=== PATIENT | male | born 1950 | race Caucasian/White ===

== ENCOUNTER → 2016-11-25 | Outpatient (CLI) | payer MEDICARE, OTHER ==
[2016-11-25 14:07] LABS: CH 30.4; CHCM 31.9; HCT 41.8 % (39.0-53.0); HDW 2.44; HGB 13.5 gm/dL (13.0-17.5); MCHC 32.3 g/dL (31.0-37.0); MCV 95.8 fL (80.0-100.0); RBC 4.36 m/uL (4.30-5.90); RDW 15.8 % (11.5-15.5); WBC 4.6 k/uL (3.8-10.6)
[2016-11-25 14:14] LABS: INR 1.8 (<1.1); Partial Thromboplastin Time 26.7 sec (22.0-30.0); Prothrombin Time 17.7 sec (9.0-12.0)
[2016-11-25 15:08] LABS: ALT 33 U/L (21-72); AST 31 U/L (17-59); Alkaline Phosphatase 133 U/L (38-126); Anion Gap 13 mmol/L; Blood Urea Nitrogen 13 mg/dL (9-20); Calcium 9.7 mg/dL (8.4-10.2); Carbon Dioxide 24 mmol/L (22-30); Chloride 104 mmol/L (98-107); Cholesterol 140 mg/dL (<200); Glucose 107 mg/dL (74-99); HDL Cholesterol 63 mg/dL (40-60); Iron 58 ug/dL (49-181); Magnesium 1.7 mg/dL (1.6-2.3); Non-African American GFR(MDRD) >60 (>60 ml/min/1.73 sqM); Phosphorous 2.6 mg/dL (2.5-4.5); Potassium 4.2 mmol/L (3.5-5.1); Sodium 141 mmol/L (137-145); Total Bilirubin 0.7 mg/dL (0.2-1.3); Total Protein 6.6 g/dL (6.3-8.2); Triglycerides 144 mg/dL (<150)
[2016-11-25 15:19] LABS: % Iron Saturation 13.7 % (20-50); Prealbumin 27 mg/dL (18-36); Total Iron Binding Capacity 422 ug/dL (261-462)
[2016-11-25 16:14] LABS: Vitamin B12 191 pg/mL (239-931)
[2016-11-25 22:57] LABS: Hemoglobin A1C 5.4 % (4.2-6.1)
[2016-12-01 18:28] LABS: Selenium 167 mcg/L (63-160)
== END | disposition home or self-care (01) ==
LOC: LABWHC1 13:31
PROVIDERS: ATTEND Surgery Plastic and Reconstructive Surgery
DX: E21.1 Secondary hyperparathyroidism, not elsewhere classified (principal); E89.1 Postprocedural hypoinsulinemia; D50.8 Other iron deficiency anemias; K90.89 Other intestinal malabsorption; E44.0 Moderate protein-calorie malnutrition; K74.1 Hepatic sclerosis; N19 Unspecified kidney failure; K50.90 Crohn's disease, unspecified, without complications; E55.9 Vitamin D deficiency, unspecified
CPT/HCPCS: 36415; 80053; 80061; 82306; 82525; 82607; 82728; 82746; 83036; 83540; 83550; 83735; 83970; 84100; 84134; 84255; 84425; 84443; 84590; 84630; 85027; 85610; 85730

== ENCOUNTER 2017-02-15 05:13 | Inpatient (IN) | payer MEDICARE, OTHER ==
[2017-02-15] MEDS ORDERED: MAGNESIUM SULFATE-D5W PMX 1 GM in DEXTROSE/WATER 1 100ML.BAG IVPB SCH (05:45)
[2017-02-15] MEDS ORDERED: HYDROmorphone 1 MG/ML 1 ML SYRINGE IVP STA ×2 (05:51→08:49)
[2017-02-15 05:53] LABS: Basophils % (A) 0 %; CH 31.2; CHCM 34.2; Eosinophils # (A) 0.1 k/uL (0-0.7); Eosinophils % (A) 2 %; HCT 41.6 % (39.0-53.0); HDW 2.48; Luc # (Auto) 0.11; Luc % (Auto) 2; Lymphocytes % (A) 17 %; MCH 30.9 pg (25.0-35.0); MCHC 33.7 g/dL (31.0-37.0); MCV 91.6 fL (80.0-100.0); Mean Platelet Volume 7.8; Monocytes # (A) 0.3 k/uL (0-1.0); Monocytes % (A) 6 %; Neutrophils # (A) 4.4 k/uL (1.3-7.7); Neutrophils % (A) 74 %; RBC 4.54 m/uL (4.30-5.90); RDW 15.5 % (11.5-15.5); WBC (Perox) 5.94
[2017-02-15 06:00] LABS: Appearance,Urine Clear (Clear); Bilirubin,Urine Negative (Negative); Glucose,Urine (UA) Negative (Negative); Ketones,Urine Trace (Negative); Leukocyte Esterase,Urine Negative (Negative); Mucus,Urine Rare /hpf; Nitrite,Urine Negative (Negative); PH, Urine 5.5 (5.0-8.0); Particle Count 3393; Protein,Urine 2+ (Negative); RBC,Urine <1 /hpf (0-5); Squamous Epithelial Cell,Urine <1 /hpf (0-4); UA Billing (MACRO vs. MICRO) MICRO; Urobilinogen,Urine <2.0 mg/dL (<2.0); WBC,Urine 1 /hpf (0-5)
[2017-02-15 06:04] LABS: ALT 52 U/L (21-72); AST 57 U/L (17-59); Alkaline Phosphatase 140 U/L (38-126); Amylase 78 U/L (30-110); Anion Gap 9 mmol/L; Blood Urea Nitrogen 16 mg/dL (9-20); Calcium 9.5 mg/dL (8.4-10.2); Carbon Dioxide 25 mmol/L (22-30); Chloride 106 mmol/L (98-107); Glucose 116 mg/dL (74-99); Non-African American GFR(MDRD) >60 (>60 ml/min/1.73 sqM); Potassium 3.8 mmol/L (3.5-5.1); Sodium 140 mmol/L (137-145); Total Bilirubin 1.3 mg/dL (0.2-1.3); Total Protein 6.2 g/dL (6.3-8.2)
--- NOTE | 2017-02-15 06:12 | XR ---
EXAM: XR Abdomen Complete, 2 or More Views CLINICAL HISTORY: Reason: Pain TECHNIQUE: Frontal view of the abdomen/pelvis with upright view of the abdomen. COMPARISON: No relevant prior studies available. FINDINGS: Intraperitoneal space: No free air. Punctate calcification within left hemipelvis, likely phlebolith. Gastrointestinal tract: Air-filled loops of small bowel throughout the abdomen and pelvis, measuring 4.1 cm. Bones/joints: Unremarkable. IMPRESSION: Dilated loops of small bowel throughout the abdomen and pelvis which may represent an ileus or small bowel obstruction.
--- NOTE | 2017-02-15 07:58 | ED ---
General Adult HPI - General Source: patient Mode of arrival: ambulatory Limitations: no limitations <Glen Greer - Last Filed: 02/15/17 07:57> <Anand Gayle - Last Filed: 02/15/17 08:29> - General Chief complaint: Abdominal Pain Stated complaint: Abdominal Pain Time Seen by Provider: 02/15/17 05:29 - Related Data Home Medications Medication Instructions Recorded Confirmed Allopurinol [Zyloprim] 300 mg PO DAILY 02/22/14 02/15/17 Multivitamin [Men's Multi-Vitamin] 1 tab PO DAILY 03/22/14 02/15/17 Cholecalciferol [Vitamin D3] 5,000 unit PO DAILY 07/26/14 02/15/17 Calcium Carbonate/Vitamin D3 1 tab PO BID 05/07/16 02/15/17 [Calcium 600-Vit D3 400 Caplet] Acetaminophen Tab [Tylenol] 500 - 1,000 mg PO DAILY PRN 06/20/16 02/15/17 predniSONE See Taper PO DIRECTED 02/15/17 02/15/17 Previous Rx's Medication Instructions Recorded Warfarin Sodium [Coumadin] 5 mg PO DAILY #0 06/23/16 Cyanocobalamin [Vitamin B-12] 1,000 mcg PO DAILY@1200 #60 tablet 12/23/16 Hydrocodone/Acetaminophen [[place] 1 each PO Q6HR PRN #20 tab 02/15/17 5-325] Ondansetron Odt [Zofran ODT] 4 mg PO Q8HR PRN #10 tab 02/15/17 Allergies Allergy/AdvReac Type Severity Reaction Status Date / Time No Known Allergies Allergy Verified 02/15/17 07:24 Review of Systems ROS Other: All systems not noted in ROS Statement are negative. <Glen Greer - Last Filed: 02/15/17 07:57> ROS Other: All systems not noted in ROS Statement are negative. <Anand Gayle - Last Filed: 02/15/17 08:29> ROS Statement: Those systems with pertinent positive or pertinent negative responses have been documented in the HPI. Past Medical History Past Medical History: Atrial Fibrillation, Blood Disorder, GERD/Reflux, Hypertension, Osteoarthritis (OA), Pulmonary Embolus (PE), Sleep Apnea/CPAP/ BIPAP Additional Past Medical History / Comment(s): PANCREATITIS. DIVERTICULITIS. Gout. Past hx. A-fib. Cyst on kidney. Hx. of a pneumothorax after a past surg. History of Any Multi-Drug Resistant Organisms: None Reported Past Surgical History: Bariatric Surgery, Bowel Resection, Cholecystectomy, Hernia Repair, Joint Replacement Additional Past Surgical History / Comment(s): COLONOSOCPY , 05-09-16 LAP EMA/LYSIS OF ADHESIONS,Bowel resection w/colostomy, then had reversed. Left knee replacement. Paraesophageol hiatal hernia repair. Lysis of adhesions. Excision of mediastinal mass. Gastric sleeve converted to darrell en y- aug 21, 2014. Past Anesthesia/Blood Transfusion Reactions: No Reported Reaction Past Psychological History: No Psychological Hx Reported Smoking Status: Former smoker Past Alcohol Use History: Heavy Additional Past Alcohol Use History / Comment(s): SMOKING: FOR 19 YRS, STOPPED, 1987. ETOH: HISTORY OF ABUSE- ADMITS TO DRINKING 2-3 MIXED DRINKS PER DAY Past Drug Use History: None Reported - Past Family History Father Family Medical History: Myocardial Infarction ([place]) Additional Family Medical History / Comment(s): from mi, emphysema Mother Family Medical History: Cancer Additional Family Medical History / Comment(s): ovarian Sister(s) Family Medical History: Cancer Additional Family Medical History / Comment(s): breast, has heart problems- defibrillator <Glen Greer - Last Filed: 02/15/17 07:57> General Exam Limitations: no limitations <Glen Greer - Last Filed: 02/15/17 07:57> Medical Decision Making - Lab Data Result diagrams: 02/15/17 05:45 02/15/17 05:45 <Glen Greer - Last Filed: 02/15/17 07:57> - Lab Data Result diagrams: 02/15/17 05:45 02/15/17 05:45 <Anand Gayle - Last Filed: 02/15/17 08:29> - Lab Data Lab Results 02/15/17 02/15/17 02/15/17 Range/Units 05:45 05:45 05:50 WBC 6.0 (3.8-10.6) k/uL RBC 4.54 (4.30-5.90) m/uL Hgb 14.0 (13.0-17.5) gm/dL Hct 41.6 (39.0-53.0) % MCV 91.6 (80.0-100.0) fL MCH 30.9 (25.0-35.0) pg MCHC 33.7 (31.0-37.0) g/dL RDW 15.5 (11.5-15.5) % Plt Count 217 (150-450) k/uL Neutrophils % 74 % Lymphocytes % 17 % Monocytes % 6 % Eosinophils % 2 % Basophils % 0 % Neutrophils # 4.4 (1.3-7.7) k/uL Lymphocytes # 1.0 (1.0-4.8) k/uL Monocytes # 0.3 (0-1.0) k/uL Eosinophils # 0.1 (0-0.7) k/uL Basophils # 0.0 (0-0.2) k/uL Sodium 140 (137-145) mmol/L Potassium 3.8 (3.5-5.1) mmol/L Chloride 106 (98-107) mmol/L Carbon Dioxide 25 (22-30) mmol/L Anion Gap 9 mmol/L BUN 16 (9-20) mg/dL Creatinine 0.80 (0.66-1.25) mg/dL Est GFR (MDRD) Af Amer >60 (>60 ml/min/1.73 sqM) Est GFR (MDRD) Non-Af >60 (>60 ml/min/1.73 sqM) Glucose 116 H (74-99) mg/dL Calcium 9.5 (8.4-10.2) mg/dL Total Bilirubin 1.3 (0.2-1.3) mg/dL AST 57 (17-59) U/L ALT 52 (21-72) U/L Alkaline Phosphatase 140 H (38-126) U/L Total Protein 6.2 L (6.3-8.2) g/dL Albumin 3.4 L (3.5-5.0) g/dL Amylase 78 (30-110) U/L Lipase 616 H (23-300) U/L Urine Color Yellow Urine Appearance Clear (Clear) Urine pH 5.5 (5.0-8.0) Ur Specific [place] 1.020 (1.001-1.035) Urine Protein 2+ H (Negative) Urine Glucose (UA) Negative (Negative) Urine Ketones Trace H (Negative) Urine Blood Negative (Negative) Urine Nitrite Negative (Negative) Urine Bilirubin Negative (Negative) Urine Urobilinogen <2.0 (<2.0) mg/dL Ur Leukocyte Esterase Negative (Negative) Urine RBC <1 (0-5) /hpf Urine WBC 1 (0-5) /hpf Ur Squamous Epith Cells <1 (0-4) /hpf Urine Mucus Rare H (None) /hpf Disposition <Glen Greer - Last Filed: 02/15/17 07:57> <Anand Gayle - Last Filed: 02/15/17 08:29> Clinical Impression: Abdominal pain, Pancreatitis, acute Disposition: ADMITTED IP TO THIS HOSP Condition: Fair Instructions: Pancreatitis (ED) Prescriptions: Hydrocodone/Acetaminophen [[place] 5-325] 1 each PO Q6HR PRN #20 tab PRN Reason: Pain Ondansetron Odt [Zofran ODT] 4 mg PO Q8HR PRN #10 tab PRN Reason: Nausea Referrals: Rebekah Hood DO [Primary Care Provider] - 1-2 days
[2017-02-15] MEDS ORDERED: SODIUM CHLORIDE 0.9% 1,000 ML IV ONE (08:30)
[2017-02-15] MEDS ORDERED: HYDROmorphone 1 MG/ML 1 ML SYRINGE IVP PRN (08:33)
[2017-02-15] MEDS ORDERED: ONDANSETRON 4 MG/2 ML VIAL IVP PRN (08:33)
[2017-02-15 09:43] VITALS: BMI 37.6
[2017-02-15 10:55] LABS: Prothrombin Time 19.4 sec (9.0-12.0)
[2017-02-15] MEDS: MULTIVITAMINS, THERA 1 EACH TAB PO SCH (14:24)
[2017-02-15] MEDS: CHOLECALCIFEROL 1,000 UNIT TAB PO SCH (14:24)
[2017-02-15] MEDS: ALLOPURINOL 300 MG TAB PO SCH (14:24)
[2017-02-15] MEDS: predniSONE 10 MG TAB PO SCH (14:24)
[2017-02-15] MEDS: WARFARIN 5 MG TAB PO SCH (17:33)
[2017-02-15] MEDS: CALCIUM CARB-VIT D 500MG-200UN 1 EACH TAB PO SCH (17:33)
[2017-02-15] MEDS ORDERED: cloNIDine HCL 0.1 MG TAB PO PRN (17:34)
[2017-02-15] MEDS ORDERED: LORazepam 2 MG/ML SYRINGE IV PRN ×3 (17:54)
[2017-02-15] MEDS: PANTOPRAZOLE 40 MG/10 ML VIAL IVP SCH (18:25)
[2017-02-15] MEDS: TEMAZEPAM 15 MG CAP PO PRN (20:41)
[2017-02-15] MEDS: HYDROmorphone 1 MG/ML 1 ML SYRINGE IVP PRN (20:42)
[2017-02-16] MEDS: HYDROmorphone 1 MG/ML 1 ML SYRINGE IVP PRN ×3 (03:35→20:31)
[2017-02-16 06:51] LABS: Basophils % (A) 0 %; CH 30.8; CHCM 33.5; Eosinophils # (A) 0.1 k/uL (0-0.7); Eosinophils % (A) 2 %; HCT 39.4 % (39.0-53.0); HDW 2.39; Luc # (Auto) 0.11; Luc % (Auto) 2; Lymphocytes # (A) 0.9 k/uL (1.0-4.8); Lymphocytes % (A) 14 %; MCH 30.6 pg (25.0-35.0); MCV 92.5 fL (80.0-100.0); Mean Platelet Volume 7.7; Monocytes # (A) 0.5 k/uL (0-1.0); Monocytes % (A) 7 %; Neutrophils % (A) 76 %; RBC 4.26 m/uL (4.30-5.90); RDW 15.4 % (11.5-15.5); WBC 6.6 k/uL (3.8-10.6); WBC (Perox) 6.87
[2017-02-16 06:54] LABS: INR 2.2 (<1.1)
[2017-02-16 07:04] LABS: ALT 38 U/L (21-72); AST 31 U/L (17-59); Alkaline Phosphatase 121 U/L (38-126); Amylase 91 U/L (30-110); Anion Gap 4 mmol/L; Blood Urea Nitrogen 11 mg/dL (9-20); Calcium 9.5 mg/dL (8.4-10.2); Carbon Dioxide 27 mmol/L (22-30); Chloride 107 mmol/L (98-107); Cholesterol 113 mg/dL (<200); Glucose 107 mg/dL (74-99); HDL Cholesterol 65 mg/dL (40-60); Magnesium 1.6 mg/dL (1.6-2.3); Non-African American GFR(MDRD) >60 (>60 ml/min/1.73 sqM); Potassium 3.9 mmol/L (3.5-5.1); Sodium 138 mmol/L (137-145); Total Bilirubin 0.9 mg/dL (0.2-1.3); Total Protein 5.7 g/dL (6.3-8.2); Triglycerides 98 mg/dL (<150)
--- NOTE | 2017-02-16 08:17 | XR ---
EXAMINATION TYPE: XR chest 1V portable DATE OF EXAM: 02/16/2017 COMPARISON: Prior chest x-ray 12 January 2016 HISTORY: Congestive heart failure, pancreatitis TECHNIQUE: Single frontal view of the chest is obtained. FINDINGS: Patchy basilar density persists. Heart size appears accentuated which may be at least in p art due to rotation. No evident pneumothorax or sizable effusion. IMPRESSION: Similar findings to prior exam. Basilar atelectasis versus scar. Borderline cardiac size .
--- NOTE | 2017-02-16 08:21 | US ---
EXAMINATION TYPE: US abdomen limited DATE OF EXAM: 02/16/2017 COMPARISON: Prior 13 January 2016, prior CT abdomen pelvis 10 July 2016 CLINICAL HISTORY: abd distension. Epigastric pain, pancreatitis, cholecystectomy, abdominal distensio n possible ascites vs. hepatosplenomegaly, patient states right renal mass was frozen 11/07 EXAM MEASUREMENTS: Liver Length: 18.7 cm Gallbladder Wall: Surgically absent CBD: 0.5 cm Right Kidney: 13.4 x 5.4 x 5.1 cm Pancreas: Obscured by overlying bowel gas Liver: enlarged, heterogeneous Gallbladder: Surgically absent CBD: appears wnl Right Kidney: enlarged with lobulated contour. 2.5cm isoechoic lesion lower pole, difficult to visua lize as on prior exam. Possible cystic area upper pole = 2.1cm, unable to clear low-level echoes Spleen: measures 9.4cm All 4 abdominal quadrants scanned: no evidence of ascites IMPRESSION: Lesion associated with the lower pole of the right kidney is again noted and is represent ative of a solid lesion as noted on prior CT. There may be fatty infiltration of the liver, hepatocel lular disease, there is hepatomegaly. Postop change. Limited exam.
--- NOTE | 2017-02-16 08:22 | HP ---
DATE OF ADMISSION: 02/15/2017 CHIEF COMPLAINT: Abdominal pain and pancreatitis. HISTORY OF PRESENT ILLNESS: This 66-year-old gentleman with a past medical history of multiple medical problems including atrial fibrillation, history of GERD, history of DJD, pulmonary embolism, history of pancreatitis, history of bariatric surgery being followed by Dr. Hood in the outpatient setting is complaining of abdominal pain which is felt in the anterior part of the chest which was radiating to the back and because of increasing pain and other symptomatology, patient came to [facility] and admitted to the hospital for further evaluation and treatment. The patient previously had alcoholic gastritis and pancreatitis as well. There is no history of any fevers, rigors, no history of headache, loss of consciousness, seizures at this time. The patient also complains of nausea. PAST MEDICAL HISTORY: History of atrial fibrillation, history of gastroesophageal reflux disease, history of DJD, history of pulmonary embolism, history of pancreatitis, bariatric surgery. Medications prior to admission include: Home medications: 1. Tylenol 500 to 1000 mg daily p.r.n. 2. Prednisone taper. 3. Coumadin 5 mg daily. 4. Multivitamins one p.o. daily. 5. Vitamin B12 1000 mcg p.o. daily. 6. Vitamin D3, 5000 units daily. 7. Calcium with vitamin D one p.o. b.i.d. 8. Zyloprim 300 mg daily. 9. Zofran ODT 4 mg p.o. q.8 p.r.n. 10. [place] 5 mg q6h p.r.n. ALLERGIES: None. FAMILY HISTORY: History of ovarian cancer in the family. SOCIAL HISTORY: Previous history of smoking, history of alcohol, 2 drinks per day according to the patient. REVIEW OF SYSTEMS: ENT: No diminishing hearing. No diminished vision. CARDIOVASCULAR: No angina, palpitations. RESPIRATORY: No cough. No hemoptysis. GI: As mentioned earlier. : Mentioned earlier. CENTRAL NERVOUS SYSTEM: No numbness, weakness. ALLERGY/IMMUNOLOGY: No asthma or hayfever. MUSCULOSKELETAL: As mentioned earlier. DERMATOLOGY: Negative. RHEUMATOLOGY: Negative. HEMATOLOGY/ONCOLOGY: No history of anemia. ENDOCRINE: No history of diabetes mellitus or hypothyroidism. CONSTITUTIONAL: As mentioned earlier. PSYCHIATRY: As mentioned earlier. PHYSICAL EXAMINATION: The patient is alert and oriented times three. Pulse 50, blood pressure 190/73, respiratory rate 16, temperature 98 degrees, pulse ox 97% on room air. HEENT: Conjunctivae normal. Oral mucosa moist. NECK: No jugular venous distention. No carotid bruit. No lymph node enlargement. CARDIOVASCULAR: S1, S2 muffled. No S3, no S4. RESPIRATORY: Breath sounds diminished at the bases. A few scattered rhonchi. No crackles. ABDOMEN: Soft. Mild diffuse distention present. Flanks are also dull. Minimal tenderness in epigastrium. No guarding. No rigidity. No mass palpable. LEGS: Bilateral leg edema. CENTRAL NERVOUS SYSTEM: Higher functions as mentioned earlier. Moves all four limbs. No focal deficits. LYMPHATICS: No lymph nodes palpable in the neck, axillae or groin. SKIN: No ulcer, rash or bleeding. LABS: CBC within normal limits. INR 2, sodium is 140 and albumin is 3.4. Amylase 78, lipase 6, 16. ASSESSMENT: 1. Abdominal pain, possible acute on chronic pancreatitis. 2. History of possible alcohol-induced. 3. History of ETOH. 4. Possibly ETOH withdrawal. 5. Hypoalbuminemia with mild to moderate protein calorie malnutrition. 6. Increased random blood sugar. 7. Coumadin monitoring. 8. Obesity with body mass index 37.7. 9. History of ETOH. 10. History of atrial fibrillation, chronic intermittent. 11. History of gastroesophageal reflux disease. 12. History of degenerative joint disease. 13. History of pulmonary embolism. 14. History of gout. 15. History of diverticulitis. 16. History of pneumothorax. 17. History of bariatric surgery. 18. History of bowel resection. 19. History of cholecystectomy. 20. History of colonoscopy. 21. History of paraesophageal hiatal hernia. 22. History of degenerative joint disease and left knee replacement. 23. History of excision of mediastinal mass. 24. History of gastric sleeve converted to Bibi-En-Y. 25. Remote history of nicotine dependence. 26. FULL CODE. RECOMMENDATIONS AND DISCUSSION: In this 66-year-old gentleman who presented with the multiple complex medical issues, we will monitor the patient closely. Continue the current medications. Continue symptomatic treatment. Otherwise, at this time I would recommend continue with current medications. Clear liquid diet. I would recommend repeat labs and symptomatic treatment of pain, alcohol withdrawal symptoms, seizure precautions, CIWA protocol. Guarded prognosis because of multiple complex medical issues. We will monitor PT and INR closely. Further recommendations to follow. A copy of dictation being forwarded to Dr. Hood who is the primary care physician. rehab is also recommended. PADMINI
[2017-02-16] MEDS: PANTOPRAZOLE 40 MG/10 ML VIAL IVP SCH (08:39)
[2017-02-16] MEDS: ALLOPURINOL 300 MG TAB PO SCH (08:39)
[2017-02-16] MEDS: predniSONE 10 MG TAB PO SCH (08:40)
[2017-02-16] MEDS: HYDROcodone/APAP 5-325MG 1 EACH TAB PO PRN ×3 (08:46→23:07)
[2017-02-16] MEDS: CHOLECALCIFEROL 1,000 UNIT TAB PO SCH (12:02)
[2017-02-16] MEDS: THIAMINE 100 MG TAB PO SCH (12:03)
[2017-02-16] MEDS: FOLIC ACID 1 MG TAB PO SCH (12:03)
[2017-02-16] MEDS: MULTIVITAMINS, THERA 1 EACH TAB PO SCH (12:03)
[2017-02-16] MEDS: CYANOCOBALAMIN 500 MCG TAB PO SCH (12:03)
[2017-02-16] MEDS: CALCIUM CARB-VIT D 500MG-200UN 1 EACH TAB PO SCH ×2 (12:03→17:15)
[2017-02-16] MEDS: IOHEXOL 350 MG/ML 25 ML BOTTLE (ORAL USE) PO PRN ×2 (13:01→13:56)
--- NOTE | 2017-02-16 15:06 | CT ---
EXAMINATION TYPE: CT abdomen pelvis wo con DATE OF EXAM: 02/16/2017 2:36 PM COMPARISON: 07/10/2016 HISTORY: Abdominal pain CT DLP: mGycm Automated exposure control for dose reduction was used. TECHNIQUE: Helical acquisition of images was performed from the lung bases through the pelvis. FINDINGS: There are old posterior healed rib fractures. There is no pleural effusion. There are clips apparentl y at the gastroesophageal junction. There is apparent bariatric surgery. Liver shows no focal defect. There are clips from cholecystectomy. Spleen appears normal. There is no pancreatic mass. There is no adrenal mass. There are multiple bilateral renal cortical cysts that measure up to 2 cm. There are nonobstructing 5 mm left renal calculi. There is no hydronephrosis. There is no retroperito erica adenopathy. There is no ascites. Bladder distends smoothly. There are prostatic calcifications. I see no evidence of a bowel obstruction. There are multiple diverticula in the left colon. There is been apparent resection of the right colon. There is stranding around both kidneys. There are spondyl otic changes in the lower lumbar spine. There is minimal edema in the inferior pancreas in the uncina te process. IMPRESSION: THERE IS MINIMAL EDEMA ASSOCIATED WITH THE UNCINATE PROCESS OF THE PANCREAS THAT IS NEW COMPARED TO O LD EXAM AND COULD RELATE TO MILD FOCAL PANCREATITIS. THERE ARE EXOPHYTIC RENAL CORTICAL CYSTS. THERE IS A 2 CM EXOPHYTIC ROUNDED MASS ON THE POSTERIOR RIG HT KIDNEY THAT SHOWED SOME ENHANCEMENT ON THE OLD CT SCAN OF 07/10/2016 AND CONSISTENT WITH TUMOR. TH IS IS NOT CHANGED IN SIZE NONOBSTRUCTING LEFT RENAL CALCULI. PREVIOUS SURGERY.
[2017-02-16] MEDS: WARFARIN 5 MG TAB PO SCH (17:15)
--- NOTE | 2017-02-16 20:43 | PN ---
DATE OF SERVICE: 02/16/2017 This 66-year-old gentleman who was admitted with abdominal pain acute on chronic pancreatitis, is being closely monitored. The patient has recent history of ETOH. The patient also had renal cancer on the right side which was treated with ablation in [facility] this October. The patient had a CT scan prior to that and no CT scan after that according to the patient. The patient's lipase is elevated but amylase is normal. Past medical history reviewed. REVIEW OF SYSTEMS: CARDIOVASCULAR: No angina or palpitations. GASTROINTESTINAL: As mentioned earlier. : No dysuria. Nervous system: No numbness or weakness. Current medications are reviewed and include: 1. [place] 5 mg q6h p.r.n. 2. Zyloprim 300 mg daily. 3. OsCal with vitamin D p.o. b.i.d. 4. [place] 0.1 q.4 p.r.n. 5. Vitamin B12 1000 mcg p.o. b.i.d. 6. Folic acid 1 mg. 7. Dilaudid 0.5 mg q6h p.r.n. 9. Ativan 1 mg q2 p.r.n. 10. Multivitamins one p.o. daily. 11. Zofran 4 mg IV q6h p.r.n. 12. Protonix 40 mg IV daily. 13. Prednisone 20 mg daily and 10 mg daily. 14. Restoril 15 mg 15. Vitamin B1 100 mg daily. 16. Coumadin 5 mg p.o. daily. PHYSICAL EXAMINATION: The patient is alert and oriented times three. Pulse 83, blood pressure 159/94, respiratory rate 16, temperature 97.8, pulse ox 94% on room air. HEENT: Conjunctivae normal. Oral mucosa moist. NECK: No jugular venous distention. No carotid bruit. No lymph node enlargement. CARDIOVASCULAR: S1, S2 muffled. No S3, no S4. RESPIRATORY: Breath sounds diminished at the bases. A few rhonchi. No crackles. ABDOMEN: Soft, obese, mild diffuse discomfort. No guarding. No rigidity. No mass palpable. LEGS: No edema. No swelling. CENTRAL NERVOUS SYSTEM: Higher functions as mentioned earlier. Moves all four limbs. No focal deficits. LYMPHATICS: No lymph nodes palpable in the neck, axillae or groin. SKIN: No ulcer, rash or bleeding. LABORATORY DATA: At this time shows WBC 6.7, hemoglobin is 13. INR 2.2, glucose 107. Albumin is 2.9 and AST 65, amylase 91 and lipase 71 compared to 616 yesterday. Urine drug screen noted. ASSESSMENT: 1. Abdominal pain, possible acute on chronic pancreatitis. Possibly secondary to ETOH. 2. Elevated lipase with normal amylase. 3. History of right renal cancer, status post ablation, [facility] earlier this year. 4. History of ETOH. 5. ETOH withdrawal and early delirium tremens. 6. Hypovolemia with mild to moderate protein calorie malnutrition. 7. Increased random blood sugar. 8. Coumadin monitoring. 9. Obesity, body mass index of 37.7. 10. History of ETOH. 11. Atrial fibrillation, chronic intermittent. 12. History of gastroesophageal reflux disease. 13. History of degenerative joint disease. 14. History of pulmonary embolus. 15. History of gout. 16. History of diverticulitis. 17. History of pneumothorax. 18. History of bariatric surgery. 19. History of bowel resection. 20. History of cholecystectomy. 21. History of colonoscopy. 22. History of paraesophageal hiatal hernia. 23. History of degenerative joint disease and left knee replacement. 24. Excision of mediastinal mass. 25. History of gastric sleeve converted to Bibi-En-Y. 26. Remote history of nicotine dependence. 27. FULL CODE. RECOMMENDATIONS AND DISCUSSION: In this 66-year-old gentleman who presented with multiple complex medical issues, we will monitor the patient closely. Continue the current medications. Continue symptomatic treatment. Otherwise, at this time, I would recommend CT scan of the abdomen and pelvis. Closely follow with multiple consultants. Repeat labs. Guarded prognosis. Further recommendations to follow. MTDD
[2017-02-16] MEDS: TEMAZEPAM 15 MG CAP PO PRN (23:07)
[2017-02-17] MEDS: HYDROmorphone 1 MG/ML 1 ML SYRINGE IVP PRN ×2 (03:00→22:49)
[2017-02-17 06:52] LABS: Basophils % (A) 0 %; CH 30.4; Eosinophils # (A) 0.2 k/uL (0-0.7); Eosinophils % (A) 3 %; HCT 40.9 % (39.0-53.0); HDW 2.24; HGB 13.5 gm/dL (13.0-17.5); Luc # (Auto) 0.16; Luc % (Auto) 3; Lymphocytes # (A) 1.1 k/uL (1.0-4.8); Lymphocytes % (A) 17 %; MCH 31.5 pg (25.0-35.0); MCV 95.5 fL (80.0-100.0); Mean Platelet Volume 8.3; Monocytes # (A) 0.4 k/uL (0-1.0); Monocytes % (A) 6 %; Neutrophils # (A) 4.7 k/uL (1.3-7.7); Neutrophils % (A) 71 %; RBC 4.28 m/uL (4.30-5.90); RDW 15.7 % (11.5-15.5); WBC 6.7 k/uL (3.8-10.6); WBC (Perox) 7.09
[2017-02-17 07:02] LABS: ALT 42 U/L (21-72); AST 25 U/L (17-59); Alkaline Phosphatase 124 U/L (38-126); Amylase 74 U/L (30-110); Anion Gap 4 mmol/L; Blood Urea Nitrogen 9 mg/dL (9-20); Calcium 9.6 mg/dL (8.4-10.2); Carbon Dioxide 26 mmol/L (22-30); Chloride 107 mmol/L (98-107); Glucose 92 mg/dL (74-99); Non-African American GFR(MDRD) >60 (>60 ml/min/1.73 sqM); Potassium 3.6 mmol/L (3.5-5.1); Sodium 137 mmol/L (137-145); Total Bilirubin 0.6 mg/dL (0.2-1.3); Total Protein 5.4 g/dL (6.3-8.2)
[2017-02-17] MEDS: predniSONE 20 MG TAB PO SCH (08:19)
[2017-02-17] MEDS: PANTOPRAZOLE 40 MG/10 ML VIAL IVP SCH (08:19)
[2017-02-17] MEDS: ALLOPURINOL 300 MG TAB PO SCH (08:19)
[2017-02-17] MEDS: HYDROcodone/APAP 5-325MG 1 EACH TAB PO PRN ×2 (08:28→18:38)
[2017-02-17] MEDS: MULTIVITAMINS, THERA 1 EACH TAB PO SCH (11:43)
[2017-02-17] MEDS: THIAMINE 100 MG TAB PO SCH (11:43)
[2017-02-17] MEDS: FOLIC ACID 1 MG TAB PO SCH (11:43)
[2017-02-17] MEDS: CHOLECALCIFEROL 1,000 UNIT TAB PO SCH (11:43)
[2017-02-17] MEDS: CYANOCOBALAMIN 500 MCG TAB PO SCH (11:43)
[2017-02-17] MEDS: CALCIUM CARB-VIT D 500MG-200UN 1 EACH TAB PO SCH ×2 (11:43→18:34)
--- NOTE | 2017-02-17 16:57 | PN ---
DATE OF SERVICE: 02/17/2017 This 66-year-old gentleman who was admitted with abdominal pain also had features of acute pancreatitis. Patient continues to have abdominal discomfort. Patient also on clear liquids at this time. The patient had CT scan of the showed significant swelling of the uncinate process and as well as multiple other findings as well. The patient also had a complex procedure at [facility] recently regarding right renal cancer. PAST MEDICAL HISTORY: Reviewed. REVIEW OF SYSTEMS: VITAL SIGNS: No angina or palpitations. RESPIRATORY: As mentioned earlier. GI: As mentioned earlier. : No nausea or vomiting. PHYSICAL EXAMINATION: Alert and oriented times three. Pulse is 59, blood pressure 159/80, respiratory rate 16, temperature 98.7, pulse ox 94% on room air. HEENT: Conjunctivae normal. NECK: No jugular venous distention. CARDIOVASCULAR: S1, S2 muffled. RESPIRATORY: Breath sounds diminished at the bases A few scattered rhonchi, no crackles. ABDOMEN: Soft, obese, mild diffuse discomfort present. No guarding. No rigidity. No mass palpable. Legs: No edema. Nervous system: No focal deficits. Labs at this time shows WBC 6.7, otherwise lipase 608. ASSESSMENT: 1. Abdominal pain, acute pancreatitis possibly secondary to ETOH. 2. Elevated lipase with normal amylase. 3. History of right renal cancer, status post ablation at [facility] earlier this year. 4. History of ETOH withdrawal and early delirium tremens. 5. Hypoalbuminemia with mild to moderate protein calorie malnutrition. 6. Increased random blood sugar. 7. Coumadin monitoring. 8. Obesity, body mass index of 37.7. 9. History of ETOH. 10. Paroxysmal atrial fibrillation, chronic intermittent. 11. History of gastroesophageal reflux disease. 12. History of degenerative joint disease. 13. History of pulmonary embolism. 14. History of gout. 15. History of diverticulitis. 16. History of pneumothorax. 17. History of bariatric surgery. 18. History of bowel resection. 19. History of cholecystectomy. 20. History of colonoscopy. 21. History of paraesophageal hiatal hernia. 22. History of degenerative joint disease left knee replacement. 23. History of excision of mediastinal mass. 24. History of gastric sleeve converted to Bibi-En-Y. 25. Remote history of nicotine dependence. 26. FULL CODE. RECOMMENDATIONS AND DISCUSSION: Recommend to continue current medications. Continue with monitoring. Symptomatic treatment. Otherwise, at this time, pain medications. Proton pump inhibitors, gastroenterology evaluation. Abdominal CT scan noted. Prognosis guarded because of multiple complex medical issues. Further recommendations to follow. Also recommended continued alcohol cessation and possible rehab. Otherwise prognosis is guarded and advance diet per gastroenterology. Guarded prognosis. Further recommendations to follow.
[2017-02-17] MEDS: WARFARIN 5 MG TAB PO SCH (18:34)
[2017-02-17] MEDS: TEMAZEPAM 15 MG CAP PO PRN (22:50)
[2017-02-18] MEDS: HYDROcodone/APAP 5-325MG 1 EACH TAB PO PRN (05:42)
[2017-02-18 07:43] LABS: Basophils % (A) 0 %; CH 30.6; CHCM 32.2; Eosinophils # (A) 0.3 k/uL (0-0.7); Eosinophils % (A) 4 %; HCT 39.9 % (39.0-53.0); HDW 2.24; HGB 12.8 gm/dL (13.0-17.5); Luc # (Auto) 0.17; Luc % (Auto) 3; Lymphocytes % (A) 16 %; MCH 30.5 pg (25.0-35.0); MCV 95.2 fL (80.0-100.0); Mean Platelet Volume 8.2; Monocytes # (A) 0.5 k/uL (0-1.0); Monocytes % (A) 8 %; Neutrophils # (A) 4.3 k/uL (1.3-7.7); Neutrophils % (A) 69 %; RBC 4.19 m/uL (4.30-5.90); RDW 15.6 % (11.5-15.5); WBC 6.3 k/uL (3.8-10.6); WBC (Perox) 6.18
[2017-02-18 07:46] VITALS: BP 154/94
[2017-02-18 07:50] LABS: ALT 36 U/L (21-72); AST 25 U/L (17-59); Alkaline Phosphatase 112 U/L (38-126); Amylase 61 U/L (30-110); Anion Gap 5 mmol/L; Blood Urea Nitrogen 8 mg/dL (9-20); Calcium 9.2 mg/dL (8.4-10.2); Carbon Dioxide 26 mmol/L (22-30); Chloride 107 mmol/L (98-107); Glucose 92 mg/dL (74-99); Non-African American GFR(MDRD) >60 (>60 ml/min/1.73 sqM); Sodium 138 mmol/L (137-145); Total Protein 5.6 g/dL (6.3-8.2)
[2017-02-18 07:54] LABS: Potassium 3.5 mmol/L (3.5-5.1)
[2017-02-18] MEDS: PANTOPRAZOLE 40 MG/10 ML VIAL IVP SCH (08:22)
[2017-02-18] MEDS: predniSONE 20 MG TAB PO SCH (08:22)
[2017-02-18] MEDS: ALLOPURINOL 300 MG TAB PO SCH (08:22)
[2017-02-18] MEDS: CHOLECALCIFEROL 1,000 UNIT TAB PO SCH (10:51)
[2017-02-18] MEDS: CYANOCOBALAMIN 500 MCG TAB PO SCH (10:51)
[2017-02-18] MEDS: MULTIVITAMINS, THERA 1 EACH TAB PO SCH (10:51)
[2017-02-18] MEDS: FOLIC ACID 1 MG TAB PO SCH (10:51)
[2017-02-18] MEDS: CALCIUM CARB-VIT D 500MG-200UN 1 EACH TAB PO SCH ×2 (10:51→17:17)
[2017-02-18] MEDS: THIAMINE 100 MG TAB PO SCH (10:54)
[2017-02-18] MEDS ORDERED: Potassium Replacement Protocol 1 EACH MISC MISCELLANE PRN (11:15)
--- NOTE | 2017-02-18 11:15 | P.CONS ---
History of Present Illness - Reason for Consult Consult date: 02/18/17 Pancreatitis Requesting physician: Jamal Steele - History of Present Illness 66-year-old gentleman with a past medical history of pulmonary embolism with Coumadin monitoring, atrial fibrillation, hypertension, EtOH abuse with daily usage, alcohol pancreatitis, cholelithiasis status post laparoscopic cholecystectomy a year ago, gastric sleeve converted to Bibi-en-Y, bowel resection with ostomy and subsequent reversal, morbid obesity. Since with acute upper abdominal pain and elevated lipase consistent with pancreatitis. Admission white count 6.6. LFTs total bilirubin normal. Lipase 871. Amylase 91. Today lipase is 330. Amylase 61. Denies changes in the color urine or acholic stools. Review of Systems Constitutional: Denies fever, chills, sweats, weight gain, or loss. HEENT: Negative for migraines, blurred vision or loss, earaches, drainage, tinnitus, oral mucosal lesions, dysphagia, or odynophagia. Cardiac: Atrial fibrillation. Negative for chest pain, arrhythmias, or palpitation. Respiratory: PE. Negative for shortness of breath, hemoptysis, cough, or sputum production. Gastrointestinal: See HPI for pertinent findings. Genitourinary: Negative for hematuria, urgency, frequency, polyuria, dysuria, or penile discharge. Musculoskeletal: Negative for muscle aches, swelling, arthritis, and arthralgias. Neurologic: Negative for stroke or TIA. Endocrine: Negative for thyroid problems. Skin: Negative for rash or itching. Psychiatric: Negative history for depression and anxiety All systems: negative (See HPI) Past Medical History Past Medical History: Atrial Fibrillation, Blood Disorder, GERD/Reflux, Osteoarthritis (OA), Pulmonary Embolus (PE) Additional Past Medical History / Comment(s): PANCREATITIS. DIVERTICULITIS. Gout. Past hx. A-fib. Cyst on kidney. Hx. of a pneumothorax after a past surg. History of Any Multi-Drug Resistant Organisms: None Reported Past Surgical History: Bariatric Surgery, Bowel Resection, Cholecystectomy, Hernia Repair, Joint Replacement Additional Past Surgical History / Comment(s): COLONOSOCPY , 05-09-16 LAP EMA/LYSIS OF ADHESIONS,Bowel resection w/colostomy, then had reversed. Left knee replacement. Paraesophageol hiatal hernia repair. Lysis of adhesions. Excision of mediastinal mass. Gastric sleeve converted to bibi en y- aug 21, 2014. Past Anesthesia/Blood Transfusion Reactions: No Reported Reaction Past Psychological History: No Psychological Hx Reported Smoking Status: Former smoker Past Alcohol Use History: Heavy Additional Past Alcohol Use History / Comment(s): SMOKING: FOR 19 YRS, STOPPED, 1987. ETOH: HISTORY OF ABUSE- ADMITS TO DRINKING 2-3 MIXED DRINKS PER DAY Past Drug Use History: None Reported - Past Family History Father Family Medical History: Myocardial Infarction ([place]) Additional Family Medical History / Comment(s): from [place], emphysema Mother Family Medical History: Cancer Additional Family Medical History / Comment(s): ovarian Sister(s) Family Medical History: Cancer Additional Family Medical History / Comment(s): breast, has heart problems- defibrillator Medications and Allergies Home Medications Medication Instructions Recorded Confirmed Type Allopurinol [Zyloprim] 300 mg PO DAILY 02/22/14 02/15/17 History Multivitamin [Men's Multi-Vitamin] 1 tab PO DAILY 03/22/14 02/15/17 History Cholecalciferol [Vitamin D3] 5,000 unit PO DAILY 07/26/14 02/15/17 History Calcium Carbonate/Vitamin D3 1 tab PO BID 05/07/16 02/15/17 History [Calcium 600-Vit D3 400 Caplet] Acetaminophen Tab [Tylenol] 500 - 1,000 mg PO DAILY PRN 06/20/16 02/15/17 History predniSONE See Taper PO DIRECTED 02/15/17 02/15/17 History Allergies Allergy/AdvReac Type Severity Reaction Status Date / Time No Known Allergies Allergy Verified 02/15/17 07:24 Physical Exam Vitals: Vital Signs Temp Pulse Pulse Resp BP Pulse Ox 02/18/17 08:00 63 63 17 02/18/17 07:46 96.0 F L 63 17 154/94 95 02/18/17 01:13 96.3 F L 77 16 120/57 97 02/17/17 19:00 98.1 F 63 16 93 L 02/17/17 15:00 98.5 F 56 L 16 141/94 94 L Intake and Output 02/17/17 02/18/17 02/18/17 22:59 06:59 14:59 Intake Total 200 600 Balance 200 600 Intake: Oral 200 600 Other: Voiding Method Toilet Toilet # Voids 1 2 Weight 122.47 kg Patient Weight 02/19/17 06:59 Weight 122.47 kg General appearance: The patient is alert, oriented, in no acute distress. HET: Head is normocephalic and atraumatic. Pupils are equal and reactive. Oropharynx is clear without lesions. Neck: Supple without lymphadenopathy. Trachea midline. Heart: S1 S2. Regular rate and rhythm. Lungs: No crackles or wheezes are heard. Abdomen: Soft, large protuberant abdomen with incisional hernia reducible, mild epigastric left upper quadrant abdominal discomfort, nondistended with bowel sounds. No peritoneal signs. No palpable organomegaly or masses. Extremities: Normal skin color and turgor. No cyanosis, rash, ulceration, clubbing, or edema. Radial and pedal pulses are 2/4 bilaterally. Neurological: No focal deficits. Strength and sensation are grossly intact. Results CBC & Chem 7: 02/18/17 07:22 02/18/17 07:22 Labs: Abnormal Lab Results - Last 24 Hours (Table) 02/18/17 02/18/17 Range/Units 07:22 07:22 RBC 4.19 L (4.30-5.90) m/uL Hgb 12.8 L (13.0-17.5) gm/dL RDW 15.6 H (11.5-15.5) % BUN 8 L (9-20) mg/dL Total Protein 5.6 L (6.3-8.2) g/dL Albumin 2.8 L (3.5-5.0) g/dL Lipase 330 H (23-300) U/L Assessment and Plan (1) Pancreatitis, acute Status: Acute (2) ETOH abuse Status: Acute (3) History of Bibi-en-Y gastric bypass Status: Acute (4) Warfarin-induced coagulopathy Status: Acute (5) History of pulmonary embolism Status: Acute (6) History of atrial fibrillation Status: Acute Plan: 1. Pancreatic enzymes improving. Will advance diet. Supportive measures. Alcohol abstinence strongly advised. Thank you for this kind referral and the opportunity to participate in the care of your patient. This consultation was discussed with Dr. Emanuel. The impression and plan of care have been directed as dictated.
[2017-02-18 14:10] VITALS: PULSE 88; RESP 16; TEMP 98.5
[2017-02-18] MEDS: WARFARIN 5 MG TAB PO SCH (17:17)
[2017-02-19] MEDS ORDERED: PANTOPRAZOLE 40 MG TABLET PO SCH (07:30)
[2017-02-20] MEDS ORDERED: predniSONE 10 MG TAB PO SCH (09:00)
--- NOTE | 2017-03-01 01:01 | P.DS ---
Providers Date of admission: 02/17/17 13:59 Attending physician: Jamal Steele Consults: 02/17/17 11:09 Consult Physician Routine Consulting Provider: Tameka Emanuel Consult Reason/Comments: abdominal pain Do you want consulting provider notified?: Yes Primary care physician: Rebekah Hood Hospital Course: Final diagnoses: 1. Acute pancreatitis possibly secondary to EtOH abuse 2. Hypoalbuminemia with mild to moderate protein calorie malnutrition 3. Coumadin monitoring 4. Obesity, BMI 37.7 5. Proximal atrial fibrillation, chronic intermittent 6. Gastroesophageal reflux disease 7. Degenerative joint disease 8. History of right renal cancer, status post ablation earlier this year Hospital course this is a 66-year-old gentleman admitted with abdominal pain, features of acute pancreatitis and multiple other medical issues. Lipase 616 , T bili normal, mildly elevated alk phos .CT reported significant swelling of the uncinate process of the pancreas, as well as multiple other findings as well. Recently patient had a complex procedure regarding right renal cancer. Maintained on IV fluid hydration,CIWA protocol. Evaluated by GI, diet advanced. Significant clinical improvement. Patient cleared for discharge by GI. Patient is being discharged home in a stable condition with guarded prognosis. The impression and plan of care has been dictated as directed as a scribe. Dr.: I performed a H&P examination of this patient and discussed the same with the dictator. I agree with the dictator's note. Any additional findings/opinions/ etc. will be noted. Patient Condition at Discharge: Stable Plan - Discharge Summary New Discharge Prescriptions: New Hydrocodone/Acetaminophen [[place] 5-325] 1 each PO Q6HR PRN #20 tab PRN Reason: Pain Ondansetron Odt [Zofran ODT] 4 mg PO Q8HR PRN #10 tab PRN Reason: Nausea Folic Acid 1 mg PO DAILY@1200 #30 tab Thiamine [Vitamin B-1] 100 mg PO DAILY@1200 #30 tab Discontinued predniSONE See Taper PO DIRECTED No Action Allopurinol [Zyloprim] 300 mg PO DAILY Multivitamin [Men's Multi-Vitamin] 1 tab PO DAILY Cholecalciferol [Vitamin D3] 5,000 unit PO DAILY Calcium Carbonate/Vitamin D3 [Calcium 600-Vit D3 400 Caplet] 1 tab PO BID Acetaminophen Tab [Tylenol] 500 - 1,000 mg PO DAILY PRN PRN Reason: Pain Warfarin Sodium [Coumadin] 5 mg PO DAILY #0 Cyanocobalamin [Vitamin B-12] 1,000 mcg PO DAILY@1200 #60 tablet Discharge Medication List Allopurinol [Zyloprim] 300 mg PO DAILY 02/22/14 [History] Multivitamin [Men's Multi-Vitamin] 1 tab PO DAILY 03/22/14 [History] Cholecalciferol [Vitamin D3] 5,000 unit PO DAILY 07/26/14 [History] Calcium Carbonate/Vitamin D3 [Calcium 600-Vit D3 400 Caplet] 1 tab PO BID [History] Acetaminophen Tab [Tylenol] 500 - 1,000 mg PO DAILY PRN 06/20/16 [History] Warfarin Sodium [Coumadin] 5 mg PO DAILY #0 06/23/16 [Rx] Cyanocobalamin [Vitamin B-12] 1,000 mcg PO DAILY@1200 #60 tablet 12/23/16 [Rx] Hydrocodone/Acetaminophen [[place] 5-325] 1 each PO Q6HR PRN #20 tab 02/15/17 [Rx] Ondansetron Odt [Zofran ODT] 4 mg PO Q8HR PRN #10 tab 02/15/17 [Rx] Folic Acid 1 mg PO DAILY@1200 #30 tab 02/18/17 [Rx] Thiamine [Vitamin B-1] 100 mg PO DAILY@1200 #30 tab 02/18/17 [Rx] Follow up Appointment(s)/Referral(s): Tameka Emanuel MD [STAFF PHYSICIAN] - 2 Weeks Rebekah Hood DO [Primary Care Provider] - 3 Days Ambulatory/Diagnostic Orders: Prothrombin Time INR [LAB.AMB] Time Frame: 3 Days, Location: Determined By Patient Patient Instructions/Handouts: Pancreatitis (ED) Activity/Diet/Wound Care/Special Instructions: Diet: Low-fat Activity: Limited until follow up No alcohol Discharge Disposition: HOME SELF-CARE
== END 2017-02-18 19:41 | disposition home or self-care (01) | DRG 439 ==
LOC: EC 05:13 → 3SUR 08:30 → OBSVTOIN 02-17 13:59
PROVIDERS: ADMIT Hospitalist; ATTEND Hospitalist
DX: K85.90 Acute pancreatitis without necrosis or infection, unspecified (principal); E44.0 Moderate protein-calorie malnutrition; F10.231 Alcohol dependence with withdrawal delirium; I48.0 Paroxysmal atrial fibrillation; I48.2 Chronic atrial fibrillation; E86.1 Hypovolemia; I10 Essential (primary) hypertension; M10.9 Gout, unspecified; E66.9 Obesity, unspecified; G47.30 Sleep apnea, unspecified; K86.1 Other chronic pancreatitis; K21.9 Gastro-esophageal reflux disease without esophagitis; R79.1 Abnormal coagulation profile; T45.515A Adverse effect of anticoagulants, initial encounter; Z68.37 Body mass index [BMI] 37.0-37.9, adult; Z79.01 Long term (current) use of anticoagulants; Z82.49 Family history of ischemic heart disease and other diseases of the circulatory system; Z85.528 Personal history of other malignant neoplasm of kidney; Z86.711 Personal history of pulmonary embolism; Z87.891 Personal history of nicotine dependence; Z96.652 Presence of left artificial knee joint; Z98.84 Bariatric surgery status
CPT/HCPCS: 36415; 71010; 74020; 74176; 76705; 80053; 80061; 80306; 81001; 82150; 83690; 83735; 85025; 85610; 96361; 96375; 96376

== ENCOUNTER → 2017-04-07 | Outpatient (CLI) | payer MEDICARE, OTHER ==
[2017-04-07 12:51] LABS: Anion Gap 9 mmol/L; Blood Urea Nitrogen 10 mg/dL (9-20); Carbon Dioxide 25 mmol/L (22-30); Chloride 106 mmol/L (98-107); Non-African American GFR(MDRD) >60 (>60 ml/min/1.73 sqM); Potassium 4.7 mmol/L (3.5-5.1); Sodium 140 mmol/L (137-145)
== END | disposition home or self-care (01) ==
LOC: LABWHC1 12:07
PROVIDERS: ATTEND Nurse Practitioner Adult Health
DX: I49.3 Ventricular premature depolarization (principal)
CPT/HCPCS: 36415; 80051; 82565; 84520

== ENCOUNTER → 2017-04-27 | Outpatient (CLI) | payer MEDICARE, OTHER ==
[2017-04-27 15:33] LABS: Blood Urea Nitrogen 15 mg/dL (9-20); Non-African American GFR(MDRD) >60 (>60 ml/min/1.73 sqM)
--- NOTE | 2017-04-27 16:29 | CT ---
EXAMINATION TYPE: CT abdomen wo/w con DATE OF EXAM: 04/27/2017 COMPARISON: NONE HISTORY: Renal cell carcinoma. Right renal cryoablation 6 months ago, follow-up scan. CT DLP: 1964.00 mGycm Automated exposure control for dose reduction was used. TECHNIQUE: Helical acquisition of images was performed from the lung bases through the top of iliac crest to include entire abdomen. CONTRAST: Performed without Oral Contrast and without and with IV Contrast, patient injected with 100 mL of Omn ipaque 300. FINDINGS: Evaluation of the hollow and solid viscera are limited secondary lack of intravenous contra st. LUNG BASES: Chronic pleural parenchymal scarring is seen at the right lung base in association with o ld healed rib fracture deformities on the right.. LIVER/GB: No significant abnormality is appreciated of the hepatic parenchyma. Gallbladder is surgica lly absent. PANCREAS: Mild pancreatic atrophy with no ductal dilatation or focal aggressive lesion. SPLEEN: No significant abnormality is seen. ADRENALS: No significant abnormality is seen. KIDNEYS: Exophytically emanating from the right lower pole of the kidney there is an unchanged 2.0 x 1.5 cm low-density renal lesion with surrounding halo of fat necrosis related to the cryoablation. Nu merous left renal cysts are appreciated with the largest a renal sinus cyst containing a dependent ca lcification measuring 2.0 cm. Bilateral mild nonspecific perinephric fat stranding is unchanged from the prior examinations. BOWEL: Partial gastrectomy has been performed with numerous surgical clips in the upper abdomen in t he area of the gastrohepatic ligament. LYMPH NODES: No significant abnormality is seen. OSSEOUS STRUCTURES: Old healed posterior rib fractures are noted on the right. Degenerative changes are appreciated of the visualized lower lumbar spine. FREE AIR: No free air is visualized. OTHER: There is diastases recti and a ventral abdominal hernia containing loops of small bowel that a re incompletely images the extend off the [id number]. Mild calcific atheromatous changes are seen of the abdominal aorta. Abdominal aorta is of normal course and caliber. IMPRESSION: 1. STABLE EXOPHYTIC RIGHT LOWER POLE RENAL MASS, POST CRYOABLATION WITH SURROUNDING FAT NECROSIS. NO LOCAL ADENOPATHY OR ADENOPATHY WITHIN THE VISUALIZED ABDOMEN OR PELVIS. 2. NO EVIDENCE OF SUSPICIOUS OSSEOUS LESION OR GROSS EVIDENCE OF METASTATIC DISEASE GIVEN THE LIMITAT ION OF LACK OF INTRAVENOUS AND ORAL CONTRAST.
== END | disposition home or self-care (01) ==
LOC: RADCTMAIN 14:54
PROVIDERS: ATTEND Radiology Vascular & Interventional Radiology
DX: C64.1 Malignant neoplasm of right kidney, except renal pelvis (principal); N28.89 Other specified disorders of kidney and ureter
CPT/HCPCS: 82565; 84520; 74170; 36415; Q9967

== ENCOUNTER 2017-06-28 11:42 | Inpatient (IN) | payer MEDICARE, OTHER ==
[2017-06-28] MEDS ORDERED: SODIUM CHLORIDE 0.9% 1,000 ML IV STA (12:13)
[2017-06-28] MEDS ORDERED: VANCOMYCIN 1,900 MG in SODIUM CHLORIDE 0.9% 250 ML IVPB ONE (12:16)
[2017-06-28] MEDS ORDERED: IV VANCOMYCIN PER PHARMACY 1 EACH MISC MISCELLANE PRN (12:22)
[2017-06-28] MEDS ORDERED: VANCOMYCIN 2,000 MG in SODIUM CHLORIDE 0.9% 500 ML IVPB ONE (13:00)
--- NOTE | 2017-06-28 13:00 | CT ---
EXAMINATION TYPE: CT brain wo con DATE OF EXAM: 06/28/2017 COMPARISON: NONE HISTORY: fever, chills, diarrhea, chest pain, no head complaints CT DLP: 995.3 mGycm Automated exposure control for dose reduction was used. FINDINGS: There are mild, generalized changes of sulcal prominence and ventriculomegaly compatible with age-rel ated atrophy. There is diffuse periventricular white matter lucency, compatible with chronic white ma tter ischemic change. There is no acute focal lesion, mass effect or midline shift identified. I do n ot see evidence of intracranial blood. Visualized portions of the paranasal sinuses and mastoids are clear. IMPRESSION: 1. NO ACUTE INTRACRANIAL ABNORMALITY. 2. ATROPHIC CHANGE. 3. CHRONIC WHITE MATTER ISCHEMIC CHANGE.
[2017-06-28 13:01] LABS: Basophils % (A) 0 %; CH 32.5; CHCM 33.9; Eosinophils % (A) 0 %; HCT 40.7 % (39.0-53.0); HDW 2.29; HGB 13.4 gm/dL (13.0-17.5); Luc # (Auto) 0.05; Luc % (Auto) 1; Lymphocytes # (A) 0.2 k/uL (1.0-4.8); Lymphocytes % (A) 4 %; MCH 31.6 pg (25.0-35.0); MCHC 32.8 g/dL (31.0-37.0); MCV 96.3 fL (80.0-100.0); Mean Platelet Volume 7.9; Monocytes # (A) 0.3 k/uL (0-1.0); Monocytes % (A) 5 %; Neutrophils # (A) 4.8 k/uL (1.3-7.7); Neutrophils % (A) 89 %; RBC 4.23 m/uL (4.30-5.90); RDW 15.1 % (11.5-15.5); WBC 5.4 k/uL (3.8-10.6); WBC (Perox) 5.35
--- NOTE | 2017-06-28 13:09 | XR ---
EXAMINATION TYPE: XR chest 2V DATE OF EXAM: 06/28/2017 HISTORY: Chest Pain. REFERENCE: Previous study dated 02/16/2017. FINDINGS: The heart is enlarged. There is chronic scarring or atelectasis at the right lung base. Ple ural spaces are clear. IMPRESSION: 1. MILD CARDIOMEGALY. 2. SCARRING VERSUS ATELECTASIS, RIGHT LUNG BASE.
[2017-06-28 13:13] LABS: ALT 41 U/L (21-72); AST 45 U/L (17-59); Alkaline Phosphatase 184 U/L (38-126); Anion Gap 9 mmol/L; Blood Urea Nitrogen 14 mg/dL (9-20); Calcium 8.9 mg/dL (8.4-10.2); Carbon Dioxide 20 mmol/L (22-30); Chloride 109 mmol/L (98-107); Glucose 120 mg/dL (74-99); Magnesium 1.4 mg/dL (1.6-2.3); Non-African American GFR(MDRD) >60 (>60 ml/min/1.73 sqM); Potassium 4.6 mmol/L (3.5-5.1); Sodium 138 mmol/L (137-145); Total Bilirubin 0.6 mg/dL (0.2-1.3)
[2017-06-28 13:14] LABS: Partial Thromboplastin Time 29.7 sec (22.0-30.0); Prothrombin Time 28.9 sec (9.0-12.0)
[2017-06-28 13:25] LABS: Creatine Kinase 36 U/L (55-170)
[2017-06-28] MEDS ORDERED: SODIUM CHLORIDE 0.9% 1,000 ML IV ONE (13:27)
[2017-06-28 13:39] LABS: Creatine Kinase MB 0.5 ng/mL (0.0-2.4); Troponin I <0.012 ng/mL (0.000-0.034)
[2017-06-28] MEDS: cefTRIAXone 2,000 MG in SODIUM CHLORIDE 0.9% 100 ML IVPB STA ×2 (13:59→14:02)
--- NOTE | 2017-06-28 15:08 | ED ---
General Adult HPI - General Chief complaint: Chest Pain Stated complaint: chills, diarrhea; chest tightness Time Seen by Provider: 06/28/17 12:06 Source: patient Mode of arrival: wheelchair Limitations: no limitations - History of Present Illness Initial comments: 67 years old male fell 5 fever chills or shakes also had a chest tightness and no chest pain as such. [place] quite weak had some sweats as well denies any cough no phlegm no abdominal pain no frequency urgency dysuria no sinus symptoms of TIA or CVA - Related Data Home Medications Medication Instructions Recorded Confirmed Allopurinol [Zyloprim] 300 mg PO DAILY 02/22/14 06/28/17 Multivitamin [Men's Multi-Vitamin] 1 tab PO DAILY 03/22/14 06/28/17 Cholecalciferol [Vitamin D3] 5,000 unit PO DAILY 07/26/14 06/28/17 Calcium Carbonate/Vitamin D3 1 tab PO BID 05/07/16 06/28/17 [Calcium 600-Vit D3 400 Caplet] Acetaminophen Tab [Tylenol] 500 - 1,000 mg PO DAILY PRN 06/20/16 06/28/17 Metoprolol Tartrate [Lopressor] 25 mg PO BID 06/28/17 06/28/17 Warfarin Sodium [Coumadin] 5 mg PO W/SUPPER 06/28/17 06/28/17 Previous Rx's Medication Instructions Recorded Cyanocobalamin [Vitamin B-12] 1,000 mcg PO DAILY@1200 #60 tablet 12/23/16 Allergies Allergy/AdvReac Type Severity Reaction Status Date / Time No Known Allergies Allergy Verified 06/28/17 13:57 Review of Systems ROS Statement: Those systems with pertinent positive or pertinent negative responses have been documented in the HPI. ROS Other: All systems not noted in ROS Statement are negative. Past Medical History Past Medical History: Atrial Fibrillation, Blood Disorder, Osteoarthritis (OA), Pulmonary Embolus (PE) Additional Past Medical History / Comment(s): PANCREATITIS. DIVERTICULITIS. Gout. Past hx. A-fib. Cyst on kidney. Hx. of a pneumothorax after a past surg. History of Any Multi-Drug Resistant Organisms: None Reported Past Surgical History: Bariatric Surgery, Bowel Resection, Cholecystectomy, Hernia Repair, Joint Replacement Additional Past Surgical History / Comment(s): COLONOSOCPY , 8-19-16 LAP EMA/LYSIS OF ADHESIONS,Bowel resection w/colostomy, then had reversed. Left knee replacement. Paraesophageol hiatal hernia repair. Lysis of adhesions. Excision of mediastinal mass. Gastric sleeve converted to darrell en y- aug 21, 2014. Past Anesthesia/Blood Transfusion Reactions: No Reported Reaction Past Psychological History: No Psychological Hx Reported Smoking Status: Former smoker Past Alcohol Use History: Occasional Past Drug Use History: None Reported - Past Family History Father Family Medical History: Myocardial Infarction ([place]) Additional Family Medical History / Comment(s): from [place], emphysema Mother Family Medical History: Cancer Additional Family Medical History / Comment(s): ovarian Sister(s) Family Medical History: Cancer Additional Family Medical History / Comment(s): breast, has heart problems- defibrillator General Exam - General Exam Comments Initial Comments: General: The patient is awake and alert, he looks pale and weak Skin: Skin is warm and dry and no rashes or lesions are noted. Eye: Pupils are equal, round and reactive to light, extra-ocular movements are intact; there is normal conjunctiva bilaterally. Ears, nose, mouth and throat: There are moist mucous membranes and no oral lesions. Neck: The neck is supple, there is no tenderness or JVD. Cardiovascular: There is a regular rate and rhythm. No murmur, rub or gallop is appreciated. Respiratory: To auscultation bilateral, no wheezing no rhonchi no distress respiratory hill noticed Gastrointestinal: Soft, non-distended, non-tender abdomen without masses or organomegaly noted. There is no rebound or guarding present. Bowel sounds are unremarkable. Back: There is no tenderness to palpation in the midline. There is no obvious deformity. Musculoskeletal: Normal ROM, no tenderness, There is no pedal edema. There is no calf tenderness or swelling. No cords were appreciated. Neurological: CN II-XII intact, Cranial nerves III through XII are intact. There are no obvious motor or sensory deficits. Coordination appears grossly intact. Speech is normal. Psychiatric: Cooperative, appropriate mood & affect, normal judgment. Limitations: no limitations Course Vital Signs 06/28/17 06/28/17 06/28/17 11:48 13:35 14:05 Temperature 102.2 F H 102.5 F H 101.6 F H Pulse Rate 117 H 96 92 Respiratory 20 18 20 Rate Blood Pressure 164/84 126/70 152/77 O2 Sat by Pulse 95 98 97 Oximetry Review of labs reveal CBC is normal INR is 3.0 d-dimer is negative troponin is negative EKG is unremarkable as well chest x-ray is still pending head CT is normal and lactate is 2.1, had a discussion with the patient he was doing some antibiotics she still feels "drained considering that I think we need to keep him in the hospital culture reports come back area and urinalysis is still pending, will keep her on broad-spectrum antibiotic pill blood and urine culture comes back EKG Findings - EKG Comments: EKG Findings:: EKG is a sinus tachycardia ventricular rate is 110 MO interval is 164 QRS duration is 74 QT/QTc ratio 6/414. This EKG does not reveal any ST elevation noticed some T-wave inversion and no inguinal V3 V4 V5 and V6 as well as noticed some T-wave flattening Medical Decision Making - Lab Data Result diagrams: 06/28/17 12:22 06/28/17 12:22 Lab Results 06/28/17 06/28/17 06/28/17 Range/Units 12:22 12:22 12:22 WBC (3.8-10.6) k/uL RBC (4.30-5.90) m/uL Hgb (13.0-17.5) gm/dL Hct (39.0-53.0) % MCV (80.0-100.0) fL MCH (25.0-35.0) pg MCHC (31.0-37.0) g/dL RDW (11.5-15.5) % Plt Count (150-450) k/uL Neutrophils % % Lymphocytes % % Monocytes % % Eosinophils % % Basophils % % Neutrophils # (1.3-7.7) k/uL Lymphocytes # (1.0-4.8) k/uL Monocytes # (0-1.0) k/uL Eosinophils # (0-0.7) k/uL Basophils # (0-0.2) k/uL PT 28.9 H (9.0-12.0) sec INR 3.0 H (<1.2) APTT 29.7 (22.0-30.0) sec D-Dimer 0.24 (<0.60) mg/L FEU Sodium (137-145) mmol/L Potassium (3.5-5.1) mmol/L Chloride (98-107) mmol/L Carbon Dioxide (22-30) mmol/L Anion Gap mmol/L BUN (9-20) mg/dL Creatinine (0.66-1.25) mg/dL Est GFR (MDRD) Af Amer (>60 ml/min/1.73 sqM) Est GFR (MDRD) Non-Af (>60 ml/min/1.73 sqM) Glucose (74-99) mg/dL Plasma Lactic Acid Sung 2.1 H* (0.7-2.0) mmol/L Calcium (8.4-10.2) mg/dL Magnesium (1.6-2.3) mg/dL Total Bilirubin (0.2-1.3) mg/dL AST (17-59) U/L ALT (21-72) U/L Alkaline Phosphatase (38-126) U/L Total Creatine Kinase 36 L (55-170) U/L CK-MB (CK-2) 0.5 (0.0-2.4) ng/mL CK-MB (CK-2) Rel Index 1.4 Troponin I <0.012 (0.000-0.034) ng/mL Total Protein (6.3-8.2) g/dL Albumin (3.5-5.0) g/dL 06/28/17 06/28/17 Range/Units 12:22 12:22 WBC 5.4 (3.8-10.6) k/uL RBC 4.23 L (4.30-5.90) m/uL Hgb 13.4 (13.0-17.5) gm/dL Hct 40.7 (39.0-53.0) % MCV 96.3 (80.0-100.0) fL MCH 31.6 (25.0-35.0) pg MCHC 32.8 (31.0-37.0) g/dL RDW 15.1 (11.5-15.5) % Plt Count 203 (150-450) k/uL Neutrophils % 89 % Lymphocytes % 4 % Monocytes % 5 % Eosinophils % 0 % Basophils % 0 % Neutrophils # 4.8 (1.3-7.7) k/uL Lymphocytes # 0.2 L (1.0-4.8) k/uL Monocytes # 0.3 (0-1.0) k/uL Eosinophils # 0.0 (0-0.7) k/uL Basophils # 0.0 (0-0.2) k/uL PT (9.0-12.0) sec INR (<1.2) APTT (22.0-30.0) sec D-Dimer (<0.60) mg/L FEU Sodium 138 (137-145) mmol/L Potassium 4.6 (3.5-5.1) mmol/L Chloride 109 H (98-107) mmol/L Carbon Dioxide 20 L (22-30) mmol/L Anion Gap 9 mmol/L BUN 14 (9-20) mg/dL Creatinine 0.90 (0.66-1.25) mg/dL Est GFR (MDRD) Af Amer >60 (>60 ml/min/1.73 sqM) Est GFR (MDRD) Non-Af >60 (>60 ml/min/1.73 sqM) Glucose 120 H (74-99) mg/dL Plasma Lactic Acid Sung (0.7-2.0) mmol/L Calcium 8.9 (8.4-10.2) mg/dL Magnesium 1.4 L (1.6-2.3) mg/dL Total Bilirubin 0.6 (0.2-1.3) mg/dL AST 45 (17-59) U/L ALT 41 (21-72) U/L Alkaline Phosphatase 184 H (38-126) U/L Total Creatine Kinase (55-170) U/L CK-MB (CK-2) (0.0-2.4) ng/mL CK-MB (CK-2) Rel Index Troponin I (0.000-0.034) ng/mL Total Protein 6.0 L (6.3-8.2) g/dL Albumin 3.0 L (3.5-5.0) g/dL Disposition Clinical Impression: Fever, Sepsis Disposition: ADMITTED IP TO THIS HOSP Condition: Good Referrals: Rebekah Hood DO [Primary Care Provider] - 1-2 days
[2017-06-28] MEDS ORDERED: ONDANSETRON 4 MG/2 ML VIAL IVP PRN (15:14)
[2017-06-28] MEDS ORDERED: ACETAMINOPHEN TAB 325 MG TAB PO PRN (15:14)
[2017-06-28] MEDS ORDERED: MORPHINE SULFATE 4 MG/ML SYRINGE IV PRN (15:14)
[2017-06-28] MEDS ORDERED: NALOXONE 0.4 MG/ML 1 ML VIAL IV PRN (15:14)
[2017-06-28 15:24] LABS: Appearance,Urine Clear (Clear); Bilirubin,Urine Negative (Negative); Glucose,Urine (UA) Negative (Negative); Granular Casts,Urine 1 /lpf (0); Ketones,Urine Negative (Negative); Leukocyte Esterase,Urine Negative (Negative); Mucus,Urine Rare /hpf; Nitrite,Urine Negative (Negative); PH, Urine 5.5 (5.0-8.0); Particle Count 2539; Protein,Urine 1+ (Negative); RBC,Urine <1 /hpf (0-5); Specific Gravity,Urine 1.017 (1.001-1.035); UA Billing (MACRO vs. MICRO) MICRO; Urobilinogen,Urine <2.0 mg/dL (<2.0)
[2017-06-28] MEDS ORDERED: ACETAMINOPHEN TAB 325 MG TAB PO ONE (16:03)
[2017-06-28] MEDS ORDERED: MORPHINE SULFATE 2 MG/ML SYRINGE IV PRN (16:30)
[2017-06-28 16:40] LABS: INR 2.6 (<1.2); Prothrombin Time 25.4 sec (9.0-12.0)
[2017-06-28] MEDS ORDERED: LORazepam 2 MG/ML INJ IV PRN ×3 (16:44)
[2017-06-28] MEDS ORDERED: THIAMINE 100 MG/ML 2 ML VIAL IM STA (16:44)
[2017-06-28] MEDS ORDERED: Magnesium Replacement Protocol 1 EACH MISC MISCELLANE PRN (17:00)
[2017-06-28] MEDS ORDERED: cloNIDine HCL 0.1 MG TAB PO PRN (17:30)
[2017-06-28] MEDS ORDERED: HYDROmorphone 0.5 MG/0.5 ML SYRINGE IVP PRN (17:30)
[2017-06-28] MEDS ORDERED: WARFARIN 5 MG TAB PO SCH (17:30)
[2017-06-28] MEDS: THIAMINE 100 MG TAB PO SCH (18:03)
[2017-06-28] MEDS: PIPERACILLIN-TAZOBACTAM 3.375 GM in DEXTROSE/WATER 1 50ML.BAG IVPB SCH ×2 (18:22→23:47)
[2017-06-28 18:58] VITALS: BMI 39.0
[2017-06-28] MEDS: HYDROcodone/APAP 5-325MG 1 EACH TAB PO PRN (20:20)
[2017-06-28] MEDS: METOPROLOL TARTRATE 25 MG TAB PO SCH (20:21)
[2017-06-28] MEDS: MAGNESIUM SULFATE-D5W PMX 1 GM in DEXTROSE/WATER 1 100ML.BAG IVPB SCH ×3 (20:22→23:46)
--- NOTE | 2017-06-28 21:38 | HP ---
HISTORY AND PHYSICAL DATE OF ADMISSION: 06/28/17 CHIEF COMPLAINTS: Fever and diffuse diarrhea, nausea. HISTORY OF PRESENT ILLNESS: This 67-year-old gentleman with a past medical history of multiple medical problems including atrial fibrillation, history of DJD, history of pulmonary embolism, history of pancreatitis, history of bariatric surgery being followed by Dr. Hood in the outpatient setting was recently admitted with acute pancreatitis secondary to ETOH abuse. Patient improved significantly. Patient discharged and currently the patient is complaining of shaking and chills and some chest tightness, vomiting, diarrhea, because of tiredness the patient came to [facility] and was admitted to the hospital further recommendations to follow. Patient also had fevers, rigors and chills. No history of chest pain, palpitations, hematochezia or melena at this time. PAST MEDICAL HISTORY: Atrial fibrillation, history of DJD, pulmonary embolism, pancreatitis, bariatric surgery. MEDICATIONS: Prior to admission include home medications are: 1. Coumadin 5 mg with supper. 2. Multivitamins one p.o. daily. 3. Lopressor 25 mg daily. 4. Vitamin B12 1000 mg p.o. daily. 5. Vitamin D3, 5000 daily. 6. Calcium with vitamin D 1 p.o. b.i.d. 7. Zyloprim 300 mg. 8. Tylenol 500 to 1000 mg daily p.r.n. ALLERGIES: None. FAMILY HISTORY: History of cancer and ovarian cancer in the family. SOCIAL HISTORY: History of alcohol, previous history of smoking. REVIEW OF SYSTEMS: ENT: No diminished vision, no diminished hearing. Cardiovascular: No angina, palpitations. Respiratory: As mentioned earlier. GI no nausea or vomiting. : No dysuria. Nervous system: No numbness, weakness. Allergy/Immunology: No asthma or hayfever. Hematology/Oncology: No history of anemia. Endocrine: No history of diabetes, hypothyroidism. CONSTITUTIONAL: As mentioned earlier. Dermatology negative. Rheumatology As mentioned earlier. Psychiatric: As mentioned earlier. PHYSICAL EXAMINATION: The patient is alert and oriented times three. Pulse 92, blood pressure 130/77, respiratory 22, temperature 101.6, pulse ox 97% on 2 L. HEENT: Conjunctivae normal. Oral mucosa moist. Neck is no jugular venous distention. No carotid bruit. No lymph node enlargement. Cardiovascular system: S1, S2 muffled. No S3, no S4. Respiratory: Breath sounds diminished in the bases. Bilateral scattered rhonchi and crackles. ABDOMEN: Soft, obese, nontender. No mass palpable. Legs no edema, no swelling. NERVOUS SYSTEM: Higher functions as mentioned earlier. Moves all four limbs. No focal deficits. Lymphatics: No lymph nodes palpable in the neck, axillae or groin. Skin no ulcer, rashes or bruises. LAB STUDIES: WBC 5.2, hemoglobin 13.4, INR is 3 and 2.6. Otherwise plasma lactic acid 2.1, magnesium 1.4. ASSESSMENT: 1. Acute sepsis secondary to possibly right lower lobe pneumonia. 2. ETOH and ETOH withdrawal. 3. Increased plasma lactic acid. 4. History of atrial fibrillation. 5. History of degenerative joint disease. 6. History of pulmonary embolism. 7. History of pancreatitis. 8. History of bariatric surgery. 9. History of right renal cancer. RECOMMENDATIONS AND DISCUSSION: In this 67-year-old gentleman who presented with multiple complex medical issues, we will monitor the patient closely. Continue the current medications, continue symptomatic treatment, we will initiate broad-spectrum IV antibiotics. The patient was started on Zosyn. Follow the cultures. We will get infectious disease evaluation. Cardiology evaluation. Otherwise I would also recommend monitor PT/INR closely. I would also recommend continue with current medications. Magnesium supplementation. IV fluids cautiously. Lactic acid palpitation. CIWA protocol. Alcohol cessation advice was also given. Overall prognosis guarded because of multiple complex medical issues. The patient understands and agrees. Further recommendations to follow. See orders for further details. We will also check PT/INR also on regular basis. MMODL / IJN: [id number] /
[2017-06-28] MEDS: TEMAZEPAM 15 MG CAP PO PRN (23:45)
[2017-06-29] MEDS: PIPERACILLIN-TAZOBACTAM 3.375 GM in DEXTROSE/WATER 1 50ML.BAG IVPB SCH ×3 (00:03→17:31)
[2017-06-29] MEDS: VANCOMYCIN 2,000 MG in SODIUM CHLORIDE 0.9% 500 ML IVPB SCH ×2 (00:57→13:35)
[2017-06-29] MEDS: HYDROcodone/APAP 5-325MG 1 EACH TAB PO PRN ×4 (03:30→21:43)
[2017-06-29] MEDS ORDERED: PANTOPRAZOLE 40 MG/10 ML VIAL IVP SCH (09:00)
[2017-06-29] MEDS: ALLOPURINOL 300 MG TAB PO SCH (09:19)
[2017-06-29] MEDS: METOPROLOL TARTRATE 25 MG TAB PO SCH ×2 (09:19→21:43)
[2017-06-29 09:30] LABS: Basophils % (A) 1 %; CHCM 31.1; Eosinophils # (A) 0.1 k/uL (0-0.7); Eosinophils % (A) 1 %; HCT 37.4 % (39.0-53.0); HDW 2.22; HGB 11.9 gm/dL (13.0-17.5); Hypochromasia Slight; Luc # (Auto) 0.12; Luc % (Auto) 3; Lymphocytes # (A) 0.5 k/uL (1.0-4.8); Lymphocytes % (A) 15 %; MCHC 31.9 g/dL (31.0-37.0); MCV 100.1 fL (80.0-100.0); Macrocytosis Slight; Mean Platelet Volume 7.4; Monocytes # (A) 0.2 k/uL (0-1.0); Monocytes % (A) 7 %; Neutrophils # (A) 2.4 k/uL (1.3-7.7); Neutrophils % (A) 72 %; RBC 3.73 m/uL (4.30-5.90); RDW 14.2 % (11.5-15.5); WBC 3.4 k/uL (3.8-10.6); WBC (Perox) 3.44
[2017-06-29 09:36] LABS: INR 2.1 (<1.2); Prothrombin Time 20.6 sec (9.0-12.0)
[2017-06-29 09:46] LABS: Anion Gap 9 mmol/L; Blood Urea Nitrogen 11 mg/dL (9-20); Calcium 8.1 mg/dL (8.4-10.2); Carbon Dioxide 20 mmol/L (22-30); Chloride 110 mmol/L (98-107); Glucose 91 mg/dL (74-99); Non-African American GFR(MDRD) >60 (>60 ml/min/1.73 sqM); Potassium 3.7 mmol/L (3.5-5.1); Sodium 139 mmol/L (137-145)
[2017-06-29] MEDS ORDERED: RX INFO: IV CONTRAST WAS GIVEN 1 EACH MISC MISCELLANE PRN (10:56)
--- NOTE | 2017-06-29 10:57 | ECHOF ---
Referral Reason:chest pain MEASUREMENTS -------- HEIGHT: 182.9 cm WEIGHT: 127.0 kg BP: 128/78 IVSd: 1.6 cm (0.6 - 1.1) LVIDd: 3.7 cm (3.9 - 5.3) LVPWd: 1.6 cm (0.6 - 1.1) IVSs: 1.8 cm LVIDs: 2.5 cm LVPWs: 2.1 cm Ao Diam: 3.8 cm (2.0 - 3.7) AV Cusp: 1.8 cm (1.5 - 2.6) LA Diam: 3.9 cm (2.7 - 3.8) MV EXCURSION: 24.208 mm (> 18.000) MV EF SLOPE: 213 mm/s (70 - 150) EPSS: 1.1 cm MV E Bucky: 0.85 m/s MV DecT: 165 ms MV A Bucky: 0.67 m/s MV E/A Ratio: 1.27 RAP: 5.00 mmHg RVSP: 13.89 mmHg FINDINGS -------- Sinus rhythm. This was a technically adequate study. The left ventricular size is normal. There is moderate concentric left ventricular hypertrophy. Overall left ventricular systolic function is normal with, an EF between 55 - 60 %. The right ventricle is normal in size and function. The left atrium is normal in size. The right atrium is normal in size. The aortic valve is trileaflet, and appears structurally normal. No aortic stenosis or regurgitation. The mitral valve leaflets are mildly thickened. There is trace mitral regurgitation. Trace tricuspid regurgitation present. The right ventricular systolic pressure, as measured by Doppler, is 13.89mmHg. Pulmonic valve appears structurally normal. The aortic root is mildy dilated. The pericardium is normal. CONCLUSIONS -------- 1. Sinus rhythm. 2. The mitral valve leaflets are mildly thickened. 3. There is trace mitral regurgitation. 4. Trace tricuspid regurgitation present. 5. The right ventricular systolic pressure, as measured by Doppler, is 13.89mmHg. 6. Pulmonic valve appears structurally normal. 7. The aortic root is mildy dilated. 8. The pericardium is normal. 9. This was a technically adequate study. 10. The left ventricular size is normal. 11. There is moderate concentric left ventricular hypertrophy. 12. Overall left ventricular systolic function is normal with, an EF between 55 - 60 %. 13. The right ventricle is normal in size and function. 14. The left atrium is normal in size. 15. The right atrium is normal in size. 16. The aortic valve is trileaflet, and appears structurally normal. No aortic stenosis or regurgitation. [employer] OFFICER: Rosalia Amaya RDCS
[2017-06-29] MEDS: IOHEXOL 350 MG/ML 25 ML BOTTLE (ORAL USE) PO PRN ×2 (11:20→12:30)
[2017-06-29] MEDS: THIAMINE 100 MG TAB PO SCH ×2 (11:22→16:06)
[2017-06-29] MEDS: FOLIC ACID 1 MG TAB PO SCH (11:22)
--- NOTE | 2017-06-29 11:38 | CONS ---
CONSULTATION DATE OF SERVICE: 06/28/2017 REASON FOR CONSULTATION: A fever and possible pneumonia. HISTORY OF PRESENT ILLNESS: The patient is a 67-year-old male who was recently admitted to this facility where the patient was treated for pancreatitis. He presented to the [facility] ER in the afternoon with chief complaints of fever and chills and some chest tightness. The patient denies any cough. The patient did have some mild cough which is dry in nature. Patient denies having any URI symptoms. Did have some mild headache 3 to4/10 and no radiation. No photophobia. No nausea, no vomiting. No significant abdominal pain or diarrhea and no burning or frequency of urine. Patient subsequently evaluated by the ER physician. The patient did have a chest x-ray that was reported for possible scarring with atelectasis at the right lung base. Patient's CT of the brain was negative for any bleed. The patient did have a fever of 102.2 to 102.5 on presentation. His white count was normal. UA has been negative. The patient did get the diagnosis of possible pneumonia. He was started on broad-spectrum antibiotic in the hospital. ID was consulted for further recommendation regarding antibiotic therapy. REVIEW OF SYSTEMS: CONSTITUTIONAL: Positive for weakness and a fever. EYES: No complaint. ENT: No complaint. RESPIRATORY: As per HPI. CARDIOVASCULAR: No complaint. GENITOURINARY: No complaint. GASTROINTESTINAL: As per HPI. MUSCULOSKELETAL: No complaint. INTEGUMENTARY: No complaint. PSYCHOLOGICAL: No complaint. ENDOCRINE: No complaint. NEUROLOGIC: No complaint. PAST MEDICAL HISTORY: Significant for a atrial fibrillation, osteoarthritis, pulmonary embolism, pancreatitis, diverticulitis, gout, atrial fibrillation and cyst on the kidney, pneumothorax. PAST SURGICAL HISTORY: Bowel resection, cholecystectomy, hernia repair, colonoscopy, and left cholecystectomy, left knee replacement, repair of esophageal hernia, hiatal hernia repair. SOCIAL HISTORY: Positive smoking. No drinking or any drug use. FAMILY HISTORY: Father history of [place], from [place] and emphysema. Mother history of ovarian cancer. ALLERGIES: No known drug allergies. MEDICATIONS: The patient is currently on Tylenol, Mckinnon, Zyloprim, Eliquis, Catapres, folic acid, Dilaudid, Ativan, Lopressor, Narcan, Zofran, Protonix, piperacillin tazobactam, Restoril and vancomycin, pharmacy to dose. PHYSICAL EXAMINATION: Blood pressure is 128/72 with a pulse of 70, temperature 97, he is 95% on room air. General description is an elderly male, lying in bed in no distress. No tachypnea or accessory muscle of respiration use. HEENT EXAMINATION: Shows slight pallor. No scleral icterus. Oral mucosa is dry. NECK: Trachea central, no thyromegaly. LUNGS: Unlabored breathing. Some decreased breath sounds at the bases. No wheeze or crackle, heart S1, S2. Regular rhythm. ABDOMEN: Soft, no tenderness, no guarding or rigidity. EXTREMITIES: Some swelling. No significant redness. No warmth to touch. No skin breakdown. NEUROLOGICAL: Patient is awake, alert, oriented x3. Mood and affect normal. LABS: Hemoglobin is 13.4, white count of 5.4, BUN of 14, creatinine 0.90. Electrolytes have been normal. Liver enzymes are normal. Lactic acid was 2.1. Urine is negative. Chest report as mentioned above. DIAGNOSTIC IMPRESSION AND PLAN: Patient admitted to the hospital with a fever with chills and a question of possible right lower lobe pneumonia. The patient was recently admitted to the hospital and treated for pancreatitis, although the patient denies having significant abdominal pain, underlying abdominal pathology cannot be entirely excluded as the patient respiratory symptoms are not very predominant and there was only mild atelectasis noted at the right lung base. No other clinical focus of infection, no evidence of any cellulitis and UA was negative. PLAN: 1. We will obtain a CT abdomen and pelvis with contrast that should define any intraabdominal pathology and also evaluate the right lung base. 2. We will keep the patient on vancomycin and pharmacy to dose and Zosyn while watching his kidney function closely. 3. We will follow up on his clinical condition as well as cultures to further adjust the medication if needed. Thank you for this consultation. Will follow this patient along with you. MMODL / IJN: [id number] /
--- NOTE | 2017-06-29 13:00 | P.CRDCN ---
History of Present Illness Consult date: 06/29/17 History of present illness: This is a 67-year-old male. Past medical history significant for paroxysmal atrial fibrillation on mcfp anticoagulation and hypertension. His also a daily ETOH abuser. He follows with Dr. Mcadams in the office. We have been asked to see this gentlemen in consultation for complaints of chest tightness and shortness of breath. He states it started yesterday morning while he was resting in bed. It is across the anterior aspect of this chest and is described as tight across his from axilla to axilla. He also had associated shortness of breath with exertion which he states to be typical for him from time to time. This feeling was intermittent in nature all day yesterday. He is also being treated for pneumonia. He last saw Dr. Mcadams in February and there was some discussion about switching to NOAC due to variable INR. Last echocardiogram performed in the office reveals mildly dilated left ventricle with normal systolic function EF 60% with mild hypertorphy. Filling pattern suggestive of diastolic dysfunction. Cardiac medications include warfarin 5 mg daily and metoprolol tartrate 25 mg daily. Cardiac enzymes negative x2, BUN 11, Cr 1.18, potassium 3.7, magnesium 2.0, hgb 11.9, INR 2.1. Blood pressure 123/82 heart rate 98. EKG reveals sinus tachycardia with nonspecific ST and T wave abnormalities. Chest xray reveals mild cardiomegaly with scarring vs atelectasis in right lung base. Review of Systems CONSTITUTIONAL: Complain of intermittent fever/chills. EYES: Denies blurred vision. Denies vision changes. Denies eye pain. EARS, NOSE, MOUTH & THROAT: Denies headache. Denies sore throat. Denies ear pain. CARDIOVASCULAR: Complains of intermittent chest pain and exertional dyspnes. Denies orthopnea. Denies PND. Denies palpitations. RESPIRATORY: Denies cough. GASTROINTESTINAL: Denies abdominal pain. Denies diarrhea. Denies constipation. Denies nausea. Denies vomitng. MUSCULOSKELETAL: Denies myalgias. INTEGUMENTARY: Denies pruitis. Denies rash. NEUROLOGIC: Denies numbness. Denies tingling. Denies weakness. PSYCHIATRIC: Denies anxiety. Denies depression. ENDOCRINE: Denies fatigue. Denies weight change. Denies polydipsia. Denies polyurina. GENITOURINARY: Denies burning, hematuria or urgency with micturation. HEMATOLOGIC: Denies history of anemia. Denies bleeding. Past Medical History Past Medical History: Atrial Fibrillation, Blood Disorder, Osteoarthritis (OA), Pulmonary Embolus (PE) Additional Past Medical History / Comment(s): PANCREATITIS. DIVERTICULITIS. Gout. Past hx. A-fib. Cyst on kidney. Hx. of a pneumothorax after a past surg. History of Any Multi-Drug Resistant Organisms: None Reported Past Surgical History: Bariatric Surgery, Bowel Resection, Cholecystectomy, Hernia Repair, Joint Replacement Additional Past Surgical History / Comment(s): COLONOSOCPY , 05-09-16 LAP EMA/LYSIS OF ADHESIONS,Bowel resection w/colostomy, then had reversed. Left knee replacement. Paraesophageol hiatal hernia repair. Lysis of adhesions. Excision of mediastinal mass. Gastric sleeve converted to darrell en y- aug 21, 2014. Past Anesthesia/Blood Transfusion Reactions: No Reported Reaction Past Psychological History: No Psychological Hx Reported Smoking Status: Former smoker Past Alcohol Use History: Occasional Additional Past Alcohol Use History / Comment(s): SMOKING: FOR 19 YRS, STOPPED, 1987. ETOH: HISTORY OF ABUSE- ADMITS TO DRINKING 2-3 MIXED DRINKS PER DAY Past Drug Use History: None Reported - Past Family History Father Family Medical History: Myocardial Infarction (MD) Additional Family Medical History / Comment(s): from [place], emphysema Mother Family Medical History: Cancer Additional Family Medical History / Comment(s): ovarian Sister(s) Family Medical History: Cancer Additional Family Medical History / Comment(s): breast, has heart problems- defibrillator Medications and Allergies Home Medications Medication Instructions Recorded Confirmed Type Allopurinol [Zyloprim] 300 mg PO DAILY 02/22/14 06/28/17 History Multivitamin [Men's Multi-Vitamin] 1 tab PO DAILY 03/22/14 06/28/17 History Cholecalciferol [Vitamin D3] 5,000 unit PO DAILY 07/26/14 06/28/17 History Calcium Carbonate/Vitamin D3 1 tab PO BID 05/07/16 06/28/17 History [Calcium 600-Vit D3 400 Caplet] Acetaminophen Tab [Tylenol] 500 - 1,000 mg PO DAILY PRN 06/20/16 06/28/17 History Cyanocobalamin [Vitamin B-12] 1,000 mcg PO DAILY@1200 #60 tablet 12/23/16 Rx Metoprolol Tartrate [Lopressor] 25 mg PO BID 06/28/17 06/28/17 History Warfarin Sodium [Coumadin] 5 mg PO W/SUPPER 06/28/17 06/28/17 History Apixaban [Eliquis] 5 mg PO BID #60 tab 06/29/17 Rx Allergies Allergy/AdvReac Type Severity Reaction Status Date / Time No Known Allergies Allergy Verified 06/28/17 13:57 Physical Exam Vitals: Vital Signs Temp Pulse Pulse Resp BP BP Pulse Ox 06/29/17 07:00 97.0 F L 70 18 128/78 95 06/29/17 00:00 99.6 F 06/28/17 23:00 100.8 F H 86 20 147/74 96 06/28/17 20:14 88 147/81 06/28/17 16:45 20 06/28/17 16:28 99.8 F H 100 20 138/78 95 06/28/17 16:00 102.2 F H 90 20 133/65 95 06/28/17 14:05 101.6 F H 92 20 152/77 97 06/28/17 13:35 102.5 F H 96 18 126/70 98 06/28/17 11:48 102.2 F H 117 H 20 164/84 95 Intake and Output 06/28/17 06/29/17 06/29/17 22:59 06:59 14:59 Intake Total 440 600 Balance 440 600 Intake: Oral 440 600 Other: # Voids 1 1 Weight 127.006 kg GENERAL: This is a 67-year-old male in no apparent distress at the time of my examination. Obese. HEENT: Head is atraumatic, normocephalic. Pupils are equal, round. Sclerae anicteric. Conjunctivae are clear. Mucous membranes of the mouth are moist. Neck is supple. There is no jugular venous distention. No carotid bruit is heard. LUNGS: Clear to auscultation no wheezes, rales or rhonchi. No chest wall tenderness is noted on palpation or with deep breathing. HEART: Regular rate and rhythm without murmurs, rubs or gallops. S1 and S2 heard. ABDOMEN: Soft, nontender. Bowel sounds are heard. No organomegaly noted. EXTREMITIES: 2+ peripheral pulses with 1+ pitting peripheral edema b/l and no calf tenderness noted. NEUROLOGIC: Patient is awake, alert and oriented x3. Results 06/30/17 07:59 06/30/17 07:59 Cardiac Enzymes 06/28/17 06/28/17 06/28/17 Range/Units 12:22 12:22 17:51 AST 45 (17-59) U/L CK-MB (CK-2) 0.5 (0.0-2.4) ng/mL Troponin I <0.012 <0.012 (0.000-0.034) ng/mL Coagulation 06/28/17 06/28/17 06/29/17 Range/Units 12:22 16:15 08:54 PT 28.9 H 25.4 H 20.6 H (9.0-12.0) sec APTT 29.7 (22.0-30.0) sec CBC 06/28/17 06/29/17 Range/Units 12:22 08:54 WBC 5.4 3.4 L (3.8-10.6) k/uL RBC 4.23 L 3.73 L (4.30-5.90) m/uL Hgb 13.4 11.9 L (13.0-17.5) gm/dL Hct 40.7 37.4 L (39.0-53.0) % Plt Count 203 170 (150-450) k/uL Comprehensive Metabolic Panel 06/28/17 Range/Units 12:22 Sodium 138 (137-145) mmol/L Potassium 4.6 (3.5-5.1) mmol/L Chloride 109 H (98-107) mmol/L Carbon Dioxide 20 L (22-30) mmol/L BUN 14 (9-20) mg/dL Creatinine 0.90 (0.66-1.25) mg/dL Glucose 120 H (74-99) mg/dL Calcium 8.9 (8.4-10.2) mg/dL AST 45 (17-59) U/L ALT 41 (21-72) U/L Alkaline Phosphatase 184 H (38-126) U/L Total Protein 6.0 L (6.3-8.2) g/dL Albumin 3.0 L (3.5-5.0) g/dL Current Medications Generic Name Dose Route Start Last Admin Trade Name Freq PRN Reason Stop Dose Admin Acetaminophen 650 mg 06/28/17 15:14 Tylenol Tab PO Q6HR PRN Mild Pain or Fever > 100.5 Hydrocodone Bitart/Acetaminophen 1 each 06/28/17 17:30 06/29/17 09:20 [place] 5-325 PO 1 each Q6HR PRN Administration Pain Allopurinol 300 mg 06/29/17 09:00 06/29/17 09:19 Zyloprim PO 300 mg DAILY JESSY Administration Clonidine 0.1 mg 06/28/17 17:30 Catapres PO Q4HR PRN Hypertension Folic Acid 1 mg 06/29/17 12:00 Folic Acid PO DAILY@1200 JESSY Hydromorphone HCl 0.5 mg 06/28/17 17:30 Dilaudid Syringe IVP Q4HR PRN Severe Pain Vancomycin HCl 2,000 mg/ 500 mls @ 167 mls/hr 06/29/17 00:00 06/29/17 00:57 Sodium Chloride IVPB 167 mls/hr Q12H JESSY Administration Piperacillin/Tazobactam/ 50 mls @ 12.5 mls/hr 06/28/17 16:00 06/29/17 09:18 Dextrose 3.375 gm/ IV Solution IVPB 12.5 mls/hr Q8HR JESSY Administration Lorazepam 1 mg 06/28/17 16:44 Ativan IV Q2HR PRN CIWA 8 or 9 Lorazepam 1 mg 06/28/17 16:44 Ativan IV Q1HR PRN CIWA 10 to 15 Lorazepam 2 mg 06/28/17 16:44 Ativan IV 06/30/17 16:44 Q10M PRN CIWA 16 or higher Metoprolol Tartrate 25 mg 06/28/17 21:00 06/29/17 09:19 Lopressor PO 25 mg BID JESSY Administration Miscellaneous Information 1 each 06/28/17 17:00 Magnesium Per Protocol MISCELLANE DAILY PRN Per Protocol Protocol Naloxone HCl 0.2 mg 06/28/17 15:14 Narcan IV Q2M PRN Opioid Reversal Ondansetron HCl 4 mg 06/28/17 15:14 Zofran IVP Q8HR PRN Nausea And Vomiting Pantoprazole Sodium 40 mg 06/29/17 09:00 06/29/17 09:19 Protonix IVP 40 mg DAILY JESSY Administration Temazepam 15 mg 06/28/17 17:30 06/28/17 23:45 Restoril PO 15 mg HS PRN Administration Insomnia Thiamine HCl 100 mg 06/28/17 17:00 06/28/17 18:03 Vitamin B-1 PO 100 mg BID@1200,1700 JESSY Administration Warfarin Sodium 5 mg 06/28/17 17:30 06/28/17 18:03 Coumadin PO 5 mg W/SUPPER JESSY Administration Intake and Output 06/28/17 06/29/17 06/29/17 22:59 06:59 14:59 Intake Total 440 600 Balance 440 600 Intake: Oral 440 600 Other: # Voids 1 1 Weight 127.006 kg 06/29/17 08:54 06/28/17 12:22 Assessment and Plan Plan: ASSESSMENT 1. Chest pain, atypical 2. Exertional dyspnea 3. Paroxysmal atrial fibrillation on heading pinner anticoagulation with Coumadin, rate controlled 4. Essential hypertension 5. Chronic alcohol abuse PLAN We will obtain 2D echocardiogram and doppler study to evaluate cardiac structure and function. Change anticoagulation to Eliquis 5 mg PO BID from coumadin due to fluctuating/ variable INR if reasonable copay with insurance company. Nurse Practitioner note has been reviewed, I agree with a documented findings and plan of care. Patient was seen and examined.
--- NOTE | 2017-06-29 14:48 | CT ---
EXAMINATION TYPE: CT abdomen pelvis w con DATE OF EXAM: 06/29/2017 COMPARISON: Prior CT abdomen pelvis 04/27/2017 HISTORY: Abdominal pain CT DLP: [id number] mGycm Automated exposure control for dose reduction was used. TECHNIQUE: Helical acquisition of images from the lung bases through the pelvis have been completed. CONTRAST: Performed with Oral Contrast and with IV Contrast, patient injected with 100 mL of Omnipaque 300. FINDINGS: Postop changes are again noted in the stomach, patient is status post gastric bypass and Ro [id number]. At the level of the patient's anastomosis there is some soft tissue attenuation present whic h may represent focal bowel wall thickening, difficult to exclude stenotic focus, some local small rebel wel bowel dilation is present. No contrast is present within the stomach. Suspect there is an anterio r abdominal wall hernia, bowel loops extend to the level of the subcutaneous fat on axial image 59. LUNG BASES: Stable, posttraumatic changes are present along the posterior lateral right chest wall. AORTA: No significant abnormality is appreciated. LIVER/GB: Patient is post cholecystectomy. Liver shows low attenuation likely due to fatty infiltrati on. PANCREAS: No significant abnormality is seen. SPLEEN: No significant abnormality is seen. ADRENALS: No significant abnormality is seen. KIDNEYS: Stable and I cannot exclude a mid left ureteral calculus measuring only approximately 1 to 2 mm. No hydronephrosis however. REPRODUCTIVE ORGANS: Prostate calcifications again noted. BOWEL: Contrast has not coursed distally within the small bowel. Follow-up as indicated. Diverticula r change noted in the sigmoid and descending colon. FREE AIR: No Free Air visible. ASCITES: None visible. PELVIC ADENOPATHY: None visualized. RETROPERITONEAL ADENOPATHY: No Retroperitoneal Adenopathy visible. URINARY BLADDER: No significant abnormality is seen. OSSEOUS STRUCTURES: No significant abnormality is seen. IMPRESSION: CONSIDER SURGICAL CONSULT FOR EVALUATION OF PATIENT'S ANASTOMOSIS DESCRIBED. DIFFICULT TO EXCLUDE URETERAL CALCULUS. CORRELATE. ADDITIONAL FINDINGS ABOVE.
[2017-06-29] MEDS: WARFARIN 5 MG TAB PO SCH (17:32)
--- NOTE | 2017-06-29 17:44 | P.PN ---
Subjective Progress Note Date: 06/29/17 Progress note being dictated for Dr. Ontiveros. Interval history: This is 67-year-old gentleman admitted with acute sepsis , possible right lower lobe pneumonia, EtOH withdrawal and multiple other medical issues. Maintained onCIWA protocol, has not required throughout the night or this morning. Antibiotics as per infectious disease. CT of abdomen and pelvis pending. Objective - Vital Signs Vital signs: Vital Signs Temp 98.9 F 06/29/17 15:00 Pulse 98 06/29/17 15:00 Resp 16 06/29/17 15:00 BP 125/67 06/29/17 15:00 Pulse Ox 96 06/29/17 15:00 Intake & Output 06/28/17 06/29/17 06/29/17 18:59 06:59 18:59 Intake Total 240 800 Balance 240 800 Weight 127.006 kg Intake: Oral 240 800 Other: # Voids 1 2 - Exam PHYSICAL EXAM: VITAL SIGNS: As above GENERAL: Sitting up in bed, no acute distress HEENT: Conjunctivae normal. eyes normal. Oral mucosa moist NECK: No JVD. No thyroid enlargement. No LNs CARDIOVASCULAR: S1, S2 muffled. No murmur RESPIRATION: Breath sounds diminished in the bases. Occasional rhonchi, no crackles, no wheezing ABDOMEN: Soft, nontender . No guarding. no masses palpable. No guarding, no rigidity Bowel sounds heard. LEGS: Positive mild edema. Mild swelling. PSYCHIATRY: Alert and oriented -3, mood and affect normal. NERVOUS SYSTEM: Cranial N 2-12 grossly normal. Moves all 4 limbs. Diffuse weakness No focal deficits. No sensory deficit. Skin: no ulcer no rash Joints: No active swelling. No inflammation. - Labs CBC & Chem 7: 06/29/17 08:54 06/29/17 08:54 Labs: Abnormal Lab Results - Last 24 Hours (Table) 06/29/17 06/29/17 06/29/17 Range/Units 08:54 08:54 08:54 WBC 3.4 L (3.8-10.6) k/uL RBC 3.73 L (4.30-5.90) m/uL Hgb 11.9 L (13.0-17.5) gm/dL Hct 37.4 L (39.0-53.0) % MCV 100.1 H (80.0-100.0) fL Lymphocytes # 0.5 L (1.0-4.8) k/uL PT 20.6 H (9.0-12.0) sec INR 2.1 H (<1.2) Chloride 110 H (98-107) mmol/L Carbon Dioxide 20 L (22-30) mmol/L Calcium 8.1 L (8.4-10.2) mg/dL Microbiology - Last 24 Hours (Table) 06/28/17 12:22 Blood Culture - Preliminary Blood No Growth after 24 hours 06/28/17 15:02 Urine Culture - Preliminary Urine,Voided Assessment and Plan Plan: 1. Acute sepsis secondary to possible right lower lobe pneumonia. 2. [ EtOH abuse with withdrawal]. 3. [ History of atrial fibrillation]. 4. [ Degenerative joint disease]. 5. [ History of right renal cancer]. 6. [ Recent pancreatitis]. 7. []. Plan: Continue on current medication regime ,monitoring and symptomatic treatment. Maintain CIWA protocol. Antibiotics of vancomycin and Zosyn as per infectious disease. Continue following cultures closely. Close monitoring of renal function, electrolytes with repeat labs ordered for a.m. CT abdomen/ pelvis pending. Alcohol cessation readdressed. The impression and plan of care has been dictated as directed as a scribe. : I performed a H&P examination of this patient and discussed the same with the dictator. I agree with the dictator's note. Any additional findings/opinions/ etc. will be noted.
[2017-06-29] MEDS ORDERED: APIXABAN 5 MG TAB PO SCH (21:00)
[2017-06-29] MEDS: TEMAZEPAM 15 MG CAP PO PRN (21:45)
[2017-06-30] MEDS: VANCOMYCIN 2,000 MG in SODIUM CHLORIDE 0.9% 500 ML IVPB SCH ×2 (00:50→12:57)
[2017-06-30] MEDS: PIPERACILLIN-TAZOBACTAM 3.375 GM in DEXTROSE/WATER 1 50ML.BAG IVPB SCH ×3 (01:47→15:40)
[2017-06-30] MEDS: HYDROcodone/APAP 5-325MG 1 EACH TAB PO PRN ×2 (04:36→21:38)
--- NOTE | 2017-06-30 06:10 | PN ---
PROGRESS NOTE DATE OF SERVICE: 06/29/2017 REASON FOR FOLLOWUP: Fever and a question of pneumonia. INTERVAL HISTORY: The patient overall feels better and has improved. Has been breathing comfortably and did have very mild cough. No nausea, vomiting or abdominal pain and no diarrhea. PHYSICAL EXAMINATION: On examination, blood pressure is 125/67 with a pulse of 90, temperature 98.9. He is 96% on room air. General description is an elderly male lying in bed in no distress. RESPIRATORY SYSTEM: Unlabored breathing with decreased breath sounds at the bases. No wheeze. HEART: S1, S2. Regular rate and rhythm. ABDOMEN: Soft, no tenderness. LABS: Hemoglobin 11.9, white count 3.4 with a BUN of 11, creatinine 1.18. Blood culture negative so far. DIAGNOSTIC IMPRESSION AND PLAN: Patient with fever with a source questionable of pneumonia versus intraabdominal source. A CT has been obtained, which did have some possibility of abnormality at the anastomotic site. This will be reviewed with radiologist tomorrow. Keep the patient on Zosyn and Vanco at this point to which is fever has responded. Continue supportive care. MMODL / IJN: [id number] /
[2017-06-30] MEDS: ALLOPURINOL 300 MG TAB PO SCH (08:00)
[2017-06-30] MEDS: PANTOPRAZOLE 40 MG TABLET PO SCH (08:00)
[2017-06-30] MEDS: METOPROLOL TARTRATE 25 MG TAB PO SCH ×2 (08:01→21:38)
[2017-06-30 08:19] LABS: Basophils % (A) 1 %; CH 31.8; CHCM 32.1; Eosinophils # (A) 0.2 k/uL (0-0.7); Eosinophils % (A) 5 %; HCT 40.1 % (39.0-53.0); HDW 2.31; HGB 12.7 gm/dL (13.0-17.5); Luc % (Auto) 3; Lymphocytes # (A) 0.6 k/uL (1.0-4.8); Lymphocytes % (A) 14 %; MCH 31.4 pg (25.0-35.0); MCHC 31.6 g/dL (31.0-37.0); MCV 99.4 fL (80.0-100.0); Macrocytosis Slight; Mean Platelet Volume 8.3; Monocytes # (A) 0.2 k/uL (0-1.0); Monocytes % (A) 5 %; Neutrophils % (A) 72 %; RBC 4.03 m/uL (4.30-5.90); WBC 4.1 k/uL (3.8-10.6); WBC (Perox) 4.13
[2017-06-30 08:22] LABS: INR 1.9 (<1.2); Prothrombin Time 18.4 sec (9.0-12.0)
[2017-06-30 08:45] LABS: Anion Gap 8 mmol/L; Blood Urea Nitrogen 10 mg/dL (9-20); Calcium 8.7 mg/dL (8.4-10.2); Carbon Dioxide 23 mmol/L (22-30); Chloride 108 mmol/L (98-107); Glucose 111 mg/dL (74-99); Non-African American GFR(MDRD) >60 (>60 ml/min/1.73 sqM); Potassium 3.7 mmol/L (3.5-5.1); Sodium 139 mmol/L (137-145)
[2017-06-30] MEDS: FOLIC ACID 1 MG TAB PO SCH (12:57)
[2017-06-30] MEDS: THIAMINE 100 MG TAB PO SCH ×2 (12:57→18:20)
--- NOTE | 2017-06-30 13:51 | P.PN ---
Progress Note - Text Progress Note Date: 06/29/17 Case management evaluated and Eliquis cost is unreasonable for the patient. He states his prescription coverage will change in September and he will switch at that time. He is advised to follow up with Dr. Mcadams as an outpatient to make that change.
--- NOTE | 2017-06-30 18:08 | P.PN ---
Subjective Progress Note Date: 06/30/17 Progress note being dictated for Dr. Ontiveros. 06/29/2017 Interval history: This is 67-year-old gentleman admitted with acute sepsis ,possible right lower lobe pneumonia, EtOH withdrawal and multiple other medical issues. Maintained onCIWA protocol, has not required throughout the night or this morning. Antibiotics as per infectious disease. CT of abdomen and pelvis pending. 06/30/2017 CT suggestive of soft tissue attenuation possible bowel wall thickening at the anastomosis site, difficult to exclude stenotic focus, some local small bowel dilation present, suspect anterior abdominal wall hernia, diverticular changes in the sigmoid and descending colon, possible ureteral calculus. Denies abdominal pain. Denies nausea or vomiting. Afebrile. Urine culture negative, preliminary blood cultures negative. INR 1.9, on Coumadin. Objective - Vital Signs Vital signs: Vital Signs Temp 98.1 F 06/30/17 15:00 Pulse 60 06/30/17 15:00 Resp 18 06/30/17 15:25 BP 139/81 06/30/17 15:00 Pulse Ox 98 06/30/17 15:00 Intake & Output 06/29/17 06/30/17 06/30/17 18:59 06:59 18:59 Other: Voiding Method Toilet Urinal # Voids 2 1 4 # Bowel Movements 4 - Exam PHYSICAL EXAM: VITAL SIGNS: As above GENERAL: Sitting up in bed, no acute distress HEENT: Conjunctivae normal. eyes normal. Oral mucosa moist NECK: No JVD. No thyroid enlargement. No LNs CARDIOVASCULAR: S1, S2 muffled. No murmur RESPIRATION: Breath sounds diminished in the bases. Occasional rhonchi, no crackles, no wheezing ABDOMEN: Soft, nontender . No guarding. no masses palpable. No guarding, no rigidity Bowel sounds heard. LEGS: Positive mild edema. Mild swelling. PSYCHIATRY: Alert and oriented -3, mood and affect normal. NERVOUS SYSTEM: Cranial N 2-12 grossly normal. Moves all 4 limbs. Diffuse weakness No focal deficits. No sensory deficit. Skin: no ulcer no rash Joints: No active swelling. No inflammation. - Labs CBC & Chem 7: 06/30/17 07:59 06/30/17 07:59 Labs: Abnormal Lab Results - Last 24 Hours (Table) 06/30/17 06/30/17 06/30/17 Range/Units 07:59 07:59 07:59 RBC 4.03 L (4.30-5.90) m/uL Hgb 12.7 L (13.0-17.5) gm/dL Lymphocytes # 0.6 L (1.0-4.8) k/uL PT 18.4 H (9.0-12.0) sec INR 1.9 H (<1.2) Chloride 108 H (98-107) mmol/L Glucose 111 H (74-99) mg/dL Microbiology - Last 24 Hours (Table) 06/28/17 12:22 Blood Culture - Preliminary Blood No Growth after 48 hours 06/28/17 15:02 Urine Culture - Final Urine,Voided Assessment and Plan Plan: 1. Acute sepsis secondary to possible right lower lobe pneumonia, possible abnormal anastomosis site per CT. 2. [ EtOH abuse with withdrawal]. 3. [ History of atrial fibrillation]. 4. [ Degenerative joint disease]. 5. [ History of right renal cancer]. 6. [ Recent pancreatitis]. 7. Plan: Continue on current medication regime ,monitoring and symptomatic treatment. Surgery consulted regarding abnormal CT of the anastomosis site. Maintain CIWA protocol. Antibiotics as per infectious disease. Continue following cultures closely. Close monitoring of renal function, electrolytes, INR with repeat labs ordered for a.m. The impression and plan of care has been dictated as directed as a scribe. : I performed a H&P examination of this patient and discussed the same with the dictator. I agree with the dictator's note. Any additional findings/opinions/ etc. will be noted.
[2017-06-30] MEDS: WARFARIN 5 MG TAB PO SCH (18:21)
[2017-06-30] MEDS: TEMAZEPAM 15 MG CAP PO PRN (21:39)
--- NOTE | 2017-06-30 22:13 | PN ---
PROGRESS NOTE DATE OF SERVICE: 06/30/2017. REASON FOR FOLLOWUP: Possible pneumonia. INTERVAL HISTORY: The patient is afebrile, has been breathing comfortably, has very minimal cough, not bringing up any sputum. No chest pain. No abdominal pain. No nausea, vomiting or any diarrhea. EXAMINATION: Blood pressure 139/81 with a pulse of 60, temperature 98.1. He is 98% on room air. GENERAL DESCRIPTION: An elderly male, lying in bed in no distress. RESPIRATORY SYSTEM: Unlabored breathing. Clear to auscultation anteriorly. HEART: S1, S2. Regular rate and rhythm. ABDOMEN: Soft. No tenderness. LABS: Hemoglobin is 12.7, white count of 4.1, BUN of 10, creatinine 1.07. Blood cultures have been negative. CT was reviewed with the radiologist with minimal atelectasis in the right lung base and no significant abnormality on the abdomen, especially at the anastomosis site. DIAGNOSTIC IMPRESSION AND PLAN: Patient in the hospital with fever and sepsis. Concern for possible pneumonia. There was also concern for an abdominal source; however, a CT of the abdomen and pelvis was reviewed with the radiologist and no evidence of any abscess or inflammation. The patient will be kept on the Zosyn. Vancomycin will be discontinued. If he continues to improve, will finish therapy with Augmentin. Continue supportive care. MMODL / IJN: [id number] /
[2017-07-01] MEDS: PIPERACILLIN-TAZOBACTAM 3.375 GM in DEXTROSE/WATER 1 50ML.BAG IVPB SCH ×2 (00:30→09:07)
[2017-07-01 07:27] VITALS: PULSE 63; RESP 18
--- NOTE | 2017-07-01 08:37 | P.GSCN ---
History of Present Illness Consult date: 07/01/17 History of present illness: Patient is a 67-year-old gentleman who presented with a complaint of fever and chills. He also describes some tightness in his chest. He states that he has had no abdominal pain. He has had some diarrhea. He has no difficulty eating and no nausea or vomiting. The patient has undergone a gastric bypass in the past. The patient has a history of atrial fibrillation. He is a daily EtOH abuser. Chest x-ray at this admission revealed mild cardiomegaly with scarring versus atelectasis in the right lung base. He has a possible right lower lobe pneumonia. A computed tomography scan of the abdomen was performed with some suggestion of soft tissue attenuation possible bowel wall thickening at the anastomosis of his gastric bypass. The patient however has no symptoms related to this. Past surgical history: 1. Gastric bypass initially lost 62 pounds. His regained the weight and now weighs approximately 280 pounds 2. Bowel resection for perforation with colostomy formation 3. Reversal of colostomy 4. Left knee surgery 5. Cholecystectomy 6. Ventral hernia repair with recurrence of the hernia Past medical history: 1. Atrial fibrillation 2. Gout 3. Right kidney cancer treated with ablation Medications: 1. Allopurinol 2. Coumadin 3. Metoprolol ALLERGIES: Negative Social history: Smoking: Negative Alcohol: 2 drinks per day Marijuana: Negative Review of systems: HEENT: Negative Lungs: Questionable pneumonia Heart: Atrial fibrillation GI: As above : Positive for kidney cancer treated with ablation Review of Systems - Constitutional Reports as per HPI, Reports fever - Cardiovascular Cardiovascular Comment(s): Atrial fibrillation on Coumadin Reports as per HPI - Respiratory Reports as per HPI - Gastrointestinal Reports as per HPI - Genitourinary Genitourinary Comment(s): Right kidney cancer Reports as per HPI Past Medical History Past Medical History: Atrial Fibrillation, Blood Disorder, Osteoarthritis (OA), Pulmonary Embolus (PE) Additional Past Medical History / Comment(s): PANCREATITIS. DIVERTICULITIS. Gout. Past hx. A-fib. Cyst on kidney. Hx. of a pneumothorax after a past surg. History of Any Multi-Drug Resistant Organisms: None Reported Past Surgical History: Bariatric Surgery, Bowel Resection, Cholecystectomy, Hernia Repair, Joint Replacement Additional Past Surgical History / Comment(s): COLONOSOCPY , 05-09-16 LAP EMA/LYSIS OF ADHESIONS,Bowel resection w/colostomy, then had reversed. Left knee replacement. Paraesophageol hiatal hernia repair. Lysis of adhesions. Excision of mediastinal mass. Gastric sleeve converted to darrell en y- aug 21, 2014. Past Anesthesia/Blood Transfusion Reactions: No Reported Reaction Past Psychological History: No Psychological Hx Reported Smoking Status: Former smoker Past Alcohol Use History: Occasional Additional Past Alcohol Use History / Comment(s): SMOKING: FOR 19 YRS, STOPPED, 1987. ETOH: HISTORY OF ABUSE- ADMITS TO DRINKING 2-3 MIXED DRINKS PER DAY Past Drug Use History: None Reported - Past Family History Father Family Medical History: Myocardial Infarction ([place]) Additional Family Medical History / Comment(s): from mi, emphysema Mother Family Medical History: Cancer Additional Family Medical History / Comment(s): ovarian Sister(s) Family Medical History: Cancer Additional Family Medical History / Comment(s): breast, has heart problems- defibrillator Medications and Allergies Home Medications Medication Instructions Recorded Confirmed Type Allopurinol [Zyloprim] 300 mg PO DAILY 02/22/14 06/28/17 History Multivitamin [Men's Multi-Vitamin] 1 tab PO DAILY 03/22/14 06/28/17 History Cholecalciferol [Vitamin D3] 5,000 unit PO DAILY 07/26/14 06/28/17 History Calcium Carbonate/Vitamin D3 1 tab PO BID 05/07/16 06/28/17 History [Calcium 600-Vit D3 400 Caplet] Acetaminophen Tab [Tylenol] 500 - 1,000 mg PO DAILY PRN 06/20/16 06/28/17 History Cyanocobalamin [Vitamin B-12] 1,000 mcg PO DAILY@1200 #60 tablet 12/23/16 Rx Metoprolol Tartrate [Lopressor] 25 mg PO BID 06/28/17 06/28/17 History Warfarin Sodium [Coumadin] 5 mg PO W/SUPPER 06/28/17 06/28/17 History Apixaban [Eliquis] 5 mg PO BID #60 tab 06/29/17 Rx Allergies Allergy/AdvReac Type Severity Reaction Status Date / Time No Known Allergies Allergy Verified 06/28/17 13:57 Surgical - Exam Vital Signs Temp Pulse Resp BP Pulse Ox 102.2 F H 117 H 20 164/84 95 06/28/17 11:48 06/28/17 11:48 06/28/17 11:48 06/28/17 11:48 06/28/17 11:48 - General obese - Eyes normal ocular movement - ENT normal pinna, normal nares, no hearing loss - Neck no masses, trachea midline, no lymphadectomy, no venous distension - Respiratory normal expansion, normal respiratory effort, clear to auscultation - Cardiovascular Rhythm: regular Heart Sounds: normal: S1, S2 - Abdomen Ventral hernia no incarceration The hernia is along the midline abdominal incision with several areas of fenestration and herniation but no incarceration Abdomen: soft, non tender, bowel sounds - Psychiatric oriented to time, oriented to person, oriented to place, speech is normal Results - Labs 06/30/17 07:59 06/30/17 07:59 Abnormal Lab Results - Last 24 Hours (Table) 06/30/17 Range/Units 07:59 Chloride 108 H (98-107) mmol/L Glucose 111 H (74-99) mg/dL Microbiology - Last 24 Hours (Table) 06/28/17 12:22 Blood Culture - Preliminary Blood No Growth after 48 hours Diabetes panel 06/30/17 Range/Units 07:59 Sodium 139 (137-145) mmol/L Potassium 3.7 (3.5-5.1) mmol/L Chloride 108 H (98-107) mmol/L Carbon Dioxide 23 (22-30) mmol/L BUN 10 (9-20) mg/dL Creatinine 1.07 (0.66-1.25) mg/dL Glucose 111 H (74-99) mg/dL Calcium 8.7 (8.4-10.2) mg/dL Calcium panel 06/30/17 Range/Units 07:59 Calcium 8.7 (8.4-10.2) mg/dL Pituitary panel 06/30/17 Range/Units 07:59 Sodium 139 (137-145) mmol/L Potassium 3.7 (3.5-5.1) mmol/L Chloride 108 H (98-107) mmol/L Carbon Dioxide 23 (22-30) mmol/L BUN 10 (9-20) mg/dL Creatinine 1.07 (0.66-1.25) mg/dL Glucose 111 H (74-99) mg/dL Calcium 8.7 (8.4-10.2) mg/dL Adrenal panel 06/30/17 Range/Units 07:59 Sodium 139 (137-145) mmol/L Potassium 3.7 (3.5-5.1) mmol/L Chloride 108 H (98-107) mmol/L Carbon Dioxide 23 (22-30) mmol/L BUN 10 (9-20) mg/dL Creatinine 1.07 (0.66-1.25) mg/dL Glucose 111 H (74-99) mg/dL Calcium 8.7 (8.4-10.2) mg/dL - Imaging CT scan - abdomen: report reviewed (Possible stenotic focus near the area of the gastric bypass) CT scan - pelvis: report reviewed Assessment and Plan Plan: Impression/plan: 1. Possible right lower lobe pneumonia 2. EtOH withdrawal 3. Atrial fibrillation 4. Degenerative joint disease 5. Right renal cancer 6. Pancreatitis in the recent past 7. Computed tomography scan findings question of some stenosis at the gastric bypass site Plan: 1. Medical management of possible pneumonia 2. Medical management of multiple medical problems 3. We'll discuss case with the bariatric colleagues. At this time patient does not have an acute surgical abdomen, may consider EGD in the future
[2017-07-01] MEDS: ALLOPURINOL 300 MG TAB PO SCH (09:05)
[2017-07-01] MEDS: PANTOPRAZOLE 40 MG TABLET PO SCH (09:05)
[2017-07-01] MEDS: METOPROLOL TARTRATE 25 MG TAB PO SCH (09:05)
[2017-07-01] MEDS ORDERED: VANCOMYCIN TROUGH DUE 1 EACH MISC MISCELLANE ONE (11:00)
[2017-07-01] MEDS: FOLIC ACID 1 MG TAB PO SCH (11:34)
[2017-07-01] MEDS: THIAMINE 100 MG TAB PO SCH (11:34)
--- NOTE | 2017-07-01 11:47 | PN ---
PROGRESS NOTE DATE OF SERVICE: 07/01/2017 REASON FOR FOLLOWUP: Fever. INTERVAL HISTORY: The patient is afebrile. Has been feeling better. Breathing comfortably. No significant cough or chest pain. No abdominal pain. No nausea or vomiting. Has been complaining of diarrhea, had about 4 stools this morning. PHYSICAL EXAMINATION: On examination, blood pressure is 139/77 with a pulse of 63, temperature 97.7. He is 97% on room air. General description is an elderly male, lying in bed, in no distress. RESPIRATORY SYSTEM: Unlabored breathing. Clear to auscultation anteriorly. HEART: S1, S2. Regular rate and rhythm. ABDOMEN: Soft, no tenderness. LABS: Hemoglobin is 12.7, white count 4.1 with a BUN of 10, creatinine 1.07. Blood culture has been negative. DIAGNOSTIC IMPRESSION AND PLAN: 1. Patient with fever with concern for possible pneumonia. His CT was reviewed with no evidence of any inflammation and the anastomotic changes were the same from the CT 2 months before with no inflammatory changes. He will be continued on Zosyn with plan to finish therapy with oral Augmentin for about a week. 2. Diarrhea, antibiotic associated. We will add Questran for symptomatic relief and wait for the stool for Clostridium difficile, which we will treat if positive though clinically doubt Clostridium difficile colitis. MMODL / IJN: [id number] /
[2017-07-01 12:01] LABS: Basophils % (A) 0 %; CH 31.4; CHCM 31.6; Eosinophils # (A) 0.2 k/uL (0-0.7); Eosinophils % (A) 5 %; HCT 38.9 % (39.0-53.0); HDW 2.33; HGB 12.2 gm/dL (13.0-17.5); Luc # (Auto) 0.18; Luc % (Auto) 4; Lymphocytes # (A) 0.5 k/uL (1.0-4.8); Lymphocytes % (A) 12 %; MCH 31.3 pg (25.0-35.0); MCHC 31.3 g/dL (31.0-37.0); Macrocytosis Slight; Mean Platelet Volume 7.9; Monocytes # (A) 0.3 k/uL (0-1.0); Monocytes % (A) 6 %; Neutrophils % (A) 72 %; RBC 3.89 m/uL (4.30-5.90); RDW 14.4 % (11.5-15.5); WBC 4.1 k/uL (3.8-10.6); WBC (Perox) 4.35
[2017-07-01 12:02] LABS: INR 1.9 (<1.2)
[2017-07-01 12:03] LABS: Prothrombin Time 18.4 sec (9.0-12.0)
[2017-07-01 12:14] LABS: Anion Gap 6 mmol/L; Blood Urea Nitrogen 7 mg/dL (9-20); Calcium 8.8 mg/dL (8.4-10.2); Carbon Dioxide 23 mmol/L (22-30); Chloride 111 mmol/L (98-107); Glucose 95 mg/dL (74-99); Non-African American GFR(MDRD) >60 (>60 ml/min/1.73 sqM); Potassium 4.1 mmol/L (3.5-5.1); Sodium 140 mmol/L (137-145)
[2017-07-01 14:43] VITALS: BP 123/76; TEMP 97.5
[2017-07-01] MEDS ORDERED: CHOLESTYRAMINE (WITH SUGAR) 4 GM PACKET PO SCH (18:00)
--- NOTE | 2017-07-01 19:04 | P.DS ---
Providers Date of admission: 06/28/17 15:19 Expected date of discharge: 07/01/17 Attending physician: Jamal Powell Consults: 06/28/17 16:41 Consult Physician Urgent Consulting Provider: Garret Garcia Consult Reason/Comments: sepsis Do you want consulting provider notified?: Already Contacted 06/30/17 17:56 Consult Physician Routine Consulting Provider: Shavonne Ely Consult Reason/Comments: Abn. Abd. CT , HX of gastric bypass/darrell Do you want consulting provider notified?: Yes Primary care physician: Rebekah Hood [facility] Hospital Course: Final Diagnoses: 1. Acute sepsis secondary to possible right lower lobe pneumonia, possible abnormal anastomosis site per CT, further follow-up outpatient with surgery. 2. Recent pancreatitis secondary to EtOH abuse with withdrawal. 3. History of chronic atrial fibrillation]. 4. [ Degenerative joint disease]. 5. [ History of right renal cancer]. 6. Diarrhea, antibiotic associated, negative for C. difficile colitis. Questran for another 4 days. Hospital course:This is 67-year-old gentleman admitted with acute sepsis , possible right lower lobe pneumonia, diarrhea, chest pain and multiple other medical issues. Evaluated by infectious disease, surgery, cardiology. Cardiac enzymes negative, EKG reported sinus tachycardia with nonspecific ST and T-wave abnormalities. EF 55-60%. Atypical chest pain as per cardiology .Maintained on CIWA protocol; no DTs. Antibiotics as per infectious disease. CT suggestive of soft tissue attenuation possible bowel wall thickening at the anastomosis site, difficult to exclude stenotic focus, some local small bowel dilation present, suspect anterior abdominal wall hernia,diverticular changes in the sigmoid and descending colon, possible ureteral calculus. Denies abdominal pain. Urine culture negative, blood cultures negative. Negative for C. difficile colitis. Significant clinical improvement. Cleared by all consults for discharge. Patient is being discharged home in a stable condition with guarded prognosis. The impression and plan of care has been dictated as directed. : I performed a history and examination of this patient, discussed the same with the dictator. I agree with the dictator's note ,documented as a scribe. Any additional findings or plans will be noted. Patient Condition at Discharge: Stable Plan - Discharge Summary New Discharge Prescriptions: New Amoxic-Pot Clav 875-125Mg [Augmentin 875-125] 1 tab PO BID #14 tablet Cholestyramine (with Sugar) [Questran Powder] 4 gm PO BID #8 gm Folic Acid 1 mg PO DAILY@1200 #30 tab Thiamine [Vitamin B-1] 100 mg PO BID@1200,1700 #30 tab LORazepam [Ativan] 0.5 mg PO TID #20 tab Continue Warfarin Sodium [Coumadin] 5 mg PO W/SUPPER Multivitamin [Men's Multi-Vitamin] 1 tab PO DAILY #30 No Action Allopurinol [Zyloprim] 300 mg PO DAILY Cholecalciferol [Vitamin D3] 5,000 unit PO DAILY Calcium Carbonate/Vitamin D3 [Calcium 600-Vit D3 400 Caplet] 1 tab PO BID Acetaminophen Tab [Tylenol] 500 - 1,000 mg PO DAILY PRN PRN Reason: Pain Cyanocobalamin [Vitamin B-12] 1,000 mcg PO DAILY@1200 #60 tablet Metoprolol Tartrate [Lopressor] 25 mg PO BID Discharge Medication List Allopurinol [Zyloprim] 300 mg PO DAILY 02/22/14 [History] Cholecalciferol [Vitamin D3] 5,000 unit PO DAILY 07/26/14 [History] Calcium Carbonate/Vitamin D3 [Calcium 600-Vit D3 400 Caplet] 1 tab PO BID [History] Acetaminophen Tab [Tylenol] 500 - 1,000 mg PO DAILY PRN 06/20/16 [History] Cyanocobalamin [Vitamin B-12] 1,000 mcg PO DAILY@1200 #60 tablet 12/23/16 [Rx] Metoprolol Tartrate [Lopressor] 25 mg PO BID 06/28/17 [History] Warfarin Sodium [Coumadin] 5 mg PO W/SUPPER 06/28/17 [History] Amoxic-Pot Clav 875-125Mg [Augmentin 875-125] 1 tab PO BID #14 tablet 07/01/17 [ Rx] Cholestyramine (with Sugar) [Questran Powder] 4 gm PO BID #8 gm 07/01/17 [Rx] Folic Acid 1 mg PO DAILY@1200 #30 tab 07/01/17 [Rx] LORazepam [Ativan] 0.5 mg PO TID #20 tab 07/01/17 [Rx] Multivitamin [Men's Multi-Vitamin] 1 tab PO DAILY #30 07/01/17 [Rx] Thiamine [Vitamin B-1] 100 mg PO BID@1200,1700 #30 tab 07/01/17 [Rx] Follow up Appointment(s)/Referral(s): Shavonne Ely MD [STAFF PHYSICIAN] - 1 Week Krystina Vasquez MD [STAFF PHYSICIAN] - (Out of town, after initial follow up with Dr Ely, future visits will be with Dr Vasquez. ) Rebekah Hood DO [Primary Care Provider] - 07/06/17 10:40 am Ambulatory/Diagnostic Orders: Prothrombin Time INR [LAB.AMB] Time Frame: 07/03/17, Location: Determined By Patient Patient Instructions/Handouts: Pneumonia (DC) Activity/Diet/Wound Care/Special Instructions: Cardiac diet. Limit alcohol consumption. Followup with Dr. Ely regarding abnormal Ct result. Limited activity until follow up. Discharge Disposition: HOME SELF-CARE
== END 2017-07-01 16:41 | disposition home or self-care (01) | DRG 871 ==
LOC: EC 11:42 → 4MS4W 15:19
PROVIDERS: ADMIT Hospitalist; ATTEND Hospitalist
DX: A41.9 Sepsis, unspecified organism (principal); J18.9 Pneumonia, unspecified organism; K52.1 Toxic gastroenteritis and colitis; I48.0 Paroxysmal atrial fibrillation; I11.9 Hypertensive heart disease without heart failure; F10.239 Alcohol dependence with withdrawal, unspecified; T36.95XA Adverse effect of unspecified systemic antibiotic, initial encounter; M19.91 Primary osteoarthritis, unspecified site; M10.9 Gout, unspecified; K43.9 Ventral hernia without obstruction or gangrene; Z85.528 Personal history of other malignant neoplasm of kidney; Z79.01 Long term (current) use of anticoagulants; Z79.899 Other long term (current) drug therapy; Z96.652 Presence of left artificial knee joint; Z90.49 Acquired absence of other specified parts of digestive tract; Z87.891 Personal history of nicotine dependence; Z86.711 Personal history of pulmonary embolism; Z98.84 Bariatric surgery status
CPT/HCPCS: 36415; 70450; 71020; 74177; 80048; 80053; 81001; 82140; 82550; 82553; 83605; 83735; 84484; 85025; 85379; 85610; 85730; 87040; 87086; 87324; 93005; 93306; 96361; 96365; 99285

== ENCOUNTER → 2017-07-31 | Outpatient (CLI) | payer MEDICARE, OTHER ==
--- NOTE | 2017-07-31 16:29 | FL ---
EXAMINATION TYPE: FL UGI air DATE OF EXAM: 07/31/2017 COMPARISON: NONE HISTORY: Bibi-en-Y, gas and bloating sensation and abdomen TECHNIQUE: A single contrast UGI study is performed. FINDINGS: [employer] Machine Helper image of the abdomen shows no gross abnormality. Visualized esophagus appears normal. The esophageal bolus extends to the stomach normally. Patient is status post Bibi-en-Y. There is rapid transit of contrast through the residual stomach int o these loops of bowel. Small bowel and mild fold prominence. No stenosis at the anastomosis is evident. Significant filling of the stomach is not evident. IMPRESSIONS: 1. No obstruction is identified. There is rapid transit through the stomach Bibi-en-Y into the small bowel loops. Proximal small bowel may has some mild fold hypertrophy.
== END | disposition home or self-care (01) ==
LOC: RADFLWHC 10:57
PROVIDERS: ATTEND Surgery Plastic and Reconstructive Surgery
DX: K85.90 Acute pancreatitis without necrosis or infection, unspecified (principal)
CPT/HCPCS: 74246

== ENCOUNTER → 2017-09-09 | Outpatient (CLI) | payer MEDICARE, OTHER ==
[2017-09-09 17:16] VITALS: BP 179/89; PULSE 70; RESP 16; TEMP 98.2; BMI 41.5
--- NOTE | 2017-10-21 05:13 | P.PN ---
Subjective Progress Note Date: 09/09/17 DATE OF SERVICE: 09/09/2017 CHIEF COMPLAINT: Follow gastric bypass. HISTORY OF PRESENT ILLNESS: Martin Curtis is a 67-year-old gentleman who had a Bibi-en-Y gastric 08/21/2014. He is over 4 years out. His highest weight was 297 pounds for his 5 foot 10 inch frame. His body mass index was 42.7. Today he comes in weighing 289 pounds. He has gained 40 pounds since his last visit 1.5 years ago. From his lost weight of 219 pounds, he has regained 70 pounds in 4 years. Percent excess weight loss is only 6%. He comes in with a recent hospitalization less than 4 weeks ago for recurrent pancreatitis. He then disclosed that her continues to drink alcohol throughout the several years causing his recurrent bouts of pancreatitis. Separately, he has had difficulty following up with his bariatric lifestyle from a high- protein low carbohydrate diet. He eats moderate carbohydrates. No reports of abdominal pain. No reports of nausea and vomiting. No reports of dumping syndrome. PAST MEDICAL HISTORY: 1. Osteoarthritis. 2. Gout. 3. Gastroesophageal reflux disease. 4. Hypertension. 5. Morbid obesity. 6. Vitamin D deficiency. 7. History of spontaneous pneumothorax. 8. DVT. 9. Pulmonary embolism. 10. Recurrent acute pancreatitis. 11. Alcoholism. PAST SURGICAL HISTORY: 1. Status post left knee arthroplasty. 2. Colonoscopy. 3. Umbilical hernia repair. 4. Ventral hernia repair. 5. Right inguinal hernia repair. 6. Exploratory laparotomy with transverse colectomy. 7. Colostomy reversal. 8. Laparoscopic ventral hernia repair. 9. Bibi-en-Y gastric bypass. 10. Laparoscopic cholecystectomy. MEDICATIONS: 1. Coumadin. 2. Thiamine. 3. Prilosec. 4. Multivitamin. 5. Vitamin D. 6. Calcium. 7. Allopurinol. 8. Lopressor. 9. Vitamin B12. ALLERGIES: Denies. SOCIAL HISTORY: No active tobacco use; however, history of alcohol abuse. FAMILY HISTORY: No reports of gastrointestinal malignancies. REVIEW OF SYSTEMS: CONSTITUTIONAL: His highest weight was 297 pounds for his 5 foot 10 inch frame. His body mass index was 42.7. Today he comes in weighing 289 pounds. He has gained 40 pounds since his last visit 1.5 years ago. From his lost weight of 219 pounds, he has regained 70 pounds in 4 years. Percent excess weight loss is only 6%. GASTROINTESTINAL: Recurrent acute on chronic pancreatitis. No reports of dumping syndrome. No dysphagia. Dietary intake consistent with increased alcoholic caloric beverages. Protein intake less than under 60 gm daily. MUSCULOSKELETAL: No reports of worsening osteoarthritis of the bilateral knees. HEMATOLOGIC: He still takes Coumadin. Past history of pulmonary embolism. CARDIOVASCULAR: Recurrent hypertension. No recent chest pain.. RESPIRATORY: Recurrent obstructive sleep apnea. No pneumonias. ENDOCRINE: No reports of thyroid disorder or diabetes. GENITOURINARY: History of exophytic renal cyst which is stable. NEUROLOGIC: Denies any numbness, tingling of the extremities. PSYCH: No reports of depression or suicidal ideation. SKIN: No rash. No skin cancers. PHYSICAL EXAM: VITAL SIGNS: 5 feet 10, 289 pounds. Body mass index 41.6. Vital Signs Temp 98.2 F 09/09/17 17:14 Pulse 70 09/09/17 17:14 Resp 16 09/09/17 17:14 BP 179/89 09/09/17 17:14 Pulse Ox GENERAL: Well-developed male in no acute distress. ABDOMEN: Soft, nontender, nondistended. Recurrent incisional hernias unrelated to previous bariatric site. MUSCULOSKELETAL: No clubbing, cyanosis, or edema. NEURO: No focal or lateralizing signs. Cranial nerves II through XII grossly intact. HEENT: No scleral icterus. Extraocular movements grossly intact. Moist buccal mucosa. NECK: Supple without lymphadenopathy. CHEST: Unlabored respirations with equal bilateral respirations. CARDIOVASCULAR: Regular rate and rhythm. PSYCH: Appropriate affect. Alert normal person place and time. SKIN: Skin turgor. Well perfused. STUDIES: CT of the abdomen pelvis reviewed demonstrating multiple ventral hernias. Findings of diverticulosis. Stable cyst along the kidney. Upper GI reviewed demonstrating no evidence of intussusception or obstruction or mass of the small intestine. LABS: Elevated amylase lipase consistent with pancreatitis. ASSESSMENT: 1. Morbid obesity due to excess caloric intake. 2. Body mass index from 42.7 down to 41.6 3. Status post Bibi-en-Y gastric bypass. 4. Weight regain following bariatric procedure. 5. Chronic pancreatitis due to alcoholism. 6. Alcoholism. 7. Multiple ventral hernias unrelated to bariatric procedure. 8. Prior history of pulmonary embolism. 9. Chronic Coumadin therapy. 10. Hypertension. 11. Obstructive sleep apnea. 12. Dietary surveillance and counseling. PLAN: 1. He has regained all of this weight and in fact surpassed his initial weight upon presentation to bariatric center. Much of this is related to his chronic alcoholism. 2. Recommend bariatric lab profile. With his chronic alcoholism, he has risk for thiamine deficiency. 3. I have implored him to conscientiously restart his bariatric diet. He has gained so much weight that he has multiple recurrent incisional hernias with very thin skin overlying his intestine. 4. He had prior abnormal computed tomography scan which upon repeat demonstrates no evidence of intrapelvic or intra-abdominal mass. 5. I have recommend close follow-up with the bariatric dietitian to help with weight loss. Objective - Vital Signs Vital signs: Vital Signs Temp 98.2 F 09/09/17 17:14 Pulse 70 09/09/17 17:14 Resp 16 09/09/17 17:14 BP 179/89 09/09/17 17:14 Pulse Ox Intake & Output 09/08/17 09/09/17 09/09/17 18:59 06:59 18:59 Weight 131.542 kg
== END | disposition home or self-care (01) ==
LOC: BARWHC3 15:44
PROVIDERS: ATTEND Surgery Plastic and Reconstructive Surgery
DX: Z48.815 Encounter for surgical aftercare following surgery on the digestive system (principal); E66.01 Morbid (severe) obesity due to excess calories; K86.0 Alcohol-induced chronic pancreatitis; F10.20 Alcohol dependence, uncomplicated; K43.9 Ventral hernia without obstruction or gangrene; I10 Essential (primary) hypertension; G47.33 Obstructive sleep apnea (adult) (pediatric); K21.9 Gastro-esophageal reflux disease without esophagitis; M19.90 Unspecified osteoarthritis, unspecified site; Z68.41 Body mass index [BMI] 40.0-44.9, adult; Z71.3 Dietary counseling and surveillance; Z79.899 Other long term (current) drug therapy; Z90.49 Acquired absence of other specified parts of digestive tract; Z86.711 Personal history of pulmonary embolism; Z79.01 Long term (current) use of anticoagulants; Z98.890 Other specified postprocedural states; Z98.84 Bariatric surgery status
CPT/HCPCS: 99211

== ENCOUNTER 2017-11-12 11:14 | Emergency (ER) | payer MEDICARE, OTHER ==
[2017-11-12] MEDS ORDERED: RX INFO: IV CONTRAST WAS GIVEN 1 EACH MISC MISCELLANE PRN (11:51)
[2017-11-12] MEDS ORDERED: SODIUM CHLORIDE 0.9% 500 ML IV STA (11:51)
--- NOTE | 2017-11-12 12:29 | ED ---
General Adult HPI - General Chief complaint: Abdominal Pain Stated complaint: abdominal lump LLQ, poss hernia Time Seen by Provider: 11/12/17 11:40 Source: patient, RN notes reviewed Mode of arrival: ambulatory Limitations: no limitations - History of Present Illness Initial comments: 67-year-old male presents to the emergency department with a chief complaint of bulge to the abdomen. He states his long history of hernias but hedidn't fall starting today. Patient states it's tender to touch but he is able to reduce it. His doctor is Dr. Azul. He called her office however she is currently out until the middle of November. He denies any nausea vomiting fever or chills. He denies any cough cold runny nose with this. He was concerned due to the continued discomfort so he thought that he should be seen. Patient denies any recent fever, chills, shortness of breath, chest pain, back pain, nausea vomiting, numbness or tingling, dysuria or hematuria, constipation or diarrhea, headaches or visual changes, or any other current symptoms. - Related Data Home Medications Medication Instructions Recorded Confirmed Allopurinol [Zyloprim] 300 mg PO DAILY 02/22/14 11/12/17 Cholecalciferol [Vitamin D3] 5,000 unit PO DAILY 07/26/14 11/12/17 Calcium Carbonate/Vitamin D3 1 tab PO DAILY 05/07/16 11/12/17 [Calcium 600-Vit D3 400 Caplet] Metoprolol Tartrate [Lopressor] 25 mg PO BID 06/28/17 11/12/17 Apixaban [Eliquis] 5 mg PO BID 11/12/17 11/12/17 Thiamine [Vitamin B-1] 100 mg PO DAILY 11/12/17 11/12/17 amLODIPine [Norvasc] 5 mg PO DAILY 11/12/17 11/12/17 Previous Rx's Medication Instructions Recorded Cyanocobalamin [Vitamin B-12] 1,000 mcg PO DAILY@1200 #60 tablet 12/23/16 Multivitamin [Men's Multi-Vitamin] 1 tab PO DAILY #30 07/01/17 Allergies Allergy/AdvReac Type Severity Reaction Status Date / Time No Known Allergies Allergy Verified 11/12/17 12:04 Review of Systems ROS Statement: Those systems with pertinent positive or pertinent negative responses have been documented in the HPI. ROS Other: All systems not noted in ROS Statement are negative. Past Medical History Past Medical History: Atrial Fibrillation, Blood Disorder, Osteoarthritis (OA), Pulmonary Embolus (PE) Additional Past Medical History / Comment(s): PANCREATITIS. DIVERTICULITIS. Gout. Cyst on kidney. Hx. of a pneumothorax after a past surg. History of Any Multi-Drug Resistant Organisms: None Reported Past Surgical History: Bariatric Surgery, Bowel Resection, Cholecystectomy, Hernia Repair, Joint Replacement Additional Past Surgical History / Comment(s): COLONOSOCPY , 05-09-16 LAP EMA/LYSIS OF ADHESIONS,Bowel resection w/colostomy, then had reversed. Left knee replacement. Paraesophageol hiatal hernia repair. Lysis of adhesions. Excision of mediastinal mass. Gastric sleeve converted to darrell en y- aug 21, 2014. Past Anesthesia/Blood Transfusion Reactions: No Reported Reaction Past Psychological History: No Psychological Hx Reported Smoking Status: Former smoker Past Alcohol Use History: Occasional Past Drug Use History: None Reported - Past Family History Father Family Medical History: Myocardial Infarction ([place]) Additional Family Medical History / Comment(s): from [place], emphysema Mother Family Medical History: Cancer Additional Family Medical History / Comment(s): ovarian Sister(s) Family Medical History: Cancer Additional Family Medical History / Comment(s): breast, has heart problems- defibrillator General Exam - General Exam Comments Initial Comments: General: The patient is awake and alert, in no distress, and does not appear acutely ill. Eye: Pupils are equal, round and reactive to light, extra-ocular movements are intact; there is normal conjunctiva bilaterally. No signs of icterus. Ears, nose, mouth and throat: There are moist mucous membranes. Neck: The neck is supple, there is no tenderness. Cardiovascular: There is a regular rate and rhythm. No murmur, rub or gallop is appreciated. Respiratory: Lungs are clear to auscultation, respirations are non-labored, breath sounds are equal. No wheezes, stridor, rales, or rhonchi. Gastrointestinal: Patient does appear to have 3 reducible hernias to the anterior abdomen. Soft, non-distended, non-tender abdomen without masses or organomegaly noted. There is no rebound or guarding present. No CVA tenderness. Bowel sounds are unremarkable. Back: There is no tenderness to palpation in the midline. There is no obvious deformity. No rashes noted. Musculoskeletal: Normal ROM, no tenderness, There is no pedal edema. There is no calf tenderness or swelling. Sensation intact. Pulses equal bilaterally 2+. Neurological: CN II-XII intact, There are no obvious motor or sensory deficits. Coordination appears grossly intact. Speech is normal. Skin: Skin is warm and dry and no rashes or lesions are noted. Psychiatric: Cooperative, appropriate mood & affect, normal judgment. Limitations: no limitations Course Vital Signs 11/12/17 11/12/17 11:35 13:27 Temperature 98.6 F Pulse Rate 70 63 Respiratory 20 18 Rate Blood Pressure 158/72 149/70 O2 Sat by Pulse 97 98 Oximetry Medical Decision Making - Medical Decision Making 67-year-old male presents for abdominal pain associated with reducible hernia. Pain completely improved when patient was laid flat to test if the hernias were reducible. Lab work and imaging has been reviewed. Patient does have a low white blood cell, however he does have a history of this. At this time we discussed needs follow-up with a surgeon for continued care. We discussed return parameters all questions. The patient stated that he understood and he is agreement this plan. All questions have been answered. He will be discharged. - Lab Data Result diagrams: 11/12/17 12:09 11/12/17 12:09 Lab Results 11/12/17 11/12/17 11/12/17 Range/Units 12:09 12:09 12:17 WBC 3.1 L (3.8-10.6) k/uL RBC 4.27 L (4.30-5.90) m/uL Hgb 12.1 L (13.0-17.5) gm/dL Hct 39.4 (39.0-53.0) % MCV 92.2 (80.0-100.0) fL MCH 28.3 (25.0-35.0) pg MCHC 30.7 L (31.0-37.0) g/dL RDW 15.9 H (11.5-15.5) % Plt Count 216 (150-450) k/uL Neutrophils % 61 % Lymphocytes % 21 % Monocytes % 9 % Eosinophils % 4 % Basophils % 1 % Neutrophils # 1.9 (1.3-7.7) k/uL Lymphocytes # 0.6 L (1.0-4.8) k/uL Monocytes # 0.3 (0-1.0) k/uL Eosinophils # 0.1 (0-0.7) k/uL Basophils # 0.0 (0-0.2) k/uL Sodium 141 (137-145) mmol/L Potassium 4.0 (3.5-5.1) mmol/L Chloride 104 (98-107) mmol/L Carbon Dioxide 27 (22-30) mmol/L Anion Gap 10 mmol/L BUN 16 (9-20) mg/dL Creatinine 0.93 (0.66-1.25) mg/dL Est GFR (MDRD) Af Amer >60 (>60 ml/min/1.73 sqM) Est GFR (MDRD) Non-Af >60 (>60 ml/min/1.73 sqM) Glucose 107 H (74-99) mg/dL Calcium 9.2 (8.4-10.2) mg/dL Total Bilirubin 0.6 (0.2-1.3) mg/dL AST 26 (17-59) U/L ALT 24 (21-72) U/L Alkaline Phosphatase 144 H (38-126) U/L Total Protein 6.5 (6.3-8.2) g/dL Albumin 3.5 (3.5-5.0) g/dL Urine Color Yellow Urine Appearance Clear (Clear) Urine pH 5.5 (5.0-8.0) Ur Specific Zahl 1.021 (1.001-1.035) Urine Protein 1+ H (Negative) Urine Glucose (UA) Negative (Negative) Urine Ketones Negative (Negative) Urine Blood Negative (Negative) Urine Nitrite Negative (Negative) Urine Bilirubin Negative (Negative) Urine Urobilinogen <2.0 (<2.0) mg/dL Ur Leukocyte Esterase Negative (Negative) Urine RBC <1 (0-5) /hpf Urine WBC <1 (0-5) /hpf Ur Squamous Epith Cells <1 (0-4) /hpf Urine Bacteria Rare H (None) /hpf Hyaline Casts 3 H (0-2) /lpf Urine Mucus Rare H (None) /hpf - Radiology Data Radiology results: report reviewed, image reviewed Disposition Clinical Impression: Hernia of abdominal wall, Enlarged prostate Disposition: HOME SELF-CARE Condition: Stable Instructions: Ventral Hernia (ED) Additional Instructions: Please use medication as discussed. Please follow up with family doctor if symptoms have not improved over the next two days. Please return to the emergency room if your symptoms increase or worsen or for any other concerns. Referrals: Rebekah Hood DO [Primary Care Provider] - 1-2 days Krystina Vasquez MD [STAFF PHYSICIAN] - 1-2 days Time of Disposition: 13:58
[2017-11-12 12:33] LABS: Basophils % (A) 1 %; Eosinophils # (A) 0.1 k/uL (0-0.7); Eosinophils % (A) 4 %; HCT 39.4 % (39.0-53.0); HGB 12.1 gm/dL (13.0-17.5); Lymphocytes # (A) 0.6 k/uL (1.0-4.8); Lymphocytes % (A) 21 %; MCH 28.3 pg (25.0-35.0); MCHC 30.7 g/dL (31.0-37.0); MCV 92.2 fL (80.0-100.0); Mean Platelet Volume 8.1; Monocytes # (A) 0.3 k/uL (0-1.0); Monocytes % (A) 9 %; Neutrophils # (A) 1.9 k/uL (1.3-7.7); Neutrophils % (A) 61 %; Platelet Count 216 k/uL (150-450); RBC 4.27 m/uL (4.30-5.90); RDW 15.9 % (11.5-15.5); WBC 3.1 k/uL (3.8-10.6)
[2017-11-12 12:37] LABS: Appearance,Urine Clear (Clear); Bacteria,Urine Rare /hpf; Bilirubin,Urine Negative (Negative); Blood,Urine Negative (Negative); Color,Urine Yellow; Glucose,Urine (UA) Negative (Negative); Hyaline Casts,Urine 3 /lpf (0-2); Ketones,Urine Negative (Negative); Leukocyte Esterase,Urine Negative (Negative); Mucus,Urine Rare /hpf; Nitrite,Urine Negative (Negative); PH, Urine 5.5 (5.0-8.0); Protein,Urine 1+ (Negative); RBC,Urine <1 /hpf (0-5); Specific Gravity,Urine 1.021 (1.001-1.035); Squamous Epithelial Cell,Urine <1 /hpf (0-4); Urobilinogen,Urine <2.0 mg/dL (<2.0); WBC,Urine <1 /hpf (0-5)
[2017-11-12 12:47] LABS: ALT 24 U/L (21-72); AST 26 U/L (17-59); Albumin 3.5 g/dL (3.5-5.0); Alkaline Phosphatase 144 U/L (38-126); Anion Gap 10 mmol/L; Blood Urea Nitrogen 16 mg/dL (9-20); Calcium 9.2 mg/dL (8.4-10.2); Carbon Dioxide 27 mmol/L (22-30); Chloride 104 mmol/L (98-107); Glucose 107 mg/dL (74-99); Sodium 141 mmol/L (137-145); Total Bilirubin 0.6 mg/dL (0.2-1.3); Total Protein 6.5 g/dL (6.3-8.2)
[2017-11-12 13:29] VITALS: RESP 18
--- NOTE | 2017-11-12 13:57 | CT ---
EXAMINATION TYPE: CT abdomen pelvis w con DATE OF EXAM: 11/12/2017 COMPARISON: 08/27/2017 HISTORY: 67-year-old male Left lower quadrant bulging. TECHNIQUE: Contiguous axial scanning of the abdomen and pelvis following administration of 100 ml Omn ipaque 300 IV contrast. Delayed images through the kidneys and coronal/sagittal reconstructions perf ormed. CT DLP: 1784 mGycm Automated exposure control for dose reduction was used. FINDINGS: Heart is upper limits of normal in size without pericardial effusion. Prominent pleural parenchymal s carring peripheral right base and inferior lingular. Chronic healed rib fracture deformities posterol ateral right hemithorax. Small hiatal hernia. Post surgical changes appear to relate to [place]-en-Y gastric bypass. Limited degree of solid organ opacification probably due to timing. No focal liver lesions seen. No b iliary ductal dilatation. Orbital venous system appears patent Cholecystectomy clips are present. Small indeterminate 1.6 cm nodule is present along the right adrenal gland, unchanged, statistically representing a benign adrenal. Pancreas is atrophic but otherwise unremarkable. Previously seen peripancreatic inflammation has reso lved. Bilateral renal cortical cysts are redemonstrated measuring up to 2.1 cm posterior lower pole on the right. Nonobstructive 6 mm calcification left mid pole. No dilated small bowel, free fluid, or free air. Mild strandy mesenteric edema is present. No mesente didier or retroperitoneal lymphadenopathy. There is diffuse laxity of the midline anterior abdominal wall with bulging of the linea alba more fo suleiman in the supraumbilical region with a rectus diastases measuring up to 7.8 cm wide. Overall appea erika similar to prior exam. Right side of the colon is not clearly identified. There is sigmoid diverticulosis without pericoloni c inflammatory change. Bladder partially distended. Prostate gland is enlarged measuring 5.4 cm wide. Pelvic phleboliths are noted. No abnormal fluid collection in the pelvis or pelvic lymphadenopathy. Bones: Multilevel degenerative changes throughout the lumbar spine. Grade 1 retrolisthesis at L1-L2. No osseous destructive process seen. IMPRESSION: 1. DIFFUSE LAXITY OF THE MIDLINE VENTRAL ABDOMINAL WALL WITH RECTUS DIASTASIS MEASURING UP TO 7.8 CM WIDE AND ANTERIORLY BULGING OF INTRA-ABDOMINAL CONTENTS. OVERALL APPEARANCE IS SIMILAR TO 08/27/2017. NO OBSTRUCTIVE CHANGES. 2. PREVIOUS PANCREATITIS APPEARS TO HAVE RESOLVED. 3. SIGMOID DIVERTICULOSIS WITHOUT ACUTE DIVERTICULITIS. 4. PROSTATOMEGALY (5.4 CM WIDE). 5. SMALL HIATAL HERNIA AND POSTSURGICAL CHANGES WHICH APPEAR TO RELATE TO IVR[place]-EN-Y GASTRIC BYPASS.
[2017-11-12 14:28] VITALS: BP 146/73; PULSE 69; TEMP 97.3
== END 2017-11-12 14:26 | disposition home or self-care (01) ==
LOC: EC 11:14
DX: K43.9 Ventral hernia without obstruction or gangrene (principal); N40.0 Benign prostatic hyperplasia without lower urinary tract symptoms; D72.819 Decreased white blood cell count, unspecified; I48.91 Unspecified atrial fibrillation; M10.9 Gout, unspecified; Z87.891 Personal history of nicotine dependence; Z79.01 Long term (current) use of anticoagulants; Z79.899 Other long term (current) drug therapy; Z86.711 Personal history of pulmonary embolism; Z90.49 Acquired absence of other specified parts of digestive tract
CPT/HCPCS: 36415; 80053; 85025; 81001; 74177; 99284; 96360; Q9967

== ENCOUNTER 2018-03-05 07:20 | Inpatient (IN) | payer MEDICARE, OTHER ==
[2018-03-05] MEDS ORDERED: MORPHINE SULFATE 2 MG/ML SYRINGE IV STA (07:40)
[2018-03-05] MEDS ORDERED: SODIUM CHLORIDE 0.9% 500 ML IV ONE (07:43)
--- NOTE | 2018-03-05 07:44 | ED ---
General Adult HPI - General Chief complaint: Abdominal Pain Stated complaint: Abdominal Pain Time Seen by Provider: 03/05/18 07:27 Source: patient, RN notes reviewed, old records reviewed Mode of arrival: ambulatory Limitations: no limitations - History of Present Illness Initial comments: 67-year-old male presents with 2 day history of generalized abdominal pain. Patient states he's had some increased bloating and abdominal distention. He did have an episode of diarrhea yesterday. Patient states he has been passing gas. No vomiting, no nausea. Patient's pain is dull in nature and throughout his entire abdomen. Denies any central chest pain, has had some upper abdominal pain which is difficult for him to distinguish from chest pain. No shortness of breath. No fever or chills. Patient is significant history including previous Darrell-en-Y, previous all resection for perforation. Cholecystectomy and multiple hernia repairs. Patient does admit to daily drinking. - Related Data Home Medications Medication Instructions Recorded Confirmed Allopurinol [Zyloprim] 300 mg PO DAILY 02/22/14 03/05/18 Cholecalciferol [Vitamin D3] 5,000 unit PO DAILY 07/26/14 03/05/18 Metoprolol Tartrate [Lopressor] 25 mg PO BID 06/28/17 03/05/18 Apixaban [Eliquis] 5 mg PO BID 11/12/17 03/05/18 Thiamine [Vitamin B-1] 100 mg PO DAILY 11/12/17 03/05/18 amLODIPine [Norvasc] 5 mg PO DAILY 11/12/17 03/05/18 Previous Rx's Medication Instructions Recorded Multivitamin [Men's Multi-Vitamin] 1 tab PO DAILY #30 07/01/17 Allergies Allergy/AdvReac Type Severity Reaction Status Date / Time No Known Allergies Allergy Verified 03/05/18 07:46 Review of Systems ROS Statement: Those systems with pertinent positive or pertinent negative responses have been documented in the HPI. ROS Other: All systems not noted in ROS Statement are negative. Past Medical History Past Medical History: Atrial Fibrillation, Blood Disorder, Osteoarthritis (OA), Pulmonary Embolus (PE) Additional Past Medical History / Comment(s): PANCREATITIS. DIVERTICULITIS. Gout. Cyst on kidney. Hx. of a pneumothorax after a past surg. History of Any Multi-Drug Resistant Organisms: None Reported Past Surgical History: Bariatric Surgery, Bowel Resection, Cholecystectomy, Hernia Repair, Joint Replacement Additional Past Surgical History / Comment(s): COLONOSOCPY , 05-09-16 LAP EMA/LYSIS OF ADHESIONS,Bowel resection w/colostomy, then had reversed. Left knee replacement. Paraesophageol hiatal hernia repair. Lysis of adhesions. Excision of mediastinal mass. Gastric sleeve converted to darrell en y- aug 21, 2014. Past Anesthesia/Blood Transfusion Reactions: No Reported Reaction Past Psychological History: No Psychological Hx Reported Smoking Status: Former smoker Past Alcohol Use History: Daily, Occasional Past Drug Use History: None Reported - Past Family History Father Family Medical History: Myocardial Infarction ([place]) Additional Family Medical History / Comment(s): from [place], emphysema Mother Family Medical History: Cancer Additional Family Medical History / Comment(s): ovarian Sister(s) Family Medical History: Cancer Additional Family Medical History / Comment(s): breast, has heart problems- defibrillator General Exam Limitations: no limitations General appearance: alert, in no apparent distress Head exam: Present: atraumatic, normocephalic Eye exam: Present: normal appearance, PERRL, EOMI ENT exam: Present: normal exam Neck exam: Present: normal inspection. Absent: tenderness, meningismus Respiratory exam: Present: normal lung sounds bilaterally. Absent: respiratory distress Cardiovascular Exam: Present: regular rate, normal rhythm GI/Abdominal exam: Present: soft, distended, tenderness, hernia (Multiple small reducible incisional hernias). Absent: guarding, rebound Extremities exam: Present: normal inspection, full ROM, pedal edema (trace). Absent: tenderness, normal capillary refill Neurological exam: Present: alert, oriented X3, CN II-XII intact. Absent: motor sensory deficit Psychiatric exam: Present: normal affect, normal mood Skin exam: Present: warm, dry, intact. Absent: cyanosis, diaphoretic Course Vital Signs 03/05/18 03/05/18 03/05/18 07:22 08:24 09:19 Temperature 98.5 F Pulse Rate 111 H 65 80 Respiratory 18 18 18 Rate Blood Pressure 142/76 139/67 163/83 O2 Sat by Pulse 98 97 98 Oximetry EKG Findings - EKG Comments: EKG Findings:: EKG: Sinus rhythm with occasional PVC, rate of 81, GA interval 178, QRS duration 80, QTC 450 Medical Decision Making - Medical Decision Making 67-year-old male presenting with generalized abdominal pain worse in the upper abdomen with distention. Laboratory studies are obtained, normal white blood cell count, stable hemoglobin, lipase is significantly elevated at 5200, amylase also elevated, lactic acid is normal. X-rays obtained, does show ileus with no obstruction. CT obtained shows inflammation of the pancreas consistent with acute pancreatitis. Given the persistent symptoms and significantly elevated lipase patient will be admitted for IV hydration and pain control. - Lab Data Result diagrams: 03/05/18 07:52 03/05/18 07:52 Lab Results 03/05/18 03/05/18 03/05/18 Range/Units 07:52 07:52 07:52 WBC 4.8 (3.8-10.6) k/uL RBC 4.34 (4.30-5.90) m/uL Hgb 12.1 L (13.0-17.5) gm/dL Hct 37.8 L (39.0-53.0) % MCV 87.2 (80.0-100.0) fL MCH 27.8 (25.0-35.0) pg MCHC 31.9 (31.0-37.0) g/dL RDW 16.8 H (11.5-15.5) % Plt Count 250 (150-450) k/uL Neutrophils % 74 % Lymphocytes % 14 % Monocytes % 8 % Eosinophils % 2 % Basophils % 0 % Neutrophils # 3.5 (1.3-7.7) k/uL Lymphocytes # 0.7 L (1.0-4.8) k/uL Monocytes # 0.4 (0-1.0) k/uL Eosinophils # 0.1 (0-0.7) k/uL Basophils # 0.0 (0-0.2) k/uL Anisocytosis Slight PT (9.0-12.0) sec INR (<1.2) APTT (22.0-30.0) sec Sodium 138 (137-145) mmol/L Potassium 3.7 (3.5-5.1) mmol/L Chloride 103 (98-107) mmol/L Carbon Dioxide 26 (22-30) mmol/L Anion Gap 9 mmol/L BUN 14 (9-20) mg/dL Creatinine 0.89 (0.66-1.25) mg/dL Est GFR (CKD-EPI)AfAm >90 (>60 ml/min/1.73 sqM) Est GFR (CKD-EPI)NonAf 89 (>60 ml/min/1.73 sqM) Glucose 112 H (74-99) mg/dL Plasma Lactic Acid Sung 1.3 (0.7-2.0) mmol/L Calcium 9.0 (8.4-10.2) mg/dL Total Bilirubin 0.9 (0.2-1.3) mg/dL AST 46 (17-59) U/L ALT 41 (21-72) U/L Alkaline Phosphatase 158 H (38-126) U/L Troponin I (0.000-0.034) ng/mL Total Protein 5.6 L (6.3-8.2) g/dL Albumin 2.9 L (3.5-5.0) g/dL Amylase 304 H* (30-110) U/L Lipase 5233 H (23-300) U/L 03/05/18 03/05/18 Range/Units 07:52 07:52 WBC (3.8-10.6) k/uL RBC (4.30-5.90) m/uL Hgb (13.0-17.5) gm/dL Hct (39.0-53.0) % MCV (80.0-100.0) fL MCH (25.0-35.0) pg MCHC (31.0-37.0) g/dL RDW (11.5-15.5) % Plt Count (150-450) k/uL Neutrophils % % Lymphocytes % % Monocytes % % Eosinophils % % Basophils % % Neutrophils # (1.3-7.7) k/uL Lymphocytes # (1.0-4.8) k/uL Monocytes # (0-1.0) k/uL Eosinophils # (0-0.7) k/uL Basophils # (0-0.2) k/uL Anisocytosis PT 10.2 (9.0-12.0) sec INR 1.0 (<1.2) APTT 22.1 (22.0-30.0) sec Sodium (137-145) mmol/L Potassium (3.5-5.1) mmol/L Chloride (98-107) mmol/L Carbon Dioxide (22-30) mmol/L Anion Gap mmol/L BUN (9-20) mg/dL Creatinine (0.66-1.25) mg/dL Est GFR (CKD-EPI)AfAm (>60 ml/min/1.73 sqM) Est GFR (CKD-EPI)NonAf (>60 ml/min/1.73 sqM) Glucose (74-99) mg/dL Plasma Lactic Acid Sung (0.7-2.0) mmol/L Calcium (8.4-10.2) mg/dL Total Bilirubin (0.2-1.3) mg/dL AST (17-59) U/L ALT (21-72) U/L Alkaline Phosphatase (38-126) U/L Troponin I <0.012 (0.000-0.034) ng/mL Total Protein (6.3-8.2) g/dL Albumin (3.5-5.0) g/dL Amylase (30-110) U/L Lipase (23-300) U/L Disposition Clinical Impression: ETOH abuse, Pancreatitis, acute Disposition: ADMITTED IP TO THIS [facility] Condition: Stable Is patient prescribed a controlled substance at d/c from ED?: No Referrals: Rebekah Hood DO [Primary Care Provider] - 1-2 days Time of Disposition: 09:36 Decision to Admit Reason: Admit from EC Decision Date: 03/05/18 Decision Time: 09:36
[2018-03-05 08:07] LABS: Anisocytosis Slight; Basophils % (A) 0 %; Eosinophils # (A) 0.1 k/uL (0-0.7); Eosinophils % (A) 2 %; HCT 37.8 % (39.0-53.0); HGB 12.1 gm/dL (13.0-17.5); Lymphocytes # (A) 0.7 k/uL (1.0-4.8); Lymphocytes % (A) 14 %; MCH 27.8 pg (25.0-35.0); MCHC 31.9 g/dL (31.0-37.0); MCV 87.2 fL (80.0-100.0); Mean Platelet Volume 8.2; Monocytes # (A) 0.4 k/uL (0-1.0); Monocytes % (A) 8 %; Neutrophils # (A) 3.5 k/uL (1.3-7.7); Neutrophils % (A) 74 %; Platelet Count 250 k/uL (150-450); RBC 4.34 m/uL (4.30-5.90); RDW 16.8 % (11.5-15.5); WBC 4.8 k/uL (3.8-10.6)
[2018-03-05 08:16] LABS: ALT 41 U/L (21-72); AST 46 U/L (17-59); Albumin 2.9 g/dL (3.5-5.0); Alkaline Phosphatase 158 U/L (38-126); Anion Gap 9 mmol/L; Blood Urea Nitrogen 14 mg/dL (9-20); Carbon Dioxide 26 mmol/L (22-30); Chloride 103 mmol/L (98-107); Glucose 112 mg/dL (74-99); Partial Thromboplastin Time 22.1 sec (22.0-30.0); Potassium 3.7 mmol/L (3.5-5.1); Prothrombin Time 10.2 sec (9.0-12.0); Sodium 138 mmol/L (137-145); Total Bilirubin 0.9 mg/dL (0.2-1.3); Total Protein 5.6 g/dL (6.3-8.2)
[2018-03-05 08:20] LABS: Amylase 304 U/L (30-110)
--- NOTE | 2018-03-05 08:23 | XR ---
EXAMINATION TYPE: XR KUB DATE OF EXAM: 03/05/2018 CLINICAL HISTORY: Lower abdominal pain and diarrhea. History of Bibi-en-Y bowel resection. TECHNIQUE: Single view of the abdomen was obtained. COMPARISON: None. FINDINGS: There are few prominent and mildly dilated loops of air-filled small bowel within the left mid abdomen measuring up to 4.7 cm. Few air-fluid levels are seen with no differential air-fluid leve ls. Scattered surgical clips are seen throughout the abdomen. Gas and fecal material is seen in non-d ilated colon. There is no visceromegaly, pneumoperitoneum, or abnormal calcification appreciated. The lung bases are clear and the osseous structures are intact. IMPRESSION: Few prominent loops of small bowel and mildly dilated small bowel favoring ileus.
[2018-03-05 08:52] LABS: Lipase 5233 U/L (23-300)
[2018-03-05] MEDS ORDERED: MORPHINE SULFATE 2 MG/ML SYRINGE IVP STA (09:01)
--- NOTE | 2018-03-05 09:30 | CT ---
EXAMINATION TYPE: CT abdomen pelvis w con DATE OF EXAM: 03/05/2018 COMPARISON: NONE INDICATION: Abdominal pain worsening x1 day DLP: 2900.1 mGycm, Automated exposure control for dose reduction was used. CONTRAST: 100 mL of Isovue 300. Study performed without Oral Contrast TECHNIQUE: Axial images were obtained from above the diaphragm to the pubic rami in the axial plane a t 5 mm thick sections. Reconstructed images are reviewed on the computer in the coronal plane. FINDINGS: Limited CT sections are obtained the lung bases. Old right posterior rib fractures are evident. Some adjacent pleural thickening and/or atelectasis is present within the right lung base.. CT ABDOMEN: Postsurgical changes are within the stomach. Liver: Normal Spleen: Normal Pancreas: Some mild inflammatory changes adjacent to the body and tail of the pancreas. Correlate for acute pancreatitis. Adrenal glands: Right adrenal gland has some nodularity measuring 1.7 cm. Left adrenal gland appears normal. Gallbladder: Surgically absent. Kidneys: No masses are evident. No hydronephrosis is present. No cysts are present. There is a 0.4 cm mid left renal calcification without obstruction. There is an exophytic cyst on the posterior inf erior right kidney measuring 2.1 cm and 14 Hounsfield units. Small exophytic cyst is on the lateral m id left kidney measuring 1.6 cm and 0 Hounsfield units. Postcontrast imaging through the kidneys appe ars unremarkable. Aorta: Vascular calcification is within the aorta. Inferior vena cava: Normal. CT PELVIS: There is been a right hemicolectomy. Anastomosis in the epigastric region is evident. Studies without oral contrast limiting bowel loop evaluation. Anterior abdominal wall hernia in the periumbilical re gion contains loops of bowel without evidence of obstruction. Appendix: Normal as visualized. Urinary bladder: Normal. Genitourinary structures: Prostate is slightly prominent. Osseous structures: No suspicious lytic or sclerotic lesions. IMPRESSIONS: 1. Inflammatory changes adjacent to the body and tail of the pancreas and to a lesser degree adjacen t to the posterior head of the pancreas suggestive for acute pancreatitis. Clinical correlation recom mended.
[2018-03-05] MEDS ORDERED: LORazepam 2 MG/ML INJ IV PRN ×3 (09:37)
[2018-03-05] MEDS ORDERED: NALOXONE 0.4 MG/ML 1 ML VIAL IV PRN (09:37)
[2018-03-05] MEDS ORDERED: ONDANSETRON 4 MG/2 ML VIAL IVP PRN (09:37)
[2018-03-05] MEDS: SODIUM CHLORIDE 0.9% 1,000 ML IV SCH (09:52)
[2018-03-05] MEDS ORDERED: PNEUMOCOCCAL VACC-PNEUMOVAX 23 25 MCG/0.5 ML VIAL IM ONE (10:40)
[2018-03-05 11:05] LABS: Appearance,Urine Clear (Clear); Bilirubin,Urine Negative (Negative); Blood,Urine Negative (Negative); Color,Urine Yellow; Glucose,Urine (UA) Negative (Negative); Ketones,Urine 2+ (Negative); Leukocyte Esterase,Urine Negative (Negative); Nitrite,Urine Negative (Negative); PH, Urine 5.5 (5.0-8.0); Protein,Urine Trace (Negative)
[2018-03-05] MEDS: MORPHINE SULFATE 2 MG/ML SYRINGE IV PRN ×3 (13:00→21:27)
--- NOTE | 2018-03-05 13:34 | P.HPIM ---
History of Present Illness 67-year-old gentleman came in with comments of 2 day history of generalized abdominal pain sharp in nature diffusely in the abdomen found to have elevated lipase. Patient has known history of chronic pancreatitis in the past. Patient quit drinking alcohol perfume and started drinking again last Thursday for her daughter's graduation and did drink last 4 out of 6 days. Patient was also having some diarrhea which resolved at this point of time patient has multiple abdominal surgeries in the past with ventral hernias. Patient had a Bibi-en-Y bypass surgery and patient does have history of atrial fibrillation on anti-correlation at this time patient had a cholecystectomy in the past patient denied any fever chills was having nausea. Review of Systems REVIEW OF SYSTEMS: CONSTITUTIONAL: No fever, no malaise, no fatigue. HEENT: No recent visual problems or hearing problems. Denied any sore throat. CARDIOVASCULAR: No chest pain, orthopnea, PND, no palpitations, no syncope. PULMONARY: No shortness of breath, no cough, no hemoptysis. GASTROINTESTINAL: As mentioned in HPI NEUROLOGICAL: No headaches, no weakness, no numbness. HEMATOLOGICAL: Denies any bleeding or petechiae. GENITOURINARY: Denies any burning micturition, frequency, or urgency. MUSCULOSKELETAL/RHEUMATOLOGICAL: Denies any joint pain, swelling, or any muscle pain. ENDOCRINE: Denies any polyuria or polydipsia. The rest of the 14-point review of systems is negative. Past Medical History Past Medical History: Atrial Fibrillation, Blood Disorder, Cancer, GERD/Reflux, Osteoarthritis (OA), Pulmonary Embolus (PE) Additional Past Medical History / Comment(s): Afib/RVR, pulmonary embolism L lung, pancreatitis multiple times, ETOH abuse, recent diagnosed with R renal carcinoma with sx, BPH, past R lung pneumo with chest tube, diverticulitis, benign colon polyps, arthritis multiple joints, abdominal hernias. History of Any Multi-Drug Resistant Organisms: None Reported Past Surgical History: Bariatric Surgery, Bowel Resection, Cholecystectomy, Hernia Repair, Joint Replacement Additional Past Surgical History / Comment(s): Recent (2017) r kidney lesion cryoablation at [facility], 2013 bowel resection d/t viscus perf with colostomy later reversed , gastric sleeve converted to bibi-en-Y 08/2014-post op wound infection, paraesphogeal hiat hernia repair, R inguinal and umbilical hernia repairs, colonoscopies, L total knee arthroplasty. Past Anesthesia/Blood Transfusion Reactions: No Reported Reaction Smoking Status: Former smoker - Past Family History Father Family Medical History: COPD, Myocardial Infarction ([place]) Additional Family Medical History / Comment(s): Father from a CO at the age of 69yrs. Mother Family Medical History: Cancer Additional Family Medical History / Comment(s): Mother from ovarian cancer at the age of 69yrs. Sister(s) Family Medical History: Cancer Additional Family Medical History / Comment(s): at age 74yrs. Had breast cancer and a defibrillator Medications and Allergies Home Medications Medication Instructions Recorded Confirmed Type Allopurinol [Zyloprim] 300 mg PO DAILY 02/22/14 03/05/18 History Cholecalciferol [Vitamin D3] 5,000 unit PO DAILY 07/26/14 03/05/18 History Metoprolol Tartrate [Lopressor] 25 mg PO BID 06/28/17 03/05/18 History Multivitamin [Men's Multi-Vitamin] 1 tab PO DAILY #30 07/01/17 03/05/18 Rx Apixaban [Eliquis] 5 mg PO BID 11/12/17 03/05/18 History Thiamine [Vitamin B-1] 100 mg PO DAILY 11/12/17 03/05/18 History amLODIPine [Norvasc] 5 mg PO DAILY 11/12/17 03/05/18 History Allergies Allergy/AdvReac Type Severity Reaction Status Date / Time No Known Allergies Allergy Verified 03/05/18 07:46 Physical Exam Vitals: Vital Signs Temp Pulse Pulse Resp BP BP Pulse Ox 03/05/18 10:50 98.5 F 83 18 129/72 96 03/05/18 09:54 98.5 F 74 18 153/77 98 03/05/18 09:19 80 18 163/83 98 03/05/18 08:24 65 18 139/67 97 03/05/18 07:22 98.5 F 111 H 18 142/76 98 Intake and Output 03/04/18 03/05/18 03/05/18 22:59 06:59 14:59 Other: Voiding Method Toilet Urinal Weight 131.542 kg PHYSICAL EXAMINATION: GENERAL: The patient is alert and oriented x3, not in any acute distress. Well developed, well nourished. HEENT: Pupils are round and equally reacting to light. EOMI. No scleral icterus. No conjunctival pallor. Normocephalic, atraumatic. No pharyngeal erythema. No thyromegaly. CARDIOVASCULAR: S1 and S2 present. No murmurs, rubs, or gallops. PULMONARY: Chest is clear to auscultation, no wheezing or crackles. ABDOMEN: Patient has minimal epigastric abdominal tenderness multiple abdominal surgeries and ventral hernias. Abdomen is distended no rebound or rigidity MUSCULOSKELETAL: No joint swelling or deformity. EXTREMITIES: No cyanosis, clubbing, or pedal edema. NEUROLOGICAL: Gross neurological examination did not reveal any focal deficits. SKIN: No rashes. Results CBC & Chem 7: 03/05/18 07:52 03/05/18 07:52 Labs: Abnormal Lab Results - Last 24 Hours (Table) 03/05/18 03/05/18 03/05/18 Range/Units 07:52 07:52 10:55 Hgb 12.1 L (13.0-17.5) gm/dL Hct 37.8 L (39.0-53.0) % RDW 16.8 H (11.5-15.5) % Lymphocytes # 0.7 L (1.0-4.8) k/uL Glucose 112 H (74-99) mg/dL Alkaline Phosphatase 158 H (38-126) U/L Total Protein 5.6 L (6.3-8.2) g/dL Albumin 2.9 L (3.5-5.0) g/dL Amylase 304 H* (30-110) U/L Lipase 5233 H (23-300) U/L Ur Specific [place] 1.050 H (1.001-1.035) Urine Protein Trace H (Negative) Urine Ketones 2+ H (Negative) Thrombosis Risk Factor Assmnt - Choose All That Apply Any of the Below Risk Factors Present?: Yes Each Factor Represents 1 point: Obesity (BMI >25) Other Risk Factors: Yes Each Risk Factor Represents 2 Points: Age 61-74 years, Malignancy Each Risk Factor Represents 3 Points: History of DVT/PE Other congenital or acquired thrombophilia - If yes, enter type in comment: No Thrombosis Risk Factor Assessment Total Risk Factor Score: 8 Thrombosis Risk Factor Assessment Level: High Risk Assessment and Plan Plan: -Alcoholic pancreatitis: Patient will remain nothing by mouth today except for medications, bowel rest IV fluids. -Alcohol abuse: Counseling was provided since he recently started drinking alcohol I do not believe he'll have withdrawals at this time, we'll monitor for any withdrawals. -Atrial fibrillation: Rate controlled continue with his metoprolol continue with has anticoagulation -Hypertension -Gastroesophageal reflux disease -Multiple abdominal hernias
[2018-03-05] MEDS: APIXABAN 5 MG TAB PO SCH (21:22)
[2018-03-05] MEDS: METOPROLOL TARTRATE 25 MG TAB PO SCH (21:22)
[2018-03-05] MEDS: ZOLPIDEM 5 MG TAB PO PRN (23:13)
[2018-03-06] MEDS: MORPHINE SULFATE 2 MG/ML SYRINGE IV PRN ×4 (02:19→21:29)
[2018-03-06] MEDS: SODIUM CHLORIDE 0.9% 1,000 ML IV SCH ×3 (05:40→16:18)
[2018-03-06 08:21] LABS: Anisocytosis Slight; Basophils % (A) 0 %; Eosinophils # (A) 0.1 k/uL (0-0.7); Eosinophils % (A) 2 %; HCT 36.2 % (39.0-53.0); HGB 11.4 gm/dL (13.0-17.5); Hypochromasia Slight; Lymphocytes # (A) 0.5 k/uL (1.0-4.8); Lymphocytes % (A) 10 %; MCH 28.7 pg (25.0-35.0); MCHC 31.5 g/dL (31.0-37.0); MCV 91.1 fL (80.0-100.0); Mean Platelet Volume 7.4; Monocytes # (A) 0.4 k/uL (0-1.0); Monocytes % (A) 8 %; Neutrophils # (A) 3.9 k/uL (1.3-7.7); Neutrophils % (A) 77 %; Platelet Count 214 k/uL (150-450); RBC 3.98 m/uL (4.30-5.90); RDW 17.6 % (11.5-15.5)
[2018-03-06] MEDS: APIXABAN 5 MG TAB PO SCH ×2 (09:32→21:25)
[2018-03-06] MEDS: amLODIPine 5 MG TAB PO SCH (09:32)
[2018-03-06] MEDS: METOPROLOL TARTRATE 25 MG TAB PO SCH ×2 (09:32→21:24)
[2018-03-06 09:36] LABS: ALT 151 U/L (21-72); AST 349 U/L (17-59); Albumin 2.6 g/dL (3.5-5.0); Alkaline Phosphatase 442 U/L (38-126); Anion Gap 8 mmol/L; Blood Urea Nitrogen 9 mg/dL (9-20); Calcium 8.8 mg/dL (8.4-10.2); Carbon Dioxide 26 mmol/L (22-30); Chloride 106 mmol/L (98-107); Glucose 81 mg/dL (74-99); Lipase 1369 U/L (23-300); Magnesium 1.7 mg/dL (1.6-2.3); Potassium 3.8 mmol/L (3.5-5.1); Sodium 140 mmol/L (137-145); Total Bilirubin 4.1 mg/dL (0.2-1.3); Total Protein 5.3 g/dL (6.3-8.2)
--- NOTE | 2018-03-06 16:15 | P.PN ---
Subjective Patient was admitted for alcoholic pancreatitis pain improved will start him on diet advance as tolerated. Patient will remain on clear liquid diet today. We' ll repeat the lipase and tomorrow which is significant improved today and will patient appears to have alcoholic hepatitis with repeat liver enzymes tomorrow. Constitutional: Denied any fatigue denied any fever. Cardio vascular: denied any chest pain, palpitations Gastrointestinal denied any nausea vomiting, abdominal pain improved significantly compared to yesterday. Pulmonary: Denied any shortness of breath cough Neurologic denied any new focal deficits Objective - Vital Signs Vital signs: Vital Signs Temp 98.8 F 03/06/18 15:00 Pulse 80 03/06/18 15:00 Resp 20 03/06/18 15:00 BP 137/65 03/06/18 15:00 Pulse Ox 94 L 03/06/18 15:00 Intake & Output 03/05/18 03/06/18 03/06/18 18:59 06:59 18:59 Intake Total 0 800 Balance 0 800 Weight 131.542 kg Intake: IV 800 Sodium Chloride 0.9% 1, 800 000 ml @ 100 mls/hr IV . Q10H JESSY Rx#:[id number] Oral 0 Other: Voiding Method Toilet Urinal # Voids 2 1 1 - Exam PHYSICAL EXAMINATION: GENERAL: The patient is alert and oriented x3, not in any acute distress. Well developed, well nourished. HEENT: Pupils are round and equally reacting to light. EOMI. No scleral icterus. No conjunctival pallor. Normocephalic, atraumatic. No pharyngeal erythema. No thyromegaly. CARDIOVASCULAR: S1 and S2 present. No murmurs, rubs, or gallops. PULMONARY: Chest is clear to auscultation, no wheezing or crackles. ABDOMEN: Patient has minimal epigastric abdominal tenderness multiple abdominal surgeries and ventral hernias. Abdomen is distended no rebound or rigidity MUSCULOSKELETAL: No joint swelling or deformity. EXTREMITIES: No cyanosis, clubbing, or pedal edema. NEUROLOGICAL: Gross neurological examination did not reveal any focal deficits. SKIN: No rashes. - Labs CBC & Chem 7: 03/06/18 07:44 03/06/18 07:44 Labs: Abnormal Lab Results - Last 24 Hours (Table) 03/06/18 03/06/18 Range/Units 07:44 07:44 RBC 3.98 L (4.30-5.90) m/uL Hgb 11.4 L (13.0-17.5) gm/dL Hct 36.2 L (39.0-53.0) % RDW 17.6 H (11.5-15.5) % Lymphocytes # 0.5 L (1.0-4.8) k/uL Total Bilirubin 4.1 H (0.2-1.3) mg/dL AST 349 H (17-59) U/L ALT 151 H (21-72) U/L Alkaline Phosphatase 442 H (38-126) U/L Total Protein 5.3 L (6.3-8.2) g/dL Albumin 2.6 L (3.5-5.0) g/dL Lipase 1369 H (23-300) U/L Assessment and Plan Plan: -Alcoholic pancreatitis: Clear liquid diet, IV fluids -Acute alcoholic hepatitis: Monitor liver enzymes tomorrow -Alcohol abuse: Counseling was provided since he recently started drinking alcohol I do not believe he'll have withdrawals at this time, we'll monitor for any withdrawals. -Atrial fibrillation: Rate controlled continue with his metoprolol continue with has anticoagulation -Hypertension -Gastroesophageal reflux disease -Multiple abdominal hernias
[2018-03-07] MEDS: ZOLPIDEM 5 MG TAB PO PRN ×2 (00:05→21:55)
[2018-03-07] MEDS: SODIUM CHLORIDE 0.9% 1,000 ML IV SCH ×2 (02:16→12:06)
[2018-03-07] MEDS: MORPHINE SULFATE 2 MG/ML SYRINGE IV PRN ×3 (03:31→21:55)
[2018-03-07] MEDS: amLODIPine 5 MG TAB PO SCH (08:08)
[2018-03-07] MEDS: APIXABAN 5 MG TAB PO SCH ×2 (08:08→20:28)
[2018-03-07] MEDS: METOPROLOL TARTRATE 25 MG TAB PO SCH ×2 (08:08→20:28)
[2018-03-07 08:13] LABS: ALT 137 U/L (21-72); AST 204 U/L (17-59); Albumin 2.3 g/dL (3.5-5.0); Alkaline Phosphatase 471 U/L (38-126); Anion Gap 7 mmol/L; Anisocytosis Slight; Blood Urea Nitrogen 7 mg/dL (9-20); Calcium 8.5 mg/dL (8.4-10.2); Carbon Dioxide 26 mmol/L (22-30); Chloride 107 mmol/L (98-107); Cholesterol 98 mg/dL (<200); Glucose 89 mg/dL (74-99); HCT 33.1 % (39.0-53.0); HDL Cholesterol 41 mg/dL (40-60); HGB 10.7 gm/dL (13.0-17.5); Hypochromasia Slight; LDL Cholesterol,Calculated 45 mg/dL (0-99); MCH 28.8 pg (25.0-35.0); MCHC 32.4 g/dL (31.0-37.0); MCV 88.9 fL (80.0-100.0); Mean Platelet Volume 8.1; Platelet Count 202 k/uL (150-450); Potassium 3.6 mmol/L (3.5-5.1); RBC 3.72 m/uL (4.30-5.90); RDW 17.1 % (11.5-15.5); Sodium 140 mmol/L (137-145); Total Protein 4.7 g/dL (6.3-8.2); Triglycerides 60 mg/dL (<150); WBC 4.7 k/uL (3.8-10.6)
--- NOTE | 2018-03-07 13:00 | P.PN ---
Subjective Patient was admitted for alcoholic pancreatitis pain improved will start him on diet advance as tolerated. Patient will remain on clear liquid diet today. We' ll repeat the lipase and tomorrow which is significant improved today and will patient appears to have alcoholic hepatitis with repeat liver enzymes tomorrow. 03/07/2018 Patient pain is better today and do not have a lipid is available but liver enzymes are coming down. Will continue to advance her diet and if patient is doing well will be discharged tomorrow Constitutional: Denied any fatigue denied any fever. Cardio vascular: denied any chest pain, palpitations Gastrointestinal denied any nausea vomiting, abdominal pain improved significantly compared to yesterday. Pulmonary: Denied any shortness of breath cough Neurologic denied any new focal deficits Objective - Vital Signs Vital signs: Vital Signs Temp 97.1 F L 03/07/18 06:00 Pulse 86 03/07/18 06:00 Resp 16 03/07/18 06:00 BP 120/74 03/07/18 06:00 Pulse Ox 92 L 03/07/18 06:00 Intake & Output 03/06/18 03/07/18 03/07/18 18:59 06:59 18:59 Intake Total 800 236 Balance 800 236 Intake: IV 800 Sodium Chloride 0.9% 1, 800 000 ml @ 100 mls/hr IV . Q10H JESSY Rx#:[id number] Oral 236 Other: # Voids 1 1 # Bowel Movements 0 # [place] 0 - Exam PHYSICAL EXAMINATION: GENERAL: The patient is alert and oriented x3, not in any acute distress. Well developed, well nourished. HEENT: Pupils are round and equally reacting to light. EOMI. No scleral icterus. No conjunctival pallor. Normocephalic, atraumatic. No pharyngeal erythema. No thyromegaly. CARDIOVASCULAR: S1 and S2 present. No murmurs, rubs, or gallops. PULMONARY: Chest is clear to auscultation, no wheezing or crackles. ABDOMEN: Patient has minimal epigastric abdominal tenderness multiple abdominal surgeries and ventral hernias. Abdomen is distended no rebound or rigidity MUSCULOSKELETAL: No joint swelling or deformity. EXTREMITIES: No cyanosis, clubbing, or pedal edema. NEUROLOGICAL: Gross neurological examination did not reveal any focal deficits. SKIN: No rashes. - Labs CBC & Chem 7: 03/07/18 07:40 03/07/18 07:40 Labs: Abnormal Lab Results - Last 24 Hours (Table) 03/07/18 03/07/18 Range/Units 07:40 07:40 RBC 3.72 L (4.30-5.90) m/uL Hgb 10.7 L (13.0-17.5) gm/dL Hct 33.1 L (39.0-53.0) % RDW 17.1 H (11.5-15.5) % BUN 7 L (9-20) mg/dL Total Bilirubin 2.0 H (0.2-1.3) mg/dL AST 204 H (17-59) U/L ALT 137 H (21-72) U/L Alkaline Phosphatase 471 H (38-126) U/L Total Protein 4.7 L (6.3-8.2) g/dL Albumin 2.3 L (3.5-5.0) g/dL Assessment and Plan Plan: -Alcoholic pancreatitis: Advance her diet disc any IV fluids if he continues to improve will be discharged tomorrow -Acute alcoholic hepatitis: There are enzymes are better today -Alcohol abuse: No alcohol withdrawals at this time -Atrial fibrillation: Rate controlled continue with his metoprolol continue with has anticoagulation -Hypertension -Gastroesophageal reflux disease -Multiple abdominal hernias
[2018-03-08] MEDS: MORPHINE SULFATE 2 MG/ML SYRINGE IV PRN (03:18)
[2018-03-08] MEDS: METOPROLOL TARTRATE 25 MG TAB PO SCH (08:38)
[2018-03-08] MEDS: amLODIPine 5 MG TAB PO SCH (08:38)
[2018-03-08] MEDS: APIXABAN 5 MG TAB PO SCH (08:38)
[2018-03-08 09:21] LABS: Anisocytosis Slight; Basophils % (A) 0 %; Eosinophils # (A) 0.1 k/uL (0-0.7); Eosinophils % (A) 3 %; HGB 10.7 gm/dL (13.0-17.5); Hypochromasia Slight; Lymphocytes # (A) 0.5 k/uL (1.0-4.8); Lymphocytes % (A) 13 %; MCH 28.2 pg (25.0-35.0); MCHC 30.6 g/dL (31.0-37.0); Mean Platelet Volume 7.7; Monocytes # (A) 0.4 k/uL (0-1.0); Monocytes % (A) 9 %; Neutrophils % (A) 72 %; Platelet Count 206 k/uL (150-450); RBC 3.81 m/uL (4.30-5.90); RDW 18.2 % (11.5-15.5); WBC 4.1 k/uL (3.8-10.6)
[2018-03-08 09:35] LABS: Amylase 32 U/L (30-110); Anion Gap 8 mmol/L; Blood Urea Nitrogen 7 mg/dL (9-20); Calcium 8.9 mg/dL (8.4-10.2); Carbon Dioxide 24 mmol/L (22-30); Chloride 105 mmol/L (98-107); Glucose 157 mg/dL (74-99); Lipase 275 U/L (23-300); Potassium 3.3 mmol/L (3.5-5.1); Sodium 137 mmol/L (137-145)
[2018-03-08] MEDS ORDERED: Potassium Replacement Protocol 1 EACH MISC MISCELLANE PRN (10:48)
[2018-03-08] MEDS ORDERED: Magnesium Replacement Protocol 1 EACH MISC MISCELLANE PRN (10:48)
[2018-03-08] MEDS: POTASSIUM CHLORIDE ER 20 MEQ TAB.ER PO SCH ×2 (12:23→14:52)
[2018-03-08] MEDS ORDERED: POTASSIUM CHLORIDE ER 20 MEQ TAB.ER PO SCH (14:00)
--- NOTE | 2018-03-08 14:38 | P.DS ---
Providers Date of admission: 03/05/18 09:37 Expected date of discharge: 03/08/18 Attending physician: Katherin Ontiveros Primary care physician: Rebekah Hood Hospital Course: Final Diagnoses: -Alcoholic pancreatitis, improved -Acute alcoholic hepatitis, improving -Alcohol abuse: No alcohol withdrawals at this time -Atrial fibrillation: Rate controlled -Hypertension -Gastroesophageal reflux disease -Multiple abdominal hernias Hospital course:Patient was admitted for alcoholic pancreatitis. Treated with IV fluids, pain improved, LFTs, Amylase lipase improved, diet advanced. No DTs did not require Ativan. Alcohol sensation readdressed. Significant clinical improvement. Patient is being discharged home in a stable condition with guarded prognosis. PHYSICAL EXAMINATION: GENERAL: The patient is alert and oriented x3, not in any acute distress. CARDIOVASCULAR: S1 and S2 present. No murmurs, rubs, or gallops. PULMONARY: Chest is clear to auscultation, no wheezing or crackles. ABDOMEN: Patient has minimal epigastric abdominal tenderness multiple abdominal surgeries and ventral hernias. Abdomen is distended no rebound or rigidity NEUROLOGICAL: Gross neurological examination did not reveal any focal deficits. The impression and plan of care has been dictated as directed. : I performed a history and examination of this patient, discussed the same with the dictator. I agree with the dictator's note ,documented as a scribe. Any additional findings or plans will be noted. Time taken: 35 minutes Patient Condition at Discharge: Stable Plan - Discharge Summary Discharge Rx Participant: No New Discharge Prescriptions: New Folic Acid 1 mg PO DAILY #30 tablet Continue Allopurinol [Zyloprim] 300 mg PO DAILY Cholecalciferol [Vitamin D3] 5,000 unit PO DAILY Metoprolol Tartrate [Lopressor] 25 mg PO BID Multivitamin [Men's Multi-Vitamin] 1 tab PO DAILY #30 amLODIPine [Norvasc] 5 mg PO DAILY Apixaban [Eliquis] 5 mg PO BID Thiamine [Vitamin B-1] 100 mg PO DAILY Discharge Medication List Allopurinol [Zyloprim] 300 mg PO DAILY 02/22/14 [History] Cholecalciferol [Vitamin D3] 5,000 unit PO DAILY 07/26/14 [History] Metoprolol Tartrate [Lopressor] 25 mg PO BID 06/28/17 [History] Multivitamin [Men's Multi-Vitamin] 1 tab PO DAILY #30 07/01/17 [Rx] Apixaban [Eliquis] 5 mg PO BID 11/12/17 [History] Thiamine [Vitamin B-1] 100 mg PO DAILY 11/12/17 [History] amLODIPine [Norvasc] 5 mg PO DAILY 11/12/17 [History] Folic Acid 1 mg PO DAILY #30 tablet 03/08/18 [Rx] Follow up Appointment(s)/Referral(s): Rebekah Hood DO [Primary Care Provider] - 3 Days Ambulatory/Diagnostic Orders: Comprehensive Metabolic Panel [LAB.AMB] Time Frame: 3 Days, Location: Determined By Patient Patient Instructions/Handouts: Pancreatitis (DC) Activity/Diet/Wound Care/Special Instructions: NO ETOH
[2018-03-08 14:48] VITALS: RESP 16
[2018-03-08 14:52] VITALS: BP 120/61; PULSE 81; TEMP 98
== END 2018-03-08 15:27 | disposition home or self-care (01) | DRG 440 ==
LOC: EC 07:20 → 4MS4W 09:37
PROVIDERS: ADMIT Internal Medicine; ATTEND Internal Medicine
DX: K85.20 Alcohol induced acute pancreatitis without necrosis or infection (principal); K70.10 Alcoholic hepatitis without ascites; F10.10 Alcohol abuse, uncomplicated; I10 Essential (primary) hypertension; I48.91 Unspecified atrial fibrillation; K21.9 Gastro-esophageal reflux disease without esophagitis; K86.1 Other chronic pancreatitis; N40.0 Benign prostatic hyperplasia without lower urinary tract symptoms; Z79.01 Long term (current) use of anticoagulants; Z80.3 Family history of malignant neoplasm of breast; Z80.41 Family history of malignant neoplasm of ovary; Z82.49 Family history of ischemic heart disease and other diseases of the circulatory system; Z82.5 Family history of asthma and other chronic lower respiratory diseases; Z85.528 Personal history of other malignant neoplasm of kidney; Z86.010 Personal history of colon polyps; Z86.711 Personal history of pulmonary embolism; Z87.891 Personal history of nicotine dependence; Z90.49 Acquired absence of other specified parts of digestive tract; Z96.652 Presence of left artificial knee joint; Z98.84 Bariatric surgery status; Z79.899 Other long term (current) drug therapy; Z71.41 Alcohol abuse counseling and surveillance of alcoholic
CPT/HCPCS: 36415; 74018; 74177; 80048; 80053; 80061; 81003; 82150; 83605; 83690; 83735; 84484; 85025; 85027; 85610; 85730; 90732; 96361; 96374; 96376; 99285

== ENCOUNTER 2018-04-30 17:02 | Inpatient (IN) | payer MEDICARE, OTHER ==
[2018-04-30] MEDS ORDERED: SODIUM CHLORIDE 0.9% 1,000 ML IV STA ×2 (18:39)
[2018-04-30] MEDS ORDERED: ONDANSETRON 4 MG/2 ML VIAL IVP STA (19:00)
[2018-04-30] MEDS ORDERED: MORPHINE SULFATE 4 MG/ML SYRINGE IV STA (19:00)
--- NOTE | 2018-04-30 19:02 | ED ---
Abdominal Pain HPI - General Source: patient, RN notes reviewed, old records reviewed Mode of arrival: ambulatory Limitations: no limitations <Keily Gibson - Last Filed: 04/30/18 19:53> <Mickey Ziegler - Last Filed: 04/30/18 22:05> - General Chief Complaint: Abdominal Pain Stated Complaint: abd pain Time Seen by Provider: 04/30/18 18:39 - History of Present Illness Initial Comments: This is a 67-year-old male with a history of pancreatitis and alcohol use presents emergency room today with left-sided abdominal pain. Patient reports that he has had pain a few hours after drinking alcohol with his friends at a bar celebrating mcc. Patient states that he's had no other symptoms including vomiting or nausea. Patient states he's had some diarrhea earlier this week. He states that it seemed to be somewhat bloody. He does have history of IBS. Patient states that he is on Elavil Melchor. Patient denies any chest pain or shortness of breath. Since being in the emergency department laying down on the bed he states that the pain has diminished. (Keily Gibson) - Related Data Home Medications Medication Instructions Recorded Confirmed Allopurinol [Zyloprim] 300 mg PO DAILY 02/22/14 03/05/18 Cholecalciferol [Vitamin D3] 5,000 unit PO DAILY 07/26/14 03/05/18 Metoprolol Tartrate [Lopressor] 25 mg PO BID 06/28/17 03/05/18 Apixaban [Eliquis] 5 mg PO BID 11/12/17 03/05/18 Thiamine [Vitamin B-1] 100 mg PO DAILY 11/12/17 03/05/18 amLODIPine [Norvasc] 5 mg PO DAILY 11/12/17 03/05/18 Previous Rx's Medication Instructions Recorded Multivitamin [Men's Multi-Vitamin] 1 tab PO DAILY #30 07/01/17 Folic Acid 1 mg PO DAILY #30 tablet 03/08/18 Allergies Allergy/AdvReac Type Severity Reaction Status Date / Time No Known Allergies Allergy Verified 04/30/18 17:29 Review of Systems ROS Other: All systems not noted in ROS Statement are negative. <Keily Gibson - Last Filed: 04/30/18 19:53> ROS Other: All systems not noted in ROS Statement are negative. <Mickey Ziegler - Last Filed: 04/30/18 22:05> ROS Statement: Those systems with pertinent positive or pertinent negative responses have been documented in the HPI. Past Medical History Past Medical History: Atrial Fibrillation, Blood Disorder, Cancer, GERD/Reflux, Osteoarthritis (OA), Pulmonary Embolus (PE) Additional Past Medical History / Comment(s): Afib/RVR, pulmonary embolism L lung, pancreatitis multiple times, ETOH abuse, recent diagnosed with R renal carcinoma with sx, BPH, past R lung pneumo with chest tube, diverticulitis, benign colon polyps, arthritis multiple joints, abdominal hernias. History of Any Multi-Drug Resistant Organisms: None Reported Past Surgical History: Bariatric Surgery, Bowel Resection, Cholecystectomy, Hernia Repair, Joint Replacement Additional Past Surgical History / Comment(s): Recent (2017) r kidney lesion [facility]ablation [facility], 2013 bowel resection d/t viscus perf with colostomy later reversed , gastric sleeve converted to darrell-en-Y 08/2014-post op wound infection, paraesphogeal hiat hernia repair, R inguinal and umbilical hernia repairs, colonoscopies, L total knee arthroplasty. Past Anesthesia/Blood Transfusion Reactions: No Reported Reaction Past Psychological History: No Psychological Hx Reported Smoking Status: Former smoker Past Alcohol Use History: Heavy Past Drug Use History: None Reported - Past Family History Father Family Medical History: COPD, Myocardial Infarction ([place]) Additional Family Medical History / Comment(s): Father from a [place] at the age of 69yrs. Mother Family Medical History: Cancer Additional Family Medical History / Comment(s): Mother from ovarian cancer at the age of 69yrs. Sister(s) Family Medical History: Cancer Additional Family Medical History / Comment(s): at age 74yrs. Had breast cancer and a defibrillator <Keily Gibson - Last Filed: 04/30/18 19:53> General Exam Limitations: no limitations General appearance: alert, in no apparent distress Head exam: Present: atraumatic, normocephalic, normal inspection Eye exam: Present: normal appearance, PERRL, EOMI. Absent: scleral icterus, conjunctival injection, periorbital swelling ENT exam: Present: normal exam, mucous membranes moist Neck exam: Present: normal inspection. Absent: tenderness, meningismus, lymphadenopathy Respiratory exam: Present: normal lung sounds bilaterally. Absent: respiratory distress, wheezes, rales, rhonchi, stridor Cardiovascular Exam: Present: regular rate, normal rhythm, normal heart sounds. Absent: systolic murmur, diastolic murmur, rubs, gallop, clicks GI/Abdominal exam: Present: soft, tenderness (The gastric tenderness.), normal bowel sounds. Absent: distended, guarding, rebound, rigid Extremities exam: Present: normal inspection, full ROM, normal capillary refill. Absent: tenderness, pedal edema, joint swelling, calf tenderness Back exam: Present: normal inspection Neurological exam: Present: alert, oriented X3, CN II-XII intact Psychiatric exam: Present: normal affect, normal mood Skin exam: Present: warm, dry, intact, normal color. Absent: rash <Keily Gibson - Last Filed: 04/30/18 19:53> <Mickey Ziegler - Last Filed: 04/30/18 22:05> - General Exam Comments Initial Comments: 67-year-old male. Alert and oriented. No significant distress. (Keily Gibson) Vital Signs 04/30/18 04/30/18 17:28 18:46 Temperature 98.4 F 98.6 F Pulse Rate 83 66 Respiratory 18 18 Rate Blood Pressure 130/83 134/60 O2 Sat by Pulse 97 97 Oximetry Medical Decision Making - Lab Data Result diagrams: 04/30/18 18:46 04/30/18 18:46 <Keily Gibson - Last Filed: 04/30/18 19:53> - Lab Data Result diagrams: 04/30/18 18:46 04/30/18 18:46 <Mickey Ziegler - Last Filed: 04/30/18 22:05> - Medical Decision Making 67-year-old male presenting with abdominal pain. Patient is noted to have heme positive stool. He is currently on anticoagulation which she takes for atrial fibrillation. Hemoglobin is stable at 12.9. Normal white blood cell count, x- ray does reveal concern for ileus, CT is obtained, negative for small bowel obstruction or acute intra-abdominal process. Patient will be admitted for symptomatically treatment of abdominal pain, he is started on tonic for GI bleed. He will have repeat hemoglobin testing, and consultation to gastroenterology. (Mickey Ziegler) - Lab Data Lab Results 04/30/18 04/30/18 04/30/18 Range/Units 18:46 18:46 18:46 WBC 6.0 (3.8-10.6) k/uL RBC 4.50 (4.30-5.90) m/uL Hgb 12.9 L (13.0-17.5) gm/dL Hct 41.2 (39.0-53.0) % MCV 91.5 (80.0-100.0) fL MCH 28.7 (25.0-35.0) pg MCHC 31.3 (31.0-37.0) g/dL RDW 15.9 H (11.5-15.5) % Plt Count 263 (150-450) k/uL Neutrophils % 67 % Lymphocytes % 20 % Monocytes % 7 % Eosinophils % 1 % Basophils % 1 % Neutrophils # 4.0 (1.3-7.7) k/uL Lymphocytes # 1.2 (1.0-4.8) k/uL Monocytes # 0.4 (0-1.0) k/uL Eosinophils # 0.1 (0-0.7) k/uL Basophils # 0.0 (0-0.2) k/uL PT 10.3 (9.0-12.0) sec INR 1.1 (<1.2) APTT 22.2 (22.0-30.0) sec Sodium 137 (137-145) mmol/L Potassium 4.1 (3.5-5.1) mmol/L Chloride 106 (98-107) mmol/L Carbon Dioxide 21 L (22-30) mmol/L Anion Gap 10 mmol/L BUN 14 (9-20) mg/dL Creatinine 1.08 (0.66-1.25) mg/dL Est GFR (CKD-EPI)AfAm 82 (>60 ml/min/1.73 sqM) Est GFR (CKD-EPI)NonAf 71 (>60 ml/min/1.73 sqM) Glucose 102 H (74-99) mg/dL Calcium 9.0 (8.4-10.2) mg/dL Total Bilirubin 0.5 (0.2-1.3) mg/dL AST 48 (17-59) U/L ALT 39 (21-72) U/L Alkaline Phosphatase 167 H (38-126) U/L Total Protein 6.3 (6.3-8.2) g/dL Albumin 3.1 L (3.5-5.0) g/dL Amylase 42 (30-110) U/L Lipase 63 (23-300) U/L Urine Color Urine Appearance (Clear) Urine pH (5.0-8.0) Ur Specific Cornelius (1.001-1.035) Urine Protein (Negative) Urine Glucose (UA) (Negative) Urine Ketones (Negative) Urine Blood (Negative) Urine Nitrite (Negative) Urine Bilirubin (Negative) Urine Urobilinogen (<2.0) mg/dL Ur Leukocyte Esterase (Negative) Stool Occult Blood (Negative) 04/30/18 04/30/18 Range/Units 18:47 20:35 WBC (3.8-10.6) k/uL RBC (4.30-5.90) m/uL Hgb (13.0-17.5) gm/dL Hct (39.0-53.0) % MCV (80.0-100.0) fL MCH (25.0-35.0) pg MCHC (31.0-37.0) g/dL RDW (11.5-15.5) % Plt Count (150-450) k/uL Neutrophils % % Lymphocytes % % Monocytes % % Eosinophils % % Basophils % % Neutrophils # (1.3-7.7) k/uL Lymphocytes # (1.0-4.8) k/uL Monocytes # (0-1.0) k/uL Eosinophils # (0-0.7) k/uL Basophils # (0-0.2) k/uL PT (9.0-12.0) sec INR (<1.2) APTT (22.0-30.0) sec Sodium (137-145) mmol/L Potassium (3.5-5.1) mmol/L Chloride (98-107) mmol/L Carbon Dioxide (22-30) mmol/L Anion Gap mmol/L BUN (9-20) mg/dL Creatinine (0.66-1.25) mg/dL Est GFR (CKD-EPI)AfAm (>60 ml/min/1.73 sqM) Est GFR (CKD-EPI)NonAf (>60 ml/min/1.73 sqM) Glucose (74-99) mg/dL Calcium (8.4-10.2) mg/dL Total Bilirubin (0.2-1.3) mg/dL AST (17-59) U/L ALT (21-72) U/L Alkaline Phosphatase (38-126) U/L Total Protein (6.3-8.2) g/dL Albumin (3.5-5.0) g/dL Amylase (30-110) U/L Lipase (23-300) U/L Urine Color Yellow Urine Appearance Clear (Clear) Urine pH 5.0 (5.0-8.0) Ur Specific Cornelius 1.013 (1.001-1.035) Urine Protein Negative (Negative) Urine Glucose (UA) Negative (Negative) Urine Ketones Negative (Negative) Urine Blood Negative (Negative) Urine Nitrite Negative (Negative) Urine Bilirubin Negative (Negative) Urine Urobilinogen <2.0 (<2.0) mg/dL Ur Leukocyte Esterase Negative (Negative) Stool Occult Blood Positive (Negative) Disposition <Keily Gibson - Last Filed: 04/30/18 19:53> Is patient prescribed a controlled substance at d/c from ED?: No Decision to Admit Reason: Admit from EC Decision Date: 04/30/18 Decision Time: 21:05 <Mickey Ziegler - Last Filed: 04/30/18 22:05> Clinical Impression: Abdominal pain, GI bleed Disposition: ADMITTED IP TO THIS [facility] Condition: Stable Referrals: Rebekah Hood DO [Primary Care Provider] - 1-2 days
[2018-04-30 19:09] LABS: Basophils % (A) 1 %; Eosinophils # (A) 0.1 k/uL (0-0.7); Eosinophils % (A) 1 %; HCT 41.2 % (39.0-53.0); HGB 12.9 gm/dL (13.0-17.5); Lymphocytes # (A) 1.2 k/uL (1.0-4.8); Lymphocytes % (A) 20 %; MCH 28.7 pg (25.0-35.0); MCHC 31.3 g/dL (31.0-37.0); MCV 91.5 fL (80.0-100.0); Mean Platelet Volume 7.4; Monocytes # (A) 0.4 k/uL (0-1.0); Monocytes % (A) 7 %; Neutrophils % (A) 67 %; Platelet Count 263 k/uL (150-450); RDW 15.9 % (11.5-15.5)
[2018-04-30 19:27] LABS: Albumin 3.1 g/dL (3.5-5.0); Potassium 4.1 mmol/L (3.5-5.1); Total Bilirubin 0.5 mg/dL (0.2-1.3); Total Protein 6.3 g/dL (6.3-8.2)
[2018-04-30 19:44] LABS: INR 1.1 (<1.2); Partial Thromboplastin Time 22.2 sec (22.0-30.0); Prothrombin Time 10.3 sec (9.0-12.0)
--- NOTE | 2018-04-30 20:16 | XR ---
EXAMINATION TYPE: XR KUB DATE OF EXAM: 04/30/2018 COMPARISON: 03/05/2018 HISTORY: Abdominal pain TECHNIQUE: 2 views FINDINGS: There are multiple distended gas-filled loops of bowel. There is no sign of free air. There are clips from cholecystectomy. Exam is limited by the patient size. There is possible ascites. IMPRESSION: There is probably ascites. Intestinal ileus. No free air. There is probably some infiltra te in the lower lobes.
[2018-04-30 20:44] LABS: Appearance,Urine Clear (Clear); Bilirubin,Urine Negative (Negative); Blood,Urine Negative (Negative); Color,Urine Yellow; Glucose,Urine (UA) Negative (Negative); Ketones,Urine Negative (Negative); Leukocyte Esterase,Urine Negative (Negative); Nitrite,Urine Negative (Negative); Protein,Urine Negative (Negative); Specific Gravity,Urine 1.013 (1.001-1.035); Urobilinogen,Urine <2.0 mg/dL (<2.0)
--- NOTE | 2018-04-30 21:49 | CT ---
EXAMINATION TYPE: CT abdomen pelvis w con DATE OF EXAM: 04/30/2018 COMPARISON: 03/05/2018 HISTORY: Generalized pain with diarrhea CT DLP: 4018 mGycm Automated exposure control for dose reduction was used. TECHNIQUE: Helical acquisition of images was performed from the lung bases through the pelvis. CONTRAST: Performed without Oral Contrast and with IV Contrast, patient injected with 100 mL of Isovue 300. FINDINGS: There are multiple old posterior lower right rib fractures. There is some linear density in the right lower lobe consistent with scarring. There is no pleural effusion. Heart size is normal. There is sm all hiatal hernia. There are surgical clips apparently from bariatric surgery. Liver shows no focal defect. There are clips from cholecystectomy. Spleen appears normal. There is no pancreatic mass. There is normal contrast opacification of the kidneys. There is no hydronephrosis. There are bilateral renal cortical cysts that measure up to 2 cm. There is a 8 mm calculus in the lef t kidney. There is no hydronephrosis. Ureters are not dilated. There is no sign of retroperitoneal ad enopathy. There is no ascites. Bladder distends smoothly. There is thinning of the anterior abdominal wall with apparent ventral hernia. There are spondylotic changes in the lumbar spine. There is no si gn of free air. IMPRESSION: NO SIGN OF ACUTE ABDOMEN AND PELVIS. THERE IS CLEARING OF THE INFLAMMATORY CHANGES AROUND THE PANCREA S COMPARED TO OLD EXAM. VENTRAL HERNIA. NO EVIDENCE OF A BOWEL OBSTRUCTION. NONOBSTRUCTING LEFT RENAL CALCULUS.
[2018-04-30] MEDS ORDERED: PANTOPRAZOLE 40 MG/10 ML VIAL IVP STA (21:55)
[2018-04-30] MEDS ORDERED: ACETAMINOPHEN TAB 325 MG TAB PO PRN (22:02)
[2018-04-30] MEDS ORDERED: ONDANSETRON 4 MG/2 ML VIAL IVP PRN (22:02)
[2018-04-30] MEDS ORDERED: NALOXONE 0.4 MG/ML 1 ML VIAL IV PRN (22:02)
[2018-05-01 00:23] VITALS: BMI 40.4
[2018-05-01] MEDS: SODIUM CHLORIDE 0.9% 1,000 ML IV SCH (00:27)
[2018-05-01] MEDS: MORPHINE SULFATE 4 MG/ML SYRINGE IV PRN ×3 (02:18→19:53)
[2018-05-01 07:06] LABS: Basophils % (A) 1 %; Eosinophils # (A) 0.1 k/uL (0-0.7); Eosinophils % (A) 3 %; HCT 35.1 % (39.0-53.0); HGB 11.1 gm/dL (13.0-17.5); Lymphocytes # (A) 0.9 k/uL (1.0-4.8); Lymphocytes % (A) 20 %; MCH 29.4 pg (25.0-35.0); MCHC 31.8 g/dL (31.0-37.0); MCV 92.5 fL (80.0-100.0); Mean Platelet Volume 7.6; Monocytes # (A) 0.4 k/uL (0-1.0); Monocytes % (A) 9 %; Neutrophils # (A) 2.9 k/uL (1.3-7.7); Neutrophils % (A) 64 %; Platelet Count 200 k/uL (150-450); RBC 3.79 m/uL (4.30-5.90); RDW 15.8 % (11.5-15.5); WBC 4.6 k/uL (3.8-10.6)
[2018-05-01 07:18] LABS: Albumin 2.2 g/dL (3.5-5.0); Calcium 8.4 mg/dL (8.4-10.2); Potassium 4.2 mmol/L (3.5-5.1); Total Bilirubin 0.6 mg/dL (0.2-1.3); Total Protein 4.8 g/dL (6.3-8.2)
[2018-05-01] MEDS: PANTOPRAZOLE 40 MG/10 ML VIAL IVP SCH ×2 (07:55→21:03)
--- NOTE | 2018-05-01 12:29 | P.HPIM ---
History of Present Illness This is a pleasant 67 years old male with past medical history of chronic relation, history of pulmonary embolism of the left lung on liquids 5 mg, recurrent pancreatitis with history of alcohol abuse, recently diagnosed renal cell carcinoma. BPH, diverticulitis, history of benign colonic polyps, multiple arthritis/arthralgia, abdominal hernia, osteoarthritis, status post bariatric surgery and bowel resection, history of cholecystectomy. This time he presents because of abdominal pain` of one-day duration, abdominal pain is around the umbilicus and sometimes epigastric , dull in sensation , was very severe yesterday 06/30, came down to 3/10 today after pain medication. No associated nausea vomiting. Patient complains from loose bowel movement of more than 2 months in duration with some blood in it on and off. He had EGD/ colonoscopy about 3 years ago as per patient. He has history of bowel resection in 2012 for perforated bowel, unknown reason why. Patient states he has history of right kidney tumor is being treated about 1 year and a half by his urologist and [facility] WITH cryotherapy. He supposed to follow up with his urologist for this month. Patient states is going to call and make an appointment this month. On the computed tomography scan of the abdomen and it shows left nonobstructing kidney stone of 8 mm, patient informed and instructed to follow up with his urologist and he agrees within 1-2 weeks Also admits to drinking alcohol 5-6 drinks, drinks 5-6 days a week. No history of smoking or illicit drug abuse as per patient. In the ED vitals were stable, CBC was unremarkable except for mild anemia, BMP showing sodium 139, potassium 4.2, creatinine 1.02, LFTs were unremarkable. Lipase 63 which is within normal limits. UA is negative but has positive occult blood in stool. CT of the abdomen and pelvis with IV contrast showing, 8 mm left kidney stone with no hydronephrosis. EKG shows normal sinus rhythm at 73 BPM, no significant ST T changes, QTC 462 Review of Systems CONSTITUTIONAL: No fever, no malaise, no fatigue. HEENT: No recent visual problems or hearing problems. Denied any sore throat. CARDIOVASCULAR: No orthopnea, PND, no palpitations, no syncope. PULMONARY: No shortness of breath, no cough, no hemoptysis. GASTROINTESTINAL: No diarrhea, no nausea, no vomiting, no abdominal pain. Normoactive bowel sounds. NEUROLOGICAL: No headaches, no weakness, no numbness. HEMATOLOGICAL: Denies any bleeding or petechiae. GENITOURINARY: Denies any burning micturition, frequency, or urgency. MUSCULOSKELETAL/RHEUMATOLOGICAL: Denies any joint pain, swelling, or any muscle pain. ENDOCRINE: Denies any polyuria or polydipsia. Past Medical History Past Medical History: Atrial Fibrillation, Blood Disorder, Cancer, Osteoarthritis (OA), Pulmonary Embolus (PE) Additional Past Medical History / Comment(s): Afib/RVR, pulmonary embolism L lung, pancreatitis multiple times, ETOH abuse, recent diagnosed with R renal carcinoma with sx, BPH, past R lung pneumo with chest tube, diverticulitis, benign colon polyps, arthritis multiple joints, abdominal hernias. History of Any Multi-Drug Resistant Organisms: None Reported Past Surgical History: Bariatric Surgery, Bowel Resection, Cholecystectomy, Hernia Repair, Joint Replacement Additional Past Surgical History / Comment(s): Recent (2017) r kidney lesion cryoablation at [facility], 2012 bowel resection d/t viscus perf with colostomy later reversed , gastric sleeve converted to darrell-en-Y 08/2014-post op wound infection, paraesphogeal hiat hernia repair, R inguinal and umbilical hernia repairs, colonoscopies, L total knee arthroplasty. Past Anesthesia/Blood Transfusion Reactions: No Reported Reaction Past Psychological History: No Psychological Hx Reported Additional Psychological History / Comment(s): Pt resides alone. He is independent. He is retired from [employer]. Smoking Status: Former smoker Past Alcohol Use History: Heavy Additional Past Alcohol Use History / Comment(s): SMOKING: FOR 19 YRS, STOPPED, 1987. ETOH: HISTORY OF ABUSE- ADMITS TO DRINKING 4-5 MIXED DRINKS PER DAY. Past Drug Use History: None Reported - Past Family History Father Family Medical History: COPD, Myocardial Infarction ([place]) Additional Family Medical History / Comment(s): Father from a [place] at the age of 69yrs. Mother Family Medical History: Cancer Additional Family Medical History / Comment(s): Mother from ovarian cancer at the age of 69yrs. Sister(s) Family Medical History: Cancer Additional Family Medical History / Comment(s): at age 74yrs. Had breast cancer and a defibrillator Medications and Allergies Home Medications Medication Instructions Recorded Confirmed Type Allopurinol [Zyloprim] 300 mg PO DAILY 02/22/14 05/01/18 History Cholecalciferol [Vitamin D3] 5,000 unit PO DAILY 07/26/14 05/01/18 History Metoprolol Tartrate [Lopressor] 25 mg PO BID 06/28/17 05/01/18 History Multivitamin [Men's Multi-Vitamin] 1 tab PO DAILY #30 07/01/17 05/01/18 Rx Apixaban [Eliquis] 5 mg PO BID 11/12/17 05/01/18 History Thiamine [Vitamin B-1] 100 mg PO DAILY 11/12/17 05/01/18 History amLODIPine [Norvasc] 5 mg PO DAILY 11/12/17 05/01/18 History Folic Acid 1 mg PO DAILY #30 tablet 03/08/18 Rx Allergies Allergy/AdvReac Type Severity Reaction Status Date / Time No Known Allergies Allergy Verified 04/30/18 17:29 Physical Exam Vitals: Vital Signs Temp Pulse Pulse Resp BP BP Pulse Ox 05/01/18 06:50 98.1 F 63 18 125/72 95 05/01/18 00:01 97.6 F 67 16 135/74 96 04/30/18 22:24 78 20 154/74 96 04/30/18 18:46 98.6 F 66 18 134/60 97 04/30/18 17:28 98.4 F 83 18 130/83 97 Intake and Output 04/30/18 05/01/18 05/01/18 22:59 06:59 14:59 Intake Total 1620 Balance 1620 Intake: Amount of Fluid Infused ( 1500 ml) Intake, IV Titration 120 Amount Sodium Chloride 0.9% 1, 120 000 ml @ 20 mls/hr IV . Q24H [facility] Rx#:[id number] Other: Voiding Method Toilet # Voids 1 Weight 131.542 kg 131.542 kg GENERAL: The patient is alert and oriented x3, not in any acute distress. Well developed, well nourished. HEENT: Pupils are round and equally reacting to light. EOMI. No scleral icterus. No conjunctival pallor. Normocephalic, atraumatic. No pharyngeal erythema. No thyromegaly. CARDIOVASCULAR: S1 and S2 present. No murmurs, rubs, or gallops. PULMONARY: Chest is clear to auscultation, no wheezing or crackles. ABDOMEN: Soft, nontender, nondistended, normoactive bowel sounds. No palpable organomegaly. MUSCULOSKELETAL: No joint swelling or deformity. EXTREMITIES: No cyanosis, clubbing, or pedal edema. NEUROLOGICAL: Gross neurological examination did not reveal any focal deficits. SKIN: No rashes. Results CBC & Chem 7: 05/01/18 06:30 05/01/18 06:30 Labs: Abnormal Lab Results - Last 24 Hours (Table) 04/30/18 04/30/18 05/01/18 Range/Units 18:46 18:46 06:30 RBC 3.79 L (4.30-5.90) m/uL Hgb 12.9 L 11.1 L (13.0-17.5) gm/dL Hct 35.1 L (39.0-53.0) % RDW 15.9 H 15.8 H (11.5-15.5) % Lymphocytes # 0.9 L (1.0-4.8) k/uL Chloride (98-107) mmol/L Carbon Dioxide 21 L (22-30) mmol/L Glucose 102 H (74-99) mg/dL Alkaline Phosphatase 167 H (38-126) U/L Total Protein (6.3-8.2) g/dL Albumin 3.1 L (3.5-5.0) g/dL 05/01/18 Range/Units 06:30 RBC (4.30-5.90) m/uL Hgb (13.0-17.5) gm/dL Hct (39.0-53.0) % RDW (11.5-15.5) % Lymphocytes # (1.0-4.8) k/uL Chloride 109 H (98-107) mmol/L Carbon Dioxide (22-30) mmol/L Glucose (74-99) mg/dL Alkaline Phosphatase (38-126) U/L Total Protein 4.8 L (6.3-8.2) g/dL Albumin 2.2 L (3.5-5.0) g/dL Thrombosis Risk Factor Assmnt - Choose All That Apply Any of the Below Risk Factors Present?: Yes Each Factor Represents 1 point: Obesity (BMI >25) Other Risk Factors: Yes Each Risk Factor Represents 2 Points: Age 61-74 years, Malignancy Each Risk Factor Represents 3 Points: History of DVT/PE Thrombosis Risk Factor Assessment Total Risk Factor Score: 8 Thrombosis Risk Factor Assessment Level: High Risk Assessment and Plan Plan: -Abdominal pain, with positive FOBT. We'll call surgical/GI consult. Check iron profile -alcohol abuse, continue with vitamin D therapy and CIWA protocol -Anemia, continue with anemia workup, FOBT is positive, check iron profile, B12/ folate. -history of pulmonary embolism of the left lung on liquids 5 mg bid -h/o renal cancer , f/u as oupt -left kid stone (8 mm) f/u with urologist as outpt -BPH, c/w same treatment -h/o diverticulitis, c/w same treatment -HTN, c/w same treatment DVT Px: on eliquis GI px: Protonix PT/OT : pending prognosis is guarded
[2018-05-01] MEDS ORDERED: LORazepam 2 MG/ML INJ IV PRN ×2 (12:57)
[2018-05-01] MEDS: THIAMINE 100 MG TAB PO SCH (16:44)
[2018-05-01] MEDS: APIXABAN 5 MG TAB PO SCH (21:03)
[2018-05-01 22:45] LABS: Iron Saturation 22.39 (15.00-50.00)
[2018-05-01 22:53] LABS: Folate, Serum 14.8 ng/mL
[2018-05-01] MEDS: LORazepam 2 MG/ML INJ IV PRN (23:24)
[2018-05-02] MEDS: SODIUM CHLORIDE 0.9% 1,000 ML IV SCH ×2 (03:00→23:33)
[2018-05-02] MEDS: MORPHINE SULFATE 4 MG/ML SYRINGE IV PRN ×3 (04:27→22:12)
[2018-05-02 08:25] LABS: Basophils % (A) 1 %; Eosinophils # (A) 0.1 k/uL (0-0.7); Eosinophils % (A) 3 %; HCT 35.4 % (39.0-53.0); HGB 11.2 gm/dL (13.0-17.5); Lymphocytes # (A) 0.7 k/uL (1.0-4.8); Lymphocytes % (A) 19 %; MCH 29.1 pg (25.0-35.0); MCHC 31.5 g/dL (31.0-37.0); MCV 92.2 fL (80.0-100.0); Mean Platelet Volume 8.3; Monocytes # (A) 0.3 k/uL (0-1.0); Monocytes % (A) 9 %; Neutrophils # (A) 2.4 k/uL (1.3-7.7); Neutrophils % (A) 66 %; Platelet Count 198 k/uL (150-450); RBC 3.84 m/uL (4.30-5.90); RDW 15.6 % (11.5-15.5); WBC 3.6 k/uL (3.8-10.6)
[2018-05-02] MEDS: PANTOPRAZOLE 40 MG/10 ML VIAL IVP SCH ×2 (08:26→20:13)
[2018-05-02] MEDS: APIXABAN 5 MG TAB PO SCH (08:27)
[2018-05-02] MEDS: FOLIC ACID 1 MG TAB PO SCH (08:27)
[2018-05-02] MEDS: MULTIVITAMINS, THERA 1 EACH TAB PO SCH (08:27)
[2018-05-02] MEDS: THIAMINE 100 MG TAB PO SCH ×2 (08:27→16:02)
[2018-05-02 08:31] LABS: Chloride 107 mmol/L (98-107)
[2018-05-02 08:34] LABS: Anion Gap 3 mmol/L; Blood Urea Nitrogen 9 mg/dL (9-20); Calcium 8.5 mg/dL (8.4-10.2); Carbon Dioxide 25 mmol/L (22-30); Glucose 97 mg/dL (74-99); Potassium 4.1 mmol/L (3.5-5.1); Sodium 135 mmol/L (137-145)
[2018-05-02] MEDS ORDERED: THIAMINE 100 MG TAB PO SCH (12:00)
--- NOTE | 2018-05-02 12:42 | P.PN ---
Subjective This is a pleasant 67 years old male with past medical history of chronic relation, history of pulmonary embolism of the left lung on liquids 5 mg, recurrent pancreatitis with history of alcohol abuse, recently diagnosed renal cell carcinoma. BPH, diverticulitis, history of benign colonic polyps, multiple arthritis/arthralgia, abdominal hernia, osteoarthritis, status post bariatric surgery and bowel resection, history of cholecystectomy. This time he presents because of abdominal pain` of one-day duration, abdominal pain is around the umbilicus and sometimes epigastric , dull in sensation , was very severe yesterday 06/30, came down to 3/10 today after pain medication. No associated nausea vomiting. Patient complains from loose bowel movement of more than 2 months in duration with some blood in it on and off. He had EGD/ colonoscopy about 3 years ago as per patient. He has history of bowel resection in 2012 for perforated bowel, unknown reason why. Patient states he has history of right kidney tumor is being treated about 1 year and a half by his urologist and [facility] WITH cryotherapy. He supposed to follow up with his urologist for this month. Patient states is going to call and make an appointment this month. On the computed tomography scan of the abdomen and it shows left nonobstructing kidney stone of 8 mm, patient informed and instructed to follow up with his urologist and he agrees within 1-2 weeks Also admits to drinking alcohol 5-6 drinks, drinks 5-6 days a week. No history of smoking or illicit drug abuse as per patient. In the ED vitals were stable, CBC was unremarkable except for mild anemia, BMP showing sodium 139, potassium 4.2, creatinine 1.02, LFTs were unremarkable. Lipase 63 which is within normal limits. UA is negative but has positive occult blood in stool. CT of the abdomen and pelvis with IV contrast showing, 8 mm left kidney stone with no hydronephrosis. EKG shows normal sinus rhythm at 73 BPM, no significant ST T changes, QTC 462 05/02/2018 Patient periumbilical/epigastric abdominal pain is improving, still has epigastric tenderness, which is mild. Patient has formed bowel movement this morning, associated with some blood in it. His blood pressure is only low normal side and dropped from 129/78, to 100/63, however his hemoglobin remains stable at 11.1 and 11.2. Anemia workup shows suspicious for iron deficiency anemia with low iron and 14, B12 is low normal at 28T, restarted on B12. Patient states she was taking B12 after his bariatric surgery however he stopped. GI consult is pending in view of his positive FOBT, and ANTONY. Patient states he was taking a liquids secondary to A. fib, also DVT in 2012, and PE in 2013. Patient states he has his EGD in 2013 at the time he had bariatric surgery, showing 2 small peptic ulcers, which was resolved after that. I discussed the case with the patient and recommended to hold Eliquis in the view of possible GI bleed, risks including but not limited to recurrence PE , DVT, stroke, organ dysfunction and or are explained to the patient. He verbalized understanding and agrees to stop ELIQUIS for now. This is more than benefits of this medicine. Patient's with left kidney stone and kidney cysts, patient was instructed to follow up with his urologist in 1-2 weeks upon discharge and he agrees. CONSTITUTIONAL: No fever, no malaise, no fatigue. HEENT: No recent visual problems or hearing problems. Denied any sore throat. CARDIOVASCULAR: No orthopnea, PND, no palpitations, no syncope. PULMONARY: No shortness of breath, no cough, no hemoptysis. GASTROINTESTINAL: No diarrhea, no nausea, no vomiting. Normoactive bowel sounds. NEUROLOGICAL: No headaches, no weakness, no numbness. HEMATOLOGICAL: Denies any bleeding or petechiae. GENITOURINARY: Denies any burning micturition, frequency, or urgency. MUSCULOSKELETAL/RHEUMATOLOGICAL: Denies any joint pain, swelling, or any muscle pain. ENDOCRINE: Denies any polyuria or polydipsia. Objective - Vital Signs Vital signs: Vital Signs Temp 98.2 F 05/02/18 07:00 Pulse 76 05/02/18 07:00 Resp 17 05/02/18 07:00 BP 100/63 05/02/18 07:00 Pulse Ox 94 L 05/02/18 07:00 Intake & Output 05/01/18 05/02/18 05/02/18 18:59 06:59 18:59 Intake Total 460 Balance 460 Weight 131.542 kg Intake: Oral 460 Other: Voiding Method Toilet Toilet Toilet # Voids 2 5 1 # Bowel Movements 0 0 1 - Exam GENERAL: The patient is alert and oriented x3, not in any acute distress. Well developed, well nourished. HEENT: Pupils are round and equally reacting to light. EOMI. No scleral icterus. No conjunctival pallor. Normocephalic, atraumatic. No pharyngeal erythema. No thyromegaly. CARDIOVASCULAR: S1 and S2 present. No murmurs, rubs, or gallops. PULMONARY: Chest is clear to auscultation, no wheezing or crackles. ABDOMEN: Soft, nontender, nondistended, normoactive bowel sounds. No palpable organomegaly. MUSCULOSKELETAL: No joint swelling or deformity. EXTREMITIES: No cyanosis, clubbing, or pedal edema. NEUROLOGICAL: Gross neurological examination did not reveal any focal deficits. SKIN: No rashes. - Labs CBC & Chem 7: 05/02/18 07:42 05/02/18 07:42 Labs: Abnormal Lab Results - Last 24 Hours (Table) 05/01/18 05/02/18 05/02/18 Range/Units 06:30 07:42 07:42 WBC 3.6 L (3.8-10.6) k/uL RBC 3.84 L (4.30-5.90) m/uL Hgb 11.2 L (13.0-17.5) gm/dL Hct 35.4 L (39.0-53.0) % RDW 15.6 H (11.5-15.5) % Lymphocytes # 0.7 L (1.0-4.8) k/uL Sodium 135 L (137-145) mmol/L Iron 60 L (65-175) ug/dL Ferritin 12.2 L (22.0-322.0) ng/mL Assessment and Plan Plan: -Abdominal pain, with positive FOBT. We'll call surgical/GI consult. Check iron profile: ANTONY -alcohol abuse, continue with vitamin D therapy and CIWA protocol -Anemia, continue with anemia workup, FOBT is positive, ANTONY , low normal B12: replacement started , pt is instructed to f/u with his pcp -history of pulmonary embolism of the left lung on Eliquis 5 mg bid (on hold for GI bleed), pt agrees to risks of holding eliquis , see above -h/o renal cancer , f/u as oupt -left kid stone (8 mm) and kid cysts f/u with urologist as outpt -BPH, c/w same treatment -h/o diverticulitis, not active issue, -HTN, c/w same treatment DVT Px: dc elimaggy, mechanical for now GI px: Protonix PT/OT : pending prognosis is guarded
[2018-05-02] MEDS: CYANOCOBALAMIN 500 MCG TAB PO SCH (12:55)
[2018-05-02 16:06] LABS: Basophils % (A) 0 %; Eosinophils % (A) 2 %; HCT 34.2 % (39.0-53.0); HGB 11.1 gm/dL (13.0-17.5); Lymphocytes % (A) 22 %; MCH 29.5 pg (25.0-35.0); MCHC 32.3 g/dL (31.0-37.0); MCV 91.3 fL (80.0-100.0); Mean Platelet Volume 7.9; Monocytes % (A) 9 %; Neutrophils % (A) 63 %; Platelet Count 202 k/uL (150-450); RBC 3.75 m/uL (4.30-5.90); RDW 15.6 % (11.5-15.5); WBC 3.9 k/uL (3.8-10.6)
[2018-05-02 16:07] LABS: Eosinophils # (A) 0.1 k/uL (0-0.7); Lymphocytes # (A) 0.9 k/uL (1.0-4.8); Monocytes # (A) 0.3 k/uL (0-1.0); Neutrophils # (A) 2.5 k/uL (1.3-7.7)
--- NOTE | 2018-05-02 19:57 | P.CONS ---
History of Present Illness - Reason for Consult Consult date: 05/01/18 Abdominal pain and heme positive stools. - History of Present Illness The patient is a 67-year-old male who was admitted to the hospital with acute onset of left sided abdominal pain. He had a colonoscopy with me in 02/2016 because of history of polyps that showed diverticulosis. His prior exam was in June 2012 and he had an adenomatous polyp removed from the cecum. The patient had multiple surgeries including temporary colostomy with subsequent reversal for complicated diverticular disease with perforation in 2012 and had Bibi-en-Y bypass bariatric surgery. The patient has history of excessive alcohol use and pancreatitis in the past. He presented to the emergency room with left-sided abdominal pain. He reported that he has had pain a few hours after drinking alcohol with his friends at a bar celebrating snf. He stateed that he's had no other symptoms including vomiting or nausea. Reported some diarrhea earlier this week. He stateed that it seemed to be somewhat bloody. He does have history of IBS. Patient states on eliquis for history of PE. He denieed any chest pain or shortness of breath. Pain diminished gradually after arrival and admission. He was found to have anemia and heme positive stools. Review of Systems Constitutional: Denied fever, chills or unintentional weight loss Neurologic: No headaches, double vision or other sensory or motor changes Cardiopulmonary: No chest pains, shortness of breath or palpitations Gastrointestinal: See present illness above Genitourinary: No hematuria, dysuria or frequency Musculoskeletal: No joint complaints or swelling Skin: No rashes Endocrine: No history of diabetes or thyroid disease Hematologic: No history of anemia or bleeding tendency Psychiatric: No anxiety or depression Past Medical History Past Medical History: Atrial Fibrillation, Blood Disorder, Cancer, Osteoarthritis (OA), Pulmonary Embolus (PE) Additional Past Medical History / Comment(s): Afib/RVR, pulmonary embolism L lung, pancreatitis multiple times, ETOH abuse, recent diagnosed with R renal carcinoma with sx, BPH, past R lung pneumo with chest tube, diverticulitis, benign colon polyps, arthritis multiple joints, abdominal hernias. History of Any Multi-Drug Resistant Organisms: None Reported Past Surgical History: Bariatric Surgery, Bowel Resection, Cholecystectomy, Hernia Repair, Joint Replacement Additional Past Surgical History / Comment(s): Recent (2017) r kidney lesion cryoablation at [facility], 2013 bowel resection d/t viscus perf with colostomy later reversed , gastric sleeve converted to bibi-en-Y 08/2014-post op wound infection, paraesphogeal hiat hernia repair, R inguinal and umbilical hernia repairs, colonoscopies, L total knee arthroplasty. Past Anesthesia/Blood Transfusion Reactions: No Reported Reaction Past Psychological History: No Psychological Hx Reported Additional Psychological History / Comment(s): Pt resides alone. He is independent. He is retired from [employer]. Smoking Status: Former smoker Past Alcohol Use History: Heavy Additional Past Alcohol Use History / Comment(s): SMOKING: FOR 19 YRS, STOPPED, 1987. ETOH: HISTORY OF ABUSE- ADMITS TO DRINKING 4-5 MIXED DRINKS PER DAY. Past Drug Use History: None Reported - Past Family History Father Family Medical History: COPD, Myocardial Infarction (CT) Additional Family Medical History / Comment(s): Father from a CT at the age of 69yrs. Mother Family Medical History: Cancer Additional Family Medical History / Comment(s): Mother from ovarian cancer at the age of 69yrs. Sister(s) Family Medical History: Cancer Additional Family Medical History / Comment(s): at age 74yrs. Had breast cancer and a defibrillator Medications and Allergies Home Medications Medication Instructions Recorded Confirmed Type Allopurinol [Zyloprim] 300 mg PO DAILY 02/22/14 05/01/18 History Cholecalciferol [Vitamin D3] 5,000 unit PO DAILY 07/26/14 05/01/18 History Metoprolol Tartrate [Lopressor] 25 mg PO BID 06/28/17 05/01/18 History Multivitamin [Men's Multi-Vitamin] 1 tab PO DAILY #30 07/01/17 05/01/18 Rx Apixaban [Eliquis] 5 mg PO BID 11/12/17 05/01/18 History Thiamine [Vitamin B-1] 100 mg PO DAILY 11/12/17 05/01/18 History amLODIPine [Norvasc] 5 mg PO DAILY 11/12/17 05/01/18 History Allergies Allergy/AdvReac Type Severity Reaction Status Date / Time No Known Allergies Allergy Verified 05/01/18 13:00 Physical Exam Vitals: Vital Signs Temp Pulse Pulse Resp BP BP Pulse Ox 05/01/18 06:50 98.1 F 63 18 125/72 95 05/01/18 00:01 97.6 F 67 16 135/74 96 04/30/18 22:24 78 20 154/74 96 04/30/18 18:46 98.6 F 66 18 134/60 97 04/30/18 17:28 98.4 F 83 18 130/83 97 Intake and Output 04/30/18 05/01/18 05/01/18 22:59 06:59 14:59 Intake Total 1620 Balance 1620 Intake: Amount of Fluid Infused ( 1500 ml) Intake, IV Titration 120 Amount Sodium Chloride 0.9% 1, 120 000 ml @ 20 mls/hr IV . Q24H [facility] Rx#:[id number] Other: Voiding Method Toilet # Voids 1 Weight 131.542 kg 131.542 kg General: Appears stated age, very pleasant in no acute distress Head and neck: Normocephalic and atraumatic, conjunctivae pink and sclerae not icteric, mucous membranes moist and pink, no masses in the neck or tracheal shift Lungs: Clear to auscultation with no dullness to percussion Heart: Regular, no abnormal sounds, murmurs, gallops or friction rubs Abdomen: Soft, no masses or organomegaly, no tenderness. Bowel sounds present. Ventral surgical scar with incisional hernia noted Extremities: No clubbing, cyanosis or edema Neurologic: Alert and oriented 3. Cranial nerves grossly intact. No gross sensory or motor abnormalities Results CBC & Chem 7: 05/02/18 15:46 05/02/18 07:42 Labs: Abnormal Lab Results - Last 24 Hours (Table) 04/30/18 04/30/18 05/01/18 Range/Units 18:46 18:46 06:30 RBC 3.79 L (4.30-5.90) m/uL Hgb 12.9 L 11.1 L (13.0-17.5) gm/dL Hct 35.1 L (39.0-53.0) % RDW 15.9 H 15.8 H (11.5-15.5) % Lymphocytes # 0.9 L (1.0-4.8) k/uL Chloride (98-107) mmol/L Carbon Dioxide 21 L (22-30) mmol/L Glucose 102 H (74-99) mg/dL Alkaline Phosphatase 167 H (38-126) U/L Total Protein (6.3-8.2) g/dL Albumin 3.1 L (3.5-5.0) g/dL 05/01/18 Range/Units 06:30 RBC (4.30-5.90) m/uL Hgb (13.0-17.5) gm/dL Hct (39.0-53.0) % RDW (11.5-15.5) % Lymphocytes # (1.0-4.8) k/uL Chloride 109 H (98-107) mmol/L Carbon Dioxide (22-30) mmol/L Glucose (74-99) mg/dL Alkaline Phosphatase (38-126) U/L Total Protein 4.8 L (6.3-8.2) g/dL Albumin 2.2 L (3.5-5.0) g/dL Assessment and Plan Assessment: Abdominal pain could be related to mild pancreatitis despite negative CT and enzymes. No evidence to suggest other acute events or diverticulitis. IBS to be considered too. His anemia is probably chronic related to his gastric by-pass with acute element that could be secondary to gastroenteritis or bleeding diverticular disease especially in light of his colonoscopy findings 2 years ago. Doubt ischemic colitis with normal CT finding. Plan: Agree with your current management. Will continue clear liquids and monitor blood counts. Contingency EGD and colonoscopy based on his course. No studies are scheduled at this time.
[2018-05-02] MEDS: LORazepam 2 MG/ML INJ IV PRN (23:31)
[2018-05-03] MEDS: MORPHINE SULFATE 4 MG/ML SYRINGE IV PRN ×3 (04:29→21:09)
[2018-05-03 08:45] LABS: Basophils % (A) 1 %; Eosinophils # (A) 0.1 k/uL (0-0.7); Eosinophils % (A) 3 %; HCT 35.2 % (39.0-53.0); HGB 11.3 gm/dL (13.0-17.5); Lymphocytes # (A) 0.7 k/uL (1.0-4.8); Lymphocytes % (A) 20 %; MCH 29.8 pg (25.0-35.0); MCHC 32.2 g/dL (31.0-37.0); MCV 92.4 fL (80.0-100.0); Mean Platelet Volume 8.1; Monocytes # (A) 0.3 k/uL (0-1.0); Monocytes % (A) 8 %; Neutrophils # (A) 2.4 k/uL (1.3-7.7); Neutrophils % (A) 66 %; Platelet Count 208 k/uL (150-450); RBC 3.81 m/uL (4.30-5.90); RDW 15.5 % (11.5-15.5); WBC 3.6 k/uL (3.8-10.6)
[2018-05-03 08:58] LABS: Anion Gap 5 mmol/L; Blood Urea Nitrogen 7 mg/dL (9-20); Calcium 8.6 mg/dL (8.4-10.2); Carbon Dioxide 25 mmol/L (22-30); Chloride 105 mmol/L (98-107); Glucose 119 mg/dL (74-99); Potassium 3.6 mmol/L (3.5-5.1); Sodium 135 mmol/L (137-145)
[2018-05-03] MEDS: CYANOCOBALAMIN 500 MCG TAB PO SCH (09:31)
[2018-05-03] MEDS: FOLIC ACID 1 MG TAB PO SCH (09:31)
[2018-05-03] MEDS: MULTIVITAMINS, THERA 1 EACH TAB PO SCH (09:31)
[2018-05-03] MEDS: THIAMINE 100 MG TAB PO SCH ×2 (09:31→19:38)
[2018-05-03] MEDS: PANTOPRAZOLE 40 MG/10 ML VIAL IVP SCH ×2 (09:32→21:08)
--- NOTE | 2018-05-03 19:58 | P.PN ---
Subjective This is a pleasant 67 years old male with past medical history of chronic relation, history of pulmonary embolism of the left lung on liquids 5 mg, recurrent pancreatitis with history of alcohol abuse, recently diagnosed renal cell carcinoma. BPH, diverticulitis, history of benign colonic polyps, multiple arthritis/arthralgia, abdominal hernia, osteoarthritis, status post bariatric surgery and bowel resection, history of cholecystectomy. This time he presents because of abdominal pain` of one-day duration, abdominal pain is around the umbilicus and sometimes epigastric , dull in sensation , was very severe yesterday 06/30, came down to 3/10 today after pain medication. No associated nausea vomiting. Patient complains from loose bowel movement of more than 2 months in duration with some blood in it on and off. He had EGD/ colonoscopy about 3 years ago as per patient. He has history of bowel resection in 2012 for perforated bowel, unknown reason why. Patient states he has history of right kidney tumor is being treated about 1 year and a half by his urologist and [facility] WITH cryotherapy. He supposed to follow up with his urologist for this month. Patient states is going to call and make an appointment this month. On the computed tomography scan of the abdomen and it shows left nonobstructing kidney stone of 8 mm, patient informed and instructed to follow up with his urologist and he agrees within 1-2 weeks Also admits to drinking alcohol 5-6 drinks, drinks 5-6 days a week. No history of smoking or illicit drug abuse as per patient. In the ED vitals were stable, CBC was unremarkable except for mild anemia, BMP showing sodium 139, potassium 4.2, creatinine 1.02, LFTs were unremarkable. Lipase 63 which is within normal limits. UA is negative but has positive occult blood in stool. CT of the abdomen and pelvis with IV contrast showing, 8 mm left kidney stone with no hydronephrosis. EKG shows normal sinus rhythm at 73 BPM, no significant ST T changes, QTC 462 05/02/2018 Patient periumbilical/epigastric abdominal pain is improving, still has epigastric tenderness, which is mild. Patient has formed bowel movement this morning, associated with some blood in it. His blood pressure is only low normal side and dropped from 129/78, to 100/63, however his hemoglobin remains stable at 11.1 and 11.2. Anemia workup shows suspicious for iron deficiency anemia with low iron and 14, B12 is low normal at 28T, restarted on B12. Patient states she was taking B12 after his bariatric surgery however he stopped. GI consult is pending in view of his positive FOBT, and ANTONY. Patient states he was taking a liquids secondary to A. fib, also DVT in 2012, and PE in 2013. Patient states he has his EGD in 2013 at the time he had bariatric surgery, showing 2 small peptic ulcers, which was resolved after that. I discussed the case with the patient and recommended to hold Eliquis in the view of possible GI bleed, risks including but not limited to recurrence PE , DVT, stroke, organ dysfunction and or are explained to the patient. He verbalized understanding and agrees to stop ELIQUIS for now. This is more than benefits of this medicine. Patient's with left kidney stone and kidney cysts, patient was instructed to follow up with his urologist in 1-2 weeks upon discharge and he agrees. 05/02/2018 Patient still has periumbilical/epigastric abdominal pain. still has epigastric tenderness, which is mild. had bloody bowel movement on on 05/02, no more blood in stool. His blood pressure is only low normal side and dropped from 129/78, to 100/63, however his hemoglobin remains stable at 11.1 and 11.2. Anemia workup shows suspicious for iron deficiency anemia with low iron and ferretin. B12 is low normal at 283, restarted on B12. GI consult is pending in view of his positive FOBT, and ANTONY. reconsulted today Patient states he was taking Eliquis secondary to A. fib, also DVT in 2012, and PE in 2014. Patient states he has his EGD in 2013 at the time he had bariatric surgery, showing 2 small peptic ulcers, which was resolved after that. I discussed the case with the patient and recommended to hold Eliquis in the view of possible GI bleed, risks including but not limited to recurrence PE, DVT, stroke, organ dysfunction and or are explained to the patient. He verbalized understanding and agrees to stop ELIQUIS for now. This is more than benefits of this medicine. will advance diet Patient's with left kidney stone and kidney cysts, patient was instructed to follow up with his urologist in 1-2 weeks upon discharge and he agrees. CONSTITUTIONAL: No fever, no malaise, no fatigue. HEENT: No recent visual problems or hearing problems. Denied any sore throat. CARDIOVASCULAR: No orthopnea, PND, no palpitations, no syncope. PULMONARY: No shortness of breath, no cough, no hemoptysis. GASTROINTESTINAL: No diarrhea, no nausea, no vomiting. Normoactive bowel sounds. NEUROLOGICAL: No headaches, no weakness, no numbness. HEMATOLOGICAL: Denies any bleeding or petechiae. GENITOURINARY: Denies any burning micturition, frequency, or urgency. MUSCULOSKELETAL/RHEUMATOLOGICAL: Denies any joint pain, swelling, or any muscle pain. ENDOCRINE: Denies any polyuria or polydipsia. Objective - Vital Signs Vital signs: Vital Signs Temp 98.4 F 05/03/18 14:15 Pulse 68 05/03/18 14:15 Resp 12 05/03/18 14:15 BP 90/59 05/03/18 14:15 Pulse Ox 94 L 05/03/18 14:15 Intake & Output 05/03/18 05/03/18 05/04/18 06:59 18:59 06:59 Intake Total 240 510 240 Balance 240 510 240 Intake: Oral 240 510 240 Other: Voiding Method Toilet # Voids 3 1 - Exam GENERAL: The patient is alert and oriented x3, not in any acute distress. Well developed, well nourished. HEENT: Pupils are round and equally reacting to light. EOMI. No scleral icterus. No conjunctival pallor. Normocephalic, atraumatic. No pharyngeal erythema. No thyromegaly. CARDIOVASCULAR: S1 and S2 present. No murmurs, rubs, or gallops. PULMONARY: Chest is clear to auscultation, no wheezing or crackles. ABDOMEN: Soft, nontender, nondistended, normoactive bowel sounds. No palpable organomegaly. MUSCULOSKELETAL: No joint swelling or deformity. EXTREMITIES: No cyanosis, clubbing, or pedal edema. NEUROLOGICAL: Gross neurological examination did not reveal any focal deficits. SKIN: No rashes. - Labs CBC & Chem 7: 05/03/18 08:15 05/03/18 08:15 Labs: Abnormal Lab Results - Last 24 Hours (Table) 05/03/18 05/03/18 Range/Units 08: 08:15 WBC 3.6 L (3.8-10.6) k/uL RBC 3.81 L (4.30-5.90) m/uL Hgb 11.3 L (13.0-17.5) gm/dL Hct 35.2 L (39.0-53.0) % Lymphocytes # 0.7 L (1.0-4.8) k/uL Sodium 135 L (137-145) mmol/L BUN 7 L (9-20) mg/dL Glucose 119 H (74-99) mg/dL Assessment and Plan Plan: -Abdominal pain, with positive FOBT. We'll call surgical/GI consult. Check iron profile: ANTONY -alcohol abuse, continue with vitamin D therapy and CIWA protocol -Anemia, continue with anemia workup, FOBT is positive, ANTONY , low normal B12: replacement started , pt is instructed to f/u with his pcp -history of pulmonary embolism of the left lung on Eliquis 5 mg bid (on hold for GI bleed), pt agrees to risks of holding eliquis , see above -h/o renal cancer , f/u as oupt -left kid stone (8 mm) and kid cysts f/u with urologist as outpt -BPH, c/w same treatment -h/o diverticulitis, not active issue, -HTN, c/w same treatment pt understands the risks of holding Eliquis including but not limited to PE,DVT , stroke , organ dysfunction and/or , explained to him DVT Px: dc eliquis, mechanical for now GI px: Protonix PT/OT : pending prognosis is guarded
[2018-05-03] MEDS: LORazepam 2 MG/ML INJ IV PRN (23:32)
[2018-05-04] MEDS: MORPHINE SULFATE 4 MG/ML SYRINGE IV PRN ×3 (05:18→22:29)
[2018-05-04 07:19] LABS: Basophils % (A) 0 %; Eosinophils # (A) 0.1 k/uL (0-0.7); Eosinophils % (A) 2 %; Lymphocytes # (A) 0.6 k/uL (1.0-4.8); Lymphocytes % (A) 15 %; MCH 30.1 pg (25.0-35.0); MCHC 32.4 g/dL (31.0-37.0); MCV 92.8 fL (80.0-100.0); Mean Platelet Volume 7.9; Monocytes # (A) 0.3 k/uL (0-1.0); Monocytes % (A) 7 %; Neutrophils # (A) 2.9 k/uL (1.3-7.7); Neutrophils % (A) 72 %; Platelet Count 206 k/uL (150-450); RBC 3.66 m/uL (4.30-5.90); RDW 15.7 % (11.5-15.5); WBC 3.9 k/uL (3.8-10.6)
[2018-05-04 07:29] LABS: Calcium 8.4 mg/dL (8.4-10.2); Potassium 3.7 mmol/L (3.5-5.1)
[2018-05-04] MEDS: PANTOPRAZOLE 40 MG/10 ML VIAL IVP SCH ×2 (08:30→08:31)
[2018-05-04] MEDS: SODIUM CHLORIDE 0.9% 1,000 ML IV SCH ×2 (09:40→22:49)
--- NOTE | 2018-05-04 11:28 | P.PN ---
Subjective Progress Note Date: 05/04/18 Principal diagnosis: GI bleed Presently denies hematemesis hematochezia or melena. Hemoglobin 11. Mild lower abdominal discomfort. Afebrile. Objective - Vital Signs Vital signs: Vital Signs Temp 98.6 F 05/04/18 07:10 Pulse 82 05/04/18 07:10 Resp 14 05/04/18 07:10 BP 122/72 05/04/18 07:10 Pulse Ox 94 L 05/04/18 07:10 Intake & Output 05/03/18 05/04/18 05/04/18 18:59 06:59 18:59 Intake Total 510 790 Balance 510 790 Intake: Oral 510 790 Other: Voiding Method Toilet # Voids 1 2 - Exam General appearance: The patient is alert, oriented, in no acute distress. HET: Head is normocephalic and atraumatic. Pupils are equal and reactive. Oropharynx is clear without lesions. Neck: Supple without lymphadenopathy. Trachea midline. Heart: S1 S2. Lungs: No crackles or wheezes are heard. Abdomen: Soft, mild bilateral lower abdominal tenderness, nondistended with bowel sounds. No peritoneal signs. No palpable organomegaly or masses. Extremities: Normal skin color and turgor. No cyanosis, rash, ulceration, clubbing, or edema. Radial and pedal pulses are 2/4 bilaterally. Neurological: No focal deficits. Strength and sensation are grossly intact. - Labs CBC & Chem 7: 05/04/18 06:39 05/04/18 06:39 Labs: Abnormal Lab Results - Last 24 Hours (Table) 05/04/18 05/04/18 Range/Units 06:39 06:39 RBC 3.66 L (4.30-5.90) m/uL Hgb 11.0 L (13.0-17.5) gm/dL Hct 34.0 L (39.0-53.0) % RDW 15.7 H (11.5-15.5) % Lymphocytes # 0.6 L (1.0-4.8) k/uL Sodium 136 L (137-145) mmol/L BUN 8 L (9-20) mg/dL Assessment and Plan (1) Rectal bleeding Current Visit: Yes Status: Acute Code(s): K62.5 - HEMORRHAGE OF ANUS AND RECTUM SNOMED Code(s): 53186564 (2) Anemia Current Visit: Yes Status: Acute Code(s): D64.9 - ANEMIA, UNSPECIFIED SNOMED Code(s): 649077212 (3) Anemia due to acute blood loss Current Visit: Yes Status: Acute Code(s): D62 - ACUTE POSTHEMORRHAGIC ANEMIA SNOMED Code(s): 180760648 (4) History of Bibi-en-Y gastric bypass Current Visit: Yes Status: Acute Code(s): Z98.84 - BARIATRIC SURGERY STATUS SNOMED Code(s): 525895341 (5) H/O ETOH abuse Current Visit: Yes Status: Acute Code(s): Z87.898 - PERSONAL HISTORY OF OTHER SPECIFIED CONDITIONS SNOMED Code(s): 841745873 (6) Colon, diverticulosis Current Visit: Yes Status: Chronic Code(s): K57.30 - DVRTCLOS OF LG INT W/O PERFORATION OR ABSCESS W/O BLEEDING SNOMED Code(s): 604975667 Plan: 1. EGD colonoscopy tomorrow. 2. Clear liquid diet nothing by mouth after midnight. Continue to hold antiplatelet regulation. Continue GI prophylaxis. CBC monitoring. The weatherization specialist has discussed the risks, benefits and alternative therapies for the above-mentioned procedure and for both sedation/analgesia as well as necessary blood product administration, if indicated, as they pertain to this patient. The patient has indicated understanding and acceptance of the risks and procedures discussed. Assessment and plan of care discussed with Dr. Jimenes
[2018-05-04] MEDS: FOLIC ACID 1 MG TAB PO SCH (13:50)
[2018-05-04] MEDS: THIAMINE 100 MG TAB PO SCH ×2 (13:50→18:18)
[2018-05-04] MEDS: MULTIVITAMINS, THERA 1 EACH TAB PO SCH (13:50)
[2018-05-04] MEDS: CYANOCOBALAMIN 500 MCG TAB PO SCH (13:51)
[2018-05-04] MEDS ORDERED: BISACODYL 5 MG TABLET.DR PO ONE (14:00)
[2018-05-04] MEDS ORDERED: PEG 3350-NA SULF,BICARB,CL/KCL 4,000 ML BOTTLE PO ONE (16:00)
--- NOTE | 2018-05-04 16:08 | P.PN ---
Subjective This is a pleasant 67 years old male with past medical history of chronic relation, history of pulmonary embolism of the left lung on liquids 5 mg, recurrent pancreatitis with history of alcohol abuse, recently diagnosed renal cell carcinoma. BPH, diverticulitis, history of benign colonic polyps, multiple arthritis/arthralgia, abdominal hernia, osteoarthritis, status post bariatric surgery and bowel resection, history of cholecystectomy. This time he presents because of abdominal pain` of one-day duration, abdominal pain is around the umbilicus and sometimes epigastric , dull in sensation , was very severe yesterday 06/30, came down to 3/10 today after pain medication. No associated nausea vomiting. Patient complains from loose bowel movement of more than 2 months in duration with some blood in it on and off. He had EGD/ colonoscopy about 3 years ago as per patient. He has history of bowel resection in 2012 for perforated bowel, unknown reason why. Patient states he has history of right kidney tumor is being treated about 1 year and a half by his urologist and [facility] WITH cryotherapy. He supposed to follow up with his urologist for this month. Patient states is going to call and make an appointment this month. On the computed tomography scan of the abdomen and it shows left nonobstructing kidney stone of 8 mm, patient informed and instructed to follow up with his urologist and he agrees within 1-2 weeks Also admits to drinking alcohol 5-6 drinks, drinks 5-6 days a week. No history of smoking or illicit drug abuse as per patient. In the ED vitals were stable, CBC was unremarkable except for mild anemia, BMP showing sodium 139, potassium 4.2, creatinine 1.02, LFTs were unremarkable. Lipase 63 which is within normal limits. UA is negative but has positive occult blood in stool. CT of the abdomen and pelvis with IV contrast showing, 8 mm left kidney stone with no hydronephrosis. EKG shows normal sinus rhythm at 73 BPM, no significant ST T changes, QTC 462 05/02/2018 Patient periumbilical/epigastric abdominal pain is improving, still has epigastric tenderness, which is mild. Patient has formed bowel movement this morning, associated with some blood in it. His blood pressure is only low normal side and dropped from 129/78, to 100/63, however his hemoglobin remains stable at 11.1 and 11.2. Anemia workup shows suspicious for iron deficiency anemia with low iron and 14, B12 is low normal at 28T, restarted on B12. Patient states she was taking B12 after his bariatric surgery however he stopped. GI consult is pending in view of his positive FOBT, and ANTONY. Patient states he was taking a liquids secondary to A. fib, also DVT in 2012, and PE in 2013. Patient states he has his EGD in 2013 at the time he had bariatric surgery, showing 2 small peptic ulcers, which was resolved after that. I discussed the case with the patient and recommended to hold Eliquis in the view of possible GI bleed, risks including but not limited to recurrence PE , DVT, stroke, organ dysfunction and or are explained to the patient. He verbalized understanding and agrees to stop ELIQUIS for now. This is more than benefits of this medicine. Patient's with left kidney stone and kidney cysts, patient was instructed to follow up with his urologist in 1-2 weeks upon discharge and he agrees. 05/03/2018 Patient still has periumbilical/epigastric abdominal pain. still has epigastric tenderness, which is mild. had bloody bowel movement on on 05/02, no more blood in stool. His blood pressure is only low normal side and dropped from 129/78, to 100/63, however his hemoglobin remains stable at 11.1 and 11.2. Anemia workup shows suspicious for iron deficiency anemia with low iron and ferretin. B12 is low normal at 283, restarted on B12. GI consult is pending in view of his positive FOBT, and ANTONY. reconsulted today Patient states he was taking Eliquis secondary to A. fib, also DVT in 2012, and PE in 2013. Patient states he has his EGD in 2013 at the time he had bariatric surgery, showing 2 small peptic ulcers, which was resolved after that. I discussed the case with the patient and recommended to hold Eliquis in the view of possible GI bleed, risks including but not limited to recurrence PE, DVT, stroke, organ dysfunction and or are explained to the patient. He verbalized understanding and agrees to stop ELIQUIS for now. This is more than benefits of this medicine. will advance diet Patient's with left kidney stone and kidney cysts, patient was instructed to follow up with his urologist in 1-2 weeks upon discharge and he agrees. 05/04/2018 Patient still has periumbilical/epigastric abdominal pain. still has epigastric tenderness, which is mild. had bloody bowel movement on on 05/02, no more blood in stool. His blood pressure is only low normal side and dropped from 129/78, to 100/63, however his hemoglobin remains stable at 11.1 and 11.2. Anemia workup shows suspicious for iron deficiency anemia with low iron and ferretin. B12 is low normal at 283, restarted on B12. GI consult is pending in view of his positive FOBT, and ANTONY. Patient is going for EGD/colonoscopy on 05/05/2018 Patient states he was taking Eliquis secondary to A. fib, also DVT in 2012, and PE in 2013. Patient states he has his EGD in 2013 at the time he had bariatric surgery, showing 2 small peptic ulcers, which was resolved after that. I discussed the case with the patient and recommended to hold Eliquis in the view of possible GI bleed, risks including but not limited to recurrence PE, DVT, stroke, organ dysfunction and or are explained to the patient. He verbalized understanding and agrees to stop ELIQUIS for now. This is more than benefits of this medicine. will advance diet Patient's with left kidney stone and kidney cysts, patient was instructed to follow up with his urologist in 1-2 weeks upon discharge and he agrees. CONSTITUTIONAL: No fever, no malaise, no fatigue. HEENT: No recent visual problems or hearing problems. Denied any sore throat. CARDIOVASCULAR: No orthopnea, PND, no palpitations, no syncope. PULMONARY: No shortness of breath, no cough, no hemoptysis. GASTROINTESTINAL: No diarrhea, no nausea, no vomiting. Normoactive bowel sounds. NEUROLOGICAL: No headaches, no weakness, no numbness. HEMATOLOGICAL: Denies any bleeding or petechiae. GENITOURINARY: Denies any burning micturition, frequency, or urgency. MUSCULOSKELETAL/RHEUMATOLOGICAL: Denies any joint pain, swelling, or any muscle pain. ENDOCRINE: Denies any polyuria or polydipsia. Objective - Vital Signs Vital signs: Vital Signs Temp 98.6 F 05/04/18 15:00 Pulse 86 05/04/18 15:00 Resp 15 05/04/18 15:00 BP 124/72 05/04/18 15:00 Pulse Ox 95 05/04/18 15:00 Intake & Output 05/03/18 05/04/18 05/04/18 18:59 06:59 18:59 Intake Total 510 790 Balance 510 790 Intake: Oral 510 790 Other: Voiding Method Toilet # Voids 1 2 2 - Exam GENERAL: The patient is alert and oriented x3, not in any acute distress. Well developed, well nourished. HEENT: Pupils are round and equally reacting to light. EOMI. No scleral icterus. No conjunctival pallor. Normocephalic, atraumatic. No pharyngeal erythema. No thyromegaly. CARDIOVASCULAR: S1 and S2 present. No murmurs, rubs, or gallops. PULMONARY: Chest is clear to auscultation, no wheezing or crackles. ABDOMEN: Soft, nontender, nondistended, normoactive bowel sounds. No palpable organomegaly. MUSCULOSKELETAL: No joint swelling or deformity. EXTREMITIES: No cyanosis, clubbing, or pedal edema. NEUROLOGICAL: Gross neurological examination did not reveal any focal deficits. SKIN: No rashes. - Labs CBC & Chem 7: 05/04/18 06:39 05/04/18 06:39 Labs: Abnormal Lab Results - Last 24 Hours (Table) 05/04/18 05/04/18 Range/Units 06:39 06:39 RBC 3.66 L (4.30-5.90) m/uL Hgb 11.0 L (13.0-17.5) gm/dL Hct 34.0 L (39.0-53.0) % RDW 15.7 H (11.5-15.5) % Lymphocytes # 0.6 L (1.0-4.8) k/uL Sodium 136 L (137-145) mmol/L BUN 8 L (9-20) mg/dL Assessment and Plan Plan: -Abdominal pain, with positive FOBT. We'll call surgical/GI consult. Check iron profile: ANTONY -alcohol abuse, continue with vitamin D therapy and CIWA protocol -Anemia, continue with anemia workup, FOBT is positive, ANTONY , low normal B12: replacement started , pt is instructed to f/u with his pcp -history of pulmonary embolism of the left lung on Eliquis 5 mg bid (on hold for GI bleed), pt agrees to risks of holding eliquis , see above -h/o renal cancer , f/u as oupt -left kid stone (8 mm) and kid cysts f/u with urologist as outpt -BPH, c/w same treatment -h/o diverticulitis, not active issue, -HTN, c/w same treatment pt understands the risks of holding Eliquis including but not limited to PE,DVT , stroke , organ dysfunction and/or , explained to him DVT Px: dc eliquis, mechanical for now GI px: Protonix PT/OT : pending prognosis is guarded
[2018-05-04] MEDS: PANTOPRAZOLE 40 MG TABLET PO SCH (20:13)
[2018-05-05] MEDS: MORPHINE SULFATE 4 MG/ML SYRINGE IV PRN ×2 (05:28→16:47)
[2018-05-05] MEDS: PANTOPRAZOLE 40 MG TABLET PO SCH ×2 (07:53→20:31)
[2018-05-05] MEDS ORDERED: fentaNYL (PF) 50 MCG/ML 2 ML AMP ONE (10:31)
[2018-05-05] MEDS ORDERED: MIDAZOLAM 2 MG/2 ML VIAL ONE (10:31)
[2018-05-05] MEDS ORDERED: PROPOFOL 10 MG/ML 20 ML VIAL IV ONE (10:31)
[2018-05-05] MEDS ORDERED: IV FLUID CONTINUATION 900 ML IV ONE (10:33)
--- NOTE | 2018-05-05 11:44 | P.PCN ---
Date of Procedure: 05/05/18 Postoperative Diagnosis: EGD Findings: - No evidence of GI bleed - Regular Z-line at 40 cm from incisors - Post surgical findings consistent with previous Bibi-en-Y Colonoscopy Findings: - No evidence of active GI bleed or old blood seen - 1.5cm cecal polyp removed with cold snare s/p clip placement - 5mm Ascending colon polyp removed with cold snare - Pandiverticulosis - Internal Hemorrhoids Please note, full dictation to follow.
[2018-05-05] MEDS: CYANOCOBALAMIN 500 MCG TAB PO SCH (13:09)
[2018-05-05] MEDS: FOLIC ACID 1 MG TAB PO SCH (13:09)
[2018-05-05] MEDS: MULTIVITAMINS, THERA 1 EACH TAB PO SCH (13:10)
[2018-05-05] MEDS: THIAMINE 100 MG TAB PO SCH ×2 (13:10→20:31)
--- NOTE | 2018-05-05 14:59 | P.PCN ---
Date of Procedure: 05/05/18 Description of Procedure: Brief history: Patient is a pleasant 68-year-old male who presents to the hospital with complaints of abdominal pain and bright red blood per rectum. The patient's has a past medical history significant for a Bibi-en-Y procedure and was found to be anemic on presentation. Procedure performed: Esophagogastroduodenoscopy Colonoscopy Preoperative diagnosis: Anesthesia: MAC Procedure: After informed consent was obtained from the patient was brought into the endoscopy unit and IV sedation was administered by anesthesia under continuous monitoring. Initially upper endoscopy was done. The Olympus GF 190 video endoscope was inserted inserted into the mouth and esophagus intubated without any difficulty and was gradually advanced into the stomach where changes consistent with the patient's previous Bibi-en-Y surgery were noted. The endoscope was advanced down both limbs of the Bibi-en-Y with no evidence of ulceration, bleeding or other abnormalities noted. The anastomotic sites appeared healthy. The scope was then withdrawn into the stomach adequately insufflated with air and upon careful examination with no abnormalities noted. The scope was then withdrawn into the esophagus. The GE junction was located at 40 cm to the incisors with a normal Z line. It appeared regular with no erythema erosions or ulcerations. Rest of the esophagus appeared normal. Patient tolerated the procedure well. At this time the patient continued to remain sedation. Initial digital rectal examination was normal. Olympus CF 180 video colonoscope was then inserted into the rectum and gradually advanced to the cecum without any difficulty. The terminal ileum was intubated and appeared unremarkable. There was a large 1.5 cm polyp found in the cecum which was successfully removed with a cold snare. There was minimal bleeding after the intervention however a clip was placed for hemostasis which was achieved. Careful examination was performed as the scope was gradually being withdrawn. A second polyp was found in the descending colon approximately 5 mm in size and see sessile polyp was also with cold snare and retrieved. The prep was excellent. The patient had pandiverticulosis with small enlarged diverticuli noted throughout the colon. The cecum, ascending colon, transverse colon, descending colon, sigmoid colon and rectum appeared otherwise normal. Retroflexion was performed in the rectum and no lesions were noted, internal hemorrhoids were seen. Patient tolerated the procedure well. Impression: 1. 1.5 cm pedunculated polyp resected by cold snare in the cecum with clip placement. 2. 5 mm ascending colon polyp retrieved with cold snare. 3. Pandiverticulosis. 4. Internal hemorrhoids Recommendations: Findings of this examination were discussed with the patient. 1. Await pathology. 2. Given the size of the patient's polyp if pathology confirms tubular adenoma the patient will need a repeat colonoscopy in 3 years. 3. Full liquid diet today with GI soft/low residual diet for the next week. The patient was then instructed to start a high-fiber diet. 4. Follow up in the GI clinic as needed.
[2018-05-05] MEDS ORDERED: HYDROcodone/APAP 5-325MG 1 EACH TAB PO PRN (19:36)
--- NOTE | 2018-05-05 20:19 | P.PN ---
Subjective This is a pleasant 67 years old male with past medical history of chronic relation, history of pulmonary embolism of the left lung on liquids 5 mg, recurrent pancreatitis with history of alcohol abuse, recently diagnosed renal cell carcinoma. BPH, diverticulitis, history of benign colonic polyps, multiple arthritis/arthralgia, abdominal hernia, osteoarthritis, status post bariatric surgery and bowel resection, history of cholecystectomy. This time he presents because of abdominal pain` of one-day duration, abdominal pain is around the umbilicus and sometimes epigastric , dull in sensation , was very severe yesterday 06/30, came down to 3/10 today after pain medication. No associated nausea vomiting. Patient complains from loose bowel movement of more than 2 months in duration with some blood in it on and off. He had EGD/ colonoscopy about 3 years ago as per patient. He has history of bowel resection in 2012 for perforated bowel, unknown reason why. Patient states he has history of right kidney tumor is being treated about 1 year and a half by his urologist and [facility] WITH cryotherapy. He supposed to follow up with his urologist for this month. Patient states is going to call and make an appointment this month. On the computed tomography scan of the abdomen and it shows left nonobstructing kidney stone of 8 mm, patient informed and instructed to follow up with his urologist and he agrees within 1-2 weeks Also admits to drinking alcohol 5-6 drinks, drinks 5-6 days a week. No history of smoking or illicit drug abuse as per patient. In the ED vitals were stable, CBC was unremarkable except for mild anemia, BMP showing sodium 139, potassium 4.2, creatinine 1.02, LFTs were unremarkable. Lipase 63 which is within normal limits. UA is negative but has positive occult blood in stool. CT of the abdomen and pelvis with IV contrast showing, 8 mm left kidney stone with no hydronephrosis. EKG shows normal sinus rhythm at 73 BPM, no significant ST T changes, QTC 462 05/02/2018 Patient periumbilical/epigastric abdominal pain is improving, still has epigastric tenderness, which is mild. Patient has formed bowel movement this morning, associated with some blood in it. His blood pressure is only low normal side and dropped from 129/78, to 100/63, however his hemoglobin remains stable at 11.1 and 11.2. Anemia workup shows suspicious for iron deficiency anemia with low iron and 14, B12 is low normal at 28T, restarted on B12. Patient states she was taking B12 after his bariatric surgery however he stopped. GI consult is pending in view of his positive FOBT, and ANTONY. Patient states he was taking a liquids secondary to A. fib, also DVT in 2012, and PE in 2013. Patient states he has his EGD in 2013 at the time he had bariatric surgery, showing 2 small peptic ulcers, which was resolved after that. I discussed the case with the patient and recommended to hold Eliquis in the view of possible GI bleed, risks including but not limited to recurrence PE , DVT, stroke, organ dysfunction and or are explained to the patient. He verbalized understanding and agrees to stop ELIQUIS for now. This is more than benefits of this medicine. Patient's with left kidney stone and kidney cysts, patient was instructed to follow up with his urologist in 1-2 weeks upon discharge and he agrees. 05/03/2018 Patient still has periumbilical/epigastric abdominal pain. still has epigastric tenderness, which is mild. had bloody bowel movement on on 05/02, no more blood in stool. His blood pressure is only low normal side and dropped from 129/78, to 100/63, however his hemoglobin remains stable at 11.1 and 11.2. Anemia workup shows suspicious for iron deficiency anemia with low iron and ferretin. B12 is low normal at 283, restarted on B12. GI consult is pending in view of his positive FOBT, and ANTONY. reconsulted today Patient states he was taking Eliquis secondary to A. fib, also DVT in 2012, and PE in 2013. Patient states he has his EGD in 2013 at the time he had bariatric surgery, showing 2 small peptic ulcers, which was resolved after that. I discussed the case with the patient and recommended to hold Eliquis in the view of possible GI bleed, risks including but not limited to recurrence PE, DVT, stroke, organ dysfunction and or are explained to the patient. He verbalized understanding and agrees to stop ELIQUIS for now. This is more than benefits of this medicine. will advance diet Patient's with left kidney stone and kidney cysts, patient was instructed to follow up with his urologist in 1-2 weeks upon discharge and he agrees. 05/04/2018 Patient still has periumbilical/epigastric abdominal pain. still has epigastric tenderness, which is mild. had bloody bowel movement on on 05/02, no more blood in stool. His blood pressure is only low normal side and dropped from 129/78, to 100/63, however his hemoglobin remains stable at 11.1 and 11.2. Anemia workup shows suspicious for iron deficiency anemia with low iron and ferretin. B12 is low normal at 283, restarted on B12. GI consult is pending in view of his positive FOBT, and ANTONY. Patient is going for EGD/colonoscopy on 05/05/2018 Patient states he was taking Eliquis secondary to A. fib, also DVT in 2012, and PE in 2013. Patient states he has his EGD in 2013 at the time he had bariatric surgery, showing 2 small peptic ulcers, which was resolved after that. I discussed the case with the patient and recommended to hold Eliquis in the view of possible GI bleed, risks including but not limited to recurrence PE, DVT, stroke, organ dysfunction and or are explained to the patient. He verbalized understanding and agrees to stop ELIQUIS for now. This is more than benefits of this medicine. will advance diet Patient's with left kidney stone and kidney cysts, patient was instructed to follow up with his urologist in 1-2 weeks upon discharge and he agrees. 05/05/2018 pt is s/p EGD and colonscopy today by GI team , with no evidence of active GI bleed. EGD: No evidence of GI bleed Post surgical findings consistent with previous Bibi-en-Y. Colonoscopy: No evidence of active GI bleed or old blood seen + 1.5cm cecal polyp removed ,5mm Ascending colon polyp removed + Pandiverticulosis + Internal Hemorrhoids Objective - Vital Signs Vital signs: Vital Signs Temp 98.0 F 05/05/18 19:27 Pulse 95 05/05/18 19:27 Resp 18 05/05/18 19:27 BP 123/68 05/05/18 19: Pulse Ox 97 05/05/18 15:00 Intake & Output 05/05/18 05/05/18 05/06/18 06:59 18:59 06:59 Intake Total 120 300 Balance 120 300 Intake: IV 300 Intake, IV Titration 120 Amount Sodium Chloride 0.9% 1, 120 000 ml @ 20 mls/hr IV . Q24H [facility] Rx#:[id number] Other: # Voids 4 2 # Bowel Movements 1 - Exam GENERAL: The patient is alert and oriented x3, not in any acute distress. Well developed, well nourished. HEENT: Pupils are round and equally reacting to light. EOMI. No scleral icterus. No conjunctival pallor. Normocephalic, atraumatic. No pharyngeal erythema. No thyromegaly. CARDIOVASCULAR: S1 and S2 present. No murmurs, rubs, or gallops. PULMONARY: Chest is clear to auscultation, no wheezing or crackles. ABDOMEN: Soft, nontender, nondistended, normoactive bowel sounds. No palpable organomegaly. MUSCULOSKELETAL: No joint swelling or deformity. EXTREMITIES: No cyanosis, clubbing, or pedal edema. NEUROLOGICAL: Gross neurological examination did not reveal any focal deficits. SKIN: No rashes. - Labs CBC & Chem 7: 05/04/18 06:39 08 06:39 Assessment and Plan Plan: -Abdominal pain, with positive FOBT. We'll call surgical/GI consult. Check iron profile: ANTONY -alcohol abuse, continue with vitamin D therapy and CIWA protocol -Anemia, continue with anemia workup, FOBT is positive, ANTONY , low normal B12: replacement started , pt is instructed to f/u with his pcp -history of pulmonary embolism of the left lung on Eliquis 5 mg bid (on hold for GI bleed), pt agrees to risks of holding eliquis , see above -h/o renal cancer , f/u as oupt -left kid stone (8 mm) and kid cysts f/u with urologist as outpt -BPH, c/w same treatment -h/o diverticulitis, not active issue, -HTN, c/w same treatment pt understands the risks of holding Eliquis including but not limited to PE,DVT , stroke , organ dysfunction and/or , explained to him DVT Px: dc eliquis, mechanical for now GI px: Protonix PT/OT : pending prognosis is guarded
[2018-05-05] MEDS: SODIUM CHLORIDE 0.9% 1,000 ML IV SCH (22:33)
[2018-05-06 00:29] VITALS: RESP 16
[2018-05-06] MEDS: FOLIC ACID 1 MG TAB PO SCH (08:41)
[2018-05-06] MEDS: CYANOCOBALAMIN 500 MCG TAB PO SCH (08:41)
[2018-05-06] MEDS: MULTIVITAMINS, THERA 1 EACH TAB PO SCH (08:42)
[2018-05-06] MEDS: PANTOPRAZOLE 40 MG TABLET PO SCH (08:42)
[2018-05-06] MEDS: THIAMINE 100 MG TAB PO SCH ×2 (08:42→18:42)
[2018-05-06 14:55] VITALS: BP 125/82; PULSE 73; TEMP 98.1
[2018-05-06 17:47] LABS: Basophils % (A) 0 %; Eosinophils # (A) 0.1 k/uL (0-0.7); Eosinophils % (A) 2 %; HCT 36.2 % (39.0-53.0); HGB 11.4 gm/dL (13.0-17.5); Lymphocytes # (A) 0.7 k/uL (1.0-4.8); Lymphocytes % (A) 19 %; MCH 29.2 pg (25.0-35.0); MCHC 31.5 g/dL (31.0-37.0); MCV 92.8 fL (80.0-100.0); Monocytes # (A) 0.3 k/uL (0-1.0); Monocytes % (A) 9 %; Neutrophils # (A) 2.5 k/uL (1.3-7.7); Neutrophils % (A) 66 %; Platelet Count 226 k/uL (150-450); RBC 3.89 m/uL (4.30-5.90); RDW 15.7 % (11.5-15.5); WBC 3.7 k/uL (3.8-10.6)
--- NOTE | 2018-05-06 22:56 | P.DS ---
Providers Date of admission: 04/30/18 22:02 Attending physician: Jamal Steele Consults: 04/30/18 22:02 Consult Physician Routine Consulting Provider: Rashi Coughlin Consult Reason/Comments: Ab pain, GI bleed Do you want consulting provider notified?: Yes 05/03/18 19:48 Consult Physician Urgent Consulting Provider: Rashi Coughlin Consult Reason/Comments: blood in stool and ANTONY Do you want consulting provider notified?: Yes Primary care physician: Rebekah [facility] Course: This is a pleasant 67 years old male with past medical history of chronic relation, history of pulmonary embolism of the left lung on liquids 5 mg, recurrent pancreatitis with history of alcohol abuse, recently diagnosed renal cell carcinoma. BPH, diverticulitis, history of benign colonic polyps, multiple arthritis/arthralgia, abdominal hernia, osteoarthritis, status post bariatric surgery and bowel resection, history of cholecystectomy. This time he presents because of epigastric abdominal pain of one-day duration, with positive occult blood in the stool. Patient is on Eliquis for atrial fibrillation, history of PE and DVT. Patient has been evaluated by c iron worker team and he underwent EGD/ colonoscopy on 05/05/18. EGD: No evidence of GI bleed Post surgical findings consistent with previous Bibi-en-Y. Colonoscopy: No evidence of active GI bleed or old blood seen + 1.5 cm cecal polyp removed ,and 5mm Ascending colon polyp removed + Pandiverticulosis + Internal Hemorrhoids Discussed the case with the c iron worker attending and he recommended to start Eliquis tomorrow. Risks including but not limited to bleed, GI bleed, Brain bleed, organ dysfunction and/or and explained to the patient and he verbalized understanding and acceptance to continue with it. Benefits more than risks for Eliquis for now. Prescription for Protonix is a provided for the patient On the day of discharge, patient has regular bowel movements, and his epigastric abdominal pain is resolved. No chest pain, dyspnea or change in urine or bowel habits. Patient was cleared by c iron worker team for discharge, problem list and management plan were discussed with the patient and he is in agreement, patient is found stable and can be discharged home however he needs follow-up as an outpatient. Appointments as made for the patient with his c iron worker and PCP which she agrees with these including their timing. GENERAL: The patient is alert and oriented x3, not in any acute distress. Well developed, well nourished. HEENT: Pupils are round and equally reacting to light. EOMI. No scleral icterus. No conjunctival pallor. Normocephalic, atraumatic. No pharyngeal erythema. No thyromegaly. CARDIOVASCULAR: S1 and S2 present. No murmurs, rubs, or gallops. PULMONARY: Chest is clear to auscultation, no wheezing or crackles. ABDOMEN: Soft, nontender, nondistended, normoactive bowel sounds. No palpable organomegaly. MUSCULOSKELETAL: No joint swelling or deformity. EXTREMITIES: No cyanosis, clubbing, or pedal edema. NEUROLOGICAL: Gross neurological examination did not reveal any focal deficits. SKIN: No rashes. Time spent more than 35 minutes Patient Condition at Discharge: Good Plan - Discharge Summary Discharge Rx Participant: No New Discharge Prescriptions: New Acetaminophen Tab [Tylenol] 650 mg PO Q6HR PRN tab PRN Reason: Mild Pain Or Fever > 100.5 Cyanocobalamin [Vitamin B-12] 1,000 mcg PO DAILY@1200 #30 tab Folic Acid 1 mg PO DAILY@1200 #30 tab Pantoprazole [Protonix] 40 mg PO DAILY #30 tablet.[address] Burgess Allopurinol [Zyloprim] 300 mg PO DAILY Cholecalciferol [Vitamin D3] 5,000 unit PO DAILY Metoprolol Tartrate [Lopressor] 25 mg PO BID Multivitamin [Men's Multi-Vitamin] 1 tab PO DAILY #30 Thiamine [Vitamin B-1] 100 mg PO DAILY Apixaban [Eliquis] 5 mg PO BID #0 Discontinued amLODIPine [Norvasc] 5 mg PO DAILY Discharge Medication List Allopurinol [Zyloprim] 300 mg PO DAILY 02/22/14 [History] Cholecalciferol [Vitamin D3] 5,000 unit PO DAILY 07/26/14 [History] Metoprolol Tartrate [Lopressor] 25 mg PO BID 06/28/17 [History] Multivitamin [Men's Multi-Vitamin] 1 tab PO DAILY #30 07/01/17 [Rx] Thiamine [Vitamin B-1] 100 mg PO DAILY 11/12/17 [History] Acetaminophen Tab [Tylenol] 650 mg PO Q6HR PRN tab 05/06/18 [Rx] Apixaban [Eliquis] 5 mg PO BID #0 05/06/18 [Rx] Cyanocobalamin [Vitamin B-12] 1,000 mcg PO DAILY@1200 #30 tab 05/06/18 [Rx] Folic Acid 1 mg PO DAILY@1200 #30 tab 05/06/18 [Rx] Pantoprazole [Protonix] 40 mg PO DAILY #30 tablet. 05/06/18 [Rx] Follow up Appointment(s)/Referral(s): follow up with, your urologist [Other] - 1 Week (you have the contact information as you informed the medical staff. follow up for your history of right kidney tumor, and left kidney stone ) Rebekah Hood DO [Primary Care Provider] - 05/10/18 9:00 am (with Barbara) Henrique Jimenes MD [STAFF PHYSICIAN] - 05/25/18 2:00 pm Activity/Diet/Wound Care/Special Instructions: activity is limited till you see your doctor diet: low cholesterol , cardiac diet start taking your blood thinner (Eliquis) on 05/07/2018 follow up the biopsy results of your EGD/colonoscopy with your doctor office at your appointment Discharge Disposition: HOME WITH HOME HEALTH SERVICES
--- NOTE | 2018-05-10 08:47 | CDI ---
Last Revision, August 2017 Documentation Clarification Form Date: 05/10/18 From: Jenny Ran Gisselle Carr, Food Safety Officer Hours-8:30 am & 5 pm M-F Admit Date: 04/30/2018 10:02:00 PM Patient Name: Martin Curtis Visit Number: [id number] Discharge Date: 05/06/18 ATTENTION: The Clinical Documentation Specialists (CDI) and [facility] Coding Staff appreciate your assistance in clarifying documentation. Please respond to the clarification below the line at the bottom and electronically sign. The CDI & [facility] Coding staff will review the response and follow-up if needed. Please note: Queries are made part of the Legal Health Record. If you have any questions, please contact the author of this message via ITS. Jet Quintero MD Atrial fibrillation is documented in the H&P, ED note, Consult and DS. EKG/telemetry: sinus rhythm w occ'l premature ventrilcular complexes adn premature atrial completexes Treatment: Eliiquis In your professional opinion, can you please clarify the type of atrial fibrillation, if known? Chronic/Permanent Paroxysmal Persistent Other, please specify Unable to determine Unable to determine MTDD
--- NOTE | 2018-05-10 09:00 | CDI ---
Last Revision, August 2017 Documentation Clarification Form Date: 05/10/18 From: Jenny Ran Gisselle Carr, Acds Block 1 Operator Hours-8:30 am & 5 pm M-F Admit Date: 04/30/2018 10:02:00 PM Patient Name: Martin Curtis Visit Number: [id number] Discharge Date: ATTENTION: The Clinical Documentation Specialists (CDI) and [facility] Coding Staff appreciate your assistance in clarifying documentation. Please respond to the clarification below the line at the bottom and electronically sign. The CDI & [facility] [facility] [employer] Coding staff will review the response and follow-up if needed. Please note: Queries are made part of the Legal Health Record. If you have any questions, please contact the author of this message via ITS. Dr. MAC, Patient was admitted with abdominal pain with positive FOBT per H&P. Lab findings: Positive stool occult blood; elevated alkaline [id number] CT abd: no signs of acute abdomen, left renal calculus EGD & colonoscopy revealed polyps of cecum, ascending and descending colon; internal hemorrhoids. The patients principal diagnosis has not been clearly identified and requires clarification. In your professional opinion, can you please clarify which diagnosis, after study, accounted for the patients presenting symptoms and was the reason chiefly responsible for the admission? abdominal pain , of unkonwn eitiology , possible GI source. resolved upon discharge colonic polyp hemorrhoid disease Pandiverticulosis disease MTDD
== END 2018-05-06 19:49 | disposition home or self-care (01) | DRG 392 ==
LOC: EC 17:02 → 5MS5E 22:02 → 3SUR 05-01 17:13
PROVIDERS: ADMIT Hospitalist; ATTEND Hospitalist
PROC: 0DBH8ZX Excision of Cecum, Via Natural or Artificial Opening Endoscopic, Diagnostic (ICD-10-PCS; 2018-05-05)
PROC: 0DJ08ZZ Inspection of Upper Intestinal Tract, Via Natural or Artificial Opening Endoscopic (ICD-10-PCS; principal; 2018-05-05 10:30)
PROC: 0DBK8ZX Excision of Ascending Colon, Via Natural or Artificial Opening Endoscopic, Diagnostic (ICD-10-PCS; 2018-05-05 10:30)
PROC: 0DBM8ZX Excision of Descending Colon, Via Natural or Artificial Opening Endoscopic, Diagnostic (ICD-10-PCS; 2018-05-05 10:30)
DX: R10.9 Unspecified abdominal pain (principal); D62 Acute posthemorrhagic anemia; K92.1 Melena; I48.91 Unspecified atrial fibrillation; N28.1 Cyst of kidney, acquired; K57.30 Diverticulosis of large intestine without perforation or abscess without bleeding; D12.2 Benign neoplasm of ascending colon; D12.0 Benign neoplasm of cecum; K64.8 Other hemorrhoids; D12.4 Benign neoplasm of descending colon; F10.10 Alcohol abuse, uncomplicated; N20.0 Calculus of kidney; I10 Essential (primary) hypertension; K58.9 Irritable bowel syndrome, unspecified; K21.9 Gastro-esophageal reflux disease without esophagitis; M19.91 Primary osteoarthritis, unspecified site; N40.0 Benign prostatic hyperplasia without lower urinary tract symptoms; Z79.01 Long term (current) use of anticoagulants; Z79.899 Other long term (current) drug therapy; Z85.528 Personal history of other malignant neoplasm of kidney; Z90.49 Acquired absence of other specified parts of digestive tract; Z98.84 Bariatric surgery status; Z96.652 Presence of left artificial knee joint; Z87.891 Personal history of nicotine dependence; Z87.19 Personal history of other diseases of the digestive system; Z86.711 Personal history of pulmonary embolism; Z86.718 Personal history of other venous thrombosis and embolism; Z87.11 Personal history of peptic ulcer disease; Z86.010 Personal history of colon polyps; Z82.49 Family history of ischemic heart disease and other diseases of the circulatory system; Z82.5 Family history of asthma and other chronic lower respiratory diseases; Z80.41 Family history of malignant neoplasm of ovary; Z80.3 Family history of malignant neoplasm of breast
CPT/HCPCS: 36415; 43235; 45382; 45385; 74018; 74177; 80048; 80053; 81003; 82150; 82272; 82607; 82728; 82746; 83540; 83550; 83690; 85025; 85610; 85730; 88305; 93005; 96361; 96374; 96375; 99285

== ENCOUNTER 2018-06-26 02:32 | Observation (INO) | payer MEDICARE, OTHER ==
[2018-06-26] MEDS ORDERED: NALOXONE 0.4 MG/ML 1 ML VIAL IV PRN (03:39)
--- NOTE | 2018-06-26 03:39 | ED ---
General Adult HPI - General Chief complaint: ENT Stated complaint: Abdominal Pain Time Seen by Provider: 06/26/18 03:37 Source: patient, RN notes reviewed Mode of arrival: ambulatory Limitations: no limitations - History of Present Illness Initial comments: 68-year-old male with a past medical history of atrial fibrillation, renal cancer, alcohol abuse presents to the emergency department for a chief complaint of foreign body sensation in the throat and chest x 8 hours. Patient states he was eating pork chops at about 8 hours ago when this occurred. Patient states he has been trying to cough it up all evening. Patient states it is painful when he swallows and he feels a foreign body sensation. Patient has no other complaints at this time including shortness of breath, abdominal pain, nausea or vomiting, headache, or visual changes. - Related Data Home Medications Medication Instructions Recorded Confirmed Allopurinol [Zyloprim] 300 mg PO DAILY 02/22/14 06/26/18 Cholecalciferol [Vitamin D3] 5,000 unit PO DAILY 07/26/14 06/26/18 Metoprolol Tartrate [Lopressor] 25 mg PO BID 06/28/17 06/26/18 Thiamine [Vitamin B-1] 100 mg PO DAILY 11/12/17 06/26/18 Previous Rx's Medication Instructions Recorded Multivitamin [Men's Multi-Vitamin] 1 tab PO DAILY #30 07/01/17 Acetaminophen Tab [Tylenol] 650 mg PO Q6HR PRN tab 05/06/18 Apixaban [Eliquis] 5 mg PO BID #0 05/06/18 Cyanocobalamin [Vitamin B-12] 1,000 mcg PO DAILY@1200 #30 tab 05/06/18 Folic Acid 1 mg PO DAILY@1200 #30 tab 05/06/18 Pantoprazole [Protonix] 40 mg PO DAILY #30 tablet. 05/06/18 Allergies Allergy/AdvReac Type Severity Reaction Status Date / Time No Known Allergies Allergy Verified 06/26/18 02:40 Review of Systems ROS Statement: Those systems with pertinent positive or pertinent negative responses have been documented in the HPI. ROS Other: All systems not noted in ROS Statement are negative. Past Medical History Past Medical History: Atrial Fibrillation, Blood Disorder, Cancer, Osteoarthritis (OA), Pulmonary Embolus (PE) Additional Past Medical History / Comment(s): Afib/RVR, pulmonary embolism L lung, pancreatitis multiple times, ETOH abuse, recent diagnosed with R renal carcinoma with sx, BPH, past R lung pneumo with chest tube, diverticulitis, benign colon polyps, arthritis multiple joints, abdominal hernias. History of Any Multi-Drug Resistant Organisms: None Reported Past Surgical History: Bariatric Surgery, Bowel Resection, Cholecystectomy, Hernia Repair, Joint Replacement Additional Past Surgical History / Comment(s): Recent (2017) r kidney lesion cryoablation at [facility], 2012 bowel resection d/t viscus perf with colostomy later reversed , gastric sleeve converted to darrell-en-Y 08/2014-post op wound infection, paraesphogeal hiat hernia repair, R inguinal and umbilical hernia repairs, colonoscopies, L total knee arthroplasty. Past Anesthesia/Blood Transfusion Reactions: No Reported Reaction Past Psychological History: No Psychological Hx Reported Smoking Status: Former smoker Past Alcohol Use History: Heavy Past Drug Use History: None Reported - Past Family History Father Family Medical History: COPD, Myocardial Infarction (SD) Additional Family Medical History / Comment(s): Father from a SD at the age of 69yrs. Mother Family Medical History: Cancer Additional Family Medical History / Comment(s): Mother from ovarian cancer at the age of 69yrs. Sister(s) Family Medical History: Cancer Additional Family Medical History / Comment(s): at age 74yrs. Had breast cancer and a defibrillator General Exam Limitations: no limitations General appearance: alert, in no apparent distress Head exam: Present: atraumatic, normocephalic, normal inspection Eye exam: Present: normal appearance. Absent: scleral icterus, conjunctival injection ENT exam: Present: normal exam, normal oropharynx (Uvula midline), mucous membranes moist, normal external ear exam Neck exam: Present: normal inspection, full ROM. Absent: tenderness, meningismus, lymphadenopathy Respiratory exam: Present: normal lung sounds bilaterally. Absent: respiratory distress, wheezes, rales, rhonchi, stridor Cardiovascular Exam: Present: regular rate, normal rhythm, normal heart sounds. Absent: systolic murmur, diastolic murmur, rubs, gallop, clicks GI/Abdominal exam: Present: soft, normal bowel sounds. Absent: distended, tenderness, guarding, rebound, rigid Neurological exam: Present: alert, oriented X3, CN II-XII intact Psychiatric exam: Present: normal affect, normal mood Course Vital Signs 06/26/18 02:34 Temperature 97.3 F L Pulse Rate 65 Respiratory 16 Rate Blood Pressure 160/99 O2 Sat by Pulse 97 Oximetry Medical Decision Making - Medical Decision Making 68-year-old male presents to the emergency for a chief complaint of esophageal foreign body 8 hours. Patient was eating pork chops when he states a piece get stuck in his throat. Patient states the foreign body is causing a foreign body sensation and pain in his chest. Patient states the pain is worse when he swallows. He denies any shortness of breath. Patient states he has been trying to cough it up all evening but has been unsuccessful. Patient was given carbonated beverage to attempt to relax LES and allow bolus passage. However, this was unsuccessful. Dr. Sosa did contact Dr. Emanuel. Patient will be admitted. He will be getting an endoscopy in the morning. Disposition Clinical Impression: Esophageal foreign body Disposition: ADMITTED IP TO THIS [facility] Condition: Good Is patient prescribed a controlled substance at d/c from ED?: No Referrals: Rebekah Hood DO [Primary Care Provider] - 1-2 days Time of Disposition: 04:14
[2018-06-26 04:58] LABS: Anisocytosis Slight; Basophils % (A) 1 %; Eosinophils % (A) 1 %; HCT 35.2 % (39.0-53.0); HGB 11.7 gm/dL (13.0-17.5); Lymphocytes # (A) 0.6 k/uL (1.0-4.8); Lymphocytes % (A) 21 %; MCH 30.4 pg (25.0-35.0); MCHC 33.4 g/dL (31.0-37.0); Mean Platelet Volume 7.9; Monocytes # (A) 0.3 k/uL (0-1.0); Monocytes % (A) 9 %; Neutrophils # (A) 1.8 k/uL (1.3-7.7); Neutrophils % (A) 64 %; Platelet Count 288 k/uL (150-450); RBC 3.87 m/uL (4.30-5.90); RDW 16.5 % (11.5-15.5); WBC 2.8 k/uL (3.8-10.6)
[2018-06-26 05:08] LABS: INR 1.1 (<1.2); Prothrombin Time 10.9 sec (9.0-12.0)
[2018-06-26 05:09] LABS: Anion Gap 11 mmol/L; Blood Urea Nitrogen 13 mg/dL (9-20); Calcium 8.9 mg/dL (8.4-10.2); Carbon Dioxide 25 mmol/L (22-30); Chloride 108 mmol/L (98-107); Glucose 146 mg/dL (74-99); Potassium 3.8 mmol/L (3.5-5.1); Sodium 144 mmol/L (137-145)
--- NOTE | 2018-06-26 05:45 | XR ---
INDICATION: Chest pain COMPARISON: CXR 08/27/17 FINDINGS: Frontal and lateral views of the chest are obtained. The cardiomediastinal silhouette and pulmonary vascularity are normal. There are persistent linear opacities at the right lung base suggesting scarring/atelectasis. There is mild scarring/subsegmental atelectasis at the left lung base. There is no pleural effusion or pneumothorax. Regional skeleton appears intact. There are old right-sided rib fractures. IMPRESSION: 1. No acute cardiopulmonary disease. 2. Bibasilar scarring/atelectasis, right greater than left, similar to prior exam.
[2018-06-26] MEDS ORDERED: ACETAMINOPHEN TAB 325 MG TAB PO PRN (10:39)
--- NOTE | 2018-06-26 11:09 | CONS ---
CONSULTATION DATE OF DICTATION: 06/26/2018 HISTORY OF PRESENT ILLNESS: The patient is a 68-year-old pleasant white male admitted to the hospital with acute dysphagia. He was eating pork chops for dinner last night around 5 p.m., following which he could not swallow any further. He tried drinking water, with no success. He continued to have the problem, so he came to the emergency room around midnight and was subsequently admitted to the observation unit for possible endoscopic intervention this morning. On evaluating the patient this morning, he states that he is feeling much better. He feels that the food impaction has resolved. He denies any chest pain. He is able to handle secretions well. Reports no nausea, vomiting. He had a similar episode that happened about 2 years ago; it lasted for a few hours and resolved. He did not need any endoscopic intervention. He was admitted to the hospital with GI bleed two weeks ago and underwent an upper endoscopy as well as colonoscopy by Dr. Jimenes. Upper endoscopy revealed normal-appearing esophagus and evidence of gastric darrell-en-Y surgery. There was no evidence of esophageal stricture. PAST MEDICAL HISTORY: 1. Atrial fibrillation. 2. Hypertension. 3. Pulmonary embolism. 4. History of pancreatitis. 5. Alcohol abuse in the past. 6. Right renal cell carcinoma. 7. Colon polyps. PAST SURGICAL HISTORY: 1. Right kidney cryoablation. 2. Bowel resection. 3. Gastric sleeve converted into darrell-en-Y in August of 2014. 4. Paraesophageal hiatal hernia repair. 5. Umbilical hernia repair. 6. Left total knee arthroplasty. MEDICATIONS AT HOME: 1. Thiamine. 2. Protonix. 3. Lopressor. 4. Vitamin B12. 5. Vitamin D3. 6. Eliquis. 7. Zyloprim. 8. Tylenol. ALLERGIES: NONE. SOCIAL HISTORY: Remote history of smoking. No alcohol use. FAMILY HISTORY: Unremarkable. REVIEW OF SYSTEMS: CARDIOPULMONARY: He denies any chest pain or shortness of breath. GENITOURINARY: No dysuria, hematuria. MUSCULOSKELETAL: Unremarkable. SKIN: Unremarkable. ENDOCRINE: Unremarkable. PSYCHIATRY: Unremarkable. NEUROLOGY: Unremarkable. ENT/VISION: Unremarkable. CONSTITUTIONAL: No recent weight loss. No fever, chills, night sweats. PHYSICAL EXAMINATION: Blood pressure is 125/82, pulse 73, temperature 98.1. HEENT EXAMINATION: Unremarkable. Conjunctivae are pink, sclerae anicteric. Oral cavity with no lesions. NECK: No JVD or lymph node enlargement. Chest was clear to auscultation. HEART: Regular rate and rhythm. ABDOMEN: Soft. Bowel sounds are positive. Obese. No organomegaly. EXTREMITIES: No pedal edema. SKIN: No rashes. NEURO: Alert and oriented x3. No focal deficits. LABS: Labs done at the time of admission to the hospital showed WBC of 2.8, hemoglobin 11.7, platelets normal. Basic metabolic panel is within normal limits. IMPRESSION: 1. Acute food impaction that happened yesterday evening following dinner. Patient came to the emergency room early this morning, admitted to Observation. In the last 2 to 3 hours it appears that the food impaction has resolved. The patient is feeling well, able to handle his secretions. He had an upper endoscopy by Dr. Jimenes on May 05 which showed normal-appearing esophagus and evidence of gastric darrell-en-Y surgery. 2. History of atrial fibrillation, on Eliquis. RECOMMENDATIONS: Will start him on a clear liquid diet, and if he is able to tolerate it, advance to a soft diet and the patient can be discharged home with outpatient followup with Dr. Jimenes in 2 weeks. MMODL / IJN: [id number] /
[2018-06-26] MEDS: MULTIVITAMINS, THERA 1 EACH TAB PO SCH (13:56)
[2018-06-26] MEDS: HYDROcodone/APAP 5-325MG 1 EACH TAB PO PRN ×2 (14:08→20:28)
[2018-06-26] MEDS ORDERED: LORazepam 0.5 MG TAB PO PRN (15:30)
--- NOTE | 2018-06-26 16:51 | CT ---
EXAMINATION TYPE: CT chest wo con DATE OF EXAM: 06/26/2018 COMPARISON: NONE HISTORY: Patient complains of recent food bolus lodged in throat which eventually passed. Now having dysphagia and pain. CT DLP: 771 mGycm. Automated Exposure Control for Dose Reduction was Utilized. TECHNIQUE: CT scan of the thorax is performed without IV contrast. FINDINGS: LUNGS: There are healed posterior rib fractures of ribs 6 through 10 with associated likely reactive pleural thickening. The lungs are grossly clear, there is no concerning parenchymal mass or nodule id entified. Bibasilar pleural-parenchymal scarring is noted. There is no pleural effusion or pneumotho rax seen. The tracheobronchial tree is patent. MEDIASTINUM: Lack of IV contrast is noted to limit evaluation for mediastinal and especially hilar ad enopathy. There are no definitive greater than 1 cm hilar or mediastinal lymph nodes. No cardiomega ly or pericardial effusion is seen. Mild coronary artery calcifications are seen. OTHER: There is no esophageal dilation or radiopaque obstructing food bolus seen in the esophagus. Ma in tracheobronchial tree appears patent. Post surgical changes of a partial gastrectomy are seen. Low -attenuation of the hepatic parenchyma relates to hepatic steatosis. Determine 1.4 cm right adrenal g land nodule emanates from the melisa. Gallbladder is surgically absent. Pancreatic parenchymal atrophy is noted. IMPRESSION: 1. No esophageal dilatation or radiopaque foreign body within the esophagus or main tracheobronchial tree. Partial gastrectomy postsurgical changes are noted. 2. Indeterminant right adrenal gland nodule. Further evaluation with dynamic enhanced CT abdomen coul d be performed for full characterization. 3. Hepatic steatosis. 4. Healed right posterior rib fractures.
[2018-06-26] MEDS: HYDROmorphone 1 MG/ML 1 ML SYRINGE IVP PRN ×2 (17:44→23:34)
--- NOTE | 2018-06-26 18:06 | HP ---
HISTORY AND PHYSICAL DATE OF SERVICE: 06/26/2018 CHIEF COMPLAINTS: Dysphagia as well as impacted food bolus. HISTORY OF PRESENT ILLNESS: This 68-year-old gentleman with a past medical history of atrial fibrillation, history of DJD, history of pulmonary embolism, history of bariatric surgery, history of bowel obstruction, being followed by Dr. Hood in the outpatient setting, was complaining of dysphagia yesterday. The patient had a food bolus sensation after eating in the throat for 8 hours. Patient had eaten pork chops about 8 hours prior to that. Patient also subsequently had vomiting. The patient vomited a significant amount of saliva and small amount of food. The patient complains of soreness in the anterior part of the chest at this time. Gastroenterology has been asked to evaluate at this time. There is no history of any fever, rigors, chills. No history of headache, loss of consciousness, seizures. A chest x-ray was done which showed no acute cardiopulmonary disease; bibasilar scarring and atelectasis present. There is no history of fever, rigor or chills at this time. PAST MEDICAL HISTORY: 1. History of atrial fibrillation. 2. History of DJD. 3. History of pulmonary embolism. 4. Atrial fibrillation with rapid ventricular rate. 5. History of bariatric surgery. HOME MEDICATIONS: 1. Thiamine 100 mg p.o. daily. 2. Multivitamins 1 p.o. daily. 3. Lopressor 25 mg p.o. b.i.d. 4. Folic acid 1 mg p.o. daily. 5. Vitamin B12 1000 mcg p.o. daily. 6. Vitamin D3 5000 daily. 7. Eliquis 5 mg p.o. b.i.d. 8. Zyloprim 300 mg p.o. daily. ALLERGIES: NONE. FAMILY HISTORY: History of smoking, ovarian cancer. SOCIAL HISTORY: Previous history of smoking. Occasional alcohol intake. REVIEW OF SYSTEMS: ENT: No diminished hearing. No diminished vision. CARDIOVASCULAR SYSTEM: As mentioned earlier. RESPIRATORY SYSTEM: As mentioned earlier. GI: No nausea, vomiting. : No dysuria or retention. NERVOUS SYSTEM: No numbness, weakness. ALLERGY/IMMUNOLOGY: No asthma, hayfever. MUSCULOSKELETAL: As mentioned earlier. HEMATOLOGY/ONCOLOGY: No history of anemia. ENDOCRINE: No history of diabetes, hypothyroidism. CONSTITUTIONAL: As mentioned earlier. DERMATOLOGY: Negative. RHEUMATOLOGY: Negative. PSYCHIATRY: As mentioned earlier. PHYSICAL EXAMINATION: Patient is alert and oriented x3, pulse 83, blood pressure 130/78, respiration 18, temperature 97.1, pulse ox 98% on room air. HEENT: Conjunctivae normal. Oral mucosa moist. NECK: No jugular venous distention. No carotid bruit. No lymph node enlargement. CARDIOVASCULAR SYSTEM: S1, S2 muffled. RESPIRATORY SYSTEM: Breath sounds diminished at the bases. A few scattered rhonchi. No crackles. ABDOMEN: Soft, obese, nontender. No mass palpable. LEGS: No edema. No swelling. NERVOUS SYSTEM: Higher functions as mentioned earlier. Moves all 4 limbs. No focal motor or sensory deficit. LYMPHATICS: No lymph node palpable in neck, axillae or groin. SKIN: No ulcer, rash, bleeding. LABS: WBC 2.8, hemoglobin 11.7, sodium 144, potassium 3.8. ASSESSMENT: 1. Dysphagia with impacted food bolus, improving. 2. Leukopenia, anemia, mild, of undetermined etiology. 3. History of atrial fibrillation. 4. History of degenerative joint disease. 5. History of pulmonary embolism. 6. History of pancreatitis multiple times. 7. History of the ethanol abuse. 8. Right renal carcinoma. 9. History of pneumothorax, chest tube drainage. 10.History of bariatric surgery. 11.History of polyps. 12.History of cholecystectomy. 13.History of hernia repair. 14.Colostomy reversal because of the bowel perforation. 15.FULL CODE. RECOMMENDATIONS AND DISCUSSION: In this 68-year-old gentleman who presented with multiple complex medical issues, at this time I recommend to continue the current medications, continue with symptomatic treatment. Otherwise, gastroenterology consultation. I would also recommend a CT scan of the chest without IV contrast to ensure normalcy. Otherwise, prognosis is guarded because of multiple complex medical issues. Further recommendations to follow. A copy of this dictation is being forwarded to Dr. Hood, who is the primary physician. MMODL / IJN: [id number] /
[2018-06-26] MEDS: METOPROLOL TARTRATE 25 MG TAB PO SCH (20:19)
[2018-06-26] MEDS: PANTOPRAZOLE 40 MG/10 ML VIAL IVP SCH (20:19)
[2018-06-26] MEDS: HEPARIN SODIUM,PORCINE 5,000 UNIT/ML 1 ML VIAL SQ SCH (20:20)
[2018-06-26] MEDS: TEMAZEPAM 15 MG CAP PO PRN (23:36)
[2018-06-27] MEDS: HYDROmorphone 1 MG/ML 1 ML SYRINGE IVP PRN ×2 (06:09→11:48)
[2018-06-27] MEDS: HEPARIN SODIUM,PORCINE 5,000 UNIT/ML 1 ML VIAL SQ SCH ×2 (07:52→20:57)
[2018-06-27] MEDS: PANTOPRAZOLE 40 MG/10 ML VIAL IVP SCH ×2 (07:52→20:57)
[2018-06-27] MEDS: METOPROLOL TARTRATE 25 MG TAB PO SCH ×2 (07:52→20:57)
[2018-06-27] MEDS: ALLOPURINOL 300 MG TAB PO SCH (07:52)
[2018-06-27] MEDS: FOLIC ACID 1 MG TAB PO SCH (07:53)
[2018-06-27] MEDS: THIAMINE 100 MG TAB PO SCH (07:53)
--- NOTE | 2018-06-27 09:10 | PN ---
PROGRESS NOTE DATE OF SERVICE: 06/27/2018 The patient is a 68-year-old pleasant white male admitted to hospital with acute food dysphagia. He was eating a piece of pork chop and it was stuck in the mid esophagus and he was admitted for further evaluation. He was evaluated by me yesterday and by the time I saw him, he felt much better. He was given clear liquid diet and was tolerating well. This morning, he denies any new symptoms. He continues to remain on a clear liquid diet. Denies any dysphagia. He does complain of some pain in the epigastric area. He has prior history of Bibi-en-Y gastric bypass surgery many years ago. PHYSICAL EXAMINATION: He appears comfortable. No apparent distress. VITAL SIGNS: Stable. Blood pressure 140/92, pulse rate 82 per minute and afebrile. HEENT examination unremarkable. Conjunctivae pink. Sclerae anicteric. Oral cavity no lesions. Neck no jugular venous distention or lymph node enlargement. Chest was clear to auscultation. HEART: Regular rate and rhythm. ABDOMEN: Soft. Bowel sounds are positive. No organomegaly. Extremities: No pedal edema. Skin no rashes. NEUROLOGIC: Alert and oriented x3. No focal deficits. LABS: No labs from today. IMPRESSION: 1. Acute food dysphagia while eating pork chops 2 nights ago. Currently doing well on clear liquids, tolerating well. He had an upper endoscopy [address] Jimenes, which showed normal-appearing esophagus and evidence of gastric bypass surgery. No evidence of esophageal stricture. 2. Atrial fibrillation on Eliquis. RECOMMENDATIONS: Advance diet as tolerated. Continue Protonix 40 mg daily. If patient can handle a regular diet for lunch, he can be discharged home with outpatient follow up with Dr. Jimenes in 2 weeks. MMODL / IJN: [id number] /
[2018-06-27 09:55] LABS: Anisocytosis Slight; Basophils % (A) 1 %; Eosinophils # (A) 0.2 k/uL (0-0.7); Eosinophils % (A) 6 %; HCT 30.2 % (39.0-53.0); HGB 10.1 gm/dL (13.0-17.5); Lymphocytes # (A) 0.9 k/uL (1.0-4.8); Lymphocytes % (A) 27 %; MCH 30.8 pg (25.0-35.0); MCHC 33.4 g/dL (31.0-37.0); MCV 92.3 fL (80.0-100.0); Mean Platelet Volume 7.8; Monocytes # (A) 0.3 k/uL (0-1.0); Monocytes % (A) 11 %; Neutrophils # (A) 1.7 k/uL (1.3-7.7); Neutrophils % (A) 53 %; Platelet Count 223 k/uL (150-450); RBC 3.27 m/uL (4.30-5.90); RDW 16.5 % (11.5-15.5); WBC 3.2 k/uL (3.8-10.6)
[2018-06-27 10:07] LABS: Anion Gap 5 mmol/L; Blood Urea Nitrogen 12 mg/dL (9-20); Calcium 8.4 mg/dL (8.4-10.2); Carbon Dioxide 27 mmol/L (22-30); Chloride 107 mmol/L (98-107); Glucose 95 mg/dL (74-99); Potassium 3.6 mmol/L (3.5-5.1); Sodium 139 mmol/L (137-145)
[2018-06-27] MEDS: CHOLECALCIFEROL 1,000 UNIT TAB PO SCH (11:47)
[2018-06-27] MEDS: CYANOCOBALAMIN 500 MCG TAB PO SCH (11:47)
[2018-06-27] MEDS: MULTIVITAMINS, THERA 1 EACH TAB PO SCH (11:47)
[2018-06-27] MEDS: HYDROcodone/APAP 5-325MG 1 EACH TAB PO PRN (17:58)
--- NOTE | 2018-06-27 20:49 | PN ---
PROGRESS NOTE DATE OF SERVICE: 06/27/2018 This 68-year-old gentleman was admitted with dysphagia as well as impacted food bolus is being closely monitored at this time. The patient is still complaining of some mild difficulty while eating with feeling of stuck food in the lower part of the chest, the upper part of the esophagus. PHYSICAL EXAM: Alert and oriented x3. Pulse 87, blood pressure is 106/65, respirations 16, temperature 99.7, pulse ox 94% on room air. HEENT: Conjunctivae normal. Oral mucosa moist. Neck is no jugular venous distention. No carotid bruit. No lymph node enlargement. CARDIOVASCULAR: S1, S2. RESPIRATORY: Breath sounds diminished in the bases. No rhonchi, no crackles. ABDOMEN: Soft, nontender. NERVOUS SYSTEM: No focal deficits. LABS: WBC 3.8, hemoglobin 10.1. ASSESSMENT: 1. Dysphagia with impacted food bolus. 2. Leukopenia, anemia of undetermined etiology. 3. History of atrial fibrillation. 4. History of degenerative joint disease. 5. History of pulmonary embolus. 6. History of pancreatitis multiple times. 7. History of EtOH abuse. 8. Right renal carcinoma history. 9. History of pneumothorax, chest tube drainage. 10.History of bariatric surgery. 11.History of polyps. 12.History of cholecystectomy. 13.Hernia repair. 14.Colostomy reversal secondary to bowel perforation. 15.FULL CODE. RECOMMENDATIONS AND DISCUSSION: I recommend to continue current management and symptomatic treatment. Otherwise at this time I recommend continue to follow with Dr. Emanuel. Discussed with and will perform EGD tomorrow and continue to monitor. Once again, the prognosis guarded. Further recommendations to follow. MMODL / IJN: [id number] / MTDD
[2018-06-28] MEDS: HYDROcodone/APAP 5-325MG 1 EACH TAB PO PRN ×2 (00:02→06:14)
[2018-06-28] MEDS: TEMAZEPAM 15 MG CAP PO PRN (00:10)
[2018-06-28 07:58] VITALS: BP 130/75; RESP 18; TEMP 97.9
[2018-06-28] MEDS: PANTOPRAZOLE 40 MG/10 ML VIAL IVP SCH (09:26)
[2018-06-28 09:36] VITALS: PULSE 87
[2018-06-28 10:09] LABS: Anisocytosis Slight; Basophils % (A) 1 %; Eosinophils # (A) 0.1 k/uL (0-0.7); Eosinophils % (A) 4 %; HCT 30.5 % (39.0-53.0); HGB 9.6 gm/dL (13.0-17.5); Lymphocytes # (A) 0.9 k/uL (1.0-4.8); Lymphocytes % (A) 28 %; MCH 29.2 pg (25.0-35.0); MCHC 31.6 g/dL (31.0-37.0); MCV 92.5 fL (80.0-100.0); Mean Platelet Volume 8.4; Monocytes # (A) 0.3 k/uL (0-1.0); Monocytes % (A) 9 %; Neutrophils # (A) 1.7 k/uL (1.3-7.7); Neutrophils % (A) 57 %; Platelet Count 195 k/uL (150-450); RBC 3.29 m/uL (4.30-5.90); RDW 16.4 % (11.5-15.5)
[2018-06-28 10:36] LABS: Anion Gap 3 mmol/L; Blood Urea Nitrogen 12 mg/dL (9-20); Calcium 8.2 mg/dL (8.4-10.2); Carbon Dioxide 28 mmol/L (22-30); Chloride 107 mmol/L (98-107); Glucose 89 mg/dL (74-99); Potassium 3.3 mmol/L (3.5-5.1); Sodium 138 mmol/L (137-145)
[2018-06-28] MEDS ORDERED: POTASSIUM CHLORIDE ER 20 MEQ TAB.ER PO STA (11:19)
[2018-06-28] MEDS ORDERED: LIDOCAINE 1% INJ 10MG/ML (20 ML MDV) ONE (11:59)
[2018-06-28] MEDS ORDERED: PROPOFOL 10 MG/ML 20 ML VIAL IV ONE (11:59)
[2018-06-28] MEDS ORDERED: LACTATED RINGERS 1,000 ML IV ONE (12:01)
--- NOTE | 2018-06-28 12:20 | P.PCN ---
Date of Procedure: 06/28/18 Procedure(s) Performed: BRIEF HISTORY: Patient is a 68-year-old, pleasant, male, scheduled for an upper endoscopy as a part of variation of dysphagia to solids for the last 2 days' duration. 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 However yesterday his diet was advanced to a solid diet and started having severe epigastric discomfort and fullness and as if food was still stuck in the lower esophagus. He is hence scheduled for an upper endoscopy today.. PROCEDURE PERFORMED: Esophagogastroduodenoscopy with biopsy. PREOPERATIVE DIAGNOSIS: Dysphagia of 2 days duration. IV sedation per anesthesia. PROCEDURE: After informed consent was obtained, the patient was brought into the endoscopy unit. IV sedation was administered by Anesthesia under continuous monitoring. Initially the Olympus GIF-140 video endoscope was inserted into the mouth. Esophagus intubated without any difficulty. It was gradually advanced into the stomach with the gastric pouch was visualized and there was a Bibi-en- Y anastomosis noted. The scope was advanced into the afferent and efferent loops which appeared normal. The scope at this time was withdrawn to the gastric pouch and there was a 1 cm ulceration identified with no active bleeding. Biopsies were done from the ulcer. The scope was then withdrawn into the esophagus. The GE junction was located at 42 cm from the incisors. It was a distal esophageal I'll a patent Schatzki's ring identified. The esophagus appeared normal. There were no erosions or ulcerations seen, biopsies were done from the distal esophagus and the patient tolerated the procedure well. IMPRESSION: 1. 1 cm ulceration in the gastric pouch status post biopsy. 2. No evidence of food impaction. 3. Distal esophageal Schatzki's ring RECOMMENDATIONS: The findings of this examination were discussed with the patient. Diet will be advanced as tolerated. Continue with Protonix 40 mg daily. Follow-up in the office in 2 weeks..
[2018-06-28] MEDS: METOPROLOL TARTRATE 25 MG TAB PO SCH (13:02)
[2018-06-28] MEDS: ALLOPURINOL 300 MG TAB PO SCH (13:02)
[2018-06-28] MEDS: MULTIVITAMINS, THERA 1 EACH TAB PO SCH (13:02)
[2018-06-28] MEDS: FOLIC ACID 1 MG TAB PO SCH (13:02)
[2018-06-28] MEDS: CYANOCOBALAMIN 500 MCG TAB PO SCH (13:02)
[2018-06-28] MEDS: THIAMINE 100 MG TAB PO SCH (13:02)
[2018-06-28] MEDS: CHOLECALCIFEROL 1,000 UNIT TAB PO SCH (13:02)
[2018-06-28] MEDS: HEPARIN SODIUM,PORCINE 5,000 UNIT/ML 1 ML VIAL SQ SCH (13:03)
[2018-06-28] MEDS ORDERED: INFLUENZA VACCINE (6 MOS+) 60 MCG/0.5 ML SYRINGE IM ONE (14:29)
--- NOTE | 2018-06-28 17:20 | DS ---
DISCHARGE SUMMARY DATE OF SERVICE: 06/28/2018 FINAL DIAGNOSES: 1. History of dysphagia status post EGD showing Schatzki's ring. 2. 1 cm ulceration in the gastric pouch status post biopsy. 3. Leukopenia, anemia of undetermined etiology. 4. History of atrial fibrillation. 5. History of degenerative joint disease. 6. History of pulmonary embolism. 7. History of pancreatitis multiple times. 8. History EtOH abuse. 9. Right renal carcinoma history. 10.History of pneumothorax, chest tube drainage. 11.History of bariatric surgery. 12.History of polyps. 13.History of cholecystectomy. 14.History of hernia repair. 15.History of colostomy reversal secondary to bowel perforation. 16.FULL CODE. DISCHARGE DISPOSITION: The patient is being discharged in stable condition with guarded prognosis. HISTORY OF PRESENT ILLNESS: This 68-year-old gentleman with a past medical history of multiple medical problems was admitted dysphagia. The patient was treated symptomatically. EGD showed a Schatzki ring and gastric ulcer as mentioned earlier by Dr. Emanuel. The patient was treated symptomatically. Patient improved significantly as mentioned earlier. The patient also complaining of gastrointestinal bleed. Please note patient recently had EGD and colonoscopy. The hemoglobin is stable around 9.6 at this time. Close outpatient followup is suggested. On exam, vitals are stable. Cardiovascular S1, S2. Abdomen soft. Nervous system: No focal deficits. DISCHARGE ADVICE AND MEDICATIONS: 1. Diet is soft, bland. 2. Activity limited until follow up. 3. Follow up with Dr. Hood in 2-3 days. 4. Follow up with Dr. Nhan Emanuel as advised for biopsy report. MEDICATIONS ARE: 1. Zyloprim 300 mg daily. 2. Vitamin D3 5000 daily. 3. Vitamin B12 1000 mg. 4. Folic acid 1 mg daily. 5. Lopressor 25 mg b.i.d. 6. Vitamin B1 thiamine 100 mg. 7. Tylenol 650 q.6h p.r.n. 8. Eliquis 5 mg p.o. b.i.d., hold for 1 week and then restart. 9. Multivitamins 1 p.o. daily. 10.Protonix 40 mg p.o. b.i.d. CBC, BMP with Dr. Hood. Once again the patient is being discharged in stable with guarded prognosis. MMODL / IJN: [id number] /
== END 2018-06-28 17:34 | disposition home or self-care (01) ==
LOC: EC 02:32 → 4MS4W 04:14
PROVIDERS: ADMIT Hospitalist; ATTEND Hospitalist
DX: K22.2 Esophageal obstruction (principal); K25.4 Chronic or unspecified gastric ulcer with hemorrhage; D72.819 Decreased white blood cell count, unspecified; D64.9 Anemia, unspecified; I48.91 Unspecified atrial fibrillation; M19.90 Unspecified osteoarthritis, unspecified site; Z86.711 Personal history of pulmonary embolism; F10.10 Alcohol abuse, uncomplicated; N40.0 Benign prostatic hyperplasia without lower urinary tract symptoms; C64.1 Malignant neoplasm of right kidney, except renal pelvis; I10 Essential (primary) hypertension; Z98.84 Bariatric surgery status; Z90.49 Acquired absence of other specified parts of digestive tract; Z79.899 Other long term (current) drug therapy; Z79.01 Long term (current) use of anticoagulants; Z86.010 Personal history of colon polyps; Z87.891 Personal history of nicotine dependence; Z82.5 Family history of asthma and other chronic lower respiratory diseases; Z82.49 Family history of ischemic heart disease and other diseases of the circulatory system; Z80.41 Family history of malignant neoplasm of ovary; Z80.3 Family history of malignant neoplasm of breast; Z23 Encounter for immunization
CPT/HCPCS: 99285 ×2; 96376 ×3; 96372 ×2; 96374; 96375; 93005; 88305; 80048 ×3; 84550; 85025 ×3; 85610; 71046; 71250; 90686; 43239; G0378 ×3; G0008; J1644 ×2; J2001; J1170 ×2; J2704; C9113 ×3

== ENCOUNTER → 2018-08-23 | Outpatient (CLI) | payer MEDICARE, OTHER ==
--- NOTE | 2018-08-23 17:38 | ECHOF ---
Referral Reason:I48.2 Chronic atrial fibrillation / R60.0 Edema MEASUREMENTS -------- HEIGHT: 180.3 cm WEIGHT: 122.5 kg BP: RVIDd: 3.2 cm (< 3.3) IVSd: 1.3 cm (0.6 - 1.1) LVIDd: 4.6 cm (3.9 - 5.3) LVPWd: 1.3 cm (0.6 - 1.1) IVSs: 1.8 cm LVIDs: 3.1 cm LVPWs: 1.8 cm LAESV Index (A-L): 23.83 ml/m Ao Diam: 3.6 cm (2.0 - 3.7) AV Cusp: 1.8 cm (1.5 - 2.6) LA Diam: 4.2 cm (2.7 - 3.8) MV E Bucky: 0.52 m/s MV DecT: 419 ms MV A Bucky: 0.76 m/s MV E/A Ratio: 0.69 RAP: 5.00 mmHg RVSP: 13.57 mmHg FINDINGS -------- Sinus rhythm. This was a technically adequate study. The left ventricular size is normal. There is mild concentric left ventricular hypertrophy. Overa ll left ventricular systolic function is normal with, an EF between 55 - 60 %. The right ventricle is normal in size. Normal LA size by volume 22+/-6 ml/m2. The right atrium is normal in size. The aortic valve is trileaflet, and appears structurally normal. No aortic stenosis or regurgitation. The mitral valve is normal. Mild mitral regurgitation is present. Mild tricuspid regurgitation present. There is no evidence of pulmonary hypertension. The right v entricular systolic pressure, as measured by Doppler, is 13.57mmHg. The pulmonic valve was not well visualized. There is no pulmonic regurgitation present. The aortic root size is normal. IVC Not well visulized. There is no pericardial effusion. CONCLUSIONS -------- 1. Sinus rhythm. 2. This was a technically adequate study. 3. The left ventricular size is normal. 4. There is mild concentric left ventricular hypertrophy. 5. Overall left ventricular systolic function is normal with, an EF between 55 - 60 %. 6. Normal LA size by volume 22+/-6 ml/m2. 7. The aortic valve is trileaflet, and appears structurally normal. No aortic stenosis or regurgitati on. 8. Mild mitral regurgitation is present. 9. Mild tricuspid regurgitation present. 10. There is no evidence of pulmonary hypertension. 11. The pulmonic valve was not well visualized. 12. There is no pulmonic regurgitation present. 13. The aortic root size is normal. 14. IVC Not well visulized. 15. There is no pericardial effusion. SPRING TIER: Ramakrishna Miles RDCS
== END | disposition home or self-care (01) ==
LOC: RADECHMAIN 14:53
PROVIDERS: ATTEND Family Medicine
DX: I08.1 Rheumatic disorders of both mitral and tricuspid valves (principal); I48.2 Chronic atrial fibrillation
CPT/HCPCS: 93306

== ENCOUNTER → 2018-09-01 | Outpatient (CLI) | payer MEDICARE, OTHER ==
--- NOTE | 2018-09-01 14:51 | US ---
LOWER EXTREMITY VENOUS INSUFFICIENCY SIDE PERFORMED: Left 1) Color flow is present and patency is documented in the following vessels. No DVT or SVT is noted . EIV Common Femoral Vein Deep Femoral Vein Femoral Vein Popliteal Vein Proximal Calf Veins, not seen due to swelling and body habitus. Greater Saph Vein Upper Small Saph Vein 2) There is venous reflux noted at the following venous levels: Left CFV, GSV Large body habitus, technically difficult. IMPRESSION: 1. Venous reflux in the left common femoral vein and greater saphenous vein.
== END | disposition home or self-care (01) ==
LOC: RADUSWWP 12:56
PROVIDERS: ATTEND Family Medicine
DX: I87.8 Other specified disorders of veins (principal); I70.213 Atherosclerosis of native arteries of extremities with intermittent claudication, bilateral legs
CPT/HCPCS: 93923; 93970

== ENCOUNTER 2018-09-15 14:09 | Emergency (ER) | payer MEDICARE, OTHER ==
[2018-09-15 15:38] VITALS: RESP 18
[2018-09-15] MEDS ORDERED: MECLIZINE 12.5 MG TAB PO STA (17:05)
[2018-09-15] MEDS ORDERED: SODIUM CHLORIDE 0.9% 500 ML 500 ML IV STA (17:05)
--- NOTE | 2018-09-15 17:08 | ED ---
General Adult HPI - General Chief complaint: Dizziness Stated complaint: Dizzy, fall-rib injury Source: patient Mode of arrival: wheelchair Limitations: no limitations - History of Present Illness Initial comments: Dictation was produced using [employer] dictation software. please excuse any grammatical, word or spelling errors. Chief Complaint: 68-year-old male presents with dizziness 3 days. History of Present Illness: Patient is a 68-year-old male with past medical history of atrial fibrillation, blood disorder, cancer, pulmonary emboli presents with dizziness 34 days. Patient states that he stood up was walking around his kitchen when he stumbled causing him to contuse her right side of his chest. Patient states that the reason why he came today was conceived fell. Patient has multiple comorbidities. Chest pain is located to the right chest and radiates to the back. Patient denies any predilection for falling to one side versus the other. Denies any other symptoms at this time. The ROS documented in this emergency department record has been reviewed and confirmed by me. Those systems with pertinent positive or negative responses have been documented in the HPI. All other systems are other negative and/or noncontributory. - Related Data Home Medications Medication Instructions Recorded Confirmed Allopurinol [Zyloprim] 300 mg PO DAILY 02/22/14 09/15/18 Cholecalciferol [Vitamin D3] 5,000 unit PO DAILY 07/26/14 09/15/18 Metoprolol Tartrate [Lopressor] 25 mg PO BID 06/28/17 09/15/18 Cyanocobalamin [Vitamin B-12] 1,000 mcg PO DAILY 06/26/18 09/15/18 Folic Acid 1 mg PO DAILY 06/26/18 09/15/18 Furosemide [Lasix] 20 mg PO BID@0900,1300 09/15/18 09/15/18 Potassium Chloride [Klor-Con 10] 10 meq PO DAILY 09/15/18 09/15/18 Previous Rx's Medication Instructions Recorded Multivitamin [Men's Multi-Vitamin] 1 tab PO DAILY #30 07/01/17 Apixaban [Eliquis] 5 mg PO BID #0 06/28/18 Pantoprazole Sodium [Protonix] 40 mg PO BID #60 tablet.dr 06/28/18 Potassium Chloride [K-Tab ER] 20 meq PO BID 3 Days #8 tablet.er 09/15/18 Allergies Allergy/AdvReac Type Severity Reaction Status Date / Time No Known Allergies Allergy Verified 09/15/18 16:37 Review of Systems ROS Statement: Those systems with pertinent positive or pertinent negative responses have been documented in the HPI. ROS Other: All systems not noted in ROS Statement are negative. Past Medical History Past Medical History: Atrial Fibrillation, Blood Disorder, Cancer, Osteoarthritis (OA), Pulmonary Embolus (PE) Additional Past Medical History / Comment(s): Afib/RVR, pulmonary embolism L lung, pancreatitis multiple times, ETOH abuse, recent diagnosed with R renal carcinoma with sx, BPH, past R lung pneumo with chest tube, diverticulitis, benign colon polyps, arthritis multiple joints, abdominal hernias. History of Any Multi-Drug Resistant Organisms: None Reported Past Surgical History: Bariatric Surgery, Bowel Resection, Cholecystectomy, Hernia Repair, Joint Replacement Additional Past Surgical History / Comment(s): Recent (2017) r kidney lesion cryoablation at [facility], 2013 bowel resection d/t viscus perf with colostomy later reversed , gastric sleeve converted to darrell-en-Y 08/2014-post op wound infection, paraesphogeal hiat hernia repair, R inguinal and umbilical hernia repairs, colonoscopies, L total knee arthroplasty. Past Anesthesia/Blood Transfusion Reactions: No Reported Reaction Past Psychological History: No Psychological Hx Reported Smoking Status: Former smoker Past Alcohol Use History: Heavy Past Drug Use History: None Reported - Past Family History Father Family Medical History: COPD, Myocardial Infarction ([place]) Additional Family Medical History / Comment(s): Father from a [place] at the age of 69yrs. Mother Family Medical History: Cancer Additional Family Medical History / Comment(s): Mother from ovarian cancer at the age of 69yrs. Sister(s) Family Medical History: Cancer Additional Family Medical History / Comment(s): at age 74yrs. Had breast cancer and a defibrillator General Exam - General Exam Comments Initial Comments: PHYSICAL EXAM: General Impression: Alert and oriented x3, not in acute distress, tremulous to the upper extremities HEENT: Normocephalic atraumatic, extra-ocular movements intact, pupils equal and reactive to light bilaterally, mucous membranes moist. Cardiovascular: Heart regular rate and rhythm, S1&S2 audible, no murmurs, rubs or gallops Chest: Lungs clear to auscultation bilaterally, no rhonchi, no wheeze, no rales Abdomen: Bowel sounds present, abdomen soft, non-tender, non-distended, no organomegaly Musculoskeletal: Pulses present and equal in all extremities, no peripheral edema Motor: Power 5/5 bilaterally, no focal deficits noted Neurological: CN II-XII grossly intact, no focal motor or sensory deficits noted , no gait disturbance or balance disturbance, not ataxic Skin: Intact with no visualized rashes Psych: Normal affect and mood Limitations: no limitations Course Vital Signs 09/15/18 09/15/18 09/15/18 15:37 17:57 19:05 Temperature 98 F 98.8 F Pulse Rate 71 78 79 Respiratory 18 18 18 Rate Blood Pressure 107/61 123/75 103/73 O2 Sat by Pulse 98 96 99 Oximetry Medical Decision Making - Medical Decision Making ED course: 68-year-old presents with chief complaint dizziness. As upon arrival are within acceptable limits.EKG interpretation: Ventricular rate 77, sinus rhythm, NJ interval 166, care is 80, QTc 502. No NJ prolongation, no QTC prolongation, no ST or T-wave changes noted. EKG compared to 2017.Laboratory evaluation obtained. CBC grossly unremarkable. Coag panel unremarkable. Potassium is 3.0. Patient has mild non-gap acidosis. His rest of metabolic panel unremarkable. Cardiac enzymes negative. Urinalysis unremarkable. I believe patient's symptoms of dizziness are secondary to dehydration and hypokalemia. Patient given intravenous fluids and potassium. Patient denies any history of CHF. She does take Lasix 20 mg by mouth for lower extremity swelling. Discussed patient that he should hold his Lasix for 2 -3 days and patient will be given 2-3 days of potassium replacement. Patient told to maintain good hydration. Still to follow-up with his primary care doctor by Thursday. CT of the chest was obtained to rule out rib fractures. Patient has multiple rib fractures. Patient given a lidocaine patch. Patient understandable agreeable to plan. - Lab Data Result diagrams: 09/15/18 17:15 09/15/18 17:15 Lab Results 09/15/18 09/15/18 09/15/18 Range/Units 17:15 17:15 17:15 WBC 3.4 L (3.8-10.6) k/uL RBC 3.38 L (4.30-5.90) m/uL Hgb 10.2 L (13.0-17.5) gm/dL Hct 32.8 L (39.0-53.0) % MCV 97.1 (80.0-100.0) fL MCH 30.3 (25.0-35.0) pg MCHC 31.2 (31.0-37.0) g/dL RDW 16.8 H (11.5-15.5) % Plt Count 266 (150-450) k/uL Neutrophils % (Manual) 74 % Lymphocytes % (Manual) 13 % Monocytes % (Manual) 12 % Eosinophils % (Manual) 1 % Neutrophils # (Manual) 2.52 (1.3-7.7) k/uL Lymphocytes # (Manual) 0.44 L (1.0-4.8) k/uL Monocytes # (Manual) 0.41 (0-1.0) k/uL Eosinophils # (Manual) 0.03 (0-0.7) k/uL Nucleated RBCs 0 (0-0) /100 WBC Polychromasia Present Anisocytosis Slight Macrocytosis Slight Stomatocytes Present PT (9.0-12.0) sec INR (<1.2) Sodium 137 (137-145) mmol/L Potassium 3.0 L (3.5-5.1) mmol/L Chloride 98 (98-107) mmol/L Carbon Dioxide 31 H (22-30) mmol/L Anion Gap 8 mmol/L BUN 20 (9-20) mg/dL Creatinine 1.51 H (0.66-1.25) mg/dL Est GFR (CKD-EPI)AfAm 55 (>60 ml/min/1.73 sqM) Est GFR (CKD-EPI)NonAf 47 (>60 ml/min/1.73 sqM) Glucose 107 H (74-99) mg/dL Calcium 7.9 L (8.4-10.2) mg/dL Total Bilirubin 1.5 H (0.2-1.3) mg/dL AST 180 H (17-59) U/L ALT 88 H (21-72) U/L Alkaline Phosphatase 296 H (38-126) U/L Ammonia <9 (<30) umol/L Troponin I (0.000-0.034) ng/mL Total Protein 5.3 L (6.3-8.2) g/dL Albumin 2.3 L (3.5-5.0) g/dL Urine Color Urine Appearance (Clear) Urine pH (5.0-8.0) Ur Specific Julian (1.001-1.035) Urine Protein (Negative) Urine Glucose (UA) (Negative) Urine Ketones (Negative) Urine Blood (Negative) Urine Nitrite (Negative) Urine Bilirubin (Negative) Urine Urobilinogen (<2.0) mg/dL Ur Leukocyte Esterase (Negative) 09/15/18 09/15/18 09/15/18 Range/Units 17:15 17:15 18:08 WBC (3.8-10.6) k/uL RBC (4.30-5.90) m/uL Hgb (13.0-17.5) gm/dL Hct (39.0-53.0) % MCV (80.0-100.0) fL MCH (25.0-35.0) pg MCHC (31.0-37.0) g/dL RDW (11.5-15.5) % Plt Count (150-450) k/uL Neutrophils % (Manual) % Lymphocytes % (Manual) % Monocytes % (Manual) % Eosinophils % (Manual) % Neutrophils # (Manual) (1.3-7.7) k/uL Lymphocytes # (Manual) (1.0-4.8) k/uL Monocytes # (Manual) (0-1.0) k/uL Eosinophils # (Manual) (0-0.7) k/uL Nucleated RBCs (0-0) /100 WBC Polychromasia Anisocytosis Macrocytosis Stomatocytes PT 12.0 (9.0-12.0) sec INR 1.2 H (<1.2) Sodium (137-145) mmol/L Potassium (3.5-5.1) mmol/L Chloride (98-107) mmol/L Carbon Dioxide (22-30) mmol/L Anion Gap mmol/L BUN (9-20) mg/dL Creatinine (0.66-1.25) mg/dL Est GFR (CKD-EPI)AfAm (>60 ml/min/1.73 sqM) Est GFR (CKD-EPI)NonAf (>60 ml/min/1.73 sqM) Glucose (74-99) mg/dL Calcium (8.4-10.2) mg/dL Total Bilirubin (0.2-1.3) mg/dL AST (17-59) U/L ALT (21-72) U/L Alkaline Phosphatase (38-126) U/L Ammonia (<30) umol/L Troponin I <0.012 (0.000-0.034) ng/mL Total Protein (6.3-8.2) g/dL Albumin (3.5-5.0) g/dL Urine Color Yellow Urine Appearance Clear (Clear) Urine pH 5.0 (5.0-8.0) Ur Specific Julian 1.005 (1.001-1.035) Urine Protein Negative (Negative) Urine Glucose (UA) Negative (Negative) Urine Ketones Negative (Negative) Urine Blood Negative (Negative) Urine Nitrite Negative (Negative) Urine Bilirubin Negative (Negative) Urine Urobilinogen <2.0 (<2.0) mg/dL Ur Leukocyte Esterase Negative (Negative) Disposition Clinical Impression: Dizziness Disposition: HOME SELF-CARE Condition: Good Instructions: Dizziness (ED) Prescriptions: Potassium Chloride [K-Tab ER] 20 meq PO BID 3 Days #8 tablet.er Is patient prescribed a controlled substance at d/c from ED?: No Referrals: Rebekah Hood DO [Primary Care Provider] - 1-2 days Time of Disposition: 19:42
[2018-09-15 17:44] LABS: INR 1.2 (<1.2)
[2018-09-15 17:50] LABS: Albumin 2.3 g/dL (3.5-5.0); Calcium 7.9 mg/dL (8.4-10.2); Total Bilirubin 1.5 mg/dL (0.2-1.3); Total Protein 5.3 g/dL (6.3-8.2)
--- NOTE | 2018-09-15 17:53 | CT ---
EXAMINATION TYPE: CT chest wo con DATE OF EXAM: 09/15/2018 COMPARISON: 06/26/2018 HISTORY: Fall, bilateral posterior rib pain. CT DLP: 697.9 mGycm. Automated Exposure Control for Dose Reduction was Utilized. TECHNIQUE: CT scan of the thorax is performed without IV contrast. FINDINGS: There are multiple old posterior right healed rib fractures. There is chest wall deformity. There is patchy linear density in both lower lung valdez consistent with scarring and atelectasis. Heart size is normal. There are no hilar masses. There is no mediastinal adenopathy. Thoracic spine is intact. I see no compression fracture. There is no thoracic paraspinal mass. There is fatty infiltration of th e liver. There are old healed posterior-lateral left lower rib fractures. I see no definite acute fra cture. The shoulder joints are intact. Sternum appears intact. IMPRESSION: Multiple bilateral old rib fractures with some deformity on the right side. Pleural and p ulmonary scarring and atelectasis at the lung bases. Chest overall is not significantly different madyson n last exam. No acute fracture seen.
[2018-09-15 17:59] LABS: Anisocytosis Slight; HCT 32.8 % (39.0-53.0); HGB 10.2 gm/dL (13.0-17.5); MCH 30.3 pg (25.0-35.0); MCHC 31.2 g/dL (31.0-37.0); MCV 97.1 fL (80.0-100.0); Macrocytosis Slight; Mean Platelet Volume 7.3; Platelet Count 266 k/uL (150-450); RBC 3.38 m/uL (4.30-5.90); RDW 16.8 % (11.5-15.5); WBC 3.4 k/uL (3.8-10.6)
[2018-09-15 18:12] LABS: Eosinophils # (M) 0.03 k/uL (0-0.7); Lymphocytes # (M) 0.44 k/uL (1.0-4.8); Monocytes # (M) 0.41 k/uL (0-1.0); Neutrophils # (M) 2.52 k/uL (1.3-7.7); Neutrophils % (M) 74 %; Nucleated Red Blood Cells 0 /100 WBC (0-0); Polychromasia Present; Stomatocytes Present; Total Cells Counted 100
[2018-09-15 18:25] LABS: Appearance,Urine Clear (Clear); Bilirubin,Urine Negative (Negative); Blood,Urine Negative (Negative); Color,Urine Yellow; Glucose,Urine (UA) Negative (Negative); Ketones,Urine Negative (Negative); Leukocyte Esterase,Urine Negative (Negative); Nitrite,Urine Negative (Negative); Protein,Urine Negative (Negative); Specific Gravity,Urine 1.005 (1.001-1.035); Urobilinogen,Urine <2.0 mg/dL (<2.0)
[2018-09-15] MEDS ORDERED: POTASSIUM CHLORIDE ER 20 MEQ TAB.ER PO STA (19:24)
[2018-09-15] MEDS ORDERED: SODIUM CHLORIDE 0.9% 500 ML IV STA (19:31)
[2018-09-15 19:36] VITALS: TEMP 98.8
[2018-09-15] MEDS ORDERED: SODIUM CHLORIDE 0.9% 500 ML 500 ML IV ONE (19:49)
[2018-09-15] MEDS ORDERED: LIDOCAINE 5% PATCH TOPICAL STA (19:57)
[2018-09-15] MEDS ORDERED: HYDROcodone/APAP 5-325MG 1 EACH TAB PO STA (19:57)
[2018-09-15 21:44] VITALS: BP 95/68; PULSE 75
== END 2018-09-15 21:44 | disposition home or self-care (01) ==
LOC: EC 14:09
DX: R42 Dizziness and giddiness (principal); R07.9 Chest pain, unspecified; E86.0 Dehydration; E87.6 Hypokalemia; E87.2 Acidosis; M79.89 Other specified soft tissue disorders; I48.91 Unspecified atrial fibrillation; M19.90 Unspecified osteoarthritis, unspecified site; N40.0 Benign prostatic hyperplasia without lower urinary tract symptoms; Z87.81 Personal history of (healed) traumatic fracture; Z86.711 Personal history of pulmonary embolism; Z85.528 Personal history of other malignant neoplasm of kidney; Z87.891 Personal history of nicotine dependence; Z96.652 Presence of left artificial knee joint; Z79.899 Other long term (current) drug therapy
CPT/HCPCS: 36415; 71250; 80053; 81003; 82140; 84484; 85025; 85610; 93005; 96360; 96361; 99284

== ENCOUNTER 2018-11-20 12:56 | Inpatient (IN) | payer MEDICARE, OTHER ==
[2018-11-20] MEDS ORDERED: SODIUM CHLORIDE 0.9% 500 ML 500 ML IV STA (13:19)
--- NOTE | 2018-11-20 13:55 | ED ---
General Adult HPI - General Chief complaint: Dizziness Stated complaint: Dizzy, Blood in Stool Time Seen by Provider: 11/20/18 13:00 Source: patient, RN notes reviewed Mode of arrival: wheelchair Limitations: no limitations - History of Present Illness Initial comments: This is a 68-year-old male who presents emergency Department complaining of dizziness. Patient states it started yesterday about noon. Patient states symptoms are exacerbated by standing and relieved by sitting or lying down. Patient also has noted that he is having blood per rectum for last few weeks. Patient states he is on a blood thinner for atrial fibrillation. Patient denies any palpitations. Patient denies any shortness of breath or difficulty breathing. Patient states he has noticed some swelling in the bilateral arms. Patient denies any abdominal pain patient's nausea vomiting diarrhea. Patient denies any headache patient denies numbness weakness. Patient states sitting here currently has no symptoms. - Related Data Home Medications Medication Instructions Recorded Confirmed Allopurinol [Zyloprim] 300 mg PO DAILY 02/22/14 11/20/18 Cholecalciferol [Vitamin D3] 5,000 unit PO DAILY 07/26/14 11/20/18 Metoprolol Tartrate [Lopressor] 25 mg PO BID 06/28/17 11/20/18 Previous Rx's Medication Instructions Recorded Multivitamin [Men's Multi-Vitamin] 1 tab PO DAILY #30 07/01/17 Apixaban [Eliquis] 5 mg PO BID #0 06/28/18 Pantoprazole Sodium [Protonix] 40 mg PO BID #60 tablet. 06/28/18 Allergies Allergy/AdvReac Type Severity Reaction Status Date / Time No Known Allergies Allergy Verified 11/20/18 13:26 Review of Systems ROS Statement: Those systems with pertinent positive or pertinent negative responses have been documented in the HPI. ROS Other: All systems not noted in ROS Statement are negative. Past Medical History Past Medical History: Atrial Fibrillation, Blood Disorder, Cancer, Osteoarthritis (OA), Pulmonary Embolus (PE) Additional Past Medical History / Comment(s): Afib/RVR, pulmonary embolism L lung, pancreatitis multiple times, ETOH abuse, recent diagnosed with R renal carcinoma with sx, BPH, past R lung pneumo with chest tube, diverticulitis, benign colon polyps, arthritis multiple joints, abdominal hernias. History of Any Multi-Drug Resistant Organisms: None Reported Past Surgical History: Bariatric Surgery, Bowel Resection, Cholecystectomy, Hernia Repair, Joint Replacement Additional Past Surgical History / Comment(s): Recent (2017) r kidney lesion cryoablation at [facility], 2012 bowel resection d/t viscus perf with colostomy later reversed , gastric sleeve converted to darrell-en-Y 08/2014-post op wound infection, paraesphogeal hiat hernia repair, R inguinal and umbilical hernia repairs, colonoscopies, L total knee arthroplasty. Past Anesthesia/Blood Transfusion Reactions: No Reported Reaction Past Psychological History: No Psychological Hx Reported Smoking Status: Former smoker Past Alcohol Use History: Occasional Past Drug Use History: None Reported - Past Family History Father Family Medical History: COPD, Myocardial Infarction ([place]) Additional Family Medical History / Comment(s): Father from a [place] at the age of 69yrs. Mother Family Medical History: Cancer Additional Family Medical History / Comment(s): Mother from ovarian cancer at the age of 69yrs. Sister(s) Family Medical History: Cancer Additional Family Medical History / Comment(s): at age 74yrs. Had breast cancer and a defibrillator General Exam Limitations: no limitations Course Vital Signs 11/20/18 11/20/18 13:04 13:34 Temperature 97.9 F Pulse Rate 66 Pulse Rate [ 68 Sitting] Pulse Rate [ 82 Standing] Pulse Rate [ 64 Supine] Respiratory 18 Rate Blood Pressure 96/59 Blood Pressure 96/69 [Sitting] Blood Pressure 104/69 [Standing] Blood Pressure 105/68 [Supine] O2 Sat by Pulse 98 Oximetry Medical Decision Making - Medical Decision Making EKG shows normal sinus rhythm at 74 bpm [place] interval is 180 QRSs 80 QT interval is 504 QTC is 559. She is EKG shows no ST segment elevation or depression. Patient was given potassium chloride as well as K Dur. Patient's magnesium was also low so the patient received mag sulfate. Patient was also given calcium chloride. Patient's hemoglobin was mildly low at 9.6. I spoke with Dr. Sr he agreed to admit the patient admitted the patient I wrote admitting orders. - Lab Data Result diagrams: 11/20/18 13:50 11/20/18 13:50 Lab Results 11/20/18 11/20/18 11/20/18 Range/Units 13:50 13:50 13:50 WBC 2.9 L (3.8-10.6) k/uL RBC 3.03 L (4.30-5.90) m/uL Hgb 9.6 L (13.0-17.5) gm/dL Hct 29.7 L (39.0-53.0) % MCV 97.8 (80.0-100.0) fL MCH 31.5 (25.0-35.0) pg MCHC 32.2 (31.0-37.0) g/dL RDW 15.8 H (11.5-15.5) % Plt Count 223 (150-450) k/uL Neutrophils % 61 % Lymphocytes % 27 % Monocytes % 7 % Eosinophils % 1 % Basophils % 1 % Neutrophils # 1.8 (1.3-7.7) k/uL Lymphocytes # 0.8 L (1.0-4.8) k/uL Monocytes # 0.2 (0-1.0) k/uL Eosinophils # 0.0 (0-0.7) k/uL Basophils # 0.0 (0-0.2) k/uL Macrocytosis Slight PT 12.6 H (9.0-12.0) sec INR 1.2 H (<1.2) APTT 24.9 (22.0-30.0) sec Sodium 136 L (137-145) mmol/L Potassium 2.7 L* (3.5-5.1) mmol/L Chloride 96 L (98-107) mmol/L Carbon Dioxide 32 H (22-30) mmol/L Anion Gap 8 mmol/L BUN 15 (9-20) mg/dL Creatinine 1.50 H (0.66-1.25) mg/dL Est GFR (CKD-EPI)AfAm 55 (>60 ml/min/1.73 sqM) Est GFR (CKD-EPI)NonAf 48 (>60 ml/min/1.73 sqM) Glucose 92 (74-99) mg/dL Calcium 7.7 L (8.4-10.2) mg/dL Magnesium 1.4 L (1.6-2.3) mg/dL Total Bilirubin 1.8 H (0.2-1.3) mg/dL AST 67 H (17-59) U/L ALT 41 (21-72) U/L Alkaline Phosphatase 230 H (38-126) U/L Troponin I (0.000-0.034) ng/mL Total Protein 4.8 L (6.3-8.2) g/dL Albumin 2.0 L (3.5-5.0) g/dL Blood Type Blood Type Recheck Antibody Screen Spec Expiration Date 11/20/18 11/20/18 Range/Units 13:50 13:50 WBC (3.8-10.6) k/uL RBC (4.30-5.90) m/uL Hgb (13.0-17.5) gm/dL Hct (39.0-53.0) % MCV (80.0-100.0) fL MCH (25.0-35.0) pg MCHC (31.0-37.0) g/dL RDW (11.5-15.5) % Plt Count (150-450) k/uL Neutrophils % % Lymphocytes % % Monocytes % % Eosinophils % % Basophils % % Neutrophils # (1.3-7.7) k/uL Lymphocytes # (1.0-4.8) k/uL Monocytes # (0-1.0) k/uL Eosinophils # (0-0.7) k/uL Basophils # (0-0.2) k/uL Macrocytosis PT (9.0-12.0) sec INR (<1.2) APTT (22.0-30.0) sec Sodium (137-145) mmol/L Potassium (3.5-5.1) mmol/L Chloride (98-107) mmol/L Carbon Dioxide (22-30) mmol/L Anion Gap mmol/L BUN (9-20) mg/dL Creatinine (0.66-1.25) mg/dL Est GFR (CKD-EPI)AfAm (>60 ml/min/1.73 sqM) Est GFR (CKD-EPI)NonAf (>60 ml/min/1.73 sqM) Glucose (74-99) mg/dL Calcium (8.4-10.2) mg/dL Magnesium (1.6-2.3) mg/dL Total Bilirubin (0.2-1.3) mg/dL AST (17-59) U/L ALT (21-72) U/L Alkaline Phosphatase (38-126) U/L Troponin I <0.012 (0.000-0.034) ng/mL Total Protein (6.3-8.2) g/dL Albumin (3.5-5.0) g/dL Blood Type B Positive Blood Type Recheck No Antibody Screen NEGATIVE Spec Expiration Date 11/23/2018 - 235 Critical Care Time Critical Care Time: Yes Total Critical Care Time: 35 Disposition Clinical Impression: Hypokalemia, Hypocalcemia, Hypomagnesemia, Lightheaded, GI bleed Disposition: ADMITTED IP TO THIS HOSP Referrals: Rebekah Hood DO [Primary Care Provider] - 1-2 days Time of Disposition: 15:20
[2018-11-20 14:07] LABS: Basophils % (A) 1 %; Eosinophils % (A) 1 %; HCT 29.7 % (39.0-53.0); HGB 9.6 gm/dL (13.0-17.5); Lymphocytes # (A) 0.8 k/uL (1.0-4.8); Lymphocytes % (A) 27 %; MCH 31.5 pg (25.0-35.0); MCHC 32.2 g/dL (31.0-37.0); MCV 97.8 fL (80.0-100.0); Macrocytosis Slight; Mean Platelet Volume 8.2; Monocytes # (A) 0.2 k/uL (0-1.0); Monocytes % (A) 7 %; Neutrophils # (A) 1.8 k/uL (1.3-7.7); Neutrophils % (A) 61 %; Platelet Count 223 k/uL (150-450); RBC 3.03 m/uL (4.30-5.90); RDW 15.8 % (11.5-15.5); WBC 2.9 k/uL (3.8-10.6)
[2018-11-20 14:16] LABS: Calcium 7.7 mg/dL (8.4-10.2); INR 1.2 (<1.2); Magnesium 1.4 mg/dL (1.6-2.3); Partial Thromboplastin Time 24.9 sec (22.0-30.0); Prothrombin Time 12.6 sec (9.0-12.0); Total Bilirubin 1.8 mg/dL (0.2-1.3); Total Protein 4.8 g/dL (6.3-8.2)
[2018-11-20 14:23] LABS: Potassium 2.7 mmol/L (3.5-5.1)
[2018-11-20] MEDS ORDERED: POTASSIUM CHLORIDE ER 20 MEQ TAB.ER PO STA (14:28)
[2018-11-20] MEDS ORDERED: POTASSIUM CHLORIDE 20 MEQ in WATER FOR INJECTION 1 100ML.BAG IVPB STA (14:28)
[2018-11-20] MEDS ORDERED: MAGNESIUM SULFATE-D5W PMX 1 GM in DEXTROSE/WATER 1 100ML.BAG IVPB ONE (14:28)
[2018-11-20] MEDS ORDERED: CALCIUM CHLORIDE 100 MG/ML 10 ML SYRINGE IVP STA (14:29)
[2018-11-20] MEDS ORDERED: SODIUM CHLORIDE 0.9% 1,000 ML IV ONE (15:21)
[2018-11-20] MEDS ORDERED: Potassium Replacement Protocol 1 EACH MISC MISCELLANE PRN (15:23)
[2018-11-20] MEDS ORDERED: HYDROmorphone 0.5 MG/0.5 ML SYRINGE IVP PRN (17:58)
[2018-11-20] MEDS: PANTOPRAZOLE 40 MG TABLET PO SCH (18:58)
[2018-11-20] MEDS: METOPROLOL TARTRATE 25 MG TAB PO SCH (19:49)
[2018-11-20] MEDS: POTASSIUM CHLORIDE ER 20 MEQ TAB.ER PO SCH ×2 (22:05→23:09)
[2018-11-21] MEDS ORDERED: SODIUM CHLORIDE 0.9% 1,000 ML IV ONE ×2 (00:01→10:57)
[2018-11-21] MEDS ORDERED: Magnesium Replacement Protocol 1 EACH MISC MISCELLANE PRN (01:33)
[2018-11-21] MEDS: MAGNESIUM SULFATE-D5W PMX 1 GM in DEXTROSE/WATER 1 100ML.BAG IVPB SCH ×2 (01:54→02:57)
[2018-11-21] MEDS ORDERED: POTASSIUM CHLORIDE 20 MEQ in WATER FOR INJECTION 1 100ML.BAG IVPB STA (02:05)
[2018-11-21] MEDS: HYDROcodone/APAP 5-325MG 1 EACH TAB PO PRN ×2 (03:07→23:38)
[2018-11-21] MEDS: POTASSIUM CHLORIDE ER 20 MEQ TAB.ER PO SCH ×3 (04:18→06:21)
[2018-11-21] MEDS: PANTOPRAZOLE 40 MG TABLET PO SCH ×3 (06:21→23:33)
[2018-11-21 07:48] LABS: Calcium 7.6 mg/dL (8.4-10.2); Potassium 3.4 mmol/L (3.5-5.1)
[2018-11-21 07:49] LABS: Anisocytosis Slight; Basophils % (A) 1 %; Eosinophils # (A) 0.1 k/uL (0-0.7); Eosinophils % (A) 3 %; HCT 26.3 % (39.0-53.0); HGB 8.3 gm/dL (13.0-17.5); Hypochromasia Slight; Lymphocytes # (A) 1.1 k/uL (1.0-4.8); Lymphocytes % (A) 38 %; MCHC 31.6 g/dL (31.0-37.0); MCV 101.1 fL (80.0-100.0); Macrocytosis Slight; Monocytes # (A) 0.2 k/uL (0-1.0); Monocytes % (A) 8 %; Neutrophils # (A) 1.4 k/uL (1.3-7.7); Neutrophils % (A) 47 %; Platelet Count 189 k/uL (150-450); RDW 16.3 % (11.5-15.5); WBC 2.9 k/uL (3.8-10.6)
[2018-11-21] MEDS: POTASSIUM CHLORIDE 10 MEQ in WATER FOR INJECTION 1 100ML.BAG IVPB SCH ×4 (08:51→13:51)
[2018-11-21] MEDS: METOPROLOL TARTRATE 25 MG TAB PO SCH ×2 (09:33→19:51)
--- NOTE | 2018-11-21 11:16 | P.HPIM ---
History of Present Illness H&P Date: 11/21/18 Chief Complaint: Dizziness, GI bleed This very pleasant 68-year-old gentleman past medical history significant for A. madison on Eliquis, comes in with above-mentioned complaint. Patient says that he was here a few months ago with the same complaints of GI bleed. At that time he had a scope done and he had 2 polyps removed. He also had hemorrhoids at the time according to the patient. He said that he was okay after that and since the past 2 weeks she's been having intermittent blood in the stools. Yesterday he felt very lightheaded and dizzy when he got up to walk he also started having chest pressure at the. He does came into the ER for further evaluation and management. Patient otherwise does not complain of any shortness of breath or cough, no abdominal pain, no nausea and vomiting, no diarrhea constipation, no tingling numbness of any extremities, no itch no rash. ER course-patient's vitals initially were stable but on the floor his blood pressure dropped down to 80 systolic. Blood work was done which showed WAC 2.9 hemoglobin 9.6 platelets 223 sodium 136 potassium 2.7 BUN 15 creatinine 1.50 alk phos 230 AST 67 ALT 41 magnesium 1.4. Patient was given IV fluids as, GI and cardiology was consulted and the patient was admitted to the hospitalist service for further evaluation and management Review of Systems All systems: negative Past Medical History Past Medical History: Atrial Fibrillation, Blood Disorder, Cancer, Osteoarthritis (OA), Pulmonary Embolus (PE) Additional Past Medical History / Comment(s): Afib/RVR, pulmonary embolism L lung, pancreatitis multiple times, ETOH abuse, recent diagnosed with R renal carcinoma with sx, BPH, past R lung pneumo with chest tube, diverticulitis, benign colon polyps, arthritis multiple joints, abdominal hernias. Dizziness fall and right rib fractures 09/15/19 History of Any Multi-Drug Resistant Organisms: None Reported Past Surgical History: Bariatric Surgery, Bowel Resection, Cholecystectomy, Hernia Repair, Joint Replacement Additional Past Surgical History / Comment(s): Recent (2017) r kidney lesion cryoablation at [facility], 2013 bowel resection d/t viscus perf with colostomy later reversed , gastric sleeve converted to darrell-en-Y 08/2014-post op wound infection, paraesphogeal hiat hernia repair, R inguinal and umbilical hernia repairs, colonoscopies, L total knee arthroplasty. Past Anesthesia/Blood Transfusion Reactions: No Reported Reaction Smoking Status: Former smoker - Past Family History Father Family Medical History: COPD, Myocardial Infarction ([place]) Additional Family Medical History / Comment(s): Father from a [place] at the age of 69yrs. Mother Family Medical History: Cancer Additional Family Medical History / Comment(s): Mother from ovarian cancer at the age of 69yrs. Sister(s) Family Medical History: Cancer Additional Family Medical History / Comment(s): at age 74yrs. Had breast cancer and a defibrillator Medications and Allergies Home Medications Medication Instructions Recorded Confirmed Type Allopurinol [Zyloprim] 300 mg PO DAILY 02/22/14 11/20/18 History Cholecalciferol [Vitamin D3] 5,000 unit PO DAILY 07/26/14 11/20/18 History Metoprolol Tartrate [Lopressor] 25 mg PO BID 06/28/17 11/20/18 History Multivitamin [Men's Multi-Vitamin] 1 tab PO DAILY #30 07/01/17 11/20/18 Rx Apixaban [Eliquis] 5 mg PO BID #0 06/28/18 11/20/18 Rx Pantoprazole Sodium [Protonix] 40 mg PO BID #60 tablet. 06/28/18 11/20/18 Rx Allergies Allergy/AdvReac Type Severity Reaction Status Date / Time No Known Allergies Allergy Verified 11/20/18 13:26 Physical Exam Vitals: Vital Signs Temp Pulse Pulse Pulse Pulse Resp BP 11/21/18 09:41 67 66 11/21/18 08:00 16 11/21/18 07:53 97.7 F 57 L 16 11/21/18 03:40 97.7 F 63 18 11/21/18 00:32 11/20/18 23:36 67 18 11/20/18 20:00 97.5 F L 60 18 11/20/18 19:30 72 85 63 11/20/18 16:48 97.8 F 60 20 11/20/18 16:00 16 116/77 11/20/18 15:30 18 115/70 11/20/18 14:00 69 13 100/62 11/20/18 13:34 68 82 64 11/20/18 13:30 68 20 104/69 11/20/18 13:16 20 11/20/18 13:04 97.9 F 66 18 96/59 BP BP BP Pulse Ox 11/21/18 09:41 85/50 81/49 11/21/18 08:00 11/21/18 07:53 87/51 96 11/21/18 03:40 101/57 92 L 11/21/18 00:32 95/50 11/20/18 23:36 83/57 94 L 11/20/18 20:00 104/59 92 L 11/20/18 19:30 114/68 105/57 112/60 11/20/18 16:48 100/58 97 11/20/18 16:00 98 11/20/18 15:30 92 L 11/20/18 14:00 98 11/20/18 13:34 96/69 104/69 105/68 11/20/18 13:30 98 11/20/18 13:16 98 11/20/18 13:04 98 Intake and Output 11/20/18 11/21/18 11/21/18 22:59 06:59 14:59 Intake Total 200 100 Output Total 600 300 200 Balance -400 -300 -100 Intake: IV 200 100 Magnesium Sulfate-D5w Pmx 100 1 gm In Dextrose/Water 1 100ml.bag @ 100 mls/hr IVPB ONCE ONE Rx#: [id number] Potassium Chloride 10 meq 100 In Water For Injection 1 100ml.bag @ 100 mls/hr IVPB Q1HR JESSY Rx#: [id number] Potassium Chloride 20 meq 100 In Water For Injection 1 100ml.bag @ 50 mls/hr IVPB ONCE STA Rx#: [id number] Output: Urine 600 300 200 Other: Voiding Method Urinal Urinal Urinal Weight 120 kg On exam, alert and oriented x3. HEENT: Conjunctivae normal. eyes normal. NECK: No JVD. No thyroid enlargement. No LNs CARDIOVASCULAR: S1-S2 positive RESPIRATION: Breath sounds diminished in the bases. No rhonchi or crackles. No bronchial breathing. ABDOMEN: Soft, nontender . No guarding. no masses palpable. No ascites, No hepatosplenomegaly.Bowel sounds heard. LEGS: No edema. no swelling NERVOUS SYSTEM: Cranial N 2-12 grossly normal. Moves all 4 limbs. No focal deficits. No sensory deficit. No signs of cerebellar dysfucntion. Skin: no ulcer no rash Joints: No active swelling. No inflammation. Lymphatic system. No LN neck axilla or groin. Results CBC & Chem 7: 11/21/18 06:45 11/21/18 06:45 Labs: Abnormal Lab Results - Last 24 Hours (Table) 11/20/18 11/20/18 11/20/18 Range/Units 13:50 13:50 13:50 WBC 2.9 L (3.8-10.6) k/uL RBC 3.03 L (4.30-5.90) m/uL Hgb 9.6 L (13.0-17.5) gm/dL Hct 29.7 L (39.0-53.0) % MCV (80.0-100.0) fL RDW 15.8 H (11.5-15.5) % Lymphocytes # 0.8 L (1.0-4.8) k/uL PT 12.6 H (9.0-12.0) sec INR 1.2 H (<1.2) Sodium 136 L (137-145) mmol/L Potassium 2.7 L* (3.5-5.1) mmol/L Chloride 96 L (98-107) mmol/L Carbon Dioxide 32 H (22-30) mmol/L Creatinine 1.50 H (0.66-1.25) mg/dL Calcium 7.7 L (8.4-10.2) mg/dL Magnesium 1.4 L (1.6-2.3) mg/dL Total Bilirubin 1.8 H (0.2-1.3) mg/dL AST 67 H (17-59) U/L Alkaline Phosphatase 230 H (38-126) U/L Total Protein 4.8 L (6.3-8.2) g/dL Albumin 2.0 L (3.5-5.0) g/dL 11/20/18 11/20/18 11/21/18 Range/Units 20:04 23:50 06:45 WBC (3.8-10.6) k/uL RBC (4.30-5.90) m/uL Hgb (13.0-17.5) gm/dL Hct (39.0-53.0) % MCV (80.0-100.0) fL RDW (11.5-15.5) % Lymphocytes # (1.0-4.8) k/uL PT (9.0-12.0) sec INR (<1.2) Sodium (137-145) mmol/L Potassium 3.0 L 2.7 L* 3.4 L (3.5-5.1) mmol/L Chloride (98-107) mmol/L Carbon Dioxide (22-30) mmol/L Creatinine 1.35 H (0.66-1.25) mg/dL Calcium 7.6 L (8.4-10.2) mg/dL Magnesium (1.6-2.3) mg/dL Total Bilirubin (0.2-1.3) mg/dL AST (17-59) U/L Alkaline Phosphatase (38-126) U/L Total Protein (6.3-8.2) g/dL Albumin (3.5-5.0) g/dL 11/21/18 Range/Units 06:45 WBC 2.9 L (3.8-10.6) k/uL RBC 2.60 L (4.30-5.90) m/uL Hgb 8.3 L (13.0-17.5) gm/dL Hct 26.3 L (39.0-53.0) % MCV 101.1 H (80.0-100.0) fL RDW 16.3 H (11.5-15.5) % Lymphocytes # (1.0-4.8) k/uL PT (9.0-12.0) sec INR (<1.2) Sodium (137-145) mmol/L Potassium (3.5-5.1) mmol/L Chloride (98-107) mmol/L Carbon Dioxide (22-30) mmol/L Creatinine (0.66-1.25) mg/dL Calcium (8.4-10.2) mg/dL Magnesium (1.6-2.3) mg/dL Total Bilirubin (0.2-1.3) mg/dL AST (17-59) U/L Alkaline Phosphatase (38-126) U/L Total Protein (6.3-8.2) g/dL Albumin (3.5-5.0) g/dL Thrombosis Risk Factor Assmnt - Choose All That Apply Each Factor Represents 1 point: Medical pt on bed rest, Obesity (BMI >25), Swollen legs (current) Other Risk Factors: Yes Each Risk Factor Represents 2 Points: Age 61-74 years Thrombosis Risk Factor Assessment Total Risk Factor Score: 5 Thrombosis Risk Factor Assessment Level: High Risk Assessment and Plan Assessment: - GI bleed - AKASH - Hypotension probably because of GI bleed - History of A. fib on eliquis -History of bariatric surgery - History of DJD Plan - We will admit the patient to [facility] with telemetry - His hemoglobin this morning is 8.3. His blood pressures also in the lower side and his creatinine is up. We'll give 1 L bolus of IV fluids. I already discussed the case with ICU attending in case need ICU transfer because of his low blood pressure - We'll also get a computed tomography scan abdomen without contrast - Also discussed with GI - We'll hold off on blood pressure medications for now - Hold off on Eliquis - GI prophylaxis with Protonix twice a day - We'll order for lab work in the morning - Expected length of stay more than 2 midnights - Patient is full code Time with Patient: Greater than 30
[2018-11-21 11:52] LABS: Anisocytosis Slight; HCT 27.9 % (39.0-53.0); HGB 8.9 gm/dL (13.0-17.5); Hypochromasia Slight; MCH 32.4 pg (25.0-35.0); MCHC 31.9 g/dL (31.0-37.0); MCV 101.4 fL (80.0-100.0); Macrocytosis Slight; Mean Platelet Volume 7.6; Platelet Count 202 k/uL (150-450); RBC 2.75 m/uL (4.30-5.90); RDW 16.3 % (11.5-15.5); WBC 2.6 k/uL (3.8-10.6)
--- NOTE | 2018-11-21 12:06 | CT ---
EXAMINATION TYPE: CT abdomen pelvis wo con DATE OF EXAM: 11/21/2018 COMPARISON: 07/10/2018 and 02/16/2017 HISTORY: 68-year-old male GI bleed CT DLP: 1394.4 mGycm. Automated exposure control for dose reduction was used. TECHNIQUE: Contiguous axial scanning of the abdomen and pelvis without IV contrast. Coronal and sagit earnest reconstructions performed. FINDINGS: Diffuse anasarca type changes. Heart borderline enlarged without pericardial effusion. New small right and trace left pleural effusions. Prominent adjacent opacities. Old right-sided rib f racture deformities with some underlying pleural-parenchymal scarring at the posterior right base. Postsurgical changes of Bibi-en-Y gastric bypass. The proximal jejunum just after the gastrojejunosto my is involved in a small Malin hernia along the epigastric region, reference axial image 16. This was present previously as well. Periumbilical hernia appears to have increased in size now measuring 11.4 cm wide within the abdomina l wall defect measuring 4.6 cm wide. A couple nonobstructed small bowel loops and mesenteric fat are involved in the hernia. Bilateral flank edema and extensive stranding throughout the intra-abdominal fat compatible with anas arca type changes. Liver shows diminished attenuation compatible with fatty infiltration. Gallbladder surgically absent. 1.4 cm nodularity right adrenal gland is indeterminate but statistically represents a benign adrenal adenoma. Left adrenal gland, spleen, and atrophic pancreas show no gross anomaly. Exophytic lesion stable from the lower pole right kidney measures 1.9 cm compatible with a cyst. Edison tional 1.3 cm cortical cyst lateral left kidney is stable as well as a 1.6 cm parapelvic cyst. There is an 8 mm nonobstructive left renal calculus. Note dilated small bowel, free fluid, or free air. This seems to be extensive proliferation of the right greater than left retroperitoneal fat displacin g the cecum and terminal ileum anteriorly and superiorly. All of the bowel loops are displaced and bu nched up anteriorly. Finding appears similar to the 2017 study. Sigmoid diverticulosis without convincing inflammatory wall thickening. Bladder partially distended. Multiple pelvic phleboliths. Prostate gland measures 5.0 cm wide. Presac ral edema. No pelvic lymphadenopathy seen. Bones: Mild to moderate degenerative changes of the hips and multilevel degenerative changes througho ut the lumbar spine. IMPRESSION: 1. New diffuse anasarca-type change with small right and trace left pleural effusions. Correlate for fluid overload state. 2. Increased dependent opacities in the bilateral lung bases probably represent atelectasis rather t dacosta infiltrate. Clinically correlate. 3. Sigmoid diverticulosis. No convincing evidence for acute diverticulitis. 4. Bibi-en-Y gastric bypass. There is redemonstrated small Malin hernia along the epigastrium invo lving proximal jejunum just after the gastrojejunostomy. 5. Enlarging umbilical hernia containing a couple nonobstructed small bowel loops now measuring 11.4 cm wide. 6. Note marked proliferation of the retroperitoneal fat especially around the kidneys causing anteri or displacement and bunching up of the bowel loops. This appearance is relatively similar to 2017. 7. Hepatic steatosis. 8 mm nonobstructive left renal calculus. Prostatomegaly (5.0 cm wide).
[2018-11-21] MEDS: ALLOPURINOL 300 MG TAB PO SCH (12:38)
[2018-11-21] MEDS: MULTIVITAMINS, THERA 1 EACH TAB PO SCH (12:38)
--- NOTE | 2018-11-21 13:12 | P.CRDCN ---
History of Present Illness History of present illness: This is a pleasant 68-year-old male past medical history significant for atrial fibrillation, pulmonary embolism, right renal carcinoma status post right kidney cryoablation, chronic alcohol abuse and former nicotine dependence. He follows in the office with Dr. Mcadams. We have been asked to see him in consultation secondary to GI bleeding on long-term anticoagulation. He states for the previous few days he has noted significant dizziness and lightheaded with any sort of exertion or position changes. He denies room spinning but says he just feels extremely lightheaded. he also has felt a vague tight sensation around his entire torso, not exacerbated by exertion or movement of his upper body. He denies symptoms of shortness of breath, palpitations, nausea, vomiting or diaphoresis. He states when he sitting down and not moving he is asymptomatic. He has noticed his stools have been dark over the previous weeks. He has had this in the past and undergone a scope last year and was told that he had hemorrhoids. Laboratory data reviewed, hemoglobin on admission 9.6 repeat this morning 8.3 and subsequently thereafter 8.9. Platelets 202, sodium 137, potassium on admission 2. 7 repeat this morning 3.4, creatinine 1.35, magnesnesium on admission 1. 4 repeat this morning 2.0, total bilirubin 1.8, alkaline phosphate 230, cardiac enzymes negative 1. EKG obtained on admission reveals atrial fibrillation heart rate 74. CT abdomen pelvis reveals anasarca type change with a small right and left pleural effusions, increased dependent obesities bilateral lung bases, sigmoid diverticulosis with no acute diverticulitis, Bibi-en-Y gastric bypass noted with a small hernia along the epigastrium involving the proximal jejunum, enlarging umbilical hernia containing a couple nonobstructed small bowel loops, market proliferation of the retroperitoneal fat around the kidneys causing anterior displacement and bunching up of the bowel loops, hepatic steatosis and an 8 mm nonobstructive left renal calculus noted. Most Recent echocardiogram obtained August 2018 reveals preserved left ventricular systolic function with ejection fraction 55-60%, mild MR and mild TR noted. At the time of my exam: CONSTITUTIONAL: Denies fever. Denies chills. EYES: Denies blurred vision. Denies vision changes. Denies eye pain. EARS, NOSE, MOUTH & THROAT: Denies headache. Denies sore throat. Denies ear pain. CARDIOVASCULAR: Denies chest pain. Denies shortness of breath. Denies orthopnea. Denies PND. Denies palpitations. RESPIRATORY: Denies cough. GASTROINTESTINAL: Denies abdominal pain. Denies diarrhea. Denies constipation. Denies nausea. Denies vomiting. MUSCULOSKELETAL: Denies myalgias. INTEGUMENTARY: Denies pruitis. Denies rash. NEUROLOGIC: Denies numbness. Denies tingling. Complains of weakness and dizziness with exertion. PSYCHIATRIC: Denies anxiety. Denies depression. ENDOCRINE: Denies fatigue. Denies weight change. Denies polydipsia. Denies polyurina. GENITOURINARY: Denies burning, hematuria or urgency with micturation. HEMATOLOGIC: Denies history of anemia. Denies bleeding. Blood pressure 94/54 heart rate 65 afebrile maintaining oxygen saturation on room air. GENERAL: This is a 68-year-old male in no apparent distress at the time of my examination. Flat affect. Obese. HEENT: Head is atraumatic, normocephalic. Pupils are equal, round. Sclerae anicteric. Conjunctivae are clear. Mucous membranes of the mouth are moist. Neck is supple. There is no jugular venous distention. No carotid bruit is heard. LUNGS: Clear to auscultation no wheezes, rales or rhonchi. No chest wall tenderness is noted on palpation or with deep breathing. Diminished bilaterally. HEART: Irregular rate and rhythm without murmurs, rubs or gallops. S1 and S2 heard. ABDOMEN: Soft, nontender. Bowel sounds are heard. No organomegaly noted. EXTREMITIES: No evidence of peripheral edema and no calf tenderness noted. VASCULAR: Radial and dorsalis pedis pulses palpated, no evidence of clubbing. NEUROLOGIC: Patient is awake, alert and oriented x3. ASSESSMENT Chest pain, atypical for angina. Acute GI bleeding, eliquis held Hypotension Hypokalemia Hypomagnesemia Paroxysmal atrial fibrillation on prison anti-coagulation, held since admission Chronic alcohol abuse PLAN Continue to hold eliquis until he is seen and evaluated by GI service. Obtain second troponin to rule out an acute coronary event. Continue to replace electrolytes per protocol. Check NT-proBNP. Continue lopressor as previously ordered for rate control. Further recommendations to follow based on clinical course. Thank you kindly for this consultation. Nurse Practitioner note has been reviewed, I agree with a documented findings and plan of care. Patient was seen and examined. Past Medical History Past Medical History: Atrial Fibrillation, Blood Disorder, Cancer, Osteoarthritis (OA), Pulmonary Embolus (PE) Additional Past Medical History / Comment(s): Afib/RVR, pulmonary embolism L lung, pancreatitis multiple times, ETOH abuse, recent diagnosed with R renal carcinoma with sx, BPH, past R lung pneumo with chest tube, diverticulitis, benign colon polyps, arthritis multiple joints, abdominal hernias. Dizziness fall and right rib fractures 09/15/19 History of Any Multi-Drug Resistant Organisms: None Reported Past Surgical History: Bariatric Surgery, Bowel Resection, Cholecystectomy, Hernia Repair, Joint Replacement Additional Past Surgical History / Comment(s): Recent (2017) r kidney lesion cryoablation at [facility], 2012 bowel resection d/t viscus perf with colostomy later reversed , gastric sleeve converted to bibi-en-Y 08/2014-post op wound infection, paraesphogeal hiat hernia repair, R inguinal and umbilical hernia repairs, colonoscopies, L total knee arthroplasty. Past Anesthesia/Blood Transfusion Reactions: No Reported Reaction Smoking Status: Former smoker - Past Family History Father Family Medical History: COPD, Myocardial Infarction ([place]) Additional Family Medical History / Comment(s): Father from a [place] at the age of 69yrs. Mother Family Medical History: Cancer Additional Family Medical History / Comment(s): Mother from ovarian cancer at the age of 69yrs. Sister(s) Family Medical History: Cancer Additional Family Medical History / Comment(s): at age 74yrs. Had breast cancer and a defibrillator Medications and Allergies Home Medications Medication Instructions Recorded Confirmed Type Allopurinol [Zyloprim] 300 mg PO DAILY 02/22/14 11/20/18 History Cholecalciferol [Vitamin D3] 5,000 unit PO DAILY 07/26/14 11/20/18 History Metoprolol Tartrate [Lopressor] 25 mg PO BID 06/28/17 11/20/18 History Multivitamin [Men's Multi-Vitamin] 1 tab PO DAILY #30 07/01/17 11/20/18 Rx Apixaban [Eliquis] 5 mg PO BID #0 06/28/18 11/20/18 Rx Pantoprazole Sodium [Protonix] 40 mg PO BID #60 tablet. 06/28/18 11/20/18 Rx Allergies Allergy/AdvReac Type Severity Reaction Status Date / Time No Known Allergies Allergy Verified 11/20/18 13:26 Physical Exam Vitals: Vital Signs Temp Pulse Pulse Pulse Pulse Resp BP 11/21/18 07:53 97.7 F 57 L 16 11/21/18 03:40 97.7 F 63 18 11/21/18 00:32 11/20/18 23:36 67 18 11/20/18 20:00 97.5 F L 60 18 11/20/18 19:30 72 85 63 11/20/18 16:48 97.8 F 60 20 11/20/18 16:00 16 116/77 11/20/18 15:30 18 115/70 11/20/18 14:00 69 13 100/62 11/20/18 13:34 68 82 64 11/20/18 13:30 68 20 104/69 11/20/18 13:16 20 11/20/18 13:04 97.9 F 66 18 96/59 BP BP BP Pulse Ox 11/21/18 07:53 87/51 96 11/21/18 03:40 101/57 92 L 11/21/18 00:32 95/50 11/20/18 23:36 83/57 94 L 11/20/18 20:00 104/59 92 L 11/20/18 19:30 114/68 105/57 112/60 11/20/18 16:48 100/58 97 11/20/18 16:00 98 11/20/18 15:30 92 L 11/20/18 14:00 98 11/20/18 13:34 96/69 104/69 105/68 11/20/18 13:30 98 11/20/18 13:16 98 11/20/18 13:04 98 Intake and Output 11/20/18 11/21/18 11/21/18 22:59 06:59 14:59 Intake Total 200 Output Total 600 300 Balance -400 -300 Intake: IV 200 Magnesium Sulfate-D5w Pmx 100 1 gm In Dextrose/Water 1 100ml.bag @ 100 mls/hr IVPB ONCE ONE Rx#: [id number] Potassium Chloride 20 meq 100 In Water For Injection 1 100ml.bag @ 50 mls/hr IVPB ONCE STA Rx#: [id number] Output: Urine 600 300 Other: Voiding Method Urinal Urinal Weight 120 kg Results 11/21/18 11:23 11/21/18 06:45 Cardiac Enzymes 11/20/18 11/20/18 Range/Units 13:50 13:50 AST 67 H (17-59) U/L Troponin I <0.012 (0.000-0.034) ng/mL Coagulation 11/20/18 Range/Units 13:50 PT 12.6 H (9.0-12.0) sec APTT 24.9 (22.0-30.0) sec CBC 11/20/18 11/21/18 Range/Units 13:50 06:45 WBC 2.9 L 2.9 L (3.8-10.6) k/uL RBC 3.03 L 2.60 L (4.30-5.90) m/uL Hgb 9.6 L 8.3 L (13.0-17.5) gm/dL Hct 29.7 L 26.3 L (39.0-53.0) % Plt Count 223 189 (150-450) k/uL Comprehensive Metabolic Panel 11/20/18 11/20/18 11/20/18 Range/Units 13:50 20:04 23:50 Sodium 136 L (137-145) mmol/L Potassium 2.7 L* 3.0 L 2.7 L* (3.5-5.1) mmol/L Chloride 96 L (98-107) mmol/L Carbon Dioxide 32 H (22-30) mmol/L BUN 15 (9-20) mg/dL Creatinine 1.50 H (0.66-1.25) mg/dL Glucose 92 (74-99) mg/dL Calcium 7.7 L (8.4-10.2) mg/dL AST 67 H (17-59) U/L ALT 41 (21-72) U/L Alkaline Phosphatase 230 H (38-126) U/L Total Protein 4.8 L (6.3-8.2) g/dL Albumin 2.0 L (3.5-5.0) g/dL 11/21/18 Range/Units 06:45 Sodium 137 (137-145) mmol/L Potassium 3.4 L (3.5-5.1) mmol/L Chloride 102 (98-107) mmol/L Carbon Dioxide 30 (22-30) mmol/L BUN 13 (9-20) mg/dL Creatinine 1.35 H (0.66-1.25) mg/dL Glucose 74 (74-99) mg/dL Calcium 7.6 L (8.4-10.2) mg/dL AST (17-59) U/L ALT (21-72) U/L Alkaline Phosphatase (38-126) U/L Total Protein (6.3-8.2) g/dL Albumin (3.5-5.0) g/dL Current Medications Generic Name Dose Route Start Last Admin Trade Name Freq PRN Reason Stop Dose Admin Hydrocodone Bitart/Acetaminophen 1 each 11/20/18 17:58 11/21/18 03:07 Sanford 5-325 PO 1 each Q6HR PRN Administration Pain Allopurinol 300 mg 11/21/18 09:00 Zyloprim PO DAILY [facility] Cholecalciferol 5,000 unit 11/21/18 09:00 Vitamin D3 PO DAILY [facility] Hydromorphone HCl 0.5 mg 11/20/18 17:58 11/20/18 18:59 Dilaudid IVP 0.5 mg Q6HR PRN Administration Pain Potassium Chloride 10 meq/ IV 100 mls @ 100 mls/hr 11/21/18 09:00 Solution IVPB 11/21/18 12:59 Q1HR [facility] Protocol Metoprolol Tartrate 25 mg 11/20/18 21:00 11/20/18 19:49 Lopressor PO 25 mg BID JESSY Administration Miscellaneous Information 1 each 11/20/18 15:23 Potassium Per Protocol MISCELLANE DAILY PRN Per Protocol Protocol Miscellaneous Information 1 each 11/21/18 01:33 Magnesium Per Protocol MISCELLANE DAILY PRN Per Protocol Protocol Multivitamins 1 each 11/21/18 12:00 Theragran PO DAILY@1200 [facility] Pantoprazole Sodium 40 mg 11/20/18 18:00 11/21/18 06:21 Protonix PO 40 mg AC-BID [facility] Administration Intake and Output 11/20/18 11/21/18 11/21/18 22:59 06:59 14:59 Intake Total 200 Output Total 600 300 Balance -400 -300 Intake: IV 200 Magnesium Sulfate-D5w Pmx 100 1 gm In Dextrose/Water 1 100ml.bag @ 100 mls/hr IVPB ONCE ONE Rx#: [id number] Potassium Chloride 20 meq 100 In Water For Injection 1 100ml.bag @ 50 mls/hr IVPB ONCE STA Rx#: [id number] Output: Urine 600 300 Other: Voiding Method Urinal Urinal Weight 120 kg 11/21/18 06:45 11/21/18 06:45
--- NOTE | 2018-11-21 14:13 | CONS ---
CONSULTATION DATE OF SERVICE: November 21, 2018. REASON FOR CONSULTATION: Acute GI bleed. HISTORY OF PRESENT ILLNESS: The patient is a 68 -year-old white male with history of atrial fibrillation on Eliquis, came to the emergency room complaining of GI bleed for the last 2 weeks duration. The patient states that he has been having maroon-colored stools for the last 2 weeks. Usually 3 to 4 every day. He denies any abdominal pain. He reports no nausea, vomiting. He became somewhat lightheaded yesterday and hence came into the emergency room. He also had some chest discomfort. In the ER he was noted to have a hemoglobin of 9.6 g/dL. On thorough review of his records, the patient had an EGD and colonoscopy done by Dr. Jimenes in April of 2016 as a part of evaluation of anemia. EGD revealed evidence of a Bibi-en-Y gastric bypass surgery and colonoscopy revealed diffuse diverticulosis, small internal hemorrhoids and a cecal polyp that was removed. Recently he denies any NSAID use. PAST MEDICAL HISTORY: Significant for morbid obesity. He is status post gastric bypass surgery several years ago, history of atrial fibrillation on Eliquis, history of PE in the past, hypertension, hypercholesteremia, osteoarthritis. PAST SURGICAL HISTORY: Cholecystectomy, diverticular bowel resection with colostomy followed by reversal many years ago, history of hernia repair, bariatric surgery, esophageal hiatal hernia repair, EGD, colonoscopy in April of 2016. MEDICATIONS: At home: Zyloprim vitamin D, Lopressor, Eliquis, Protonix. SOCIAL HISTORY: No smoking or alcohol use. FAMILY HISTORY: Father had CT. Mother had ovarian cancer. REVIEW OF SYSTEMS: CARDIOPULMONARY: No chest pain or shortness of breath. GENITOURINARY: No dysuria or hematuria. Musculoskeletal: Unremarkable. SKIN unremarkable. Endocrine unremarkable. Psychiatric unremarkable. Neurology unremarkable. ENT vision unremarkable. Constitutional: No recent weight loss. No fever, chills, night sweats. PHYSICAL EXAMINATION: VITAL SIGNS: Blood pressure 85/50, pulse is 66, temperature 97. HEENT examination unremarkable. Conjunctivae pink. Sclerae anicteric. Oral cavity no lesions. Neck: No JVD or lymph node enlargement. Chest was clear to auscultation. HEART: Regular rate and rhythm. ABDOMEN: Soft. There was a ventral hernia noted. The midline scar benign. Bowel sounds are positive. Extremities: No pedal edema. Skin no rashes. NEUROLOGIC: Alert and oriented x3. No focal deficits. LABS: WBC 2.9, hemoglobin 9.6, platelets are normal. Today hemoglobin is 8.9. BUN 15, creatinine 1.5. Basic metabolic panel is within normal limits. INR 1.2. IMPRESSION: 1. Acute gastrointestinal bleed for the last 2 weeks duration, patient has been having maroon-colored stools 3-4 a day for the last 2 weeks. Hemoglobin dropped to 8.9 g/dL. He did have a CT of the abdomen and pelvis done that did not show any obvious source of bleeding. He did have a fatty liver with some anasarca noted, sigmoid diverticulosis, Bibi-en-Y gastric bypass surgery and enlarging umbilical hernia. EGD and colonoscopy as mentioned above in April of 2016 showed evidence of Bibi-en-Y gastric bypass surgery, diverticulosis, internal hemorrhoids and colon polyps. At this time possibility of a small bowel source of bleeding needs to be considered. 2. Atrial fibrillation on Eliquis, currently on hold. RECOMMENDATIONS: We will proceed with a small bowel capsule endoscopy tomorrow. Discussed with the patient risks, benefits and complications of procedure and he is agreeable to it. In the meantime, continue him on a clear liquid diet and repeat CBC in the morning and we will follow the patient closely during his hospital stay. Thank you for this consultation. TOMASA / BENY: [id number] /
[2018-11-21] MEDS: SODIUM CHLORIDE 0.9% 1,000 ML IV SCH ×2 (14:52→19:51)
[2018-11-21] MEDS: CHOLECALCIFEROL 1,000 UNIT TAB PO SCH (16:05)
[2018-11-21] MEDS ORDERED: MAGNESIUM CITRATE 296 ML BOTTLE PO ONE (19:00)
[2018-11-21 19:07] LABS: Anisocytosis Slight; HCT 27.4 % (39.0-53.0); HGB 8.8 gm/dL (13.0-17.5); Hypochromasia Slight; MCH 32.7 pg (25.0-35.0); MCHC 32.2 g/dL (31.0-37.0); MCV 101.6 fL (80.0-100.0); Macrocytosis Slight; Platelet Count 203 k/uL (150-450); RDW 16.2 % (11.5-15.5); WBC 2.5 k/uL (3.8-10.6)
[2018-11-22 01:32] LABS: Anisocytosis Slight; HCT 26.9 % (39.0-53.0); HGB 8.4 gm/dL (13.0-17.5); Hypochromasia Slight; MCH 31.5 pg (25.0-35.0); MCHC 31.4 g/dL (31.0-37.0); MCV 100.4 fL (80.0-100.0); Macrocytosis Slight; Mean Platelet Volume 8.5; Platelet Count 196 k/uL (150-450); RBC 2.68 m/uL (4.30-5.90); RDW 16.2 % (11.5-15.5); WBC 2.8 k/uL (3.8-10.6)
[2018-11-22] MEDS: SODIUM CHLORIDE 0.9% 1,000 ML IV SCH ×3 (03:53→19:45)
[2018-11-22] MEDS ORDERED: SIMETHICONE 40 MG/0.6 ML DROPS 2,000 MG/30 ML BOTTLE PO ONE (08:01)
[2018-11-22] MEDS: METOPROLOL TARTRATE 25 MG TAB PO SCH ×2 (08:21→21:25)
[2018-11-22 09:00] LABS: Anisocytosis Slight; HCT 28.7 % (39.0-53.0); Hypochromasia Slight; MCH 32.2 pg (25.0-35.0); MCHC 31.2 g/dL (31.0-37.0); Macrocytosis Moderate; Mean Platelet Volume 7.4; Platelet Count 206 k/uL (150-450); RBC 2.78 m/uL (4.30-5.90); RDW 16.4 % (11.5-15.5); WBC 2.3 k/uL (3.8-10.6)
[2018-11-22 10:45] LABS: Basophils # (M) 0.02 k/uL (0-0.2); Eosinophils # (M) 0.07 k/uL (0-0.7); Lymphocytes # (M) 1.13 k/uL (1.0-4.8); Monocytes # (M) 0.14 k/uL (0-1.0); Neutrophils # (M) 0.94 k/uL (1.3-7.7); Neutrophils % (M) 41 %; Nucleated Red Blood Cells 0 /100 WBC (0-0); Total Cells Counted 100
[2018-11-22] MEDS: ALLOPURINOL 300 MG TAB PO SCH (12:27)
[2018-11-22] MEDS: MULTIVITAMINS, THERA 1 EACH TAB PO SCH (12:27)
[2018-11-22] MEDS: CHOLECALCIFEROL 1,000 UNIT TAB PO SCH (12:27)
--- NOTE | 2018-11-22 12:38 | P.PN ---
Subjective Had A Scope Done This Morning Patient had multiple bowel movements yesterday but no blood No dizziness or racing heart No chest pain no shortness of breath no cough Objective - Vital Signs Vital signs: Vital Signs Temp 96.8 F L 11/22/18 08:00 Pulse 77 11/22/18 12:00 Resp 16 11/22/18 12:00 BP 95/68 11/22/18 12:00 Pulse Ox 94 L 11/22/18 12:00 Intake & Output 11/21/18 11/22/18 11/22/18 18:59 06:59 18:59 Intake Total 2160 200 0 Output Total 1200 Balance 960 200 0 Weight 108 kg Intake: IV 1400 Potassium Chloride 10 meq 100 In Water For Injection 1 100ml.bag @ 100 mls/hr IVPB Q1HR JESSY Rx#: [id number] Potassium Chloride 20 meq 300 In Water For Injection 1 100ml.bag @ 50 mls/hr IVPB ONCE STA Rx#: [id number] Sodium Chloride 0.9% 1, 1000 000 ml @ 999 mls/hr IV . Q1H1M ONE Rx#:[id number] Oral 760 200 0 Output: Urine 1200 Other: Voiding Method Urinal Urinal Urinal # Bowel Movements 2 - Exam On exam, alert and oriented x3. HEENT: Conjunctivae normal. eyes normal. NECK: No JVD. No thyroid enlargement. No LNs CARDIOVASCULAR: S1 and S2 heard RESPIRATION: Breath sounds diminished in the bases. No rhonchi or crackles. No bronchial breathing. ABDOMEN: Soft, nontender . No guarding. no masses palpable. No ascites, No hepatosplenomegaly.Bowel sounds heard. LEGS: No edema. no swelling NERVOUS SYSTEM: Cranial N 2-12 grossly normal. Moves all 4 limbs. No focal deficits. No sensory deficit. No signs of cerebellar dysfucntion. Weak bilaterally in lower extremities Skin: no ulcer no rash Joints: No active swelling. No inflammation. Lymphatic system. No LN neck axilla or groin. - Labs CBC & Chem 7: 11/22/18 07:55 11/21/18 18:15 Labs: Abnormal Lab Results - Last 24 Hours (Table) 11/21/18 11/22/18 11/22/18 Range/Units 18:15 01:00 07:55 WBC 2.5 L 2.8 L 2.3 L (3.8-10.6) k/uL RBC 2.70 L 2.68 L 2.78 L (4.30-5.90) m/uL Hgb 8.8 L 8.4 L 9.0 L (13.0-17.5) gm/dL Hct 27.4 L 26.9 L 28.7 L (39.0-53.0) % MCV 101.6 H 100.4 H 103.0 H (80.0-100.0) fL RDW 16.2 H 16.2 H 16.4 H (11.5-15.5) % Neutrophils # (Manual) 0.94 L (1.3-7.7) k/uL Assessment and Plan Assessment: - GI bleed - AKASH - Hypotension probably because of GI bleed - History of A. fib on eliquis -History of bariatric surgery - History of DJD Plan - Patient had Endoscopy done. We'll await GI for the recommendations - Cardiology on board - Depending upon the GI and cardiology recommendation need to decide whether to continue or hold the request - Continue rest of the medical care - Blood pressure still on the softer side. Continue with IV fluids - We'll follow the patient Time with Patient: Greater than 30
--- NOTE | 2018-11-22 15:39 | P.PN ---
Subjective Progress Note Date: 11/22/18 This is a pleasant 68-year-old male past medical history significant for atrial fibrillation, pulmonary embolism, right renal carcinoma status post right kidney cryoablation, chronic alcohol abuse and former nicotine dependence. He follows in the office with Dr. Mcadams. We have been asked to see him in consultation secondary to GI bleeding on long-term anticoagulation. He states for the previous few days he has noted significant dizziness and lightheaded with any sort of exertion or position changes. He denies room spinning but says he just feels extremely lightheaded. he also has felt a vague tight sensation around his entire torso, not exacerbated by exertion or movement of his upper body. He denies symptoms of shortness of breath, palpitations, nausea, vomiting or diaphoresis. He states when he sitting down and not moving he is asymptomatic. He has noticed his stools have been dark over the previous weeks. He has had this in the past and undergone a scope last year and was told that he had hemorrhoids. Laboratory data reviewed, hemoglobin on admission 9.6 repeat this morning 8.3 and subsequently thereafter 8.9. Platelets 202, sodium 137, potassium on admission 2. 7 repeat this morning 3.4, creatinine 1.35, magnesnesium on admission 1. 4 repeat this morning 2.0, total bilirubin 1.8, alkaline phosphate 230, cardiac enzymes negative 1. 11/22/2018 Patient was seen and examined this morning, overall feeling well. Currently undergoing capsule endoscopy study. EGD and colonoscopy were mentioned in April 2016. Objective - Vital Signs Vital signs: Vital Signs Temp 96.8 F L 11/22/18 08:00 Pulse 77 11/22/18 12:00 Resp 16 11/22/18 15:01 BP 95/68 11/22/18 12:00 Pulse Ox 94 L 11/22/18 12:00 Intake & Output 11/21/18 11/22/18 11/22/18 18:59 06:59 18:59 Intake Total 2160 200 0 Output Total 1200 Balance 960 200 0 Weight 108 kg Intake: IV 1400 Potassium Chloride 10 meq 100 In Water For Injection 1 100ml.bag @ 100 mls/hr IVPB Q1HR JESSY Rx#: [id number] Potassium Chloride 20 meq 300 In Water For Injection 1 100ml.bag @ 50 mls/hr IVPB ONCE STA Rx#: [id number] Sodium Chloride 0.9% 1, 1000 000 ml @ 999 mls/hr IV . Q1H1M ONE Rx#:[id number] Oral 760 200 0 Output: Urine 1200 Other: Voiding Method Urinal Urinal Urinal # Bowel Movements 2 - Exam GENERAL: This is a 68-year-old male in no apparent distress at the time of my examination. Flat affect. Obese. HEENT: Head is atraumatic, normocephalic. Pupils are equal, round. Sclerae anicteric. Conjunctivae are clear. Mucous membranes of the mouth are moist. Neck is supple. There is no jugular venous distention. No carotid bruit is heard. LUNGS: Clear to auscultation no wheezes, rales or rhonchi. No chest wall tenderness is noted on palpation or with deep breathing. Diminished bilaterally. HEART: Irregular rate and rhythm without murmurs, rubs or gallops. S1 and S2 heard. ABDOMEN: Soft, nontender. Bowel sounds are heard. No organomegaly noted. EXTREMITIES: No evidence of peripheral edema and no calf tenderness noted. VASCULAR: Radial and dorsalis pedis pulses palpated, no evidence of clubbing. NEUROLOGIC: Patient is awake, alert and oriented x3. - Labs CBC & Chem 7: 11/22/18 07:55 11/21/18 18:15 Labs: Abnormal Lab Results - Last 24 Hours (Table) 11/21/18 11/22/18 11/22/18 Range/Units 18:15 01:00 07:55 WBC 2.5 L 2.8 L 2.3 L (3.8-10.6) k/uL RBC 2.70 L 2.68 L 2.78 L (4.30-5.90) m/uL Hgb 8.8 L 8.4 L 9.0 L (13.0-17.5) gm/dL Hct 27.4 L 26.9 L 28.7 L (39.0-53.0) % MCV 101.6 H 100.4 H 103.0 H (80.0-100.0) fL RDW 16.2 H 16.2 H 16.4 H (11.5-15.5) % Neutrophils # (Manual) 0.94 L (1.3-7.7) k/uL Assessment and Plan Plan: ASSESSMENT Chest pain, atypical for angina. 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 DNP note has been reviewed, I agree with a documented findings and plan of care. Patient was seen and examined.
[2018-11-22] MEDS: PANTOPRAZOLE 40 MG TABLET PO SCH (16:36)
[2018-11-22] MEDS: HYDROcodone/APAP 5-325MG 1 EACH TAB PO PRN (21:24)
--- NOTE | 2018-11-22 22:22 | P.PN ---
Subjective Progress Note Date: 11/22/18 Principal diagnosis: GI bleed, anemia acute blood loss Patient seen lying in bed. Denying any further lower GI bleeding. Still reporting some abdominal pain. Objective - Vital Signs Vital signs: Vital Signs Temp 96.8 F L 11/22/18 08:00 Pulse 73 11/22/18 16:00 Resp 16 11/22/18 16:00 BP 93/53 11/22/18 16:00 Pulse Ox 95 11/22/18 16:00 Intake & Output 11/22/18 11/22/18 11/23/18 06:59 18:59 06:59 Intake Total 200 480 Balance 200 480 Weight 108 kg Intake: Oral 200 480 Other: Voiding Method Urinal Urinal # Voids 3 # Bowel Movements 2 2 - Exam On physical examination, patient appears comfortable in no apparent distress. HEAD: Normocephalic, atraumatic. EYES: No scleral icterus. No conjunctival injection. MOUTH: No lesions, tongue midline. NECK: Trachea midline, no gross abnormalities. CHEST: Clear to auscultation with no wheezing or rhonchi appreciated. HEART: Regular rate and rhythm. ABDOMEN: Soft, obese, mildly tender to palpation. Bowel sounds are positive. No organomegaly. No guarding or rigidity. EXTREMITIES: No pedal edema. SKIN: No rashes, no jaundice. NEUROLOGIC: Alert and oriented x3. No focal deficits. - Labs CBC & Chem 7: 11/22/18 07:55 11/21/18 18:15 Labs: Abnormal Lab Results - Last 24 Hours (Table) 11/22/18 11/22/18 Range/Units 01:00 07:55 WBC 2.8 L 2.3 L (3.8-10.6) k/uL RBC 2.68 L 2.78 L (4.30-5.90) m/uL Hgb 8.4 L 9.0 L (13.0-17.5) gm/dL Hct 26.9 L 28.7 L (39.0-53.0) % MCV 100.4 H 103.0 H (80.0-100.0) fL RDW 16.2 H 16.4 H (11.5-15.5) % Neutrophils # (Manual) 0.94 L (1.3-7.7) k/uL Assessment and Plan (1) GI bleed Narrative/Plan: Patient presenting with GI bleeding of 2 weeks duration with reports of 3-4 maroon-colored stools daily. Hemoglobin 8.9 on presentation. Computed tomography scan of the abdomen and pelvis without any obvious source of GI bleeding. EGD and colonoscopy in April 2018 significant for evidence of Bibi- en-Y gastric bypass surgery, diverticulosis, internal hemorrhoids and a colonic polyp. Consideration at this time is for small bowel bleed. Current Visit: Yes Status: Acute Code(s): K92.2 - GASTROINTESTINAL HEMORRHAGE, UNSPECIFIED SNOMED Code(s): 54370316 (2) Anemia due to acute blood loss Current Visit: No Status: Acute Code(s): D62 - ACUTE POSTHEMORRHAGIC ANEMIA SNOMED Code(s): 358894341 Plan: Supportive care Okay for diet Continue to hold anticoagulation therapy Video capsule endoscopy ordered for evaluation of small bowel Monitor hemoglobin and hematocrit Transfuse as needed Thank you for allowing us to participate in the care of the patient we will continue to follow
[2018-11-23] MEDS: SODIUM CHLORIDE 0.9% 1,000 ML IV SCH (02:47)
[2018-11-23] MEDS: PANTOPRAZOLE 40 MG TABLET PO SCH ×2 (06:38→16:27)
[2018-11-23] MEDS: METOPROLOL TARTRATE 25 MG TAB PO SCH (08:58)
[2018-11-23] MEDS: ALLOPURINOL 300 MG TAB PO SCH (08:59)
[2018-11-23] MEDS: CHOLECALCIFEROL 1,000 UNIT TAB PO SCH (08:59)
[2018-11-23] MEDS: MULTIVITAMINS, THERA 1 EACH TAB PO SCH (08:59)
--- NOTE | 2018-11-23 10:26 | P.PN ---
Subjective Progress Note Date: 11/23/18 Principal diagnosis: GI bleed Denies active bleeding no hematemesis hematochezia melena. Reports bilateral lower abdominal discomfort. Capsule endoscopy completed results are pending. CBC yesterday hemoglobin 9. Objective - Vital Signs Vital signs: Vital Signs Temp 98.4 F 11/23/18 03:20 Pulse 68 11/23/18 03:20 Resp 16 11/23/18 03:20 BP 98/55 11/23/18 03:20 Pulse Ox 95 11/22/18 20:00 Intake & Output 11/22/18 11/23/18 11/23/18 18:59 06:59 18:59 Intake Total 480 740 240 Balance 480 740 240 Weight 110 kg Intake: Intake, IV Titration 500 Amount Sodium Chloride 0.9% 1, 500 000 ml @ 125 mls/hr IV . Q8H [facility] Rx#:[id number] Oral 480 240 240 Other: Voiding Method Urinal Urinal # Voids 3 3 # Bowel Movements 2 - Exam General appearance: The patient is alert, oriented, in no acute distress. HET: Head is normocephalic and atraumatic. Pupils are equal and reactive. Oropharynx is clear without lesions. Neck: Supple without lymphadenopathy. Trachea midline. Heart: S1 S2. Regular rate and rhythm. Lungs: No crackles or wheezes are heard. Abdomen: Soft, mild tenderness to bilateral lower abdomen, nondistended with bowel sounds. No peritoneal signs. No palpable organomegaly or masses. Extremities: Normal skin color and turgor. No cyanosis, rash, ulceration, clubbing, or edema. Radial and pedal pulses are 2/4 bilaterally. Neurological: No focal deficits. Strength and sensation are grossly intact. - Labs CBC & Chem 7: 11/22/18 07:55 11/21/18 18:15 Labs: Abnormal Lab Results - Last 24 Hours (Table) 11/22/18 Range/Units 07:55 Neutrophils # (Manual) 0.94 L (1.3-7.7) k/uL Assessment and Plan (1) GI bleed Current Visit: Yes Status: Acute Code(s): K92.2 - GASTROINTESTINAL HEMORRHAGE, UNSPECIFIED SNOMED Code(s): 30772528 (2) Anemia due to acute blood loss Current Visit: No Status: Acute Code(s): D62 - ACUTE POSTHEMORRHAGIC ANEMIA SNOMED Code(s): 417040618 (3) History of Bibi-en-Y gastric bypass Current Visit: Yes Status: Acute Code(s): Z98.84 - BARIATRIC SURGERY STATUS SNOMED Code(s): 078602756 Plan: 1. 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 Continue monitor CBC. Light diet as tolerated. We'll continue to follow. Continue GI prophylaxis. Assessment and plan a care discussed with Dr. Jimenes
[2018-11-23 13:47] LABS: Anisocytosis Slight; HCT 30.8 % (39.0-53.0); HGB 9.2 gm/dL (13.0-17.5); Hypochromasia Marked; MCH 31.2 pg (25.0-35.0); MCHC 29.9 g/dL (31.0-37.0); MCV 104.1 fL (80.0-100.0); Macrocytosis Moderate; Mean Platelet Volume 8.2; Platelet Count 194 k/uL (150-450); RBC 2.96 m/uL (4.30-5.90); RDW 16.2 % (11.5-15.5); WBC 3.1 k/uL (3.8-10.6)
--- NOTE | 2018-11-23 14:55 | P.PN ---
Subjective Progress Note Date: 11/23/18 This is a pleasant 68-year-old male past medical history significant for atrial fibrillation, pulmonary embolism, right renal carcinoma status post right kidney cryoablation, chronic alcohol abuse and former nicotine dependence. He follows in the office with Dr. Mcadams. We have been asked to see him in consultation secondary to GI bleeding on long-term anticoagulation. He states for the previous few days he has noted significant dizziness and lightheaded with any sort of exertion or position changes. He denies room spinning but says he just feels extremely lightheaded. he also has felt a vague tight sensation around his entire torso, not exacerbated by exertion or movement of his upper body. He denies symptoms of shortness of breath, palpitations, nausea, vomiting or diaphoresis. He states when he sitting down and not moving he is asymptomatic. He has noticed his stools have been dark over the previous weeks. He has had this in the past and undergone a scope last year and was told that he had hemorrhoids. Laboratory data reviewed, hemoglobin on admission 9.6 repeat this morning 8.3 and subsequently thereafter 8.9. Platelets 202, sodium 137, potassium on admission 2. 7 repeat this morning 3.4, creatinine 1.35, magnesnesium on admission 1. 4 repeat this morning 2.0, total bilirubin 1.8, alkaline phosphate 230, cardiac enzymes negative 1. 11/22/2018 Patient was seen and examined this morning, overall feeling well. Currently undergoing capsule endoscopy study. EGD and colonoscopy were mentioned in April 2016. 11/23/2018 Patient seen and examined this morning, denies any black stool or blood in his stool, overall feeling well. No results yet on the capsule endoscopy. Objective - Vital Signs Vital signs: Vital Signs Temp 96.7 F L 11/23/18 08:00 Pulse 90 11/23/18 08:00 Resp 18 11/23/18 12:00 BP 94/50 11/23/18 08:00 Pulse Ox 99 11/23/18 08:00 Intake & Output 11/22/18 11/23/18 11/23/18 18:59 06:59 18:59 Intake Total 480 740 490 Balance 480 740 490 Weight 110 kg Intake: Intake, IV Titration 500 250 Amount Sodium Chloride 0.9% 1, 500 250 000 ml @ 125 mls/hr IV . Q8H [facility] Rx#:[id number] Oral 480 240 240 Other: Voiding Method Urinal Urinal Urinal # Voids 3 3 1 # Bowel Movements 2 1 - Exam GENERAL: This is a 68-year-old male in no apparent distress at the time of my examination. Flat affect. Obese. HEENT: Head is atraumatic, normocephalic. Pupils are equal, round. Sclerae anicteric. Conjunctivae are clear. Mucous membranes of the mouth are moist. Neck is supple. There is no jugular venous distention. No carotid bruit is heard. LUNGS: Clear to auscultation no wheezes, rales or rhonchi. No chest wall tenderness is noted on palpation or with deep breathing. Diminished bilaterally. HEART: Irregular rate and rhythm without murmurs, rubs or gallops. S1 and S2 heard. ABDOMEN: Soft, nontender. Bowel sounds are heard. No organomegaly noted. EXTREMITIES: No evidence of peripheral edema and no calf tenderness noted. VASCULAR: Radial and dorsalis pedis pulses palpated, no evidence of clubbing. NEUROLOGIC: Patient is awake, alert and oriented x3. - Labs CBC & Chem 7: 11/23/18 13:22 11/21/18 18:15 Labs: Abnormal Lab Results - Last 24 Hours (Table) 11/23/18 Range/Units 13:22 WBC 3.1 L (3.8-10.6) k/uL RBC 2.96 L (4.30-5.90) m/uL Hgb 9.2 L (13.0-17.5) gm/dL Hct 30.8 L (39.0-53.0) % MCV 104.1 H (80.0-100.0) fL MCHC 29.9 L (31.0-37.0) g/dL RDW 16.2 H (11.5-15.5) % Assessment and Plan Plan: ASSESSMENT Chest pain, atypical for angina. Acute GI bleeding, eliquis held Hypotension Hypokalemia Hypomagnesemia Paroxysmal atrial fibrillation on mcc anti-coagulation, held since admission Chronic alcohol abuse Plan At this point in time we will continue to hold the Eliquis until the capsule endoscopy study is completed and clearance is given by GI service. DNP note has been reviewed, I agree with a documented findings and plan of care. Patient was seen and examined.
--- NOTE | 2018-11-23 15:27 | P.PN ---
Subjective Had A Scope Done This Morning Patient had multiple bowel movements yesterday but no blood No dizziness or racing heart No chest pain no shortness of breath no cough 11/23/2018 Patient still feeling weak in his legs No more episodes of bleeding or bloody emesis No chest pain or racing heart Objective - Vital Signs Vital signs: Vital Signs Temp 96.7 F L 11/23/18 08:00 Pulse 90 11/23/18 08:00 Resp 18 11/23/18 12:00 BP 94/50 11/23/18 08:00 Pulse Ox 99 11/23/18 08:00 Intake & Output 11/22/18 11/23/18 11/23/18 18:59 06:59 18:59 Intake Total 480 740 730 Balance 480 740 730 Weight 110 kg Intake: Intake, IV Titration 500 250 Amount Sodium Chloride 0.9% 1, 500 250 000 ml @ 125 mls/hr IV . Q8H [facility] Rx#:[id number] Oral 480 240 480 Other: Voiding Method Urinal Urinal Urinal # Voids 3 3 1 # Bowel Movements 2 1 - Exam On exam, alert and oriented x3. HEENT: Conjunctivae normal. eyes normal. NECK: No JVD. No thyroid enlargement. No LNs CARDIOVASCULAR: S1 and S2 heard RESPIRATION: Breath sounds diminished in the bases. No rhonchi or crackles. No bronchial breathing. ABDOMEN: Soft, nontender . No guarding. no masses palpable. No ascites, No hepatosplenomegaly.Bowel sounds heard. LEGS: No edema. no swelling NERVOUS SYSTEM: Cranial N 2-12 grossly normal. Moves all 4 limbs. No focal deficits. No sensory deficit. No signs of cerebellar dysfucntion. Weak bilaterally in lower extremities Skin: no ulcer no rash Joints: No active swelling. No inflammation. Lymphatic system. No LN neck axilla or groin. - Labs CBC & Chem 7: 11/23/18 13:22 11/21/18 18:15 Labs: Abnormal Lab Results - Last 24 Hours (Table) 11/23/18 Range/Units 13:22 WBC 3.1 L (3.8-10.6) k/uL RBC 2.96 L (4.30-5.90) m/uL Hgb 9.2 L (13.0-17.5) gm/dL Hct 30.8 L (39.0-53.0) % MCV 104.1 H (80.0-100.0) fL MCHC 29.9 L (31.0-37.0) g/dL RDW 16.2 H (11.5-15.5) % Assessment and Plan Assessment: - GI bleed - AKASH - Hypotension probably because of GI bleed - History of A. fib on eliquis -History of bariatric surgery - History of DJD Plan - We'll wait for results of capsule endoscopy and further recommendations from GI regarding continuation or discontinuation of any gross - Cardiology service on board as well - PTOT consulted. We'll also consult Dr. Simon to see if he qualifies for inpatient rehab as the patient is very weak - Continue rest of medications - Blood pressure on the softer side. We will hold off on the fluids and see how he does
--- NOTE | 2018-11-23 16:40 | P.CONS ---
History of Present Illness - Chief Complaint Medical debility - History of Present Illness I had the opportunity to see patient for inpatient rehab consultation with regard to medical debility. He was admitted to [facility] November 20 with dizziness and GI bleed for which is seen by Drs. Jimenes and by cardiology for known cardiac disease. Computed tomography scan of abdomen and pelvis demonstrated diffuse anasarca, pleural effusions, sigmoid diverticulosis, Bibi-en-Y, enlarging umbilical hernia, hepatic steatosis and fat around the kidneys causing some mass effect. Seen by PT reports supervision for bed mobility minimal assistance for transfers and gait 25 feet with roller walker, fatigues. OT reports minimal assistance for upper dressing maximal assistance for lower dressing and moderate assistance for bathing and toileting. Minimal moderate assistance functional mobility. Previous functional history as elicited patient: 68-year-old right-handed white male who is single lives in one floor home alone. Retired. Describes independent with own cooking, laundry, driving, standing shower and gait without device. Denies tobacco and drinks at least [address] Albarado is regular doctor. Family history father with NV in mother with cancer. Review of Systems Review of systems: Diffuse edema which is problematic to patient in hands. ENT: Denies sneezes or discharge. Eyes: Denies discharge or photophobia. Cardiac: Denies chest pain or palpitation. Pulmonary: Denies cough or shortness of breath. Gastrointestinal: Denies nausea, emesis, constipation, diarrhea. Genitourinary: Denies discharge or frequency. Musculoskeletal: Denies muscle or bone aches. Neurologic: Generalized weakness. Endocrine: Denies shakes or sweats. Oncology: Denies cancers. Dermatologic: Denies rash, itching, pruritus. ALLERGY/immunology: Denies sneezes, rashes. Past Medical History Past Medical History: Atrial Fibrillation, Blood Disorder, Cancer, Osteoarthritis (OA), Pulmonary Embolus (PE) Additional Past Medical History / Comment(s): Afib/RVR, pulmonary embolism L lung, pancreatitis multiple times, ETOH abuse, recent diagnosed with R renal carcinoma with sx, BPH, past R lung pneumo with chest tube, diverticulitis, benign colon polyps, arthritis multiple joints, abdominal hernias. Dizziness fall and right rib fractures 09/15/19 History of Any Multi-Drug Resistant Organisms: None Reported Past Surgical History: Bariatric Surgery, Bowel Resection, Cholecystectomy, Hernia Repair, Joint Replacement Additional Past Surgical History / Comment(s): Recent (2017) r kidney lesion cryoablation at [facility], 2013 bowel resection d/t viscus perf with colostomy later reversed , gastric sleeve converted to bibi-en-Y 08/2014-post op wound infection, paraesphogeal hiat hernia repair, R inguinal and umbilical hernia repairs, colonoscopies, L total knee arthroplasty. Past Anesthesia/Blood Transfusion Reactions: No Reported Reaction Smoking Status: Former smoker - Past Family History Father Family Medical History: COPD, Myocardial Infarction (NV) Additional Family Medical History / Comment(s): Father from a NV at the age of 69yrs. Mother Family Medical History: Cancer Additional Family Medical History / Comment(s): Mother from ovarian cancer at the age of 69yrs. Sister(s) Family Medical History: Cancer Additional Family Medical History / Comment(s): at age 74yrs. Had breast cancer and a defibrillator Medications and Allergies Home Medications Medication Instructions Recorded Confirmed Type Allopurinol [Zyloprim] 300 mg PO DAILY 02/22/14 11/20/18 History Cholecalciferol [Vitamin D3] 5,000 unit PO DAILY 07/26/14 11/20/18 History Metoprolol Tartrate [Lopressor] 25 mg PO BID 06/28/17 11/20/18 History Multivitamin [Men's Multi-Vitamin] 1 tab PO DAILY #30 07/01/17 11/20/18 Rx Apixaban [Eliquis] 5 mg PO BID #0 06/28/18 11/20/18 Rx Pantoprazole Sodium [Protonix] 40 mg PO BID #60 tablet. 06/28/18 11/20/18 Rx Allergies Allergy/AdvReac Type Severity Reaction Status Date / Time No Known Allergies Allergy Verified 11/20/18 13:26 Physical Exam Vitals: Vital Signs Temp Pulse Resp BP Pulse Ox 11/23/18 15:48 18 11/23/18 12:00 18 11/23/18 08:00 96.7 F L 90 18 94/50 99 11/23/18 03:20 98.4 F 68 16 98/55 11/23/18 03:19 64 16 11/23/18 00:00 98 F 64 16 110/56 11/22/18 20:00 97.9 F 75 16 104/60 95 Intake and Output 11/23/18 11/23/18 11/23/18 06:59 14:59 22:59 Intake Total 740 730 Balance 740 730 Intake: Intake, IV Titration 500 250 Amount Sodium Chloride 0.9% 1, 500 250 000 ml @ 125 mls/hr IV . Q8H [facility] Rx#:[id number] Oral 240 480 Other: Voiding Method Urinal Urinal Urinal # Voids 3 1 # Bowel Movements 1 Weight 110 kg Skin: Good color, texture, turgor. General: Medium build and comfortable appearance. Head: Normocephalic, atraumatic. Eyes: Symmetric. Pupils equal round. Ears: Symmetric. Hearing within normal limits. Mouth: Clear. Neck: Supple. Carotid without bruit. Cardiac: Regular rate and rhythm. Lungs: Clear anteriorly and posteriorly. Abdomen: Soft active nontender. Extremities: Normal tone. At least mild edema noted uppers and lowers and 2-3+ in hands. Neurological: Mental status: Alert, cooperative, pleasant. Cranial nerves: Symmetric facial tone and trapezius. Motor: Can elevate all 4 limbs but at best antigravity. Sensation: Intact throughout. DTRs: Symmetric and equal throughout. Mobility: Sits and stands with assistance. Results CBC & Chem 7: 11/23/18 13:22 11/21/18 18:15 Labs: Abnormal Lab Results - Last 24 Hours (Table) 11/23/18 Range/Units 13:22 WBC 3.1 L (3.8-10.6) k/uL RBC 2.96 L (4.30-5.90) m/uL Hgb 9.2 L (13.0-17.5) gm/dL Hct 30.8 L (39.0-53.0) % MCV 104.1 H (80.0-100.0) fL MCHC 29.9 L (31.0-37.0) g/dL RDW 16.2 H (11.5-15.5) % Assessment and Plan (1) GI bleed Current Visit: Yes Status: Acute Code(s): K92.2 - GASTROINTESTINAL HEMORRHAGE, UNSPECIFIED SNOMED Code(s): 62426394 Plan: Impression: 1. Medical debility. 2. Anasarca. 3. Chronic pancreatitis. 4. History cancer. 5. Maria Antonia arthritis. 6. Atrophic fibrillation. 7. History of blood disorder and PE. Comments and plan: At this time PT and OT are ongoing parts safety concerns noted. Discussed possible inpatient rehab with patient. Note main barrier is that patient has no real support for return to home. He does report that a neighbor can check in on him.
[2018-11-23] MEDS: HYDROcodone/APAP 5-325MG 1 EACH TAB PO PRN (21:31)
[2018-11-24] MEDS: METOPROLOL TARTRATE 25 MG TAB PO SCH ×3 (01:23→22:55)
[2018-11-24 06:16] LABS: Anisocytosis Slight; Basophils % (A) 1 %; Eosinophils # (A) 0.1 k/uL (0-0.7); Eosinophils % (A) 2 %; HGB 8.1 gm/dL (13.0-17.5); Hypochromasia Marked; Lymphocytes # (A) 0.6 k/uL (1.0-4.8); Lymphocytes % (A) 24 %; MCH 30.8 pg (25.0-35.0); MCV 102.7 fL (80.0-100.0); Macrocytosis Moderate; Mean Platelet Volume 8.2; Monocytes # (A) 0.2 k/uL (0-1.0); Monocytes % (A) 9 %; Neutrophils # (A) 1.6 k/uL (1.3-7.7); Neutrophils % (A) 62 %; Platelet Count 168 k/uL (150-450); RBC 2.63 m/uL (4.30-5.90); RDW 16.2 % (11.5-15.5); WBC 2.5 k/uL (3.8-10.6)
[2018-11-24] MEDS: PANTOPRAZOLE 40 MG TABLET PO SCH ×2 (06:26→17:19)
[2018-11-24] MEDS: CHOLECALCIFEROL 1,000 UNIT TAB PO SCH (07:56)
[2018-11-24] MEDS: MULTIVITAMINS, THERA 1 EACH TAB PO SCH (07:57)
[2018-11-24] MEDS: ALLOPURINOL 300 MG TAB PO SCH (07:57)
--- NOTE | 2018-11-24 12:52 | P.PN ---
Subjective Progress Note Date: 11/24/18 Principal diagnosis: GI bleed Denies active bleeding no hematemesis hematochezia melena however when wiping scant amount of red blood on tissue. History of internal hemorrhoids. Capsule endoscopy reported no evidence of active bleeding. Hemoglobin 8.1. Objective - Vital Signs Vital signs: Vital Signs Temp 98.0 F 11/24/18 04:00 Pulse 73 11/24/18 11:56 Resp 16 11/24/18 11:56 BP 93/55 11/24/18 11:56 Pulse Ox 98 11/24/18 11:56 Intake & Output 11/23/18 11/24/18 11/24/18 18:59 06:59 18:59 Intake Total 952 240 Output Total 600 Balance 352 240 Weight 134.7 kg Intake: Intake, IV Titration 250 Amount Sodium Chloride 0.9% 1, 250 000 ml @ 125 mls/hr IV . [facility]H [facility] Rx#:[id number] Oral 702 240 Output: Urine 600 Other: Voiding Method Urinal Urinal Urinal # Voids 1 2 # Bowel Movements 1 2 - Exam General appearance: The patient is alert, oriented, in no acute distress. HET: Head is normocephalic and atraumatic. Pupils are equal and reactive. Oropharynx is clear without lesions. Neck: Supple without lymphadenopathy. Trachea midline. Heart: S1 S2. Regular rate and rhythm. Lungs: No crackles or wheezes are heard. Abdomen: Soft, mild tenderness to bilateral lower abdomen, nondistended with bowel sounds. No peritoneal signs. No palpable organomegaly or masses. Extremities: Normal skin color and turgor. No cyanosis, rash, ulceration, clubbing, or edema. Radial and pedal pulses are 2/4 bilaterally. Neurological: No focal deficits. Strength and sensation are grossly intact. - Labs CBC & Chem 7: 11/24/18 05:54 11/21/18 18:15 Labs: Abnormal Lab Results - Last 24 Hours (Table) 11/23/18 11/24/18 Range/Units 13:22 05:54 WBC 3.1 L 2.5 L (3.8-10.6) k/uL RBC 2.96 L 2.63 L (4.30-5.90) m/uL Hgb 9.2 L 8.1 L (13.0-17.5) gm/dL Hct 30.8 L 27.0 L (39.0-53.0) % MCV 104.1 H 102.7 H (80.0-100.0) fL MCHC 29.9 L 30.0 L (31.0-37.0) g/dL RDW 16.2 H 16.2 H (11.5-15.5) % Lymphocytes # 0.6 L (1.0-4.8) k/uL Assessment and Plan (1) GI bleed Current Visit: Yes Status: Acute Code(s): K92.2 - GASTROINTESTINAL HEMORRHAGE, UNSPECIFIED SNOMED Code(s): 61311645 (2) Anemia due to acute blood loss Current Visit: No Status: Acute Code(s): D62 - ACUTE POSTHEMORRHAGIC ANEMIA SNOMED Code(s): 245982646 (3) History of Bibi-en-Y gastric bypass Current Visit: Yes Status: Acute Code(s): Z98.84 - BARIATRIC SURGERY STATUS SNOMED Code(s): 140948844 (4) H/O hemorrhoids Current Visit: Yes Status: Acute Code(s): Z87.19 - PERSONAL HISTORY OF OTHER DISEASES OF THE DIGESTIVE SYSTEM SNOMED Code(s): 529993176 Plan: 1. Rectal bleeding suspected to be perirectal hemorrhoidal in nature will provide Anusol HC 25 mg suppository daily at bedtime. Continue to monitor CBC. Light diet as tolerated. We'll continue to follow. Continue GI prophylaxis. Assessment and plan a care discussed with Dr. Jimenes
--- NOTE | 2018-11-24 13:18 | P.PN ---
Subjective Had A Scope Done This Morning Patient had multiple bowel movements yesterday but no blood No dizziness or racing heart No chest pain no shortness of breath no cough 11/23/2018 Patient still feeling weak in his legs No more episodes of bleeding or bloody emesis No chest pain or racing heart 11/24/2018 Reason that he is doing okay Normal episodes of bleeding Still feeling weak Objective - Vital Signs Vital signs: Vital Signs Temp 98.0 F 11/24/18 04:00 Pulse 73 11/24/18 11:56 Resp 16 11/24/18 11:56 BP 93/55 11/24/18 11:56 Pulse Ox 98 11/24/18 11:56 Intake & Output 11/23/18 11/24/18 11/24/18 18:59 06:59 18:59 Intake Total 952 240 Output Total 600 Balance 352 240 Weight 134.7 kg Intake: Intake, IV Titration 250 Amount Sodium Chloride 0.9% 1, 250 000 ml @ 125 mls/hr IV . Q8H [facility] Rx#:[id number] Oral 702 240 Output: Urine 600 Other: Voiding Method Urinal Urinal Urinal # Voids 1 2 # Bowel Movements 1 2 - Exam On exam, alert and oriented x3. HEENT: Conjunctivae normal. eyes normal. NECK: No JVD. No thyroid enlargement. No LNs CARDIOVASCULAR: S1 and S2 heard RESPIRATION: Breath sounds diminished in the bases. No rhonchi or crackles. No bronchial breathing. ABDOMEN: Soft, nontender . No guarding. no masses palpable. No ascites, No hepatosplenomegaly.Bowel sounds heard. LEGS: No edema. no swelling NERVOUS SYSTEM: Cranial N 2-12 grossly normal. Moves all 4 limbs. No focal deficits. No sensory deficit. No signs of cerebellar dysfucntion. Weak bilaterally in lower extremities Skin: no ulcer no rash Joints: No active swelling. No inflammation. Lymphatic system. No LN neck axilla or groin. - Labs CBC & Chem 7: 11/24/18 05:54 11/21/18 18:15 Labs: Abnormal Lab Results - Last 24 Hours (Table) 11/23/18 11/24/18 Range/Units 13:22 05:54 WBC 3.1 L 2.5 L (3.8-10.6) k/uL RBC 2.96 L 2.63 L (4.30-5.90) m/uL Hgb 9.2 L 8.1 L (13.0-17.5) gm/dL Hct 30.8 L 27.0 L (39.0-53.0) % MCV 104.1 H 102.7 H (80.0-100.0) fL MCHC 29.9 L 30.0 L (31.0-37.0) g/dL RDW 16.2 H 16.2 H (11.5-15.5) % Lymphocytes # 0.6 L (1.0-4.8) k/uL Assessment and Plan Assessment: - GI bleed - AKASH - Hypotension probably because of GI bleed - History of A. fib on eliquis -History of bariatric surgery - History of DJD Plan - We'll wait for GI recommendations regarding starting her requests. - Patient will probably need rehab patient is currently getting evaluated - Continue rest of the medications - We'll follow Time with Patient: Less than 30
[2018-11-24 14:43] LABS: Anisocytosis Slight; Basophils % (A) 1 %; Eosinophils # (A) 0.1 k/uL (0-0.7); Eosinophils % (A) 1 %; HCT 32.4 % (39.0-53.0); HGB 10.2 gm/dL (13.0-17.5); Hypochromasia Moderate; Lymphocytes # (A) 0.8 k/uL (1.0-4.8); Lymphocytes % (A) 24 %; MCH 32.6 pg (25.0-35.0); MCHC 31.6 g/dL (31.0-37.0); MCV 103.1 fL (80.0-100.0); Macrocytosis Moderate; Monocytes # (A) 0.3 k/uL (0-1.0); Monocytes % (A) 10 %; Neutrophils # (A) 2.1 k/uL (1.3-7.7); Neutrophils % (A) 60 %; Platelet Count 157 k/uL (150-450); RBC 3.14 m/uL (4.30-5.90); RDW 16.3 % (11.5-15.5); WBC 3.5 k/uL (3.8-10.6)
--- NOTE | 2018-11-24 15:22 | P.PN ---
Subjective Progress Note Date: 11/24/18 This is a pleasant 68-year-old male past medical history significant for atrial fibrillation, pulmonary embolism, right renal carcinoma status post right kidney cryoablation, chronic alcohol abuse and former nicotine dependence. He follows in the office with Dr. Mcadams. We have been asked to see him in consultation secondary to GI bleeding on long-term anticoagulation. He states for the previous few days he has noted significant dizziness and lightheaded with any sort of exertion or position changes. He denies room spinning but says he just feels extremely lightheaded. he also has felt a vague tight sensation around his entire torso, not exacerbated by exertion or movement of his upper body. He denies symptoms of shortness of breath, palpitations, nausea, vomiting or diaphoresis. He states when he sitting down and not moving he is asymptomatic. He has noticed his stools have been dark over the previous weeks. He has had this in the past and undergone a scope last year and was told that he had hemorrhoids. Laboratory data reviewed, hemoglobin on admission 9.6 repeat this morning 8.3 and subsequently thereafter 8.9. Platelets 202, sodium 137, potassium on admission 2. 7 repeat this morning 3.4, creatinine 1.35, magnesnesium on admission 1. 4 repeat this morning 2.0, total bilirubin 1.8, alkaline phosphate 230, cardiac enzymes negative 1. 11/22/2018 Patient was seen and examined this morning, overall feeling well. Currently undergoing capsule endoscopy study. EGD and colonoscopy were mentioned in April 2016. 11/23/2018 Patient seen and examined this morning, denies any black stool or blood in his stool, overall feeling well. No results yet on the capsule endoscopy. 11/24/2018 Patient was seen and examined today, no results yet from GI service. Once we get their recommendations, patient will need to be reinitiated on anticoagulation if okay with them. Objective - Vital Signs Vital signs: Vital Signs Temp 98.0 F 11/24/18 04:00 Pulse 73 11/24/18 11:56 Resp 16 11/24/18 11:56 BP 93/55 11/24/18 11:56 Pulse Ox 98 11/24/18 11:56 Intake & Output 11/23/18 11/24/18 11/24/18 18:59 06:59 18:59 Intake Total 952 240 Output Total 600 Balance 352 240 Weight 134.7 kg Intake: Intake, IV Titration 250 Amount Sodium Chloride 0.9% 1, 250 000 ml @ 125 mls/hr IV . Q8H [facility] Rx#:[id number] Oral 702 240 Output: Urine 600 Other: Voiding Method Urinal Urinal Urinal # Voids 1 2 # Bowel Movements 1 2 - Exam GENERAL: This is a 68-year-old male in no apparent distress at the time of my examination. Flat affect. Obese. HEENT: Head is atraumatic, normocephalic. Pupils are equal, round. Sclerae anicteric. Conjunctivae are clear. Mucous membranes of the mouth are moist. Neck is supple. There is no jugular venous distention. No carotid bruit is heard. LUNGS: Clear to auscultation no wheezes, rales or rhonchi. No chest wall tendern ess is noted on palpation or with deep breathing. Diminished bilaterally. HEART: Irregular rate and rhythm without murmurs, rubs or gallops. S1 and S2 heard. ABDOMEN: Soft, nontender. Bowel sounds are heard. No organomegaly noted. EXTREMITIES: No evidence of peripheral edema and no calf tenderness noted. VASCULAR: Radial and dorsalis pedis pulses palpated, no evidence of clubbing. NEUROLOGIC: Patient is awake, alert and oriented x3. - Labs CBC & Chem 7: 11/24/18 12:57 11/21/18 18:15 Labs: Abnormal Lab Results - Last 24 Hours (Table) 11/24/18 11/24/18 Range/Units 05:54 12:57 WBC 2.5 L 3.5 L (3.8-10.6) k/uL RBC 2.63 L 3.14 L (4.30-5.90) m/uL Hgb 8.1 L 10.2 L (13.0-17.5) gm/dL Hct 27.0 L 32.4 L (39.0-53.0) % MCV 102.7 H 103.1 H (80.0-100.0) fL MCHC 30.0 L (31.0-37.0) g/dL RDW 16.2 H 16.3 H (11.5-15.5) % Lymphocytes # 0.6 L 0.8 L (1.0-4.8) k/uL Assessment and Plan Plan: ASSESSMENT Chest pain, atypical for angina. Acute GI bleeding, eliquis held Hypotension Hypokalemia Hypomagnesemia Paroxysmal atrial fibrillation on cotton baler anti-coagulation, held since admission Chronic alcohol abuse Plan At this point in time we will continue to hold the Eliquis till okayed by GI service. DNP note has been reviewed, I agree with a documented findings and plan of care. Patient was seen and examined.
[2018-11-24] MEDS: HYDROcodone/APAP 5-325MG 1 EACH TAB PO PRN ×2 (17:19→23:28)
[2018-11-24] MEDS: HYDROCORTISONE SUPPOSITORY 25 MG SUPP RECTAL SCH (22:55)
[2018-11-25 06:45] LABS: Basophils % (A) 1 %; Eosinophils # (A) 0.1 k/uL (0-0.7); Eosinophils % (A) 2 %; HCT 27.6 % (39.0-53.0); Hypochromasia Marked; Lymphocytes # (A) 0.7 k/uL (1.0-4.8); Lymphocytes % (A) 27 %; MCH 30.4 pg (25.0-35.0); MCHC 29.1 g/dL (31.0-37.0); MCV 104.3 fL (80.0-100.0); Macrocytosis Moderate; Mean Platelet Volume 8.3; Monocytes # (A) 0.3 k/uL (0-1.0); Monocytes % (A) 10 %; Neutrophils # (A) 1.5 k/uL (1.3-7.7); Neutrophils % (A) 57 %; Platelet Count 167 k/uL (150-450); RBC 2.65 m/uL (4.30-5.90); WBC 2.6 k/uL (3.8-10.6)
[2018-11-25] MEDS: PANTOPRAZOLE 40 MG TABLET PO SCH ×2 (06:45→16:59)
[2018-11-25 07:01] LABS: Anion Gap 4 mmol/L; Blood Urea Nitrogen 16 mg/dL (9-20); Calcium 7.6 mg/dL (8.4-10.2); Carbon Dioxide 24 mmol/L (22-30); Chloride 110 mmol/L (98-107); Glucose 81 mg/dL (74-99); Potassium 3.2 mmol/L (3.5-5.1); Sodium 138 mmol/L (137-145)
[2018-11-25] MEDS: ALLOPURINOL 300 MG TAB PO SCH (08:30)
[2018-11-25] MEDS: MULTIVITAMINS, THERA 1 EACH TAB PO SCH (08:31)
[2018-11-25] MEDS: CHOLECALCIFEROL 1,000 UNIT TAB PO SCH (08:31)
[2018-11-25] MEDS: HYDROcodone/APAP 5-325MG 1 EACH TAB PO PRN ×3 (08:31→22:06)
[2018-11-25 08:53] LABS: Albumin 1.6 g/dL (3.5-5.0); Bilirubin, Delta 0.6 mg/dL (0.0-0.2); Bilirubin,Unconjugated 0.6 mg/dL (0.0-1.1); Magnesium 1.6 mg/dL (1.6-2.3); Total Bilirubin 1.2 mg/dL (0.2-1.3); Total Protein 4.2 g/dL (6.3-8.2)
[2018-11-25] MEDS: POTASSIUM CHLORIDE ER 20 MEQ TAB.ER PO SCH ×2 (09:11→10:33)
[2018-11-25] MEDS: METOPROLOL TARTRATE 25 MG TAB PO SCH ×2 (09:12→22:06)
[2018-11-25] MEDS ORDERED: Potassium Replacement Protocol 1 EACH MISC MISCELLANE PRN (11:13)
[2018-11-25] MEDS ORDERED: MAGNESIUM SULFATE-D5W PMX 1 GM in DEXTROSE/WATER 1 100ML.BAG IVPB ONE (11:13)
--- NOTE | 2018-11-25 11:19 | P.PN ---
Subjective Progress Note Date: 11/25/18 Principal diagnosis: GI bleed Denies active bleeding no hematemesis hematochezia melena hemoglobin 8.0. History of internal hemorrhoids. Capsule endoscopy reported no evidence of active bleeding. Objective - Vital Signs Vital signs: Vital Signs Temp 97.9 F 11/25/18 08:00 Pulse 119 H 11/25/18 08:00 Resp 18 11/25/18 08:00 BP 95/56 11/25/18 08:35 Pulse Ox 96 11/25/18 08:00 Intake & Output 11/24/18 11/25/18 11/25/18 18:59 06:59 18:59 Intake Total 720 Output Total 350 Balance 720 -350 Weight 134.7 kg Intake: Oral 720 Output: Urine 350 Other: Voiding Method Urinal Urinal # Voids 3 0 0 # Bowel Movements 2 - Exam General appearance: The patient is alert, oriented, in no acute distress. HET: Head is normocephalic and atraumatic. Pupils are equal and reactive. Oropharynx is clear without lesions. Neck: Supple without lymphadenopathy. Trachea midline. Heart: S1 S2. Regular rate and rhythm. Lungs: No crackles or wheezes are heard. Abdomen: Soft, mild tenderness to bilateral lower abdomen, nondistended with bowel sounds. No peritoneal signs. No palpable organomegaly or masses. Extremities: +2 BLE edema. Neurological: No focal deficits. Strength and sensation are grossly intact. - Labs CBC & Chem 7: 11/25/18 06:06 11/25/18 06:06 Labs: Abnormal Lab Results - Last 24 Hours (Table) 11/24/18 11/25/18 11/25/18 Range/Units 12:57 06:06 06:06 WBC 3.5 L 2.6 L (3.8-10.6) k/uL RBC 3.14 L 2.65 L (4.30-5.90) m/uL Hgb 10.2 L 8.0 L D (13.0-17.5) gm/dL Hct 32.4 L 27.6 L (39.0-53.0) % MCV 103.1 H 104.3 H (80.0-100.0) fL MCHC 29.1 L (31.0-37.0) g/dL RDW 16.3 H 16.0 H (11.5-15.5) % Lymphocytes # 0.8 L 0.7 L (1.0-4.8) k/uL Potassium 3.2 L (3.5-5.1) mmol/L Chloride 110 H (98-107) mmol/L Calcium 7.6 L (8.4-10.2) mg/dL Delta Bilirubin (0.0-0.2) mg/dL Alkaline Phosphatase (38-126) U/L Total Protein (6.3-8.2) g/dL Albumin (3.5-5.0) g/dL 11/25/18 Range/Units 06:06 WBC (3.8-10.6) k/uL RBC (4.30-5.90) m/uL Hgb (13.0-17.5) gm/dL Hct (39.0-53.0) % MCV (80.0-100.0) fL MCHC (31.0-37.0) g/dL RDW (11.5-15.5) % Lymphocytes # (1.0-4.8) k/uL Potassium (3.5-5.1) mmol/L Chloride (98-107) mmol/L Calcium (8.4-10.2) mg/dL Delta Bilirubin 0.6 H (0.0-0.2) mg/dL Alkaline Phosphatase 201 H (38-126) U/L Total Protein 4.2 L (6.3-8.2) g/dL Albumin 1.6 L (3.5-5.0) g/dL Assessment and Plan (1) GI bleed Current Visit: Yes Status: Acute Code(s): K92.2 - GASTROINTESTINAL HEMORRHAGE, UNSPECIFIED SNOMED Code(s): 75650729 (2) Anemia due to acute blood loss Current Visit: No Status: Acute Code(s): D62 - ACUTE POSTHEMORRHAGIC ANEMIA SNOMED Code(s): 097253504 (3) History of Bibi-en-Y gastric bypass Current Visit: Yes Status: Acute Code(s): Z98.84 - BARIATRIC SURGERY STATUS SNOMED Code(s): 492507688 (4) H/O hemorrhoids Current Visit: Yes Status: Acute Code(s): Z87.19 - PERSONAL HISTORY OF OTHER DISEASES OF THE DIGESTIVE SYSTEM SNOMED Code(s): 144201043 Plan: 1. Continue present medical therapy. Check iron indices. Continue to monitor CBC. Light diet as tolerated. We'll continue to follow. Continue GI prophylaxis. Assessment and plan a care discussed with Dr. Jimenes
--- NOTE | 2018-11-25 11:22 | P.PN ---
Subjective This is a pleasant 68 years old male with past medical history of atrial fibrillation, on anticoagulation,, history of PE on Eliquis. History of al coholism and smoking cigarettes. History of right renal cell carcinoma. BPH, history of diverticulitis and osteoarthritis. History of dizziness and fall with rib fracture in 09/15/2019. He is patient of Dr. Hood. He presents because of lightheadedness and blood per rectum. Patient his lightheadedness is significantly improved although he still have it. No more blood per rectum of his stool is yellow in color, however when he was up cystoscopy he discussed some of blood. His epigastric pain which was started yesterday is significantly resolved fpc from 02/28 down to 3/10 In severity.. Tolerating diet well. Patient is being followed by GI and cardiology team. Still Eliquis and hold still sales property manager final recommendation. On exam patient presents stable, nonlabored. Abdominal exam is benign. However he is fluid overloaded with swelling in his legs and arms. Labs showing mild hypokalemia and magnesium anemia. Creatinine was normal at 0.8. Liver enzymes within normal. As well as plasma bilirubin. WBC is 2.6K, which is stable. Hemoglobin 8.0, and platelets 167. Continue with Protonix twice a day. Eliquis is still on hold. We'll start diuresis and the patient. Objective - Vital Signs Vital signs: Vital Signs Temp 97.9 F 11/25/18 08:00 Pulse 119 H 11/25/18 08:00 Resp 18 11/25/18 08:00 BP 95/56 11/25/18 08:35 Pulse Ox 96 11/25/18 08:00 Intake & Output 11/24/18 11/25/18 11/25/18 18:59 06:59 18:59 Intake Total 720 Output Total 350 Balance 720 -350 Weight 134.7 kg Intake: Oral 720 Output: Urine 350 Other: Voiding Method Urinal Urinal # Voids 3 0 0 # Bowel Movements 2 - Exam GENERAL: The patient is alert and oriented x3, not in any acute distress. Well developed, well nourished. HEENT: Pupils are round and equally reacting to light. EOMI. No scleral icterus. No conjunctival pallor. Normocephalic, atraumatic. No pharyngeal erythema. No thyromegaly. CARDIOVASCULAR: S1 and S2 present. No murmurs, rubs, or gallops. PULMONARY: Chest is clear to auscultation, no wheezing or crackles. -ABDOMEN: Soft, mild epigastric tenderness, nondistended, normoactive bowel sounds. No palpable organomegaly. MUSCULOSKELETAL: No joint swelling or deformity. -EXTREMITIES: No cyanosis, clubbing. Bilateral leg and arm swelling and edema. NEUROLOGICAL: Gross neurological examination did not reveal any focal deficits. SKIN: No rashes. - Labs CBC & Chem 7: 11/25/18 06:06 11/25/18 06:06 Labs: Abnormal Lab Results - Last 24 Hours (Table) 11/24/18 11/25/18 11/25/18 Range/Units 12:57 06:06 06:06 WBC 3.5 L 2.6 L (3.8-10.6) k/uL RBC 3.14 L 2.65 L (4.30-5.90) m/uL Hgb 10.2 L 8.0 L D (13.0-17.5) gm/dL Hct 32.4 L 27.6 L (39.0-53.0) % MCV 103.1 H 104.3 H (80.0-100.0) fL MCHC 29.1 L (31.0-37.0) g/dL RDW 16.3 H 16.0 H (11.5-15.5) % Lymphocytes # 0.8 L 0.7 L (1.0-4.8) k/uL Potassium 3.2 L (3.5-5.1) mmol/L Chloride 110 H (98-107) mmol/L Calcium 7.6 L (8.4-10.2) mg/dL Delta Bilirubin (0.0-0.2) mg/dL Alkaline Phosphatase (38-126) U/L Total Protein (6.3-8.2) g/dL Albumin (3.5-5.0) g/dL 11/25/18 Range/Units 06:06 WBC (3.8-10.6) k/uL RBC (4.30-5.90) m/uL Hgb (13.0-17.5) gm/dL Hct (39.0-53.0) % MCV (80.0-100.0) fL MCHC (31.0-37.0) g/dL RDW (11.5-15.5) % Lymphocytes # (1.0-4.8) k/uL Potassium (3.5-5.1) mmol/L Chloride (98-107) mmol/L Calcium (8.4-10.2) mg/dL Delta Bilirubin 0.6 H (0.0-0.2) mg/dL Alkaline Phosphatase 201 H (38-126) U/L Total Protein 4.2 L (6.3-8.2) g/dL Albumin 1.6 L (3.5-5.0) g/dL Assessment and Plan Assessment: Chest pain, atypical for angina. Acute GI bleeding, eliquis on hold. Mostly secondary to hemorrhoids. Hemorrhoids Hypotension, improving Acute kidney injury, improved Kidney stone Hypokalemia, replaced Hypomagnesemia, replaced Paroxysmal atrial fibrillation on nursing home anti-coagulation, Eliquis is held since admission Chronic alcohol abuse History of pulmonary embolism, Eliquis on hold History of cigarette smoking. Plan: This is a pleasant 68 years old male who presents because of GI bleed, suspected due to hemorrhoids. Cardiology and gastric neurology input is appreciated. Eliquis is on hold. Patient and his Protonix twice a day. Also he has fluid overload so started him on Lasix today. Creatinine is back to baseline. Liver functions are improving.Labs and medication were reviewed.. Continue same treatment. Continue with symptomatic treatment. Resume home medication. Monitor lytes and vitals. DVT and GI prophylaxis. Further recommendations of the clinical course of the patient DVT prophylaxis: Antecolic position on hold for possible GI bleed GI Prophylaxis: Ppi Prognosis is guarded
[2018-11-25] MEDS: FUROSEMIDE 10 MG/ML 4 ML VIAL IV SCH ×2 (12:01→22:08)
--- NOTE | 2018-11-25 13:09 | P.PN ---
Subjective Progress Note Date: 11/25/18 This is a pleasant 68-year-old male past medical history significant for atrial fibrillation, pulmonary embolism, right renal carcinoma status post right kidney cryoablation, chronic alcohol abuse and former nicotine dependence. He follows in the office with Dr. Mcadams. We have been asked to see him in consultation secondary to GI bleeding on long-term anticoagulation. He states for the previous few days he has noted significant dizziness and lightheaded with any sort of exertion or position changes. He denies room spinning but says he just feels extremely lightheaded. he also has felt a vague tight sensation around his entire torso, not exacerbated by exertion or movement of his upper body. He denies symptoms of shortness of breath, palpitations, nausea, vomiting or diaphoresis. He states when he sitting down and not moving he is asymptomatic. He has noticed his stools have been dark over the previous weeks. He has had this in the past and undergone a scope last year and was told that he had hemorrhoids. Laboratory data reviewed, hemoglobin on admission 9.6 repeat this morning 8.3 and subsequently thereafter 8.9. Platelets 202, sodium 137, potassium on admission 2. 7 repeat this morning 3.4, creatinine 1.35, magnesnesium on admission 1. 4 repeat this morning 2.0, total bilirubin 1.8, alkaline phosphate 230, cardiac enzymes negative 1. 11/22/2018 Patient was seen and examined this morning, overall feeling well. Currently undergoing capsule endoscopy study. EGD and colonoscopy were mentioned in April 2016. 11/23/2018 Patient seen and examined this morning, denies any black stool or blood in his stool, overall feeling well. No results yet on the capsule endoscopy. 11/24/2018 Patient was seen and examined today, no results yet from GI service. Once we get their recommendations, patient will need to be reinitiated on anticoagulation if okay with them. 11/25/2018 Patient seen and examined this morning, and plating that he has some more swelling in his bilateral lower extremities today. Still have no recommendations from GI service regarding resuming anticoagulation. Blood cell count 2.6, hemoglobin 8.0, platelet count 167. Odium 138, potassium 3.2, BUN 16 and creatinine 0.8 today. Patient has been initiated on IV Lasix today by primary. Objective - Vital Signs Vital signs: Vital Signs Temp 98.2 F 11/25/18 12:00 Pulse 82 11/25/18 12:00 Resp 20 11/25/18 12:00 BP 108/61 11/25/18 12:00 Pulse Ox 91 L 11/25/18 12:00 Intake & Output 11/24/18 11/25/18 11/25/18 18:59 06:59 18:59 Intake Total 720 Output Total 650 Balance 720 -650 Weight 134.7 kg Intake: Oral 720 Output: Urine 650 Other: Voiding Method Urinal Urinal # Voids 3 0 0 # Bowel Movements 2 - Exam GENERAL: This is a 68-year-old male in no apparent distress at the time of my examination. Flat affect. Obese. HEENT: Head is atraumatic, normocephalic. Pupils are equal, round. Sclerae anicteric. Conjunctivae are clear. Mucous membranes of the mouth are moist. Neck is supple. There is no jugular venous distention. No carotid bruit is heard. LUNGS: Clear to auscultation no wheezes, rales or rhonchi. No chest wall tenderness is noted on palpation or with deep breathing. Diminished bilaterally. HEART: Irregular rate and rhythm without murmurs, rubs or gallops. S1 and S2 hea rd. ABDOMEN: Soft, nontender. Bowel sounds are heard. No organomegaly noted. EXTREMITIES: Trace to 1+ evidence of peripheral edema and no calf tenderness noted. VASCULAR: Radial and dorsalis pedis pulses palpated, no evidence of clubbing. NEUROLOGIC: Patient is awake, alert and oriented x3. - Labs CBC & Chem 7: 11/25/18 06:06 11/25/18 06:06 Labs: Abnormal Lab Results - Last 24 Hours (Table) 11/24/18 11/25/18 11/25/18 Range/Units 12:57 06:06 06:06 WBC 3.5 L 2.6 L (3.8-10.6) k/uL RBC 3.14 L 2.65 L (4.30-5.90) m/uL Hgb 10.2 L 8.0 L D (13.0-17.5) gm/dL Hct 32.4 L 27.6 L (39.0-53.0) % MCV 103.1 H 104.3 H (80.0-100.0) fL MCHC 29.1 L (31.0-37.0) g/dL RDW 16.3 H 16.0 H (11.5-15.5) % Lymphocytes # 0.8 L 0.7 L (1.0-4.8) k/uL Potassium 3.2 L (3.5-5.1) mmol/L Chloride 110 H (98-107) mmol/L Calcium 7.6 L (8.4-10.2) mg/dL Delta Bilirubin (0.0-0.2) mg/dL Alkaline Phosphatase (38-126) U/L Total Protein (6.3-8.2) g/dL Albumin (3.5-5.0) g/dL 11/25/18 Range/Units 06:06 WBC (3.8-10.6) k/uL RBC (4.30-5.90) m/uL Hgb (13.0-17.5) gm/dL Hct (39.0-53.0) % MCV (80.0-100.0) fL MCHC (31.0-37.0) g/dL RDW (11.5-15.5) % Lymphocytes # (1.0-4.8) k/uL Potassium (3.5-5.1) mmol/L Chloride (98-107) mmol/L Calcium (8.4-10.2) mg/dL Delta Bilirubin 0.6 H (0.0-0.2) mg/dL Alkaline Phosphatase 201 H (38-126) U/L Total Protein 4.2 L (6.3-8.2) g/dL Albumin 1.6 L (3.5-5.0) g/dL Assessment and Plan Plan: ASSESSMENT Chest pain, atypical for angina. Acute GI bleeding, eliquis held Hypotension Hypokalemia Hypomagnesemia Paroxysmal atrial fibrillation on correction anti-coagulation, held since admission Chronic alcohol abuse Plan At this point in time we will continue to hold the Eliquis till okayed by GI service. Patient has also been resumed on IV Lasix twice a day. DNP note has been reviewed, I agree with a documented findings and plan of care. Patient was seen and examined.
[2018-11-26 06:54] LABS: Calcium 7.6 mg/dL (8.4-10.2); Magnesium 1.5 mg/dL (1.6-2.3); Potassium 3.6 mmol/L (3.5-5.1)
[2018-11-26] MEDS ORDERED: Potassium Replacement Protocol 1 EACH MISC MISCELLANE PRN (08:20)
[2018-11-26] MEDS: HYDROCORTISONE SUPPOSITORY 25 MG SUPP RECTAL SCH ×2 (08:29→22:57)
[2018-11-26] MEDS ORDERED: POTASSIUM CHLORIDE ER 20 MEQ TAB.ER PO ONE (09:00)
[2018-11-26] MEDS: ALLOPURINOL 300 MG TAB PO SCH (09:03)
[2018-11-26] MEDS: MULTIVITAMINS, THERA 1 EACH TAB PO SCH (09:03)
[2018-11-26] MEDS: METOPROLOL TARTRATE 25 MG TAB PO SCH ×3 (09:03→20:24)
[2018-11-26] MEDS: HYDROcodone/APAP 5-325MG 1 EACH TAB PO PRN ×3 (09:03→22:56)
[2018-11-26] MEDS: FUROSEMIDE 10 MG/ML 4 ML VIAL IV SCH ×2 (09:03→20:16)
[2018-11-26] MEDS: PANTOPRAZOLE 40 MG TABLET PO SCH ×2 (09:03→16:33)
[2018-11-26] MEDS: CHOLECALCIFEROL 1,000 UNIT TAB PO SCH (09:42)
--- NOTE | 2018-11-26 10:07 | P.PN ---
Subjective Progress Note Date: 11/26/18 Principal diagnosis: GI bleed Denies active bleeding no hematemesis hematochezia melena hemoglobin 8.0 the other day. History of internal hemorrhoids. Capsule endoscopy reported no evidence of active bleeding. Objective - Vital Signs Vital signs: Vital Signs Temp 98.2 F 11/26/18 08:00 Pulse 78 11/26/18 08:00 Resp 18 11/26/18 08:00 BP 110/67 11/26/18 08:00 Pulse Ox 97 11/26/18 08:00 Intake & Output 11/25/18 11/26/18 11/26/18 18:59 06:59 18:59 Intake Total 480 250 Output Total 1350 1700 300 Balance -870 -1700 -50 Weight 133.7 kg Intake: IV 10 Invasive Line 3 10 Oral 480 240 Output: Urine 1350 1700 300 Other: Voiding Method Urinal # Voids 0 0 - Exam General appearance: The patient is alert, oriented, in no acute distress. HET: Head is normocephalic and atraumatic. Pupils are equal and reactive. Oropharynx is clear without lesions. Neck: Supple without lymphadenopathy. Trachea midline. Heart: S1 S2. Regular rate and rhythm. Lungs: No crackles or wheezes are heard. Abdomen: Soft, mild tenderness to bilateral lower abdomen, nondistended with bowel sounds. No peritoneal signs. No palpable organomegaly or masses. Extremities: +2 BLE edema. Neurological: No focal deficits. Strength and sensation are grossly intact. - Labs CBC & Chem 7: 11/25/18 06:06 11/26/18 05:53 Labs: Abnormal Lab Results - Last 24 Hours (Table) 11/26/18 Range/Units 05:53 Calcium 7.6 L (8.4-10.2) mg/dL Magnesium 1.5 L (1.6-2.3) mg/dL Assessment and Plan (1) GI bleed Current Visit: Yes Status: Acute Code(s): K92.2 - GASTROINTESTINAL HEMORRHAGE, UNSPECIFIED SNOMED Code(s): 90107099 (2) Anemia due to acute blood loss Current Visit: No Status: Acute Code(s): D62 - ACUTE POSTHEMORRHAGIC ANEMIA SNOMED Code(s): 892056213 (3) History of Bibi-en-Y gastric bypass Current Visit: Yes Status: Acute Code(s): Z98.84 - BARIATRIC SURGERY STATUS SNOMED Code(s): 921639775 (4) H/O hemorrhoids Current Visit: Yes Status: Acute Code(s): Z87.19 - PERSONAL HISTORY OF OTHER DISEASES OF THE DIGESTIVE SYSTEM SNOMED Code(s): 320535091 Plan: 1. Continue present medical therapy. Okay to restart anticoagulation. Continue to monitor CBC. Light diet as tolerated. Continue GI prophylaxis. Assessment and plan a care discussed with Dr. Jimenes
[2018-11-26] MEDS: MAGNESIUM SULFATE-D5W PMX 1 GM in DEXTROSE/WATER 1 100ML.BAG IVPB SCH ×2 (10:23→11:56)
[2018-11-26 11:19] VITALS: BMI 42.3
[2018-11-26] MEDS ORDERED: APIXABAN 2.5 MG TABLET PO SCH (11:30)
[2018-11-26 13:35] LABS: Iron Saturation 15.34 (15.00-50.00)
--- NOTE | 2018-11-26 15:01 | P.PN ---
Subjective This is a pleasant 68-year-old male past medical history significant for atrial fibrillation, pulmonary embolism, right renal carcinoma status post right kidney cryoablation, chronic alcohol abuse and former nicotine dependence. He follows in the office with Dr. Mcadams. Patient is seen and examined sitting up in chair and eating breakfast. Capsule study shows no active bleeding. Oral anticoagulation ok to resume per GI. Laboratory data reviewed, sodium 138, potassium 3.6, creatinine 1.18, magnesium 1.5. Blood pressure 92/55 heart rate 71 afebrile maintaining oxygen saturation on room air. Currently maintained on lopressor 25 mg BID, lasix 40 mg IV BID and eliquis 2.5 mg BID. GENERAL: Well-appearing, well-nourished and in no acute distress. NECK: Supple without JVD or thyromegaly. LUNGS: Breath sounds clear to auscultation bilaterally. Respiration equal and unlabored. No wheezes, rales or rhonchi. Diminished bilaterally. HEART: Irregular rate and rhythm without murmurs, rubs or gallops. S1 and S2 heard. EXTREMITIES: Trace bilateral lower extremity nonpitting edema. No clubbing or cyanosis. Peripheral pulses intact. ASSESSMENT Chest pain, atypical for angina. Acute GI bleeding, resolved Hypotension Hypokalemia, resolved Hypomagnesemia, resolved Paroxysmal atrial fibrillation on long term care social worker anti-coagulation, held since admission Chronic alcohol abuse Plan Eliquis has been resumed at 2.5 mg BID, increase to home dose of 5 mg BID. Stable from a cardiac perspective. Follow up with Dr. Mcadams upon discharge. Nurse Practitioner note has been reviewed, I agree with a documented findings and plan of care. Patient was seen and examined. Objective - Vital Signs Vital signs: Vital Signs Temp 98.2 F 11/26/18 08:00 Pulse 71 11/26/18 11:31 Resp 18 11/26/18 11:31 BP 92/55 11/26/18 11:31 Pulse Ox 98 11/26/18 11:31 Intake & Output 11/25/18 11/26/18 11/26/18 18:59 06:59 18:59 Intake Total 480 610 Output Total 1350 1700 300 Balance -870 -1700 310 Weight 133.7 kg 133.7 kg Intake: IV 10 Invasive Line 3 10 Oral 480 600 Output: Urine 1350 1700 300 Other: Voiding Method Urinal # Voids 0 0 1 - Labs CBC & Chem 7: 11/25/18 06:06 11/26/18 05:53 Labs: Abnormal Lab Results - Last 24 Hours (Table) 11/26/18 11/26/18 Range/Units 05:53 05:53 Calcium 7.6 L (8.4-10.2) mg/dL Magnesium 1.5 L (1.6-2.3) mg/dL Iron 29 L (65-175) ug/dL TIBC 189 L (228-460) ug/dL
[2018-11-26] MEDS: APIXABAN 5 MG TAB PO SCH (20:16)
[2018-11-27 07:19] LABS: Magnesium 1.5 mg/dL (1.6-2.3); Potassium 3.6 mmol/L (3.5-5.1)
[2018-11-27] MEDS: ALLOPURINOL 300 MG TAB PO SCH (08:10)
[2018-11-27] MEDS: CHOLECALCIFEROL 1,000 UNIT TAB PO SCH (08:10)
[2018-11-27] MEDS: HYDROcodone/APAP 5-325MG 1 EACH TAB PO PRN ×2 (08:10→22:40)
[2018-11-27] MEDS: PANTOPRAZOLE 40 MG TABLET PO SCH ×2 (08:10→16:43)
[2018-11-27] MEDS: APIXABAN 5 MG TAB PO SCH ×2 (08:10→20:55)
[2018-11-27] MEDS: FUROSEMIDE 10 MG/ML 4 ML VIAL IV SCH ×2 (09:46→20:55)
[2018-11-27] MEDS: MULTIVITAMINS, THERA 1 EACH TAB PO SCH (12:13)
[2018-11-27] MEDS: METOPROLOL TARTRATE 25 MG TAB PO SCH ×2 (12:14→20:55)
[2018-11-27 12:24] LABS: HCT 29.2 % (39.0-53.0); Hypochromasia Marked; MCH 31.8 pg (25.0-35.0); MCHC 30.8 g/dL (31.0-37.0); MCV 103.3 fL (80.0-100.0); Macrocytosis Moderate; Mean Platelet Volume 8.6; Platelet Count 176 k/uL (150-450); RBC 2.83 m/uL (4.30-5.90); WBC 3.9 k/uL (3.8-10.6)
--- NOTE | 2018-11-27 13:39 | P.PN ---
Subjective Progress Note Date: 11/26/18 Principal diagnosis: GI bleed 68-year-old male past medical history significant for atrial fibrillation, pulmonary embolism, right renal carcinoma status post right kidney cryoablation, chronic alcohol abuse and former nicotine dependence. He follows in the office with Dr. Mcadams. We have been asked to see him in consultation secondary to GI bleeding on long-term anticoagulation. He states for the previous few days he has noted significant dizziness and lightheaded with any sort of exertion or position changes. He denies room spinning but says he just feels extremely lightheaded. he also has felt a vague tight sensation around his entire torso, not exacerbated by exertion or movement of his upper body. He denies symptoms of shortness of breath, palpitations, nausea, vomiting or diaphoresis. He states when he sitting down and not moving he is asymptomatic. He has noticed his stools have been dark over the previous weeks. He has had this in the past and undergone a scope last year and was told that he had hemorrhoids. Laboratory data reviewed, hemoglobin on admission 9.6 repeat this morning 8.3 and subsequently thereafter 8.9. Platelets 202, sodium 137, potassium on admission 2. 7 repeat this morning 3.4, creatinine 1.35, magnesnesium on admission 1. 4 repeat this morning 2.0, total bilirubin 1.8, alkaline phosphate 230, cardiac enzymes negative 1. 11/26/2018 Capsule endoscopy has been negative; GI has cleared patient to resume anticoagulation; this was discussed with patient in great detail and patient is started on Apixaban 2.5 mg twice a day \ which will be titrated to home dose of 5 mg twice a day Objective - Vital Signs Vital signs: Vital Signs Temp 98 F 11/27/18 11:37 Pulse 118 H 11/27/18 11:37 Resp 18 11/27/18 11:37 BP 100/58 11/27/18 11:37 Pulse Ox 97 11/27/18 11:37 Intake & Output 11/26/18 11/27/18 11/27/18 18:59 06:59 18:59 Intake Total 850 330 Output Total 1100 1350 1000 Balance -250 -1350 -670 Weight 133.7 kg 132.5 kg Intake: IV 10 100 Invasive Line 3 10 normal saline 100 Oral 840 230 Output: Urine 1100 1350 1000 Other: Voiding Method Urinal # Voids 1 1 - Exam - Constitutional General appearance: Present: average body habitus, cooperative, no acute distress - Neck Neck: Present: normal ROM. Absent: lymphadenopathy, rigidity, thyromegaly Carotids: negative: bruit present Thyroid: bilateral: normal size, negative: enlarged, nodule - Respiratory Respiratory: bilateral: CTA, negative: rales, rhonchi, wheezing - Cardiovascular Rhythm: regular Heart sounds: normal: S1, S2 Abnormal Heart Sounds: Absent: systolic murmur, diastolic murmur - Gastrointestinal General gastrointestinal: Present: normal bowel sounds, soft. Absent: distended, organomegaly, tenderness - Labs CBC & Chem 7: 11/27/18 12:08 11/27/18 06:22 Labs: Abnormal Lab Results - Last 24 Hours (Table) 11/26/18 11/27/18 11/27/18 Range/Units 05:53 06:22 12:08 RBC 2.83 L (4.30-5.90) m/uL Hgb 9.0 L (13.0-17.5) gm/dL Hct 29.2 L (39.0-53.0) % MCV 103.3 H (80.0-100.0) fL MCHC 30.8 L (31.0-37.0) g/dL RDW 16.0 H (11.5-15.5) % Magnesium 1.5 L (1.6-2.3) mg/dL Iron 29 L (65-175) ug/dL TIBC 189 L (228-460) ug/dL Assessment and Plan Assessment: Chest pain, atypical for angina. Acute GI bleeding, eliquis held Hypotension Hypokalemia Hypomagnesemia Paroxysmal atrial fibrillation on nursing home anti-coagulation, held since admission Chronic alcohol abuse Eliquis has been resumed per GI recommendations since The Endoscopy Is Negative; patient has been cleared from cardiac standpoint if tolerates anticoagulation with recommendation to follow-up with Dr. Petersen upon discharge Time with Patient: Greater than 30
--- NOTE | 2018-11-27 13:47 | P.DS ---
Providers Date of admission: 11/20/18 15:21 Expected date of discharge: 11/27/18 Attending physician: Perez Sr MD Consults: 11/20/18 15:21 Consult Physician Urgent Consulting Provider: Adriane Consult Reason/Comments: GI bleed Do you want consulting provider notified?: Yes 11/20/18 17:57 Consult Physician Routine Consulting Provider: Víctor Gil Consult Reason/Comments: on eliquis for afib- possible gi bleed Do you want consulting provider notified?: Yes 11/23/18 13:39 Consult Physician Routine Consulting Provider: Maykel Riley Consult Reason/Comments: IPR Do you want consulting provider notified?: Yes Primary care physician: [facility] Hospital Course: 68-year-old male past medical history significant for atrial fibrillation, pulmonary embolism, right renal carcinoma status post right kidney cryoablation, chronic alcohol abuse and former nicotine dependence. He follows in the office with Dr. Mcadams. We have been asked to see him in consultation secondary to GI bleeding on long-term anticoagulation. He states for the previous few days he has noted significant dizziness and lightheaded with any sort of exertion or position changes. He denies room spinning but says he just feels extremely lightheaded. he also has felt a vague tight sensation around his entire torso, not exacerbated by exertion or movement of his upper body. He denies symptoms of shortness of breath, palpitations, nausea, vomiting or diaphoresis. He states when he sitting down and not moving he is asymptomatic. He has noticed his stools have been dark over the previous weeks. He has had this in the past and undergone a scope last year and was told that he had hemorrhoids. Laboratory data reviewed, hemoglobin on admission 9.6 repeat this morning 8.3 and subsequently thereafter 8.9. Platelets 202, sodium 137, potassium on admission 2. 7 repeat this morning 3.4, creatinine 1.35, magnesnesium on admission 1. 4 repeat this morning 2.0, total bilirubin 1.8, alkaline phosphate 230, cardiac enzymes negative 1. 11/22/2018 Patient was seen and examined this morning, overall feeling well. Currently undergoing capsule endoscopy study. EGD and colonoscopy were mentioned in April 2016. 11/23/2018 Patient seen and examined this morning, denies any black stool or blood in his stool, overall feeling well. No results yet on the capsule endoscopy. 11/24/2018 Patient was seen and examined today, no results yet from GI service. Once we get their recommendations, patient will need to be reinitiated on anticoagulation if okay with them. 11/25/2018 Patient seen and examined this morning, and plating that he has some more swelling in his bilateral lower extremities today. Still have no recommendations from GI service regarding resuming anticoagulation. Blood cell count 2.6, hemoglobin 8.0, platelet count 167. Odium 138, potassium 3.2, BUN 16 and creatinine 0.8 today. Patient has been initiated on IV Lasix today by primary. Capsule endoscopy came back negative and patient was cleared to restart anticoagulation therapy; patient did tolerate anticoagulation without any complications; he is to be discharged home to follow-up with cardiology and GI as an outpatient Plan - Discharge Summary New Discharge Prescriptions: New Apixaban [Eliquis] 5 mg PO BID tab Continue Allopurinol [Zyloprim] 300 mg PO DAILY Cholecalciferol [Vitamin D3] 5,000 unit PO DAILY Metoprolol Tartrate [Lopressor] 25 mg PO BID Multivitamin [Men's Multi-Vitamin] 1 tab PO DAILY #30 Apixaban [Eliquis] 5 mg PO BID #0 Pantoprazole Sodium [Protonix] 40 mg PO BID #60 tablet.dr Discharge Medication List Allopurinol [Zyloprim] 300 mg PO DAILY 02/22/14 [History] Cholecalciferol [Vitamin D3] 5,000 unit PO DAILY 07/26/14 [History] Metoprolol Tartrate [Lopressor] 25 mg PO BID 06/28/17 [History] Multivitamin [Men's Multi-Vitamin] 1 tab PO DAILY #30 07/01/17 [Rx] Apixaban [Eliquis] 5 mg PO BID #0 06/28/18 [Rx] Pantoprazole Sodium [Protonix] 40 mg PO BID #60 tablet. 06/28/18 [Rx] Apixaban [Eliquis] 5 mg PO BID tab 11/27/18 [Rx] Follow up Appointment(s)/Referral(s): [facility] [Provider Group] - 1 Week Rebekah Hood DO [Primary Care Provider] - 1 Week () Henrique Jimenes MD [STAFF PHYSICIAN] - 12/10/18 10:30 am Patient Instructions/Handouts: Gastrointestinal Bleeding (DC), Anemia (DC) Activity/Diet/Wound Care/Special Instructions: [facility] vs [facility]CF
--- NOTE | 2018-11-27 19:03 | P.PN ---
Subjective Progress Note Date: 11/27/18 This 68-year-old gentleman was admitted with a GI bleeding. Patient has chronic atrial fibrillation. No definite source of GI bleeding is noted. Patient is back on anti-cognition therapy. Hemoglobin is maintained. His heart rate is controlled. After giving beta kary this morning. Patient's edema is clearing overall patient seemed to be stable. Patient could be discharged home. Follow-up as an outpatient Objective - Vital Signs Vital signs: Vital Signs Temp 99 F 11/27/18 16:00 Pulse 85 11/27/18 16:00 Resp 18 11/27/18 16:00 BP 106/58 11/27/18 16:00 Pulse Ox 97 11/27/18 16:00 Intake & Output 11/27/18 11/27/18 11/28/18 06:59 18:59 07:59 Intake Total 330 Output Total 1350 1000 Balance -1350 -670 Weight 132.5 kg Intake: IV 100 normal saline 100 Oral 230 Output: Urine 1350 1000 Other: Voiding Method Urinal # Voids 1 - Exam GENERAL EXAM: Patient is alert and oriented and doesn't appear to be in any acute distress HEENT: Normocephalic. Normal reaction of pupils, equal size, normal range of extraocular motion. No erythema or exudates in the throat. NECK: No masses, no nuchal rigidity. CHEST: No chest wall deformity. LUNGS: Equal air entry with no crackles or wheeze. HEART: S1 and S2 normal with no audible mumurs or gallops. Irregular heart sounds ABDOMEN: No hepatosplenomegaly, normal bowel sounds, no guarding or rigidity. SKIN: No rashes CENTRAL NERVOUS SYSTEM: No focal deficits. EXTREMITIES: Resolving edema - Labs CBC & Chem 7: 11/27/18 12:08 11/27/18 06:22 Labs: Abnormal Lab Results - Last 24 Hours (Table) 11/27/18 11/27/18 Range/Units 06:22 12:08 RBC 2.83 L (4.30-5.90) m/uL Hgb 9.0 L (13.0-17.5) gm/dL Hct 29.2 L (39.0-53.0) % MCV 103.3 H (80.0-100.0) fL MCHC 30.8 L (31.0-37.0) g/dL RDW 16.0 H (11.5-15.5) % Magnesium 1.5 L (1.6-2.3) mg/dL Assessment and Plan (1) Chronic atrial fibrillation Current Visit: Yes Status: Acute Code(s): I48.2 - CHRONIC ATRIAL FIBRILLATION SNOMED Code(s): 812482588 (2) GI bleed Current Visit: Yes Status: Acute Code(s): K92.2 - GASTROINTESTINAL HEMORRHAGE, UNSPECIFIED SNOMED Code(s): 85810687 Plan: Patient is clinically stable. Continue current medical therapy. Possible discharge home. Follow-up in the office
[2018-11-27] MEDS: HYDROCORTISONE SUPPOSITORY 25 MG SUPP RECTAL SCH (22:47)
[2018-11-28] MEDS: MAGNESIUM SULFATE-D5W PMX 1 GM in DEXTROSE/WATER 1 100ML.BAG IVPB SCH ×4 (01:47→12:23)
[2018-11-28] MEDS ORDERED: Potassium Replacement Protocol 1 EACH MISC MISCELLANE PRN (05:15)
[2018-11-28] MEDS ORDERED: POTASSIUM CHLORIDE ER 20 MEQ TAB.ER PO SCH (06:00)
[2018-11-28] MEDS ORDERED: Magnesium Replacement Protocol 1 EACH MISC MISCELLANE PRN (09:54)
[2018-11-28] MEDS: FUROSEMIDE 10 MG/ML 4 ML VIAL IV SCH ×2 (10:01→21:11)
[2018-11-28] MEDS: CHOLECALCIFEROL 1,000 UNIT TAB PO SCH (10:02)
[2018-11-28] MEDS: APIXABAN 5 MG TAB PO SCH ×2 (10:02→21:11)
[2018-11-28] MEDS: METOPROLOL TARTRATE 25 MG TAB PO SCH ×2 (10:02→21:12)
[2018-11-28] MEDS: ALLOPURINOL 300 MG TAB PO SCH (10:02)
[2018-11-28] MEDS: PANTOPRAZOLE 40 MG TABLET PO SCH ×2 (10:05→16:48)
[2018-11-28 12:12] LABS: Calcium 7.7 mg/dL (8.4-10.2)
[2018-11-28] MEDS: MULTIVITAMINS, THERA 1 EACH TAB PO SCH (12:24)
[2018-11-28] MEDS: HYDROcodone/APAP 5-325MG 1 EACH TAB PO PRN ×2 (12:28→23:35)
--- NOTE | 2018-11-28 12:51 | P.PN ---
Subjective Progress Note Date: 11/27/18 Principal diagnosis: GI bleed 68-year-old male past medical history significant for atrial fibrillation, pulmonary embolism, right renal carcinoma status post right kidney cryoablation, chronic alcohol abuse and former nicotine dependence. He follows in the office with Dr. Mcadams. We have been asked to see him in consultation secondary to GI bleeding on long-term anticoagulation. He states for the previous few days he has noted significant dizziness and lightheaded with any sort of exertion or position changes. He denies room spinning but says he just feels extremely lightheaded. he also has felt a vague tight sensation around his entire torso, not exacerbated by exertion or movement of his upper body. He denies symptoms of shortness of breath, palpitations, nausea, vomiting or diaphoresis. He states when he sitting down and not moving he is asymptomatic. He has noticed his stools have been dark over the previous weeks. He has had this in the past and undergone a scope last year and was told that he had hemorrhoids. Laboratory data reviewed, hemoglobin on admission 9.6 repeat this morning 8.3 and subsequently thereafter 8.9. Platelets 202, sodium 137, potassium on admission 2. 7 repeat this morning 3.4, creatinine 1.35, magnesnesium on admission 1. 4 repeat this morning 2.0, total bilirubin 1.8, alkaline phosphate 230, cardiac enzymes negative 1. 11/26/2018 Capsule endoscopy has been negative; GI has cleared patient to resume anticoagulation; this was discussed with patient in great detail and patient is started on Apixaban 2.5 mg twice a day \ which will be titrated to home dose of 5 mg twice a day 11/27/2018 Patient is back on anti-cognition therapy. Hemoglobin is maintained. His heart rate is controlled. Patient's edema is clearing overall patient seemed to be stable. Patient could be discharged home from cardiology standpoint and follow-up as an outpatient. Patient has been evaluated by therapy and is recommended skilled rehab; we will hold patient's discharge today; case management is on board and patient might not be placed for another 48-72 hours; we will discharge once arrangements are made Objective - Vital Signs Vital signs: Vital Signs Temp 98 F 11/27/18 11:37 Pulse 118 H 11/27/18 11:37 Resp 18 11/27/18 11:37 BP 100/58 11/27/18 11:37 Pulse Ox 97 11/27/18 11:37 Intake & Output 11/26/18 11/27/18 11/27/18 18:59 06:59 18:59 Intake Total 850 330 Output Total 1100 1350 1000 Balance -250 -1350 -670 Weight 133.7 kg 132.5 kg Intake: IV 10 100 Invasive Line 3 10 normal saline 100 Oral 840 230 Output: Urine 1100 1350 1000 Other: Voiding Method Urinal # Voids 1 1 - Exam - Constitutional General appearance: Present: average body habitus, cooperative, no acute d istress - Neck Neck: Present: normal ROM. Absent: lymphadenopathy, rigidity, thyromegaly Carotids: negative: bruit present Thyroid: bilateral: normal size, negative: enlarged, nodule - Respiratory Respiratory: bilateral: CTA, negative: rales, rhonchi, wheezing - Cardiovascular Rhythm: regular Heart sounds: normal: S1, S2 Abnormal Heart Sounds: Absent: systolic murmur, diastolic murmur - Gastrointestinal General gastrointestinal: Present: normal bowel sounds, soft. Absent: distended, organomegaly, tenderness - Labs CBC & Chem 7: 11/27/18 12:08 11/28/18 11:35 Labs: Abnormal Lab Results - Last 24 Hours (Table) 11/27/18 11/27/18 Range/Units 06:22 12:08 RBC 2.83 L (4.30-5.90) m/uL Hgb 9.0 L (13.0-17.5) gm/dL Hct 29.2 L (39.0-53.0) % MCV 103.3 H (80.0-100.0) fL MCHC 30.8 L (31.0-37.0) g/dL RDW 16.0 H (11.5-15.5) % Magnesium 1.5 L (1.6-2.3) mg/dL Assessment and Plan Assessment: Chest pain, atypical for angina. Acute GI bleeding, eliquis held Hypotension Hypokalemia Hypomagnesemia Paroxysmal atrial fibrillation on prison anti-coagulation, held since admission Chronic alcohol abuse Eliquis has been resumed per GI recommendations since The Endoscopy Is Negative; patient has been cleared from cardiac standpoint if tolerates anticoagulation with recommendation to follow-up with Dr. Petersen upon discharge Time with Patient: Greater than 30
[2018-11-28] MEDS: HYDROCORTISONE SUPPOSITORY 25 MG SUPP RECTAL SCH (21:12)
[2018-11-29] MEDS: PANTOPRAZOLE 40 MG TABLET PO SCH (06:23)
[2018-11-29 06:24] VITALS: RESP 16
[2018-11-29] MEDS: CHOLECALCIFEROL 1,000 UNIT TAB PO SCH (08:46)
[2018-11-29] MEDS: METOPROLOL TARTRATE 25 MG TAB PO SCH (08:47)
[2018-11-29] MEDS: MULTIVITAMINS, THERA 1 EACH TAB PO SCH (08:47)
[2018-11-29] MEDS: APIXABAN 5 MG TAB PO SCH (08:48)
[2018-11-29] MEDS: ALLOPURINOL 300 MG TAB PO SCH (08:48)
[2018-11-29] MEDS: FUROSEMIDE 10 MG/ML 4 ML VIAL IV SCH (08:48)
--- NOTE | 2018-11-29 09:15 | P.PN ---
Subjective Progress Note Date: 11/28/18 Principal diagnosis: GI bleed 68-year-old male past medical history significant for atrial fibrillation, pulmonary embolism, right renal carcinoma status post right kidney cryoablation, chronic alcohol abuse and former nicotine dependence. He follows in the office with Dr. Mcadams. We have been asked to see him in consultation secondary to GI bleeding on long-term anticoagulation. He states for the previous few days he has noted significant dizziness and lightheaded with any sort of exertion or position changes. He denies room spinning but says he just feels extremely lightheaded. he also has felt a vague tight sensation around his entire torso, not exacerbated by exertion or movement of his upper body. He denies symptoms of shortness of breath, palpitations, nausea, vomiting or diaphoresis. He states when he sitting down and not moving he is asymptomatic. He has noticed his stools have been dark over the previous weeks. He has had this in the past and undergone a scope last year and was told that he had hemorrhoids. Laboratory data reviewed, hemoglobin on admission 9.6 repeat this morning 8.3 and subsequently thereafter 8.9. Platelets 202, sodium 137, potassium on admission 2. 7 repeat this morning 3.4, creatinine 1.35, magnesnesium on admission 1. 4 repeat this morning 2.0, total bilirubin 1.8, alkaline phosphate 230, cardiac enzymes negative 1. 11/26/2018 Capsule endoscopy has been negative; GI has cleared patient to resume anticoagulation; this was discussed with patient in great detail and patient is started on Apixaban 2.5 mg twice a day \ which will be titrated to home dose of 5 mg twice a day 11/27/2018 Patient is back on anti-cognition therapy. Hemoglobin is maintained. His heart rate is controlled. Patient's edema is clearing overall patient seemed to be stable. Patient could be discharged home from cardiology standpoint and follow-up as an outpatient. Patient has been evaluated by therapy and is recommended skilled rehab; we will hold patient's discharge today; case management is on board and patient might not be placed for another 48-72 hours; we will discharge once arrangements are made 11/28/2018 Patient is seen and evaluated in the room for follow-up at bedside; patient has no specific complaints at this time Vital signs are reviewed showing a temperature of 98.1, pulse 68, respirations 16 and blood pressure of 95/53; SpO2 of 96% on room air Labs are stable with a sodium of 137, potassium 4.0, BUN/creatinine of 25/1.04; magnesium is stable at 1.7 We will continue to monitor CBC since patient is back on anticoagulation therapy with Apixaban at a dose of 5 mg twice a day Possible discharge in next 24-48 hours to skilled rehab once arrangements are made; case management/[employer] on board Objective - Vital Signs Vital signs: Vital Signs Temp 98.1 F 11/28/18 11:26 Pulse 68 11/28/18 11:26 Resp 18 11/28/18 11:26 BP 95/53 11/28/18 11:26 Pulse Ox 96 11/28/18 11:26 Intake & Output 11/27/18 11/28/18 11/28/18 17:59 06:59 18:59 Intake Total 180 Output Total Balance 180 Weight Intake: IV normal saline Oral 180 Output: Urine Other: Voiding Method Urinal # Voids # Bowel Movements - Exam - Constitutional General appearance: Present: average body habitus, cooperative, no acute distress - Neck Neck: Present: normal ROM. Absent: lymphadenopathy, rigidity, thyromegaly Carotids: negative: bruit present Thyroid: bilateral: normal size, negative: enlarged, nodule - Respiratory Respiratory: bilateral: CTA, negative: rales, rhonchi, wheezing - Cardiovascular Rhythm: regular Heart sounds: normal: S1, S2 Abnormal Heart Sounds: Absent: systolic murmur, diastolic murmur - Gastrointestinal General gastrointestinal: Present: normal bowel sounds, soft. Absent: distended, organomegaly, tenderness - Labs CBC & Chem 7: 11/27/18 12:08 11/28/18 11:35 Labs: Abnormal Lab Results - Last 24 Hours (Table) 11/27/18 11/28/18 Range/Units 12:08 11:35 RBC 2.83 L (4.30-5.90) m/uL Hgb 9.0 L (13.0-17.5) gm/dL Hct 29.2 L (39.0-53.0) % MCV 103.3 H (80.0-100.0) fL MCHC 30.8 L (31.0-37.0) g/dL RDW 16.0 H (11.5-15.5) % Chloride 108 H (98-107) mmol/L BUN 25 H (9-20) mg/dL Calcium 7.7 L (8.4-10.2) mg/dL Assessment and Plan Assessment: Chest pain, atypical for angina. Acute GI bleeding, eliquis held Hypotension Hypokalemia Hypomagnesemia Paroxysmal atrial fibrillation on extermination inspector anti-coagulation, held since admission Chronic alcohol abuse Eliquis has been resumed per GI recommendations since The Endoscopy Is Negative; patient has been cleared from cardiac standpoint if tolerates anticoagulation with recommendation to follow-up with Dr. Petersen upon discharge Time with Patient: Greater than 30
[2018-11-29 11:10] LABS: Potassium 4.1 mmol/L (3.5-5.1)
[2018-11-29 11:11] LABS: Anisocytosis Slight; Basophils % (A) 1 %; Eosinophils # (A) 0.1 k/uL (0-0.7); Eosinophils % (A) 2 %; HCT 28.8 % (39.0-53.0); Hypochromasia Moderate; Lymphocytes # (A) 1.1 k/uL (1.0-4.8); Lymphocytes % (A) 28 %; MCH 32.3 pg (25.0-35.0); MCHC 31.2 g/dL (31.0-37.0); MCV 103.4 fL (80.0-100.0); Macrocytosis Moderate; Mean Platelet Volume 8.1; Monocytes # (A) 0.3 k/uL (0-1.0); Monocytes % (A) 8 %; Neutrophils # (A) 2.2 k/uL (1.3-7.7); Neutrophils % (A) 57 %; Platelet Count 266 k/uL (150-450); RBC 2.78 m/uL (4.30-5.90); RDW 16.1 % (11.5-15.5); WBC 3.9 k/uL (3.8-10.6)
[2018-11-29 11:15] VITALS: TEMP 97.7
--- NOTE | 2018-11-29 15:02 | P.DS ---
Providers Date of admission: 11/20/18 15:21 Expected date of discharge: 11/29/18 Attending physician: Perez Sr MD Consults: 11/20/18 15:21 Consult Physician Urgent Consulting Provider: Adriane Consult Reason/Comments: GI bleed Do you want consulting provider notified?: Yes 11/20/18 17:57 Consult Physician Routine Consulting Provider: Víctor Gil Consult Reason/Comments: on eliquis for afib- possible gi bleed Do you want consulting provider notified?: Yes 11/23/18 13:39 Consult Physician Routine Consulting Provider: Maykel Riley Consult Reason/Comments: IPR Do you want consulting provider notified?: Yes Primary care physician: Rebekah Hood Hospital Course: Discharge diagnosis. Chest pain, atypical for angina. Ruled out ACS. Acute GI bleeding, status post EGD negative. Restarted on anticoagulation. Hemoglobin is stable at 9.0. Hypotension. Resolved. Hypokalemia Replaced.. Hypomagnesemia. . Replaced Paroxysmal atrial fibrillation on prison anti-coagulation Chronic alcohol abuse. Chronic lower extremities edema. Improving with Lasix. Morbid obesity BMI 41.0 Hospital course 68-year-old male past medical history significant for atrial fibrillation, pulmonary embolism, right renal carcinoma status post right kidney cryoablation, chronic alcohol abuse and former nicotine dependence. He follows in the office with Dr. Mcadams. We have been asked to see him in consultation secondary to GI bleeding on long-term anticoagulation. He states for the previous few days he has noted significant dizziness and lightheaded with any sort of exertion or position changes. He denies room spinning but says he just feels extremely lightheaded. he also has felt a vague tight sensation around his entire torso, not exacerbated by exertion or movement of his upper body. He denies symptoms of shortness of breath, palpitations, nausea, vomiting or diaphoresis. He states when he sitting down and not moving he is asymptomatic. He has noticed his stools have been dark over the previous weeks. He has had this in the past and undergone a scope last year and was told that he had hemorrhoids. Laboratory data reviewed, hemoglobin on admission 9.6 repeat this morning 8.3 and subsequently thereafter 8.9. Platelets 202, sodium 137, potassium on admission 2. 7 repeat this morning 3.4, creatinine 1.35, magnesnesium on admission 1. 4 repeat this morning 2.0, total bilirubin 1.8, alkaline phosphate 230, cardiac enzymes negative 1. 11/26/2018 Capsule endoscopy has been negative; GI has cleared patient to resume anticoagulation; this was discussed with patient in great detail and patient is started on Apixaban 2.5 mg twice a day \ which will be titrated to home dose of 5 mg twice a day 11/27/2018 Patient is back on anti-cognition therapy. Hemoglobin is maintained. His heart rate is controlled. Patient's edema is clearing overall patient seemed to be stable. Patient could be discharged home from cardiology standpoint and follow-up as an outpatient. Patient has been evaluated by therapy and is recommended skilled rehab; we will hold patient's discharge today; case management is on board and patient might not be placed for another 48-72 hours; we will discharge once arrangements are made 11/28/2018 Patient is seen and evaluated in the room for follow-up at bedside; patient has no specific complaints at this time Vital signs are reviewed showing a temperature of 98.1, pulse 68, respirations 16 and blood pressure of 95/53; SpO2 of 96% on room air Labs are stable with a sodium of 137, potassium 4.0, BUN/creatinine of 25/1.04; magnesium at 1.7 11/29/2018 Patient denied any complaints of chest pain or shortness breath. No nausea vomiting or abdominal pain. No diarrhea. denied any blood clots in the stool. Patient had colonoscopy about 8 months ago. Patient's hemoglobin level is stable today 9.0. Continue with Eliquis. Eliquis has been resumed per GI recommendations since The Endoscopy Is Negative; patient has been cleared from cardiac standpoint if tolerates anticoagulation with recommendation to follow-up with Dr. Petersen upon discharge. Patient is being transferred to extended care facility. Patient also will be continued on oral Lasix. Physical examination GENERAL EXAM: Patient is alert and oriented and doesn't appear to be in any acute distress HEENT: Normocephalic. Normal reaction of pupils, equal size, normal range of extraocular motion. No erythema or exudates in the throat. NECK: No masses, no nuchal rigidity. CHEST: No chest wall deformity. LUNGS: Equal air entry with no crackles or wheeze. HEART: S1 and S2 normal with no audible mumurs or gallops. Irregular heart sounds ABDOMEN: No hepatosplenomegaly, normal bowel sounds, no guarding or rigidity. SKIN: No rashes CENTRAL NERVOUS SYSTEM: No focal deficits. EXTREMITIES: 1+ edema. No clubbing or cyanosis. Vital Signs 11/29/18 11/29/18 07:56 08:30 Temperature 97.7 F Pulse Rate [ 72 Pulse Oximetery ] Respiratory 16 Rate Blood Pressure 89/51 [Left Arm] O2 Sat by Pulse 96 96 Oximetry Total time taken greater than 35 minutes including 18 minutes for counseling and coordination of care. Patient Condition at Discharge: Poor Plan - Discharge Summary New Discharge Prescriptions: New Apixaban [Eliquis] 5 mg PO BID tab Potassium Chloride [K-Tab ER] 10 meq PO DAILY #14 tablet.er Furosemide [Lasix] 40 mg PO DAILY 14 Days #14 tablet Magnesium Oxide [Mag-Ox] 400 mg PO DAILY 7 Days #7 tablet Continue Allopurinol [Zyloprim] 300 mg PO DAILY Cholecalciferol [Vitamin D3] 5,000 unit PO DAILY Metoprolol Tartrate [Lopressor] 25 mg PO BID Multivitamin [Men's Multi-Vitamin] 1 tab PO DAILY #30 Apixaban [Eliquis] 5 mg PO BID #0 Pantoprazole Sodium [Protonix] 40 mg PO BID #60 tablet.dr Discharge Medication List Allopurinol [Zyloprim] 300 mg PO DAILY 02/22/14 [History] Cholecalciferol [Vitamin D3] 5,000 unit PO DAILY 07/26/14 [History] Metoprolol Tartrate [Lopressor] 25 mg PO BID 06/28/17 [History] Multivitamin [Men's Multi-Vitamin] 1 tab PO DAILY #30 07/01/17 [Rx] Apixaban [Eliquis] 5 mg PO BID #0 06/28/18 [Rx] Pantoprazole Sodium [Protonix] 40 mg PO BID #60 tablet. 06/28/18 [Rx] Apixaban [Eliquis] 5 mg PO BID tab 11/27/18 [Rx] Furosemide [Lasix] 40 mg PO DAILY 14 Days #14 tablet 11/29/18 [Rx] Magnesium Oxide [Mag-Ox] 400 mg PO DAILY 7 Days #7 tablet 11/29/18 [Rx] Potassium Chloride [K-Tab ER] 10 meq PO DAILY #14 tablet.er 11/29/18 [Rx] Follow up Appointment(s)/Referral(s): [facility] [Provider Group] - 1 Week Rebekah Hood DO [Primary Care Provider] - 1 Week () Henrique Jimenes MD [STAFF PHYSICIAN] - 12/10/18 10:30 am Patient Instructions/Handouts: Gastrointestinal Bleeding (DC), Anemia (DC) Activity/Diet/Wound Care/Special Instructions: [facility] vs ECF Discharge Disposition: TRANSFER TO SNF/ECF
--- NOTE | 2018-11-29 15:27 | P.PN ---
Subjective Progress Note Date: 11/29/18 This is a pleasant 68-year-old male past medical history significant for atrial fibrillation, pulmonary embolism, right renal carcinoma status post right kidney cryoablation, chronic alcohol abuse and former nicotine dependence. He follows in the office with Dr. Mcadams. We have been asked to see him in consultation secondary to GI bleeding on long-term anticoagulation. He states for the previous few days he has noted significant dizziness and lightheaded with any sort of exertion or position changes. He denies room spinning but says he just feels extremely lightheaded. he also has felt a vague tight sensation around his entire torso, not exacerbated by exertion or movement of his upper body. He denies symptoms of shortness of breath, palpitations, nausea, vomiting or diaphoresis. He states when he sitting down and not moving he is asymptomatic. He has noticed his stools have been dark over the previous weeks. He has had this in the past and undergone a scope last year and was told that he had hemorrhoids. Laboratory data reviewed, hemoglobin on admission 9.6 repeat this morning 8.3 and subsequently thereafter 8.9. Platelets 202, sodium 137, potassium on admission 2. 7 repeat this morning 3.4, creatinine 1.35, magnesnesium on admission 1. 4 repeat this morning 2.0, total bilirubin 1.8, alkaline phosphate 230, cardiac enzymes negative 1. 11/22/2018 Patient was seen and examined this morning, overall feeling well. Currently undergoing capsule endoscopy study. EGD and colonoscopy were mentioned in April 2016. 11/23/2018 Patient seen and examined this morning, denies any black stool or blood in his stool, overall feeling well. No results yet on the capsule endoscopy. 11/24/2018 Patient was seen and examined today, no results yet from GI service. Once we get their recommendations, patient will need to be reinitiated on anticoagulation if okay with them. 11/25/2018 Patient seen and examined this morning, and plating that he has some more swelling in his bilateral lower extremities today. Still have no recommendations from GI service regarding resuming anticoagulation. Blood cell count 2.6, hemoglobin 8.0, platelet count 167. Odium 138, potassium 3.2, BUN 16 and creatinine 0.8 today. Patient has been initiated on IV Lasix today by primary. 11/29/2018 Patient seen and examined today, back on anticoagulation. Hoping to be approved to go to rehab. Objective - Vital Signs Vital signs: Vital Signs Temp 97.7 F 11/29/18 08:30 Pulse 72 11/29/18 08:30 Resp 16 11/29/18 08:30 BP 89/51 11/29/18 08:30 Pulse Ox 96 11/29/18 08:30 Intake & Output 11/28/18 11/29/18 11/29/18 18:59 06:59 18:59 Intake Total 660 360 Output Total 800 Balance -140 360 Weight 129.7 kg Intake: Oral 660 360 Output: Urine 800 Other: Voiding Method Urinal Urinal Urinal # Voids 2 2 - Exam GENERAL: This is a 68-year-old male in no apparent distress at the time of my examination. Flat affect. Obese. HEENT: Head is atraumatic, normocephalic. Pupils are equal, round. Sclerae anicteric. Conjunctivae are clear. Mucous membranes of the mouth are moist. Neck is supple. There is no jugular venous distention. No carotid bruit is heard. LUNGS: Clear to auscultation no wheezes, rales or rhonchi. No chest wall tenderness is noted on palpation or with deep breathing. Diminished bilaterally. HEART: Irregular rate and rhythm without murmurs, rubs or gallops. S1 and S2 heard. ABDOMEN: Soft, nontender. Bowel sounds are heard. No organomegaly noted. EXTREMITIES: Trace to 1+ evidence of peripheral edema and no calf tenderness noted. VASCULAR: Radial and dorsalis pedis pulses palpated, no evidence of clubbing. NEUROLOGIC: Patient is awake, alert and oriented x3. - Labs CBC & Chem 7: 11/29/18 09:31 11/29/18 09:31 Labs: Abnormal Lab Results - Last 24 Hours (Table) 11/29/18 11/29/18 Range/Units 09:31 09:31 RBC 2.78 L (4.30-5.90) m/uL Hgb 9.0 L (13.0-17.5) gm/dL Hct 28.8 L (39.0-53.0) % MCV 103.4 H (80.0-100.0) fL RDW 16.1 H (11.5-15.5) % BUN 27 H (9-20) mg/dL Calcium 8.0 L (8.4-10.2) mg/dL Assessment and Plan Plan: ASSESSMENT Chest pain, atypical for angina. Acute GI bleeding, eliquis held Hypotension Hypokalemia Hypomagnesemia Paroxysmal atrial fibrillation on penitentiary anti-coagulation, held since admission Chronic alcohol abuse Plan Cardiology's perspective, we'll recommend to continue current medications including the anticoagulation. Discharge to rehab once cleared by primary. DNP note has been reviewed, I agree with a documented findings and plan of care. Patient was seen and examined.
[2018-11-29 16:46] VITALS: BP 103/67; PULSE 71
== END 2018-11-29 16:14 | DRG 394 ==
LOC: EC 12:56 → 3SCARD 15:21
PROVIDERS: ADMIT Internal Medicine; ATTEND Internal Medicine
PROC: 0DJ07ZZ Inspection of Upper Intestinal Tract, Via Natural or Artificial Opening (ICD-10-PCS; principal; 2018-11-22 08:30)
DX: K64.8 Other hemorrhoids (principal); D62 Acute posthemorrhagic anemia; J90 Pleural effusion, not elsewhere classified; K86.1 Other chronic pancreatitis; N17.9 Acute kidney failure, unspecified; Z68.41 Body mass index [BMI] 40.0-44.9, adult; I95.9 Hypotension, unspecified; I48.0 Paroxysmal atrial fibrillation; E66.01 Morbid (severe) obesity due to excess calories; E83.42 Hypomagnesemia; E83.51 Hypocalcemia; E87.70 Fluid overload, unspecified; K76.0 Fatty (change of) liver, not elsewhere classified; R07.89 Other chest pain; E78.00 Pure hypercholesterolemia, unspecified; E87.6 Hypokalemia; F10.10 Alcohol abuse, uncomplicated; I10 Essential (primary) hypertension; K57.30 Diverticulosis of large intestine without perforation or abscess without bleeding; M15.9 Polyosteoarthritis, unspecified; N20.0 Calculus of kidney; N40.0 Benign prostatic hyperplasia without lower urinary tract symptoms; Z79.01 Long term (current) use of anticoagulants; Z79.899 Other long term (current) drug therapy; Z85.528 Personal history of other malignant neoplasm of kidney; Z86.711 Personal history of pulmonary embolism; Z86.010 Personal history of colon polyps; Z87.891 Personal history of nicotine dependence; Z90.49 Acquired absence of other specified parts of digestive tract; Z96.652 Presence of left artificial knee joint; Z98.84 Bariatric surgery status; Z82.49 Family history of ischemic heart disease and other diseases of the circulatory system; Z82.5 Family history of asthma and other chronic lower respiratory diseases; Z80.41 Family history of malignant neoplasm of ovary; Z80.3 Family history of malignant neoplasm of breast
CPT/HCPCS: 36415; 74176; 80048; 80053; 80076; 82728; 83540; 83550; 83735; 83880; 84132; 84484; 85025; 85027; 85610; 85730; 86850; 86900; 86901; 91110; 93005; 94760; 96365; 96368; 96375; 99285

== ENCOUNTER 2018-12-22 05:06 | Emergency (ER) | payer MEDICARE, OTHER ==
[2018-12-22] MEDS ORDERED: MORPHINE SULFATE 4 MG/ML SYRINGE IV STA (05:22)
--- NOTE | 2018-12-22 05:32 | ED ---
Fall HPI - General Chief Complaint: Fall Stated Complaint: Fall Time Seen by Provider: 12/22/18 05:15 Source: EMS Mode of arrival: EMS - History of Present Illness MD Complaint: fall Onset/Timin -: hour(s) Fall From: standing Fall Witnessed: no Place Fall Occurred: home Loss of Consciousness: none Prolonged Down Time?: yes, hour(s) (8) Symptoms Prior to Fall: none Location: head, chest Severity: moderate Quality: aching Context: tripped/slipped, history of frequent falls Associated Symptoms: headache - Related Data Home Medications Medication Instructions Recorded Confirmed Allopurinol [Zyloprim] 300 mg PO DAILY 02/22/14 12/22/18 Cholecalciferol [Vitamin D3] 5,000 unit PO DAILY 07/26/14 12/22/18 Metoprolol Tartrate [Lopressor] 25 mg PO BID 06/28/17 12/22/18 Previous Rx's Medication Instructions Recorded Multivitamin [Men's Multi-Vitamin] 1 tab PO DAILY #30 07/01/17 Apixaban [Eliquis] 5 mg PO BID #0 06/28/18 Pantoprazole Sodium [Protonix] 40 mg PO BID #60 tablet.dr 06/28/18 Potassium Chloride [K-Tab ER] 10 meq PO DAILY #14 tablet.er 11/29/18 Allergies Allergy/AdvReac Type Severity Reaction Status Date / Time No Known Allergies Allergy Verified 12/22/18 07:31 Review of Systems ROS Statement: Those systems with pertinent positive or pertinent negative responses have been documented in the HPI. ROS Other: All systems not noted in ROS Statement are negative. Constitutional: Reports: weakness. Denies: fever, chills Respiratory: Denies: cough, dyspnea Cardiovascular: Reports: chest pain. Denies: palpitations, dyspnea on exertion, orthopnea, syncope Gastrointestinal: Denies: abdominal pain, vomiting, diarrhea Genitourinary: Denies: dysuria Musculoskeletal: Denies: back pain Skin: Denies: rash Neurological: Reports: headache. Denies: weakness, numbness, paresthesias, confusion Past Medical History Past Medical History: Atrial Fibrillation, Blood Disorder, Cancer, Osteoarthritis (OA), Pulmonary Embolus (PE) Additional Past Medical History / Comment(s): Afib/RVR, pulmonary embolism L lung, pancreatitis multiple times, ETOH abuse, recent diagnosed with R renal carcinoma with sx, BPH, past R lung pneumo with chest tube, diverticulitis, benign colon polyps, arthritis multiple joints, abdominal hernias. 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 Mother Family Medical History: Cancer Additional Family Medical History / Comment(s): Mother from ovarian cancer at the age of 69yrs. Sister(s) Family Medical History: Cancer Additional Family Medical History / Comment(s): at age 74yrs. Had breast cancer and a defibrillator General Exam Limitations: no limitations General appearance: alert, in no apparent distress, obese Head exam: Present: atraumatic Eye exam: Present: normal appearance, PERRL, EOMI Respiratory exam: Present: normal lung sounds bilaterally, chest wall t enderness. Absent: respiratory distress, wheezes, rales, rhonchi, stridor Cardiovascular Exam: Present: regular rate, normal rhythm, normal heart sounds. Absent: systolic murmur, diastolic murmur, rubs, gallop GI/Abdominal exam: Present: soft. Absent: distended, tenderness, guarding, rebound, mass Extremities exam: Present: normal inspection Back exam: Present: normal inspection. Absent: tenderness Neurological exam: Present: alert Skin exam: Present: warm, dry, intact, rash Course Vital Signs 12/22/18 12/22/18 12/22/18 05:14 06:00 06:33 Temperature 98.6 F 98.3 F Pulse Rate 98 108 H 100 Respiratory 18 22 18 Rate Blood Pressure 107/73 135/71 112/78 O2 Sat by Pulse 99 99 100 Oximetry 12/22/18 12/22/18 07:00 07:30 Temperature Pulse Rate 99 100 Respiratory 22 17 Rate Blood Pressure 112/78 125/75 O2 Sat by Pulse 99 Oximetry Medical Decision Making - Lab Data Result diagrams: 12/22/18 05:57 12/22/18 05:57 Lab Results 12/22/18 12/22/18 12/22/18 Range/Units 05:57 05:57 05:57 WBC 6.3 (3.8-10.6) k/uL RBC 2.71 L (4.30-5.90) m/uL Hgb 8.4 L (13.0-17.5) gm/dL Hct 26.6 L (39.0-53.0) % MCV 97.9 (80.0-100.0) fL MCH 31.0 (25.0-35.0) pg MCHC 31.7 (31.0-37.0) g/dL RDW 16.7 H (11.5-15.5) % Plt Count 303 (150-450) k/uL Neutrophils % 80 % Lymphocytes % 10 % Monocytes % 6 % Eosinophils % 1 % Basophils % 0 % Neutrophils # 5.1 (1.3-7.7) k/uL Lymphocytes # 0.7 L (1.0-4.8) k/uL Monocytes # 0.4 (0-1.0) k/uL Eosinophils # 0.0 (0-0.7) k/uL Basophils # 0.0 (0-0.2) k/uL Hypochromasia Moderate Anisocytosis Slight Macrocytosis Slight PT (9.0-12.0) sec INR (<1.2) APTT (22.0-30.0) sec Sodium 140 (137-145) mmol/L Potassium 4.3 (3.5-5.1) mmol/L Chloride 117 H (98-107) mmol/L Carbon Dioxide 15 L (22-30) mmol/L Anion Gap 8 mmol/L BUN 17 (9-20) mg/dL Creatinine 0.95 (0.66-1.25) mg/dL Est GFR (CKD-EPI)AfAm >90 (>60 ml/min/1.73 sqM) Est GFR (CKD-EPI)NonAf 83 (>60 ml/min/1.73 sqM) Glucose 82 (74-99) mg/dL Plasma Lactic Acid Sung (0.7-2.0) mmol/L Calcium 9.1 (8.4-10.2) mg/dL Magnesium 1.7 (1.6-2.3) mg/dL Total Bilirubin 0.7 (0.2-1.3) mg/dL AST 52 (17-59) U/L ALT 32 (21-72) U/L Alkaline Phosphatase 176 H (38-126) U/L Creatine Kinase 81 (55-170) U/L CK-MB (CK-2) 1.4 (0.0-2.4) ng/mL Troponin I <0.012 (0.000-0.034) ng/mL Total Protein 5.3 L (6.3-8.2) g/dL Albumin 2.2 L (3.5-5.0) g/dL Urine Color Urine Appearance (Clear) Urine pH (5.0-8.0) Ur Specific [place] (1.001-1.035) Urine Protein (Negative) Urine Glucose (UA) (Negative) Urine Ketones (Negative) Urine Blood (Negative) Urine Nitrite (Negative) Urine Bilirubin (Negative) Urine Urobilinogen (<2.0) mg/dL Ur Leukocyte Esterase (Negative) Urine RBC (0-5) /hpf Urine WBC (0-5) /hpf Calcium Oxalate Crystal (None) /hpf Amorphous Sediment (None) /hpf Urine Bacteria (None) /hpf Hyaline Casts (0-2) /lpf Urine Mucus (None) /hpf Serum Alcohol 22 mg/dL 12/22/18 12/22/18 12/22/18 Range/Units 05:57 05:57 05:57 WBC (3.8-10.6) k/uL RBC (4.30-5.90) m/uL Hgb (13.0-17.5) gm/dL Hct (39.0-53.0) % MCV (80.0-100.0) fL MCH (25.0-35.0) pg MCHC (31.0-37.0) g/dL RDW (11.5-15.5) % Plt Count (150-450) k/uL Neutrophils % % Lymphocytes % % Monocytes % % Eosinophils % % Basophils % % Neutrophils # (1.3-7.7) k/uL Lymphocytes # (1.0-4.8) k/uL Monocytes # (0-1.0) k/uL Eosinophils # (0-0.7) k/uL Basophils # (0-0.2) k/uL Hypochromasia Anisocytosis Macrocytosis PT 10.5 (9.0-12.0) sec INR 1.0 (<1.2) APTT 22.2 (22.0-30.0) sec Sodium (137-145) mmol/L Potassium (3.5-5.1) mmol/L Chloride (98-107) mmol/L Carbon Dioxide (22-30) mmol/L Anion Gap mmol/L BUN (9-20) mg/dL Creatinine (0.66-1.25) mg/dL Est GFR (CKD-EPI)AfAm (>60 ml/min/1.73 sqM) Est GFR (CKD-EPI)NonAf (>60 ml/min/1.73 sqM) Glucose (74-99) mg/dL Plasma Lactic Acid Sung 4.7 H* (0.7-2.0) mmol/L Calcium (8.4-10.2) mg/dL Magnesium (1.6-2.3) mg/dL Total Bilirubin (0.2-1.3) mg/dL AST (17-59) U/L ALT (21-72) U/L Alkaline Phosphatase (38-126) U/L Creatine Kinase (55-170) U/L CK-MB (CK-2) (0.0-2.4) ng/mL Troponin I (0.000-0.034) ng/mL Total Protein (6.3-8.2) g/dL Albumin (3.5-5.0) g/dL Urine Color Yellow Urine Appearance Cloudy (Clear) Urine pH 5.0 (5.0-8.0) Ur Specific [place] 1.017 (1.001-1.035) Urine Protein Trace H (Negative) Urine Glucose (UA) Negative (Negative) Urine Ketones Negative (Negative) Urine Blood Negative (Negative) Urine Nitrite Negative (Negative) Urine Bilirubin Negative (Negative) Urine Urobilinogen 2.0 (<2.0) mg/dL Ur Leukocyte Esterase Negative (Negative) Urine RBC 2 (0-5) /hpf Urine WBC 1 (0-5) /hpf Calcium Oxalate Crystal Many H (None) /hpf Amorphous Sediment Rare H (None) /hpf Urine Bacteria Rare H (None) /hpf Hyaline Casts 10 H (0-2) /lpf Urine Mucus Rare H (None) /hpf Serum Alcohol mg/dL 12/22/18 Range/Units 07:19 WBC (3.8-10.6) k/uL RBC (4.30-5.90) m/uL Hgb (13.0-17.5) gm/dL Hct (39.0-53.0) % MCV (80.0-100.0) fL MCH (25.0-35.0) pg MCHC (31.0-37.0) g/dL RDW (11.5-15.5) % Plt Count (150-450) k/uL Neutrophils % % Lymphocytes % % Monocytes % % Eosinophils % % Basophils % % Neutrophils # (1.3-7.7) k/uL Lymphocytes # (1.0-4.8) k/uL Monocytes # (0-1.0) k/uL Eosinophils # (0-0.7) k/uL Basophils # (0-0.2) k/uL Hypochromasia Anisocytosis Macrocytosis PT (9.0-12.0) sec INR (<1.2) APTT (22.0-30.0) sec Sodium (137-145) mmol/L Potassium (3.5-5.1) mmol/L Chloride (98-107) mmol/L Carbon Dioxide (22-30) mmol/L Anion Gap mmol/L BUN (9-20) mg/dL Creatinine (0.66-1.25) mg/dL Est GFR (CKD-EPI)AfAm (>60 ml/min/1.73 sqM) Est GFR (CKD-EPI)NonAf (>60 ml/min/1.73 sqM) Glucose (74-99) mg/dL Plasma Lactic Acid Sung 2.8 H* (0.7-2.0) mmol/L Calcium (8.4-10.2) mg/dL Magnesium (1.6-2.3) mg/dL Total Bilirubin (0.2-1.3) mg/dL AST (17-59) U/L ALT (21-72) U/L Alkaline Phosphatase (38-126) U/L Creatine Kinase (55-170) U/L CK-MB (CK-2) (0.0-2.4) ng/mL Troponin I (0.000-0.034) ng/mL Total Protein (6.3-8.2) g/dL Albumin (3.5-5.0) g/dL Urine Color Urine Appearance (Clear) Urine pH (5.0-8.0) Ur Specific [place] (1.001-1.035) Urine Protein (Negative) Urine Glucose (UA) (Negative) Urine Ketones (Negative) Urine Blood (Negative) Urine Nitrite (Negative) Urine Bilirubin (Negative) Urine Urobilinogen (<2.0) mg/dL Ur Leukocyte Esterase (Negative) Urine RBC (0-5) /hpf Urine WBC (0-5) /hpf Calcium Oxalate Crystal (None) /hpf Amorphous Sediment (None) /hpf Urine Bacteria (None) /hpf Hyaline Casts (0-2) /lpf Urine Mucus (None) /hpf Serum Alcohol mg/dL - EKG Data -: EKG Interpreted by Me EKG shows normal: sinus rhythm (With PVC rate), axis (Normal), intervals (N ormal), QRS complexes Rate: tachycardia (Rate 103 bpm) Interpretation: nonspecific ST-T wave changes Disposition Clinical Impression: Fall, H/O ETOH abuse Disposition: HOME SELF-CARE Condition: Good Instructions (If sedation given, give patient instructions): Fall Prevention for Older Adults (ED) Additional Instructions: He should limit your alcohol consumption. Is patient prescribed a controlled substance at d/c from ED?: No Referrals: Rebekah Hood DO [Primary Care Provider] - 1-2 days
--- NOTE | 2018-12-22 06:18 | XR ---
EXAM: XR Chest, 1 View CLINICAL HISTORY: Fall. TECHNIQUE: Frontal view of the chest. COMPARISON: CT dated 09/15/2018 and CXR dated 06/26/2018. FINDINGS: Lungs: Opacity at right lung base. Left lung appears clear. Pleural space: No significant pleural effusion. No pneumothorax. Heart: Unremarkable. No cardiomegaly. Mediastinum: No significantly mediastinal widening. Bones/joints: Right posterior rib fractures which may be chronic. Osseous structures otherwise appear grossly intact. IMPRESSION: 1. Opacity at right lung base which may represent atelectasis, scarring or other process. 2. Right posterior rib fractures which appear similar compared to prior CXR dated 06/26/2018 compatible with old fractures. If there is clinical concern for acute traumatic chest injury, CT can be obtained to further assess.
[2018-12-22 06:21] LABS: Anisocytosis Slight; Basophils % (A) 0 %; Eosinophils % (A) 1 %; HCT 26.6 % (39.0-53.0); HGB 8.4 gm/dL (13.0-17.5); Hypochromasia Moderate; Lymphocytes # (A) 0.7 k/uL (1.0-4.8); Lymphocytes % (A) 10 %; MCHC 31.7 g/dL (31.0-37.0); MCV 97.9 fL (80.0-100.0); Macrocytosis Slight; Mean Platelet Volume 8.3; Monocytes # (A) 0.4 k/uL (0-1.0); Monocytes % (A) 6 %; Neutrophils # (A) 5.1 k/uL (1.3-7.7); Neutrophils % (A) 80 %; Platelet Count 303 k/uL (150-450); RBC 2.71 m/uL (4.30-5.90); RDW 16.7 % (11.5-15.5); WBC 6.3 k/uL (3.8-10.6)
[2018-12-22 06:32] LABS: ALT 32 U/L (21-72); AST 52 U/L (17-59); Albumin 2.2 g/dL (3.5-5.0); Alcohol 22 mg/dL; Alkaline Phosphatase 176 U/L (38-126); Anion Gap 8 mmol/L; Blood Urea Nitrogen 17 mg/dL (9-20); Calcium 9.1 mg/dL (8.4-10.2); Carbon Dioxide 15 mmol/L (22-30); Chloride 117 mmol/L (98-107); Creatine Kinase 81 U/L (55-170); Glucose 82 mg/dL (74-99); Magnesium 1.7 mg/dL (1.6-2.3); Partial Thromboplastin Time 22.2 sec (22.0-30.0); Potassium 4.3 mmol/L (3.5-5.1); Prothrombin Time 10.5 sec (9.0-12.0); Sodium 140 mmol/L (137-145); Total Bilirubin 0.7 mg/dL (0.2-1.3); Total Protein 5.3 g/dL (6.3-8.2)
[2018-12-22 06:35] VITALS: TEMP 98.3
[2018-12-22] MEDS ORDERED: SODIUM CHLORIDE 0.9% 1,000 ML IV ONE (06:36)
[2018-12-22 06:51] LABS: Creatine Kinase MB 1.4 ng/mL (0.0-2.4); Troponin I <0.012 ng/mL (0.000-0.034)
[2018-12-22 06:53] LABS: Amorphous Sediment,Urine Rare /hpf; Appearance,Urine Cloudy (Clear); Bacteria,Urine Rare /hpf; Bilirubin,Urine Negative (Negative); Blood,Urine Negative (Negative); Calcium Oxalate Crystals,Urine Many /hpf; Color,Urine Yellow; Glucose,Urine (UA) Negative (Negative); Hyaline Casts,Urine 10 /lpf (0-2); Ketones,Urine Negative (Negative); Leukocyte Esterase,Urine Negative (Negative); Mucus,Urine Rare /hpf; Nitrite,Urine Negative (Negative); Protein,Urine Trace (Negative); RBC,Urine 2 /hpf (0-5); Specific Gravity,Urine 1.017 (1.001-1.035); WBC,Urine 1 /hpf (0-5)
--- NOTE | 2018-12-22 07:00 | CT ---
EXAM: CT Head Without Intravenous Contrast CLINICAL HISTORY: Fall. TECHNIQUE: Axial computed tomography images of the head/brain without intravenous contrast. Coronal and sagittal reformations provided. CTDI is 45.2 mGy and DLP is 1051 mGy-cm. This CT exam was performed using one or more of the following dose reduction techniques: automated exposure control, adjustment of the mA and/or kV according to patient size, and/or use of iterative reconstruction technique. COMPARISON: CT dated 06/28/2017. FINDINGS: Brain: No evidence of acute infarct. No acute intracranial hemorrhage. No significant white matter disease. No edema. No mass effect or midline shift. Mild atrophy. Ventricles: Unremarkable for age. No ventriculomegaly. Bones/joints: No skull fracture. Broken left upper molar tooth which is incompletely imaged and of indeterminate age. Soft tissues: Unremarkable. Sinuses: Unremarkable as visualized. No acute sinusitis. Mastoid air cells: Unremarkable as visualized. No mastoid effusion. IMPRESSION: 1. No acute intracranial hemorrhage, skull fracture, or other acute intracranial abnormality. 2. Mild atrophy. 3. Broken left upper molar tooth which is incompletely imaged and of indeterminate age. Correlate clinically. EXAM: CT Cervical Spine Without Intravenous Contrast CLINICAL HISTORY: Fall. TECHNIQUE: Axial computed tomography images of the cervical spine without intravenous contrast. Coronal and sagittal reformations provided. CTDI is 17.8 mGy and DLP is 478.4 mGy-cm. This CT exam was performed using one or more of the following dose reduction techniques: automated exposure control, adjustment of the mA and/or kV according to patient size, and/or use of iterative reconstruction technique. COMPARISON: No relevant prior studies available. FINDINGS: Vertebrae: No acute fracture of the cervical spine. Degenerative changes of cervical spine. Mild anterolisthesis at C4-5 which is probably related to chronic degenerative change. Discs/spinal canal/neural foramina: Degenerative changes of the cervical spine result in varying degrees of spinal canal and neural foraminal narrowing. Soft tissues: Unremarkable. IMPRESSION: 1. No acute fracture of the cervical spine. 2. Degenerative changes of the cervical spine. 3. Mild anterolisthesis at C4-5 which is probably related to chronic degenerative change.
[2018-12-22] MEDS ORDERED: SODIUM CHLORIDE 0.9% 500 ML 500 ML IV STA (07:08)
[2018-12-22 08:35] VITALS: BP 108/79; PULSE 98; RESP 18
== END 2018-12-22 08:31 | disposition home or self-care (01) ==
LOC: EC 05:06
DX: F10.11 Alcohol abuse, in remission (principal); I49.3 Ventricular premature depolarization; R94.31 Abnormal electrocardiogram [ECG] [EKG]; R00.0 Tachycardia, unspecified; R21 Rash and other nonspecific skin eruption; R29.6 Repeated falls; S09.90XA Unspecified injury of head, initial encounter; S29.9XXA Unspecified injury of thorax, initial encounter; M19.90 Unspecified osteoarthritis, unspecified site; I48.91 Unspecified atrial fibrillation; Z87.891 Personal history of nicotine dependence; Z79.01 Long term (current) use of anticoagulants; Z79.899 Other long term (current) drug therapy; Z86.711 Personal history of pulmonary embolism; Z96.652 Presence of left artificial knee joint; Z85.528 Personal history of other malignant neoplasm of kidney; Z98.890 Other specified postprocedural states; Z82.49 Family history of ischemic heart disease and other diseases of the circulatory system; W01.0XXA Fall on same level from slipping, tripping and stumbling without subsequent striking against object, initial encounter; Y92.009 Unspecified place in unspecified non-institutional (private) residence as the place of occurrence of the external cause
CPT/HCPCS: 36415; 70450; 71045; 72125; 80053; 80320; 81001; 82550; 82553; 83605; 83735; 84484; 85025; 85610; 85730; 93005; 96361; 96374; 99284

== ENCOUNTER 2019-01-03 08:10 | Emergency (ER) | payer MEDICARE, OTHER ==
[2019-01-03 08:14] VITALS: BP 111/68; PULSE 97; RESP 18; TEMP 97.8
--- NOTE | 2019-01-03 08:36 | ED ---
URI HPI - General Chief Complaint: Upper Respiratory Infection Stated Complaint: chest congestion/cough Time Seen by Provider: 01/03/19 08:26 Source: patient, RN notes reviewed Mode of arrival: ambulatory Limitations: no limitations - History of Present Illness Initial Comments: 68-year-old male presents emergency Department chief complaint of cough con gestion fever. Patient states symptoms started primarily last night. Patient states he's had a persistent cough that is occasionally productive. Denies any chest pain, neck pain, neck stiffness. Patient has no nausea vomiting diarrhea constipation. Patient states that he just feels very achy all over has mild runny nose, sore throat denies ear pain. No current headache. Patient states that he did have influenza and feels somewhat. - Related Data Home Medications Medication Instructions Recorded Confirmed Allopurinol [Zyloprim] 300 mg PO DAILY 02/22/14 01/03/19 Cholecalciferol [Vitamin D3] 5,000 unit PO DAILY 07/26/14 01/03/19 Metoprolol Tartrate [Lopressor] 25 mg PO BID 06/28/17 01/03/19 Cyanocobalamin (Vitamin B-12) 1,000 mcg PO DAILY 01/03/19 01/03/19 [Vitamin B-12] Furosemide [Lasix] 40 mg PO DAILY 01/03/19 01/03/19 Previous Rx's Medication Instructions Recorded Multivitamin [Men's Multi-Vitamin] 1 tab PO DAILY #30 07/01/17 Apixaban [Eliquis] 5 mg PO BID #0 06/28/18 Pantoprazole Sodium [Protonix] 40 mg PO BID #60 tablet.dr 06/28/18 Potassium Chloride [K-Tab ER] 10 meq PO DAILY #14 tablet.er 11/29/18 Azithromycin [Zithromax Z-pack] 0 mg PO DIRECTED #1 pack 01/03/19 Allergies Allergy/AdvReac Type Severity Reaction Status Date / Time No Known Allergies Allergy Verified 01/03/19 08:57 Review of Systems ROS Statement: Those systems with pertinent positive or pertinent negative responses have been documented in the HPI. ROS Other: All systems not noted in ROS Statement are negative. Past Medical History Past Medical History: Atrial Fibrillation, Blood Disorder, Cancer, Osteoarthritis (OA), Pulmonary Embolus (PE) Additional Past Medical History / Comment(s): Afib/RVR, pulmonary embolism L lung, pancreatitis multiple times, ETOH abuse, recent diagnosed with R renal carcinoma with sx, BPH, past R lung pneumo with chest tube, diverticulitis, benign colon polyps, arthritis multiple joints, abdominal hernias. Dizziness fall and right rib fractures 09/15/19, History of Any Multi-Drug Resistant Organisms: None Reported Past Surgical History: Bariatric Surgery, Bowel Resection, Cholecystectomy, Hernia Repair, Joint Replacement Additional Past Surgical History / Comment(s): Recent (2017) r kidney lesion cryoablation at [facility], 2012 bowel resection d/t viscus perf with colostomy later reversed , gastric sleeve converted to darrell-en-Y 08/2014-post op wound infection, paraesphogeal hiat hernia repair, R inguinal and umbilical hernia repairs, colonoscopies, L total knee arthroplasty., Past Anesthesia/Blood Transfusion Reactions: No Reported Reaction Past Psychological History: No Psychological Hx Reported Smoking Status: Former smoker Past Alcohol Use History: Occasional Past Drug Use History: None Reported - Past Family History Father Family Medical History: COPD, Myocardial Infarction (MD) Additional Family Medical History / Comment(s): Father from a MD at the age of 69yrs. Mother Family Medical History: Cancer Additional Family Medical History / Comment(s): Mother from ovarian cancer at the age of 69yrs. Sister(s) Family Medical History: Cancer Additional Family Medical History / Comment(s): at age 74yrs. Had breast cancer and a defibrillator General Exam Limitations: no limitations General appearance: alert, in no apparent distress Head exam: Present: atraumatic, normocephalic, normal inspection Eye exam: Present: normal appearance, PERRL, EOMI. Absent: scleral icterus, conjunctival injection, periorbital swelling ENT exam: Present: normal exam, normal oropharynx, mucous membranes moist, TM's normal bilaterally Neck exam: Present: normal inspection, full ROM. Absent: tenderness, meningismus, lymphadenopathy Respiratory exam: Present: normal lung sounds bilaterally. Absent: respiratory distress, wheezes, rales, rhonchi, stridor Cardiovascular Exam: Present: regular rate, normal rhythm, normal heart sounds. Absent: systolic murmur, diastolic murmur, rubs, gallop, clicks GI/Abdominal exam: Present: soft, normal bowel sounds. Absent: distended, tenderness, guarding, rebound, rigid Extremities exam: Absent: pedal edema Course Vital Signs 01/03/19 08:11 Temperature 97.8 F Pulse Rate 97 Respiratory 18 Rate Blood Pressure 111/68 O2 Sat by Pulse 99 Oximetry Medical Decision Making - Medical Decision Making 68-year-old female presented for cough congestion starting last one to days. Chest x-ray reviewed shows possibility of early infiltrate. Patient we given a shot of Rocephin, discharged azithromycin. Patient is in no distress. Patient's influenza testing is negative. Vitals are stable. Patient will follow-up PCP and in one to 2 days. - Lab Data Lab Results 01/03/19 Range/Units 08:30 Influenza Type A RNA Not Detected (Not Detectd) Influenza Type B (PCR) Not Detected (Not Detectd) Disposition Clinical Impression: Pneumonia Disposition: HOME SELF-CARE Condition: Stable Instructions (If sedation given, give patient instructions): Upper Respiratory Infection (ED) Additional Instructions: Please return to the Emergency Department if symptoms worsen or any other concerns. Prescriptions: Azithromycin [Zithromax Z-pack] 0 mg PO DIRECTED #1 pack Is patient prescribed a controlled substance at d/c from ED?: No Referrals: Rebekah Hood DO [Primary Care Provider] - 1-2 days Time of Disposition: 09:39
--- NOTE | 2019-01-03 09:03 | XR ---
EXAMINATION TYPE: XR chest 2V DATE OF EXAM: 01/03/2019 COMPARISON: 06/26/2020 HISTORY: 68-year-old male cough and pain TECHNIQUE: PA and lateral views FINDINGS: Heart normal size. Aorta and pulmonary vasculature within normal limits. Slight elevation of the diap hragm is redemonstrated with focal patchy right basilar opacity. Multiple old right-sided rib fractur e deformities. IMPRESSION: Similar posttraumatic changes at the right base with pleural-parenchymal scarring. Subtle underlying infiltrate would be difficult to exclude. Clinically correlate.
[2019-01-03] MEDS ORDERED: cefTRIAXone 1,000 MG VIAL (IM USE) IM STA (09:38)
== END 2019-01-03 10:13 | disposition home or self-care (01) ==
LOC: EC 08:10
DX: J18.9 Pneumonia, unspecified organism (principal); I48.91 Unspecified atrial fibrillation; M19.90 Unspecified osteoarthritis, unspecified site; Z85.528 Personal history of other malignant neoplasm of kidney; Z96.652 Presence of left artificial knee joint; Z87.891 Personal history of nicotine dependence; Z86.711 Personal history of pulmonary embolism; Z82.5 Family history of asthma and other chronic lower respiratory diseases; Z79.899 Other long term (current) drug therapy
CPT/HCPCS: 87502; 71046; 99283; 96372; J0696

== ENCOUNTER 2019-01-08 02:48 | Emergency (ER) | payer MEDICARE, OTHER ==
[2019-01-08 02:52] VITALS: TEMP 97.8
[2019-01-08] MEDS ORDERED: SODIUM CHLORIDE 0.9% 1,000 ML IV STA (02:53)
--- NOTE | 2019-01-08 02:54 | ED ---
General Adult HPI - General Chief complaint: Fall Stated complaint: Fall, Weakness Time Seen by Provider: 01/08/19 02:52 Source: patient, EMS Mode of arrival: EMS Limitations: no limitations - History of Present Illness Initial comments: Martin garrett 68-year-old gentleman who presents the emergency department today for evaluation of a possible head injury after a fall. Patient reports that he had some beers and some shots of alcohol this evening he then fell asleep in his chair. Patient reports that he woke up in his chair and tossed his blanket on to the ground he then got up his feet, tingled in the blanket and he fell backwards his head hit the armrest of his couch. Patient reports that the armrest of his couch is patted it is not a anytime he states his head he should come to the emergency department stay came in for evaluation. Patient states that he was evaluated earlier in the week S with an upper respiratory infection. He reports that his breathing has gotten better that time. - Related Data Home Medications Medication Instructions Recorded Confirmed Allopurinol [Zyloprim] 300 mg PO DAILY 02/22/14 01/03/19 Cholecalciferol [Vitamin D3] 5,000 unit PO DAILY 07/26/14 01/03/19 Metoprolol Tartrate [Lopressor] 25 mg PO BID 06/28/17 01/03/19 Cyanocobalamin (Vitamin B-12) 1,000 mcg PO DAILY 01/03/19 01/03/19 [Vitamin B-12] Furosemide [Lasix] 40 mg PO DAILY 01/03/19 01/03/19 Previous Rx's Medication Instructions Recorded Multivitamin [Men's Multi-Vitamin] 1 tab PO DAILY #30 07/01/17 Apixaban [Eliquis] 5 mg PO BID #0 06/28/18 Pantoprazole Sodium [Protonix] 40 mg PO BID #60 tablet.dr 06/28/18 Potassium Chloride [K-Tab ER] 10 meq PO DAILY #14 tablet.er 11/29/18 Azithromycin [Zithromax Z-pack] 0 mg PO DIRECTED #1 pack 01/03/19 Allergies Allergy/AdvReac Type Severity Reaction Status Date / Time No Known Allergies Allergy Verified 01/08/19 02:53 Review of Systems ROS Statement: Those systems with pertinent positive or pertinent negative responses have been documented in the HPI. ROS Other: All systems not noted in ROS Statement are negative. Past Medical History Past Medical History: Atrial Fibrillation, Blood Disorder, Cancer, Osteoarthritis (OA), Pulmonary Embolus (PE) Additional Past Medical History / Comment(s): Afib/RVR, pulmonary embolism L yao ng, pancreatitis multiple times, ETOH abuse, recent diagnosed with R renal carcinoma with sx, BPH, past R lung pneumo with chest tube, diverticulitis, benign colon polyps, arthritis multiple joints, abdominal hernias. Dizziness fall and right rib fractures 09/15/19, History of Any Multi-Drug Resistant Organisms: None Reported Past Surgical History: Bariatric Surgery, Bowel Resection, Cholecystectomy, Hernia Repair, Joint Replacement Additional Past Surgical History / Comment(s): Recent (2017) r kidney lesion cryoablation at [facility], 2012 bowel resection d/t viscus perf with colostomy later reversed , gastric sleeve converted to darrell-en-Y 08/2014-post op wound infection, paraesphogeal hiat hernia repair, R inguinal and umbilical hernia repairs, colonoscopies, L total knee arthroplasty., Past Anesthesia/Blood Transfusion Reactions: No Reported Reaction Past Psychological History: No Psychological Hx Reported Smoking Status: Former smoker Past Alcohol Use History: Occasional Past Drug Use History: None Reported - Past Family History Father Family Medical History: COPD, Myocardial Infarction (IA) Additional Family Medical History / Comment(s): Father from a IA at the age of 69yrs. Mother Family Medical History: Cancer Additional Family Medical History / Comment(s): Mother from ovarian cancer at the age of 69yrs. Sister(s) Family Medical History: Cancer Additional Family Medical History / Comment(s): at age 74yrs. Had breast cancer and a defibrillator General Exam - General Exam Comments Initial Comments: Physical Exam GENERAL: Obese Chronically ill appearing Pale HENT: Normocephalic, Atraumatic. No obvious head injury EYES: PERRL, EOMI PULMONARY: Unlabored respirations. No audible rales rhonchi or wheezing was noted. CARDIOVASCULAR: RRR ABDOMEN: Soft and nontender with normal bowel sounds. SKIN: Skin is clear with no lesions or rashes and otherwise unremarkable. : Deferred NEUROLOGIC: Patient is alert and oriented x3. Moving all extremities spontaneously MUSCULOSKELETAL: Normal extremities with adequate strength and full range of motion. No lower extremity swelling or edema. No calf tenderness. PSYCHIATRIC: Normal psychiatric evaluation. Limitations: no limitations Limitations: no limitations Course Vital Signs 01/08/19 01/08/19 01/08/19 02:49 03:30 04:00 Temperature 97.8 F Pulse Rate 78 78 80 Respiratory 16 19 19 Rate Blood Pressure 106/78 106/88 127/98 O2 Sat by Pulse 97 96 98 Oximetry 01/08/19 04:30 Temperature Pulse Rate 87 Respiratory 14 Rate Blood Pressure 130/75 O2 Sat by Pulse 99 Oximetry EKG Findings - EKG Comments: EKG Findings:: EKG obtained at 3:02 AM, rate of 79 rhythm is sinus there is normal axis and normal intervals, W[place] 186, QRS 72, QTc is 456 her no chest elevations or depressions no evidence of acute ischemia or infarction. Medical Decision Making - Medical Decision Making The patient was seen and evaluated history was obtained from the patient and review of medical record Labs and imaging were ordered Head CT with no acute findings Chest x-ray with improvement from previous exam Labs reveal improving anemia, no leukocytosis but otherwise at baseline Results were discussed with the patient, patient remains awake alert oriented with no acute complaints. This time the patient is stable for discharge home with outpatient follow-up. - Lab Data Result diagrams: 01/08/19 03:04 01/08/19 03:04 Lab Results 01/08/19 01/08/19 01/08/19 Range/Units 03:04 03:04 03:04 WBC 4.2 (3.8-10.6) k/uL RBC 3.08 L (4.30-5.90) m/uL Hgb 9.5 L (13.0-17.5) gm/dL Hct 31.0 L (39.0-53.0) % MCV 100.7 H (80.0-100.0) fL MCH 30.7 (25.0-35.0) pg MCHC 30.5 L (31.0-37.0) g/dL RDW 17.7 H (11.5-15.5) % Plt Count 305 (150-450) k/uL Neutrophils % 56 % Lymphocytes % 30 % Monocytes % 7 % Eosinophils % 3 % Basophils % 1 % Neutrophils # 2.4 (1.3-7.7) k/uL Lymphocytes # 1.3 (1.0-4.8) k/uL Monocytes # 0.3 (0-1.0) k/uL Eosinophils # 0.1 (0-0.7) k/uL Basophils # 0.0 (0-0.2) k/uL Hypochromasia Marked Anisocytosis Slight Macrocytosis Slight PT 10.8 (9.0-12.0) sec INR 1.0 (<1.2) APTT 22.2 (22.0-30.0) sec Sodium 142 (137-145) mmol/L Potassium 4.4 (3.5-5.1) mmol/L Chloride 115 H (98-107) mmol/L Carbon Dioxide 18 L (22-30) mmol/L Anion Gap 9 mmol/L BUN 7 L (9-20) mg/dL Creatinine 0.99 (0.66-1.25) mg/dL Est GFR (CKD-EPI)AfAm >90 (>60 ml/min/1.73 sqM) Est GFR (CKD-EPI)NonAf 78 (>60 ml/min/1.73 sqM) Glucose 96 (74-99) mg/dL Calcium 8.6 (8.4-10.2) mg/dL Magnesium 1.8 (1.6-2.3) mg/dL Total Bilirubin 0.5 (0.2-1.3) mg/dL AST 67 H (17-59) U/L ALT 42 (21-72) U/L Alkaline Phosphatase 296 H (38-126) U/L Troponin I (0.000-0.034) ng/mL Total Protein 5.5 L (6.3-8.2) g/dL Albumin 2.4 L (3.5-5.0) g/dL 01/08/19 Range/Units 03:04 WBC (3.8-10.6) k/uL RBC (4.30-5.90) m/uL Hgb (13.0-17.5) gm/dL Hct (39.0-53.0) % MCV (80.0-100.0) fL MCH (25.0-35.0) pg MCHC (31.0-37.0) g/dL RDW (11.5-15.5) % Plt Count (150-450) k/uL Neutrophils % % Lymphocytes % % Monocytes % % Eosinophils % % Basophils % % Neutrophils # (1.3-7.7) k/uL Lymphocytes # (1.0-4.8) k/uL Monocytes # (0-1.0) k/uL Eosinophils # (0-0.7) k/uL Basophils # (0-0.2) k/uL Hypochromasia Anisocytosis Macrocytosis PT (9.0-12.0) sec INR (<1.2) APTT (22.0-30.0) sec Sodium (137-145) mmol/L Potassium (3.5-5.1) mmol/L Chloride (98-107) mmol/L Carbon Dioxide (22-30) mmol/L Anion Gap mmol/L BUN (9-20) mg/dL Creatinine (0.66-1.25) mg/dL Est GFR (CKD-EPI)AfAm (>60 ml/min/1.73 sqM) Est GFR (CKD-EPI)NonAf (>60 ml/min/1.73 sqM) Glucose (74-99) mg/dL Calcium (8.4-10.2) mg/dL Magnesium (1.6-2.3) mg/dL Total Bilirubin (0.2-1.3) mg/dL AST (17-59) U/L ALT (21-72) U/L Alkaline Phosphatase (38-126) U/L Troponin I <0.012 (0.000-0.034) ng/mL Total Protein (6.3-8.2) g/dL Albumin (3.5-5.0) g/dL Disposition Clinical Impression: Fall at home Disposition: HOME SELF-CARE Condition: Stable Instructions (If sedation given, give patient instructions): Fall Prevention for Older Adults (ED) Is patient prescribed a controlled substance at d/c from ED?: No Referrals: Rebekah Hood DO [Primary Care Provider] - 1-2 days
[2019-01-08 03:23] LABS: Anisocytosis Slight; Basophils % (A) 1 %; Eosinophils # (A) 0.1 k/uL (0-0.7); Eosinophils % (A) 3 %; HGB 9.5 gm/dL (13.0-17.5); Hypochromasia Marked; Lymphocytes # (A) 1.3 k/uL (1.0-4.8); Lymphocytes % (A) 30 %; MCH 30.7 pg (25.0-35.0); MCHC 30.5 g/dL (31.0-37.0); MCV 100.7 fL (80.0-100.0); Macrocytosis Slight; Monocytes # (A) 0.3 k/uL (0-1.0); Monocytes % (A) 7 %; Neutrophils # (A) 2.4 k/uL (1.3-7.7); Neutrophils % (A) 56 %; Platelet Count 305 k/uL (150-450); RBC 3.08 m/uL (4.30-5.90); RDW 17.7 % (11.5-15.5); WBC 4.2 k/uL (3.8-10.6)
[2019-01-08 03:24] LABS: Partial Thromboplastin Time 22.2 sec (22.0-30.0); Prothrombin Time 10.8 sec (9.0-12.0)
[2019-01-08 03:27] LABS: ALT 42 U/L (21-72); AST 67 U/L (17-59); Albumin 2.4 g/dL (3.5-5.0); Alkaline Phosphatase 296 U/L (38-126); Anion Gap 9 mmol/L; Blood Urea Nitrogen 7 mg/dL (9-20); Calcium 8.6 mg/dL (8.4-10.2); Carbon Dioxide 18 mmol/L (22-30); Chloride 115 mmol/L (98-107); Glucose 96 mg/dL (74-99); Magnesium 1.8 mg/dL (1.6-2.3); Potassium 4.4 mmol/L (3.5-5.1); Sodium 142 mmol/L (137-145); Total Bilirubin 0.5 mg/dL (0.2-1.3); Total Protein 5.5 g/dL (6.3-8.2)
--- NOTE | 2019-01-08 04:04 | XR ---
EXAM: XR Chest, 2 Views CLINICAL HISTORY: syncope TECHNIQUE: Frontal and lateral views of the chest. COMPARISON: 01/03/19 FINDINGS: Lungs: Improved aeration lungs compared to prior study with some persistent consolidation suggested in the right lower lobe although diminished from prior study Pleural space: Unremarkable. No pneumothorax. Heart: Unremarkable. No cardiomegaly. Mediastinum: Unremarkable. Bones/joints: Unremarkable. IMPRESSION: Improving aeration lungs compared to prior study with persistent residual consolidation right lower lobe.
--- NOTE | 2019-01-08 04:13 | CT ---
EXAM: CT Head Without Intravenous Contrast CLINICAL HISTORY: syncope, head inj TECHNIQUE: Axial computed tomography images of the head/brain without intravenous contrast. CTDI is 45.2 mGy and DLP is 1035 mGy-cm. This CT exam was performed using one or more of the following dose reduction techniques: automated exposure control, adjustment of the mA and/or kV according to patient size, and/or use of iterative reconstruction technique. COMPARISON: 12/22/18 FINDINGS: Brain: Unremarkable. No hemorrhage. No significant white matter disease. No edema. Ventricles: Unremarkable. No ventriculomegaly. Bones/joints: Unremarkable. No acute fracture. Soft tissues: Unremarkable. Sinuses: Unremarkable as visualized. No acute sinusitis. Mastoid air cells: Unremarkable as visualized. No mastoid effusion. IMPRESSION: No acute abnormality. No change from prior study EXAM: CT Cervical Spine Without Intravenous Contrast CLINICAL HISTORY: : syncope, head inj TECHNIQUE: Axial computed tomography images of the cervical spine without intravenous contrast. CTDI is 18.8 mGy and DLP is 502.2 mGy-cm. This CT exam was performed using one or more of the following dose reduction techniques: automated exposure control, adjustment of the mA and/or kV according to patient size, and/or use of iterative reconstruction technique. Coronal and sagittal reformatted images were created and reviewed. COMPARISON: 12/22/18 FINDINGS: Vertebrae: Unremarkable. No acute fracture. No change in alignment compared to prior study Discs/spinal canal/neural foramina: No acute findings. No spinal canal stenosis. Soft tissues: Unremarkable. IMPRESSION: No change in alignment compared to prior study
[2019-01-08 04:32] VITALS: BP 130/75; PULSE 87; RESP 14
== END 2019-01-08 04:37 | disposition home or self-care (01) ==
LOC: EC 02:48
DX: D64.9 Anemia, unspecified (principal); M19.90 Unspecified osteoarthritis, unspecified site; Z87.891 Personal history of nicotine dependence; Z79.899 Other long term (current) drug therapy; Z85.528 Personal history of other malignant neoplasm of kidney; Z96.652 Presence of left artificial knee joint; Z98.890 Other specified postprocedural states; Z86.19 Personal history of other infectious and parasitic diseases; W01.190A Fall on same level from slipping, tripping and stumbling with subsequent striking against furniture, initial encounter; Y93.89 Activity, other specified; Y92.009 Unspecified place in unspecified non-institutional (private) residence as the place of occurrence of the external cause
CPT/HCPCS: 36415; 70450; 71046; 72125; 80053; 83735; 84484; 85025; 85610; 85730; 96360; 99284

== ENCOUNTER 2019-01-11 11:08 | Emergency (ER) | payer MEDICARE, OTHER ==
[2019-01-11 11:15] VITALS: RESP 18; TEMP 98
[2019-01-11] MEDS ORDERED: MORPHINE SULFATE 4 MG/ML SYRINGE IM STA (11:56)
--- NOTE | 2019-01-11 12:00 | ED ---
General Adult HPI - General Chief complaint: Back Pain/Injury Stated complaint: LOWER BACK PAIN Time Seen by Provider: 01/11/19 11:09 Source: patient Mode of arrival: EMS Limitations: no limitations - History of Present Illness Initial comments: Dictation was produced using [employer] dictation software. please excuse any grammatical, word or spelling errors. Chief Complaint: 68-year-old male presents with chief complaint of back pain. History of Present Illness: This 68-year-old male presents chief complaint back pain. Patient was seen 3 days ago for fall and head contusion. He is discharged at that time. Reports that while being discharged she began experiencing lower back pain. Patient states he went home and continued to have progressive back pain. Patient had physical therapy today when his back pain is getting worse called EMS came to the emergency department. She denies any fevers. The ROS documented in this emergency department record has been reviewed and confirmed by me. Those systems with pertinent positive or negative responses have been documented in the HPI. All other systems are other negative and/or noncontributory. PHYSICAL EXAM: General Impression: Alert and oriented x3, not in acute distress HEENT: Normocephalic atraumatic, extra-ocular movements intact, pupils equal and reactive to light bilaterally, mucous membranes moist. Cardiovascular: Heart regular rate and rhythm, S1&S2 audible, no murmurs, rubs or gallops Chest: Lungs clear to auscultation bilaterally, no rhonchi, no wheeze, no rales Abdomen: Bowel sounds present, abdomen soft, non-tender, non-distended, no organomegaly Musculoskeletal: Pulses present and equal in all extremities, no peripheral edema, tenderness to palpation over the lower lumbar spine Motor: no focal deficits noted Neurological: CN II-XII grossly intact, no focal motor or sensory deficits noted Skin: Intact with no visualized rashes Psych: Normal affect and mood ED course: 68-year-old male presents with chief complaint of lower back pain. As upon arrival are within acceptable limits. Patient states his symptoms began after fall. Her that there is history of trauma CT imaging will be ordered. CT imaging was obtained showing diffuse arthritic changes to the lumbar spine. There is also moderate to severe foraminal stenosis at the lower L-spine on the right. This is likely the cause of this patient's symptoms. Patient given by mouth analgesia to go home with. He is given outpatient referral to soil fertility specialist. Patient is told to notify his physical therapist for back exercises to help with his lower back pain. Patient otherwise agreeable for disposition. Return parameters discussed. - Related Data Home Medications Medication Instructions Recorded Confirmed Allopurinol [Zyloprim] 300 mg PO DAILY 02/22/14 01/11/19 Cholecalciferol [Vitamin D3] 5,000 unit PO DAILY 07/26/14 01/11/19 Metoprolol Tartrate [Lopressor] 25 mg PO BID 06/28/17 01/11/19 Cyanocobalamin (Vitamin B-12) 1,000 mcg PO DAILY 01/03/19 01/11/19 [Vitamin B-12] Furosemide [Lasix] 40 mg PO DAILY 01/03/19 01/11/19 Ferrous Sulfate [Feosol] 325 mg PO DAILY 01/11/19 01/11/19 Previous Rx's Medication Instructions Recorded Multivitamin [Men's Multi-Vitamin] 1 tab PO DAILY #30 07/01/17 Apixaban [Eliquis] 5 mg PO BID #0 06/28/18 Pantoprazole Sodium [Protonix] 40 mg PO BID #60 tablet. 06/28/18 Potassium Chloride [K-Tab ER] 10 meq PO DAILY #14 tablet.er 11/29/18 HYDROcodone/APAP 5-325MG [[place] 1 tab PO Q6HR PRN 3 Days #12 tab 01/11/19 5-325] Allergies Allergy/AdvReac Type Severity Reaction Status Date / Time No Known Allergies Allergy Verified 01/11/19 11:13 Review of Systems ROS Statement: Those systems with pertinent positive or pertinent negative responses have been documented in the HPI. ROS Other: All systems not noted in ROS Statement are negative. Past Medical History Past Medical History: Atrial Fibrillation, Blood Disorder, Cancer, Osteoarthritis (OA), Pulmonary Embolus (PE) Additional Past Medical History / Comment(s): Afib/RVR, pulmonary embolism L lung, pancreatitis multiple times, ETOH abuse, recent diagnosed with R renal carcinoma with sx, BPH, past R lung pneumo with chest tube, diverticulitis, benign colon polyps, arthritis multiple joints, abdominal hernias. Dizziness fall and right rib fractures 09/15/19, History of Any Multi-Drug Resistant Organisms: None Reported Past Surgical History: Bariatric Surgery, Bowel Resection, Cholecystectomy, Hernia Repair, Joint Replacement Additional Past Surgical History / Comment(s): Recent (2017) r kidney lesion cryoablation at [facility], 2013 bowel resection d/t viscus perf with colostomy later reversed , gastric sleeve converted to darrell-en-Y 08/2014-post op wound infection, paraesphogeal hiat hernia repair, R inguinal and umbilical hernia repairs, colonoscopies, L total knee arthroplasty., Past Anesthesia/Blood Transfusion Reactions: No Reported Reaction Past Psychological History: No Psychological Hx Reported Smoking Status: Former smoker Past Alcohol Use History: Occasional Past Drug Use History: None Reported - Past Family History Father Family Medical History: COPD, Myocardial Infarction ([place]) Additional Family Medical History / Comment(s): Father from a [place] at the age of 69yrs. Mother Family Medical History: Cancer Additional Family Medical History / Comment(s): Mother from ovarian cancer at the age of 69yrs. Sister(s) Family Medical History: Cancer Additional Family Medical History / Comment(s): at age 74yrs. Had breast cancer and a defibrillator General Exam Limitations: no limitations Course Vital Signs 01/11/19 01/11/19 11:11 12:48 Temperature 98.0 F Pulse Rate 66 72 Respiratory 18 18 Rate Blood Pressure 112/80 111/69 O2 Sat by Pulse 99 100 Oximetry Disposition Clinical Impression: Back strain Disposition: HOME SELF-CARE Condition: Good Instructions (If sedation given, give patient instructions): Acute Low Back Pain (ED) Prescriptions: HYDROcodone/APAP 5-325MG [[place] 5-325] 1 tab PO Q6HR PRN 3 Days #12 tab PRN Reason: Severe Pain Is patient prescribed a controlled substance at d/c from ED?: Yes If prescribed controlled substance>3 days was MAPS reviewed?: Prescribed <3 Days Referrals: Rebekah Hood DO [Primary Care Provider] - 1-2 days Nawaf Diaz DO [Doctor of Osteopathic Medicine] - 1-2 days Decision Time: 13:24
[2019-01-11 12:49] VITALS: PULSE 72
--- NOTE | 2019-01-11 13:08 | CT ---
EXAMINATION TYPE: CT lumbar spine wo con DATE OF EXAM: 01/11/2019 COMPARISON: None HISTORY: 68-year-old male lower back pain TECHNIQUE: Contiguous axial scanning of the lumbar spine without IV contrast. Coronal and sagittal re constructions performed. CT DLP: 1514 mGycm Automated exposure control for dose reduction was used. FINDINGS: Osteopenia. Vertebral body heights are preserved. Trace grade 1 anterolisthesis at L1-L2. Baastrup's disease. Hypertrophic facet arthropathy throughout. Moderate degenerative disc disease throughout wit h disc space narrowing and bulging discs. Vacuum phenomenon at L5-S1. There may be mild narrowing of the spinal canal at L2-L3 and L3-L4. No high-grade canal compromise is evident. On the left, changes result in moderate to severe neuroforaminal stenosis at L5-S1 and mild at additi onal levels. On the right, changes result in moderate to severe neuroforaminal stenosis at L4-L5 and mild at addit ional levels. IMPRESSION: NO VERTEBRAL COMPRESSION COLLAPSE. DEGENERATIVE GRADE 1 RETROLISTHESIS AT L1-L2. 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 MODERATE TO SEVERE LEFT NEURAL FORAMINAL STENOSIS AT L5-S1 AND ON THE RIGHT AT L4-L5.
[2019-01-11 13:43] VITALS: BP 140/70
== END 2019-01-11 13:44 | disposition home or self-care (01) ==
LOC: EC 11:08
DX: S39.012A Strain of muscle, fascia and tendon of lower back, initial encounter (principal); M48.061 Spinal stenosis, lumbar region without neurogenic claudication; M46.86 Other specified inflammatory spondylopathies, lumbar region; I48.91 Unspecified atrial fibrillation; Z85.528 Personal history of other malignant neoplasm of kidney; Z96.652 Presence of left artificial knee joint; Z87.891 Personal history of nicotine dependence; Z79.899 Other long term (current) drug therapy; W19.XXXA Unspecified fall, initial encounter
CPT/HCPCS: 72131; 99284; 96372; J2270

== ENCOUNTER 2019-02-01 11:32 | Inpatient (IN) | payer MEDICARE, OTHER ==
[2019-02-01] MEDS ORDERED: SODIUM CHLORIDE 0.9% 1,000 ML IV STA (12:06)
[2019-02-01] MEDS ORDERED: ONDANSETRON 4 MG/2 ML VIAL IVP STA (13:03)
[2019-02-01] MEDS ORDERED: MORPHINE SULFATE 4 MG/ML SYRINGE IVP STA (13:03)
[2019-02-01 13:04] LABS: Anisocytosis Slight; Basophils % (A) 0 %; Eosinophils % (A) 1 %; HCT 29.1 % (39.0-53.0); HGB 9.3 gm/dL (13.0-17.5); Hypochromasia Slight; Lymphocytes # (A) 1.1 k/uL (1.0-4.8); Lymphocytes % (A) 27 %; MCH 31.7 pg (25.0-35.0); MCHC 32.1 g/dL (31.0-37.0); MCV 98.6 fL (80.0-100.0); Macrocytosis Slight; Mean Platelet Volume 8.9; Monocytes # (A) 0.3 k/uL (0-1.0); Monocytes % (A) 9 %; Neutrophils # (A) 2.4 k/uL (1.3-7.7); Neutrophils % (A) 60 %; Platelet Count 224 k/uL (150-450); RBC 2.95 m/uL (4.30-5.90); RDW 18.5 % (11.5-15.5); WBC 3.9 k/uL (3.8-10.6)
--- NOTE | 2019-02-01 13:15 | ED ---
Abdominal Pain HPI - General Chief Complaint: Abdominal Pain Stated Complaint: abdominal pain Time Seen by Provider: 02/01/19 11:59 Source: patient, RN notes reviewed Mode of arrival: ambulatory Limitations: no limitations - History of Present Illness Initial Comments: 68-year-old male presents emergency Department chief complaint of abdominal pain. Patient states started yesterday. Patient states it's in his mid abdomen and radiates across. Patient states that it comes and goes. He denies any chest pain or shortness of breath. Patient states his bowel movement have been intermittent constipation and diarrhea no melena hematochezia. Patient had multiple abdominal surgeries including bowel resection, colostomy with colostomy reversal, appendectomy, hernia repair. Patient states she's had a prior perforation. She denies any dysuria, hematuria, fevers or chills - Related Data Home Medications Medication Instructions Recorded Confirmed Allopurinol [Zyloprim] 300 mg PO DAILY 02/22/14 02/01/19 Cholecalciferol [Vitamin D3 (25 5,000 unit PO DAILY 07/26/14 02/01/19 Mcg = 1000 Iu)] Metoprolol Tartrate [Lopressor] 25 mg PO BID 06/28/17 02/01/19 Cyanocobalamin (Vitamin B-12) 1,000 mcg PO DAILY 01/03/19 02/01/19 [Vitamin B-12] Furosemide [Lasix] 40 mg PO DAILY 01/03/19 02/01/19 Ferrous Sulfate [Feosol] 325 mg PO DAILY 01/11/19 02/01/19 Baclofen [Lioresal] 20 mg PO BID PRN 02/01/19 02/01/19 Folic Acid 1 mg PO DAILY 02/01/19 02/01/19 HYDROcodone/APAP 7.5-325MG [[place] 1 tab PO TID PRN 02/01/19 02/01/19 7.5-325] Thiamine [Vitamin B-1] 100 mg PO BID 02/01/19 02/01/19 predniSONE See Taper PO DAILY 02/01/19 02/01/19 Previous Rx's Medication Instructions Recorded Multivitamin [Men's Multi-Vitamin] 1 tab PO DAILY #30 07/01/17 Apixaban [Eliquis] 5 mg PO BID #0 06/28/18 Pantoprazole Sodium [Protonix] 40 mg PO BID #60 tablet. 06/28/18 Potassium Chloride [K-Tab ER] 10 meq PO DAILY #14 tablet.er 11/29/18 Allergies Allergy/AdvReac Type Severity Reaction Status Date / Time No Known Allergies Allergy Verified 02/01/19 13:04 Review of Systems ROS Statement: Those systems with pertinent positive or pertinent negative responses have been documented in the HPI. ROS Other: All systems not noted in ROS Statement are negative. Past Medical History Past Medical History: Atrial Fibrillation, Blood Disorder, Cancer, Osteoarthritis (OA), Pulmonary Embolus (PE) Additional Past Medical History / Comment(s): Afib/RVR, pulmonary embolism L lung, pancreatitis multiple times, ETOH abuse, recent diagnosed with R renal carcinoma with sx, BPH, past R lung pneumo with chest tube, diverticulitis, benign colon polyps, arthritis multiple joints, abdominal hernias. Dizziness fall and right rib fractures 09/15/19, History of Any Multi-Drug Resistant Organisms: None Reported Past Surgical History: Bariatric Surgery, Bowel Resection, Cholecystectomy, Hernia Repair, Joint Replacement Additional Past Surgical History / Comment(s): Recent (2017) r kidney lesion cryoablation at [facility], 2013 bowel resection d/t viscus perf with colostomy later reversed , gastric sleeve converted to darrell-en-Y 08/2014-post op wound infection, paraesphogeal hiat hernia repair, R inguinal and umbilical hernia repairs, colonoscopies, L total knee arthroplasty., Past Anesthesia/Blood Transfusion Reactions: No Reported Reaction Past Psychological History: No Psychological Hx Reported Smoking Status: Former smoker Past Alcohol Use History: Occasional Past Drug Use History: None Reported - Past Family History Father Family Medical History: COPD, Myocardial Infarction ([place]) Additional Family Medical History / Comment(s): Father from a [place] at the age of 69yrs. Mother Family Medical History: Cancer Additional Family Medical History / Comment(s): Mother from ovarian cancer at the age of 69yrs. Sister(s) Family Medical History: Cancer Additional Family Medical History / Comment(s): at age 74yrs. Had breast cancer and a defibrillator General Exam Limitations: no limitations General appearance: alert, in no apparent distress Neck exam: Present: normal inspection. Absent: tenderness, meningismus, lymphadenopathy Respiratory exam: Present: normal lung sounds bilaterally. Absent: respiratory distress, wheezes, rales, rhonchi, stridor Cardiovascular Exam: Present: regular rate, normal rhythm, normal heart sounds. Absent: systolic murmur, diastolic murmur, rubs, gallop, clicks GI/Abdominal exam: Present: soft, tenderness (Moderate mid abdominal), normal bowel sounds. Absent: distended, guarding, rebound, rigid Back exam: Absent: CVA tenderness (R), CVA tenderness (L) Skin exam: Present: warm, dry, intact, normal color. Absent: rash Course Vital Signs 02/01/19 02/01/19 11:54 12:59 Temperature 98 F Pulse Rate 62 61 Respiratory 20 18 Rate Blood Pressure 129/78 115/60 O2 Sat by Pulse 99 98 Oximetry Medical Decision Making - Medical Decision Making 68-year-old male present for abdominal pain. CT shows possible early small bowel obstruction. Patient does have abdominal pain consistent with this. Patient also has back pain which shows evidence of compression fracture. Patient be admitted to medicine with consult to surgery prior surgeon Dr. Azul. - Lab Data Result diagrams: 02/01/19 12:45 02/01/19 12:45 Lab Results 02/01/19 02/01/19 02/01/19 Range/Units 12:45 12:45 12:45 WBC 3.9 (3.8-10.6) k/uL RBC 2.95 L (4.30-5.90) m/uL Hgb 9.3 L (13.0-17.5) gm/dL Hct 29.1 L (39.0-53.0) % MCV 98.6 (80.0-100.0) fL MCH 31.7 (25.0-35.0) pg MCHC 32.1 (31.0-37.0) g/dL RDW 18.5 H (11.5-15.5) % Plt Count 224 (150-450) k/uL Neutrophils % 60 % Lymphocytes % 27 % Monocytes % 9 % Eosinophils % 1 % Basophils % 0 % Neutrophils # 2.4 (1.3-7.7) k/uL Lymphocytes # 1.1 (1.0-4.8) k/uL Monocytes # 0.3 (0-1.0) k/uL Eosinophils # 0.0 (0-0.7) k/uL Basophils # 0.0 (0-0.2) k/uL Hypochromasia Slight Anisocytosis Slight Macrocytosis Slight Sodium 138 (137-145) mmol/L Potassium 4.1 (3.5-5.1) mmol/L Chloride 108 H (98-107) mmol/L Carbon Dioxide 26 (22-30) mmol/L Anion Gap 4 mmol/L BUN 19 (9-20) mg/dL Creatinine 0.88 (0.66-1.25) mg/dL Est GFR (CKD-EPI)AfAm >90 (>60 ml/min/1.73 sqM) Est GFR (CKD-EPI)NonAf 89 (>60 ml/min/1.73 sqM) Glucose 87 (74-99) mg/dL Plasma Lactic Acid Sung 1.8 (0.7-2.0) mmol/L Calcium 8.6 (8.4-10.2) mg/dL Total Bilirubin 0.8 (0.2-1.3) mg/dL AST 81 H (17-59) U/L ALT 39 (21-72) U/L Alkaline Phosphatase 245 H (38-126) U/L Total Protein 5.3 L (6.3-8.2) g/dL Albumin 2.3 L (3.5-5.0) g/dL Lipase 489 H (23-300) U/L Urine Color Urine Appearance (Clear) Urine pH (5.0-8.0) Ur Specific [place] (1.001-1.035) Urine Protein (Negative) Urine Glucose (UA) (Negative) Urine Ketones (Negative) Urine Blood (Negative) Urine Nitrite (Negative) Urine Bilirubin (Negative) Urine Urobilinogen (<2.0) mg/dL Ur Leukocyte Esterase (Negative) 02/01/19 Range/Units 12:45 WBC (3.8-10.6) k/uL RBC (4.30-5.90) m/uL Hgb (13.0-17.5) gm/dL Hct (39.0-53.0) % MCV (80.0-100.0) fL MCH (25.0-35.0) pg MCHC (31.0-37.0) g/dL RDW (11.5-15.5) % Plt Count (150-450) k/uL Neutrophils % % Lymphocytes % % Monocytes % % Eosinophils % % Basophils % % Neutrophils # (1.3-7.7) k/uL Lymphocytes # (1.0-4.8) k/uL Monocytes # (0-1.0) k/uL Eosinophils # (0-0.7) k/uL Basophils # (0-0.2) k/uL Hypochromasia Anisocytosis Macrocytosis Sodium (137-145) mmol/L Potassium (3.5-5.1) mmol/L Chloride (98-107) mmol/L Carbon Dioxide (22-30) mmol/L Anion Gap mmol/L BUN (9-20) mg/dL Creatinine (0.66-1.25) mg/dL Est GFR (CKD-EPI)AfAm (>60 ml/min/1.73 sqM) Est GFR (CKD-EPI)NonAf (>60 ml/min/1.73 sqM) Glucose (74-99) mg/dL Plasma Lactic Acid Sung (0.7-2.0) mmol/L Calcium (8.4-10.2) mg/dL Total Bilirubin (0.2-1.3) mg/dL AST (17-59) U/L ALT (21-72) U/L Alkaline Phosphatase (38-126) U/L Total Protein (6.3-8.2) g/dL Albumin (3.5-5.0) g/dL Lipase (23-300) U/L Urine Color Light Yellow Urine Appearance Clear (Clear) Urine pH 5.0 (5.0-8.0) Ur Specific [place] 1.010 (1.001-1.035) Urine Protein Negative (Negative) Urine Glucose (UA) Negative (Negative) Urine Ketones Negative (Negative) Urine Blood Negative (Negative) Urine Nitrite Negative (Negative) Urine Bilirubin Negative (Negative) Urine Urobilinogen <2.0 (<2.0) mg/dL Ur Leukocyte Esterase Negative (Negative) Disposition Clinical Impression: Partial small bowel obstruction, Compression fracture, Abdominal pain Disposition: ADMITTED IP TO THIS [facility] Condition: Fair Referrals: Rebekah Hood DO [Primary Care Provider] - 1-2 days
[2019-02-01 13:18] LABS: Albumin 2.3 g/dL (3.5-5.0); Anion Gap 4 mmol/L; Blood Urea Nitrogen 19 mg/dL (9-20); Calcium 8.6 mg/dL (8.4-10.2); Carbon Dioxide 26 mmol/L (22-30); Chloride 108 mmol/L (98-107); Glucose 87 mg/dL (74-99); Lipase 489 U/L (23-300); Sodium 138 mmol/L (137-145); Total Bilirubin 0.8 mg/dL (0.2-1.3); Total Protein 5.3 g/dL (6.3-8.2)
[2019-02-01 13:22] LABS: Appearance,Urine Clear (Clear); Bilirubin,Urine Negative (Negative); Blood,Urine Negative (Negative); Color,Urine Light Yellow; Glucose,Urine (UA) Negative (Negative); Ketones,Urine Negative (Negative); Leukocyte Esterase,Urine Negative (Negative); Nitrite,Urine Negative (Negative); Protein,Urine Negative (Negative); Urobilinogen,Urine <2.0 mg/dL (<2.0)
[2019-02-01 13:33] LABS: ALT 39 U/L (21-72); AST 81 U/L (17-59); Alkaline Phosphatase 245 U/L (38-126); Potassium 4.1 mmol/L (3.5-5.1)
--- NOTE | 2019-02-01 14:15 | CT ---
EXAMINATION TYPE: CT abdomen pelvis w con DATE OF EXAM: 02/01/2019 COMPARISON: 11/21/2018 HISTORY: 68-year-old male generalized abdominal pain with nausea. TECHNIQUE: Contiguous axial scanning of the abdomen and pelvis following administration of 100 ml Iso ashly 300 IV contrast. Delayed images through the kidneys and coronal/sagittal reconstructions perform ed. CT DLP: 1657.8 mGycm Automated exposure control for dose reduction was used. FINDINGS: Heart upper limits of normal in size without pericardial effusion. Chronic healed rib fracture deform ities on the right with right basilar pleural-parenchymal scarring. Postsurgical changes seen to relate to prior Bibi-en-Y gastric bypass with resection of most of the s tomach. There is an umbilical hernia with the abdominal wall defect measuring 5.7 cm wide and the hernia sac containing nonobstructed small bowel loops measuring 10.9 cm wide. This is relatively stable to prior exam. No focal lesion or biliary ductal dilatation. Portal venous system is patent. Cholecystectomy clips. Unchanged 1.3 cm right adrenal nodularity, exophytic 1.8 cm hypodense lesion posterior right kidney, and a few hypodense lesions within the left kidney measuring up to 1.8 cm. The kidney lesions are lolly pected to represent cysts. Stable 8 mm nonobstructive left renal calculus. No hydronephrosis. No suspicious calculus along the course of either ureter. Atrophic pancreas, left adrenal gland, and spleen show no gross abnormality. Mildly dilated small bowel loops anteriorly in the abdomen with some collapsed distal small bowel loo ps. Possible transition point at a prior small bowel anastomosis anterior left upper abdomen, axial i mage 28. Small bowel loops are dilated up to 3.5 cm. There is left colonic diverticulosis without pericolonic inflammatory change. Patulous anastomosis at the mid transverse colon. Extensive proliferation of the retroperitoneal fat is unchanged. Bladder urine distended. Multiple pelvic phleboliths. Prostate gland mildly enlarged 4.9 cm wide. No abnormal fluid collection in the pelvis or pelvic lymphadenopathy. Bones: There is some vague sclerosis seen at the bilateral femoral heads relatively similar prior exa m. Early AVN is difficult to exclude. Degenerative changes mid to lower lumbar spine. T10 vertebral c ompression fracture new from 11/21/2018 and not seen on the claims clerk image 01/11/2019. There is 50% overall anterior height loss without retropulsion into the spinal canal. IMPRESSION: 1. SMALL BOWEL LOOPS DILATED UP TO 3.7 CM POSSIBLE TRANSITION POINT AND A PRIOR SMALL BOWEL ANASTOMOS IS IN THE ANTERIOR LEFT MID ABDOMEN. EARLY/PARTIAL SMALL BOWEL OBSTRUCTION DIFFICULT TO EXCLUDE AT TH IS TIME. 2. T10 VERTEBRAL COMPRESSION FRACTURE WITH 50% ANTERIOR HEIGHT LOSS. NO RETROPULSION INTO THE SPINAL CANAL. CORRELATE FOR AN ACUTE TO SUBACUTE FRACTURE. THIS WAS NOT SEEN ON THE ATTENDING ANESTHESIOLOGIST IMAGE OF THE [address] 3. EXTENSIVE INTRA-ABDOMINAL FATTY PROLIFERATION, SEVERE WITHIN THE RETROPERITONEUM. CORRELATE FOR PO SSIBLE HORMONAL OR ENDOCRINE ETIOLOGY INCLUDING BUT NOT LIMITED TO DIABETES OR MING'S. 4. LEFT SIDED COLONIC DIVERTICULOSIS WITHOUT EVIDENCE FOR ACUTE DIVERTICULITIS. 8 MM NONOBSTRUCTIVE L EFT RENAL CALCULUS.
[2019-02-01] MEDS ORDERED: MORPHINE SULFATE 4 MG/ML SYRINGE IV PRN (14:41)
[2019-02-01] MEDS ORDERED: NALOXONE 0.4 MG/ML 1 ML VIAL IV PRN (14:41)
[2019-02-01] MEDS ORDERED: ONDANSETRON 4 MG/2 ML VIAL IVP PRN (14:41)
[2019-02-01] MEDS: SODIUM CHLORIDE 0.9% 1,000 ML IV SCH (15:07)
[2019-02-01 16:50] VITALS: BMI 35.5
[2019-02-01] MEDS: HYDROmorphone 0.5 MG/0.5 ML SYRINGE IVP PRN (17:21)
[2019-02-01] MEDS ORDERED: HYDROmorphone 0.5 MG/0.5 ML SYRINGE ONE (23:30)
[2019-02-02] MEDS ORDERED: MORPHINE SULFATE 4 MG/ML SYRINGE ONE (02:50)
[2019-02-02] MEDS: HYDROmorphone 0.5 MG/0.5 ML SYRINGE IVP PRN ×4 (06:15→19:40)
[2019-02-02] MEDS: SODIUM CHLORIDE 0.9% 1,000 ML IV SCH ×2 (06:17→16:07)
--- NOTE | 2019-02-02 10:34 | P.HPIM ---
History of Present Illness H&P Date: 02/01/19 Chief Complaint: Nausea vomiting and abdominal pain Patient is a 68-year-old male with a known history of atrial fibrillation on anticoagulation, history of pulmonary embolism, osteoarthritis, alcohol abuse, history of pancreatitis and recently diagnosed with right renal carcinoma with sx, history of gastric sleeve converted to darrell-en-Y 08/2014-post op wound infection previous history of foul obstruction came to the hospital with complaints of abdominal pain. Patient says that abdominal pain has started since yesterday mainly in the mid abdomen and radiates across the abdominal wall to the size. Patient did have an episode of vomiting. Patient has been having constant abdominal pain which made him come to the hospital. Otherwise denied any compressive chest pain or shortness of breath. Patient has been having intermittent constipation and diarrhea. Denied any hematemesis or melena. Patient did have multiple abdominal surgeries including bowel resection, colostomy colostomy reversal and appendectomy and hernia repair. Patient did have a history of prior bowel perforation. Otherwise denied any fever or chills. No dysuria or hematuria. Denied any recent illnesses. CT of abdomen pelvis showed small bowel loops dilated up to 3.7 cm possible transposition point and a prior small bowel anastomosis in the anterior left and mid abdomen. A LEEP partial small bowel obstruction difficult to exclude at this time. T10 vertebral compression fracture with 50% anterior height loss. No retropulsion into the spinal canal. Correlate for an acute to subacute fracture. This was not seen in the case briefer image of the 01/11/[address] Extensive intra-abdominal fatty proliferation, severe within the retroperitoneum. Correlate for possible hormonal or endocrine etiology including but not limited to diabetes or Granger's. Left-sided: He can divertic ulosis without evidence for acute diverticulitis. 8 mm nonobstructive left renal calculus. Review of Systems Constitutional: Patient denies any fever or chills . No generalized weakness or weight loss. Abdomen: Does have abdominal pain and nausea and episodes of vomiting. No diarrhea.. Cardiovascular: Patient denies any chest pain or short of breath no palpitations. Respiratory: patient denied any cough is from production. No shortness of shawn ath Neurologic: Patient denied any numbness or tingling headache. Musculoskeletal: Patient denies any complaints of joint swelling or deformity. Skin: Negative Psychiatric: Negative Endocrine: No heat or cold intolerance. No recent weight gain. Genitourinary: No dysuria or hematuria. All other 14 point ROS negative except the above Past Medical History Past Medical History: Atrial Fibrillation, Blood Disorder, Cancer, Osteoarthritis (OA), Pulmonary Embolus (PE) Additional Past Medical History / Comment(s): Afib/RVR, pulmonary embolism L lung, pancreatitis multiple times, ETOH abuse, recent diagnosed with R renal ca rcinoma with sx, BPH, past R lung pneumo with chest tube, diverticulitis, benign colon polyps, arthritis multiple joints, abdominal hernias. Dizziness fall and right rib fractures 09/15/19, History of Any Multi-Drug Resistant Organisms: None Reported Past Surgical History: Bariatric Surgery, Bowel Resection, Cholecystectomy, Hernia Repair, Joint Replacement Additional Past Surgical History / Comment(s): Recent (2017) r kidney lesion cryoablation at [facility], 2012 bowel resection d/t viscus perf with colostomy later reversed , gastric sleeve converted to darrell-en-Y 08/2014-post op wound infection, paraesphogeal hiat hernia repair, R inguinal and umbilical hernia repairs, colonoscopies, L total knee arthroplasty., Past Anesthesia/Blood Transfusion Reactions: No Reported Reaction Smoking Status: Former smoker - Past Family History Father Family Medical History: COPD, Myocardial Infarction ([place]) Additional Family Medical History / Comment(s): Father from a AL at the age of 69yrs. Mother Family Medical History: Cancer Additional Family Medical History / Comment(s): Mother from ovarian cancer at the age of 69yrs. Sister(s) Family Medical History: Cancer Additional Family Medical History / Comment(s): at age 74yrs. Had breast cancer and a defibrillator Medications and Allergies Home Medications Medication Instructions Recorded Confirmed Type Allopurinol [Zyloprim] 300 mg PO DAILY 02/22/14 02/01/19 History Cholecalciferol [Vitamin D3 (25 5,000 unit PO DAILY 07/26/14 02/01/19 History Mcg = 1000 Iu)] Metoprolol Tartrate [Lopressor] 25 mg PO BID 06/28/17 02/01/19 History Multivitamin [Men's Multi-Vitamin] 1 tab PO DAILY #30 07/01/17 02/01/19 Rx Apixaban [Eliquis] 5 mg PO BID #0 06/28/18 02/01/19 Rx Pantoprazole Sodium [Protonix] 40 mg PO BID #60 tablet.dr 06/28/18 02/01/19 Rx Potassium Chloride [K-Tab ER] 10 meq PO DAILY #14 tablet.er 11/29/18 02/01/19 Rx Cyanocobalamin (Vitamin B-12) 1,000 mcg PO DAILY 01/03/19 02/01/19 History [Vitamin B-12] Furosemide [Lasix] 40 mg PO DAILY 01/03/19 02/01/19 History Ferrous Sulfate [Feosol] 325 mg PO DAILY 01/11/19 02/01/19 History Baclofen [Lioresal] 20 mg PO BID PRN 02/01/19 02/01/19 History Folic Acid 1 mg PO DAILY 02/01/19 02/01/19 History HYDROcodone/APAP 7.5-325MG [[place] 1 tab PO TID PRN 02/01/19 02/01/19 History 7.5-325] Thiamine [Vitamin B-1] 100 mg PO BID 02/01/19 02/01/19 History predniSONE See Taper PO DAILY 02/01/19 02/01/19 History Allergies Allergy/AdvReac Type Severity Reaction Status Date / Time No Known Allergies Allergy Verified 02/01/19 13:04 Physical Exam Vitals: Vital Signs Temp Pulse Pulse Pulse Resp BP BP 02/02/19 08:34 97.6 F 62 20 143/73 02/01/19 19:45 97.5 F L 58 L 16 104/69 02/01/19 16:41 97.8 F 84 20 100/60 02/01/19 15:56 97.5 F L 61 18 123/59 02/01/19 13:40 114/80 02/01/19 13:30 109/64 02/01/19 13:20 115/60 02/01/19 13:10 115/60 02/01/19 13:00 115/60 02/01/19 12:59 61 18 115/60 02/01/19 12:58 02/01/19 11:54 98 F 62 20 129/78 Pulse Ox 02/02/19 08:34 98 02/01/19 19:45 97 02/01/19 16:41 02/01/19 15:56 98 02/01/19 13:40 02/01/19 13:30 02/01/19 13:20 99 02/01/19 13:10 98 02/01/19 13:00 98 02/01/19 12:59 98 02/01/19 12:58 98 02/01/19 11:54 99 Intake and Output 02/01/19 02/02/19 02/02/19 22:59 06:59 14:59 Intake Total 225 525 Balance 225 525 Intake: Intake, IV Titration 225 525 Amount Sodium Chloride 0.9% 1, 225 525 000 ml @ 75 mls/hr IV . [id number] [facility] Rx#:[id number] PHYSICAL EXAMINATION: Patient is lying in the bed comfortably, no acute distress, awake alert and oriented.. HEENT: Normocephalic. Neck is supple. Pupils reactive. Nostrils clear. Oral cavity is moist. Ears reveal no drainage. Neck reveals no JVD, carotid bruits, or thyromegaly. CHEST EXAMINATION: Trachea is central. Symmetrical expansion. Lung valdez clear to auscultation and percussion. CARDIAC: Normal S1, S2 with no gallops. No murmurs ABDOMEN: Soft. Bowel sounds sent, mild lower abdominal tenderness. No guarding no rigidity.. No organomegaly. No abdominal bruits. Extremities: reveal no edema. No clubbing or cyanosis Neurologically awake, alert, oriented x3 with well-coordinated movements. No focal deficits noted Skin: No rash or skin lesions. Psychiatric: Coperative. Nonsuicidal Musculoskeletal: No joint swelling or deformity. Normal range of motion. Results CBC & Chem 7: 02/01/19 12:45 02/01/19 12:45 Labs: Abnormal Lab Results - Last 24 Hours (Table) 02/01/19 02/01/19 Range/Units 12:45 12:45 RBC 2.95 L (4.30-5.90) m/uL Hgb 9.3 L (13.0-17.5) gm/dL Hct 29.1 L (39.0-53.0) % RDW 18.5 H (11.5-15.5) % Chloride 108 H (98-107) mmol/L AST 81 H (17-59) U/L Alkaline Phosphatase 245 H (38-126) U/L Total Protein 5.3 L (6.3-8.2) g/dL Albumin 2.3 L (3.5-5.0) g/dL Lipase 489 H (23-300) U/L Thrombosis Risk Factor Assmnt - DVT/VTE Prophylaxis DVT/VTE Prophylaxis: Pharmacologic Prophylaxis ordered, Mechanical Prophylaxis ordered - Choose All That Apply Any of the Below Risk Factors Present?: Yes Each Factor Represents 1 point: Swollen legs (current), Varicose veins Each Risk Factor Represents 2 Points: Age 61-74 years, Malignancy Each Risk Factor Represents 3 Points: Family history of DVT/PE, History of DVT/PE Other congenital or acquired thrombophilia - If yes, enter type in comment: No Thrombosis Risk Factor Assessment Total Risk Factor Score: 12 Thrombosis Risk Factor Assessment Level: High Risk Assessment and Plan Assessment: Abdominal pain secondary to partial small bowel obstruction. T10 vertebral compression fracture with 50% anterior height loss. Left-sided colonic diverticulosis Atrial fibrillation paroxysmal currently on anticoagulation with a decrease Osteoarthritis of multiple joints History of PE Alcohol abuse Previous history of pancreatitis Recent right kidney lesion cryoablation at [facility] in 2018 BPH History of multiple abdominal surgeries including bowel resection d/t viscus perf with colostomy later reversed , gastric sleeve converted to darrell-en-Y 08/2014-post op wound infection, paraesphogeal hiat hernia repair, R inguinal and umbilical hernia repairs, colonoscopies. DVT prophylaxis Plan: Patient will be continued on IV fluids. Nothing by mouth. General surgery consult placed. Medical management for nausea and vomiting. Pain management with IV Dilaudid. Continue with supportive management at this time and follow closely. Further recommendations based on the clinical course. Time with Patient: Greater than 30
[2019-02-02 11:11] LABS: ALT 32 U/L (21-72); AST 51 U/L (17-59); Albumin 2.2 g/dL (3.5-5.0); Alkaline Phosphatase 268 U/L (38-126); Anion Gap 3 mmol/L; Blood Urea Nitrogen 12 mg/dL (9-20); Calcium 8.2 mg/dL (8.4-10.2); Carbon Dioxide 30 mmol/L (22-30); Chloride 109 mmol/L (98-107); Glucose 73 mg/dL (74-99); Potassium 3.1 mmol/L (3.5-5.1); Sodium 142 mmol/L (137-145); Total Bilirubin 0.8 mg/dL (0.2-1.3); Total Protein 5.1 g/dL (6.3-8.2)
--- NOTE | 2019-02-02 13:25 | P.GSCN ---
History of Present Illness Consult date: 02/02/19 Reason for Consult: SBO Requesting physician: Jamal Steele History of present illness: CHIEF COMPLAINT: abdominal pain HISTORY OF PRESENT ILLNESS: 68-year-old male who presented to the ER with a chief complaint of abdominal pain. Patient has a history of multiple abdominal s urgeries including bowel resection due to perforated colon with colostomy, colostomy reversal, hernia repairs, cholecystectomy and Bibi-en-Y. Patient reports generalized abdominal pain since Thursday of this week. He reports nausea and dry heaves earlier in the week which have resolved. He currently reports pain near mid abdomen and left upper and lower quadrants. He reports abdominal bloating. Small bowel movement yesterday that was normal in characteristics. PAST MEDICAL HISTORY: See list. PAST SURGICAL HISTORY: See list. SOCIAL HISTORY: No illicit drug use. REVIEW OF SYSTEMS: CONSTITUTIONAL: Denies fever or chills. HEENT: Denies blurred vision, vision changes, or eye pain. Denies hemoptysis CARDIOVASCULAR: Denies chest pain or pressure. RESPIRATORY: No shortness of breath. GASTROINTESTINAL: Refer to HPI for pertinent findings HEMATOLOGIC: Denies bleeding disorders. GENITOURINARY: Denies any blood in urine. SKIN: Denies pruitis. Denies rash. PHYSICAL EXAM: VITAL SIGNS: Reviewed. GENERAL: Well-developed in no acute distress. HEENT: No sclera icterus. Extraocular movements grossly intact. Moist buccal mucosa. Head is atraumatic, normocephalic. ABDOMEN: Soft. Bloated. Positive bowel sounds. Healed midline abdominal scars. Pain and tenderness near umbilicus and left upper and lower quadrants. NEUROLOGIC: Alert and oriented. Cranial nerves II through XII grossly intact. IMAGING: CT abdomen/pelvis: Small bowel loops dilated up to 3.7 cm possible transition point and prior small bowel anastomosis and anterior left mid abdomen. Early partial small bowel obstruction difficult to exclude. Left-sided colonic diverticulosis without evidence for acute diverticulitis. ASSESSMENT: 1. Abdominal pain 2. Possible small bowel obstruction 3. History of multiple abdominal surgeries including bowel resection due to perforated colon with colostomy, colostomy reversal, hernia repairs, cholecystectomy and Bibi-en-Y PLAN: 1. Defer NG tube insertion at this time 2. Continue NPO 3. Repeat CT with oral contrast 4. Abdominal xray in the AM 5. No surgical intervention at this time. Will continue to follow. Nurse practitioner note has been reviewed by physician. Signing provider agrees with the documented findings, assessment, and plan of care. Past Medical History Past Medical History: Atrial Fibrillation, Blood Disorder, Cancer, Osteoarthritis (OA), Pulmonary Embolus (PE) Additional Past Medical History / Comment(s): Afib/RVR, pulmonary embolism L lung, pancreatitis multiple times, ETOH abuse, recent diagnosed with R renal carcinoma with sx, BPH, past R lung pneumo with chest tube, diverticulitis, benign colon polyps, arthritis multiple joints, abdominal hernias. Dizziness fall and right rib fractures 09/15/19, History of Any Multi-Drug Resistant Organisms: None Reported Past Surgical History: Bariatric Surgery, Bowel Resection, Cholecystectomy, Hernia Repair, Joint Replacement Additional Past Surgical History / Comment(s): Recent (2017) r kidney lesion cryoablation at [facility], 2013 bowel resection d/t viscus perf with colostomy later reversed , gastric sleeve converted to bibi-en-Y 08/2014-post op wound infection, paraesphogeal hiat hernia repair, R inguinal and umbilical hernia repairs, colonoscopies, L total knee arthroplasty., Past Anesthesia/Blood Transfusion Reactions: No Reported Reaction Smoking Status: Former smoker - Past Family History Father Family Medical History: COPD, Myocardial Infarction ([place]) Additional Family Medical History / Comment(s): Father from a [place] at the age of 69yrs. Mother Family Medical History: Cancer Additional Family Medical History / Comment(s): Mother from ovarian cancer at the age of 69yrs. Sister(s) Family Medical History: Cancer Additional Family Medical History / Comment(s): at age 74yrs. Had breast cancer and a defibrillator Medications and Allergies Home Medications Medication Instructions Recorded Confirmed Type Allopurinol [Zyloprim] 300 mg PO DAILY 02/22/14 02/01/19 History Cholecalciferol [Vitamin D3 (25 5,000 unit PO DAILY 07/26/14 02/01/19 History Mcg = 1000 Iu)] Metoprolol Tartrate [Lopressor] 25 mg PO BID 06/28/17 02/01/19 History Multivitamin [Men's Multi-Vitamin] 1 tab PO DAILY #30 07/01/17 02/01/19 Rx Apixaban [Eliquis] 5 mg PO BID #0 06/28/18 02/01/19 Rx Pantoprazole Sodium [Protonix] 40 mg PO BID #60 tablet.dr 06/28/18 02/01/19 Rx Potassium Chloride [K-Tab ER] 10 meq PO DAILY #14 tablet.er 11/29/18 02/01/19 Rx Cyanocobalamin (Vitamin B-12) 1,000 mcg PO DAILY 01/03/19 02/01/19 History [Vitamin B-12] Furosemide [Lasix] 40 mg PO DAILY 01/03/19 02/01/19 History Ferrous Sulfate [Feosol] 325 mg PO DAILY 01/11/19 02/01/19 History Baclofen [Lioresal] 20 mg PO BID PRN 02/01/19 02/01/19 History Folic Acid 1 mg PO DAILY 02/01/19 02/01/19 History HYDROcodone/APAP 7.5-325MG [[place] 1 tab PO TID PRN 02/01/19 02/01/19 History 7.5-325] Thiamine [Vitamin B-1] 100 mg PO BID 02/01/19 02/01/19 History predniSONE See Taper PO DAILY 02/01/19 02/01/19 History Allergies Allergy/AdvReac Type Severity Reaction Status Date / Time No Known Allergies Allergy Verified 02/01/19 13:04 Surgical - Exam Vital Signs Temp Pulse Resp BP Pulse Ox 98 F 62 20 129/78 99 02/01/19 11:54 02/01/19 11:54 02/01/19 11:54 02/01/19 11:54 02/01/19 11:54 Results - Labs 02/01/19 12:45 02/02/19 10:38 Abnormal Lab Results - Last 24 Hours (Table) 02/01/19 02/01/19 02/02/19 Range/Units 12:45 12:45 10:38 RBC 2.95 L (4.30-5.90) m/uL Hgb 9.3 L (13.0-17.5) gm/dL Hct 29.1 L (39.0-53.0) % RDW 18.5 H (11.5-15.5) % Potassium 3.1 L (3.5-5.1) mmol/L Chloride 108 H 109 H (98-107) mmol/L Glucose 73 L (74-99) mg/dL Calcium 8.2 L (8.4-10.2) mg/dL AST 81 H (17-59) U/L Alkaline Phosphatase 245 H 268 H (38-126) U/L Total Protein 5.3 L 5.1 L (6.3-8.2) g/dL Albumin 2.3 L 2.2 L (3.5-5.0) g/dL Lipase 489 H (23-300) U/L Diabetes panel 02/01/19 02/02/19 Range/Units 12:45 10:38 Sodium 138 142 (137-145) mmol/L Potassium 4.1 3.1 L (3.5-5.1) mmol/L Chloride 108 H 109 H (98-107) mmol/L Carbon Dioxide 26 30 (22-30) mmol/L BUN 19 12 (9-20) mg/dL Creatinine 0.88 0.76 (0.66-1.25) mg/dL Glucose 87 73 L (74-99) mg/dL Calcium 8.6 8.2 L (8.4-10.2) mg/dL AST 81 H 51 (17-59) U/L ALT 39 32 (21-72) U/L Alkaline Phosphatase 245 H 268 H (38-126) U/L Total Protein 5.3 L 5.1 L (6.3-8.2) g/dL Albumin 2.3 L 2.2 L (3.5-5.0) g/dL Calcium panel 02/01/19 02/02/19 Range/Units 12:45 10:38 Calcium 8.6 8.2 L (8.4-10.2) mg/dL Albumin 2.3 L 2.2 L (3.5-5.0) g/dL Pituitary panel 02/01/19 02/02/19 Range/Units 12:45 10:38 Sodium 138 142 (137-145) mmol/L Potassium 4.1 3.1 L (3.5-5.1) mmol/L Chloride 108 H 109 H (98-107) mmol/L Carbon Dioxide 26 30 (22-30) mmol/L BUN 19 12 (9-20) mg/dL Creatinine 0.88 0.76 (0.66-1.25) mg/dL Glucose 87 73 L (74-99) mg/dL Calcium 8.6 8.2 L (8.4-10.2) mg/dL Adrenal panel 02/01/19 02/02/19 Range/Units 12:45 10:38 Sodium 138 142 (137-145) mmol/L Potassium 4.1 3.1 L (3.5-5.1) mmol/L Chloride 108 H 109 H (98-107) mmol/L Carbon Dioxide 26 30 (22-30) mmol/L BUN 19 12 (9-20) mg/dL Creatinine 0.88 0.76 (0.66-1.25) mg/dL Glucose 87 73 L (74-99) mg/dL Calcium 8.6 8.2 L (8.4-10.2) mg/dL Total Bilirubin 0.8 0.8 (0.2-1.3) mg/dL AST 81 H 51 (17-59) U/L ALT 39 32 (21-72) U/L Alkaline Phosphatase 245 H 268 H (38-126) U/L Total Protein 5.3 L 5.1 L (6.3-8.2) g/dL Albumin 2.3 L 2.2 L (3.5-5.0) g/dL
[2019-02-02] MEDS: IOPAMIDOL-300 CONTRAST 30 ML VIAL (ORAL USE) PO PRN ×2 (13:54→14:49)
[2019-02-02] MEDS: HEPARIN SODIUM,PORCINE 5,000 UNIT/ML 1 ML VIAL SQ SCH (16:02)
--- NOTE | 2019-02-02 16:30 | CT ---
EXAMINATION TYPE: CT abdomen pelvis wo con DATE OF EXAM: 02/02/2019 HISTORY: Small Bowel Obstruction CT DLP: 1117.4 mGycm. Automated Exposure Control for Dose Reduction was Utilized. TECHNIQUE: CT scan of the abdomen and pelvis is performed with oral but without IV contrast. COMPARISON: CT from one day earlier. FINDINGS: Within the limitations of a non-contrast study, the following observations are made. LUNG BASES: There are old rib fracture deformities redemonstrated. LIVER/GB: Heterogeneous hypodense liver consistent with diffuse fatty infiltration is redemonstrated. Cholecystectomy clips are again seen. PANCREAS: Mild generalized fat replaced atrophy of pancreas redemonstrated.. SPLEEN: No significant abnormality is seen. ADRENALS: No significant abnormality is seen. KIDNEYS: Cortical thinning in both kidneys is seen. Some retained contrast from recent CT noted in co llecting systems. A few small simple appearing cysts are redemonstrated. Scattered pelvic phleboliths are seen. Contrast from recent CT fills bladder. BOWEL: The oral contrast does not reach level of terminal ileum making evaluation distal bowel subopt imal. Contrast-filled small bowel loops in the abdomen centrally are redemonstrated. There is marked prominence of the retroperitoneal fat occupying two thirds of the posterior abdomen. Scattered air-fl uid levels are seen. No suspicious new greater than 3 cm dilatation is noted. There is no suspicious colonic dilatation. Surgical sutures in the anterior to mid upper abdomen are redemonstrated. No sign ificant or suspicious obstruction at this level. Some distal colonic diverticula are redemonstrated. GENITAL ORGANS: No gross abnormality seen. LYMPH NODES: No greater than 1cm abdominal or pelvic lymph nodes are appreciated. OSSEOUS STRUCTURES: Moderate disc space narrowing and vacuum disc phenomenon lower lumbar levels. Mil d to moderate chronic compression fracture T10 level with sclerosis.. OTHER: No significant additional abnormality is seen. IMPRESSION: Redemonstration of severe retroperitoneal lipomatosis occupying nearly 2/3 of the abdomen deviating all bowel loops anteriorly and centrally. Perhaps mild partial small bowel obstruction. No transition point. No complete obstruction is felt present. No significant change or improvement from recent CT.
[2019-02-02] MEDS ORDERED: POTASSIUM CHLORIDE ER 20 MEQ TAB.ER PO STA (19:33)
[2019-02-02] MEDS: METOPROLOL TARTRATE 25 MG TAB PO SCH (20:06)
[2019-02-03] MEDS: HEPARIN SODIUM,PORCINE 5,000 UNIT/ML 1 ML VIAL SQ SCH ×3 (00:17→16:49)
[2019-02-03] MEDS: HYDROmorphone 0.5 MG/0.5 ML SYRINGE IVP PRN ×6 (00:17→23:59)
--- NOTE | 2019-02-03 08:03 | XR ---
EXAMINATION TYPE: XR abdomen 2V DATE OF EXAM: 02/03/2019 COMPARISON: 02/02/2019 HISTORY: Bowel obstruction TECHNIQUE: One view abdominal series FINDINGS: Dilated bowel loops are again noted throughout the abdomen. Contrast is seen within the colon. Bilate ral lower lobe infiltrate and small effusion. Calcifications in pelvis are likely vascular. Degenerat heriberto change of the spine. Chronic rib cage deformities noted. Previous surgical clips noted. IMPRESSION: 1. Nonspecific abdomen with persistent dilated bowel loops. Partial obstruction versus ileus. 2. Bilateral lower lobe infiltrate and small effusion.
[2019-02-03] MEDS: ALLOPURINOL 300 MG TAB PO SCH (09:20)
[2019-02-03] MEDS: METOPROLOL TARTRATE 25 MG TAB PO SCH ×2 (09:20→21:37)
[2019-02-03] MEDS: SODIUM CHLORIDE 0.9% 1,000 ML IV SCH ×2 (09:22→21:38)
[2019-02-03 09:52] LABS: Anion Gap 3 mmol/L; Blood Urea Nitrogen 9 mg/dL (9-20); Calcium 8.1 mg/dL (8.4-10.2); Carbon Dioxide 26 mmol/L (22-30); Chloride 110 mmol/L (98-107); Glucose 65 mg/dL (74-99); Sodium 139 mmol/L (137-145)
[2019-02-03 10:15] LABS: Potassium 3.8 mmol/L (3.5-5.1)
--- NOTE | 2019-02-03 11:56 | P.PN ---
Subjective Progress Note Date: 02/03/19 CHIEF COMPLAINT: abdominal pain HISTORY OF PRESENT ILLNESS: Patient seen and examined at the bedside. Patient denies abdominal pain. He reports significant back pain this morning. Patient denies nausea or vomiting. Patient reports having a small nonbloody bowel movement yesterday. He is passing flatus this morning. PHYSICAL EXAM: VITAL SIGNS: Reviewed. GENERAL: Well-developed in no acute distress. HEENT: No sclera icterus. Extraocular movements grossly intact. Moist buccal mucosa. Head is atraumatic, normocephalic. ABDOMEN: Soft. Positive bowel sounds. Healed midline abdominal scars. Minimal tenderness. NEUROLOGIC: Alert and oriented. Cranial nerves II through XII grossly intact. ASSESSMENT: 1. Abdominal pain 2. Possible small bowel obstruction, resolved 3. History of multiple abdominal surgeries including bowel resection due to perforated colon with colostomy, colostomy reversal, hernia repairs, cholecystectomy and Bibi-en-Y PLAN: 1. May begin clear liquid diet. Advance as tolerated 2. No surgical intervention recommended 3. Stable from a surgical perspective Nurse practitioner note has been reviewed by physician. Signing provider agrees with the documented findings, assessment, and plan of care. Objective - Vital Signs Vital signs: Vital Signs Temp 98.0 F 02/03/19 09:13 Pulse 63 02/03/19 09:13 Resp 16 02/03/19 09:13 BP 134/80 02/03/19 09:13 Pulse Ox 95 02/03/19 09:13 Intake & Output 02/02/19 02/03/19 02/03/19 18:59 06:59 18:59 Intake Total 600 225 Balance 600 225 Intake: Intake, IV Titration 600 225 Amount Sodium Chloride 0.9% 1, 600 225 000 ml @ 75 mls/hr IV . [id number] [id number] Rx#:[id number] Other: # Voids 1 1 - Labs CBC & Chem 7: 02/01/19 12:45 02/03/19 09:17 Labs: Abnormal Lab Results - Last 24 Hours (Table) 02/03/19 Range/Units 09:17 Chloride 110 H (98-107) mmol/L Creatinine 0.63 L (0.66-1.25) mg/dL Glucose 65 L (74-99) mg/dL Calcium 8.1 L (8.4-10.2) mg/dL
--- NOTE | 2019-02-03 22:54 | P.PN ---
Subjective Progress Note Date: 02/02/19 Principal diagnosis: Acute partial small bowel obstruction Patient is a 68-year-old male with a known history of atrial fibrillation on anticoagulation, history of pulmonary embolism, osteoarthritis, alcohol abuse, history of pancreatitis and recently diagnosed with right renal carcinoma with sx, history of gastric sleeve converted to darrell-en-Y 08/2014-post op wound infection previous history of foul obstruction came to the hospital with complaints of abdominal pain. Patient says that abdominal pain has started since yesterday mainly in the mid abdomen and radiates across the abdominal wall to the size. Patient did have an episode of vomiting. Patient has been having constant abdominal pain which made him come to the hospital. Otherwise denied any compressive chest pain or shortness of breath. Patient has been having intermittent constipation and diarrhea. Denied any hematemesis or melena. Patient did have multiple abdominal surgeries including bowel resection, colostomy colostomy reversal and appendectomy and hernia repair. Patient did have a history of prior bowel perforation. Otherwise denied any fever or chills. No dysuria or hematuria. Denied any recent illnesses. CT of abdomen pelvis showed small bowel loops dilated up to 3.7 cm possible tra nsposition point and a prior small bowel anastomosis in the anterior left and mid abdomen. A LEEP partial small bowel obstruction difficult to exclude at this time. T10 vertebral compression fracture with 50% anterior height loss. No retropulsion into the spinal canal. Correlate for an acute to subacute fracture. This was not seen in the dielectric testing machine operator image of the 01/11/[address] Extensive intra-abdominal fatty proliferation, severe within the retroperitoneum. Correlate for possible hormonal or endocrine etiology including but not limited to diabetes or [place]'s. Left-sided: He can diver ticulosis without evidence for acute diverticulitis. 8 mm nonobstructive left renal calculus. 02/02/2019 Patient says that his abdominal pain is better. Did have a small bowel movement yesterday. No complaints of fever or chills. Repeat CT abdomen with oral contrast showed no same been changed from previous study. General surgery is following. Current medications reviewed. Objective - Vital Signs Vital signs: Vital Signs Temp 98.3 F 02/03/19 19:52 Pulse 65 02/03/19 19:52 Resp 17 02/03/19 19:52 BP 149/87 02/03/19 19:52 Pulse Ox 94 L 02/03/19 19:52 Intake & Output 02/03/19 02/03/19 02/04/19 06:59 18:59 06:59 Intake Total 225 Balance 225 Intake: Intake, IV Titration 225 Amount Sodium Chloride 0.9% 1, 225 000 ml @ 75 mls/hr IV . [id number] [facility] Rx#:[id number] Other: # Voids 1 3 2 - Exam PHYSICAL EXAMINATION: Patient is lying in the bed comfortably, no acute distress, awake alert and oriented.. HEENT: Normocephalic. Neck is supple. Pupils reactive. Nostrils clear. Oral cavity is moist. Ears reveal no drainage. Neck reveals no JVD, carotid bruits, or thyromegaly. CHEST EXAMINATION: Trachea is central. Symmetrical expansion. Lung valdez clear to auscultation and percussion. CARDIAC: Normal S1, S2 with no gallops. No murmurs ABDOMEN: Soft. Bowel sounds sent, mild lower abdominal tenderness. No guarding no rigidity.. No organomegaly. No abdominal bruits. Extremities: reveal no edema. No clubbing or cyanosis Neurologically awake, alert, oriented x3 with well-coordinated movements. No focal deficits noted Skin: No rash or skin lesions. Psychiatric: Coperative. Nonsuicidal Musculoskeletal: No joint swelling or deformity. Normal range of motion. - Labs CBC & Chem 7: 02/01/19 12:45 02/03/19 09:17 Labs: Abnormal Lab Results - Last 24 Hours (Table) 02/03/19 Range/Units 09:17 Chloride 110 H (98-107) mmol/L Creatinine 0.63 L (0.66-1.25) mg/dL Glucose 65 L (74-99) mg/dL Calcium 8.1 L (8.4-10.2) mg/dL Assessment and Plan Assessment: Abdominal pain secondary to partial small bowel obstruction. T10 vertebral compression fracture with 50% anterior height loss. Status post fall 2 weeks ago. Left-sided colonic diverticulosis Atrial fibrillation paroxysmal currently on anticoagulation with a decrease Osteoarthritis of multiple joints History of PE Alcohol abuse Previous history of pancreatitis Recent right kidney lesion cryoablation at [facility] in 2018 BPH History of multiple abdominal surgeries including bowel resection d/t viscus perf with colostomy later reversed , gastric sleeve converted to darrell-en-Y 08/2014-post op wound infection, paraesphogeal hiat hernia repair, R inguinal and umbilical hernia repairs, colonoscopies. DVT prophylaxis Plan: Patient will be continued on IV fluids. Nothing by mouth. General surgery is following. Medical management for nausea and vomiting. Pain management with IV Dilaudid. Continue with supportive management at this time and follow closely. Further recommendations based on the clinical course. Time with Patient: Greater than 30
--- NOTE | 2019-02-03 22:56 | P.PN ---
Subjective Progress Note Date: 02/03/19 Principal diagnosis: Acute partial small bowel obstruction Patient is a 68-year-old male with a known history of atrial fibrillation on anticoagulation, history of pulmonary embolism, osteoarthritis, alcohol abuse, history of pancreatitis and recently diagnosed with right renal carcinoma with sx, history of gastric sleeve converted to darrell-en-Y 08/2014-post op wound infection previous history of foul obstruction came to the hospital with complaints of abdominal pain. Patient says that abdominal pain has started since yesterday mainly in the mid abdomen and radiates across the abdominal wall to the size. Patient did have an episode of vomiting. Patient has been having constant abdominal pain which made him come to the hospital. Otherwise denied any compressive chest pain or shortness of breath. Patient has been having intermittent constipation and diarrhea. Denied any hematemesis or melena. Patient did have multiple abdominal surgeries including bowel resection, colostomy colostomy reversal and appendectomy and hernia repair. Patient did have a history of prior bowel perforation. Otherwise denied any fever or chills. No dysuria or hematuria. Denied any recent illnesses. CT of abdomen pelvis showed small bowel loops dilated up to 3.7 cm possible tra nsposition point and a prior small bowel anastomosis in the anterior left and mid abdomen. A LEEP partial small bowel obstruction difficult to exclude at this time. T10 vertebral compression fracture with 50% anterior height loss. No retropulsion into the spinal canal. Correlate for an acute to subacute fracture. This was not seen in the senior net web developer image of the 01/11/[address] Extensive intra-abdominal fatty proliferation, severe within the retroperitoneum. Correlate for possible hormonal or endocrine etiology including but not limited to diabetes or [place]'s. Left-sided: He can diver ticulosis without evidence for acute diverticulitis. 8 mm nonobstructive left renal calculus. 02/02/2019 Patient says that his abdominal pain is better. Did have a small bowel movement yesterday. No complaints of fever or chills. Repeat CT abdomen with oral contrast showed no same been changed from previous study. General surgery is following. 02/03/2019 Patient did have another small bowel movement last night. No complaints of blood in the stool. Patient is able to pass flatness. Currently patient was started on clear liquid diet and advance as tolerated. Otherwise patient is complaining of back pain. CT abdomen pelvis showed T10 vertebral compression fracture with 50% anterior height loss. Orthopedic surgery was consulted for evaluation. No complaints of chest pain or shortness of breath. No complaints of leg weakness. No bladder or bowel incontinence. No numbness or tingling sensation over legs. Current medications reviewed. Objective - Vital Signs Vital signs: Vital Signs Temp 98.3 F 02/03/19 19:52 Pulse 65 02/03/19 19:52 Resp 17 02/03/19 19:52 BP 149/87 02/03/19 19:52 Pulse Ox 94 L 02/03/19 19:52 Intake & Output 02/03/19 02/03/19 02/04/19 06:59 18:59 06:59 Intake Total 225 Balance 225 Intake: Intake, IV Titration 225 Amount Sodium Chloride 0.9% 1, 225 000 ml @ 75 mls/hr IV . [id number] [facility] Rx#:[id number] Other: # Voids 1 3 2 - Exam PHYSICAL EXAMINATION: Patient is lying in the bed comfortably, no acute distress, awake alert and oriented.. HEENT: Normocephalic. Neck is supple. Pupils reactive. Nostrils clear. Oral cavity is moist. Ears reveal no drainage. Neck reveals no JVD, carotid bruits, or thyromegaly. CHEST EXAMINATION: Trachea is central. Symmetrical expansion. Lung valdez clear to auscultation and percussion. CARDIAC: Normal S1, S2 with no gallops. No murmurs ABDOMEN: Soft. Bowel sounds sent, mild lower abdominal tenderness. No guarding no rigidity.. No organomegaly. No abdominal bruits. Extremities: reveal no edema. No clubbing or cyanosis Neurologically awake, alert, oriented x3 with well-coordinated movements. No focal deficits noted Skin: No rash or skin lesions. Psychiatric: Coperative. Nonsuicidal Musculoskeletal: No joint swelling or deformity. Normal range of motion. - Labs CBC & Chem 7: 02/01/19 12:45 02/03/19 09:17 Labs: Abnormal Lab Results - Last 24 Hours (Table) 02/03/19 Range/Units 09:17 Chloride 110 H (98-107) mmol/L Creatinine 0.63 L (0.66-1.25) mg/dL Glucose 65 L (74-99) mg/dL Calcium 8.1 L (8.4-10.2) mg/dL Assessment and Plan Assessment: Abdominal pain secondary to partial small bowel obstruction. T10 vertebral compression fracture with 50% anterior height loss. Status post fall 2 weeks ago. Left-sided colonic diverticulosis Atrial fibrillation paroxysmal currently on anticoagulation with a decrease Osteoarthritis of multiple joints History of PE Alcohol abuse Previous history of pancreatitis Recent right kidney lesion cryoablation at [facility] in 2018 BPH History of multiple abdominal surgeries including bowel resection d/t viscus perf with colostomy later reversed , gastric sleeve converted to darrell-en-Y 08/2014-post op wound infection, paraesphogeal hiat hernia repair, R inguinal and umbilical hernia repairs, colonoscopies. DVT prophylaxis Plan: Patient will be continued on IV fluids. Started on liquid diet and advance as tolerated.. General surgery is following. Medical management for nausea and vomiting. Pain management with IV Dilaudid. Continue with supportive management at this time and follow closely. Further recommendations based on the clinical course. Time with Patient: Greater than 30
[2019-02-04] MEDS: HYDROmorphone 0.5 MG/0.5 ML SYRINGE IVP PRN ×4 (03:37→16:17)
[2019-02-04 07:44] VITALS: BP 126/84; RESP 16; TEMP 98.2
[2019-02-04] MEDS: HEPARIN SODIUM,PORCINE 5,000 UNIT/ML 1 ML VIAL SQ SCH ×3 (08:33→16:37)
[2019-02-04] MEDS: ALLOPURINOL 300 MG TAB PO SCH (08:33)
[2019-02-04] MEDS: METOPROLOL TARTRATE 25 MG TAB PO SCH (08:33)
--- NOTE | 2019-02-04 09:07 | P.CNOR ---
History of Present Illness - [facility] Consult date: 02/04/19 Requesting physician: Jonah Powell Consult reason: fracture (T10 compression fracture deformity), back pain (Th oracic back pain) History of present illness: Patient is a very pleasant 68-year-old male who is seen and examined at bedside for further evaluation after consultation was placed for T10 compression fracture deformity found on CT imaging of the abdomen and pelvis. Patient states he has sustained a few falls over the past couple months but does not know specific injury. He does admit to increased lower thoracic back pain and states that he has increased pain during standing activities. He states his thoracic spine seems to fatigue more easily. His pain is increased with coughing and sneezing. He denies any specific changes in the bilateral lower extremities. He does admit to some generalized weakness of bilateral lower extremities. He has a history of a left total knee arthroplasty performed approximately 5 years ago which he states has not been the same following surgical intervention. He recently worked in physical therapy for his lower ext remities. He is not currently complaining of any specific lower extremity radiculopathy bilaterally. He originally presented to the hospital for abdominal pain with an episode of vomiting. He is being seen and examined by general surgery for possible small bowel obstruction. This has resolved and he is planning to increase his diet today. He does have a significant past surgical medical history including bowel resection with colostomy which was later reversed, gastric sleeve converted to Darrell-En-Y, right inguinal and umbilical hernia repairs, paraesophageal hiatal hernia repair, and recent right kidney lesion Cryoblation. Patient also has a significant medical history with includes atrial fibrillation, pulmonary embolism, pancreatitis, history of alcohol abuse, and recent diagnosis of right renal cell carcinoma. Past Medical History Past Medical History: Atrial Fibrillation, Blood Disorder, Cancer, Osteoarthritis (OA), Pulmonary Embolus (PE) Additional Past Medical History / Comment(s): Afib/RVR, pulmonary embolism L lung, pancreatitis multiple times, ETOH abuse, recent diagnosed with R renal carcinoma with sx, BPH, past R lung pneumo with chest tube, diverticulitis, benign colon polyps, arthritis multiple joints, abdominal hernias. Dizziness fall and right rib fractures 09/15/19, History of Any Multi-Drug Resistant Organisms: None Reported Past Surgical History: Bariatric Surgery, Bowel Resection, Cholecystectomy, Hernia Repair, Joint Replacement Additional Past Surgical History / Comment(s): Recent (2017) r kidney lesion cryoablation at [facility], 2013 bowel resection d/t viscus perf with colostomy later reversed , gastric sleeve converted to darrell-en-Y 08/2014-post op wound infection, paraesphogeal hiat hernia repair, R inguinal and umbilical hernia repairs, colonoscopies, L total knee arthroplasty., Past Anesthesia/Blood Transfusion Reactions: No Reported Reaction Smoking Status: Former smoker - Past Family History Father Family Medical History: COPD, Myocardial Infarction ([place]) Additional Family Medical History / Comment(s): Father from a [place] at the age of 69yrs. Mother Family Medical History: Cancer Additional Family Medical History / Comment(s): Mother from ovarian cancer at the age of 69yrs. Sister(s) Family Medical History: Cancer Additional Family Medical History / Comment(s): at age 74yrs. Had breast cancer and a defibrillator Medications and Allergies Home Medications Medication Instructions Recorded Confirmed Type Allopurinol [Zyloprim] 300 mg PO DAILY 02/22/14 02/01/19 History Cholecalciferol [Vitamin D3 (25 5,000 unit PO DAILY 07/26/14 02/01/19 History Mcg = 1000 Iu)] Metoprolol Tartrate [Lopressor] 25 mg PO BID 06/28/17 02/01/19 History Multivitamin [Men's Multi-Vitamin] 1 tab PO DAILY #30 07/01/17 02/01/19 Rx Apixaban [Eliquis] 5 mg PO BID #0 06/28/18 02/01/19 Rx Pantoprazole Sodium [Protonix] 40 mg PO BID #60 tablet.dr 06/28/18 02/01/19 Rx Potassium Chloride [K-Tab ER] 10 meq PO DAILY #14 tablet.er 11/29/18 02/01/19 Rx Cyanocobalamin (Vitamin B-12) 1,000 mcg PO DAILY 01/03/19 02/01/19 History [Vitamin B-12] Furosemide [Lasix] 40 mg PO DAILY 01/03/19 02/01/19 History Ferrous Sulfate [Feosol] 325 mg PO DAILY 01/11/19 02/01/19 History Baclofen [Lioresal] 20 mg PO BID PRN 02/01/19 02/01/19 History Folic Acid 1 mg PO DAILY 02/01/19 02/01/19 History HYDROcodone/APAP 7.5-325MG [[place] 1 tab PO TID PRN 02/01/19 02/01/19 History 7.5-325] Thiamine [Vitamin B-1] 100 mg PO BID 02/01/19 02/01/19 History predniSONE See Taper PO DAILY 02/01/19 02/01/19 History Allergies Allergy/AdvReac Type Severity Reaction Status Date / Time No Known Allergies Allergy Verified 02/01/19 13:04 Physical Examination Physical exam: Patient is awake, alert, and oriented 3 Vital signs stable Good chest excursion with deep inspiration and expiration Examination of thoracic and lumbar spine reveals skin is intact with no abrasions, lacerations, or bruises; no erythema, purulence or signs of infection Significant pain with palpation along the midline of the lower thoracic spine; no significant pain with palpation over the lower lumbar spine Some trophic skin changes of the lower extremities Dorsiflexion, plantarflexion, and extensor hallucis longus positive sustained bilaterally Lower extremity strength 5/5 bilaterally Patient is able to move legs independently in bed without significant difficulty No lower extremity hyperreflexia bilaterally Straight leg test negative bilateral lower extremities No signs or symptoms of DVT; no calf pain No pain with internal and external rotation of the hips bilaterally Neurovascularly intact Results Pertinent studies: CT abdomen and pelvis taken on 02/02/2019: T10 mild to moderate compression fracture deformity with approximately 50% height loss with some sclerosis in which his compression fracture deformity was not evident on previous chest CT performed on 09/15/2018; moderate degenerative disc disease with vacuum disc phenomenon of the lower lumbar spine; 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 deviating or bowel loops anteriorly and centrally - Labs Labs: Abnormal Lab Results - Last 24 Hours (Table) 02/03/19 Range/Units 09:17 Chloride 110 H (98-107) mmol/L Creatinine 0.63 L (0.66-1.25) mg/dL Glucose 65 L (74-99) mg/dL Calcium 8.1 L (8.4-10.2) mg/dL H & H 02/01/19 Range/Units 12:45 Hgb 9.3 L (13.0-17.5) gm/dL Hct 29.1 L (39.0-53.0) % Result Diagrams: 02/01/19 12:45 02/03/19 09:17 Assessment and Plan Assessment: Assessment: T10 acute subacute compression fracture deformity Thoracic back pain Lumbar degenerative disc disease Abdominal pain Possible small bowel obstruction resolved History of multiple abdominal surgeries History of atrial fibrillation, pulmonary embolism, pancreatitis, history of alcohol abuse, and recent diagnosis of right renal cell carcinoma (1) Compression fracture of T10 vertebra Current Visit: Yes Status: Acute Code(s): S22.070A - WEDGE COMPRESSION FRACTURE OF T9-T10 VERTEBRA, INIT SNOMED Code(s): 972980565 (2) Thoracic back pain Current Visit: Yes Status: Acute Code(s): M54.6 - PAIN IN THORACIC SPINE SNOMED Code(s): 233200695 (3) Lumbar degenerative disc disease Current Visit: Yes Status: Acute Code(s): M51.36 - OTHER INTERVERTEBRAL DISC DEGENERATION, LUMBAR REGION SNOMED Code(s): 87553384 (4) Abdominal pain Current Visit: Yes Status: Acute Code(s): R10.9 - UNSPECIFIED ABDOMINAL PAIN SNOMED Code(s): 45298169 (5) Partial small bowel obstruction Current Visit: Yes Status: Acute Code(s): K56.600 - PARTIAL INTESTINAL OBSTRUCTION, UNSPECIFIED TO CAUSE SNOMED Code(s): 898733209 (6) H/O ETOH abuse Current Visit: No Status: Acute Code(s): Z87.898 - PERSONAL HISTORY OF OTHER SPECIFIED CONDITIONS SNOMED Code(s): 916651624 (7) History of Darrell-en-Y gastric bypass Current Visit: No Status: Acute Code(s): Z98.84 - BARIATRIC SURGERY STATUS SNOMED Code(s): 943356209 (8) History of atrial fibrillation Current Visit: No Status: Acute Code(s): Z86.79 - PERSONAL HISTORY OF OTHER DISEASES OF THE CIRCULATORY SYSTEM SNOMED Code(s): 062192283 (9) History of pulmonary embolism Current Visit: No Status: Acute Code(s): Z86.711 - PERSONAL HISTORY OF PULMONARY EMBOLISM SNOMED Code(s): 535101017 Plan: Plan: 1. After reviewing of imaging, physical examination the patient, and further discussion with the patient, will currently planned to continue with conservative treatment at this time. Review of imaging does show evidence of a T10 compression fracture deformity on CT of the abdomen and pelvis taken on 02/02/2019. This compression fracture deformity was not present on previous chest CT performed on 09/15/2018. Patient does have a history of multiple falls recently and has noticed some increased thoracic pain and fatigue since that time. His thoracic pain is also exacerbated with coughing and sneezing. At this time we'll plan for bracing. A prescription has been written and provided to case management for a Spinomed TLSO brace. Once this brace is delivered and fitted appropriately, patient should wear this brace while sitting upright at greater than 45, during increase activities, during ambulation. Brace is not have to or while lying in bed or while bathing. Following fitting of this brace, patient is clear for discharge from an orthopedic spine standpoint. Following discharge, patient may follow-up with Kevin Bains PA-C or Dr. Martín Diaz at [facility]. 2. Patient will continue to be seen by general surgery and medicine for his other medical diagnoses Time with Patient: Greater than 30 (Including obtaining history, physical examination, reviewing of imaging, and dictation.)
--- NOTE | 2019-02-04 10:02 | P.PN ---
Subjective Progress Note Date: 02/04/19 CHIEF COMPLAINT: abdominal pain HISTORY OF PRESENT ILLNESS: Patient seen and examined at the bedside. Patient denies abdominal pain. Denies nausea or vomiting. Tolerating clear liquid diet. Passing flatus. Reports small formed bowel movement this morning. PHYSICAL EXAM: VITAL SIGNS: Reviewed. GENERAL: Well-developed in no acute distress. HEENT: No sclera icterus. Extraocular movements grossly intact. Moist buccal mucosa. Head is atraumatic, normocephalic. ABDOMEN: Soft. Positive bowel sounds. Healed midline abdominal scars. Nont rachael. NEUROLOGIC: Alert and oriented. Cranial nerves II through XII grossly intact. ASSESSMENT: 1. Abdominal pain 2. Possible small bowel obstruction, resolved 3. History of multiple abdominal surgeries including bowel resection due to perforated colon with colostomy, colostomy reversal, hernia repairs, cholecystectomy and Bibi-en-Y PLAN: 1. Advance diet as tolerated 2. No surgical intervention recommended 3. Stable from a surgical perspective Nurse practitioner note has been reviewed by physician. Signing provider agrees with the documented findings, assessment, and plan of care. Objective - Vital Signs Vital signs: Vital Signs Temp 98.2 F 02/04/19 07:00 Pulse 76 02/04/19 07:00 Resp 16 02/04/19 07:00 BP 126/84 02/04/19 07:00 Pulse Ox 94 L 02/04/19 07:00 Intake & Output 02/03/19 02/04/19 02/04/19 18:59 06:59 18:59 Intake Total 480 Output Total 375 Balance -375 480 Intake: Oral 480 Output: Urine 375 Other: # Voids 3 2 - Labs CBC & Chem 7: 02/01/19 12:45 02/03/19 09:17 Labs: Abnormal Lab Results - Last 24 Hours (Table) 02/03/19 Range/Units 09:17 Chloride 110 H (98-107) mmol/L Creatinine 0.63 L (0.66-1.25) mg/dL Glucose 65 L (74-99) mg/dL Calcium 8.1 L (8.4-10.2) mg/dL
[2019-02-04] MEDS: SODIUM CHLORIDE 0.9% 1,000 ML IV SCH (10:53)
--- NOTE | 2019-02-04 15:38 | P.DS ---
Providers Date of admission: 02/01/19 14:33 Expected date of discharge: 02/04/19 Attending physician: Jamal Steele Consults: 02/01/19 14:42 Consult Physician Urgent Consulting Provider: Krystina Vasquez Consult Reason/Comments: Partial small bowel obstruction Do you want consulting provider notified?: Yes 02/01/19 15:50 Consult Physician Urgent Consulting Provider: Pete Lucas Consult Reason/Comments: Partial small bowel obsstruction Do you want consulting provider notified?: Yes 02/03/19 14:25 Consult Physician Routine Consulting Provider: Nawaf Diaz Consult Reason/Comments: BACK PAIN T-10 COMPRESSION FRACTURE Do you want consulting provider notified?: Yes Primary care physician: Rebekah Hood Hospital Course: 68-year-old male with a known history of atrial fibrillation on anticoagulation, history of pulmonary embolism, osteoarthritis, alcohol abuse, history of pancreatitis and recently diagnosed with right renal carcinoma with sx, history of gastric sleeve converted to darrell-en-Y 08/2014-post op wound infection previous history of foul obstruction came to the hospital with complaints of abdominal pain. Patient says that abdominal pain has started since yesterday mainly in the mid abdomen and radiates across the abdominal wall to the size. Patient did have an episode of vomiting. Patient has been having constant abdominal pain which made him come to the hospital. Otherwise denied any compressive chest pain or shortness of breath. Patient has been having intermittent constipation and diarrhea. Denied any hematemesis or melena. Anila ent did have multiple abdominal surgeries including bowel resection, colostomy colostomy reversal and appendectomy and hernia repair. Patient did have a history of prior bowel perforation. Otherwise denied any fever or chills. No dysuria or hematuria. Denied any recent illnesses. CT of abdomen pelvis showed small bowel loops dilated up to 3.7 cm possible transposition point and a prior small bowel anastomosis in the anterior left and mid abdomen. A LEEP partial small bowel obstruction difficult to exclude at this time. T10 vertebral compression fracture with 50% anterior height loss. No retropulsion into the spinal canal. Correlate for an acute to subacute fracture. This was not seen in the ship scraper image of the 01/11/[address] Extensive intra-abdominal fatty proliferation, severe within the retroperitoneum. Correlate for possible hormonal or endocrine etiology including but not limited to diabetes or Miriam's. Left-sided: He can diverticulosis without evidence for acute diverticulitis. 8 mm nonobstructive left renal calculus. 02/02/2019 Patient says that his abdominal pain is better. Did have a small bowel movement yesterday. No complaints of fever or chills. Repeat CT abdomen with oral contrast showed no same been changed from previous study. General surgery is following. 02/03/2019 Patient did have another small bowel movement last night. No complaints of blood in the stool. Patient is able to pass flatness. Currently patient was started on clear liquid diet and advance as tolerated. Otherwise patient is complaining of back pain. CT abdomen pelvis showed T10 vertebral compression fracture with 50% anterior height loss. Orthopedic surgery was consulted for evaluation. No complaints of chest pain or shortness of breath. No complaints of leg weakness. No bladder or bowel incontinence. No numbness or tingling sensation over legs. 02/04/2019; patient's diet was advanced per surgery service once bowel obstruction resolved; patient was cleared for discharge; patient was also seen by orthopedic service and was recommended conservative treatment; patient's imaging did show T10 compression fracture deformity on CT not previously present ; patient did have multiple falls recently and he was recommended TLSO brace to be worn while sitting upright at greater than 45, and getting increase activities and ambulation; this was discussed with patient in great detail and patient will be discharged to follow-up with orthopedic as an outpatient and PCP Patient Condition at Discharge: Fair Plan - Discharge Summary Discharge Rx Participant: No New Discharge Prescriptions: Continue Allopurinol [Zyloprim] 300 mg PO DAILY Cholecalciferol [Vitamin D3 (25 Mcg = 1000 Iu)] 5,000 unit PO DAILY Metoprolol Tartrate [Lopressor] 25 mg PO BID Multivitamin [Men's Multi-Vitamin] 1 tab PO DAILY #30 Apixaban [Eliquis] 5 mg PO BID #0 Pantoprazole Sodium [Protonix] 40 mg PO BID #60 tablet.dr Potassium Chloride [K-Tab ER] 10 meq PO DAILY #14 tablet.er Furosemide [Lasix] 40 mg PO DAILY Cyanocobalamin (Vitamin B-12) [Vitamin B-12] 1,000 mcg PO DAILY Ferrous Sulfate [Iron (65 MG Elemental)] 325 mg PO DAILY Baclofen [Lioresal] 20 mg PO BID PRN PRN Reason: Muscle Pain Folic Acid 1 mg PO DAILY HYDROcodone/APAP 7.5-325MG [[place] 7.5-325] 1 tab PO TID PRN PRN Reason: Pain predniSONE See Taper PO DAILY Thiamine [Vitamin B-1] 100 mg PO BID Discharge Medication List Allopurinol [Zyloprim] 300 mg PO DAILY 02/22/14 [History] Cholecalciferol [Vitamin D3 (25 Mcg = 1000 Iu)] 5,000 unit PO DAILY 07/26/14 [History] Metoprolol Tartrate [Lopressor] 25 mg PO BID 06/28/17 [History] Multivitamin [Men's Multi-Vitamin] 1 tab PO DAILY #30 07/01/17 [Rx] Apixaban [Eliquis] 5 mg PO BID #0 06/28/18 [Rx] Pantoprazole Sodium [Protonix] 40 mg PO BID #60 tablet.dr 06/28/18 [Rx] Potassium Chloride [K-Tab ER] 10 meq PO DAILY #14 tablet.er 11/29/18 [Rx] Cyanocobalamin (Vitamin B-12) [Vitamin B-12] 1,000 mcg PO DAILY 01/03/19 [History] Furosemide [Lasix] 40 mg PO DAILY 01/03/19 [History] Ferrous Sulfate [Iron (65 MG Elemental)] 325 mg PO DAILY 01/11/19 [History] Baclofen [Lioresal] 20 mg PO BID PRN 02/01/19 [History] Folic Acid 1 mg PO DAILY 02/01/19 [History] HYDROcodone/APAP 7.5-325MG [[place] 7.5-325] 1 tab PO TID PRN 02/01/19 [History] Thiamine [Vitamin B-1] 100 mg PO BID 02/01/19 [History] predniSONE See Taper PO DAILY 02/01/19 [History] Follow up Appointment(s)/Referral(s): Kevin Bains PAC [PHYSICIAN MANAGER CHINESE] - 2 Weeks (Patient may follow-up with Kevin Bains PA-C or Dr. Martín Diaz at [facility] in 2-3 weeks following discharge. ) Rebekah Hood DO [Primary Care Provider] - 1-2 days Zain Tao [NON-STAFF] - Activity/Diet/Wound Care/Special Instructions: 1. Patient may wear Spinomed TLSO brace for comfort and support while sitting upright at greater than 45, while working with therapy, and while ambulating; patient does not have to wear the brace while lying in bed or bathing 2. Patient should avoid excessive bending, twisting, and lifting; no lifting greater than 10 pounds 3. Spinomed TLSO brace will be delivered to the bedside on 02/04/19 by Sandee Discharge Disposition: HOME SELF-CARE
[2019-02-04 16:36] VITALS: PULSE 84
== END 2019-02-04 18:30 | disposition home or self-care (01) | DRG 389 ==
LOC: EC 11:32 → 4SSUR 14:33
PROVIDERS: ADMIT Hospitalist; ATTEND Hospitalist
DX: K56.600 Partial intestinal obstruction, unspecified as to cause (principal); S22.070A Wedge compression fracture of T9-T10 vertebra, initial encounter for closed fracture; I48.0 Paroxysmal atrial fibrillation; K57.30 Diverticulosis of large intestine without perforation or abscess without bleeding; M51.36 Other intervertebral disc degeneration, lumbar region; N40.0 Benign prostatic hyperplasia without lower urinary tract symptoms; N20.0 Calculus of kidney; M19.90 Unspecified osteoarthritis, unspecified site; F10.10 Alcohol abuse, uncomplicated; Z79.01 Long term (current) use of anticoagulants; Z79.899 Other long term (current) drug therapy; Z98.84 Bariatric surgery status; Z98.890 Other specified postprocedural states; Z90.49 Acquired absence of other specified parts of digestive tract; Z96.652 Presence of left artificial knee joint; Z87.891 Personal history of nicotine dependence; Z86.711 Personal history of pulmonary embolism; Z87.19 Personal history of other diseases of the digestive system; Z85.528 Personal history of other malignant neoplasm of kidney; Z86.010 Personal history of colon polyps; Z91.81 History of falling; Z82.5 Family history of asthma and other chronic lower respiratory diseases; Z82.49 Family history of ischemic heart disease and other diseases of the circulatory system; Z80.41 Family history of malignant neoplasm of ovary; Z80.3 Family history of malignant neoplasm of breast; W19.XXXA Unspecified fall, initial encounter
CPT/HCPCS: 36415; 74019; 74176; 74177; 80048; 80053; 81003; 83605; 83690; 85025; 96361; 96374; 96375; 99285

== ENCOUNTER 2019-03-04 13:14 | Inpatient (IN) | payer MEDICARE, OTHER ==
--- NOTE | 2019-03-04 13:42 | ED ---
General Adult HPI - General Source: patient, RN notes reviewed Mode of arrival: ambulatory Limitations: no limitations <Franco Mitchell - Last Filed: 03/04/19 15:40> <Mickey Douglass - Last Filed: 03/04/19 15:58> - General Chief complaint: Recheck/Abnormal Lab/Rx Stated complaint: Legs swelling Time Seen by Provider: 03/04/19 13:32 - History of Present Illness Initial comments: 68-year-old male presents emergency Department with chief complaint of leg swelling. Patient states she's had progressive worsening of his leg swelling. Patient was placed on Lasix approximately one month ago. Patient has had his legs wrapped twice by PCP. Patient states he noticed increased swelling to his thigh, scrotal region over the last 3 days. He states is making very difficulty ambulate this time. He denies any chest pain no increased shortness breath they'll he does have underlying shortness of breath. Patient states that he takes Lasix 40 mg twice a day. Patient denies any current chest pain, fevers or chills. (Franco Mitchell) - Related Data Home Medications Medication Instructions Recorded Confirmed Allopurinol [Zyloprim] 300 mg PO DAILY 02/22/14 02/01/19 Cholecalciferol [Vitamin D3 (25 5,000 unit PO DAILY 07/26/14 02/01/19 Mcg = 1000 Iu)] Metoprolol Tartrate [Lopressor] 25 mg PO BID 06/28/17 02/01/19 Cyanocobalamin (Vitamin B-12) 1,000 mcg PO DAILY 01/03/19 02/01/19 [Vitamin B-12] Furosemide [Lasix] 40 mg PO DAILY 01/03/19 02/01/19 Ferrous Sulfate [Iron (65 MG 325 mg PO DAILY 01/11/19 02/01/19 Elemental)] Baclofen [Lioresal] 20 mg PO BID PRN 02/01/19 02/01/19 Folic Acid 1 mg PO DAILY 02/01/19 02/01/19 HYDROcodone/APAP 7.5-325MG [[place] 1 tab PO TID PRN 02/01/19 02/01/19 7.5-325] Thiamine [Vitamin B-1] 100 mg PO BID 02/01/19 02/01/19 predniSONE See Taper PO DAILY 02/01/19 02/01/19 Previous Rx's Medication Instructions Recorded Multivitamin [Men's Multi-Vitamin] 1 tab PO DAILY #30 07/01/17 Apixaban [Eliquis] 5 mg PO BID #0 06/28/18 Pantoprazole Sodium [Protonix] 40 mg PO BID #60 tablet. 06/28/18 Potassium Chloride [K-Tab ER] 10 meq PO DAILY #14 tablet.er 11/29/18 Allergies Allergy/AdvReac Type Severity Reaction Status Date / Time No Known Allergies Allergy Verified 03/04/19 13:28 Review of Systems ROS Other: All systems not noted in ROS Statement are negative. <Franco Mitchell - Last Filed: 03/04/19 15:40> ROS Other: All systems not noted in ROS Statement are negative. <Mickey Douglass - Last Filed: 03/04/19 15:58> ROS Statement: Those systems with pertinent positive or pertinent negative responses have been documented in the HPI. Past Medical History Past Medical History: Atrial Fibrillation, Blood Disorder, Cancer, Osteoarthritis (OA), Pulmonary Embolus (PE) Additional Past Medical History / Comment(s): Afib/RVR, pulmonary embolism L lung, pancreatitis multiple times, ETOH abuse, recent diagnosed with R renal carcinoma with sx, BPH, past R lung pneumo with chest tube, diverticulitis, benign colon polyps, arthritis multiple joints, abdominal hernias. Dizziness fall and right rib fractures 09/15/19, History of Any Multi-Drug Resistant Organisms: None Reported Past Surgical History: Bariatric Surgery, Bowel Resection, Cholecystectomy, Hernia Repair, Joint Replacement Additional Past Surgical History / Comment(s): Recent (2017) r kidney lesion cryoablation at [facility], 2013 bowel resection d/t viscus perf with colostomy later reversed , gastric sleeve converted to darrell-en-Y 08/2014-post op wound infection, paraesphogeal hiat hernia repair, R inguinal and umbilical hernia repairs, colonoscopies, L total knee arthroplasty., Past Anesthesia/Blood Transfusion Reactions: No Reported Reaction Past Psychological History: No Psychological Hx Reported Smoking Status: Former smoker Past Alcohol Use History: None Reported Past Drug Use History: None Reported - Past Family History Father Family Medical History: COPD, Myocardial Infarction (DC) Additional Family Medical History / Comment(s): Father from a DC at the age of 69yrs. Mother Family Medical History: Cancer Additional Family Medical History / Comment(s): Mother from ovarian cancer at the age of 69yrs. Sister(s) Family Medical History: Cancer Additional Family Medical History / Comment(s): at age 74yrs. Had breast cancer and a defibrillator <PaulaFranco - Last Filed: 03/04/19 15:40> General Exam Limitations: no limitations General appearance: alert, in no apparent distress Head exam: Present: atraumatic, normocephalic, normal inspection Neck exam: Present: normal inspection. Absent: tenderness, meningismus, lymphadenopathy Respiratory exam: Present: normal lung sounds bilaterally. Absent: respiratory distress, wheezes, rales, rhonchi, stridor Cardiovascular Exam: Present: irregular rhythm, normal heart sounds. Absent: r egular rate, normal rhythm, systolic murmur, diastolic murmur, rubs, gallop, clicks GI/Abdominal exam: Present: soft, normal bowel sounds. Absent: distended, tenderness, guarding, rebound, rigid exam: Present: scrotal swelling Extremities exam: Present: other (Extensive lower extremity swelling primarily on the knees of lower legs are wrapped, pedal pulses equal bilaterally) Skin exam: Present: warm, dry, intact, normal color. Absent: rash <Franco Mitchell - Last Filed: 03/04/19 15:40> Course <Mickey Douglass - Last Filed: 03/04/19 15:58> Vital Signs 03/04/19 03/04/19 03/04/19 13:25 13:36 14:00 Temperature 98.0 F Pulse Rate 69 66 62 Respiratory 22 15 13 Rate Blood Pressure 95/49 103/62 97/57 O2 Sat by Pulse 96 97 97 Oximetry 03/04/19 14:15 Temperature Pulse Rate Respiratory Rate Blood Pressure 85/62 O2 Sat by Pulse Oximetry - Reevaluation(s) Reevaluation #1: 03/04/19 15:58 PA supervision: I proceeded [id number] evaluation the patient I did discuss the findings with him he does demonstrate edema up to his scrotum and lower abdomen. He has been gaining weight he does have evidence of CHF. I did discuss case with Dr. Ontiveros the patient will be admitted I do agree with the assessment and plan. (Mickey Douglass) EKG Findings - EKG Comments: EKG Findings:: EKG performed at 14:01 sinus rhythm with PAC, nonspecific T-wave abnormality, rate of 66 NV 170 QRS 86 QT/QTC 42/505 <Franco Mitchell - Last Filed: 03/04/19 15:40> Medical Decision Making - Lab Data Result diagrams: 03/04/19 13:50 03/04/19 13:50 <Franco Mitchell - Last Filed: 03/04/19 15:40> - Lab Data Result diagrams: 03/04/19 13:50 03/04/19 13:50 <Mickey Douglass - Last Filed: 03/04/19 15:58> - Medical Decision Making 68-year-old male presented for leg swelling, shortness breath. Patient has mildly elevated BMP, except for leg swelling and scrotal swelling. This is consistent with CHF. Patient will be admitted (Franco Mitchell) - Lab Data Lab Results 03/04/19 03/04/19 03/04/19 Range/Units 13:50 13:50 13:50 WBC 3.9 (3.8-10.6) k/uL RBC 3.11 L (4.30-5.90) m/uL Hgb 9.9 L (13.0-17.5) gm/dL Hct 31.2 L (39.0-53.0) % MCV 100.4 H (80.0-100.0) fL MCH 32.0 (25.0-35.0) pg MCHC 31.8 (31.0-37.0) g/dL RDW 18.3 H (11.5-15.5) % Plt Count 256 (150-450) k/uL Neutrophils % (Manual) 73 % Lymphocytes % (Manual) 17 % Monocytes % (Manual) 9 % Eosinophils % (Manual) 1 % Neutrophils # (Manual) 2.85 (1.3-7.7) k/uL Lymphocytes # (Manual) 0.66 L (1.0-4.8) k/uL Monocytes # (Manual) 0.35 (0-1.0) k/uL Eosinophils # (Manual) 0.04 (0-0.7) k/uL Nucleated RBCs 0 (0-0) /100 WBC Manual Slide Review Performed Polychromasia Present Poikilocytosis (manual Present Anisocytosis Slight Macrocytosis Moderate Target Cells Present Sodium 138 (137-145) mmol/L Potassium 3.6 (3.5-5.1) mmol/L Chloride 103 (98-107) mmol/L Carbon Dioxide 30 (22-30) mmol/L Anion Gap 5 mmol/L BUN 10 (9-20) mg/dL Creatinine 1.06 (0.66-1.25) mg/dL Est GFR (CKD-EPI)AfAm 84 (>60 ml/min/1.73 sqM) Est GFR (CKD-EPI)NonAf 73 (>60 ml/min/1.73 sqM) Glucose 87 (74-99) mg/dL Calcium 7.8 L (8.4-10.2) mg/dL Magnesium 1.5 L (1.6-2.3) mg/dL Total Bilirubin 1.5 H (0.2-1.3) mg/dL AST 84 H (17-59) U/L ALT 69 (21-72) U/L Alkaline Phosphatase 359 H (38-126) U/L NT-Pro-B Natriuret Pep 2260 pg/mL Total Protein 4.9 L (6.3-8.2) g/dL Albumin 2.1 L (3.5-5.0) g/dL Urine Color Urine Appearance (Clear) Urine pH (5.0-8.0) Ur Specific [place] (1.001-1.035) Urine Protein (Negative) Urine Glucose (UA) (Negative) Urine Ketones (Negative) Urine Blood (Negative) Urine Nitrite (Negative) Urine Bilirubin (Negative) Urine Urobilinogen (<2.0) mg/dL Ur Leukocyte Esterase (Negative) 03/04/19 Range/Units 15:00 WBC (3.8-10.6) k/uL RBC (4.30-5.90) m/uL Hgb (13.0-17.5) gm/dL Hct (39.0-53.0) % MCV (80.0-100.0) fL MCH (25.0-35.0) pg MCHC (31.0-37.0) g/dL RDW (11.5-15.5) % Plt Count (150-450) k/uL Neutrophils % (Manual) % Lymphocytes % (Manual) % Monocytes % (Manual) % Eosinophils % (Manual) % Neutrophils # (Manual) (1.3-7.7) k/uL Lymphocytes # (Manual) (1.0-4.8) k/uL Monocytes # (Manual) (0-1.0) k/uL Eosinophils # (Manual) (0-0.7) k/uL Nucleated RBCs (0-0) /100 WBC Manual Slide Review Polychromasia Poikilocytosis (manual Anisocytosis Macrocytosis Target Cells Sodium (137-145) mmol/L Potassium (3.5-5.1) mmol/L Chloride (98-107) mmol/L Carbon Dioxide (22-30) mmol/L Anion Gap mmol/L BUN (9-20) mg/dL Creatinine (0.66-1.25) mg/dL Est GFR (CKD-EPI)AfAm (>60 ml/min/1.73 sqM) Est GFR (CKD-EPI)NonAf (>60 ml/min/1.73 sqM) Glucose (74-99) mg/dL Calcium (8.4-10.2) mg/dL Magnesium (1.6-2.3) mg/dL Total Bilirubin (0.2-1.3) mg/dL AST (17-59) U/L ALT (21-72) U/L Alkaline Phosphatase (38-126) U/L NT-Pro-B Natriuret Pep pg/mL Total Protein (6.3-8.2) g/dL Albumin (3.5-5.0) g/dL Urine Color Yellow Urine Appearance Clear (Clear) Urine pH 5.5 (5.0-8.0) Ur Specific [place] 1.007 (1.001-1.035) Urine Protein Negative (Negative) Urine Glucose (UA) Negative (Negative) Urine Ketones Negative (Negative) Urine Blood Negative (Negative) Urine Nitrite Negative (Negative) Urine Bilirubin Negative (Negative) Urine Urobilinogen <2.0 (<2.0) mg/dL Ur Leukocyte Esterase Negative (Negative) Disposition <Franco Mitchell - Last Filed: 03/04/19 15:40> <Mickey Douglass - Last Filed: 03/04/19 15:58> Clinical Impression: CHF (congestive heart failure), Leg edema Disposition: ADMITTED IP TO THIS HOSP Condition: Fair Referrals: Rebekah Hood DO [Primary Care Provider] - 1-2 days
[2019-03-04 14:28] LABS: Albumin 2.1 g/dL (3.5-5.0); Calcium 7.8 mg/dL (8.4-10.2); Magnesium 1.5 mg/dL (1.6-2.3); Potassium 3.6 mmol/L (3.5-5.1); Total Bilirubin 1.5 mg/dL (0.2-1.3); Total Protein 4.9 g/dL (6.3-8.2)
[2019-03-04 14:36] LABS: Anisocytosis Slight; HCT 31.2 % (39.0-53.0); HGB 9.9 gm/dL (13.0-17.5); MCHC 31.8 g/dL (31.0-37.0); MCV 100.4 fL (80.0-100.0); Macrocytosis Moderate; Mean Platelet Volume 9.9; Platelet Count 256 k/uL (150-450); RBC 3.11 m/uL (4.30-5.90); RDW 18.3 % (11.5-15.5); WBC 3.9 k/uL (3.8-10.6)
--- NOTE | 2019-03-04 14:38 | XR ---
EXAMINATION TYPE: XR chest 2V DATE OF EXAM: 03/04/2019 COMPARISON: 01/08/2019 HISTORY: Chest pain and lower chimney swelling TECHNIQUE: Frontal and lateral views of the chest are obtained. FINDINGS: Cardiomediastinal silhouette is enlarged and stable. No discrete cephalization or pulmonar y vascular congestion. Chronic right midlung nodule is unchanged from 01/08/2019. Trace pleural effusi ons are noted bilaterally. There are overall low lung volumes. Minimal degenerative changes of the th oracic spine. IMPRESSION: Trace right pleural effusions and low lung volumes however no interstitial pulmonary lizzeth ma or pulmonary vascular congestion is seen. Right midlung nodular density is unchanged from the prio r. Nonemergent CT thorax could exclude pulmonary nodule.
[2019-03-04 15:07] LABS: Eosinophils # (M) 0.04 k/uL (0-0.7); Lymphocytes # (M) 0.66 k/uL (1.0-4.8); Monocytes # (M) 0.35 k/uL (0-1.0); Neutrophils # (M) 2.85 k/uL (1.3-7.7); Neutrophils % (M) 73 %; Nucleated Red Blood Cells 0 /100 WBC (0-0); Total Cells Counted 100
[2019-03-04 15:08] LABS: Poikilocytosis (M) Present; Polychromasia Present; Target Cells Present
[2019-03-04 15:35] LABS: Appearance,Urine Clear (Clear); Bilirubin,Urine Negative (Negative); Blood,Urine Negative (Negative); Color,Urine Yellow; Glucose,Urine (UA) Negative (Negative); Ketones,Urine Negative (Negative); Leukocyte Esterase,Urine Negative (Negative); Nitrite,Urine Negative (Negative); PH, Urine 5.5 (5.0-8.0); Protein,Urine Negative (Negative); Specific Gravity,Urine 1.007 (1.001-1.035); Urobilinogen,Urine <2.0 mg/dL (<2.0)
[2019-03-04] MEDS ORDERED: FUROSEMIDE 10 MG/ML 2 ML VIAL IV ONE (15:42)
[2019-03-04] MEDS ORDERED: HYDROcodone/APAP 7.5-325MG 1 EACH TAB PO ONE (16:29)
--- NOTE | 2019-03-04 19:24 | P.HPIM ---
History of Present Illness H&P Date: 03/04/19 Chief Complaint: Abnormal labs/leg swelling 68-year-old male presents emergency Department with chief complaint of leg swelling. Patient states she's had progressive worsening of his leg swelling. Patient was placed on Lasix approximately one month ago. Patient has had his legs wrapped twice by PCP. Patient states he noticed increased swelling to his thigh, scrotal region over the last 3 days. He states is making very difficulty ambulate this time. He denies any chest pain no increased shortness breath they'll he does have underlying shortness of breath. Patient states that he takes Lasix 40 mg twice a day. Patient denies any current chest pain, fevers or chills. Workup in ED shows an EKG of sinus rhythm with PACs, nonspecific T-wave abnormality Blood work WBC 3.9 hemoglobin 9.9 and hematocrit 31.2 with chemical profile sodium 138 potassium 3.6, chloride 103 bicarb 30, BUN 10 with creatinine 1.06 BNP is mildly elevated at 2260; checks x-ray shows trace right pleural effusion and low lung volumes; right mid lung nodular densities unchanged Review of Systems Constitutional: Denies chills, Denies fever Eyes: denies blurred vision Ears, nose, mouth and throat: Denies epistaxis, Denies hoarseness Cardiovascular: Reports dyspnea on exertion, Reports edema, Denies chest pain, Denies palpitations Respiratory: Denies cough with sputum Gastrointestinal: Denies abdominal pain, Denies nausea, Denies vomiting Genitourinary: Denies discharge, Denies hematuria Musculoskeletal: Denies frequent falls Musculoskeletal: bilateral: ankle swelling Integumentary: Denies color changes Neurological: Denies double vision, Denies gait dysfunction Endocrine: Denies cold intolerance, Denies heat intolerance Hematologic/Lymphatic: Denies easy bruising, Denies lymphadenopathy Past Medical History Past Medical History: Atrial Fibrillation, Blood Disorder, Cancer, Osteoarthritis (OA), Pulmonary Embolus (PE) Additional Past Medical History / Comment(s): Afib/RVR, pulmonary embolism L lung, pancreatitis multiple times, ETOH abuse, recent diagnosed with R renal carcinoma with sx, BPH, past R lung pneumo with chest tube, diverticulitis, benign colon polyps, arthritis multiple joints, abdominal hernias. Dizziness fall and right rib fractures 09/15/19, History of Any Multi-Drug Resistant Organisms: None Reported Past Surgical History: Bariatric Surgery, Bowel Resection, Cholecystectomy, Hernia Repair, Joint Replacement Additional Past Surgical History / Comment(s): Recent (2018) r kidney lesion cryoablation at [facility], 2013 bowel resection d/t viscus perf with colostomy later reversed , gastric sleeve converted to darrell-en-Y 08/2014-post op wound infection, paraesphogeal hiat hernia repair, R inguinal and umbilical hernia repairs, colonoscopies, L total knee arthroplasty., Past Anesthesia/Blood Transfusion Reactions: No Reported Reaction Past Psychological History: No Psychological Hx Reported Smoking Status: Former smoker Past Alcohol Use History: None Reported Past Drug Use History: None Reported - Past Family History Father Family Medical History: COPD, Myocardial Infarction ([place]) Additional Family Medical History / Comment(s): Father from a [place] at the age of 69yrs. Mother Family Medical History: Cancer Additional Family Medical History / Comment(s): Mother from ovarian cancer at the age of 69yrs. Sister(s) Family Medical History: Cancer Additional Family Medical History / Comment(s): at age 74yrs. Had breast cancer and a defibrillator Medications and Allergies Home Medications Medication Instructions Recorded Confirmed Type Allopurinol [Zyloprim] 300 mg PO DAILY 02/22/14 03/04/19 History Cholecalciferol [Vitamin D3 (25 5,000 unit PO DAILY 07/26/14 03/04/19 History Mcg = 1000 Iu)] Metoprolol Tartrate [Lopressor] 25 mg PO BID 06/28/17 03/04/19 History Multivitamin [Men's Multi-Vitamin] 1 tab PO DAILY #30 07/01/17 03/04/19 Rx Apixaban [Eliquis] 5 mg PO BID #0 06/28/18 03/04/19 Rx Pantoprazole Sodium [Protonix] 40 mg PO BID #60 tablet.dr 06/28/18 03/04/19 Rx Potassium Chloride [K-Tab ER] 10 meq PO DAILY #14 tablet.er 11/29/18 03/04/19 Rx Furosemide [Lasix] 40 mg PO DAILY 01/03/19 03/04/19 History Ferrous Sulfate [Iron (65 MG 325 mg PO DAILY 01/11/19 03/04/19 History Elemental)] HYDROcodone/APAP 7.5-325MG [[place] 1 tab PO TID PRN 02/01/19 03/04/19 History 7.5-325] Cefdinir [Omnicef] 300 mg PO BID 03/04/19 03/04/19 History Allergies Allergy/AdvReac Type Severity Reaction Status Date / Time No Known Allergies Allergy Verified 03/04/19 16:28 Physical Exam Vitals: Vital Signs Temp Pulse Resp BP Pulse Ox 03/04/19 17:08 98 F 62 18 95/58 100 03/04/19 16:21 66 18 95/50 100 03/04/19 14:15 85/62 03/04/19 14:00 62 13 97/57 97 03/04/19 13:36 66 15 103/62 97 03/04/19 13:25 98.0 F 69 22 95/49 96 Intake and Output 03/04/19 03/04/19 03/04/19 06:59 14:59 22:59 Output Total 500 Balance -500 Output: Urine 500 Other: Weight 124.738 kg Results CBC & Chem 7: 03/04/19 13:50 03/04/19 13:50 Labs: Abnormal Lab Results - Last 24 Hours (Table) 03/04/19 03/04/19 Range/Units 13:50 13:50 RBC 3.11 L (4.30-5.90) m/uL Hgb 9.9 L (13.0-17.5) gm/dL Hct 31.2 L (39.0-53.0) % MCV 100.4 H (80.0-100.0) fL RDW 18.3 H (11.5-15.5) % Lymphocytes # (Manual) 0.66 L (1.0-4.8) k/uL Calcium 7.8 L (8.4-10.2) mg/dL Magnesium 1.5 L (1.6-2.3) mg/dL Total Bilirubin 1.5 H (0.2-1.3) mg/dL AST 84 H (17-59) U/L Alkaline Phosphatase 359 H (38-126) U/L Total Protein 4.9 L (6.3-8.2) g/dL Albumin 2.1 L (3.5-5.0) g/dL Assessment and Plan Assessment: 1. Acute exacerbation CHF - We will admit patient to cardiac telemetry; we will monitor cardiac enzymes and EKG - Start patient on Lasix 40 mg IV every 12 hours - We will monitor strict LIZBETH's, daily weights, low sodium 2 g daily diet and restricted fluids at 2 L/ 24 hours - We will consult cardiology for further recommendations 2. Chronic atrial fibrillation; remains on anticoagulation therapy; currently rate controlled on metoprolol 25 mg twice a day 3. Hypertension; stable on home dose of metoprolol 25 mg twice a day 4. History of PE; remains on systemic anticoagulation 5. DVT prophylaxis; the stomach anticoagulation CODE STATUS; full code Time with Patient: Greater than 30
[2019-03-04] MEDS ORDERED: Magnesium Replacement Protocol 1 EACH MISC MISCELLANE PRN (19:50)
[2019-03-04] MEDS ORDERED: Potassium Replacement Protocol 1 EACH MISC MISCELLANE PRN (19:50)
[2019-03-04] MEDS ORDERED: POTASSIUM CHLORIDE ER 20 MEQ TAB.ER PO SCH (20:00)
[2019-03-04] MEDS: PANTOPRAZOLE 40 MG TABLET PO SCH (20:10)
[2019-03-04] MEDS: FUROSEMIDE 10 MG/ML 4 ML VIAL IV SCH (20:10)
[2019-03-04] MEDS: MAGNESIUM SULFATE-D5W PMX 1 GM in DEXTROSE/WATER 1 100ML.BAG IVPB SCH ×2 (20:10→21:26)
[2019-03-04] MEDS: CEFDINIR 300 MG CAP PO SCH (20:11)
[2019-03-04] MEDS: APIXABAN 5 MG TAB PO SCH (20:11)
[2019-03-04] MEDS: HYDROcodone/APAP 7.5-325MG 1 EACH TAB PO PRN (20:12)
[2019-03-04] MEDS ORDERED: METOPROLOL TARTRATE 25 MG TAB PO SCH (21:00)
[2019-03-05] MEDS: HYDROcodone/APAP 7.5-325MG 1 EACH TAB PO PRN ×3 (04:02→21:09)
[2019-03-05] MEDS: PANTOPRAZOLE 40 MG TABLET PO SCH ×2 (06:25→17:09)
[2019-03-05 06:53] LABS: Anisocytosis Slight; HCT 27.4 % (39.0-53.0); HGB 8.5 gm/dL (13.0-17.5); MCH 31.1 pg (25.0-35.0); MCHC 30.9 g/dL (31.0-37.0); MCV 100.7 fL (80.0-100.0); Macrocytosis Moderate; Mean Platelet Volume 8.3; Platelet Count 234 k/uL (150-450); RBC 2.72 m/uL (4.30-5.90); RDW 19.5 % (11.5-15.5); WBC 2.5 k/uL (3.8-10.6)
[2019-03-05 07:20] LABS: Calcium 7.4 mg/dL (8.4-10.2); Magnesium 1.8 mg/dL (1.6-2.3); Potassium 2.9 mmol/L (3.5-5.1)
[2019-03-05] MEDS: CHOLECALCIFEROL 1,000 UNIT TAB PO SCH (08:58)
[2019-03-05] MEDS: FUROSEMIDE 10 MG/ML 4 ML VIAL IV SCH ×2 (08:58→21:03)
[2019-03-05] MEDS: ALLOPURINOL 300 MG TAB PO SCH (08:58)
[2019-03-05] MEDS: POTASSIUM CHLORIDE ER 10 MEQ TAB.ER.PRT PO SCH (08:58)
[2019-03-05] MEDS: APIXABAN 5 MG TAB PO SCH ×2 (08:58→21:03)
[2019-03-05] MEDS: CEFDINIR 300 MG CAP PO SCH ×2 (08:58→21:03)
[2019-03-05] MEDS: FERROUS SULFATE 325 MG TAB PO SCH (08:58)
[2019-03-05] MEDS: MULTIVITAMINS, THERA 1 EACH TAB PO SCH (08:58)
[2019-03-05 10:14] LABS: Eosinophils # (M) 0.05 k/uL (0-0.7); Lymphocytes # (M) 0.43 k/uL (1.0-4.8); Monocytes # (M) 0.18 k/uL (0-1.0); Neutrophils # (M) 1.85 k/uL (1.3-7.7); Neutrophils % (M) 74 %; Nucleated Red Blood Cells 0 /100 WBC (0-0); Total Cells Counted 100
[2019-03-05 10:16] LABS: Stomatocytes Present
[2019-03-05] MEDS: POTASSIUM CHLORIDE ER 20 MEQ TAB.ER PO SCH ×5 (11:54→21:03)
[2019-03-05] MEDS: MAGNESIUM SULFATE-D5W PMX 1 GM in DEXTROSE/WATER 1 100ML.BAG IVPB SCH ×2 (11:54→13:10)
[2019-03-05 15:14] VITALS: BMI 38.0
--- NOTE | 2019-03-05 15:22 | P.CRDCN ---
History of Present Illness Consult date: 03/05/19 History of present illness: This is a 68-year-old gentleman with history of chronic atrial fibrillation and chronic anemia who came to the hospital for progressive edema of both legs. Apparently over the last month, the swelling and edema has gotten worse. He does complain of exertional shortness of breath but doesn't complain of any orthopnea or paroxysmal nocturnal dyspnea. Denies any chest pain. He follows with Dr. Mcadams for his chronic and persistent atrial fibrillation. Patient has been on anticoagulation. He is also noted to be anemic which seemed to be chronic and also has hypoalbuminemia. Most probably his edema is related to anemia, hypoalbuminemia, and other factors. Chest x-ray showed evidence of mild pleural effusion. Patient is being treated with IV Lasix. I'm going to add Aldactone 25 mg once daily and follow his electrolytes closely. Will get an echocardiogram to assess LV function. His proBNP is elevated. There may be an element of congestive heart failure. Further recommendations depend upon clinical course. Review of Systems REVIEW OF SYSTEMS: CONSTITUTIONAL: Accept default. Patient is doing well. No complaints of fever or chills EYES: Denies diplopia, blurring of vision EARS, NOSE, MOUTH, THROAT: Denies headaches, denies sore throat. CARDIOVASCULAR: Denies chest pain, denies shortness of breath, denies palpitations. Complaints of bilateral edema RESPIRATORY: Plans of exertional shortness of breath GASTROINTESTINAL: Denies change in appetite, denies abdominal pain, denies diarrhea GENITOURINARY: Denies hematuria, denies infections. MUSKULOSKELETAL: Denies pain, denies swelling. Denies any cramps or claudication INTEGUMENTARY: Denies rash, denies eczema. NEUROLOGICAL: Denies focal weakness, or visual disturbance. Denies any dizziness or syncope PSYCHIATRIC: Denies anxiety, denies depression. HEMATOLOGIC/LYMPHATIC: Denies any bleeding, denies enlarged lymph nodes. Past Medical History Past Medical History: Atrial Fibrillation, Blood Disorder, Cancer, Osteoarthritis (OA), Pulmonary Embolus (PE) Additional Past Medical History / Comment(s): Afib/RVR, pulmonary embolism L lung, pancreatitis multiple times, ETOH abuse, recent diagnosed with R renal carcinoma with sx, BPH, past R lung pneumo with chest tube, diverticulitis, benign colon polyps, arthritis multiple joints, abdominal hernias. Dizziness fa ll and right rib fractures 09/15/19, History of Any Multi-Drug Resistant Organisms: None Reported Past Surgical History: Bariatric Surgery, Bowel Resection, Cholecystectomy, Hernia Repair, Joint Replacement Additional Past Surgical History / Comment(s): Recent (2017) r kidney lesion cryoablation at [facility], 2013 bowel resection d/t viscus perf with colostomy later reversed , gastric sleeve converted to darrell-en-Y 08/2014-post op wound infection, paraesphogeal hiat hernia repair, R inguinal and umbilical hernia repairs, colonoscopies, L total knee arthroplasty., Past Anesthesia/Blood Transfusion Reactions: No Reported Reaction Past Psychological History: No Psychological Hx Reported Smoking Status: Former smoker Past Alcohol Use History: None Reported Past Drug Use History: None Reported - Past Family History Father Family Medical History: COPD, Myocardial Infarction ([place]) Additional Family Medical History / Comment(s): Father from a [place] at the age of 69yrs. Mother Family Medical History: Cancer Additional Family Medical History / Comment(s): Mother from ovarian cancer at the age of 69yrs. Sister(s) Family Medical History: Cancer Additional Family Medical History / Comment(s): at age 74yrs. Had breast cancer and a defibrillator Medications and Allergies Home Medications Medication Instructions Recorded Confirmed Type Allopurinol [Zyloprim] 300 mg PO DAILY 02/22/14 03/04/19 History Cholecalciferol [Vitamin D3 (25 5,000 unit PO DAILY 07/26/14 03/04/19 History Mcg = 1000 Iu)] Metoprolol Tartrate [Lopressor] 25 mg PO BID 06/28/17 03/04/19 History Multivitamin [Men's Multi-Vitamin] 1 tab PO DAILY #30 07/01/17 03/04/19 Rx Apixaban [Eliquis] 5 mg PO BID #0 06/28/18 03/04/19 Rx Pantoprazole Sodium [Protonix] 40 mg PO BID #60 tablet.dr 06/28/18 03/04/19 Rx Potassium Chloride [K-Tab ER] 10 meq PO DAILY #14 tablet.er 11/29/18 03/04/19 Rx Furosemide [Lasix] 40 mg PO DAILY 01/03/19 03/04/19 History Ferrous Sulfate [Iron (65 MG 325 mg PO DAILY 01/11/19 03/04/19 History Elemental)] HYDROcodone/APAP 7.5-325MG [[place] 1 tab PO TID PRN 02/01/19 03/04/19 History 7.5-325] Cefdinir [Omnicef] 300 mg PO BID 03/04/19 03/04/19 History Allergies Allergy/AdvReac Type Severity Reaction Status Date / Time No Known Allergies Allergy Verified 03/04/19 16:28 Physical Exam Vitals: Vital Signs Temp Pulse Pulse Resp BP BP Pulse Ox 03/05/19 14:55 83 18 03/05/19 14:54 98.2 F 83 18 94/59 96 03/05/19 12:00 97.0 F L 98 18 113/57 96 03/05/19 11:34 78 18 03/05/19 09:09 78 18 03/05/19 09:08 97.8 F 89 18 93/50 96 03/05/19 04:01 82 18 93/54 98 03/04/19 23:19 97.8 F 60 17 100/58 97 03/04/19 19:59 98.2 F 72 18 89/89 97 03/04/19 18:06 97.7 F 67 18 91/57 97 03/04/19 17:08 98 F 62 18 95/58 100 03/04/19 16:21 66 18 95/50 100 Intake and Output 03/05/19 03/05/19 03/05/19 06:59 14:59 22:59 Intake Total 780 Output Total 575 100 Balance -575 680 Intake: Intake, IV Titration 200 Amount Magnesium Sulfate-D5w Pmx 200 1 gm In Dextrose/Water 1 100ml.bag @ 100 mls/hr IVPB Q1H [facility] Rx#: [id number] Oral 580 Output: Urine 575 100 Other: Voiding Method Toilet Urinal # Voids 1 3 Weight 123.6 kg 123.6 kg GENERAL EXAM: Patient is alert and oriented and doesn't appear to be in any acute distress HEENT: Normocephalic. Normal reaction of pupils, equal size, normal range of extraocular motion. No erythema or exudates in the throat. NECK: No masses, no nuchal rigidity. CHEST: No chest wall deformity. LUNGS: Equal air entry with no crackles or wheeze. HEART: S1 and S2 normal with no audible mumurs or gallops. Regular rhythm, femorals equal on both sides.. ABDOMEN: No hepatosplenomegaly, normal bowel sounds, no guarding or rigidity. SKIN: No rashes CENTRAL NERVOUS SYSTEM: No focal deficits. EXTREMITIES: 3-4+ edema. Both legs are wrapped Results 03/05/19 06:17 03/05/19 06:17 CBC 03/05/19 Range/Units 06:17 WBC 2.5 L (3.8-10.6) k/uL RBC 2.72 L (4.30-5.90) m/uL Hgb 8.5 L (13.0-17.5) gm/dL Hct 27.4 L (39.0-53.0) % Plt Count 234 (150-450) k/uL Comprehensive Metabolic Panel 03/05/19 Range/Units 06:17 Sodium 139 (137-145) mmol/L Potassium 2.9 L (3.5-5.1) mmol/L Chloride 105 (98-107) mmol/L Carbon Dioxide 33 H (22-30) mmol/L BUN 8 L (9-20) mg/dL Creatinine 1.04 (0.66-1.25) mg/dL Glucose 88 (74-99) mg/dL Calcium 7.4 L (8.4-10.2) mg/dL Current Medications Generic Name Dose Route Start Last Admin Trade Name Freq PRN Reason Stop Dose Admin Hydrocodone Bitart/Acetaminophen 1 each 03/04/19 19:24 03/05/19 11:53 [place] 7.5-325 PO 1 each TID PRN Administration Pain Allopurinol 300 mg 03/05/19 09:00 03/05/19 08:58 Zyloprim PO 300 mg DAILY JESSY Administration Apixaban 5 mg 03/04/19 21:00 03/05/19 08:58 Eliquis PO 5 mg BID JESSY Administration Cefdinir 300 mg 03/04/19 21:00 03/05/19 08:58 Omnicef PO 300 mg BID JESSY Administration Cholecalciferol 5,000 unit 03/05/19 09:00 03/05/19 08:58 Vitamin D3 (25 Mcg = 1000 Iu) PO 5,000 unit DAILY JESSY Administration Ferrous Sulfate 325 mg 03/05/19 09:00 03/05/19 08:58 Feosol PO 325 mg DAILY JESSY Administration Furosemide 40 mg 03/04/19 21:00 03/05/19 08:58 Lasix IV 40 mg Q12HR JESSY Administration Miscellaneous Information 1 each 03/04/19 19:50 Magnesium Per Protocol MISCELLANE DAILY PRN Per Protocol Protocol Miscellaneous Information 1 each 03/04/19 19:50 Potassium Per Protocol MISCELLANE DAILY PRN Per Protocol Protocol Multivitamins 1 each 03/05/19 09:00 03/05/19 08:58 Theragran PO 1 each DAILY JESSY Administration Pantoprazole Sodium 40 mg 03/04/19 19:00 03/05/19 06:25 Protonix PO 40 mg AC-BID JESSY Administration Potassium Chloride 10 meq 03/05/19 09:00 03/05/19 08:58 K-Dur 10 PO 10 meq DAILY JESSY Administration Spironolactone 25 mg 03/06/19 09:00 Aldactone PO DAILY JESSY Intake and Output 03/05/19 03/05/19 03/05/19 06:59 14:59 22:59 Intake Total 780 Output Total 575 100 Balance -575 680 Intake: Intake, IV Titration 200 Amount Magnesium Sulfate-D5w Pmx 200 1 gm In Dextrose/Water 1 100ml.bag @ 100 mls/hr IVPB Q1H JESSY Rx#: [id number] Oral 580 Output: Urine 575 100 Other: Voiding Method Toilet Urinal # Voids 1 3 Weight 123.6 kg 123.6 kg Patient Weight 03/06/19 06:59 Weight 123.6 kg 03/05/19 06:17 03/05/19 06:17 EKG Interpretations (text) Appears to be sinus rhythm with small P waves, APCs Assessment and Plan (1) Persistent atrial fibrillation Current Visit: Yes Status: Acute Code(s): I48.1 - PERSISTENT ATRIAL FIBRILLATION SNOMED Code(s): 126060574 (2) CHF (congestive heart failure) Current Visit: Yes Status: Acute Code(s): I50.9 - HEART FAILURE, UNSPECIFIED SNOMED Code(s): 98667020 (3) Leg edema Current Visit: Yes Status: Acute Code(s): R60.0 - LOCALIZED EDEMA SNOMED Code(s): 740491246 (4) Anemia Current Visit: No Status: Acute Code(s): D64.9 - ANEMIA, UNSPECIFIED SNOMED Code(s): 907384712 Plan: We'll continue IV diuretics. I will add Aldactone. If necessary, small dose of Zaroxolyn may be added. His edema could be multifactorial including combined congestive heart failure, anemia, and also hypoalbuminemia. We will get an echocardiogram. Further examination depend upon the clinical course.
--- NOTE | 2019-03-05 16:49 | P.PN ---
Subjective Progress Note Date: 03/05/19 This is a 68-year-old gentleman with history of chronic atrial fibrillation and chronic anemia who came to the hospital for progressive edema of both legs. Apparently over the last month, the swelling and edema has gotten worse. He does complain of exertional shortness of breath but doesn't complain of any orthopnea or paroxysmal nocturnal dyspnea. Denies any chest pain. He follows with Dr. Mcadams for his chronic and persistent atrial fibrillation. Patient has been on anticoagulation. He is also noted to be anemic which seemed to be chronic and also has hypoalbuminemia. Most probably his edema is related to anemia, hypoalbuminemia, and other factors. Chest x-ray showed evidence of mild pleural effusion. Patient is being treated with IV Lasix 03/05/2019 Patient is seen and evaluated in room at bedside; continues to complain of marked swelling both lower extremities cardiology has evaluated patient and recommending to continue with IV Lasix with the addition of Aldactone 25 mg daily; echocardiogram is ordered and pending to assess left ventricular function We will continue to monitor strict LIZBETH's, daily weights, renal function and electrolytes; continue with fluid and salt restriction Objective - Vital Signs Vital signs: Vital Signs Temp 97.8 F 03/05/19 09:08 Pulse 78 03/05/19 09:09 Resp 18 03/05/19 09:09 BP 93/50 03/05/19 09:08 Pulse Ox 96 03/05/19 09:08 Intake & Output 03/04/19 03/05/19 03/05/19 18:59 06:59 18:59 Intake Total 420 Output Total 500 1175 Balance -500 -1175 420 Weight 124.738 kg 123.6 kg Intake: Oral 420 Output: Urine 500 1175 Other: Voiding Method Toilet Urinal # Voids 1 - Exam - Constitutional General appearance: Present: average body habitus, cooperative, no acute distress - EENT Eyes: Present: anicteric sclerae, EOMI, PERRLA, normal appearance ENT: Present: hearing grossly normal, normal oropharynx Ears: bilateral: normal - Neck Neck: Present: normal ROM. Absent: lymphadenopathy, rigidity, thyromegaly Carotids: negative: bruit present Thyroid: bilateral: normal size, negative: enlarged, nodule - Respiratory Respiratory: bilateral: CTA, negative: rales, rhonchi, wheezing - Cardiovascular Rhythm: regular Heart sounds: normal: S1, S2 Abnormal Heart Sounds: Absent: systolic murmur, diastolic murmur - Gastrointestinal General gastrointestinal: Present: normal bowel sounds, soft. Absent: distended, organomegaly, tenderness - Genitourinary Genitourinary Comment(s): deferred - Integumentary Integumentary: Present: normal turgor. Absent: jaundiced, rash, ulcer - Neurologic Neurologic: Present: CNII-XII intact. Absent: focal deficits - Musculoskeletal Musculoskeletal: Present: gait normal, strength equal bilaterally - Psychiatric Psychiatric: Present: A&O x's 3, appropriate affect, intact judgment & insight - Labs CBC & Chem 7: 03/05/19 06:17 03/05/19 06:17 Labs: Abnormal Lab Results - Last 24 Hours (Table) 03/04/19 03/04/19 03/05/19 Range/Units 13:50 13:50 06:17 WBC 2.5 L (3.8-10.6) k/uL RBC 3.11 L 2.72 L (4.30-5.90) m/uL Hgb 9.9 L 8.5 L (13.0-17.5) gm/dL Hct 31.2 L 27.4 L (39.0-53.0) % MCV 100.4 H 100.7 H (80.0-100.0) fL MCHC 30.9 L (31.0-37.0) g/dL RDW 18.3 H 19.5 H (11.5-15.5) % Lymphocytes # (Manual) 0.66 L 0.43 L (1.0-4.8) k/uL Potassium (3.5-5.1) mmol/L Carbon Dioxide (22-30) mmol/L BUN (9-20) mg/dL Calcium 7.8 L (8.4-10.2) mg/dL Magnesium 1.5 L (1.6-2.3) mg/dL Total Bilirubin 1.5 H (0.2-1.3) mg/dL AST 84 H (17-59) U/L Alkaline Phosphatase 359 H (38-126) U/L Total Protein 4.9 L (6.3-8.2) g/dL Albumin 2.1 L (3.5-5.0) g/dL 03/05/19 Range/Units 06:17 WBC (3.8-10.6) k/uL RBC (4.30-5.90) m/uL Hgb (13.0-17.5) gm/dL Hct (39.0-53.0) % MCV (80.0-100.0) fL MCHC (31.0-37.0) g/dL RDW (11.5-15.5) % Lymphocytes # (Manual) (1.0-4.8) k/uL Potassium 2.9 L (3.5-5.1) mmol/L Carbon Dioxide 33 H (22-30) mmol/L BUN 8 L (9-20) mg/dL Calcium 7.4 L (8.4-10.2) mg/dL Magnesium (1.6-2.3) mg/dL Total Bilirubin (0.2-1.3) mg/dL AST (17-59) U/L Alkaline Phosphatase (38-126) U/L Total Protein (6.3-8.2) g/dL Albumin (3.5-5.0) g/dL Assessment and Plan Assessment: 1. Acute exacerbation CHF - We will admit patient to cardiac telemetry; we will monitor cardiac enzymes and EKG - Start patient on Lasix 40 mg IV every 12 hours - We will monitor strict LIZBETH's, daily weights, low sodium 2 g daily diet and restricted fluids at 2 L/ 24 hours - We will consult cardiology for further recommendations 2. Chronic atrial fibrillation; remains on anticoagulation therapy; currently rate controlled on metoprolol 25 mg twice a day 3. Hypertension; stable on home dose of metoprolol 25 mg twice a day 4. History of PE; remains on systemic anticoagulation 5. DVT prophylaxis; the stomach anticoagulation CODE STATUS; full code Time with Patient: Greater than 30
[2019-03-06] MEDS: PANTOPRAZOLE 40 MG TABLET PO SCH ×2 (06:29→17:36)
[2019-03-06] MEDS: HYDROcodone/APAP 7.5-325MG 1 EACH TAB PO PRN ×3 (06:29→20:41)
[2019-03-06 07:13] LABS: Calcium 7.6 mg/dL (8.4-10.2); Magnesium 1.9 mg/dL (1.6-2.3)
[2019-03-06 07:24] LABS: Anisocytosis Slight; HCT 26.1 % (39.0-53.0); MCH 30.9 pg (25.0-35.0); MCHC 30.8 g/dL (31.0-37.0); MCV 100.4 fL (80.0-100.0); Macrocytosis Moderate; Platelet Count 232 k/uL (150-450); RDW 19.7 % (11.5-15.5); WBC 2.9 k/uL (3.8-10.6)
[2019-03-06] MEDS: CEFDINIR 300 MG CAP PO SCH ×2 (08:27→20:41)
[2019-03-06] MEDS: ALLOPURINOL 300 MG TAB PO SCH (08:27)
[2019-03-06] MEDS: POTASSIUM CHLORIDE ER 10 MEQ TAB.ER.PRT PO SCH (08:28)
[2019-03-06] MEDS: FERROUS SULFATE 325 MG TAB PO SCH (08:28)
[2019-03-06] MEDS: SPIRONOLACTONE 25 MG TAB PO SCH (08:28)
[2019-03-06] MEDS: MULTIVITAMINS, THERA 1 EACH TAB PO SCH (08:28)
[2019-03-06] MEDS: FUROSEMIDE 10 MG/ML 4 ML VIAL IV SCH ×2 (08:28→20:42)
[2019-03-06] MEDS: APIXABAN 5 MG TAB PO SCH ×2 (08:28→20:42)
[2019-03-06] MEDS: CHOLECALCIFEROL 1,000 UNIT TAB PO SCH (08:28)
[2019-03-06 10:30] LABS: Eosinophils # (M) 0.06 k/uL (0-0.7); Lymphocytes # (M) 1.02 k/uL (1.0-4.8); Monocytes # (M) 0.23 k/uL (0-1.0); Neutrophils % (M) 55 %; Nucleated Red Blood Cells 0 /100 WBC (0-0); Total Cells Counted 100
[2019-03-06 10:31] LABS: Stomatocytes Present
--- NOTE | 2019-03-06 11:02 | P.PN ---
Subjective Progress Note Date: 03/06/19 This is a 68-year-old gentleman with history of chronic atrial fibrillation and chronic anemia who came to the hospital for progressive edema of both legs. Apparently over the last month, the swelling and edema has gotten worse. He does complain of exertional shortness of breath but doesn't complain of any orthopnea or paroxysmal nocturnal dyspnea. Denies any chest pain. He follows with Dr. Mcadams for his chronic and persistent atrial fibrillation. Patient has been on anticoagulation. He is also noted to be anemic which seemed to be chronic and also has hypoalbuminemia. Most probably his edema is related to anemia, hypoalbuminemia, and other factors. Chest x-ray showed evidence of mild pleural effusion. Patient is being treated with IV Lasix. I'm going to add Aldactone 25 mg once daily and follow his electrolytes closely. Will get an echocardiogram to assess LV function. His proBNP is elevated. There may be an element of congestive heart failure. Further recommendations depend upon clinical course. 03/06: Patient states that he is feeling a little bit better today. He has been afebrile, heart rate 66, blood pressure 96/52, pulse ox 95% on room air. White count was 2.9, hemoglobin 8.0, platelet count 232. Sodium 139, potassium 4.0, chloride 106, CO2 33, BUN 8 and creatinine 1.05. Calcium is 7.6. Echocardiogram is pending. The leg edema is felt to be multifactorial including anemia, low protein in her failure. Objective - Vital Signs Vital signs: Vital Signs Temp 98.0 F 03/06/19 09:21 Pulse 84 03/06/19 09:21 Resp 18 03/06/19 09:21 BP 96/52 03/06/19 09:21 Pulse Ox 95 03/06/19 09:21 Intake & Output 03/05/19 03/06/19 03/06/19 18:59 06:59 18:59 Intake Total 1017 240 Output Total 100 1125 175 Balance 917 -1125 65 Weight 123.6 kg 125 kg Intake: Intake, IV Titration 200 Amount Magnesium Sulfate-D5w Pmx 200 1 gm In Dextrose/Water 1 100ml.bag @ 100 mls/hr IVPB Q1H [facility] Rx#: [id number] Oral 817 240 Output: Urine 100 1125 175 Other: Voiding Method Toilet Toilet Toilet Urinal Urinal Urinal # Voids 3 1 1 # Bowel Movements 1 - Exam GENERAL EXAM: Patient is alert and oriented and doesn't appear to be in any acute distress HEENT: Normocephalic. Normal reaction of pupils, equal size, normal range of extraocular motion. No erythema or exudates in the throat. NECK: No masses, no nuchal rigidity. CHEST: No chest wall deformity. LUNGS: Equal air entry with no crackles or wheeze. HEART: S1 and S2 normal with no audible mumurs or gallops. Regular rhythm, femorals equal on both sides.. ABDOMEN: No hepatosplenomegaly, normal bowel sounds, no guarding or rigidity. SKIN: No rashes CENTRAL NERVOUS SYSTEM: No focal deficits. EXTREMITIES: 3+ edema. Both legs are wrapped - Labs CBC & Chem 7: 03/06/19 06:26 03/06/19 06:26 Labs: Abnormal Lab Results - Last 24 Hours (Table) 03/05/19 03/06/19 03/06/19 Range/Units 17:41 06:26 06:26 WBC 2.9 L (3.8-10.6) k/uL RBC 2.60 L (4.30-5.90) m/uL Hgb 8.0 L (13.0-17.5) gm/dL Hct 26.1 L (39.0-53.0) % MCV 100.4 H (80.0-100.0) fL MCHC 30.8 L (31.0-37.0) g/dL RDW 19.7 H (11.5-15.5) % Potassium 3.3 L (3.5-5.1) mmol/L Carbon Dioxide 33 H (22-30) mmol/L BUN 8 L (9-20) mg/dL Calcium 7.6 L (8.4-10.2) mg/dL Assessment and Plan Plan: 1) Persistent atrial fibrillation Current Visit: Yes Status: Acute Code(s): I48.1 - PERSISTENT ATRIAL FIBRILLATION SNOMED Code(s): 409673707 (2) CHF (congestive heart failure) Current Visit: Yes Status: Acute Code(s): I50.9 - HEART FAILURE, UNSPECIFIED SNOMED Code(s): 33059691 (3) Leg edema Current Visit: Yes Status: Acute Code(s): R60.0 - LOCALIZED EDEMA SNOMED Code(s): 688268079 (4) Anemia Current Visit: No Status: Acute Code(s): D64.9 - ANEMIA, UNSPECIFIED SNOMED Code(s): 930755522 Plan: Continue IV Lasix 40 mg every 12 hours, Aldactone 25 mg daily, eliquis 5 mg twice daily. Obtain 2-D echocardiogram and Doppler study to assess cardiac s tructure and function. Monitor I&O and daily weights. If necessary, small dose of Zaroxolyn may be added. His edema could be multifactorial including combined congestive heart failure, anemia, and also hypoalbuminemia. Further examination depend upon the clinical course. Respiratory condition or note has been reviewed, agree with document findings and plan of care. Patient was seen and examined.
--- NOTE | 2019-03-06 14:36 | P.PN ---
Subjective Progress Note Date: 03/06/19 This is a 68-year-old gentleman with history of chronic atrial fibrillation and chronic anemia who came to the hospital for progressive edema of both legs. Apparently over the last month, the swelling and edema has gotten worse. He does complain of exertional shortness of breath but doesn't complain of any orthopnea or paroxysmal nocturnal dyspnea. Denies any chest pain. He follows with Dr. Mcadams for his chronic and persistent atrial fibrillation. Patient has been on anticoagulation. He is also noted to be anemic which seemed to be chronic and also has hypoalbuminemia. Most probably his edema is related to anemia, hypoalbuminemia, and other factors. Chest x-ray showed evidence of mild pleural effusion. Patient is being treated with IV Lasix 03/05/2019 Patient is seen and evaluated in room at bedside; continues to complain of marked swelling both lower extremities cardiology has evaluated patient and recommending to continue with IV Lasix with the addition of Aldactone 25 mg daily; echocardiogram is ordered and pending to assess left ventricular function We will continue to monitor strict LIZBETH's, daily weights, renal function and electrolytes; continue with fluid and salt restriction 03/06/2019: Patient states that he is feeling a little bit better today. He has been afebrile, heart rate 66, blood pressure 96/52, pulse ox 95% on room air. White count was 2.9, hemoglobin 8.0, platelet count 232. Sodium 139, potassium 4.0, chloride 106, CO2 33, BUN 8 and creatinine 1.05. Calcium is 7.6. Echocardiogram is pending. The leg edema is felt to be multifactorial including anemia, low protein in her failure. Objective - Vital Signs Vital signs: Vital Signs Temp 98.0 F 03/06/19 09:21 Pulse 84 03/06/19 11:08 Resp 18 03/06/19 11:08 BP 96/52 03/06/19 09:21 Pulse Ox 95 03/06/19 09:21 Intake & Output 03/05/19 03/06/19 03/06/19 18:59 06:59 18:59 Intake Total 1017 250 Output Total 100 1125 175 Balance 917 -1125 75 Weight 123.6 kg 125 kg Intake: IV 10 Invasive Line 1 10 Intake, IV Titration 200 Amount Magnesium Sulfate-D5w Pmx 200 1 gm In Dextrose/Water 1 100ml.bag @ 100 mls/hr IVPB Q1H [facility] Rx#: [id number] Oral 817 240 Output: Urine 100 1125 175 Other: Voiding Method Toilet Toilet Toilet Urinal Urinal Urinal # Voids 3 1 1 # Bowel Movements 1 - Exam - Constitutional General appearance: Present: average body habitus, cooperative, no acute distress - EENT Eyes: Present: anicteric sclerae, EOMI, PERRLA, normal appearance ENT: Present: hearing grossly normal, normal oropharynx Ears: bilateral: normal - Neck Neck: Present: normal ROM. Absent: lymphadenopathy, rigidity, thyromegaly Carotids: negative: bruit present Thyroid: bilateral: normal size, negative: enlarged, nodule - Respiratory Respiratory: bilateral: CTA, negative: rales, rhonchi, wheezing - Cardiovascular Rhythm: regular Heart sounds: normal: S1, S2 Abnormal Heart Sounds: Absent: systolic murmur, diastolic murmur - Gastrointestinal General gastrointestinal: Present: normal bowel sounds, soft. Absent: distended, organomegaly, tenderness - Genitourinary Genitourinary Comment(s): deferred - Integumentary Integumentary: Present: normal turgor. Absent: jaundiced, rash, ulcer - Neurologic Neurologic: Present: CNII-XII intact. Absent: focal deficits - Musculoskeletal Musculoskeletal: Present: gait normal, strength equal bilaterally - Psychiatric Psychiatric: Present: A&O x's 3, appropriate affect, intact judgment & insight - Labs CBC & Chem 7: 03/06/19 06:26 03/06/19 06:26 Labs: Abnormal Lab Results - Last 24 Hours (Table) 03/05/19 03/06/19 03/06/19 Range/Units 17:41 06:26 06:26 WBC 2.9 L (3.8-10.6) k/uL RBC 2.60 L (4.30-5.90) m/uL Hgb 8.0 L (13.0-17.5) gm/dL Hct 26.1 L (39.0-53.0) % MCV 100.4 H (80.0-100.0) fL MCHC 30.8 L (31.0-37.0) g/dL RDW 19.7 H (11.5-15.5) % Potassium 3.3 L (3.5-5.1) mmol/L Carbon Dioxide 33 H (22-30) mmol/L BUN 8 L (9-20) mg/dL Calcium 7.6 L (8.4-10.2) mg/dL Assessment and Plan Assessment: 1. Acute exacerbation CHF - We will admit patient to cardiac telemetry; we will monitor cardiac enzymes and EKG - Start patient on Lasix 40 mg IV every 12 hours - We will monitor strict LIZBETH's, daily weights, low sodium 2 g daily diet and restricted fluids at 2 L/ 24 hours - We will consult cardiology for further recommendations 2. Chronic atrial fibrillation; remains on anticoagulation therapy; currently rate controlled on metoprolol 25 mg twice a day 3. Hypertension; stable on home dose of metoprolol 25 mg twice a day 4. History of PE; remains on systemic anticoagulation 5. DVT prophylaxis; the stomach anticoagulation CODE STATUS; full code Time with Patient: Greater than 30
[2019-03-07] MEDS: PANTOPRAZOLE 40 MG TABLET PO SCH ×2 (06:45→16:36)
[2019-03-07 07:05] LABS: Anisocytosis Slight; HCT 26.7 % (39.0-53.0); HGB 8.3 gm/dL (13.0-17.5); Hypochromasia Slight; MCH 31.5 pg (25.0-35.0); MCHC 31.2 g/dL (31.0-37.0); Macrocytosis Moderate; Mean Platelet Volume 8.2; Platelet Count 223 k/uL (150-450); RBC 2.65 m/uL (4.30-5.90); RDW 19.4 % (11.5-15.5); WBC 2.7 k/uL (3.8-10.6)
[2019-03-07 07:26] LABS: Calcium 7.9 mg/dL (8.4-10.2)
[2019-03-07] MEDS: ALLOPURINOL 300 MG TAB PO SCH (09:01)
[2019-03-07] MEDS: FUROSEMIDE 10 MG/ML 4 ML VIAL IV SCH (09:01)
[2019-03-07] MEDS: CEFDINIR 300 MG CAP PO SCH ×2 (09:01→20:45)
[2019-03-07] MEDS: POTASSIUM CHLORIDE ER 10 MEQ TAB.ER.PRT PO SCH (09:01)
[2019-03-07] MEDS: APIXABAN 5 MG TAB PO SCH ×2 (09:01→20:45)
[2019-03-07] MEDS: SPIRONOLACTONE 25 MG TAB PO SCH (09:01)
[2019-03-07] MEDS: HYDROcodone/APAP 7.5-325MG 1 EACH TAB PO PRN ×2 (09:06→20:45)
[2019-03-07 11:05] LABS: Eosinophils # (M) 0.08 k/uL (0-0.7); Lymphocytes # (M) 0.65 k/uL (1.0-4.8); Monocytes # (M) 0.14 k/uL (0-1.0); Neutrophils # (M) 1.84 k/uL (1.3-7.7); Neutrophils % (M) 68 %; Nucleated Red Blood Cells 0 /100 WBC (0-0); Total Cells Counted 100
--- NOTE | 2019-03-07 11:11 | ECHOF ---
Referral Reason:eval for CHF MEASUREMENTS -------- HEIGHT: 180.3 cm WEIGHT: 124.7 kg BP: 104/59 IVSd: 1.2 cm (0.6 - 1.1) LVIDd: 4.4 cm (3.9 - 5.3) LVPWd: 1.4 cm (0.6 - 1.1) IVSs: 1.7 cm LVIDs: 2.5 cm LVPWs: 1.9 cm LAESV Index (A-L): 31.08 ml/m Ao Diam: 3.8 cm (2.0 - 3.7) AV Cusp: 2.3 cm (1.5 - 2.6) LA Diam: 3.6 cm (2.7 - 3.8) RAP: 5.00 mmHg RVSP: 13.49 mmHg FINDINGS -------- Sinus rhythm. This was a technically adequate study. The left ventricular size is normal. There is mild concentric left ventricular hypertrophy. Overa ll left ventricular systolic function is normal with, an EF between 55 - 60 %. The right ventricle is normal in size. LA is midly dilated 29-33ml/m2. The right atrial size is normal. The aortic valve was not well visualized. The mitral valve is normal. There is trace mitral regurgitation. Trace tricuspid regurgitation present. Right ventricular systolic pressure is normal at < 35 mmHg. The pulmonic valve was not well visualized. The aortic root size is normal. IVC Not well visulized. There is no pericardial effusion. CONCLUSIONS -------- 1. Sinus rhythm. 2. This was a technically adequate study. 3. The left ventricular size is normal. 4. There is mild concentric left ventricular hypertrophy. 5. Overall left ventricular systolic function is normal with, an EF between 55 - 60 %. 6. LA is midly dilated 29-33ml/m2. 7. The aortic valve was not well visualized. 8. There is trace mitral regurgitation. 9. Trace tricuspid regurgitation present. 10. Right ventricular systolic pressure is normal at < 35 mmHg. 11. The pulmonic valve was not well visualized. 12. The aortic root size is normal. 13. IVC Not well visulized. 14. There is no pericardial effusion. FIRE CONTROL TECHNICIAN B: Rosalia Amaya RDCS
--- NOTE | 2019-03-07 11:51 | XR ---
EXAMINATION TYPE: XR chest 2V DATE OF EXAM: 03/07/2019 COMPARISON: 03/04/2019 HISTORY: 68-year-old male follow-up CHF TECHNIQUE: PA and lateral views FINDINGS: Heart limits of normal in size. Small bilateral pleural effusions with patchy opacity right mid and l ower lung. Overall findings are relatively similar. Multiple right-sided rib fracture deformities. IMPRESSION: Similar small effusions with adjacent atelectasis and/or consolidation, right greater than left. Poss ible sequela of CHF. Clinically correlate.
[2019-03-07] MEDS: FERROUS SULFATE 325 MG TAB PO SCH (11:56)
[2019-03-07] MEDS: MULTIVITAMINS, THERA 1 EACH TAB PO SCH (11:56)
[2019-03-07] MEDS: CHOLECALCIFEROL 1,000 UNIT TAB PO SCH (11:56)
--- NOTE | 2019-03-07 15:29 | P.PN ---
Subjective Progress Note Date: 03/07/19 This is a 68-year-old gentleman with history of chronic atrial fibrillation and chronic anemia who came to the hospital for progressive edema of both legs. Apparently over the last month, the swelling and edema has gotten worse. He does complain of exertional shortness of breath but doesn't complain of any orthopnea or paroxysmal nocturnal dyspnea. Denies any chest pain. He follows with Dr. Mcadams for his chronic and persistent atrial fibrillation. Patient has been on anticoagulation. He is also noted to be anemic which seemed to be chronic and also has hypoalbuminemia. Most probably his edema is related to anemia, hypoalbuminemia, and other factors. Chest x-ray showed evidence of mild pleural effusion. Patient is being treated with IV Lasix. I'm going to add Aldactone 25 mg once daily and follow his electrolytes closely. Will get an echocardiogram to assess LV function. His proBNP is elevated. There may be an element of congestive heart failure. Further recommendations depend upon clinical course. 03/07/2019 Patient was seen and examined this morning, overall doing well. Diuresing on IV Lasix, creatinine today is 1.0. Blood pressure 118/60 with a heart rate in the 70s to 80s, 96% on room air. White blood cell count 2.7, hemoglobin 8.3, platelet count 223. Sodium 140, potassium 4.9, BUN 11 and creatinine 1.0. Objective - Vital Signs Vital signs: Vital Signs Temp 98.2 F 03/07/19 08:00 Pulse 75 03/07/19 12:00 Resp 18 03/07/19 12:00 BP 104/73 03/07/19 12:00 Pulse Ox 96 03/07/19 12:00 Intake & Output 03/06/19 03/07/19 03/07/19 18:59 06:59 18:59 Intake Total 740 480 Output Total 2074 1575 376 Balance -1335 -1575 104 Weight 125 kg Intake: IV 20 Invasive Line 1 20 Oral 720 480 Output: Urine 2074 1575 376 Other: Voiding Method Toilet Toilet Urinal Urinal # Voids 2 2 225 # Bowel Movements 1 - Exam GENERAL EXAM: Patient is alert and oriented and doesn't appear to be in any acute distress HEENT: Normocephalic. Normal reaction of pupils, equal size, normal range of extraocular motion. No erythema or exudates in the throat. NECK: No masses, no nuchal rigidity. CHEST: No chest wall deformity. LUNGS: Equal air entry with no crackles or wheeze. HEART: S1 and S2 normal with no audible mumurs or gallops. Regular rhythm, femorals equal on both sides.. ABDOMEN: No hepatosplenomegaly, normal bowel sounds, no guarding or rigidity. SKIN: No rashes CENTRAL NERVOUS SYSTEM: No focal deficits. EXTREMITIES: 3-4+ edema. Both legs are wrapped - Labs CBC & Chem 7: 03/07/19 06:23 03/07/19 06:23 Labs: Abnormal Lab Results - Last 24 Hours (Table) 03/07/19 03/07/19 Range/Units 06:23 06:23 WBC 2.7 L (3.8-10.6) k/uL RBC 2.65 L (4.30-5.90) m/uL Hgb 8.3 L (13.0-17.5) gm/dL Hct 26.7 L (39.0-53.0) % MCV 101.0 H (80.0-100.0) fL RDW 19.4 H (11.5-15.5) % Lymphocytes # (Manual) 0.65 L (1.0-4.8) k/uL Carbon Dioxide 36 H (22-30) mmol/L Calcium 7.9 L (8.4-10.2) mg/dL Assessment and Plan Plan: Assessment and plan #1 diastolic congestive heart failure acute on chronic #2 chronic persistent A. fib #3 anemia Plan We will discontinue the IV Lasix today and start the patient on oral diuretics. Check lytes BUN and creatinine in the morning. Plan for possible discharge home soon. DNP note has been reviewed, I agree with a documented findings and plan of care. Patient was seen and examined.
[2019-03-07] MEDS: FUROSEMIDE 40 MG TAB PO SCH (16:36)
--- NOTE | 2019-03-07 20:51 | PN ---
PROGRESS NOTE DATE OF SERVICE: 03/07/2019 This 68-year-old gentleman who was admitted with CHF exacerbation being closely monitored. Patient also had chronic atrial fibrillation. Also 2D echo has been done today, read by Cardiology, which showed ejection fraction of 55 to 60% and LA was mildly dilated, indicating acute on chronic diastolic dysfunction. Patient being closely monitored at this time. LABS: WBC 2.7, hemoglobin is 8.3, and platelets are normal at 223. Sodium 140, potassium 4. PAST MEDICAL HISTORY: Reviewed. REVIEW OF SYSTEMS: CARDIOVASCULAR: As mentioned earlier. RESPIRATORY: As mentioned earlier. GI: No nausea or vomiting. : No dysuria. CENTRAL NERVOUS SYSTEM: No numbness or weakness. EXTREMITIES: Significant swelling of the lower limbs, especially in the thigh present. MEDICATIONS: Home medications are: 1. [place] 7.5 t.i.d. p.r.n. 2. Zyloprim 300 mg p.o. 3. Eliquis 5 mg p.o. b.i.d. 4. Omnicef 300 mg p.o. b.i.d. 5. Vitamin D3 5000 daily. 6. Iron sulfate 320 mg daily. 7. Lasix 40 mg p.o. b.i.d. 9. Multivitamins one p.o. daily. 10.Protonix. 12.Aldactone. PHYSICAL EXAMINATION: The patient is alert and oriented times three. Pulse 75, blood pressure 104/72, respiration 18, temperature 98.2, pulse ox 98% on room air. HEENT: Conjunctivae normal. Oral mucosa moist. NECK is no jugular venous distention. No carotid bruit. No lymph node enlargement. CARDIOVASCULAR SYSTEMS: S1, S2 muffled. RESPIRATIONS: Breath sounds diminished in the bases. A few scattered rhonchi and crackles. Basal crackles also present. ABDOMEN: Soft, obese, nontender. LEGS as mentioned earlier, significant swelling of the thigh area present but below the leg area is improving with the Inder bandage. NERVOUS SYSTEM as mentioned earlier. Moves all 4 limbs. Mild diffuse weakness. Lymphatics: No lymph nodes palpable in the neck, axillae or groin. SKIN: No ulcers, rashes or bleeding. JOINTS: No active deforming arthropathy. LAB STUDIES: WBC 2.7, hemoglobin 8.8, sodium 140, potassium 4. ASSESSMENT: 1. Congestive heart failure acute exacerbation with acute on chronic diastolic dysfunction, ejection fraction 55 to 60%. 2. Chronic atrial fibrillation. 3. Hypertension. 4. History of pulmonary embolus. 5. Anemia macrocytic. 6. Leukopenia. 7. History of atrial fibrillation. 8. History of degenerative joint disease. 9. History of pulmonary embolism. 10.History of pancreatitis. 11.History of EtOH abuse. 12.History of recent diagnosis of right renal carcinoma . 13.History of benign prostatic hypertrophy. 14.History of diverticulitis. 15.History of degenerative joint disease. 16.History of dizziness. 17.History of bariatric surgery. 18.History of bowel resection. 19.History of cholecystectomy. 20.Cryoablation of the right kidney lesion. 21.Remote history of nicotine dependence. 22.FULL CODE. RECOMMENDATIONS AND DISCUSSION: In this 68-year-old gentleman who presented with multiple complex medical issues, we will monitor the patient closely, continue the current medications, management and symptomatic treatment. I recommend continue with cautious diuresis. Otherwise, the patient on p.o. antibiotics also. We will increase ambulation. Otherwise closely follow with Cardiology. Resume home medications. DVT prophylaxis. Guarded prognosis because of multiple complex medical issues. Further recommendations to follow. See orders for details. Closely follow with cardiology. MMODL / IJN: [id number] / PADMINI
[2019-03-08] MEDS: PANTOPRAZOLE 40 MG TABLET PO SCH ×2 (06:20→17:48)
[2019-03-08 06:53] LABS: African American GFR (CKD) >90 (>60 ml/min/1.73 sqM); Anion Gap 1 mmol/L; Blood Urea Nitrogen 12 mg/dL (9-20); Carbon Dioxide 33 mmol/L (22-30); Chloride 103 mmol/L (98-107); Glucose 90 mg/dL (74-99); Potassium 3.7 mmol/L (3.5-5.1); Sodium 137 mmol/L (137-145)
[2019-03-08 07:20] LABS: Anisocytosis Slight; HCT 26.5 % (39.0-53.0); HGB 8.2 gm/dL (13.0-17.5); Hypochromasia Slight; MCH 31.4 pg (25.0-35.0); MCHC 30.8 g/dL (31.0-37.0); MCV 102.2 fL (80.0-100.0); Macrocytosis Moderate; Mean Platelet Volume 8.1; Platelet Count 206 k/uL (150-450); RBC 2.59 m/uL (4.30-5.90); RDW 19.2 % (11.5-15.5); WBC 2.9 k/uL (3.8-10.6)
[2019-03-08] MEDS: HYDROcodone/APAP 7.5-325MG 1 EACH TAB PO PRN ×2 (08:51→20:39)
[2019-03-08] MEDS: CEFDINIR 300 MG CAP PO SCH ×2 (08:51→20:39)
[2019-03-08] MEDS: ALLOPURINOL 300 MG TAB PO SCH (08:52)
[2019-03-08] MEDS: FUROSEMIDE 40 MG TAB PO SCH ×2 (08:52→17:48)
[2019-03-08] MEDS: APIXABAN 5 MG TAB PO SCH ×2 (08:52→20:39)
[2019-03-08] MEDS: SPIRONOLACTONE 25 MG TAB PO SCH (08:52)
[2019-03-08] MEDS: POTASSIUM CHLORIDE ER 10 MEQ TAB.ER.PRT PO SCH (08:52)
[2019-03-08 10:36] LABS: Eosinophils # (M) 0.06 k/uL (0-0.7); Lymphocytes # (M) 0.55 k/uL (1.0-4.8); Neutrophils # (M) 2.09 k/uL (1.3-7.7); Neutrophils % (M) 72 %; Nucleated Red Blood Cells 0 /100 WBC (0-0); Total Cells Counted 100
[2019-03-08] MEDS: MULTIVITAMINS, THERA 1 EACH TAB PO SCH (12:57)
[2019-03-08] MEDS: CHOLECALCIFEROL 1,000 UNIT TAB PO SCH (12:58)
[2019-03-08] MEDS: FERROUS SULFATE 325 MG TAB PO SCH (12:58)
--- NOTE | 2019-03-08 14:51 | P.PN ---
Subjective Progress Note Date: 03/08/19 This is a 68-year-old gentleman with history of chronic atrial fibrillation and chronic anemia who came to the hospital for progressive edema of both legs. Apparently over the last month, the swelling and edema has gotten worse. He does complain of exertional shortness of breath but doesn't complain of any orthopnea or paroxysmal nocturnal dyspnea. Denies any chest pain. He follows with Dr. Mcadams for his chronic and persistent atrial fibrillation. Patient has been on anticoagulation. He is also noted to be anemic which seemed to be chronic and also has hypoalbuminemia. Most probably his edema is related to anemia, hypoalbuminemia, and other factors. Chest x-ray showed evidence of mild pleural effusion. Patient is being treated with IV Lasix. I'm going to add Aldactone 25 mg once daily and follow his electrolytes closely. Will get an echocardiogram to assess LV function. His proBNP is elevated. There may be an element of congestive heart failure. Further recommendations depend upon clinical course. 03/07/2019 Patient was seen and examined this morning, overall doing well. Diuresing on IV Lasix, creatinine today is 1.0. Blood pressure 118/60 with a heart rate in the 70s to 80s, 96% on room air. White blood cell count 2.7, hemoglobin 8.3, platelet count 223. Sodium 140, potassium 4.9, BUN 11 and creatinine 1.0. 03/08/2019 Patient was seen and examined this morning, doing well overall.blood pressure 136/66, heart rate in the 70s, 93% on room air.blood cell count 2.9, hemoglobin 8.2, platelet count 206. Sodium 137, potassium 3.7, BUN 12 and creatinine 0.9. Objective - Vital Signs Vital signs: Vital Signs Temp 97.9 F 03/08/19 12:00 Pulse 72 03/08/19 12:00 Resp 20 03/08/19 12:00 BP 136/67 03/08/19 12:00 Pulse Ox 93 L 03/08/19 12:00 Intake & Output 03/07/19 03/08/19 03/08/19 18:59 06:59 18:59 Intake Total 720 200 Output Total 376 1590 720 Balance 720 -5214 -520 Weight 119 kg Intake: Oral 720 200 Output: Urine 376 1590 720 Other: Voiding Method Toilet Urinal # Voids 225 3 # Bowel Movements 1 - Exam GENERAL EXAM: Patient is alert and oriented and doesn't appear to be in any acute distress HEENT: Normocephalic. Normal reaction of pupils, equal size, normal range of extraocular motion. No erythema or exudates in the throat. NECK: No masses, no nuchal rigidity. CHEST: No chest wall deformity. LUNGS: Equal air entry with no crackles or wheeze. HEART: S1 and S2 normal with no audible mumurs or gallops. Regular rhythm, femorals equal on both sides.. ABDOMEN: No hepatosplenomegaly, normal bowel sounds, no guarding or rigidity. SKIN: No rashes CENTRAL NERVOUS SYSTEM: No focal deficits. EXTREMITIES: 3-4+ edema. Both legs are wrapped - Labs CBC & Chem 7: 03/08/19 06:07 03/08/19 06:07 Labs: Abnormal Lab Results - Last 24 Hours (Table) 03/08/19 03/08/19 Range/Units 06:07 06:07 WBC 2.9 L (3.8-10.6) k/uL RBC 2.59 L (4.30-5.90) m/uL Hgb 8.2 L (13.0-17.5) gm/dL Hct 26.5 L (39.0-53.0) % MCV 102.2 H (80.0-100.0) fL MCHC 30.8 L (31.0-37.0) g/dL RDW 19.2 H (11.5-15.5) % Lymphocytes # (Manual) 0.55 L (1.0-4.8) k/uL Carbon Dioxide 33 H (22-30) mmol/L Calcium 8.0 L (8.4-10.2) mg/dL Assessment and Plan Plan: Assessment and plan #1 diastolic congestive heart failure acute on chronic #2 chronic persistent A. fib #3 anemia Plan from cardiology's perspective, we'll recommend to continue this patient on his current medications. He may be able to be discharged home once cleared by primary. We will make a follow-up appointment in the office post discharge. DNP note has been reviewed, I agree with a documented findings and plan of care. Patient was seen and examined.
--- NOTE | 2019-03-08 21:00 | PN ---
PROGRESS NOTE DATE OF SERVICE: 03/08/2019. This 68-year-old gentleman who was admitted with CHF acute exacerbations on IV diuretics. Patient is feeling slightly better. The edema is also better. No chest pain. No palpitations. No fever. The patient had sharp left-sided chest pains last night. PHYSICAL EXAM: Alert and oriented times three. Pulse 76, blood pressure 114/70, respirations 16, temperature 97.9, pulse ox 94% on room air. HEENT: Conjunctivae normal. Oral mucosa moist. NECK is no jugular venous distention. No carotid bruit. No lymph node enlargement. CARDIOVASCULAR: S1, S2 muffled. RESPIRATORY: Breath sounds diminished in the bases. A few scattered rhonchi and crackles. ABDOMEN: Soft, nontender. LEGS: Minimal edema. Nervous system: No focal deficits. LAB STUDIES: WBC 2.9, hemoglobin is 8.2, platelets are 206. Sodium 137, potassium 3.7. ASSESSMENT: 1. Congestive heart failure acute exacerbation with acute on chronic diastolic dysfunction ejection fraction 50-60 percent. 2. Chronic atrial fibrillation. 3. Hypertension. 4. History of pulmonary embolus. 5. Anemia, macrocytic. 6. Leukopenia. 7. History of atrial fibrillation. 8. History of degenerative joint disease. 9. History of pulmonary embolism. 10.History of pancreatitis. 11.History of EtOH abuse. 12.History of recent diagnosis of right renal carcinoma in surgery. 13.History of benign prostatic hypertrophy. 14.History of diverticulitis. 15.History of degenerative joint disease. 16.History of dizziness. 17.History of bariatric surgery. 18.History of bowel resection. 19.History of cholecystectomy. 20.Cryoablation of the right kidney lesion recently. 21.Remote history of nicotine dependence. 22.FULL CODE. RECOMMENDATIONS AND DISCUSSION: Recommend to continue current medications, management and symptomatic treatment. Monitor fluid and electrolytes balance closely. Otherwise, currently the patient is on p.o. diuretics. We will monitor the patient closely. Increase ambulation. The patient might be able to be discharged in the next 24 hours. Further recommendations to follow. MMODL / IJN: [id number] /
[2019-03-09] MEDS: PANTOPRAZOLE 40 MG TABLET PO SCH ×2 (06:20→17:36)
[2019-03-09 07:29] LABS: Anisocytosis Slight; HCT 28.7 % (39.0-53.0); HGB 8.6 gm/dL (13.0-17.5); Hypochromasia Slight; MCH 31.6 pg (25.0-35.0); MCHC 30.1 g/dL (31.0-37.0); MCV 104.8 fL (80.0-100.0); Macrocytosis Marked; Mean Platelet Volume 7.8; Platelet Count 250 k/uL (150-450); RBC 2.74 m/uL (4.30-5.90); RDW 19.4 % (11.5-15.5); WBC 3.1 k/uL (3.8-10.6)
[2019-03-09 07:47] LABS: Calcium 8.3 mg/dL (8.4-10.2); Potassium 3.9 mmol/L (3.5-5.1)
[2019-03-09 09:09] LABS: Eosinophils # (M) 0.12 k/uL (0-0.7); Lymphocytes # (M) 0.65 k/uL (1.0-4.8); Neutrophils # (M) 1.92 k/uL (1.3-7.7); Neutrophils % (M) 62 %; Nucleated Red Blood Cells 0 /100 WBC (0-0); Total Cells Counted 100
[2019-03-09] MEDS: ALLOPURINOL 300 MG TAB PO SCH (09:21)
[2019-03-09] MEDS: CEFDINIR 300 MG CAP PO SCH ×2 (09:21→20:14)
[2019-03-09] MEDS: CHOLECALCIFEROL 1,000 UNIT TAB PO SCH (09:22)
[2019-03-09] MEDS: SPIRONOLACTONE 25 MG TAB PO SCH (09:23)
[2019-03-09] MEDS: FUROSEMIDE 40 MG TAB PO SCH ×2 (09:23→17:36)
[2019-03-09] MEDS: MULTIVITAMINS, THERA 1 EACH TAB PO SCH (09:23)
[2019-03-09] MEDS: FERROUS SULFATE 325 MG TAB PO SCH (09:23)
[2019-03-09] MEDS: POTASSIUM CHLORIDE ER 10 MEQ TAB.ER.PRT PO SCH (09:23)
[2019-03-09] MEDS: APIXABAN 5 MG TAB PO SCH ×2 (09:23→20:14)
[2019-03-09] MEDS: HYDROcodone/APAP 7.5-325MG 1 EACH TAB PO PRN ×2 (09:35→20:14)
--- NOTE | 2019-03-09 15:53 | P.PN ---
Subjective Progress Note Date: 03/09/19 This is a 68-year-old gentleman with history of chronic atrial fibrillation and chronic anemia who came to the hospital for progressive edema of both legs. Apparently over the last month, the swelling and edema has gotten worse. He does complain of exertional shortness of breath but doesn't complain of any orthopnea or paroxysmal nocturnal dyspnea. Denies any chest pain. He follows with Dr. Mcadams for his chronic and persistent atrial fibrillation. Patient has been on anticoagulation. He is also noted to be anemic which seemed to be chronic and also has hypoalbuminemia. Most probably his edema is related to anemia, hypoalbuminemia, and other factors. Chest x-ray showed evidence of mild pleural effusion. Patient is being treated with IV Lasix. I'm going to add Aldactone 25 mg once daily and follow his electrolytes closely. Will get an echocardiogram to assess LV function. His proBNP is elevated. There may be an element of congestive heart failure. Further recommendations depend upon clinical course. 03/07/2019 Patient was seen and examined this morning, overall doing well. Diuresing on IV Lasix, creatinine today is 1.0. Blood pressure 118/60 with a heart rate in the 70s to 80s, 96% on room air. White blood cell count 2.7, hemoglobin 8.3, platelet count 223. Sodium 140, potassium 4.9, BUN 11 and creatinine 1.0. 03/08/2019 Patient was seen and examined this morning, doing well overall.blood pressure 136/66, heart rate in the 70s, 93% on room air.blood cell count 2.9, hemoglobin 8.2, platelet count 206. Sodium 137, potassium 3.7, BUN 12 and creatinine 0.9. 03/09/2019 Patient seen and examined this morning, overall doing significantly better. Anticipating discharge home in 24 hours. Objective - Vital Signs Vital signs: Vital Signs Temp 98.0 F 03/09/19 08:05 Pulse 110 H 03/09/19 08:05 Resp 18 03/09/19 08:05 BP 97/58 03/09/19 08:05 Pulse Ox 95 03/09/19 08:05 Intake & Output 03/08/19 03/09/19 03/09/19 18:59 06:59 18:59 Intake Total 848 644 840 Output Total 179 382 6786 Balance -42 -815 -2218 Weight 117.3 kg Intake: Oral 680 540 840 Output: Urine 171 550 5507 Other: # Voids 450 2 # Bowel Movements 1 - Exam GENERAL EXAM: Patient is alert and oriented and doesn't appear to be in any acute distress HEENT: Normocephalic. Normal reaction of pupils, equal size, normal range of extraocular motion. No erythema or exudates in the throat. NECK: No masses, no nuchal rigidity. CHEST: No chest wall deformity. LUNGS: Equal air entry with no crackles or wheeze. HEART: S1 and S2 normal with no audible mumurs or gallops. Regular rhythm, femorals equal on both sides.. ABDOMEN: No hepatosplenomegaly, normal bowel sounds, no guarding or rigidity. SKIN: No rashes CENTRAL NERVOUS SYSTEM: No focal deficits. EXTREMITIES: 3-4+ edema. Both legs are wrapped - Labs CBC & Chem 7: 03/09/19 06:56 03/09/19 06:56 Labs: Abnormal Lab Results - Last 24 Hours (Table) 03/09/19 03/09/19 Range/Units 06:56 06:56 WBC 3.1 L (3.8-10.6) k/uL RBC 2.74 L (4.30-5.90) m/uL Hgb 8.6 L (13.0-17.5) gm/dL Hct 28.7 L (39.0-53.0) % MCV 104.8 H (80.0-100.0) fL MCHC 30.1 L (31.0-37.0) g/dL RDW 19.4 H (11.5-15.5) % Lymphocytes # (Manual) 0.65 L (1.0-4.8) k/uL Macrocytosis Marked A Carbon Dioxide 34 H (22-30) mmol/L Calcium 8.3 L (8.4-10.2) mg/dL Assessment and Plan Plan: Assessment and plan #1 diastolic congestive heart failure acute on chronic #2 chronic persistent A. fib #3 anemia Plan from cardiology's perspective, we'll recommend to continue this patient on his current medications. He may be able to be discharged home once cleared by primary. We will make a follow-up appointment in the office post discharge. DNP note has been reviewed, I agree with a documented findings and plan of care. Patient was seen and examined.
--- NOTE | 2019-03-09 17:40 | PN ---
PROGRESS NOTE DATE OF SERVICE: 03/09/2019. This 68 -year-old gentleman who was admitted with CHF acute exacerbation, had acute on chronic diastolic dysfunction, ejection fraction 50-60 percent. The patient being closely monitored. No chest pain. No palpitations. No fever. PHYSICAL EXAM: Alert and oriented times three. Pulse 110, blood pressure 97/50, respiration 18, temperature 98 degrees, pulse ox 94% on room air. HEENT: Conjunctivae normal. NECK: No jugular venous distention. CARDIOVASCULAR: S1, S2 muffled. RESPIRATORY: Breath sounds diminished in the bases. Bilateral scattered rhonchi and crackles. ABDOMEN: Soft. LEGS: Bilateral leg edema. NERVOUS SYSTEM: No focal deficits. LABS: WBC 3.2, hemoglobin is 8.6, platelets are 250. ASSESSMENT: 1. Congestive heart failure acute exacerbation with acute on chronic diastolic dysfunction ejection fraction 50-60 percent. 2. Chronic atrial fibrillation. 3. Hypertension. 4. History of pulmonary embolism. 5. Anemia, macrocytic. 6. Leukopenia. 7. History atrial fibrillation. 8. History of degenerative joint disease. 9. History of pulmonary embolism. 10.History of pancreatitis. 11.History of EtOH abuse. 12.History of recent diagnosis of right renal cell carcinoma surgery. 13.History of benign prostatic hypertrophy. 14.History of diverticulitis. 15.History of degenerative joint disease. 16.History of dizziness. 17.History of bariatric surgery. 18.History of bowel resection. 19.History of cholecystectomy. 20.History of cryoablation of the right kidney lesion recently. 21.Remote history of nicotine dependence. 22.FULL CODE. RECOMMENDATIONS AND DISCUSSION: Recommend to continue current medications. Continue to monitor. Symptomatic treatment. Otherwise, at this time, I recommend continue with current medications. Continue with diuretics. Monitor fluid and electrolytes balance closely. Increase ambulation. Guarded prognosis. Further recommendations to follow. MMODL / IJN: [id number] /
[2019-03-10] MEDS: PANTOPRAZOLE 40 MG TABLET PO SCH ×2 (06:35→16:11)
[2019-03-10 07:11] LABS: Anisocytosis Slight; HCT 26.6 % (39.0-53.0); HGB 8.5 gm/dL (13.0-17.5); Hypochromasia Slight; MCH 32.8 pg (25.0-35.0); MCV 102.4 fL (80.0-100.0); Macrocytosis Moderate; Mean Platelet Volume 7.8; Platelet Count 240 k/uL (150-450); RBC 2.59 m/uL (4.30-5.90); RDW 18.9 % (11.5-15.5); WBC 3.3 k/uL (3.8-10.6)
[2019-03-10 07:39] LABS: Calcium 8.3 mg/dL (8.4-10.2); Potassium 3.9 mmol/L (3.5-5.1)
[2019-03-10] MEDS: MULTIVITAMINS, THERA 1 EACH TAB PO SCH (09:02)
[2019-03-10] MEDS: CHOLECALCIFEROL 1,000 UNIT TAB PO SCH (09:02)
[2019-03-10] MEDS: POTASSIUM CHLORIDE ER 10 MEQ TAB.ER.PRT PO SCH (09:02)
[2019-03-10] MEDS: ALLOPURINOL 300 MG TAB PO SCH (09:02)
[2019-03-10] MEDS: CEFDINIR 300 MG CAP PO SCH ×2 (09:02→20:18)
[2019-03-10] MEDS: FERROUS SULFATE 325 MG TAB PO SCH (09:03)
[2019-03-10] MEDS: SPIRONOLACTONE 25 MG TAB PO SCH (09:03)
[2019-03-10] MEDS: APIXABAN 5 MG TAB PO SCH ×2 (09:03→20:18)
[2019-03-10] MEDS: FUROSEMIDE 40 MG TAB PO SCH ×2 (09:03→16:10)
[2019-03-10 09:05] LABS: Lymphocytes # (M) 1.06 k/uL (1.0-4.8); Monocytes # (M) 0.33 k/uL (0-1.0); Neutrophils # (M) 1.82 k/uL (1.3-7.7); Neutrophils % (M) 55 %; Nucleated Red Blood Cells 0 /100 WBC (0-0); Total Cells Counted 100
[2019-03-10 09:06] LABS: Stomatocytes Present
--- NOTE | 2019-03-10 15:04 | P.PN ---
Subjective Progress Note Date: 03/10/19 This is a 68-year-old gentleman with history of chronic atrial fibrillation and chronic anemia who came to the hospital for progressive edema of both legs. Apparently over the last month, the swelling and edema has gotten worse. He does complain of exertional shortness of breath but doesn't complain of any orthopnea or paroxysmal nocturnal dyspnea. Denies any chest pain. He follows with Dr. Mcadams for his chronic and persistent atrial fibrillation. Patient has been on anticoagulation. He is also noted to be anemic which seemed to be chronic and also has hypoalbuminemia. Most probably his edema is related to anemia, hypoalbuminemia, and other factors. Chest x-ray showed evidence of mild pleural effusion. Patient is being treated with IV Lasix. I'm going to add Aldactone 25 mg once daily and follow his electrolytes closely. Will get an echocardiogram to assess LV function. His proBNP is elevated. There may be an element of congestive heart failure. Further recommendations depend upon clinical course. 03/07/2019 Patient was seen and examined this morning, overall doing well. Diuresing on IV Lasix, creatinine today is 1.0. Blood pressure 118/60 with a heart rate in the 70s to 80s, 96% on room air. White blood cell count 2.7, hemoglobin 8.3, platelet count 223. Sodium 140, potassium 4.9, BUN 11 and creatinine 1.0. 03/08/2019 Patient was seen and examined this morning, doing well overall.blood pressure 136/66, heart rate in the 70s, 93% on room air.blood cell count 2.9, hemoglobin 8.2, platelet count 206. Sodium 137, potassium 3.7, BUN 12 and creatinine 0.9. 03/09/2019 Patient seen and examined this morning, overall doing significantly better. Anticipating discharge home in 24 hours. 03/10/2019 Patient seen and examined this morning, overall doing well. Anticipating discharge today. Objective - Vital Signs Vital signs: Vital Signs Temp 98.1 F 03/10/19 11:40 Pulse 88 03/10/19 11:40 Resp 18 03/10/19 11:40 BP 95/60 03/10/19 11:40 Pulse Ox 95 03/10/19 11:40 Intake & Output 06/19/19 06/20/19 06/20/19 18:59 06:59 18:59 Intake Total 840 400 440 Output Total 2250 900 1800 Balance -1410 -500 -1360 Weight 116.5 kg Intake: Oral 840 400 440 Output: Urine 2250 900 1800 Other: Voiding Method Toilet Toilet Urinal Urinal - Exam GENERAL EXAM: Patient is alert and oriented and doesn't appear to be in any acute distress HEENT: Normocephalic. Normal reaction of pupils, equal size, normal range of extraocular motion. No erythema or exudates in the throat. NECK: No masses, no nuchal rigidity. CHEST: No chest wall deformity. LUNGS: Equal air entry with no crackles or wheeze. HEART: S1 and S2 normal with no audible mumurs or gallops. Regular rhythm, femorals equal on both sides.. ABDOMEN: No hepatosplenomegaly, normal bowel sounds, no guarding or rigidity. SKIN: No rashes CENTRAL NERVOUS SYSTEM: No focal deficits. EXTREMITIES: 3-4+ edema. Both legs are wrapped - Labs CBC & Chem 7: 03/10/19 06:41 03/10/19 06:41 Labs: Abnormal Lab Results - Last 24 Hours (Table) 03/10/19 03/10/19 Range/Units 06:41 06:41 WBC 3.3 L (3.8-10.6) k/uL RBC 2.59 L (4.30-5.90) m/uL Hgb 8.5 L (13.0-17.5) gm/dL Hct 26.6 L (39.0-53.0) % MCV 102.4 H (80.0-100.0) fL RDW 18.9 H (11.5-15.5) % Sodium 136 L (137-145) mmol/L Carbon Dioxide 33 H (22-30) mmol/L Calcium 8.3 L (8.4-10.2) mg/dL Assessment and Plan Plan: Assessment and plan #1 diastolic congestive heart failure acute on chronic #2 chronic persistent A. fib #3 anemia Plan from cardiology's perspective, we'll recommend to continue this patient on his current medications. He may be able to be discharged home once cleared by primary. We will make a follow-up appointment in the office post discharge. DNP note has been reviewed, I agree with a documented findings and plan of care. Patient was seen and examined.
[2019-03-10] MEDS: HYDROcodone/APAP 7.5-325MG 1 EACH TAB PO PRN ×2 (16:10→23:21)
--- NOTE | 2019-03-10 17:11 | PN ---
PROGRESS NOTE DATE OF SERVICE: 03/10/2019 This 68-year-old gentleman, admitted with CHF, acute exacerbation, with acute on chronic diastolic dysfunction, with being closely monitored. No chest pain. No palpitations. No fever. The patient complains of tiredness and weakness. On exam, alert and oriented x3. The pulse is 88, blood pressure 95/60, respirations 18, temperature 98.1, pulse ox 94% on room air. HEENT: Conjunctivae normal. NECK: No jugular venous distention. CARDIOVASCULAR SYSTEM: S1, S2 muffled. RESPIRATORY SYSTEM: Breath sounds diminished at the bases. A few scattered rhonchi and crackles. ABDOMEN: Soft, obese. LEGS: Bilateral leg edema. NERVOUS SYSTEM: No focal deficit. LABS: WBC 3.3, hemoglobin 8.5. Sodium 136. ASSESSMENT: 1. Congestive heart failure, acute exacerbation, with acute on chronic diastolic dysfunction, ejection fraction 50% to 60%. 2. Chronic atrial fibrillation. 3. Gait dysfunction. 4. Hypertension. 5. History of pulmonary embolism. 6. Anemia, macrocytic. 7. Leukopenia. 8. History of atrial fibrillation. 9. History of degenerative joint disease. 10.History of pancreatitis. 11.History of ethanol abuse. 12.History of recent diagnosis of right renal cell carcinoma and surgery. 13.History of benign prostatic hypertrophy. 14.History of diverticulitis. 15.History of dizziness. 16.History of bariatric surgery. 17.History of bowel resection. 18.History of cholecystectomy. 19.History of cryoablation of the right kidney adhesions recently. 20.Remote history of nicotine dependence. 21.FULL CODE. RECOMMENDATIONS AND DISCUSSION: I recommend to continue current medications, continue with the monitoring, symptomatic treatment. Otherwise at this time I recommend continuing with PT/OT evaluation, possible ECF rehab. Continue the rest of the medications. Guarded prognosis. Further recommendations to follow. Discussed with the patient. Discussed with staff. Further recommendations to follow. MMODL / IJN: [id number] /
[2019-03-11] MEDS: HYDROcodone/APAP 7.5-325MG 1 EACH TAB PO PRN (05:16)
[2019-03-11 06:52] LABS: Calcium 8.3 mg/dL (8.4-10.2); Potassium 4.2 mmol/L (3.5-5.1)
[2019-03-11 07:04] LABS: Anisocytosis Slight; Basophils % (A) 1 %; Eosinophils # (A) 0.1 k/uL (0-0.7); Eosinophils % (A) 2 %; HCT 26.7 % (39.0-53.0); HGB 8.4 gm/dL (13.0-17.5); Hypochromasia Slight; Lymphocytes # (A) 0.9 k/uL (1.0-4.8); Lymphocytes % (A) 22 %; MCH 32.2 pg (25.0-35.0); MCHC 31.4 g/dL (31.0-37.0); MCV 102.6 fL (80.0-100.0); Macrocytosis Moderate; Mean Platelet Volume 8.4; Monocytes # (A) 0.4 k/uL (0-1.0); Monocytes % (A) 10 %; Neutrophils # (A) 2.6 k/uL (1.3-7.7); Neutrophils % (A) 62 %; Platelet Count 230 k/uL (150-450); RBC 2.61 m/uL (4.30-5.90); RDW 19.1 % (11.5-15.5); WBC 4.2 k/uL (3.8-10.6)
[2019-03-11 08:03] VITALS: RESP 16
[2019-03-11] MEDS: CEFDINIR 300 MG CAP PO SCH (08:13)
[2019-03-11] MEDS: PANTOPRAZOLE 40 MG TABLET PO SCH (08:14)
[2019-03-11] MEDS: APIXABAN 5 MG TAB PO SCH (08:14)
[2019-03-11] MEDS: ALLOPURINOL 300 MG TAB PO SCH (08:14)
[2019-03-11] MEDS: POTASSIUM CHLORIDE ER 10 MEQ TAB.ER.PRT PO SCH (09:18)
[2019-03-11] MEDS: FUROSEMIDE 40 MG TAB PO SCH (09:18)
[2019-03-11 11:25] VITALS: BP 104/69; PULSE 80; TEMP 98
[2019-03-11] MEDS: MULTIVITAMINS, THERA 1 EACH TAB PO SCH (12:25)
[2019-03-11] MEDS: SPIRONOLACTONE 25 MG TAB PO SCH (12:25)
[2019-03-11] MEDS: CHOLECALCIFEROL 1,000 UNIT TAB PO SCH (13:31)
[2019-03-11] MEDS: FERROUS SULFATE 325 MG TAB PO SCH (13:31)
--- NOTE | 2019-03-12 01:38 | DS ---
DISCHARGE SUMMARY DATE OF SERVICE: 03/11/2019. FINAL DIAGNOSES: 1. Congestive heart failure acute exacerbation with acute on chronic diastolic dysfunction ejection fraction 50 to 60%. 2. Chronic atrial fibrillation. 3. Gait dysfunction. 4. Hypertension. 5. History of pulmonary embolism. 6. History of anemia, macrocytic. 7. Leukopenia. 8. History of atrial fibrillation. 9. History of degenerative joint disease. 10.History of pancreatitis. 11.History of EtOH abuse. 12.History of recent diagnosis of right renal cell carcinoma surgery. History of benign prostatic hypertrophy. 1. History of diverticulitis. 2. History of dizziness. 3. History of bariatric surgery. 4. History of bowel resection. 5. History of cholecystectomy. 6. Cryoablation of the right kidney lesion recently. 7. Remote history of nicotine dependence. 8. FULL CODE. DISCHARGE DISPOSITION: The patient will be discharged in stable condition with guarded prognosis. Total time taken 35 minutes. HISTORY OF PRESENT ILLNESS: This 68-year-old gentleman with a past medical history of multiple medical problems, admitted with CHF acute exacerbation. Patient treated with IV diuretics. Patient improved significantly. Cardiology saw the patient. PT/OT evaluated the patient. business and services instructor also consulted. The home followup with home care is also being suggested. The patient improved significantly. Patient being discharged in stable condition with guarded prognosis. A 2D echo was reviewed. On exam, vitals are stable. Cardiovascular system: S1, S2 normal. Respirations: A few scattered rhonchi and crackles. Abdomen is soft, nontender. LEGS: Minimal edema. NERVOUS SYSTEM: No focal deficits. DISCHARGE ADVICE AND MEDICATIONS: 1. Diet is cardiac diet. 2. Activity limited until followup. 3. Fluid restriction 1200 mL per 24 hours. 4. Follow up with Dr. Hood in 2-3 days. 5. Follow up with Dr. Mcadams as recommended. 6. Follow up home care is being arranged. DISCHARGE MEDICATIONS: 1. Iron sulfate 320 mg p.o. daily. 2. Lopressor 25 mg p.o. b.i.d. 3. [place] 7.5 t.i.d. p.r.n. 4. Omnicef 300 mg p.o. b.i.d. 5. Vitamin D3 5000 daily. 6. Zyloprim 300 mg p.o. daily. 7. Aldactone 25 mg p.o. daily. 8. Eliquis 5 mg p.o. b.i.d. 9. K-Tab 10 mEq p.o. daily. 10.Lasix 40 mg p.o. daily. 11.Multivitamins 1 p.o. daily. 12.Protonix 40 mg p.o. b.i.d. Once again, the patient is being discharged in stable condition with guarded prognosis. MMODL / IJN: [id number] /
[2019-03-12] MEDS ORDERED: FUROSEMIDE 40 MG TAB PO SCH (09:00)
== END 2019-03-11 14:09 | disposition home health service (06) | DRG 292 ==
LOC: EC 13:14 → 3SCARD 15:57 → OBSVTOIN 03-06 17:24
PROVIDERS: ADMIT Internal Medicine; ATTEND Internal Medicine
DX: I11.0 Hypertensive heart disease with heart failure (principal); C64.1 Malignant neoplasm of right kidney, except renal pelvis; I50.33 Acute on chronic diastolic (congestive) heart failure; E88.09 Other disorders of plasma-protein metabolism, not elsewhere classified; I48.2 Chronic atrial fibrillation; D53.9 Nutritional anemia, unspecified; D72.819 Decreased white blood cell count, unspecified; E66.9 Obesity, unspecified; N40.0 Benign prostatic hyperplasia without lower urinary tract symptoms; R26.9 Unspecified abnormalities of gait and mobility; M15.9 Polyosteoarthritis, unspecified; K57.90 Diverticulosis of intestine, part unspecified, without perforation or abscess without bleeding; Z79.01 Long term (current) use of anticoagulants; Z79.899 Other long term (current) drug therapy; Z79.52 Long term (current) use of systemic steroids; Z86.010 Personal history of colon polyps; Z86.711 Personal history of pulmonary embolism; Z87.891 Personal history of nicotine dependence; Z90.49 Acquired absence of other specified parts of digestive tract; Z96.652 Presence of left artificial knee joint; Z98.84 Bariatric surgery status; Z80.3 Family history of malignant neoplasm of breast; Z80.41 Family history of malignant neoplasm of ovary; Z82.49 Family history of ischemic heart disease and other diseases of the circulatory system; Z82.5 Family history of asthma and other chronic lower respiratory diseases
CPT/HCPCS: 36415; 71046; 80048; 80053; 81003; 83735; 83880; 84132; 85025; 93005; 93306; 96374; 99284

== ENCOUNTER 2019-04-23 12:08 | Observation (INO) | payer MEDICARE, OTHER ==
--- NOTE | 2019-04-23 12:39 | ED ---
General Adult HPI - General Chief complaint: Chest Pain Stated complaint: chest pain Time Seen by Provider: 04/23/19 12:23 Source: patient, RN notes reviewed Mode of arrival: ambulatory Limitations: no limitations - History of Present Illness Initial comments: Patient is a pleasant 68-year-old male presenting to the emergency Department with complaints of chest discomfort. Symptoms have been occurring over the past week. Symptoms have been worse for the past 2 days. Discomfort is near resolved at this point. Patient does have dyspnea when lying down. Patient does have leg swelling however states it is significantly improved from previously. Patient does have history of CHF. Patient also has history of pulmonary embolism however is on Eliquis for that. Discomfort feels like an ache. Discomfort is increased somewhat with coughing and sneezing. - Related Data Home Medications Medication Instructions Recorded Confirmed Allopurinol [Zyloprim] 300 mg PO DAILY 02/22/14 04/23/19 Cholecalciferol [Vitamin D3 (25 5,000 unit PO DAILY 07/26/14 04/23/19 Mcg = 1000 Iu)] Metoprolol Tartrate [Lopressor] 25 mg PO BID 06/28/17 04/23/19 Previous Rx's Medication Instructions Recorded Multivitamin [Men's Multi-Vitamin] 1 tab PO DAILY #30 07/01/17 Apixaban [Eliquis] 5 mg PO BID #0 06/28/18 Pantoprazole Sodium [Protonix] 40 mg PO BID #60 tablet.dr 06/28/18 Potassium Chloride [K-Tab ER] 10 meq PO DAILY #14 tablet.er 11/29/18 Furosemide [Lasix] 40 mg PO DAILY #30 tab 03/11/19 HYDROcodone/APAP 7.5-325MG [[place] 1 tab PO TID PRN #10 tab 03/16/19 7.5-325] Allergies Allergy/AdvReac Type Severity Reaction Status Date / Time No Known Allergies Allergy Verified 04/23/19 12:53 Review of Systems ROS Statement: Those systems with pertinent positive or pertinent negative responses have been documented in the HPI. ROS Other: All systems not noted in ROS Statement are negative. Constitutional: Denies: fever Eyes: Denies: eye pain ENT: Denies: ear pain Respiratory: Reports: as per HPI Cardiovascular: Reports: as per HPI Endocrine: Denies: fatigue Gastrointestinal: Denies: abdominal pain Genitourinary: Denies: dysuria Musculoskeletal: Denies: back pain Skin: Denies: rash Neurological: Denies: weakness Past Medical History Past Medical History: Atrial Fibrillation, Blood Disorder, Cancer, Osteoarthritis (OA), Pulmonary Embolus (PE) Additional Past Medical History / Comment(s): Afib/RVR, pulmonary embolism L lung, pancreatitis multiple times, ETOH abuse, recent diagnosed with R renal carcinoma with sx, BPH, past R lung pneumo with chest tube, diverticulitis, benign colon polyps, arthritis multiple joints, abdominal hernias. Dizziness fall and right rib fractures 09/15/19, History of Any Multi-Drug Resistant Organisms: None Reported Past Surgical History: Bariatric Surgery, Bowel Resection, Cholecystectomy, Hernia Repair, Joint Replacement Additional Past Surgical History / Comment(s): Recent (2017) r kidney lesion cryoablation at [facility], 2012 bowel resection d/t viscus perf with colostomy later reversed , gastric sleeve converted to darrell-en-Y 08/2014-post op wound infection, paraesphogeal hiat hernia repair, R inguinal and umbilical hernia repairs, colonoscopies, L total knee arthroplasty., Past Anesthesia/Blood Transfusion Reactions: No Reported Reaction Past Psychological History: No Psychological Hx Reported Smoking Status: Former smoker Past Alcohol Use History: None Reported Past Drug Use History: None Reported - Past Family History Father Family Medical History: COPD, Myocardial Infarction ([place]) Additional Family Medical History / Comment(s): Father from a [place] at the age of 69yrs. Mother Family Medical History: Cancer Additional Family Medical History / Comment(s): Mother from ovarian cancer at the age of 69yrs. Sister(s) Family Medical History: Cancer Additional Family Medical History / Comment(s): at age 74yrs. Had breast cancer and a defibrillator General Exam Limitations: no limitations General appearance: alert, in no apparent distress Head exam: Present: atraumatic Eye exam: Present: normal appearance, PERRL ENT exam: Present: normal oropharynx Neck exam: Present: normal inspection Respiratory exam: Present: normal lung sounds bilaterally. Absent: chest wall tenderness Cardiovascular Exam: Present: regular rate, normal rhythm Expanded Peripheral pulses: 2+: Radial (R), Radial (L), Posterior Tibialis (R), Posterior Tibialis (L) GI/Abdominal exam: Present: soft. Absent: distended, tenderness Extremities exam: Present: pedal edema. Absent: calf tenderness Neurological exam: Present: alert Psychiatric exam: Present: normal affect, normal mood Skin exam: Present: abrasion (Left arm) Course Vital Signs 04/23/19 04/23/19 12:18 13:00 Temperature 98.7 F Pulse Rate 78 71 Respiratory 16 16 Rate Blood Pressure 133/78 119/69 O2 Sat by Pulse 99 98 Oximetry EKG Findings - EKG Comments: EKG Findings:: Normal sinus rhythm 75. [place] 186. QRS 80. QT 380. QTC 424. Normal axis. Normal QRS. No acute ST change. Medical Decision Making - Medical Decision Making Patient reevaluated and resting comfortably in bed. Patient updated on results and plan. Case was discussed with Dr. Ontiveros, covering for Dr. Albarado, who will admit. - Lab Data Result diagrams: 04/23/19 12:37 04/23/19 12:37 Lab Results 04/23/19 04/23/19 04/23/19 Range/Units 12:37 12:37 12:37 WBC 4.7 (3.8-10.6) k/uL RBC 3.12 L (4.30-5.90) m/uL Hgb 9.6 L (13.0-17.5) gm/dL Hct 31.0 L (39.0-53.0) % MCV 99.6 D (80.0-100.0) fL MCH 30.8 (25.0-35.0) pg MCHC 30.9 L (31.0-37.0) g/dL RDW 15.5 (11.5-15.5) % Plt Count 248 (150-450) k/uL Neutrophils % 72 % Lymphocytes % 15 % Monocytes % 7 % Eosinophils % 3 % Basophils % 0 % Neutrophils # 3.4 (1.3-7.7) k/uL Lymphocytes # 0.7 L (1.0-4.8) k/uL Monocytes # 0.3 (0-1.0) k/uL Eosinophils # 0.1 (0-0.7) k/uL Basophils # 0.0 (0-0.2) k/uL Hypochromasia Slight Macrocytosis Slight PT (9.0-12.0) sec INR (<1.2) APTT (22.0-30.0) sec Sodium 141 (137-145) mmol/L Potassium 4.1 (3.5-5.1) mmol/L Chloride 114 H (98-107) mmol/L Carbon Dioxide 19 L (22-30) mmol/L Anion Gap 8 mmol/L BUN 16 (9-20) mg/dL Creatinine 0.93 (0.66-1.25) mg/dL Est GFR (CKD-EPI)AfAm >90 (>60 ml/min/1.73 sqM) Est GFR (CKD-EPI)NonAf 85 (>60 ml/min/1.73 sqM) Glucose 94 (74-99) mg/dL Calcium 8.6 (8.4-10.2) mg/dL Magnesium 1.5 L (1.6-2.3) mg/dL Total Bilirubin 0.5 (0.2-1.3) mg/dL AST 39 (17-59) U/L ALT 23 (21-72) U/L Alkaline Phosphatase 200 H (38-126) U/L Creatine Kinase 32 L (55-170) U/L Troponin I (0.000-0.034) ng/mL NT-Pro-B Natriuret Pep 1130 pg/mL Total Protein 5.3 L (6.3-8.2) g/dL Albumin 2.3 L (3.5-5.0) g/dL 04/23/19 04/23/19 Range/Units 12:37 12:37 WBC (3.8-10.6) k/uL RBC (4.30-5.90) m/uL Hgb (13.0-17.5) gm/dL Hct (39.0-53.0) % MCV (80.0-100.0) fL MCH (25.0-35.0) pg MCHC (31.0-37.0) g/dL RDW (11.5-15.5) % Plt Count (150-450) k/uL Neutrophils % % Lymphocytes % % Monocytes % % Eosinophils % % Basophils % % Neutrophils # (1.3-7.7) k/uL Lymphocytes # (1.0-4.8) k/uL Monocytes # (0-1.0) k/uL Eosinophils # (0-0.7) k/uL Basophils # (0-0.2) k/uL Hypochromasia Macrocytosis PT 11.1 (9.0-12.0) sec INR 1.0 (<1.2) APTT 26.3 (22.0-30.0) sec Sodium (137-145) mmol/L Potassium (3.5-5.1) mmol/L Chloride (98-107) mmol/L Carbon Dioxide (22-30) mmol/L Anion Gap mmol/L BUN (9-20) mg/dL Creatinine (0.66-1.25) mg/dL Est GFR (CKD-EPI)AfAm (>60 ml/min/1.73 sqM) Est GFR (CKD-EPI)NonAf (>60 ml/min/1.73 sqM) Glucose (74-99) mg/dL Calcium (8.4-10.2) mg/dL Magnesium (1.6-2.3) mg/dL Total Bilirubin (0.2-1.3) mg/dL AST (17-59) U/L ALT (21-72) U/L Alkaline Phosphatase (38-126) U/L Creatine Kinase (55-170) U/L Troponin I <0.012 (0.000-0.034) ng/mL NT-Pro-B Natriuret Pep pg/mL Total Protein (6.3-8.2) g/dL Albumin (3.5-5.0) g/dL - Radiology Data Radiology results: image reviewed (Chest x-ray shows right-sided pleural reaction) Disposition Clinical Impression: Chest pain Disposition: ADMITTED IP TO THIS HOSP Is patient prescribed a controlled substance at d/c from ED?: No Referrals: Rebekah Albarado DO [Primary Care Provider] - 1-2 days Decision Time: 13:59
[2019-04-23] MEDS ORDERED: NITROGLYCERIN OINT 1 INCH/GM PACKET TOPICAL STA (12:43)
[2019-04-23] MEDS ORDERED: ASPIRIN 81 MG PO STA (12:43)
[2019-04-23 12:55] LABS: Basophils % (A) 0 %; Eosinophils # (A) 0.1 k/uL (0-0.7); Eosinophils % (A) 3 %; HGB 9.6 gm/dL (13.0-17.5); Hypochromasia Slight; Lymphocytes # (A) 0.7 k/uL (1.0-4.8); Lymphocytes % (A) 15 %; MCH 30.8 pg (25.0-35.0); MCHC 30.9 g/dL (31.0-37.0); Macrocytosis Slight; Mean Platelet Volume 8.1; Monocytes # (A) 0.3 k/uL (0-1.0); Monocytes % (A) 7 %; Neutrophils # (A) 3.4 k/uL (1.3-7.7); Neutrophils % (A) 72 %; Platelet Count 248 k/uL (150-450); RBC 3.12 m/uL (4.30-5.90); RDW 15.5 % (11.5-15.5); WBC 4.7 k/uL (3.8-10.6)
[2019-04-23 12:57] LABS: MCV 99.6 fL (80.0-100.0)
[2019-04-23 13:03] LABS: ALT 23 U/L (21-72); AST 39 U/L (17-59); African American GFR (CKD) >90 (>60 ml/min/1.73 sqM); Albumin 2.3 g/dL (3.5-5.0); Alkaline Phosphatase 200 U/L (38-126); Anion Gap 8 mmol/L; Blood Urea Nitrogen 16 mg/dL (9-20); Calcium 8.6 mg/dL (8.4-10.2); Carbon Dioxide 19 mmol/L (22-30); Chloride 114 mmol/L (98-107); Creatine Kinase 32 U/L (55-170); Glucose 94 mg/dL (74-99); Magnesium 1.5 mg/dL (1.6-2.3); Potassium 4.1 mmol/L (3.5-5.1); Sodium 141 mmol/L (137-145); Total Bilirubin 0.5 mg/dL (0.2-1.3); Total Protein 5.3 g/dL (6.3-8.2)
[2019-04-23 13:04] LABS: Partial Thromboplastin Time 26.3 sec (22.0-30.0); Prothrombin Time 11.1 sec (9.0-12.0)
--- NOTE | 2019-04-23 13:46 | XR ---
EXAMINATION TYPE: XR chest 2V DATE OF EXAM: 04/23/2019 HISTORY: Chest Pain. REFERENCE: Previous study dated 03/12/2019. FINDINGS: There is a chronic right pleural reaction. Heart size upper limits of normal. The left lung is clear. IMPRESSION: 1. CHRONIC RIGHT PLEURAL REACTION. 2. BORDERLINE CARDIOMEGALY.
[2019-04-23] MEDS ORDERED: NITROGLYCERIN SL TABS 0.4 MG TAB SUBLINGUAL PRN (14:01)
--- NOTE | 2019-04-23 14:53 | P.HPIM ---
History of Present Illness 68-year-old pleasant gentleman was discharged from my alcohol rehabilitation program couple days ago came in with compensative chest discomfort going across the chest and to the back nonexertional has been going on for last few days has been slowly worsening no radiation noises or diaphoresis versus nausea lightheadedness there is some pleuritic competent because of which I'm opting d- dimer patient had his stress test 6 years ago which was within normal limits. Patient's EKG did not show any acute ST-T wave changes sinus rhythm. Patient does have history of atrial fibrillation because of which patient is on Eliquis. Patient had couple drinks yesterday and has some baseline tremor but there is not an alcohol withdrawals. Do not expect any withdrawals patient chest discomfort increases with coughing and sneezing. I'm also obtaining lipase levels patient is already taking Protonix at this time. Chest pain is constant and not related to food, dull pain Review of Systems REVIEW OF SYSTEMS: CONSTITUTIONAL: No fever, no malaise, no fatigue. HEENT: No recent visual problems or hearing problems. Denied any sore throat. CARDIOVASCULAR: No orthopnea, PND, no palpitations, no syncope. PULMONARY: No shortness of breath, no cough, no hemoptysis. GASTROINTESTINAL: No diarrhea, no nausea, no vomiting, no abdominal pain. NEUROLOGICAL: No headaches, no weakness, no numbness. HEMATOLOGICAL: Denies any bleeding or petechiae. GENITOURINARY: Denies any burning micturition, frequency, or urgency. MUSCULOSKELETAL/RHEUMATOLOGICAL: Denies any joint pain, swelling, or any muscle pain. ENDOCRINE: Denies any polyuria or polydipsia. The rest of the 14-point review of systems is negative. Past Medical History Past Medical History: Atrial Fibrillation, Blood Disorder, Cancer, Osteoarthritis (OA), Pulmonary Embolus (PE) Additional Past Medical History / Comment(s): Afib/RVR, pulmonary embolism L lung, pancreatitis multiple times, ETOH abuse, recent diagnosed with R renal carcinoma with sx, BPH, past R lung pneumo with chest tube, diverticulitis, benign colon polyps, arthritis multiple joints, abdominal hernias. Dizziness fall and right rib fractures 09/15/19, History of Any Multi-Drug Resistant Organisms: None Reported Past Surgical History: Bariatric Surgery, Bowel Resection, Cholecystectomy, Hernia Repair, Joint Replacement Additional Past Surgical History / Comment(s): Recent (2017) r kidney lesion cryoablation at [facility], 2013 bowel resection d/t viscus perf with colostomy later reversed , gastric sleeve converted to darrell-en-Y 08/2014-post op wound infection, paraesphogeal hiat hernia repair, R inguinal and umbilical hernia repairs, colonoscopies, L total knee arthroplasty., Past Anesthesia/Blood Transfusion Reactions: No Reported Reaction Past Psychological History: No Psychological Hx Reported Smoking Status: Former smoker Past Alcohol Use History: None Reported Past Drug Use History: None Reported - Past Family History Father Family Medical History: COPD, Myocardial Infarction ([place]) Additional Family Medical History / Comment(s): Father from a [place] at the age of 69yrs. Mother Family Medical History: Cancer Additional Family Medical History / Comment(s): Mother from ovarian cancer at the age of 69yrs. Sister(s) Family Medical History: Cancer Additional Family Medical History / Comment(s): at age 74yrs. Had breast cancer and a defibrillator Medications and Allergies Home Medications Medication Instructions Recorded Confirmed Type Allopurinol [Zyloprim] 300 mg PO DAILY 02/22/14 04/23/19 History Cholecalciferol [Vitamin D3 (25 5,000 unit PO DAILY 07/26/14 04/23/19 History Mcg = 1000 Iu)] Metoprolol Tartrate [Lopressor] 25 mg PO BID 06/28/17 04/23/19 History Multivitamin [Men's Multi-Vitamin] 1 tab PO DAILY #30 07/01/17 04/23/19 Rx Apixaban [Eliquis] 5 mg PO BID #0 06/28/18 04/23/19 Rx Pantoprazole Sodium [Protonix] 40 mg PO BID #60 tablet.dr 06/28/18 04/23/19 Rx Potassium Chloride [K-Tab ER] 10 meq PO DAILY #14 tablet.er 11/29/18 04/23/19 Rx Furosemide [Lasix] 40 mg PO DAILY #30 tab 03/11/19 04/23/19 Rx HYDROcodone/APAP 7.5-325MG [[place] 1 tab PO TID PRN #10 tab 03/16/19 04/23/19 Rx 7.5-325] Allergies Allergy/AdvReac Type Severity Reaction Status Date / Time No Known Allergies Allergy Verified 04/23/19 12:53 Physical Exam Vitals: Vital Signs Temp Pulse Resp BP Pulse Ox 04/23/19 14:00 68 111/66 99 04/23/19 13:30 72 109/67 99 04/23/19 13:00 71 16 119/69 98 04/23/19 12:18 98.7 F 78 16 133/78 99 Intake and Output 04/22/19 04/23/19 04/23/19 22:59 06:59 14:59 Other: Weight 108.862 kg PHYSICAL EXAMINATION: GENERAL: The patient is alert and oriented x3, not in any acute distress. Well developed, well nourished. Patient does have tremor HEENT: Pupils are round and equally reacting to light. EOMI. No scleral icterus. No conjunctival pallor. Normocephalic, atraumatic. No pharyngeal erythema. No thyromegaly. CARDIOVASCULAR: S1 and S2 present. No murmurs, rubs, or gallops. PULMONARY: Chest is clear to auscultation, no wheezing or crackles. ABDOMEN: Soft, nontender, nondistended, normoactive bowel sounds. No palpable organomegaly. MUSCULOSKELETAL: No joint swelling or deformity. EXTREMITIES: No cyanosis, clubbing, or lateral nonpitting pedal edema with some chronic venous stasis dermatosis total nonpitting Gross ross neurological examination did not reveal any focal deficits. SKIN: No rashes. Results CBC & Chem 7: 04/23/19 12:37 04/23/19 12:37 Labs: Abnormal Lab Results - Last 24 Hours (Table) 04/23/19 04/23/19 Range/Units 12:37 12:37 RBC 3.12 L (4.30-5.90) m/uL Hgb 9.6 L (13.0-17.5) gm/dL Hct 31.0 L (39.0-53.0) % MCHC 30.9 L (31.0-37.0) g/dL Lymphocytes # 0.7 L (1.0-4.8) k/uL Chloride 114 H (98-107) mmol/L Carbon Dioxide 19 L (22-30) mmol/L Magnesium 1.5 L (1.6-2.3) mg/dL Alkaline Phosphatase 200 H (38-126) U/L Creatine Kinase 32 L (55-170) U/L Total Protein 5.3 L (6.3-8.2) g/dL Albumin 2.3 L (3.5-5.0) g/dL Assessment and Plan Plan: -Chest pain: Rule out acute current syndromes unstable angina, will also rule out pulmonary embolism other possibilities being musculoskeletal and back pain related. Will order lipase as well since the back pain is going to the back. Patient is already on Protonix for gastroesophageal reflux disease related to chronic alcoholism this will be continued -Chronic alcoholism quit Few months as and was in rehabilitation program started drinking yesterday had couple drinks because of which I do not believe patient will have alcohol withdrawal -Atrial fibrillation presently rate controlled sinus rhythm on anticoagulations with Eliquis which will be continued. -Chronic venous insufficiency with stasis dermatosis patient will be resumed on 9 home dose of Lasix -Hypomagnesemia secondary to alcoholism is and will be supplemented
[2019-04-23] MEDS: MAGNESIUM SULFATE-D5W PMX 1 GM in DEXTROSE/WATER 1 100ML.BAG IVPB SCH ×2 (15:35→17:39)
[2019-04-23 15:36] VITALS: BMI 33.5
[2019-04-23] MEDS: HYDROcodone/APAP 7.5-325MG 1 EACH TAB PO PRN ×2 (15:56→21:00)
[2019-04-23] MEDS: NITROGLYCERIN OINT 1 INCH/GM PACKET TOPICAL SCH ×2 (17:48→22:48)
[2019-04-23] MEDS: METOPROLOL TARTRATE 25 MG TAB PO SCH (21:00)
[2019-04-23] MEDS: PANTOPRAZOLE 40 MG TABLET PO SCH (21:00)
[2019-04-23] MEDS: APIXABAN 5 MG TAB PO SCH (21:00)
[2019-04-24 05:25] LABS: Cholesterol 60 mg/dL (<200); HDL Cholesterol 42 mg/dL (40-60); Triglycerides 93 mg/dL (<150)
[2019-04-24] MEDS: NITROGLYCERIN OINT 1 INCH/GM PACKET TOPICAL SCH ×2 (06:23→12:13)
[2019-04-24] MEDS: HYDROcodone/APAP 7.5-325MG 1 EACH TAB PO PRN (07:47)
[2019-04-24] MEDS: METOPROLOL TARTRATE 25 MG TAB PO SCH (08:17)
[2019-04-24] MEDS: PANTOPRAZOLE 40 MG TABLET PO SCH (08:17)
[2019-04-24] MEDS: APIXABAN 5 MG TAB PO SCH (08:17)
[2019-04-24] MEDS ORDERED: FUROSEMIDE 10 MG/ML 4 ML VIAL IV SCH (09:00)
[2019-04-24] MEDS ORDERED: ALLOPURINOL 300 MG TAB PO SCH (09:00)
[2019-04-24] MEDS ORDERED: ASPIRIN 325 MG TAB PO SCH (09:00)
[2019-04-24 09:07] VITALS: RESP 16
--- NOTE | 2019-04-24 12:03 | P.DS ---
Providers Date of admission: 04/23/19 14:01 Attending physician: aKtherin Ontiveros Consults: 04/23/19 14:01 Consult Physician Urgent Consulting Provider: Teo Carpenter Consult Reason/Comments: cp Do you want consulting provider notified?: Yes Primary care physician: Rebekah Hood Hospital Course: Patient was admitted for chest pain patient has noncardiac chest pain. Patient is hypomagnesemic magnesium will be supplemented patient had a nonsustained VT and cardiology is recommending beta kary patient is already on beta kary patient is an alcoholic strongly advised him to quit alcohol patient quit alcohol started drinking 2 days ago before hospitalization. Patient d-dimer is minimally elevated because the pleuritic nature of the chest pain are good and order a CAT scan of the chest if that's negative patient will be discharged today. We rule out a concurrent syndromes PHYSICAL EXAMINATION: GENERAL: The patient is alert and oriented x3, not in any acute distress. Well developed, well nourished. HEENT: Pupils are round and equally reacting to light. EOMI. No scleral icterus. No conjunctival pallor. Normocephalic, atraumatic. No pharyngeal erythema. No thyromegaly. CARDIOVASCULAR: S1 and S2 present. No murmurs, rubs, or gallops. PULMONARY: Chest is clear to auscultation, no wheezing or crackles. ABDOMEN: Soft, nontender, nondistended, normoactive bowel sounds. No palpable organomegaly. MUSCULOSKELETAL: No joint swelling or deformity. EXTREMITIES: No cyanosis, clubbing, or pedal edema. NEUROLOGICAL: Gross neurological examination did not reveal any focal deficits. SKIN: No rashes. Please refer to dictation of my HPI for further details of hospitalization course and other medical problems that were addressed. Plan - Discharge Summary New Discharge Prescriptions: Continue Allopurinol [Zyloprim] 300 mg PO DAILY Cholecalciferol [Vitamin D3 (25 Mcg = 1000 Iu)] 5,000 unit PO DAILY Metoprolol Tartrate [Lopressor] 25 mg PO BID Multivitamin [Men's Multi-Vitamin] 1 tab PO DAILY #30 Apixaban [Eliquis] 5 mg PO BID #0 Pantoprazole Sodium [Protonix] 40 mg PO BID #60 tablet.dr Potassium Chloride [K-Tab ER] 10 meq PO DAILY #14 tablet.er Furosemide [Lasix] 40 mg PO DAILY #30 tab HYDROcodone/APAP 7.5-325MG [[place] 7.5-325] 1 tab PO TID PRN #10 tab PRN Reason: Pain Discharge Medication List Allopurinol [Zyloprim] 300 mg PO DAILY 02/22/14 [History] Cholecalciferol [Vitamin D3 (25 Mcg = 1000 Iu)] 5,000 unit PO DAILY 07/26/14 [History] Metoprolol Tartrate [Lopressor] 25 mg PO BID 06/28/17 [History] Multivitamin [Men's Multi-Vitamin] 1 tab PO DAILY #30 07/01/17 [Rx] Apixaban [Eliquis] 5 mg PO BID #0 06/28/18 [Rx] Pantoprazole Sodium [Protonix] 40 mg PO BID #60 tablet.dr 06/28/18 [Rx] Potassium Chloride [K-Tab ER] 10 meq PO DAILY #14 tablet.er 11/29/18 [Rx] Furosemide [Lasix] 40 mg PO DAILY #30 tab 03/11/19 [Rx] HYDROcodone/APAP 7.5-325MG [[place] 7.5-325] 1 tab PO TID PRN #10 tab 03/16/19 [Rx] Follow up Appointment(s)/Referral(s): Rebekah Hood DO [Primary Care Provider] - 3 Days Discharge Disposition: HOME SELF-CARE
[2019-04-24 12:24] VITALS: BP 103/64; PULSE 66; TEMP 98
[2019-04-24] MEDS: MAGNESIUM SULFATE-D5W PMX 1 GM in DEXTROSE/WATER 1 100ML.BAG IVPB SCH ×2 (13:01→14:13)
--- NOTE | 2019-04-24 13:10 | CT ---
EXAMINATION TYPE: CT angio chest DATE OF EXAM: 04/24/2019 11:48 AM COMPARISON: Previous noncontrast study dated 09/15/2018 HISTORY: PE CT DLP: 505.6 mGycm Automated exposure control for dose reduction was used. CONTRAST: CTA scan of the thorax is performed without and with IV Contrast, patient injected with 100 ml mL of Isovue 370, pulmonary embolism protocol. . FINDINGS: There is scarring in the right lower lobe and lingula. There are multiple old right-sided r ib fractures. There is no significant axillary, mediastinal or hilar adenopathy. There is no evidence of pulmonary embolus. The aorta is normal in caliber without evidence of dissection. There is no pleural or pericardial flu id. The heart is not enlarged. There is a small, sliding hiatal hernia. There is evidence of previous gastric surgery. IMPRESSION: 1. THIS EXAMINATION IS NEGATIVE FOR PULMONARY EMBOLUS. 2. EVIDENCE OF PREVIOUS TRAUMA.
--- NOTE | 2019-04-24 13:36 | P.CRDCN ---
History of Present Illness Consult date: 04/24/19 Consult reason: chest pain History of present illness: The patient is a 68-year-old male with past medical history of A. fib with RVR, pulmonary embolism, and EtOH abuse who is currently admitted after acute onset of chest discomfort. He states he has been having is a dull chest ache which was not associated with exertion. He states it is often worse when he lies flat. He denies any associated shortness of breath, palpitations, or dizziness. He recently spent 1 month and an inpatient facility for alcohol withdrawal. He states he had been drinking the past several days. PAST MEDICAL HISTORY: EtOH abuse, paroxysmal A. fib, pulmonary emboli, BPH, abdominal hernia, peptic ulcers REVIEW OF SYSTEMS: No fever or chills. No cough or expectoration. No diaphoresis. Epigastric discomfort while lying flat. No exertional chest pain. No shortness of breath. Patient denies headache, dizziness, blurred vision, double vision. Patient denies any stomach discomfort. No nausea, vomiting. No hematochezia. No hematemesis. Denies any black stools or blood in his stools. Denies dysuria or hematuria. No muscle weakness or numbness. PHYSICAL EXAMINATION: This is a 68-year-old obese male in no apparent distress at the time of my examination. HEENT: Head is atraumatic, normocephalic. Pupils are equal, round. Sclerae an icteric. Conjunctivae are clear. Mucous membranes of the mouth are moist. Neck is supple. There is no jugular venous distention. No carotid bruit is heard. CHEST EXAMINATION: Lungs are clear to auscultation. No chest wall tenderness is noted on palpation or with deep breathing. HEART EXAMINATION: Heart regular rate and rhythm. S1, S2 heard. No murmurs, gallops or rub. ABDOMEN: Soft, nontender. Bowel sounds are heard. No organomegaly noted. EXTREMITIES: 2+ peripheral pulses with mild peripheral edema and no calf tenderness noted. NEUROLOGIC EXAMINATION: Patient is awake, alert and oriented x3. EKG: Sinus mechanism without ST or T-wave changes One 10 beat run of NSVT on telemetry Previous echocardiogram in February showed normal LV function without significant valvular abnormalities LABORATORY DATA: WBC 4.7, hemoglobin 9.6, hematocrit 31.0, platelet 248, sodium 141, potassium 4.1, BUN 16, creatinine 0.93, magnesium 1.5, AST 39, ALT 23, ALP 200, BNP 1130, troponins negative 3, cholesterol 60, LDL undetectable, d-dimer 0.88 FINAL ASSESSMENT AND PLAN: #1 chest discomfort, likely gastrointestinal #2 diastolic heart failure #3 EtOH abuse #4 nonsustained ventricular tachycardia, likely related to abnormal electrolytes #5 elevated d-dimer PLAN: We will continue to monitor electrolytes and maintain within normal limits. Recommended complete cessation from alcohol. Consider increasing beta kary. Primary care physician will follow-up regarding elevated d-dimer. Past Medical History Past Medical History: Atrial Fibrillation, Blood Disorder, Cancer, Osteoarthritis (OA), Pulmonary Embolus (PE) Additional Past Medical History / Comment(s): Afib/RVR, pulmonary embolism L lung, pancreatitis multiple times, ETOH abuse, recent diagnosed with R renal carcinoma with sx, BPH, past R lung pneumo with chest tube, diverticulitis, benign colon polyps, arthritis multiple joints, abdominal hernias. Dizziness fall and right rib fractures 09/15/19, History of Any Multi-Drug Resistant Organisms: None Reported Past Surgical History: Bariatric Surgery, Bowel Resection, Cholecystectomy, Hernia Repair, Joint Replacement Additional Past Surgical History / Comment(s): Recent (2017) r kidney lesion cryoablation at [facility], 2012 bowel resection d/t viscus perf with colostomy later reversed , gastric sleeve converted to darrell-en-Y 08/2014-post op wound infection, paraesphogeal hiat hernia repair, R inguinal and umbilical hernia repairs, colonoscopies, L total knee arthroplasty., Past Anesthesia/Blood Transfusion Reactions: No Reported Reaction Past Psychological History: No Psychological Hx Reported Smoking Status: Former smoker Past Alcohol Use History: None Reported Past Drug Use History: None Reported - Past Family History Father Family Medical History: COPD, Myocardial Infarction ([place]) Additional Family Medical History / Comment(s): Father from a [place] at the age of 69yrs. Mother Family Medical History: Cancer Additional Family Medical History / Comment(s): Mother from ovarian cancer at the age of 69yrs. Sister(s) Family Medical History: Cancer Additional Family Medical History / Comment(s): at age 74yrs. Had breast cancer and a defibrillator Medications and Allergies Home Medications Medication Instructions Recorded Confirmed Type Allopurinol [Zyloprim] 300 mg PO DAILY 02/22/14 04/23/19 History Cholecalciferol [Vitamin D3 (25 5,000 unit PO DAILY 07/26/14 04/23/19 History Mcg = 1000 Iu)] Metoprolol Tartrate [Lopressor] 25 mg PO BID 06/28/17 04/23/19 History Multivitamin [Men's Multi-Vitamin] 1 tab PO DAILY #30 07/01/17 04/23/19 Rx Apixaban [Eliquis] 5 mg PO BID #0 06/28/18 04/23/19 Rx Pantoprazole Sodium [Protonix] 40 mg PO BID #60 tablet.dr 06/28/18 04/23/19 Rx Potassium Chloride [K-Tab ER] 10 meq PO DAILY #14 tablet.er 11/29/18 04/23/19 Rx Furosemide [Lasix] 40 mg PO DAILY #30 tab 03/11/19 04/23/19 Rx HYDROcodone/APAP 7.5-325MG [[place] 1 tab PO TID PRN #10 tab 03/16/19 04/23/19 Rx 7.5-325] Allergies Allergy/AdvReac Type Severity Reaction Status Date / Time No Known Allergies Allergy Verified 04/23/19 12:53 Physical Exam Vitals: Vital Signs Temp Pulse Pulse Resp BP BP Pulse Ox 04/24/19 12:15 98 F 66 16 103/64 100 04/24/19 07:30 98.2 F 65 16 107/61 98 04/24/19 04:00 98.4 F 60 18 108/60 100 04/24/19 00:00 66 18 107/62 99 04/23/19 20:00 97.2 F L 65 18 108/66 99 04/23/19 16:00 18 04/23/19 15:40 98.6 F 78 18 129/69 98 04/23/19 14:30 101/54 98 04/23/19 14:00 68 111/66 99 04/23/19 13:30 72 109/67 99 Intake and Output 04/23/19 04/24/19 04/24/19 22:59 06:59 14:59 Intake Total 360 520 Balance 360 520 Intake: IV 160 .9 160 Oral 360 360 Other: Voiding Method Toilet Toilet # Voids 1 Weight 105.7 kg Results 04/23/19 12:37 08/03/19 12:37 Cardiac Enzymes 04/23/19 04/23/19 04/24/19 Range/Units 12:37 18:12 00:44 Troponin I <0.012 <0.012 <0.012 (0.000-0.034) ng/mL Lipids 04/23/19 Range/Units 12:37 Triglycerides 93 (<150) mg/dL Cholesterol 60 (<200) mg/dL HDL Cholesterol 42 (40-60) mg/dL Current Medications Generic Name Dose Route Start Last Admin Trade Name Freq PRN Reason Stop Dose Admin Hydrocodone Bitart/Acetaminophen 1 each 04/23/19 14:22 04/24/19 07:47 [place] 7.5-325 PO 1 each TID PRN Administration Pain Allopurinol 300 mg 04/24/19 09:00 04/24/19 08:17 Zyloprim PO 300 mg DAILY JESSY Administration Apixaban 5 mg 04/23/19 21:00 04/24/19 08:17 Eliquis PO 5 mg BID JESSY Administration Aspirin 325 mg 04/24/19 09:00 04/24/19 08:17 Aspirin PO 325 mg DAILY JESSY Administration Furosemide 40 mg 04/24/19 09:00 04/24/19 08:18 Lasix IV 40 mg DAILY JESSY Administration Magnesium Sulfate/Dextrose 1 100 mls @ 100 mls/hr 04/24/19 12:30 04/24/19 13:01 gm/ IV Solution IVPB 04/24/19 14:29 100 mls/hr Q1H JESSY Administration Metoprolol Tartrate 25 mg 04/23/19 21:00 04/24/19 08:17 Lopressor PO 25 mg BID JESSY Administration Nitroglycerin 0.4 mg 04/23/19 14:01 04/23/19 15:56 Nitrostat SUBLINGUAL 0.4 mg Q5M PRN Administration Chest Pain Pantoprazole Sodium 40 mg 04/23/19 21:00 04/24/19 08:17 Protonix PO 40 mg BID JESSY Administration Sodium Chloride 10 ml 04/23/19 21:00 04/24/19 08:18 Saline Flush IV 10 ml BID JESSY Administration Intake and Output 04/23/19 04/24/19 04/24/19 22:59 06:59 14:59 Intake Total 360 520 Balance 360 520 Intake: IV 160 .9 160 Oral 360 360 Other: Voiding Method Toilet Toilet # Voids 1 Weight 105.7 kg 04/23/19 12:37 04/23/19 12:37
== END 2019-04-24 15:45 | disposition home or self-care (01) ==
LOC: EC 12:08 → 3SCARD 14:01
PROVIDERS: ADMIT Internal Medicine; ATTEND Internal Medicine
DX: R07.89 Other chest pain (principal); R79.89 Other specified abnormal findings of blood chemistry; E83.42 Hypomagnesemia; I48.0 Paroxysmal atrial fibrillation; I50.30 Unspecified diastolic (congestive) heart failure; M19.90 Unspecified osteoarthritis, unspecified site; I47.2 Ventricular tachycardia; N40.0 Benign prostatic hyperplasia without lower urinary tract symptoms; K21.9 Gastro-esophageal reflux disease without esophagitis; F10.20 Alcohol dependence, uncomplicated; I87.2 Venous insufficiency (chronic) (peripheral); L98.9 Disorder of the skin and subcutaneous tissue, unspecified; E66.9 Obesity, unspecified; Z68.32 Body mass index [BMI] 32.0-32.9, adult; Z79.01 Long term (current) use of anticoagulants; Z79.899 Other long term (current) drug therapy; Z90.49 Acquired absence of other specified parts of digestive tract; Z98.84 Bariatric surgery status; Z86.711 Personal history of pulmonary embolism; Z85.528 Personal history of other malignant neoplasm of kidney; Z86.010 Personal history of colon polyps; Z87.11 Personal history of peptic ulcer disease; Z87.891 Personal history of nicotine dependence; Z82.5 Family history of asthma and other chronic lower respiratory diseases; Z82.49 Family history of ischemic heart disease and other diseases of the circulatory system; Z80.41 Family history of malignant neoplasm of ovary; Z80.3 Family history of malignant neoplasm of breast
CPT/HCPCS: 96365; 96366 ×2; 96375; 99285; 36415; 93005; 85379; 83880; 80061; 80053; 82550; 83690; 83735 ×2; 84484 ×2; 85025; 85610; 85730; 71046; 71275; G0378 ×2; J1940; J3475 ×2; Q9967

== ENCOUNTER 2019-05-29 12:35 | Inpatient (IN) | payer MEDICARE ==
--- NOTE | 2019-05-29 13:07 | ED ---
General Adult HPI - General Chief complaint: Dizziness Stated complaint: Dizzy/sob Time Seen by Provider: 05/29/19 12:45 Source: patient, RN notes reviewed Mode of arrival: ambulatory Limitations: no limitations - History of Present Illness Initial comments: This is a 69-year-old male who presents emergency department stating that he has had multiple episodes of low blood pressure when he gets that he gets a little dizzy today he was feeling little dizzy and then somewhat short of breath. Patient states exertion always makes her short of breath but today he was more so short of breath than normal. Patient states she also noticed a little bit more edema to his legs are normal. Patient denies any chest pain palpitations or diaphoretic episodes. Patient states he has had a little cough today but no sputum production. Patient denies any fever chills. Patient denies any headache patient denies any numbness or weakness. Patient denies any recent injury or trauma. Patient denies any abdominal pain patient denies nausea vomiting diarrhea. Patient states he hydrates sufficiently every day. - Related Data Home Medications Medication Instructions Recorded Confirmed Allopurinol [Zyloprim] 300 mg PO DAILY 02/22/14 05/29/19 Cholecalciferol [Vitamin D3 (25 5,000 unit PO DAILY 07/26/14 05/29/19 Mcg = 1000 Iu)] Metoprolol Tartrate [Lopressor] 25 mg PO BID 06/28/17 05/29/19 Furosemide [Lasix] 40 mg PO BID 05/29/19 05/29/19 Previous Rx's Medication Instructions Recorded Multivitamin [Men's Multi-Vitamin] 1 tab PO DAILY #30 07/01/17 Apixaban [Eliquis] 5 mg PO BID #0 06/28/18 Pantoprazole Sodium [Protonix] 40 mg PO BID #60 tablet.dr 06/28/18 Potassium Chloride [K-Tab ER] 10 meq PO DAILY #14 tablet.er 11/29/18 Allergies Allergy/AdvReac Type Severity Reaction Status Date / Time No Known Allergies Allergy Verified 05/29/19 13:24 Review of Systems ROS Statement: Those systems with pertinent positive or pertinent negative responses have been documented in the HPI. ROS Other: All systems not noted in ROS Statement are negative. Past Medical History Past Medical History: Atrial Fibrillation, Blood Disorder, Cancer, Osteoarthritis (OA), Pulmonary Embolus (PE) Additional Past Medical History / Comment(s): Afib/RVR, pulmonary embolism L lung, pancreatitis multiple times, ETOH abuse, recent diagnosed with R renal carcinoma with sx, BPH, past R lung pneumo with chest tube, diverticulitis, benign colon polyps, arthritis multiple joints, abdominal hernias. Dizziness fall and right rib fractures 09/15/19, History of Any Multi-Drug Resistant Organisms: None Reported Past Surgical History: Bariatric Surgery, Bowel Resection, Cholecystectomy, Hernia Repair, Joint Replacement Additional Past Surgical History / Comment(s): Recent (2017) r kidney lesion cryoablation at [facility], 2012 bowel resection d/t viscus perf with colostomy later reversed , gastric sleeve converted to darrell-en-Y 08/2014-post op wound infection, paraesphogeal hiat hernia repair, R inguinal and umbilical hernia repairs, colonoscopies, L total knee arthroplasty., Past Anesthesia/Blood Transfusion Reactions: No Reported Reaction Past Psychological History: No Psychological Hx Reported Smoking Status: Former smoker Past Alcohol Use History: None Reported Past Drug Use History: None Reported - Past Family History Father Family Medical History: COPD, Myocardial Infarction ([place]) Additional Family Medical History / Comment(s): Father from a [place] at the age of 69yrs. Mother Family Medical History: Cancer Additional Family Medical History / Comment(s): Mother from ovarian cancer at the age of 69yrs. Sister(s) Family Medical History: Cancer Additional Family Medical History / Comment(s): at age 74yrs. Had breast cancer and a defibrillator General Exam - General Exam Comments Initial Comments: GENERAL: Patient is well-developed and well-nourished. Patient is nontoxic and well- hydrated and is in mild distress. ENT: Neck is soft and supple. No significant lymphadenopathy is noted. Oropharynx is clear. Moist mucous membranes. Neck has full range of motion without eliciting any pain. EYES: The sclera were anicteric and conjunctiva were pink and moist. Extraocular movements were intact and pupils were equal round and reactive to light. Eyelids were unremarkable. PULMONARY: Unlabored respirations. Good breath sounds bilaterally. No audible rales rhonchi or wheezing was noted. CARDIOVASCULAR: There is a regular rate and rhythm without any murmurs gallops or rubs. ABDOMEN: Soft and nontender with normal bowel sounds. No palpable organomegaly was noted. There is no palpable pulsatile mass. SKIN: Skin is clear with no lesions or rashes and otherwise unremarkable. NEUROLOGIC: Patient is alert and oriented x3. Cranial nerves II through XII are grossly intact. Motor and sensory are also intact. Normal speech, volume and content. Symmetrical smile. MUSCULOSKELETAL: Normal extremities with adequate strength and full range of motion. 1+ bilateral edema. LYMPHATICS: No significant lymphadenopathy is noted PSYCHIATRIC: Normal psychiatric evaluation. Limitations: no limitations Course Vital Signs 05/29/19 05/29/19 05/29/19 12:46 13:17 13:45 Temperature 97.8 F Pulse Rate 69 71 68 Respiratory 20 18 16 Rate Blood Pressure 96/59 88/64 102/63 O2 Sat by Pulse 96 99 Oximetry 05/29/19 05/29/19 13:46 14:00 Temperature Pulse Rate 60 65 Respiratory 20 16 Rate Blood Pressure 118/75 118/75 O2 Sat by Pulse 99 99 Oximetry Medical Decision Making - Medical Decision Making EKG shows sinus rhythm with occasional PAC seen at 62 bpm TX interval is 156 QRS is 80 QT interval 412 QTC is 418. Patient's EKG shows no ST segment elevation or depression. Chest x-ray shows no acute abnormality. Patient was ambulated in the emergency department he still felt dizzy and mildly short of breath and he did not feel comfortable going home. I spoke with Dr. Rivera he agreed to admit the patient admitted the patient wrote admitting orders. - Lab Data Result diagrams: 05/29/19 13:21 05/29/19 13:21 Lab Results 05/29/19 05/29/19 05/29/19 Range/Units 13:21 13:21 13:21 WBC 5.8 (3.8-10.6) k/uL RBC 3.25 L (4.30-5.90) m/uL Hgb 10.5 L (13.0-17.5) gm/dL Hct 33.1 L (39.0-53.0) % MCV 101.7 H (80.0-100.0) fL MCH 32.3 (25.0-35.0) pg MCHC 31.7 (31.0-37.0) g/dL RDW 20.0 H (11.5-15.5) % Plt Count 236 (150-450) k/uL Neutrophils % 74 % Lymphocytes % 18 % Monocytes % 5 % Eosinophils % 2 % Basophils % 1 % Neutrophils # 4.3 (1.3-7.7) k/uL Lymphocytes # 1.0 (1.0-4.8) k/uL Monocytes # 0.3 (0-1.0) k/uL Eosinophils # 0.1 (0-0.7) k/uL Basophils # 0.0 (0-0.2) k/uL Anisocytosis Slight Macrocytosis Moderate PT (9.0-12.0) sec INR (<1.2) APTT (22.0-30.0) sec Sodium 136 L (137-145) mmol/L Potassium 3.5 (3.5-5.1) mmol/L Chloride 106 (98-107) mmol/L Carbon Dioxide 20 L (22-30) mmol/L Anion Gap 10 mmol/L BUN 30 H (9-20) mg/dL Creatinine 1.80 H (0.66-1.25) mg/dL Est GFR (CKD-EPI)AfAm 44 (>60 ml/min/1.73 sqM) Est GFR (CKD-EPI)NonAf 38 (>60 ml/min/1.73 sqM) Glucose 86 (74-99) mg/dL Calcium 7.8 L (8.4-10.2) mg/dL Magnesium 1.3 L (1.6-2.3) mg/dL Total Bilirubin 1.4 H (0.2-1.3) mg/dL AST 93 H (17-59) U/L ALT 58 (21-72) U/L Alkaline Phosphatase 450 H (38-126) U/L Troponin I (0.000-0.034) ng/mL NT-Pro-B Natriuret Pep 1400 pg/mL Total Protein 4.8 L (6.3-8.2) g/dL Albumin 2.1 L (3.5-5.0) g/dL Urine Color Urine Appearance (Clear) Urine pH (5.0-8.0) Ur Specific [place] (1.001-1.035) Urine Protein (Negative) Urine Glucose (UA) (Negative) Urine Ketones (Negative) Urine Blood (Negative) Urine Nitrite (Negative) Urine Bilirubin (Negative) Urine Urobilinogen (<2.0) mg/dL Ur Leukocyte Esterase (Negative) 05/29/19 05/29/19 05/29/19 Range/Units 13:21 13:21 14:10 WBC (3.8-10.6) k/uL RBC (4.30-5.90) m/uL Hgb (13.0-17.5) gm/dL Hct (39.0-53.0) % MCV (80.0-100.0) fL MCH (25.0-35.0) pg MCHC (31.0-37.0) g/dL RDW (11.5-15.5) % Plt Count (150-450) k/uL Neutrophils % % Lymphocytes % % Monocytes % % Eosinophils % % Basophils % % Neutrophils # (1.3-7.7) k/uL Lymphocytes # (1.0-4.8) k/uL Monocytes # (0-1.0) k/uL Eosinophils # (0-0.7) k/uL Basophils # (0-0.2) k/uL Anisocytosis Macrocytosis PT 14.1 H (9.0-12.0) sec INR 1.4 H (<1.2) APTT 29.8 (22.0-30.0) sec Sodium (137-145) mmol/L Potassium (3.5-5.1) mmol/L Chloride (98-107) mmol/L Carbon Dioxide (22-30) mmol/L Anion Gap mmol/L BUN (9-20) mg/dL Creatinine (0.66-1.25) mg/dL Est GFR (CKD-EPI)AfAm (>60 ml/min/1.73 sqM) Est GFR (CKD-EPI)NonAf (>60 ml/min/1.73 sqM) Glucose (74-99) mg/dL Calcium (8.4-10.2) mg/dL Magnesium (1.6-2.3) mg/dL Total Bilirubin (0.2-1.3) mg/dL AST (17-59) U/L ALT (21-72) U/L Alkaline Phosphatase (38-126) U/L Troponin I <0.012 (0.000-0.034) ng/mL NT-Pro-B Natriuret Pep pg/mL Total Protein (6.3-8.2) g/dL Albumin (3.5-5.0) g/dL Urine Color Light Yellow Urine Appearance Clear (Clear) Urine pH 5.0 (5.0-8.0) Ur Specific [place] 1.006 (1.001-1.035) Urine Protein Negative (Negative) Urine Glucose (UA) Negative (Negative) Urine Ketones Negative (Negative) Urine Blood Negative (Negative) Urine Nitrite Negative (Negative) Urine Bilirubin Negative (Negative) Urine Urobilinogen <2.0 (<2.0) mg/dL Ur Leukocyte Esterase Negative (Negative) Disposition Clinical Impression: Renal insufficiency, Hypomagnesemia, Lightheaded, Dyspnea, Hypotension Disposition: ADMITTED IP TO THIS HOSP Referrals: Rebekah Hood DO [Primary Care Provider] - 1-2 days Time of Disposition: 15:51
[2019-05-29 13:33] LABS: Anisocytosis Slight; Basophils % (A) 1 %; Eosinophils # (A) 0.1 k/uL (0-0.7); Eosinophils % (A) 2 %; HCT 33.1 % (39.0-53.0); HGB 10.5 gm/dL (13.0-17.5); Lymphocytes % (A) 18 %; MCH 32.3 pg (25.0-35.0); MCHC 31.7 g/dL (31.0-37.0); MCV 101.7 fL (80.0-100.0); Macrocytosis Moderate; Mean Platelet Volume 8.2; Monocytes # (A) 0.3 k/uL (0-1.0); Monocytes % (A) 5 %; Neutrophils # (A) 4.3 k/uL (1.3-7.7); Neutrophils % (A) 74 %; Platelet Count 236 k/uL (150-450); RBC 3.25 m/uL (4.30-5.90); WBC 5.8 k/uL (3.8-10.6)
[2019-05-29 13:41] LABS: Albumin 2.1 g/dL (3.5-5.0); Calcium 7.8 mg/dL (8.4-10.2); Magnesium 1.3 mg/dL (1.6-2.3); Potassium 3.5 mmol/L (3.5-5.1); Total Bilirubin 1.4 mg/dL (0.2-1.3); Total Protein 4.8 g/dL (6.3-8.2)
--- NOTE | 2019-05-29 13:43 | XR ---
EXAMINATION TYPE: XR chest 2V DATE OF EXAM: 05/29/2019 COMPARISON: 04/23/2019 HISTORY: Difficulty breathing TECHNIQUE: Frontal and lateral views of the chest are obtained. FINDINGS: Stable bandlike scarring or chronic atelectasis is seen of the right lower lung. [place] d fracture deformities of the right posterior mid to lower ribs. Cardiomediastinal silhouette remains enlarged. Degenerative changes of the spine and shoulders. No new focal consolidation, pleural effus ion or pneumothorax. IMPRESSION: Stable right basilar scarring and/or chronic atelectasis. No new focal consolidation. Ch ronic changes with no acute cardiac pulmonary process.
[2019-05-29 13:54] LABS: INR 1.4 (<1.2); Partial Thromboplastin Time 29.8 sec (22.0-30.0); Prothrombin Time 14.1 sec (9.0-12.0)
[2019-05-29] MEDS ORDERED: MAGNESIUM SULFATE-D5W PMX 1 GM in DEXTROSE/WATER 1 100ML.BAG IVPB ONE (14:03)
[2019-05-29 14:33] LABS: Appearance,Urine Clear (Clear); Bilirubin,Urine Negative (Negative); Blood,Urine Negative (Negative); Color,Urine Light Yellow; Glucose,Urine (UA) Negative (Negative); Ketones,Urine Negative (Negative); Leukocyte Esterase,Urine Negative (Negative); Nitrite,Urine Negative (Negative); Protein,Urine Negative (Negative); Specific Gravity,Urine 1.006 (1.001-1.035); Urobilinogen,Urine <2.0 mg/dL (<2.0)
[2019-05-29] MEDS ORDERED: SODIUM CHLORIDE 0.9% 1,000 ML IV ONE (15:52)
[2019-05-29] MEDS ORDERED: ALPRAZolam 0.25 MG TAB PO PRN (20:39)
[2019-05-29] MEDS: METOPROLOL TARTRATE 12.5 MG TAB PO SCH (21:43)
[2019-05-29] MEDS: PANTOPRAZOLE 40 MG TABLET PO SCH (21:45)
[2019-05-29] MEDS: APIXABAN 5 MG TAB PO SCH (21:45)
[2019-05-29] MEDS: SODIUM CHLORIDE 0.9% 1,000 ML IV SCH (21:46)
[2019-05-29] MEDS: HYDROcodone/APAP 7.5-325MG 1 EACH TAB PO PRN (21:47)
[2019-05-29] MEDS: TEMAZEPAM 15 MG CAP PO PRN (23:46)
--- NOTE | 2019-05-30 01:09 | HP ---
HISTORY AND PHYSICAL DATE OF SERVICE: 05/29/2019 CHIEF COMPLAINT: Dizziness and shortness of breath. HISTORY OF PRESENT ILLNESS: This 69-year-old gentleman with a past medical history of multiple medical problems including history of atrial fibrillation, history of DJD, history of pulmonary embolus, history of bariatric surgery, history of bowel resection, being followed by Dr. Hood in the outpatient is complaining of dizziness and weakness. The patient had multiple episodes of low blood pressure and the patient also had shortness of breath. The patient also noted some increased edema and diaphoresis also. The patient came to [facility] and admitted for further evaluation and treatment. A 2D echo done in February this year showed ejection fraction 55-60 percent and x-ray done in the ER which was personally reviewed by me showed evidence of some atelectasis and scarring also. The BNP was 1400. The patient admitted for evaluation and treatment. Patient was found to be hypomagnesemic and creatinine is also elevated 1.80 and the baseline creatinine is 1.2 indicating acute renal failure. There is no history of fever or rigors. No headache, loss of consciousness or seizures. PAST MEDICAL HISTORY: History of atrial fibrillation, history of DJD, history of pulmonary embolism, history EtOH abuse, history of right renal carcinoma, bariatric surgery. MEDICATIONS PRIOR TO ADMISSION: 1. [place] 7.5 q.6h p.r.n. 2. K-Tab 10 mg. 3. Protonix 40 mg daily. 4. Multivitamins 1 p.o. daily. 5. Lopressor 25 mg b.i.d. 6. Lasix 40 mg b.i.d. 7. Vitamin D3 5000 daily. 8. Eliquis 5 mg p.o. b.i.d. 9. Zyloprim 300 mg daily. ALLERGIES: None. FAMILY HISTORY: History of ovarian cancer. SOCIAL HISTORY: Previous history of smoking and previous history of alcohol intake. REVIEW OF SYSTEMS: ENT: No diminished vision. No diminished hearing. CARDIOVASCULAR system as mentioned earlier. RESPIRATORY: As mentioned earlier. GI: No nausea. : No dysuria. NERVOUS SYSTEM: No numbness or weakness. ALLERGY: No asthma. MUSCULOSKELETAL: As mentioned earlier. HEMATOLOGY/ONCOLOGY: No history of anemia. ENDOCRINE: No history of diabetes or hypothyroidism. CONSTITUTIONAL: As mentioned earlier. PSYCHIATRY: As mentioned earlier. PHYSICAL EXAM: Alert and oriented x3. Pulse 77, blood pressure 100/60, respirations 16, temperature 97.9, pulse ox 98% on room air. HEENT: Conjunctivae normal. Oral mucosa moist. NECK: No jugular venous distention. No lymph node enlargement. CARDIOVASCULAR: S1, S2. RESPIRATORY: Diminished breath sounds at the bases. A few scattered rhonchi and crackles. ABDOMEN: Soft, nontender. LEGS: Bilateral leg edema. NERVOUS SYSTEM: Higher functions mentioned earlier. Moves all four limbs. No focal deficits. LYMPHATICS: No lymph node in neck or axilla. SKIN: No rash. JOINTS: No active deforming arthropathy. LABS: WBC 5.2, hemoglobin 10.5. INR is 1.4. Sodium 136, creatinine is 1.80 and magnesium 1.3. ASSESSMENT: 1. Acute renal failure secondary to prerenal acute renal failure, acute tubular necrosis with dehydration, present on admission. 2. Relative hypotension because of prerenal factors and weakness and dizziness. 3. Anemia, macrocytic. 4. Hypomagnesemia. 5. Elevated alkaline phosphatase. 6. History atrial fibrillation. 7. History of degenerative joint disease. 8. History of pulmonary embolism. 9. History of atrial fibrillation with rapid ventricular rate. 10.History of pancreatitis multiple times. 11.History of EtOH abuse. 12.History of right renal carcinoma, had surgery. 13.History of right lung pneumonia with chest tube. 14.History of polyps. 15.History of bariatric surgery. 16.History of bowel resection. 17.History of cholecystectomy. 18.History of degenerative joint disease. 19.History of nicotine dependence. 20.Obesity with body mass of 33.5. RECOMMENDATIONS AND DISCUSSION: In this 69-year-old gentleman who presented with multiple complex medical issues, we will monitor the patient closely, continue the current management, continue symptomatic treatment. I will initiate cautious IV fluids. Otherwise, I would also recommend repeat labs. Monitor blood pressure closely. Otherwise, supplement magnesium. Guarded prognosis because of multiple complex medical issues. Further recommendations to follow. Repeat magnesium. Home medications will be resumed. We will cut down the dose of metoprolol with stop parameters also. MMODL / IJN: [id number] /
[2019-05-30] MEDS: PANTOPRAZOLE 40 MG TABLET PO SCH ×2 (07:10→16:50)
[2019-05-30 08:04] LABS: Anisocytosis Moderate; Basophils % (A) 1 %; Eosinophils # (A) 0.1 k/uL (0-0.7); Eosinophils % (A) 3 %; HCT 27.5 % (39.0-53.0); Lymphocytes # (A) 1.1 k/uL (1.0-4.8); Lymphocytes % (A) 29 %; MCH 32.6 pg (25.0-35.0); MCHC 32.2 g/dL (31.0-37.0); MCV 101.4 fL (80.0-100.0); Macrocytosis Moderate; Mean Platelet Volume 8.5; Monocytes # (A) 0.3 k/uL (0-1.0); Monocytes % (A) 7 %; Neutrophils # (A) 2.2 k/uL (1.3-7.7); Neutrophils % (A) 58 %; Platelet Count 178 k/uL (150-450); RBC 2.71 m/uL (4.30-5.90); RDW 20.5 % (11.5-15.5); WBC 3.8 k/uL (3.8-10.6)
[2019-05-30 08:08] LABS: HGB 8.9 gm/dL (13.0-17.5)
[2019-05-30 08:11] LABS: Calcium 7.3 mg/dL (8.4-10.2); Magnesium 1.5 mg/dL (1.6-2.3); Potassium 3.2 mmol/L (3.5-5.1)
[2019-05-30] MEDS: POTASSIUM CHLORIDE ER 10 MEQ TAB.ER.PRT PO SCH (08:27)
[2019-05-30] MEDS: ALLOPURINOL 300 MG TAB PO SCH (08:27)
[2019-05-30] MEDS: METOPROLOL TARTRATE 12.5 MG TAB PO SCH (08:27)
[2019-05-30] MEDS: CHOLECALCIFEROL 1,000 UNIT TAB PO SCH (08:27)
[2019-05-30] MEDS: MULTIVITAMINS, THERA 1 EACH TAB PO SCH (08:27)
[2019-05-30] MEDS: APIXABAN 5 MG TAB PO SCH ×2 (08:27→20:54)
[2019-05-30] MEDS: HYDROcodone/APAP 7.5-325MG 1 EACH TAB PO PRN ×2 (08:29→19:52)
[2019-05-30] MEDS ORDERED: Magnesium Replacement Protocol 1 EACH MISC MISCELLANE PRN ×2 (08:55→16:19)
[2019-05-30] MEDS: MAGNESIUM SULFATE-D5W PMX 1 GM in DEXTROSE/WATER 1 100ML.BAG IVPB SCH ×2 (10:15→11:16)
[2019-05-30] MEDS: FOLIC ACID 1 MG TAB PO SCH (11:16)
[2019-05-30] MEDS: THIAMINE 100 MG TAB PO SCH (11:16)
[2019-05-30] MEDS ORDERED: MULTIVITAMINS, THERA 1 EACH TAB PO SCH (12:00)
[2019-05-30] MEDS ORDERED: POTASSIUM CHLORIDE ER 20 MEQ TAB.ER PO STA (13:14)
--- NOTE | 2019-05-30 13:19 | P.CRDCN ---
History of Present Illness History of present illness: This is a pleasant 69-year-old male past medical history significant for chronic diastolic heart failure, paroxysmal atrial fibrillation on germination worker anti-coagulation, chronic alcohol use, right renal carcinoma and history of non- sustained VT in the setting of electrolyte abnormalities. He follows in the office with Dr. Mcadams. We have been asked to see him in consultation. He presented to the hospital yesterday with symptoms of dizziness, shortness of breath, increased weight gain and lower extremity edema. He is seen and examined sitting up on the edge of the bed. Blood pressure since admission have been consistently low below 100 systolic. He states he has noticed his weight increasing from baseline of 235 up to 247 over the previous week. He is short of breath with exertion but denies orhopnea or PND. He has had no chest discomfort, palpitations, nausea, vomiting or diaphoresis. EKG on admission reveals sinus mechanism heart rate of 60 to nonspecific flattened T waves. Chest x-ray reveals stable right basilar scarring and chronic atelectasis. No new focal consolidations noted. No acute cardiopulmonary process. Laboratory data reviewed, WBC 3.8, hemoglobin 8.9 down from 10.5 on admission, it was 178, INR 1.4, sodium 137, potassium 3.2, creatinine 1.6, magnesium 1.5 up from 1.3 on admission, proBNP 1400, albumin 2.1, alkaline phosphatase 450 and cardiac enzymes negative 1. Current cardiac medications include Lopressor 25 mg twice a day, Lasix 40 mg twice a day and Eliquis 5 mg twice a day. Most recent echocardiogram obtained February 2019 reveals preserved LV systolic function with ejection fraction 55-60%. At the time of my exam: CONSTITUTIONAL: Denies fever. Denies chills. EYES: Denies blurred vision. Denies vision changes. Denies eye pain. EARS, NOSE, MOUTH & THROAT: Denies headache. Denies sore throat. Denies ear pain. CARDIOVASCULAR: Denies chest pain. Denies shortness of breath. Denies orthopnea. Denies PND. Denies palpitations. RESPIRATORY: Denies cough. GASTROINTESTINAL: Denies abdominal pain. Denies diarrhea. Denies constipation. Denies nausea. Denies vomiting. MUSCULOSKELETAL: Denies myalgias. INTEGUMENTARY: Denies pruitis. Denies rash. NEUROLOGIC: Denies numbness. Denies tingling. Denies weakness. PSYCHIATRIC: Denies anxiety. Denies depression. ENDOCRINE: Denies fatigue. Denies weight change. Denies polydipsia. Denies poly urina. GENITOURINARY: Denies burning, hematuria or urgency with micturation. HEMATOLOGIC: Denies history of anemia. Denies bleeding. Blood pressure 91/58 heart rate 87 afebrile maintaining oxygen saturation on room air GENERAL: This is a 69-year-old male in no apparent distress at the ti me of my examination. HEENT: Head is atraumatic, normocephalic. Pupils are equal, round. Sclerae ani cteric. Conjunctivae are clear. Mucous membranes of the mouth are moist. Neck is supple. There is no jugular venous distention. No carotid bruit is heard. LUNGS: Clear to auscultation no wheezes, rales or rhonchi. No chest wall tenderness is noted on palpation or with deep breathing. HEART: Regular rate and rhythm without murmurs, rubs or gallops. S1 and S2 heard. ABDOMEN: Soft, nontender. Bowel sounds are heard. No organomegaly noted. EXTREMITIES: 1+ bilateral lower extremity pitting edema and no calf tenderness noted. VASCULAR: Radial and dorsalis pedis pulses palpated, no evidence of clubbing. NEUROLOGIC: Patient is awake, alert and oriented x3. ASSESSMENT Hypotension causing dizziness. Acute on chronic diastolic heart failure, mild Hypoalbuminemia Hypomagnesemia Hypokalemia Paroxysmal atrial fibrillation on retirement anticoagulation Chronic alcohol use Chronic anemia. PLAN Replace magnesium and potassium. Repeat levels in the morning. Obtain limited echo to assess LV function. Hold lopressor for systolic blood pressure less than 90. Check for orthostatic changes. Apply vehicle monitor technician. Shortness of breath and lower extremity edema is multi-factorial secondary to mi ld heart failure, hypoalbuminemia and anemia. We will continue to follow and make recommendations accordingly. Thank you kindly for this consultation. Nurse Practitioner note has been reviewed, I agree with a documented findings and plan of care. Patient was seen and examined. Past Medical History Past Medical History: Atrial Fibrillation, Blood Disorder, Cancer, Osteoarthritis (OA), Pulmonary Embolus (PE) Additional Past Medical History / Comment(s): Afib/RVR, pulmonary embolism L lung, pancreatitis multiple times, ETOH abuse, recent diagnosed with R renal carcinoma with sx, BPH, past R lung pneumo with chest tube, diverticulitis, benign colon polyps, arthritis multiple joints, abdominal hernias. Dizziness fall and right rib fractures 09/15/19, History of Any Multi-Drug Resistant Organisms: None Reported Past Surgical History: Bariatric Surgery, Bowel Resection, Cholecystectomy, Hernia Repair, Joint Replacement Additional Past Surgical History / Comment(s): Recent (2017) r kidney lesion cryoablation at [facility], 2013 bowel resection d/t viscus perf with colostomy later reversed , gastric sleeve converted to darrell-en-Y 08/2014-post op wound infection, paraesphogeal hiat hernia repair, R inguinal and umbilical hernia repairs, colonoscopies, L total knee arthroplasty., Past Anesthesia/Blood Transfusion Reactions: No Reported Reaction Past Psychological History: No Psychological Hx Reported Additional Psychological History / Comment(s): Pt resides alone. He is independent. He is retired from [employer]. Smoking Status: Former smoker Past Alcohol Use History: None Reported Additional Past Alcohol Use History / Comment(s): SMOKING: FOR 15 YRS, STOPPED, 1987. ETOH: HISTORY OF ABUSE, 6 to 8 mixed drinks per week Past Drug Use History: None Reported - Past Family History Father Family Medical History: COPD, Myocardial Infarction (UT) Additional Family Medical History / Comment(s): Father from a UT at the age of 69yrs. Mother Family Medical History: Cancer Additional Family Medical History / Comment(s): Mother from ovarian cancer at the age of 69yrs. Sister(s) Family Medical History: Cancer Additional Family Medical History / Comment(s): at age 74yrs. Had breast cancer and a defibrillator Medications and Allergies Home Medications Medication Instructions Recorded Confirmed Type Allopurinol [Zyloprim] 300 mg PO DAILY 02/22/14 05/29/19 History Cholecalciferol [Vitamin D3 (25 5,000 unit PO DAILY 07/26/14 05/29/19 History Mcg = 1000 Iu)] Metoprolol Tartrate [Lopressor] 25 mg PO BID 06/28/17 05/29/19 History Multivitamin [Men's Multi-Vitamin] 1 tab PO DAILY #30 07/01/17 05/29/19 Rx Apixaban [Eliquis] 5 mg PO BID #0 06/28/18 05/29/19 Rx Pantoprazole Sodium [Protonix] 40 mg PO BID #60 tablet.dr 06/28/18 05/29/19 Rx Potassium Chloride [K-Tab ER] 10 meq PO DAILY #14 tablet.er 11/29/18 05/29/19 Rx Furosemide [Lasix] 40 mg PO BID 05/29/19 05/29/19 History Hydrocodone/Acetaminophen [[place] 1 tab PO Q8HR PRN 05/29/19 05/29/19 History 7.5-325] Allergies Allergy/AdvReac Type Severity Reaction Status Date / Time No Known Allergies Allergy Verified 05/29/19 13:24 Physical Exam Vitals: Vital Signs Temp Pulse Pulse Resp BP BP Pulse Ox 05/30/19 11:24 97.8 F 87 16 91/58 96 05/30/19 09:10 63 05/30/19 05:40 92/50 05/30/19 05:00 97.8 F 63 16 70/41 93 L 05/30/19 01:15 84 16 05/29/19 21:41 105/69 05/29/19 20:38 98.6 F 80 16 94/57 98 05/29/19 20:05 98.3 F 80 18 97/59 98 05/29/19 17:14 97.9 F 77 16 100/60 99 05/29/19 16:20 98.0 F 65 19 106/63 98 05/29/19 15:40 74 15 100/69 98 05/29/19 15:20 65 16 115/68 99 05/29/19 15:00 68 17 107/68 97 05/29/19 14:40 67 16 96/61 100 05/29/19 14:20 63 15 107/64 98 05/29/19 14:00 65 16 118/75 99 05/29/19 13:46 60 20 118/75 99 05/29/19 13:45 68 16 102/63 05/29/19 13:17 71 18 88/64 99 Intake and Output 05/29/19 05/30/19 05/30/19 22:59 06:59 14:59 Intake Total 275 400 Balance 275 400 Intake: Intake, IV Titration 275 400 Amount Sodium Chloride 0.9% 1, 50 400 000 ml @ 50 mls/hr IV . Q20H [facility] Rx#:[id number] Sodium Chloride 0.9% 1, 225 000 ml @ 75 mls/hr IV . [id number] [facility] Rx#:[id number] Other: Voiding Method Toilet Toilet # Voids 1 1 Results 05/30/19 07:05 05/30/19 07:05 Cardiac Enzymes 05/29/19 05/29/19 Range/Units 13:21 13:21 AST 93 H (17-59) U/L Troponin I <0.012 (0.000-0.034) ng/mL Coagulation 05/29/19 Range/Units 13:21 PT 14.1 H (9.0-12.0) sec APTT 29.8 (22.0-30.0) sec CBC 05/29/19 05/30/19 Range/Units 13:21 07:05 WBC 5.8 3.8 (3.8-10.6) k/uL RBC 3.25 L 2.71 L (4.30-5.90) m/uL Hgb 10.5 L 8.9 L D (13.0-17.5) gm/dL Hct 33.1 L 27.5 L (39.0-53.0) % Plt Count 236 178 (150-450) k/uL Comprehensive Metabolic Panel 05/29/19 05/30/19 Range/Units 13:21 07:05 Sodium 136 L 137 (137-145) mmol/L Potassium 3.5 3.2 L (3.5-5.1) mmol/L Chloride 106 108 H (98-107) mmol/L Carbon Dioxide 20 L 24 (22-30) mmol/L BUN 30 H 28 H (9-20) mg/dL Creatinine 1.80 H 1.60 H (0.66-1.25) mg/dL Glucose 86 73 L (74-99) mg/dL Calcium 7.8 L 7.3 L (8.4-10.2) mg/dL AST 93 H (17-59) U/L ALT 58 (21-72) U/L Alkaline Phosphatase 450 H (38-126) U/L Total Protein 4.8 L (6.3-8.2) g/dL Albumin 2.1 L (3.5-5.0) g/dL Current Medications Generic Name Dose Route Start Last Admin Trade Name Freq PRN Reason Stop Dose Admin Hydrocodone Bitart/Acetaminophen 1 each 05/29/19 20:37 05/30/19 08:29 [place] 7.5-325 PO 1 each Q8HR PRN Administration Pain Allopurinol 300 mg 05/30/19 09:00 05/30/19 08:27 Zyloprim PO 300 mg DAILY JESSY Administration Alprazolam 0.25 mg 05/29/19 20:39 Xanax PO TID PRN Anxiety Apixaban 5 mg 05/29/19 21:00 05/30/19 08:27 Eliquis PO 5 mg BID JESSY Administration Cholecalciferol 5,000 unit 05/30/19 09:00 05/30/19 08:27 Vitamin D3 (25 Mcg = 1000 Iu) PO 5,000 unit DAILY JESSY Administration Folic Acid 1 mg 05/30/19 12:00 05/30/19 11:16 Folic Acid PO 1 mg DAILY@1200 JESSY Administration Sodium Chloride 1,000 mls @ 50 mls/hr 05/29/19 20:45 05/29/19 21:46 Saline 0.9% IV 50 mls/hr .Q20H JESSY Administration Miscellaneous Information 1 each 05/30/19 08:55 Magnesium Per Protocol MISCELLANE DAILY PRN Per Protocol Protocol Multivitamins 1 each 05/30/19 09:00 05/30/19 08:27 Theragran PO 1 each DAILY JESSY Administration Pantoprazole Sodium 40 mg 05/29/19 21:00 05/30/19 07:10 Protonix PO 40 mg AC-BID JESSY Administration Potassium Chloride 10 meq 05/30/19 09:00 05/30/19 08:27 K-Dur 10 PO 10 meq DAILY JESSY Administration Temazepam 15 mg 05/29/19 20:39 05/29/19 23:46 Restoril PO 15 mg HS PRN Administration Insomnia Thiamine HCl 100 mg 05/30/19 12:00 05/30/19 11:16 Vitamin B-1 PO 100 mg DAILY@1200 JESSY Administration Intake and Output 05/29/19 05/30/19 05/30/19 22:59 06:59 14:59 Intake Total 275 400 Balance 275 400 Intake: Intake, IV Titration 275 400 Amount Sodium Chloride 0.9% 1, 50 400 000 ml @ 50 mls/hr IV . Q20H [facility] Rx#:[id number] Sodium Chloride 0.9% 1, 225 000 ml @ 75 mls/hr IV . [id number] [facility] Rx#:[id number] Other: Voiding Method Toilet Toilet # Voids 1 1 05/30/19 07:05 05/30/19 07:05
[2019-05-30] MEDS ORDERED: Potassium Replacement Protocol 1 EACH MISC MISCELLANE PRN (16:19)
[2019-05-30] MEDS: SODIUM CHLORIDE 0.9% 1,000 ML IV SCH (16:50)
--- NOTE | 2019-05-30 18:01 | PN ---
PROGRESS NOTE DATE OF SERVICE: 05/30/2019. This 69-year-old gentleman who was admitted with acute renal failure secondary to prerenal acute renal failure, acute tubular necrosis, is being closely monitored. The patient is feeling slightly better. The creatinine is still elevated up to 1.6. Magnesium has improved to 1.5. Hemoglobin is 8.9. The patient was also seen by Cardiology at this time; Cardiology recommended continuing the current medications, holding off Lopressor and replacement protocols. Past medical history reviewed. REVIEW OF SYSTEMS: CARDIOVASCULAR SYSTEM: As mentioned earlier. RESPIRATORY SYSTEM: As mentioned earlier. GI: As mentioned earlier. : As mentioned earlier. NERVOUS SYSTEM: No numbness, weakness. CURRENT MEDICATIONS: Reviewed. They include: 1. [place] 7.5 q.8 p.r.n. 2. Zyloprim 300 mg p.o. daily. 3. Xanax 0.25 t.i.d. 4. Eliquis 5 mg p.o. b.i.d. 5. Vitamin D3 5000 daily. 6. Folic acid 1 mg p.o. daily. 7. Lopressor 25 mg p.o. b.i.d. 8. Magnesium replacement protocol. 9. Multivitamins. 10.Protonix 40 mg b.i.d. 11.K-Dur 10 mEq p.o. daily. 12.Restoril 15 mg at bedtime p.r.n. 13.Vitamin B1, 100 mg p.o. daily. PHYSICAL EXAMINATION: Patient is alert, oriented x3. Pulse is 87, blood pressure 91/58, respiration 16, temperature 97.8, pulse ox 96% on room air, HEENT: Conjunctivae normal. NECK: No jugular venous distention. CARDIOVASCULAR SYSTEM: S1, S2 muffled. RESPIRATORY SYSTEM: Breath sounds diminished at the bases. A few scattered rhonchi and crackles. ABDOMEN: Soft, non-tender. LEGS: Bilateral leg edema. NERVOUS SYSTEM: Diffusely weak. LABS: WBC 3.8, hemoglobin 8.9. Otherwise, sodium 137, potassium 3.2. UA unremarkable. Magnesium is 1.5. ASSESSMENT: 1. Acute renal failure, possibly secondary to prerenal renal failure with acute tubular necrosis and dehydration, present on admission. 2. Relative hypotension because of prerenal factors and weakness and dizziness. 3. Hypokalemia. 4. Anemia, macrocytic. 5. Hypomagnesemia. 6. Elevated alkaline phosphatase. 7. History of atrial fibrillation. 8. History of degenerative joint disease. 9. History of pulmonary embolism. 10.History of atrial fibrillation with rapid ventricular rate. 11.History of pancreatitis multiple times. 12.History of ethanol abuse. 13.History of right renal carcinoma; had surgery recently. 14.History of right lung pneumonia and chest tube. 15.History of polyps. 16.History of bariatric surgery. 17.History of bowel resection. 18.History of cholecystectomy. 19.History of nicotine dependence. 20.Obesity with body mass index of 33.5. RECOMMENDATIONS AND DISCUSSION: I recommend to continue current medications, continue with the monitoring, symptomatic treatment. Will replace potassium, magnesium. Otherwise, continue the rest of the medications. Symptomatic treatment. Also recommend ESR and CRP. Guarded prognosis because of multiple complex medical issues. Further recommendations to follow. MMODL / IJN: [id number] /
[2019-05-30] MEDS: MIDODRINE 5 MG TAB PO SCH (19:26)
[2019-05-30] MEDS: METOPROLOL TARTRATE 25 MG TAB PO SCH (20:41)
--- NOTE | 2019-05-30 21:01 | CONS ---
CONSULTATION REASON FOR CONSULTATION: Renal failure. HISTORY OF PRESENT ILLNESS: The patient is a 69-year-old male who has a history of paroxysmal atrial fibrillation, chronic CHF, mainly diastolic, history of right renal cell cancer, status post cryotherapy. Patient was admitted to the hospital with complaints of shortness of breath, increased weakness. His blood pressure has been low. Patient's serum creatinine was 1.8 mg/dL and it is at 1.6 now. Review of previous labs shows a creatinine of 1.2 on May 12 and prior to that 0.9 mg/dL. Patient is currently maintained on saline at 50 mL/hour. He states he is voiding. He is not on any diuretics. Patient denied any significant change in his home dose of diuretics prior to admission. PAST MEDICAL HISTORY: 1. CHF, diastolic. 2. History of nonsustained ventricular tachycardia. 3. Atrial fibrillation. 4. Osteoarthritis. 5. History of PE. 6. Diverticulitis. PAST SURGICAL HISTORY: 1. Bariatric surgery. 2. Bowel resection. 3. Cholecystectomy. 4. Hernia repair. 5. Cryoablation at [place]. 6. Bowel resection with colostomy which was later reversed. 7. Gastric sleeve procedure converted to Bibi-en-Y in 2013. 8. Paraesophageal hernia repair. 9. Inguinal and umbilical hernia repairs. 10.Colonoscopy. 11.Left knee arthroplasty. SOCIAL HISTORY: Patient is a former smoker. No history of drug abuse or alcohol abuse. MEDICATIONS: Medications prior to admission included: 1. Eliquis. 2. Protonix. 3. Potassium. 4. Multivitamins. 5. Lopressor. 6. Lasix. 7. Zyloprim. 8. Vitamin D. ALLERGIES: NONE. PHYSICAL EXAMINATION: Patient is comfortable, awake, alert, oriented x3, not in any acute distress. Blood pressure was 91/58, heart rate 87 per minute. Patient is afebrile. EXAMINATION OF THE HEART: S1 and S2. EXAMINATION OF LUNGS: Bilateral breath sounds are heard. ABDOMEN: Soft, non-tender, obese. Examination of lower extremities shows edema which is chronic, with significant chronic skin changes as well. SHOE LACER exam is grossly intact. LABS: Hemoglobin 8.9, white cell count 3.8, sodium 137, potassium 3.2, BUN 28, serum creatinine 1.6. UA is completely benign. No evidence of blood, protein or cells. ASSESSMENT: 1. Acute kidney injury secondary to hypotension and hypoperfusion, currently improved. I will discontinue the IV fluids. UA is completely benign. We will check an ultrasound of the kidneys. 2. History of right renal cell cancer, status post cryoablation therapy at [facility]. 3. Hypotension, etiology unclear. Check cortisol level. Start midodrine. 4. Hypomagnesemia secondary to diuretics. Will replace. 5. Hypokalemia secondary to diuretics, status post replacement. 6. Paroxysmal atrial fibrillation, maintained on anticoagulation. PLAN: Check random cortisol level. Check ultrasound of the kidneys. Discontinue IV fluids. Add midodrine. Add parameters for the Lopressor. Recommend to decrease dose to 12.5 mg from 25 mg, as blood pressure remains low. Patient's heart rate has been in the 60s to 80s beats per minute. Thank you for this consultation. Will continue to follow the patient with you during his hospitalization. MMODL / IJN: [id number] /
[2019-05-30] MEDS: TEMAZEPAM 15 MG CAP PO PRN (23:10)
[2019-05-31 07:43] LABS: Anisocytosis Moderate; Basophils % (A) 1 %; Eosinophils # (A) 0.1 k/uL (0-0.7); Eosinophils % (A) 3 %; HCT 28.4 % (39.0-53.0); Lymphocytes # (A) 1.2 k/uL (1.0-4.8); Lymphocytes % (A) 30 %; MCH 32.5 pg (25.0-35.0); MCHC 31.8 g/dL (31.0-37.0); MCV 102.1 fL (80.0-100.0); Macrocytosis Moderate; Mean Platelet Volume 8.6; Monocytes # (A) 0.3 k/uL (0-1.0); Monocytes % (A) 8 %; Neutrophils # (A) 2.1 k/uL (1.3-7.7); Neutrophils % (A) 55 %; Platelet Count 146 k/uL (150-450); RBC 2.79 m/uL (4.30-5.90); WBC 3.8 k/uL (3.8-10.6)
[2019-05-31 08:03] LABS: Calcium 7.6 mg/dL (8.4-10.2); Magnesium 1.9 mg/dL (1.6-2.3); Potassium 3.7 mmol/L (3.5-5.1)
[2019-05-31] MEDS: FOLIC ACID 1 MG TAB PO SCH (08:26)
[2019-05-31] MEDS: METOPROLOL TARTRATE 25 MG TAB PO SCH (08:26)
[2019-05-31] MEDS: MULTIVITAMINS, THERA 1 EACH TAB PO SCH (08:26)
[2019-05-31] MEDS: POTASSIUM CHLORIDE ER 10 MEQ TAB.ER.PRT PO SCH (08:26)
[2019-05-31] MEDS: ALLOPURINOL 300 MG TAB PO SCH (08:26)
[2019-05-31] MEDS: CHOLECALCIFEROL 1,000 UNIT TAB PO SCH (08:26)
[2019-05-31] MEDS: THIAMINE 100 MG TAB PO SCH (08:26)
[2019-05-31] MEDS: PANTOPRAZOLE 40 MG TABLET PO SCH ×2 (08:26→17:07)
[2019-05-31] MEDS: APIXABAN 5 MG TAB PO SCH ×2 (08:26→21:27)
[2019-05-31] MEDS: MIDODRINE 5 MG TAB PO SCH ×2 (08:27→17:07)
--- NOTE | 2019-05-31 08:45 | US ---
EXAMINATION TYPE: US renals and bladder DATE OF EXAM: 05/31/2019 COMPARISON: Multiple CT's, US CLINICAL HISTORY: renal call cancer, R. Patient states that the mass he had on his right kidney wasn't surgically removed, but "frozen" (cryo therapy). EXAM MEASUREMENTS: Right Kidney: 11.3 x 4.4 x 5.1 cm Left Kidney: 11.4 x 4.6 x 4.6 cm Patient of large body habitus carrying his weight in his abdomen. Technically difficult study. Right Kidney: isoechoic mass seen mid lower measuring 2.3 x 1.5 x 1.9cm with internal vascularity Left Kidney: A cyst is seen measuring 1.6 x 2.0 x 1.9cm. An additional exophytic mass is present of t he upper pole measuring 1.0 x 1.1 x 1.0cm there does not demonstrate definitive increased or transmis juan c and appears to have some shadowing. There is also a hyperechoic focus with shadowing probable st one measuring 0.8 x 0.6 x 0.6cm Bladder: wnl Bilateral Jets seen: not seen in 3 minutes IMPRESSION: Technically limited exam secondary to patient body habitus. 1. Mid pole right suspicious solid renal mass measures 2.3 cm. There is associated vascularity and th erefore dynamic enhanced CT of the abdomen is recommended to evaluate for enhancement as the prior si te of prior therapy should be avascular. 2. In addition to a left renal cyst there is a second probable complex exophytic cyst of the upper po le although this does not demonstrate ultrasound characteristics of a simple cyst and can be further evaluated on the above recommended CT. 3. Nonobstructing left renal calculus.
--- NOTE | 2019-05-31 08:54 | ECHOF ---
Referral Reason:lv function MEASUREMENTS -------- HEIGHT: 180.3 cm WEIGHT: 108.9 kg BP: 92/50 IVSd: 1.4 cm (0.6 - 1.1) LVIDd: 4.3 cm (3.9 - 5.3) LVPWd: 1.8 cm (0.6 - 1.1) IVSs: 2.2 cm LVIDs: 2.4 cm LVPWs: 1.7 cm LAESV Index (A-L): 36.80 ml/m FINDINGS -------- Sinus rhythm. LIMITED STUDY The left ventricular size is normal. There is moderate concentric left ventricular hypertrophy. O verall left ventricular systolic function is normal with, an EF between 55 - 60 %. Left atrium is moderately dilated by volume. RA appears enlarged There is no evidence of aortic regurgitation. There is no evidence of aortic stenosis. [id number] mitral regurgitation is present. There is no pericardial effusion. CONCLUSIONS -------- 1. Sinus rhythm. 2. LIMITED STUDY 3. The left ventricular size is normal. 4. There is moderate concentric left ventricular hypertrophy. 5. Overall left ventricular systolic function is normal with, an EF between 55 - 60 %. 6. Left atrium is moderately dilated by volume. 7. RA appears enlarged 8. There is no evidence of aortic regurgitation. 9. There is no evidence of aortic stenosis. 10. [id number] mitral regurgitation is present. 11. There is no pericardial effusion. PRODUCTION MECH[employer]IC [employer]: Ann Roach, [facility]
[2019-05-31] MEDS: MAGNESIUM OXIDE 400 MG TAB PO SCH ×2 (09:13→21:25)
[2019-05-31] MEDS: HYDROcodone/APAP 7.5-325MG 1 EACH TAB PO PRN ×2 (12:53→21:25)
--- NOTE | 2019-05-31 12:53 | P.PN ---
Subjective This is a pleasant 69-year-old male past medical history significant for chronic diastolic heart failure, paroxysmal atrial fibrillation on mcc anti-coagulation, chronic alcohol use, right renal carcinoma and history of non-sustained VT in the setting of electrolyte abnormalities. He follows in the office with Dr. Mcadams. Orthostatic vital signs unremarkable. Laboratory data reviewed, hgb 9.0, plt 146, sodium 140, potassium 3.7, creatinine 1.26, magnesium 1.9. Blood pressure 94/60 heart rate 69. GENERAL: This is a 69-year-old male in no apparent distress at the time of my examination. HEENT: Head is atraumatic, normocephalic. Pupils are equal, round. Sclerae anicteric. Conjunctivae are clear. Mucous membranes of the mouth are moist. Neck is supple. There is no jugular venous distention. No carotid bruit is heard. LUNGS: Clear to auscultation no wheezes, rales or rhonchi. No chest wall tenderness is noted on palpation or with deep breathing. HEART: Regular rate and rhythm without murmurs, rubs or gallops. S1 and S2 heard. EXTREMITIES: 1+ bilateral lower extremity pitting edema and no calf tenderness noted. ASSESSMENT Hypotension causing dizziness. Acute kidney injury secondary to hypotension and hypoperfusion Acute on chronic diastolic heart failure, mild Hypoalbuminemia Hypomagnesemia Hypokalemia Paroxysmal atrial fibrillation on mcc anticoagulation Chronic alcohol use Chronic anemia. PLAN Recommend HILDA hose. Add daily magnesium supplement. Recommend ongoing and complete alcohol cessation. Continue to hold lasix. Nurse Practitioner note has been reviewed, I agree with a documented findings and plan of care. Patient was seen and examined. Objective - Vital Signs Vital signs: Vital Signs Temp 97.6 F 05/31/19 05:00 Pulse 69 05/31/19 05:00 Resp 16 05/31/19 05:00 BP 94/60 05/31/19 05:00 Pulse Ox 98 05/31/19 05:00 Intake & Output 05/30/19 05/31/19 05/31/19 18:59 06:59 18:59 Intake Total 1400 990 Balance 1400 990 Intake: Intake, IV Titration 550 400 Amount Magnesium Sulfate-D5w Pmx 200 1 gm In Dextrose/Water 1 100ml.bag @ 100 mls/hr IVPB Q1H [facility] Rx#: [id number] Sodium Chloride 0.9% 1, 350 400 000 ml @ 50 mls/hr IV . Q20H [facility] Rx#:[id number] Oral 850 590 Other: Voiding Method Toilet Toilet # Voids 2 # Bowel Movements 1 - Labs CBC & Chem 7: 05/31/19 06:43 05/31/19 06:43 Labs: Abnormal Lab Results - Last 24 Hours (Table) 05/30/19 05/31/19 05/31/19 Range/Units 07:05 06:43 06:43 RBC 2.79 L (4.30-5.90) m/uL Hgb 9.0 L (13.0-17.5) gm/dL Hct 28.4 L (39.0-53.0) % MCV 102.1 H (80.0-100.0) fL RDW 20.0 H (11.5-15.5) % Plt Count 146 L (150-450) k/uL Chloride 110 H (98-107) mmol/L BUN 27 H (9-20) mg/dL Creatinine 1.26 H (0.66-1.25) mg/dL Calcium 7.6 L (8.4-10.2) mg/dL C-Reactive Protein 15.4 H (<10.0) mg/L
[2019-05-31] MEDS ORDERED: COSYNTROPIN 0.25 MG VIAL IVP ONE (14:15)
[2019-05-31] MEDS ORDERED: SODIUM FERRIC GLUCONAT-SUCROSE 125 MG in SODIUM CHLORIDE 0.9% 100 ML IVPB ONE (15:00)
--- NOTE | 2019-05-31 15:37 | PN ---
PROGRESS NOTE Patient is seen for followup for acute kidney injury, which was secondary to hypotension hypoperfusion. Renal function has improved significantly with creatinine down to 1.2 from 1.8 mg/dL. The patient received IV fluids initially, which are now discontinued. He does have a history of chronic CHF and is maintained on Lasix 40 mg p.o. b.i.d. at home, which we will continue upon discharge. Patient also has a history of right renal cell cancer, status post cryoablation. Ultrasound was done which shows a complex cyst on the left side and lesion on the right side as well. PHYSICAL EXAMINATION: This morning, patient is comfortable, awake, not in any acute distress. Blood pressure 91/59, heart rate 79 per minute. He is afebrile. Examination of the heart S1, S2. Examination of the lungs, bilateral breath sounds are heard. Abdomen is soft, nontender. Examination of the lower extremities shows chronic skin changes. chronic edema noted. DEPUTY DIRECTOR OF FINANCE exam is grossly intact. LABS: Sodium of 140, potassium 3.7, chloride 110, CO2 is 25, BUN 27, serum creatinine 1.26, hemoglobin at 9.0 g/dL, white cell count 3.8, albumin 2.1. UA was unremarkable. ASSESSMENT: 1. Acute kidney injury secondary to hypotension, hypoperfusion currently improved. We can resume oral Lasix and patient can be discharged home. 2. Hypotension maintained on midodrine. Patient's cortisol level was on the lower side at 7. He should have an ACTH stimulation test done to rule out underlying adrenal insufficiency. 3. Anemia, iron saturation was 16% on 05/12/2019. I will give him a dose of IV iron x1. 4. Right renal cell cancer, status post cryoablation therapy. Patient needs is to follow up with Urology as he also has a complex cyst on the left side. 5. Hypomagnesemia secondary to diuretics, currently replaced. PLAN: IV iron x1. The patient should have an ACTH stimulation test or see drainman as outpatient. Continue with the midodrine for now and follow up as outpatient in about one week's time. IV iron x1. MMODL / IJN: [id number] /
[2019-05-31] MEDS: SILVER sulfADIAZINE Cream 400 GM 1 APPLIC APPLIC TOPICAL SCH (16:13)
--- NOTE | 2019-05-31 19:40 | PN ---
PROGRESS NOTE DATE OF SERVICE: 05/31/2019. This 69-year-old gentleman who was admitted with multiple medical problems is being closely monitored at this time. The patient has a history of atrial fibrillation and cardiac issues also; however, currently the patient complains of weakness and tiredness. The patient also had elevated creatinine, which is significantly improving at this time. Multiple consultants are following the patient closely. Renal ultrasound shows multiple abnormalities as well, including a suspicious solid renal mass to be followed up in the outpatient setting. There is no history of any fever, rigor or chills. PHYSICAL EXAMINATION: Patient is alert, oriented x3. Pulse 79, blood pressure 91/59, respiration 20, temperature 96.9, pulse ox 100% on room air. HEENT: Conjunctivae normal. NECK: No jugular venous distention. CARDIOVASCULAR SYSTEM: S1, S2 muffled. RESPIRATORY SYSTEM: Breath sounds diminished at the bases. A few scattered rhonchi. No crackles. ABDOMEN: Soft, non-tender. No mass palpable. LEGS: No edema. No swelling. NERVOUS SYSTEM: No focal deficit. LABS: WBC 3.8, hemoglobin 9. MCV 102.1. Sodium 140, potassium 3.7. Creatinine is 1.26. ASSESSMENT: 1. Acute renal failure, possibly secondary to prerenal renal failure with acute tubular necrosis with dehydration, present on admission. 2. Relative hypotension because of prerenal factors and weakness and dizziness, improving. 3. Hypokalemia, improving. 4. Anemia, macrocytic. 5. Hypomagnesemia. 6. Elevated alkaline phosphatase. 7. History atrial fibrillation, chronic. 8. History of degenerative joint disease. 9. History of pulmonary embolus. 10.History atrial fibrillation with rapid ventricular rate. 11.History of pancreatitis multiple times. 12.History ethanol abuse. 13.History of right renal carcinoma; had surgery recently. 14.History of right lung pneumonia and chest tube. 15.History of polyps. 16.History of bariatric surgery. 17.History of bowel resection. 18.History of cholecystectomy. 19.History of nicotine dependence. 20.Obesity with body mass index of 35.3. RECOMMENDATIONS AND DISCUSSION: I recommend to continue current medications, continue with the monitoring, symptomatic treatment. Closely monitor. Guarded prognosis because of multiple complex medical issues. Further recommendations to follow. The ESR is only 2. CRP is also normal. Will repeat labs. Magnesium has been corrected. Guarded prognosis. Further recommendations to follow. Closely follow with Nephrology. Local treatment for the leg swelling. MMODL / IJN: [id number] /
[2019-05-31] MEDS: METOPROLOL TARTRATE 12.5 MG TAB PO SCH (21:26)
[2019-05-31] MEDS: TEMAZEPAM 15 MG CAP PO PRN (22:32)
[2019-06-01 07:41] LABS: Anisocytosis Moderate; Basophils % (A) 1 %; Eosinophils # (A) 0.1 k/uL (0-0.7); Eosinophils % (A) 3 %; HGB 8.8 gm/dL (13.0-17.5); Lymphocytes # (A) 1.3 k/uL (1.0-4.8); Lymphocytes % (A) 35 %; MCH 32.7 pg (25.0-35.0); MCHC 31.4 g/dL (31.0-37.0); Macrocytosis Marked; Mean Platelet Volume 8.6; Monocytes # (A) 0.3 k/uL (0-1.0); Monocytes % (A) 7 %; Neutrophils # (A) 1.9 k/uL (1.3-7.7); Neutrophils % (A) 51 %; Platelet Count 181 k/uL (150-450); RBC 2.69 m/uL (4.30-5.90); RDW 20.3 % (11.5-15.5); WBC 3.7 k/uL (3.8-10.6)
[2019-06-01 07:51] LABS: Calcium 7.9 mg/dL (8.4-10.2); Potassium 4.1 mmol/L (3.5-5.1)
[2019-06-01] MEDS: APIXABAN 5 MG TAB PO SCH ×2 (08:00→20:24)
[2019-06-01] MEDS: METOPROLOL TARTRATE 12.5 MG TAB PO SCH (08:00)
[2019-06-01] MEDS: MAGNESIUM OXIDE 400 MG TAB PO SCH ×2 (08:00→20:24)
[2019-06-01] MEDS: SILVER sulfADIAZINE Cream 400 GM 1 APPLIC APPLIC TOPICAL SCH (08:00)
[2019-06-01] MEDS: THIAMINE 100 MG TAB PO SCH (08:00)
[2019-06-01] MEDS: MULTIVITAMINS, THERA 1 EACH TAB PO SCH (08:00)
[2019-06-01] MEDS: MIDODRINE 5 MG TAB PO SCH ×3 (08:00→17:48)
[2019-06-01] MEDS: PANTOPRAZOLE 40 MG TABLET PO SCH ×2 (08:00→17:47)
[2019-06-01] MEDS: ALLOPURINOL 300 MG TAB PO SCH (08:00)
[2019-06-01] MEDS: FOLIC ACID 1 MG TAB PO SCH (08:00)
[2019-06-01] MEDS: CHOLECALCIFEROL 1,000 UNIT TAB PO SCH (08:01)
[2019-06-01] MEDS: POTASSIUM CHLORIDE ER 10 MEQ TAB.ER.PRT PO SCH (08:01)
[2019-06-01 08:05] LABS: Polychromasia Present
[2019-06-01 08:06] LABS: Large Platelets Present; Poikilocytosis (M) Present
[2019-06-01] MEDS ORDERED: METOPROLOL TARTRATE 25 MG TAB PO STA (08:30)
--- NOTE | 2019-06-01 14:08 | P.PN ---
Subjective This is a pleasant 69-year-old male past medical history significant for chronic diastolic heart failure, paroxysmal atrial fibrillation on penitentiary anti-coagulation, chronic alcohol use, right renal carcinoma and history of non-sustained VT in the setting of electrolyte abnormalities. He follows in the office with Dr. Mcadams. Pt seen and examined initially sitting up eating breakfast. He states he has been up and moving around his room without incident. His lower extremities were wrapped in JAKE wraps yesterday and significantly im proved his lower extremity swelling. Still has some mild but much improved. After leaving the room the patient got up to the bathroom. While in the bathroom his heart rate went up to around 130-140. Upon entering the bathroom the patient was pale, diaphoretic and feeling quite dizzy. He was assisted back to the chair and EKG was obtained. By the time is was taken he had been sitting down for approximately 10 minutes and his symptoms as well as his heart rate improved. EKG reviewed, reveals atrial fibrillation with controlled ventricular response and flat non-specific T-waves. GENERAL: This is a 69-year-old male in no apparent distress at the time of my examination. HEENT: Head is atraumatic, normocephalic. Pupils are equal, round. Sclerae anicteric. Conjunctivae are clear. Mucous membranes of the mouth are moist. Neck is supple. There is no jugular venous distention. No carotid bruit is heard. LUNGS: Clear to auscultation no wheezes, rales or rhonchi. No chest wall tenderness is noted on palpation or with deep breathing. HEART: Irregular rate and rhythm without murmurs, rubs or gallops. S1 and S2 heard. EXTREMITIES: Trace bilateral lower extremity pitting edema and no calf tenderness noted. ASSESSMENT Hypotension causing dizziness. Acute kidney injury secondary to hypotension and hypoperfusion Acute on chronic diastolic heart failure, mild Hypoalbuminemia Hypomagnesemia Hypokalemia Paroxysmal atrial fibrillation on penitentiary anticoagulation Chronic alcohol use Chronic anemia. PLAN Continue JAKE wraps for lower extremity edema. Continue to monitor blood pressures and heart rate closely. Further recommendations to follow. Nurse Practitioner note has been reviewed, I agree with a documented findings and plan of care. Patient was seen and examined. Objective - Vital Signs Vital signs: Vital Signs Temp 98.0 F 06/01/19 05:00 Pulse 58 L 06/01/19 05:00 Resp 16 06/01/19 05:00 BP 94/60 06/01/19 08:30 Pulse Ox 92 L 06/01/19 05:00 Intake & Output 05/31/19 06/01/19 06/01/19 18:59 06:59 18:59 Intake Total 830 Balance 830 Intake: Oral 830 Other: Voiding Method Toilet Toilet # Voids 5 3 - Labs CBC & Chem 7: 06/01/19 06:56 06/01/19 06:56 Labs: Abnormal Lab Results - Last 24 Hours (Table) 06/01/19 06/01/19 Range/Units 06:56 06:56 WBC 3.7 L (3.8-10.6) k/uL RBC 2.69 L (4.30-5.90) m/uL Hgb 8.8 L (13.0-17.5) gm/dL Hct 28.0 L (39.0-53.0) % MCV 104.0 H (80.0-100.0) fL RDW 20.3 H (11.5-15.5) % Macrocytosis Marked A Chloride 111 H (98-107) mmol/L BUN 24 H (9-20) mg/dL Glucose 72 L (74-99) mg/dL Calcium 7.9 L (8.4-10.2) mg/dL
--- NOTE | 2019-06-01 15:04 | XR ---
EXAMINATION TYPE: XR chest 1V portable DATE OF EXAM: 06/01/2019 COMPARISON: 05/29/2019 HISTORY: Congestive heart failure. Shortness of breath. TECHNIQUE: Single frontal view of the chest is obtained. FINDINGS: Increasing confluence of the right basilar opacity is concerning for pneumonia. Overall low lung volumes. Enlarged cardiomediastinal silhouette. Old right healed posterior mid rib fracture. Re maining osseous structures appear intact. IMPRESSION: Increasing confluence of the right basilar opacity suspicious for pneumonia. Follow-up t o resolution is recommended.
--- NOTE | 2019-06-01 15:27 | PN ---
PROGRESS NOTE DATE OF SERVICE: 06/01/2019 This is a 69-year-old gentleman who was admitted with acute renal failure, also had multiple other medical problems. Patient also had relative hypotension. The patient also had tachycardia. The EKG on admission showed sinus rhythm, multiple consultants are following the patient closely including Cardiology. Medication adjusted at this time. No chest pain, no palpitation. PHYSICAL EXAM: Alert and oriented x3, pulse 71, blood pressure 84/52, respiration 20, temperature 98 degrees, pulse ox 98% on room air. HEENT: Conjunctivae of: S1, S2 muffled. RESPIRATION: Breath sounds diminished in the bases, a few scattered rhonchi, no crackles. ABDOMEN: Soft, obese, nontender. LEGS: Bilateral leg edema. No swelling. LABS: Hemoglobin is 8.8, sodium 130, potassium 4.1 and calcium 7.9. ASSESSMENT: 1. Acute renal failure possibly secondary to prerenal acute renal failure, acute tubular necrosis with dehydration, present on admission. 2. Relative hypotension possibly because of prerenal factors, weakness and dizziness, improving. 3. Hypokalemia, improving. 4. Anemia macrocytic. 5. Hypomagnesemia. 6. History of increased alkaline phosphatase. 7. History atrial fibrillation, chronic. 8. History of degenerative joint disease. 9. History of pulmonary embolism. 10.Atrial ablation with rapid ventricular rate history. 11.History of pancreatitis, multiple times. 12.History EtOH abuse. 13.History of right renal carcinoma, had surgery recently. 14.History of right lung pneumonia and also chest tube insertion. 15.History of polyps. 16.History of bariatric surgery. 17.History of bowel resection. 18.History of cholecystectomy. 19.History of nicotine dependence. 20.Obesity with body mass index of 34.3. RECOMMENDATION: In this 69-year-old gentleman who presented with multiple complex medical issues, will monitor the patient closely, continue with the current management and symptomatic treatment. I would recommend continue with a bolus fluid at this time to maintain the blood pressure. Otherwise, continue to monitor. Prognosis guarded because of multiple complex medical issues and renal ultrasound showed multiple abnormalities to be followed up in the outpatient setting. Otherwise, I would also recommend chest x-ray also. Guarded prognosis. Further recommendations to follow. MMODL / IJN: [id number] /
[2019-06-01] MEDS ORDERED: FUROSEMIDE 40 MG TAB PO SCH (16:00)
--- NOTE | 2019-06-01 16:06 | PN ---
PROGRESS NOTE Patient is seen for acute kidney injury. His renal function has improved. Patient was maintained on IV fluids, which were discontinued. As a workup for hypotension, cosyntropin stimulation test was ordered, which turned out to be positive. The patient will be treated for adrenal insufficiency. On examination this morning, he is comfortable, awake, not in any acute distress. Blood pressure was 94/60, heart rate of 58 per minute. He is afebrile. EXAMINATION OF THE HEART: S1 and S2. EXAMINATION OF LUNGS: Bilateral breath sounds are heard. ABDOMEN: Soft, non-tender. Examination of lower extremities shows edema 1+ bilaterally. INTELLIGENCE SENIOR SERGEANT exam is grossly intact. Labs show sodium 139, potassium 4.1, BUN 24, serum creatinine 1.17, hemoglobin 8.8 g/dL. ASSESSMENT: 1. Acute kidney injury secondary to hypotension, hypoperfusion, currently improved. 2. Volume overload. We can resume oral diuretics. 3. History of right renal cell cancer, status post cryoablation therapy, with a left complex renal cyst and a lesion on the right kidney which will need to be followed up as outpatient with Urology. 4. Hypotension with workup positive for adrenal insufficiency. Patient will be started on Cortef. PLAN: Start Cortef 10 mg twice a day and add Lasix. Patient will need followup as outpatient with Endocrinology. MMODL / IJN: [id number] /
[2019-06-01] MEDS: HYDROcodone/APAP 7.5-325MG 1 EACH TAB PO PRN (19:17)
[2019-06-01] MEDS: HYDROCORTISONE 10 MG TAB PO SCH (20:24)
[2019-06-01] MEDS: TEMAZEPAM 15 MG CAP PO PRN (23:36)
[2019-06-02] MEDS: MIDODRINE 5 MG TAB PO SCH ×3 (06:26→17:12)
[2019-06-02] MEDS: PANTOPRAZOLE 40 MG TABLET PO SCH ×2 (06:26→17:12)
[2019-06-02] MEDS: HYDROcodone/APAP 7.5-325MG 1 EACH TAB PO PRN ×2 (06:27→20:45)
[2019-06-02] MEDS: POTASSIUM CHLORIDE ER 10 MEQ TAB.ER.PRT PO SCH (08:58)
[2019-06-02] MEDS: ALLOPURINOL 300 MG TAB PO SCH (08:58)
[2019-06-02] MEDS: MULTIVITAMINS, THERA 1 EACH TAB PO SCH (08:58)
[2019-06-02] MEDS: CHOLECALCIFEROL 1,000 UNIT TAB PO SCH (08:58)
[2019-06-02] MEDS: APIXABAN 5 MG TAB PO SCH ×2 (08:58→20:43)
[2019-06-02] MEDS: FOLIC ACID 1 MG TAB PO SCH (08:59)
[2019-06-02] MEDS: MAGNESIUM OXIDE 400 MG TAB PO SCH ×2 (08:59→20:44)
[2019-06-02] MEDS: THIAMINE 100 MG TAB PO SCH (08:59)
[2019-06-02] MEDS: HYDROCORTISONE 10 MG TAB PO SCH ×2 (08:59→20:44)
[2019-06-02] MEDS: SILVER sulfADIAZINE Cream 400 GM 1 APPLIC APPLIC TOPICAL SCH (09:16)
[2019-06-02 09:50] LABS: Calcium 8.2 mg/dL (8.4-10.2); Magnesium 1.9 mg/dL (1.6-2.3); Potassium 4.4 mmol/L (3.5-5.1)
--- NOTE | 2019-06-02 13:02 | XR ---
EXAMINATION TYPE: XR chest 1V portable DATE OF EXAM: 06/02/2019 CLINICAL HISTORY: Difficulty breathing and CHF progress study. TECHNIQUE: Single AP portable upright view of the chest is obtained. COMPARISON: Chest x-ray from one day earlier FINDINGS: The lung volumes redemonstrated. Cardiac silhouette size is stable and enlarged. There is c hronic parenchymal change with persistent right greater than left patchy bibasilar opacities. No larg e pleural effusion or pneumothorax. Osseous structures are intact. IMPRESSION: Overall stable findings, cardiomegaly and chronic parenchymal changes with right greate r than left patchy bibasilar acute infiltrate and/or atelectasis redemonstrated.
[2019-06-02] MEDS ORDERED: COSYNTROPIN 0.25 MG VIAL IVP ONE (15:00)
--- NOTE | 2019-06-02 16:01 | P.PN ---
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 He follows in the office with Dr. Mcadams. was seen and examined this morning, he's been up ambulating without any difficulty. Continues to have bilateral Inder wraps in place, edema seems to improve significantly. Blood pressure this morning 90/50, heart rate in the 80s, 98.2 temperature. D-dimer negative. Sodium 140, potassium 4.4, BUN 23 and creatinine 1.3. Objective - Vital Signs Vital signs: Vital Signs Temp 98.2 F 06/02/19 11:44 Pulse 80 06/02/19 11:46 Resp 16 06/02/19 11:46 BP 89/55 06/02/19 11:44 Pulse Ox 98 06/02/19 11:44 Intake & Output 06/01/19 06/02/19 06/02/19 18:59 06:59 18:59 Intake Total 1040 Output Total 300 Balance 740 Weight 114.4 kg Intake: Oral 1040 Output: Urine 300 Other: Voiding Method Toilet Toilet # Voids 2 - Exam GENERAL: This is a 69-year-old male in no apparent distress at the time of my examination. HEENT: Head is atraumatic, normocephalic. Pupils are equal, round. Sclerae anicteric. Conjunctivae are clear. Mucous membranes of the mouth are moist. Neck is supple. There is no jugular venous distention. No carotid bruit is heard. LUNGS: Clear to auscultation no wheezes, rales or rhonchi. No chest wall tenderness is noted on palpation or with deep breathing. HEART: Irregular rate and rhythm without murmurs, rubs or gallops. S1 and S2 heard. EXTREMITIES: Trace bilateral lower extremity pitting edema and no calf tenderness noted. - Labs CBC & Chem 7: 06/01/19 06:56 06/02/19 09:04 Labs: Abnormal Lab Results - Last 24 Hours (Table) 06/01/19 06/02/19 Range/Units 06:56 09:04 Chloride 111 H (98-107) mmol/L BUN 23 H (9-20) mg/dL Creatinine 1.30 H (0.66-1.25) mg/dL Glucose 101 H (74-99) mg/dL Calcium 8.2 L (8.4-10.2) mg/dL Procalcitonin 4.82 H (0.02-0.09) ng/mL Assessment and Plan Plan: ASSESSMENT and plan #1 Hypotension causing dizziness. #2 Acute kidney injury secondary to hypotension and hypoperfusion #3 Acute on chronic diastolic heart failure, mild #4Hypoalbuminemia #5 Hypomagnesemia #6 Hypokalemia Percent Paroxysmal atrial fibrillation on termite control technician anticoagulation #8 Chronic alcohol use #9 Chronic anemia. Plan From cardiology's perspective, we'll recommend to continue this patient on his current medications. We will follow him along with you now on an as-needed basis only, please don't hesitate to call with any questions. DNP note has been reviewed, I agree with a documented findings and plan of care. Patient was seen and examined.
--- NOTE | 2019-06-02 17:14 | PN ---
PROGRESS NOTE DATE OF SERVICE: 06/02/2019 This 69-year-old gentleman who was admitted with acute renal failure also had relative hypotension. Patient also had some tachycardia. The patient has been transferred to telemetry floor at this time. The patient is feeling dizziness. No chest pain. No palpitations. No fever. On exam, alert and oriented x3. Pulse is 80, blood pressure 89/55, respirations 16, temperature 98.2, pulse ox 98% on room air. HEENT: Conjunctivae normal. NECK: No jugular venous distention. CARDIOVASCULAR SYSTEM: S1, S2 muffled. RESPIRATORY SYSTEM: Breath sounds diminished at the bases. A few rhonchi. No crackles. ABDOMEN: Soft, non-tender. LEGS: Minimal edema. NERVOUS SYSTEM: No focal deficit. LABS: WBC 3.7, hemoglobin 8.8, and creatinine is 1.30. ASSESSMENT: 1. Acute renal failure, possibly secondary to prerenal acute renal failure and acute tubular necrosis with dehydration, present on admission. 2. Relative hypotension, possibly secondary to prerenal factors, weakness and dizziness. 3. Tachycardia, secondary sinus. 4. Hypokalemia, improving. 5. Anemia, macrocytic. 6. Hypomagnesemia. 7. History of increased alkaline phosphatase. 8. History of atrial fibrillation, paroxysmal. 9. History of degenerative joint disease. 10.History of pulmonary embolism. 11.Atrial ablation with rapid ventricular rate history. 12.History of pancreatitis multiple times. 13.History of ethanol abuse. 14.History of right renal carcinoma; had surgery recently. 15.History of right lung pneumonia and also chest tube insertion. 16.History of polyps. 17.History of bariatric surgery. 18.History of bowel resection. 19.History of cholecystectomy. 20.History of nicotine dependence. 21.Obesity with body mass index of 34.3. RECOMMENDATIONS AND DISCUSSION: I recommend to continue current medications, continue with the monitoring, symptomatic treatment. I would also recommend a chest x-ray. If the chest x-ray is normal, I would also recommend a D-dimer. If the D-dimer is positive, I would recommend a V/Q scan to rule out the possibility of pulmonary embolism. The prognosis is guarded because of multiple complex medical issues. Further recommendations to follow. Chest x-ray and further recommendations to follow. MMODL / IJN: [id number] /
--- NOTE | 2019-06-02 21:14 | PN ---
PROGRESS NOTE The patient is seen for followup for acute kidney injury. His renal function has improved. The patient was started on diuretics again yesterday. His Cortrosyn stimulation test was positive and patient was started on Cortef yesterday. He had developed nonsustained ventricular tachycardia. He is transferred to the telemetry floor. He is currently asymptomatic. He denies any significant complaints. PHYSICAL EXAMINATION: On examination, blood pressure was 89/55, heart rate 80 per minute. He is afebrile. Examination of the heart S1, S2. Examination of the lungs, bilateral breath sounds are heard. Abdomen is soft, nontender. Exam of lower extremities shows 1+ edema bilaterally. LABS: Show sodium 140, potassium 4.4, BUN 23, serum creatinine 1.3. Calcium was 8.2, magnesium 1.9. ASSESSMENT: 1. Acute kidney injury secondary to hypotension hypoperfusion currently improved. Serum creatinine slightly up from yesterday. Continue the midodrine. Blood pressure still remains on the lower side. Heart rate is currently stable. 2. Nonsustained ventricular tachycardia, being followed by Cardiology. 3. Hypokalemia, currently improved. 4. Underlying adrenal insufficiency. Maintained on Cortef. I will increase it to 15 mg twice a day as patient's blood pressure remains low. 5. History of right renal cell cancer status post cryoablation therapy. PLAN: Increase Cortef to 15 mg twice a day. Follow up with Cardiology. Repeat labs in a.m. MMANITA / ANGELITON: [id number] /
[2019-06-02] MEDS: TEMAZEPAM 15 MG CAP PO PRN (23:52)
[2019-06-03] MEDS ORDERED: COSYNTROPIN 0.25 MG VIAL IVP ONE (06:00)
[2019-06-03] MEDS: MIDODRINE 5 MG TAB PO SCH ×3 (06:42→15:24)
[2019-06-03] MEDS: PANTOPRAZOLE 40 MG TABLET PO SCH ×2 (06:42→15:24)
[2019-06-03 06:48] LABS: Anisocytosis Moderate; HCT 27.8 % (39.0-53.0); HGB 8.6 gm/dL (13.0-17.5); Hypochromasia Slight; MCH 32.3 pg (25.0-35.0); MCV 104.1 fL (80.0-100.0); Mean Platelet Volume 8.3; Platelet Count 217 k/uL (150-450); RBC 2.67 m/uL (4.30-5.90); RDW 20.3 % (11.5-15.5); WBC 4.4 k/uL (3.8-10.6)
[2019-06-03 07:01] LABS: Macrocytosis Marked
[2019-06-03 09:20] LABS: Calcium 8.2 mg/dL (8.4-10.2); Magnesium 1.8 mg/dL (1.6-2.3); Potassium 4.3 mmol/L (3.5-5.1)
[2019-06-03] MEDS: FOLIC ACID 1 MG TAB PO SCH (09:45)
[2019-06-03] MEDS: MAGNESIUM OXIDE 400 MG TAB PO SCH ×2 (09:45→21:03)
[2019-06-03] MEDS: APIXABAN 5 MG TAB PO SCH ×2 (09:45→21:03)
[2019-06-03] MEDS: THIAMINE 100 MG TAB PO SCH (09:45)
[2019-06-03] MEDS: ALLOPURINOL 300 MG TAB PO SCH (09:45)
[2019-06-03] MEDS: MULTIVITAMINS, THERA 1 EACH TAB PO SCH (09:45)
[2019-06-03] MEDS: CHOLECALCIFEROL 1,000 UNIT TAB PO SCH (09:45)
[2019-06-03] MEDS: POTASSIUM CHLORIDE ER 10 MEQ TAB.ER.PRT PO SCH (09:45)
[2019-06-03] MEDS: HYDROcodone/APAP 7.5-325MG 1 EACH TAB PO PRN ×2 (09:45→21:03)
[2019-06-03] MEDS: HYDROCORTISONE 10 MG TAB PO SCH ×2 (09:47→21:04)
[2019-06-03] MEDS: FUROSEMIDE 40 MG TAB PO SCH (11:33)
--- NOTE | 2019-06-03 13:11 | PN ---
PROGRESS NOTE DATE OF SERVICE: 06/03/2019 This is a 69-year-old gentleman admitted with acute renal failure also had relative hypotension. Patient also persistent tachycardia, which is postural in nature. The chest x-ray showed significant improvement and lab hill the creatinine is 1.28, which is rather stable at this time. The patient is being closely monitored at this time. The patient also had an ACTH stimulation test with minimal response up to 11. No chest pain. No palpitations. No fever. PAST MEDICAL HISTORY: Reviewed. REVIEW OF SYSTEMS: CARDIOVASCULAR: No angina. RESPIRATION: As mentioned earlier. GI: No nausea. : As mentioned earlier. NERVOUS SYSTEM: As mentioned earlier. CURRENT MEDICATIONS: 1. Sturkie 7.5 t.i.d. p.r.n. 2. Zyloprim 300 mg. 3. Xanax 0.5 t.i.d. 4. Eliquis 5 mg b.i.d. 5. Vitamin D3. 6. Folic acid 1 mg. 7. Lasix. 8. Symbicort 160 mg p.o. b.i.d. 9. Magnesium oxide 400 mg b.i.d. 10.ProAmatine. 11.Magnesium replacement. 12.Multivitamins. 13.Restoril. 14.Vitamin B1. PHYSICAL EXAM: Patient is alert, oriented x3. Pulse is 94, blood pressure 92/50, respiration 16, temperature 97.7, pulse ox 98% on room air. HEENT: Normal, oral mucosa moist. NECK: No jugular venous distention. No lymph node enlargement. CARDIOVASCULAR SYSTEM: S1, S2. RESPIRATION: Breath sound diminished at the bases, a few scattered rhonchi, no crackles. ABDOMEN: Soft, nontender. LEGS: Minimal edema, no swelling. LABS: WBC 3.7, hemoglobin 8.8, sodium 139, potassium 1.4. Creatinine is 1.26 and procalcitonin 4.82. ASSESSMENT: 1. Acute renal failure possibly secondary to prerenal acute renal failure, acute tubular necrosis as well as dehydration present on admission. 2. Related to hypotension, possibly secondary to prerenal factors, weakness and dizziness and possible adrenocortical insufficiency. 3. Tachycardia secondary to sinus. 4. Hypokalemia, improving. 5. Anemia, normocytic anemia, macrocytic. 6. Hypomagnesemia. 7. Increased alkaline phosphatase. 8. History of atrial fibrillation, paroxysmal. 9. History of degenerative joint disease. 10.History of pulmonary embolus. 11.Atrial fibrillation with rapid ventricular history. 12.History of pancreatitis with multiple times. 13.History of ETOH abuse. 14.History of right renal carcinoma, had surgery recently. 15.History of right lung pneumonia, also had chest tube insertion. 16.History of polyps. 17.History of bariatric surgery. 18.History of bowel resection. 19.History of cholecystectomy. 20.History of nicotine dependence. 21.Obesity with body mass index of 34.3. RECOMMENDATION: Recommend to continue current medications, continue with management and symptomatic treatment. Otherwise, at this time I would recommend continue with Lasix small dose. We will monitor the blood pressure closely. Increase ambulation. Cortef dose is being adjusted. Dr. Perales is following the patient closely. Further recommendations to follow. MMODL / IJN: [id number] /
--- NOTE | 2019-06-03 17:27 | PN ---
PROGRESS NOTE Patient is seen for followup for acute kidney injury. He was admitted with hypotension and acute kidney injury. Cortisol level was low. An ACTH stimulation test was positive for underlying adrenal insufficiency. The patient has been started on Cortef. In the meantime, renal function has improved. Patient was restarted on diuretics. Serum creatinine staying at about 1.3 to 1.2 mg/dL. On examination today, patient is comfortable. He denies any significant complaints. Heart rate was 76 per minute, blood pressure 89/45. EXAMINATION OF THE HEART: S1 and S2. EXAMINATION OF LUNGS: Bilateral breath sounds are heard. ABDOMEN: Soft, non-tender. Examination of lower extremities shows trace edema in the ankles, more in the thighs. [employer] exam is grossly intact. Labs show sodium 140, potassium 4.3, chloride 111, BUN 23, serum creatinine 1.28, hemoglobin 8.6 g/dL. ASSESSMENT: 1. Acute kidney injury secondary to hypotension, hypoperfusion, currently significantly improved. 2. Hypotension, mostly associated with underlying adrenal insufficiency; started on Cortef. 3. Right renal cell cancer, status post cryoablation therapy. 4. Left complex renal cyst. 5. Nonsustained ventricular tachycardia, being followed by Cardiology. 6. History of congestive heart failure with ejection fracture 55% to 60%, mainly diastolic dysfunction. PLAN: Add Lasix 40 mg p.o. daily, as patient has had a large weight gain since admission and is complaining of increased lower extremity edema. Cortef was increased yesterday. Continue with the midodrine as well. Patient should follow up with Endocrinology as outpatient. MMODL / IJN: [id number] /
--- NOTE | 2019-06-03 20:24 | PN ---
PROGRESS NOTE We were requested to see this patient in consultation because of low blood pressure. This patient has evidence of orthostatic hypotension. He feels slightly dizzy when he stands up. Patient's blood pressure remains 80 to 90 systolic. First and second heart sounds are normal. Lungs are clinically clear to auscultation and percussion. The patient is advised to use elastic stockings. The patient's midodrine is increased to 15 mg 3 times a day. Continue Cortef once a day because of the low cortisol levels. Patient is advised to get up very slowly and not change position very fast. MMODL / IJN: [id number] /
[2019-06-03] MEDS: TEMAZEPAM 15 MG CAP PO PRN (23:31)
[2019-06-04] MEDS: MIDODRINE 5 MG TAB PO SCH ×3 (06:46→16:25)
[2019-06-04] MEDS: PANTOPRAZOLE 40 MG TABLET PO SCH ×2 (06:46→16:25)
[2019-06-04 08:37] LABS: Anisocytosis Slight; HCT 31.2 % (39.0-53.0); HGB 9.6 gm/dL (13.0-17.5); Hypochromasia Marked; MCH 32.2 pg (25.0-35.0); MCHC 30.7 g/dL (31.0-37.0); Macrocytosis Marked; Mean Platelet Volume 8.5; Platelet Count 246 k/uL (150-450); RBC 2.97 m/uL (4.30-5.90); RDW 19.2 % (11.5-15.5); WBC 4.8 k/uL (3.8-10.6)
[2019-06-04 08:49] LABS: Calcium 8.3 mg/dL (8.4-10.2); Magnesium 1.7 mg/dL (1.6-2.3)
[2019-06-04] MEDS: ALLOPURINOL 300 MG TAB PO SCH (09:13)
[2019-06-04] MEDS: MULTIVITAMINS, THERA 1 EACH TAB PO SCH (09:13)
[2019-06-04] MEDS: APIXABAN 5 MG TAB PO SCH ×2 (09:13→21:13)
[2019-06-04] MEDS: FUROSEMIDE 40 MG TAB PO SCH (09:13)
[2019-06-04] MEDS: POTASSIUM CHLORIDE ER 10 MEQ TAB.ER.PRT PO SCH (09:13)
[2019-06-04] MEDS: MAGNESIUM OXIDE 400 MG TAB PO SCH ×2 (09:13→21:13)
[2019-06-04] MEDS: THIAMINE 100 MG TAB PO SCH (09:13)
[2019-06-04] MEDS: CHOLECALCIFEROL 1,000 UNIT TAB PO SCH (09:14)
[2019-06-04] MEDS: FOLIC ACID 1 MG TAB PO SCH (09:14)
[2019-06-04] MEDS: HYDROCORTISONE 10 MG TAB PO SCH ×2 (09:15→16:25)
--- NOTE | 2019-06-04 10:58 | P.PN ---
Subjective Progress Note Date: 06/04/19 Principal diagnosis: This is a 69-year-old male seen in consultation because of acute kidney injury, hypertension. He came to the emergency room with complaints of hypotensive epi sodes and dizziness He was started on Cortef 15 g twice a day as of yesterday 06/03/2019 This morning he is not feeling any different. Continues to have dizziness when he stands up. Also complaining of fatigue and tiredness. The dry cough. He denies any shortness of breath. No nausea vomiting diarrhea abdominal pain no fever chills Objective - Vital Signs Vital signs: Vital Signs Temp 98.1 F 06/04/19 08:00 Pulse 84 06/04/19 08:00 Resp 16 06/04/19 08:00 BP 116/72 06/04/19 08:00 Pulse Ox 99 06/04/19 08:00 Intake & Output 06/03/19 06/04/19 06/04/19 18:59 06:59 18:59 Intake Total 1290 40 368 Output Total 300 Balance 1290 -260 368 Weight 113.6 kg Intake: IV 50 40 10 Invasive Line 1 10 Invasive Line 2 40 40 10 Oral 1240 358 Output: Urine 300 Other: Voiding Method Urinal Urinal Urinal # Voids 1 1 2 # Bowel Movements 0 1 2 On examination is awake alert oriented comfortable HEENT exam no JVP neck is supple no facial asymmetry Lungs are clear to auscultation and percussion good air entry bilaterally Heart sounds are unremarkable for any murmur rub gallop Seems to be normal sinus rhythm. Abdomen soft nontender no organomegaly status masses Extremity exam was trace edema Neurologically awake alert oriented no focal motor deficit no asterixis - Labs CBC & Chem 7: 06/04/19 08:20 06/04/19 08:20 Labs: Abnormal Lab Results - Last 24 Hours (Table) 06/04/19 06/04/19 Range/Units 08:20 08:20 RBC 2.97 L (4.30-5.90) m/uL Hgb 9.6 L (13.0-17.5) gm/dL Hct 31.2 L (39.0-53.0) % MCV 105.0 H (80.0-100.0) fL MCHC 30.7 L (31.0-37.0) g/dL RDW 19.2 H (11.5-15.5) % Macrocytosis Marked A Chloride 110 H (98-107) mmol/L Carbon Dioxide 21 L (22-30) mmol/L BUN 27 H (9-20) mg/dL Creatinine 1.44 H (0.66-1.25) mg/dL Glucose 147 H (74-99) mg/dL Calcium 8.3 L (8.4-10.2) mg/dL Assessment and Plan Assessment: Impression 1. Acute kidney injury secondary to low blood pressure. Creatinine was 1.17 on 06/01/2019 and slowly has gone up to 1.44. 2. His baseline creatinine was 0.7-0.9 earlier in February and April 2019. Urinal ysis on 05/29/2019 shows negative proteinuria. 3. Mild degree of non-gap acidosis. Bicarb is 21 and gap is 9. Cause of this is acute kidney injury 4. Cortisone levels are in the borderline range. There was presumably no response to ACTH. ACTH level were low less than 5 A 60 levels are low. A possibility of then secondary adrenal insufficiency is entertained albeit the response should have been robust, with increase in serum cortisol level post- ACTH. Probably this needs to have reassessed by student financial aid manager. 5. History of right kidney cancer with ablation therapy. An ultrasound shows suspicious mass and likely needs Computed tomography scan 6. Hypotension, likely from alcoholism and possible cardiomyopathy. 7. history of atrial fibrillation, history of nonsustained V. tach. Echocardiogram dated 05/30/2019 shows ejection fraction of 55-60%. Recommendation 1. Maintain current medications 2. Would suggest endocrinology consult to read due to the results of the adren al insufficiency. 3. Maintain blood pressure, currently on maximum midodrin 15. 3 times a day
[2019-06-04] MEDS: HYDROcodone/APAP 7.5-325MG 1 EACH TAB PO PRN (16:32)
--- NOTE | 2019-06-04 17:55 | PN ---
PROGRESS NOTE DATE OF SERVICE: 06/04/2019. This 69-year-old gentleman who was admitted with acute renal failure possibly secondary to prerenal acute renal failure, acute tubular necrosis with dehydration is being closely monitored at this time. The patient also had relative hypotension, tachycardia especially postural related. Cardiology following the patient closely and continue to monitor. No chest pain. No palpitation. EXAM: Alert and oriented times three. Pulse 121, regular. Blood pressure 101/60. Respirations 16, temperature 98.2, pulse ox 94% on room air. HEENT are conjunctivae normal. NECK: No jugular venous distention. CARDIOVASCULAR: S1, S2 muffled. RESPIRATIONS: Breath sounds diminished in the bases. No rhonchi. No crackles. ABDOMEN soft. Obese. LEGS: Minimal leg edema. NERVOUS SYSTEM: No focal deficits. LAB STUDIES: WBC 4.8, hemoglobin 10.6, sodium 142, potassium 4, creatinine 1.44. ASSESSMENT: 1. Acute renal failure possibly secondary to prerenal acute renal failure acute tubular necrosis as well as dehydration present on admission. 2. Relative hypotension possibly secondary to prerenal factors, weakness, dizziness, possible also had cortical insufficiency. 3. Tachycardia secondary to possible sinus postural. 4. Hypokalemia, improving. 5. Anemia, macrocytic possibly nutritional in origin. 6. Hypomagnesemia. 7. Increased alkaline phosphatase. 8. History of atrial fibrillation, paroxysmal. 9. History of degenerative joint disease. 10.History of pulmonary embolus. 11.History of atrial fibrillation with rapid ventricular rate. 12.History of pancreatitis multiple times. 13.History of ethanol abuse. 14.History of right renal carcinoma, had surgery recently from elsewhere. 15.History of right lung pneumonia, had chest tube insertion previously. 16.History of polyps. 17.History of bariatric surgery. 18.History of bowel resection. 19.History of cholecystectomy. 20.History of nicotine dependence. 21.Obesity with body mass index of 34.3. RECOMMENDATIONS AND DISCUSSION: Recommend to continue current medications, continue with monitoring, symptomatic treatment. Otherwise, at this time, I recommend continue with current medication, continue symptomatic treatment. Continue to monitor blood pressure and heart rate closely. We will supplement vitamins also. Further recommendations to follow. MMODL / IJN: [id number] /
[2019-06-04] MEDS: TEMAZEPAM 15 MG CAP PO PRN (23:28)
[2019-06-05] MEDS: HYDROcodone/APAP 7.5-325MG 1 EACH TAB PO PRN ×2 (05:35→18:32)
[2019-06-05] MEDS: PANTOPRAZOLE 40 MG TABLET PO SCH ×2 (06:59→17:57)
[2019-06-05] MEDS: MIDODRINE 5 MG TAB PO SCH ×3 (06:59→17:56)
[2019-06-05] MEDS: ALLOPURINOL 300 MG TAB PO SCH (08:45)
[2019-06-05] MEDS: CHOLECALCIFEROL 1,000 UNIT TAB PO SCH (08:45)
[2019-06-05] MEDS: MULTIVITAMINS, THERA 1 EACH TAB PO SCH (08:45)
[2019-06-05] MEDS: HYDROCORTISONE 10 MG TAB PO SCH (08:45)
[2019-06-05] MEDS: MAGNESIUM OXIDE 400 MG TAB PO SCH ×2 (08:46→20:44)
[2019-06-05] MEDS: POTASSIUM CHLORIDE ER 10 MEQ TAB.ER.PRT PO SCH (08:46)
[2019-06-05] MEDS: APIXABAN 5 MG TAB PO SCH ×2 (08:46→20:44)
[2019-06-05] MEDS: FUROSEMIDE 40 MG TAB PO SCH (08:49)
[2019-06-05 10:50] VITALS: BMI 34.5
--- NOTE | 2019-06-05 11:03 | P.PN ---
Subjective This is a pleasant 69-year-old male past medical history significant for chronic diastolic heart failure, paroxysmal atrial fibrillation on intermediate anti-coagulation, chronic alcohol use, right renal carcinoma and history of non-sustained VT in the setting of electrolyte abnormalities. He follows in the office with Dr. Mcadams. We have been asked to reevaluate this patient secondary to positional tachycardia. The patient was seen and examined resting comfortably lying flat in bed in no acute distress. HEENT denies symptoms of chest discomfort, palpitations, dizziness or shortness of breath. He states when he gets up to the bathroom at times he feels mildly dizzy but denies palpitations. Blood pressure 86/47 heart rate 110 afebrile maintaining oxygen saturation on room air. GENERAL: This is a 69-year-old male in no apparent distress at the time of my examination. HEENT: Head is atraumatic, normocephalic. Pupils are equal, round. Sclerae anicteric. Conjunctivae are clear. Mucous membranes of the mouth are moist. Neck is supple. There is no jugular venous distention. No carotid bruit is heard. LUNGS: Clear to auscultation no wheezes, rales or rhonchi. No chest wall tenderness is noted on palpation or with deep breathing. HEART: Regular rate and rhythm without murmurs, rubs or gallops. S1 and S2 heard. EXTREMITIES: Trace bilateral lower extremity pitting edema and no calf tenderness noted. ASSESSMENT Orthostatic hypotension, dysautomonia. Acute kidney injury secondary to hypotension and hypoperfusion Acute on chronic diastolic heart failure, mild Hypoalbuminemia Hypomagnesemia Hypokalemia Paroxysmal atrial fibrillation on intermediate anticoagulation. Currently maintaining sinus mechanism. Chronic alcohol use Chronic anemia. PLAN Resume beta blockers at a low dose 12.5 mg twice a day. HILDA laurent recommended. Patient states he has been wearing during daytime hours. Advised to change position slowly and sit at the edge of the bed prior to walking. Agree with endocrinology evaluation. Nurse Practitioner note has been reviewed, I agree with a documented findings and plan of care. Patient was seen and examined. Objective - Vital Signs Vital signs: Vital Signs Temp 98.2 F 06/05/19 07:27 Pulse 111 H 06/05/19 07:27 Resp 18 06/05/19 07:30 BP 86/47 06/05/19 07:27 Pulse Ox 95 06/05/19 07:27 Intake & Output 06/04/19 06/05/19 06/05/19 18:59 06:59 18:59 Intake Total 1008 200 Output Total 200 275 400 Balance 808 -275 -200 Weight 112.3 kg 112.3 kg Intake: IV 30 Invasive Line 2 30 Oral 978 200 Output: Urine 200 275 400 Other: Voiding Method Urinal Urinal Urinal # Voids 2 2 # Bowel Movements 2 - Labs CBC & Chem 7: 06/04/19 08:20 06/04/19 08:20
--- NOTE | 2019-06-05 12:04 | P.PN ---
Subjective Progress Note Date: 06/05/19 Principal diagnosis: This is a 69-year-old male seen in consultation because of acute kidney injury, hypotension. He came to the emergency room with complaints of hypotensive epis odes and dizziness He was started on Cortef 15 mg twice a day as of 06/03/2019. He continues to f eel dizziness when he stands up. He denies any shortness of breath. No nausea vomiting diarrhea abdominal pain no fever chills. He is off of diuretics because of the low blood pressure although he has fair amount of edema which is x-ray is not suggestive of any pulmonary edema Objective - Vital Signs Vital signs: Vital Signs Temp 98.2 F 06/05/19 07:27 Pulse 111 H 06/05/19 07:27 Resp 18 06/05/19 07:30 BP 86/47 06/05/19 07:27 Pulse Ox 95 06/05/19 07:27 Intake & Output 06/04/19 06/05/19 06/05/19 18:59 06:59 18:59 Intake Total 1008 200 Output Total 200 275 400 Balance 808 -275 -200 Weight 112.3 kg 112.3 kg Intake: IV 30 Invasive Line 2 30 Oral 978 200 Output: Urine 200 275 400 Other: Voiding Method Urinal Urinal Urinal # Voids 2 2 # Bowel Movements 2 On exam she is awake alert oriented HEENT exam no JVP neck is supple no facial asymmetry Lungs are clear to auscultation good air entry bilaterally Heart sounds are unremarkable for any murmur rub gallop Abdomen is obese but nontender no organomegaly ascites noted Extremity exam was 2+ edema he is wearing bilateral tight hoses Neurologically awake alert oriented - Labs CBC & Chem 7: 06/04/19 08:20 06/04/19 08:20 Assessment and Plan Assessment: Impression 1. Acute kidney injury secondary to low blood pressure. Creatinine was 1.8 on 05/29/2019 when down to 1.17 on 06/01/2019 and is up to 1.44 as of yesterday. 2. His baseline creatinine was 0.7-0.9 earlier in February and April 2019. Urinalysis on 05/29/2019 shows negative proteinuria. 3. Mild degree of non-gap acidosis. Bicarb is 21 and gap is 9. Cause of this is acute kidney injury 4. Cortisol levels are in the borderline range. There was presumably no response to ACTH. ACTH level were low less than 5. A possibility of secondary adrenal insufficiency is entertained albeit the response to ACTH should have been robust, with increase in serum cortisol level post-ACTH. 5. History of right kidney cancer with ablation therapy. An ultrasound shows suspicious mass and likely needs Computed tomography scan 6. Hypotension, likely from alcoholism and possible cardiomyopathy. ejection fraction is 55% 7. history of atrial fibrillation, history of nonsustained V. tach. Echocardiogram dated 05/30/2019 shows ejection fraction of 55-60%. 8. Significant edema on HILDA hoses Recommendation 1. For now do not resume the Lasix that he was on although he has significant edema. 2. Would suggest endocrinology consult to evaluate adrenal insufficiency. 3. Maintain blood pressure, currently on maximum midodrin 15. 3 times a day 4. Maintain the HILDA hoses 5. Restrict the use of pantoprazole to a few weeks only as his related to chronic kidney disease in the more recent literature
[2019-06-05] MEDS: FOLIC ACID 1 MG TAB PO SCH (12:59)
[2019-06-05] MEDS: THIAMINE 100 MG TAB PO SCH (12:59)
[2019-06-05] MEDS: METOPROLOL TARTRATE 12.5 MG TAB PO SCH ×2 (12:59→20:44)
[2019-06-05 13:02] LABS: Calcium 8.4 mg/dL (8.4-10.2); Potassium 4.4 mmol/L (3.5-5.1)
[2019-06-05] MEDS: FLUDROCORTISONE 0.1 MG TAB PO SCH (16:17)
[2019-06-05] MEDS: HYDROCORTISONE SUCCINATE 100 MG/2 ML VIAL IV SCH (16:17)
--- NOTE | 2019-06-05 18:52 | PN ---
PROGRESS NOTE DATE OF SERVICE: 06/05/2019. This 69-year-old gentleman who was admitted with acute renal failure possibly secondary to prerenal acute tubular necrosis is being closely monitored at this time. Patient also has relative hypotension as well as orthostatic and possible tachycardia also. The patient being closely monitored. Cardiology is following the patient closely as well as Nephrology. Cardiology has recommended small dose of beta blockers and nephrology has recommended Lasix also. Patient being closely monitored at this time. No chest pain. No palpitations. No fever. EXAM: Alert and oriented x3. Pulse 64. Blood pressure 90/52, respiration 18, temperature 97 degrees, pulse ox is 98% on room air. HEENT: Conjunctivae normal. NECK: No JVD. CARDIOVASCULAR: S1, S2 muffled. RESPIRATIONS: Breath sounds diminished in the bases. No rhonchi. No crackles. ABDOMEN is soft, nontender. No mass palpable. LEGS: No edema. No swelling. NERVOUS SYSTEM: No focal deficits. LABS: Creatinine is 1.66. ASSESSMENT: 1. Acute renal failure possibly secondary to prerenal acute renal failure with acute tubular necrosis as well as dehydration, present on admission. 2. Relative hypotension possibly secondary to prerenal factors, weakness, dizziness, possible also adrenocortical deficiency. 3. Tachycardia secondary to possible sinus postural. 4. Hypokalemia, improving. 5. Anemia, microcytic, possibly nutritional in origin. 6. Hypomagnesemia. 7. Increased alkaline phosphatase. 8. History of atrial fibrillation, paroxysmal. 9. History of degenerative joint disease. 10.History of pulmonary embolus. 11.History of atrial fibrillation with rapid ventricular rate. 12.History of pancreatitis, multiple times. 13.History of EtOH abuse. 14.History of right renal carcinoma, had surgery recently from elsewhere. 15.History of right lung pneumonia, had chest tube inserted previously. 16.History of polyps. 17.History of bariatric surgery. 18.History of bowel resection. 19.History of cholecystectomy. 20.History of nicotine dependence. 21.Obesity with body mass index of 34.3. RECOMMENDATIONS AND DISCUSSION: Recommend to continue current medications, continue symptomatic treatment. Otherwise, at this time, we will monitor the patient closely. Continue with beta blockers and diuretics. I would also recommend increase the dose of Cortef also. Continue to monitor. Further recommendations to follow. MMODL / IJN: [id number] /
[2019-06-05 19:31] LABS: Appearance,Urine Cloudy (Clear); Bilirubin,Urine Negative (Negative); Blood,Urine Negative (Negative); Color,Urine Yellow; Glucose,Urine (UA) Negative (Negative); Hyaline Casts,Urine 11 /lpf (0-2); Ketones,Urine Negative (Negative); Leukocyte Esterase,Urine Trace (Negative); Mucus,Urine Rare /hpf; Nitrite,Urine Negative (Negative); Protein,Urine Negative (Negative); Urobilinogen,Urine <2.0 mg/dL (<2.0); WBC,Urine 4 /hpf (0-5)
[2019-06-06] MEDS: HYDROCORTISONE SUCCINATE 100 MG/2 ML VIAL IV SCH ×4 (00:21→23:19)
[2019-06-06] MEDS: TEMAZEPAM 15 MG CAP PO PRN (00:21)
[2019-06-06] MEDS: HYDROCORTISONE 10 MG TAB PO SCH (00:39)
[2019-06-06 06:21] LABS: Anisocytosis Slight; Basophils % (A) 0 %; Eosinophils % (A) 1 %; HCT 27.8 % (39.0-53.0); Lymphocytes # (A) 0.6 k/uL (1.0-4.8); Lymphocytes % (A) 12 %; MCH 33.2 pg (25.0-35.0); MCHC 32.4 g/dL (31.0-37.0); MCV 102.4 fL (80.0-100.0); Macrocytosis Moderate; Mean Platelet Volume 8.3; Monocytes # (A) 0.1 k/uL (0-1.0); Monocytes % (A) 3 %; Neutrophils # (A) 4.3 k/uL (1.3-7.7); Neutrophils % (A) 83 %; Platelet Count 267 k/uL (150-450); RBC 2.72 m/uL (4.30-5.90); RDW 19.7 % (11.5-15.5); WBC 5.1 k/uL (3.8-10.6)
[2019-06-06 06:30] LABS: Calcium 8.1 mg/dL (8.4-10.2); Potassium 3.8 mmol/L (3.5-5.1)
[2019-06-06] MEDS: PANTOPRAZOLE 40 MG TABLET PO SCH ×2 (06:52→17:06)
[2019-06-06] MEDS: MIDODRINE 5 MG TAB PO SCH ×3 (06:53→17:06)
[2019-06-06] MEDS: FUROSEMIDE 40 MG TAB PO SCH ×2 (09:03→13:54)
[2019-06-06] MEDS: METOPROLOL TARTRATE 12.5 MG TAB PO SCH ×2 (09:03→20:32)
[2019-06-06] MEDS: APIXABAN 5 MG TAB PO SCH ×2 (09:37→20:33)
[2019-06-06] MEDS: MULTIVITAMINS, THERA 1 EACH TAB PO SCH (09:37)
[2019-06-06] MEDS: HYDROcodone/APAP 7.5-325MG 1 EACH TAB PO PRN ×2 (09:37→20:32)
[2019-06-06] MEDS: MAGNESIUM OXIDE 400 MG TAB PO SCH ×2 (09:37→20:33)
[2019-06-06] MEDS: ALLOPURINOL 300 MG TAB PO SCH (09:37)
[2019-06-06] MEDS: FLUDROCORTISONE 0.1 MG TAB PO SCH (09:37)
[2019-06-06] MEDS: CHOLECALCIFEROL 1,000 UNIT TAB PO SCH (09:37)
[2019-06-06] MEDS: POTASSIUM CHLORIDE ER 10 MEQ TAB.ER.PRT PO SCH (09:38)
[2019-06-06] MEDS: THIAMINE 100 MG TAB PO SCH (11:22)
[2019-06-06] MEDS: FOLIC ACID 1 MG TAB PO SCH (11:22)
--- NOTE | 2019-06-06 12:40 | P.PN ---
Subjective Patient is seen in follow-up for acute kidney injury. Renal function is improving. Creatinine 1.37 today. Does have swelling in his lower extremities. He has been voiding but small amounts at a time. does feel a little dizzy when stands. Vital signs are stable. General: The patient appeared well nourished and normally developed. HEENT: Head exam is unremarkable. Neck is without jugular venous distension. LUNGS: Lungs are clear to auscultation and percussion. Breath sounds decreased. HEART: Rate and Rhythm are regular. First and second heart sounds normal. No murmurs, rubs or gallops. ABDOMEN: Abdominal exam reveals normal bowel sounds. Non-tender and non- distended. No evidence of peritonitis. EXTREMITITES: 1+ edema. Objective - Vital Signs Vital signs: Vital Signs Temp 98.1 F 06/06/19 08:00 Pulse 64 06/06/19 08:00 Resp 18 06/06/19 08:00 BP 108/56 06/06/19 08:00 Pulse Ox 95 06/06/19 08:00 Intake & Output 06/05/19 06/06/19 06/06/19 18:59 06:59 18:59 Intake Total 556 360 Output Total 1500 500 105 Balance -944 -500 255 Weight 112.3 kg 111.3 kg Intake: Oral 556 360 Output: Urine 1500 500 105 Other: Voiding Method Urinal Urinal - Labs CBC & Chem 7: 06/06/19 05:59 06/06/19 05:59 Labs: Abnormal Lab Results - Last 24 Hours (Table) 06/05/19 06/05/19 06/06/19 Range/Units 12:14 19:00 05:59 RBC 2.72 L (4.30-5.90) m/uL Hgb 9.0 L (13.0-17.5) gm/dL Hct 27.8 L (39.0-53.0) % MCV 102.4 H (80.0-100.0) fL RDW 19.7 H (11.5-15.5) % Lymphocytes # 0.6 L (1.0-4.8) k/uL BUN 31 H (9-20) mg/dL Creatinine 1.66 H (0.66-1.25) mg/dL Glucose (74-99) mg/dL Calcium (8.4-10.2) mg/dL Ur Leukocyte Esterase Trace H (Negative) Hyaline Casts 11 H (0-2) /lpf Urine Mucus Rare H (None) /hpf 06/06/19 Range/Units 05:59 RBC (4.30-5.90) m/uL Hgb (13.0-17.5) gm/dL Hct (39.0-53.0) % MCV (80.0-100.0) fL RDW (11.5-15.5) % Lymphocytes # (1.0-4.8) k/uL BUN 33 H (9-20) mg/dL Creatinine 1.37 H (0.66-1.25) mg/dL Glucose 112 H (74-99) mg/dL Calcium 8.1 L (8.4-10.2) mg/dL Ur Leukocyte Esterase (Negative) Hyaline Casts (0-2) /lpf Urine Mucus (None) /hpf Assessment and Plan Plan: Assessment: 1. Acute kidney injury mostly prerenal secondary to hypotension. Improving. Creatinine 1.37 today. UA benign. Baseline creatinine near 1. 2. Hypotension. ?Secondary adrenal insufficiency. Currently on Solu-Cortef, Florinef and midodrine. Will need to follow-up with endocrinology outpatient. 3. Lower extremity edema. 4. Anemia. Rule out iron deficiency. Plan: Lasix 40 mg once today. Check iron studies. Repeat electrolytes in the morning.
--- NOTE | 2019-06-06 18:02 | PN ---
PROGRESS NOTE DATE OF SERVICE: 06/06/2019 This 69-year-old gentleman who was admitted with dizziness and hypotension also had possible adrenocortical insufficiency. The patient also had multiple medical issues, including renal failure. The patient is on high-dose IV steroids at this time. The patient is being closely monitored at this time. Repeat ACTH level was normal. PT/OT is also evaluating the patient because the patient is complaining of significant weakness at this time. No chest pain. No palpitations. No fever. PHYSICAL EXAMINATION: Alert and oriented x2. Pulse 64, blood pressure 94/58, respiration 18, temperature normal, pulse ox 95% on room air. HEENT: Conjunctivae normal. NECK: No jugular venous distention. CARDIOVASCULAR SYSTEM: S1, S2 muffled. RESPIRATORY SYSTEM: Breath sounds diminished at the bases. No rhonchi. No crackles. ABDOMEN: Soft, non-tender. LEGS: Minimal edema. NERVOUS SYSTEM: No focal deficit. LABS: WBC n, hemoglobin n. Otherwise, creatinine is 1.3. ASSESSMENT: 1. Acute renal failure, possibly secondary to prerenal acute renal failure with acute tubular necrosis with dehydration, present on admission. 2. Relative hypotension, possibly multiple factors, including prerenal factors and the possibility of acute adrenocortical insufficiency. 3. Tachycardia, possibly postural. 4. Hypokalemia, improving. 5. Hypomagnesemia. 6. Anemia, microcytic, possibly nutritional in nature. 7. Increased alkaline phosphatase. 8. History of atrial fibrillation, paroxysmal. 9. History of degenerative joint disease. 10.History of pulmonary embolus. 11.History of atrial ablation with rapid ventricular rate. 12.History of pancreatitis multiple times. 13.History of ethanol abuse. 14.History of right renal carcinoma; had surgery recently from elsewhere. 15.History of right lung pneumonia; had a chest tube inserted previously. 16.History of polyps. 17.History of bariatric surgery. 18.History of bowel resection. 19.History of cholecystectomy. 20.History of nicotine dependence. 21.Obesity with body mass index of 34.3. 22.Gait dysfunction. 23.Weakness. RECOMMENDATIONS AND DISCUSSION: In this 69-year-old gentleman who presented with multiple complex medical issues, we will monitor the patient closely, continue the current medications, continue with symptomatic treatment. Otherwise, we will obtain PT/OT evaluation, increase ambulation, continue the rest of the medications. Prognosis guarded because of multiple complex medical issues. Further recommendations to follow. DVT prophylaxis. The patient is also on apixaban. Further recommendations to follow. MMODL / IJN: [id number] / PADMINI
[2019-06-06 18:15] LABS: T4, Free (Free Thyroxine) 1.44 ng/dL (0.78-2.19)
[2019-06-06 19:26] LABS: Ferritin 101.5 ng/mL (22.0-322.0)
[2019-06-06 19:27] LABS: Iron Saturation 43.56 (15.00-50.00)
[2019-06-07 06:12] LABS: Anisocytosis Slight; Basophils % (A) 0 %; Eosinophils % (A) 0 %; HCT 27.5 % (39.0-53.0); HGB 8.8 gm/dL (13.0-17.5); Hypochromasia Slight; Lymphocytes # (A) 0.6 k/uL (1.0-4.8); Lymphocytes % (A) 7 %; MCH 32.6 pg (25.0-35.0); MCHC 32.1 g/dL (31.0-37.0); MCV 101.4 fL (80.0-100.0); Macrocytosis Moderate; Monocytes # (A) 0.4 k/uL (0-1.0); Monocytes % (A) 4 %; Neutrophils # (A) 8.4 k/uL (1.3-7.7); Neutrophils % (A) 88 %; Platelet Count 275 k/uL (150-450); RBC 2.71 m/uL (4.30-5.90); RDW 18.7 % (11.5-15.5); WBC 9.6 k/uL (3.8-10.6)
[2019-06-07 06:26] LABS: Calcium 8.3 mg/dL (8.4-10.2); Magnesium 1.8 mg/dL (1.6-2.3); Potassium 3.2 mmol/L (3.5-5.1)
[2019-06-07] MEDS: PANTOPRAZOLE 40 MG TABLET PO SCH (06:31)
[2019-06-07] MEDS: MIDODRINE 5 MG TAB PO SCH ×2 (06:31→12:30)
[2019-06-07] MEDS: POTASSIUM CHLORIDE ER 10 MEQ TAB.ER.PRT PO SCH (08:50)
[2019-06-07] MEDS: FLUDROCORTISONE 0.1 MG TAB PO SCH (08:50)
[2019-06-07] MEDS: POTASSIUM CHLORIDE ER 20 MEQ TAB.ER PO SCH ×2 (08:50→09:50)
[2019-06-07] MEDS: METOPROLOL TARTRATE 12.5 MG TAB PO SCH (08:50)
[2019-06-07] MEDS: APIXABAN 5 MG TAB PO SCH (08:50)
[2019-06-07] MEDS: ALLOPURINOL 300 MG TAB PO SCH (08:50)
[2019-06-07] MEDS: MAGNESIUM OXIDE 400 MG TAB PO SCH (08:51)
[2019-06-07] MEDS: FUROSEMIDE 40 MG TAB PO SCH (08:51)
[2019-06-07] MEDS: CHOLECALCIFEROL 1,000 UNIT TAB PO SCH (08:51)
[2019-06-07] MEDS: MAGNESIUM SULFATE-D5W PMX 1 GM in DEXTROSE/WATER 1 100ML.BAG IVPB SCH ×2 (08:51→09:51)
[2019-06-07] MEDS: HYDROCORTISONE SUCCINATE 100 MG/2 ML VIAL IV SCH ×2 (08:51→16:04)
[2019-06-07] MEDS: MULTIVITAMINS, THERA 1 EACH TAB PO SCH (08:52)
--- NOTE | 2019-06-07 11:59 | P.PN ---
Subjective Patient is seen in follow-up for acute kidney injury. Renal function is improving. Creatinine 1.21 today. Does have swelling in his lower extremities. Urine output has improved with Lasix. Still feels dizzy when he first gets up. Denies any falls or syncopal episodes. Vital signs are stable. General: The patient appeared well nourished and normally developed. HEENT: Head exam is unremarkable. Neck is without jugular venous distension. LUNGS: Lungs are clear to auscultation and percussion. Breath sounds decreased. HEART: Rate and Rhythm are regular. First and second heart sounds normal. No murmurs, rubs or gallops. ABDOMEN: Abdominal exam reveals normal bowel sounds. Non-tender and non- distended. No evidence of peritonitis. EXTREMITITES: 1+ edema. Objective - Vital Signs Vital signs: Vital Signs Temp 97.3 F L 06/07/19 08:10 Pulse 75 06/07/19 08:10 Resp 18 06/07/19 08:10 BP 90/52 06/07/19 08:10 Pulse Ox 94 L 06/07/19 08:10 Intake & Output 06/06/19 06/07/19 06/07/19 18:59 06:59 18:59 Intake Total 600 100 320 Output Total 1105 280 Balance -505 -180 320 Weight 109.9 kg Intake: Intake, IV Titration 200 Amount Magnesium Sulfate-D5w Pmx 200 1 gm In Dextrose/Water 1 100ml.bag @ 100 mls/hr IVPB Q1H [facility] Rx#: [id number] Oral 600 100 120 Output: Urine 1105 280 Other: Voiding Method Urinal # Voids 1 1 - Labs CBC & Chem 7: 06/07/19 05:54 06/07/19 05:54 Labs: Abnormal Lab Results - Last 24 Hours (Table) 06/02/19 06/06/19 06/07/19 Range/Units 09:04 06:00 05:54 RBC 2.71 L (4.30-5.90) m/uL Hgb 8.8 L (13.0-17.5) gm/dL Hct 27.5 L (39.0-53.0) % MCV 101.4 H (80.0-100.0) fL RDW 18.7 H (11.5-15.5) % Neutrophils # 8.4 H (1.3-7.7) k/uL Lymphocytes # 0.6 L (1.0-4.8) k/uL Potassium (3.5-5.1) mmol/L BUN (9-20) mg/dL Glucose (74-99) mg/dL Calcium (8.4-10.2) mg/dL TIBC 163 L (228-460) ug/dL TSH 5.590 H (0.465-4.680) mIU/L 06/07/19 Range/Units 05:54 RBC (4.30-5.90) m/uL Hgb (13.0-17.5) gm/dL Hct (39.0-53.0) % MCV (80.0-100.0) fL RDW (11.5-15.5) % Neutrophils # (1.3-7.7) k/uL Lymphocytes # (1.0-4.8) k/uL Potassium 3.2 L (3.5-5.1) mmol/L BUN 35 H (9-20) mg/dL Glucose 115 H (74-99) mg/dL Calcium 8.3 L (8.4-10.2) mg/dL TIBC (228-460) ug/dL TSH (0.465-4.680) mIU/L Assessment and Plan Plan: Assessment: 1. Acute kidney injury mostly prerenal secondary to hypotension. Improving. Creatinine 1.21 today. UA benign. Baseline creatinine near 1. 2. Hypotension. ?Secondary adrenal insufficiency. Currently on Solu-Cortef, Florinef and midodrine. Will need to follow-up with endocrinology outpatient. 3. Lower extremity edema. 4. Hypokalemia secondary to diuresis and Florinef. Plan: Lasix 40 mg once daily. Replace potassium. 40 mEq today. Continue maintenance potassium supplementation.
--- NOTE | 2019-06-07 12:09 | CDI ---
Documentation Clarification Form Date: 06/07/19 1204 CDS: Karen Alford RN, CCDS Admit Date: [id number] Patient Name: Martin Curtis Dr. Coleman Patient was admitted with AKASH with ATN secondary to hypotension possibly secondary to acute adrenocortical insufficiency. History/Risk Factors: atrial Fib, DJD, hx of pe, Clinical Indicators: 06/05 Nephrology Progress Note: "Restrict the use of pantoprazole to a few weeks only as his related to chronic kidney disease in the more recent literature." Current BUN: ////////35 CR: 1.8/1.6/1.26/1.17/1.3/1.28/1.44/1.66/1.37/1.21 GFR: 38/44/58/64/56/57/50/42/53/61 / Patients Baseline BUN/CR/GFR: 27/1.2/61.8 Treatment: IVF: 0.9% NS @ 50 cc/hr. 05/29 until 05/30 Florinef .2mg PO QD In order to capture the severity of condition, please clarify if the condition signifies: CKD Stage 1 (GFR > 90) CKD Stage 2 (GFR 60-89) CKD Stage 3 (GFR 30-59) CKD Stage 4 (GFR 15-29) CKD Stage 5 (GFR <15) ESRD Other, please specify Unable to determine (Last Revision: December 2017) ckd-3 MTDD
[2019-06-07] MEDS: THIAMINE 100 MG TAB PO SCH (12:30)
[2019-06-07] MEDS: FOLIC ACID 1 MG TAB PO SCH (12:30)
--- NOTE | 2019-06-07 15:38 | P.DS ---
Providers Date of admission: 05/30/19 11:03 Expected date of discharge: 06/07/19 Attending physician: Kleber Santos MD Consults: 05/29/19 20:38 Consult Physician Routine Consulting Provider: Víctor Gil Consult Reason/Comments: afib Do you want consulting provider notified?: Yes 05/29/19 20:39 Consult Physician Routine Consulting Provider: Shaheen Coleman Consult Reason/Comments: arf Do you want consulting provider notified?: Yes Primary care physician: Rebekah Hood Hospital Course: Final diagnosis Acute renal failure, possibly secondary to prerenal acute failure with acute tubular necrosis with dehydration, present on admission Relative hypotension, hostilely multiple factors, including prerenal factors and the possibility of acute adrenal cortical insufficiency Tachycardia, possibly postural Hypokalemia Hypomagnesemia Anemia, microcytic, possible nutrition in nature History of degenerative joint disease History of atrial fibrillation, paroxysmal Increased alkaline phosphatase History of pulmonary embolus History of atrial ablation with rapid ventricular rate History pancreatitis multiple times History of ethanol abuse History of right renal carcinoma History of right lung pneumonia History of polyps history of bariatric surgery history of bowel resection History of cholecystectomy History of nicotine dependence Obesity with a body mass index of 34.3 Gait dysfunction Weakness Discharge disposition Patient being discharged in a stable condition with guarded prognosis to [facility] for continued rehabilitation. Patient will continue to work with PT/OT for strengthening mobility. Patient is to follow-up with nephrology upon discharge from the rehab facility as well as his primary care provider Dr. Hood upon discharge. Total time taken 35 minutes. History of present illness This is a 69-year-old male who was admitted for dizziness and hypotension and also possible adrenocortical insufficiency and is being closely monitored. Patient also had acute renal failure and nephrology was following closely. PT/OT was working with the patient during hospitalization due to his continued weakness and unsteady gait. PT recommendations suggest patient may benefit from subacute rehab for continued strength and mobility. Patient will continue on steroids upon discharge in the form of Cortef 25 mg in the a.m. and 15 mg in the p.m. and may titrate as necessary in the outpatient setting. Patient's potassium today was slightly low at 3.2 and was replaced. Current potassium is 3.6. Patient will need repeat labs in 2-3 days. Patient denies any chest pain, shortness of breath, or palpitations at this time. Patient denies any nausea or vomiting and is been tolerating diet. Patient has remained afebrile. Patient states that his dizziness with position changes has slightly improved but continues to be present attempting to get up too fast changed positions to. Discussed with the patient about getting up slowly and sitting at the side of the bed and waiting at least 1-2 minutes and then getting up with a walker to the chair, etc. patient verbalized understanding. Currently patient's condition is stable with much improvement and patient would like to go to [facility] today. On exam vital signs are stable. Blood pressure is 98/57, pulse is 60, respirations are 18, oxygen saturation is 96% on room air, temp is 96.3F. Cardio S1 and S2 are muffled. Respiratory system shows diminished breath sounds at the bases otherwise clear upon auscultation. Abdomen is soft, obese, nontender. Nervous system shows no focal deficits with mild diffuse weakness. Please refer to medication reconciliation sheet for a list of medications. Patient Condition at Discharge: Stable Plan - Discharge Summary Discharge Rx Participant: No New Discharge Prescriptions: New Fludrocortisone [Florinef] 0.2 mg PO DAILY tab Folic Acid 1 mg PO DAILY@1200 tab Furosemide [Lasix] 40 mg PO DAILY tab Metoprolol Tartrate [Lopressor] 12.5 mg PO BID tab Magnesium Oxide [Mag-Ox] 400 mg PO BID tab HYDROcodone/APAP 7.5-325MG [Windsor 7.5-325] 1 each PO Q8HR PRN #6 tab PRN Reason: Pain Midodrine [ProAmatine] 15 mg PO AC-TID tab Temazepam [Restoril] 15 mg PO HS PRN #3 cap PRN Reason: Insomnia Thiamine [Vitamin B-1] 100 mg PO DAILY@1200 tab ALPRAZolam [Xanax] 0.25 mg PO TID PRN #3 tab PRN Reason: Anxiety Continue Allopurinol [Zyloprim] 300 mg PO DAILY Cholecalciferol [Vitamin D3 (25 Mcg = 1000 Iu)] 5,000 unit PO DAILY Multivitamin [Men's Multi-Vitamin] 1 tab PO DAILY #30 Apixaban [Eliquis] 5 mg PO BID #0 Pantoprazole Sodium [Protonix] 40 mg PO BID #60 tablet. Potassium Chloride [K-Tab ER] 10 meq PO DAILY #14 tablet.er Discontinued Metoprolol Tartrate [Lopressor] 25 mg PO BID Furosemide [Lasix] 40 mg PO BID Hydrocodone/Acetaminophen [Windsor 7.5-325] 1 tab PO Q8HR PRN PRN Reason: Pain Discharge Medication List Allopurinol [Zyloprim] 300 mg PO DAILY 02/22/14 [History] Cholecalciferol [Vitamin D3 (25 Mcg = 1000 Iu)] 5,000 unit PO DAILY 07/26/14 [History] Multivitamin [Men's Multi-Vitamin] 1 tab PO DAILY #30 07/01/17 [Rx] Apixaban [Eliquis] 5 mg PO BID #0 06/28/18 [Rx] Pantoprazole Sodium [Protonix] 40 mg PO BID #60 tablet.dr 06/28/18 [Rx] Potassium Chloride [K-Tab ER] 10 meq PO DAILY #14 tablet.er 11/29/18 [Rx] ALPRAZolam [Xanax] 0.25 mg PO TID PRN #3 tab 06/07/19 [Rx] Fludrocortisone [Florinef] 0.2 mg PO DAILY tab 06/07/19 [Rx] Folic Acid 1 mg PO DAILY@1200 tab 06/07/19 [Rx] Furosemide [Lasix] 40 mg PO DAILY tab 06/07/19 [Rx] HYDROcodone/APAP 7.5-325MG [Windsor 7.5-325] 1 each PO Q8HR PRN #6 tab 06/07/19 [Rx] Magnesium Oxide [Mag-Ox] 400 mg PO BID tab 06/07/19 [Rx] Metoprolol Tartrate [Lopressor] 12.5 mg PO BID tab 06/07/19 [Rx] Midodrine [ProAmatine] 15 mg PO AC-TID tab 06/07/19 [Rx] Temazepam [Restoril] 15 mg PO HS PRN #3 cap 06/07/19 [Rx] Thiamine [Vitamin B-1] 100 mg PO DAILY@1200 tab 06/07/19 [Rx] Follow up Appointment(s)/Referral(s): Nawaf Diaz DO [Doctor of Osteopathic Medicine] - 06/10/19 8:00 am () Rebekah Hood DO [Primary Care Provider] - 1-2 days Ambulatory/Diagnostic Orders: Basic Metabolic Panel [LAB.AMB] Time Frame: 2 Days, Location: None Selected Complete Blood Count w/diff [LAB.AMB] Time Frame: 2 Days, Location: None Selected Patient Instructions/Handouts: Hypomagnesemia (ED) Activity/Diet/Wound Care/Special Instructions: Patient will be going to [facility] on the [place] Activity as tolerated Continue current diet Follow-up with primary care provider this week Repeat labs in 2-3 days Discharge Disposition: TRANSFER TO SNF/ECF
[2019-06-07 16:27] VITALS: BP 106/63; PULSE 52; RESP 17; TEMP 98
== END 2019-06-07 17:00 | DRG 682 ==
LOC: EC 12:35 → 3NMEDONC 15:52 → OBSVTOIN 05-30 11:03 → 3NMEDONC 06-01 17:44 → 3SCARD 06-01 18:52
PROVIDERS: ADMIT Internal Medicine; ATTEND Internal Medicine
DX: N17.0 Acute kidney failure with tubular necrosis (principal); I50.33 Acute on chronic diastolic (congestive) heart failure; E27.49 Other adrenocortical insufficiency; E87.2 Acidosis; I47.2 Ventricular tachycardia; J98.11 Atelectasis; E86.0 Dehydration; Z85.528 Personal history of other malignant neoplasm of kidney; D50.9 Iron deficiency anemia, unspecified; D53.9 Nutritional anemia, unspecified; E66.9 Obesity, unspecified; Z68.33 Body mass index [BMI] 33.0-33.9, adult; E83.42 Hypomagnesemia; E87.6 Hypokalemia; E88.09 Other disorders of plasma-protein metabolism, not elsewhere classified; F10.20 Alcohol dependence, uncomplicated; I11.0 Hypertensive heart disease with heart failure; I48.0 Paroxysmal atrial fibrillation; I95.1 Orthostatic hypotension; N28.1 Cyst of kidney, acquired; N40.0 Benign prostatic hyperplasia without lower urinary tract symptoms; T50.2X5A Adverse effect of carbonic-anhydrase inhibitors, benzothiadiazides and other diuretics, initial encounter; N18.3 Chronic kidney disease, stage 3 (moderate); Z79.899 Other long term (current) drug therapy; Z80.3 Family history of malignant neoplasm of breast; Z80.41 Family history of malignant neoplasm of ovary; Z82.49 Family history of ischemic heart disease and other diseases of the circulatory system; Z82.5 Family history of asthma and other chronic lower respiratory diseases; Z86.010 Personal history of colon polyps; Z86.711 Personal history of pulmonary embolism; Z87.891 Personal history of nicotine dependence; Z90.49 Acquired absence of other specified parts of digestive tract; Z93.3 Colostomy status; Z96.652 Presence of left artificial knee joint; Z98.84 Bariatric surgery status; Z79.02 Long term (current) use of antithrombotics/antiplatelets
CPT/HCPCS: 36415; 71045; 71046; 76770; 80048; 80053; 81001; 81003; 82024; 82533; 82728; 83540; 83550; 83735; 83880; 84132; 84145; 84439; 84443; 84484; 85025; 85027; 85379; 85610; 85652; 85730; 86140; 93005; 93308; 96365; 96366; 99285

== ENCOUNTER 2019-07-23 08:00 | Inpatient (IN) | payer MEDICARE, OTHER ==
[2019-07-23] MEDS ORDERED: ACETAMINOPHEN TAB 500 MG TAB PO STA (08:06)
[2019-07-23] MEDS ORDERED: IBUPROFEN 600 MG TAB PO STA (08:06)
[2019-07-23] MEDS ORDERED: PIPERACILLIN-TAZOBACTAM 3.375 GM in SODIUM CHLORIDE 0.9% 100 ML IVPB STA (08:06)
--- NOTE | 2019-07-23 08:33 | ED ---
General Adult HPI - General Stated complaint: MICHAEL Time Seen by Provider: 07/23/19 08:05 Source: patient, EMS, RN notes reviewed, old records reviewed Mode of arrival: EMS Limitations: no limitations - History of Present Illness Initial comments: This is a 69-year-old male who presents emergency Department complaining of a cough and shortness of breath over the last 2 days per patient also states he feels hot and his had the chills. Patient denies any chest pain or palpitatio ns. Patient denies any abdominal pain patient denies nausea vomiting diarrhea. Patient denies any dysuria hematuria urinary frequency. Patient denies headache patient denies numbness weakness. Patient denies any lightheadedness or dizziness. Patient denies any increased edema in his legs though he has edema is not changed. Patient denies any calf tenderness. Patient denies any back pain. Patient denies any recent injury or trauma. Patient states she does have a history of pneumonia congestive heart failure and atrial fibrillation. - Related Data Home Medications Medication Instructions Recorded Confirmed Allopurinol [Zyloprim] 300 mg PO DAILY 02/22/14 07/23/19 Cholecalciferol [Vitamin D3 (25 5,000 unit PO DAILY 07/26/14 07/23/19 Mcg = 1000 Iu)] Hydrocortisone [Cortef] 5 mg PO HS 07/23/19 07/23/19 Hydrocortisone [Cortef] 15 mg PO QAM 07/23/19 07/23/19 Metoprolol Tartrate [Lopressor] 25 mg PO DAILY 07/23/19 07/23/19 Previous Rx's Medication Instructions Recorded Multivitamin [Men's Multi-Vitamin] 1 tab PO DAILY #30 07/01/17 Apixaban [Eliquis] 5 mg PO BID #0 06/28/18 Pantoprazole Sodium [Protonix] 40 mg PO BID #60 tablet.dr 06/28/18 Potassium Chloride [K-Tab ER] 10 meq PO DAILY #14 tablet.er 11/29/18 Furosemide [Lasix] 40 mg PO DAILY tab 06/07/19 Allergies Allergy/AdvReac Type Severity Reaction Status Date / Time No Known Allergies Allergy Verified 07/23/19 09:15 Review of Systems ROS Statement: Those systems with pertinent positive or pertinent negative responses have been documented in the HPI. ROS Other: All systems not noted in ROS Statement are negative. Past Medical History Past Medical History: Atrial Fibrillation, Blood Disorder, Cancer, Osteoarthritis (OA), Pulmonary Embolus (PE) Additional Past Medical History / Comment(s): Afib/RVR, pulmonary embolism L lung, pancreatitis multiple times, ETOH abuse, recent diagnosed with R renal carcinoma with sx, BPH, past R lung pneumo with chest tube, diverticulitis, benign colon polyps, arthritis multiple joints, abdominal hernias. Dizziness fall and right rib fractures 09/15/19, History of Any Multi-Drug Resistant Organisms: None Reported Past Surgical History: Bariatric Surgery, Bowel Resection, Cholecystectomy, Hernia Repair, Joint Replacement Additional Past Surgical History / Comment(s): Recent (2017) r kidney lesion cryoablation at [facility], 2012 bowel resection d/t viscus perf with colostomy later reversed , gastric sleeve converted to darrell-en-Y 08/2014-post op wound infection, paraesphogeal hiat hernia repair, R inguinal and umbilical hernia repairs, colonoscopies, L total knee arthroplasty., Past Anesthesia/Blood Transfusion Reactions: No Reported Reaction Past Psychological History: No Psychological Hx Reported Smoking Status: Former smoker Past Alcohol Use History: None Reported Past Drug Use History: None Reported - Past Family History Father Family Medical History: COPD, Myocardial Infarction (AR) Additional Family Medical History / Comment(s): Father from a AR at the age of 69yrs. Mother Family Medical History: Cancer Additional Family Medical History / Comment(s): Mother from ovarian cancer at the age of 69yrs. Sister(s) Family Medical History: Cancer Additional Family Medical History / Comment(s): at age 74yrs. Had breast cancer and a defibrillator General Exam - General Exam Comments Initial Comments: GENERAL: Patient is well-developed and well-nourished. Patient is nontoxic and well- hydrated and is in mild distress. ENT: Neck is soft and supple. No significant lymphadenopathy is noted. Oropharynx is clear. Moist mucous membranes. Neck has full range of motion without eliciting any pain. EYES: The sclera were anicteric and conjunctiva were pink and moist. Extraocular movements were intact and pupils were equal round and reactive to light. Eyelids were unremarkable. PULMONARY: Unlabored respirations. Good breath sounds bilaterally. No audible rales rhonchi or wheezing was noted. CARDIOVASCULAR: There is a regular rate and rhythm without any murmurs gallops or rubs. ABDOMEN: Soft and nontender with normal bowel sounds. SKIN: Skin is clear with no lesions or rashes and otherwise unremarkable. NEUROLOGIC: Patient is alert and oriented x3. Cranial nerves II through XII are grossly intact. Motor and sensory are also intact. Normal speech, volume and content. Symmetrical smile. MUSCULOSKELETAL: Normal extremities with adequate strength and full range of motion. 2+ edema bilaterally LYMPHATICS: No significant lymphadenopathy is noted PSYCHIATRIC: Normal psychiatric evaluation. Limitations: no limitations Course Vital Signs 07/23/19 07/23/19 07/23/19 08:06 09:11 09:36 Temperature 102.3 F H 101.8 F H Pulse Rate 112 H 115 H Respiratory 20 18 18 Rate Blood Pressure 103/82 112/60 O2 Sat by Pulse 91 L 92 L Oximetry 07/23/19 10:11 Temperature 100.5 F H Pulse Rate Respiratory Rate Blood Pressure O2 Sat by Pulse Oximetry Medical Decision Making - Medical Decision Making EKG shows sinus tachycardia with occasional PVC at 106 bpm NV interval is 178 QRS is 70 QT interval 306 QTC is 406. EKG shows no ST segment elevation or depression. Chest x-ray shows new pleural effusion. No obvious signs of pneumonia are present however patient had high fevers coughs quite a bit coughing up sputum. So patient was placed on antibiotics. I spoke with Dr. Steele he agreed to admit the patient admitted the patient wrote admitting orders. - Lab Data Result diagrams: 07/23/19 08:40 07/23/19 09:10 Lab Results 07/23/19 07/23/19 07/23/19 Range/Units 08:40 08:40 08:40 WBC 7.3 (3.8-10.6) k/uL RBC 2.82 L (4.30-5.90) m/uL Hgb 9.2 L (13.0-17.5) gm/dL Hct 28.5 L (39.0-53.0) % MCV 101.0 H D (80.0-100.0) fL MCH 32.6 (25.0-35.0) pg MCHC 32.2 (31.0-37.0) g/dL RDW 15.0 (11.5-15.5) % Plt Count 159 (150-450) k/uL Neutrophils % (Manual) 90 % Lymphocytes % (Manual) 7 % Monocytes % (Manual) 3 % Neutrophils # (Manual) 6.57 (1.3-7.7) k/uL Lymphocytes # (Manual) 0.51 L (1.0-4.8) k/uL Monocytes # (Manual) 0.22 (0-1.0) k/uL Nucleated RBCs 0 (0-0) /100 WBC Manual Slide Review Performed Hypochromasia Slight Poikilocytosis (manual Present Anisocytosis (manual) Present Macrocytosis Slight Target Cells Present Stomatocytes Present PT (9.0-12.0) sec INR (<1.2) APTT (22.0-30.0) sec Sodium (137-145) mmol/L Potassium (3.5-5.1) mmol/L Chloride (98-107) mmol/L Carbon Dioxide (22-30) mmol/L Anion Gap mmol/L BUN (9-20) mg/dL Creatinine (0.66-1.25) mg/dL Est GFR (CKD-EPI)AfAm (>60 ml/min/1.73 sqM) Est GFR (CKD-EPI)NonAf (>60 ml/min/1.73 sqM) Glucose (74-99) mg/dL Plasma Lactic Acid Sung 2.7 H* (0.7-2.0) mmol/L Calcium (8.4-10.2) mg/dL Total Bilirubin (0.2-1.3) mg/dL AST (17-59) U/L ALT (21-72) U/L Alkaline Phosphatase (38-126) U/L Troponin I (0.000-0.034) ng/mL Total Protein (6.3-8.2) g/dL Albumin (3.5-5.0) g/dL Influenza Type A RNA Not Detected (Not Detectd) Influenza Type B (PCR) Not Detected (Not Detectd) 07/23/19 07/23/19 07/23/19 Range/Units 09:10 09:10 09:10 WBC (3.8-10.6) k/uL RBC (4.30-5.90) m/uL Hgb (13.0-17.5) gm/dL Hct (39.0-53.0) % MCV (80.0-100.0) fL MCH (25.0-35.0) pg MCHC (31.0-37.0) g/dL RDW (11.5-15.5) % Plt Count (150-450) k/uL Neutrophils % (Manual) % Lymphocytes % (Manual) % Monocytes % (Manual) % Neutrophils # (Manual) (1.3-7.7) k/uL Lymphocytes # (Manual) (1.0-4.8) k/uL Monocytes # (Manual) (0-1.0) k/uL Nucleated RBCs (0-0) /100 WBC Manual Slide Review Hypochromasia Poikilocytosis (manual Anisocytosis (manual) Macrocytosis Target Cells Stomatocytes PT 13.4 H (9.0-12.0) sec INR 1.3 H (<1.2) APTT 30.7 H (22.0-30.0) sec Sodium 139 (137-145) mmol/L Potassium 3.1 L (3.5-5.1) mmol/L Chloride 105 (98-107) mmol/L Carbon Dioxide 29 (22-30) mmol/L Anion Gap 5 mmol/L BUN 14 (9-20) mg/dL Creatinine 1.06 (0.66-1.25) mg/dL Est GFR (CKD-EPI)AfAm 84 (>60 ml/min/1.73 sqM) Est GFR (CKD-EPI)NonAf 72 (>60 ml/min/1.73 sqM) Glucose 74 (74-99) mg/dL Plasma Lactic Acid Sung (0.7-2.0) mmol/L Calcium 7.4 L (8.4-10.2) mg/dL Total Bilirubin 0.9 (0.2-1.3) mg/dL AST 48 (17-59) U/L ALT 41 (21-72) U/L Alkaline Phosphatase 269 H (38-126) U/L Troponin I 0.017 (0.000-0.034) ng/mL Total Protein 4.4 L (6.3-8.2) g/dL Albumin 1.9 L (3.5-5.0) g/dL Influenza Type A RNA (Not Detectd) Influenza Type B (PCR) (Not Detectd) Disposition Clinical Impression: Pleural effusion, Acute bronchitis, Dyspnea Disposition: ADMITTED IP TO THIS HOSP Referrals: Rebekah Hood DO [Primary Care Provider] - 1-2 days Time of Disposition: 10:15
[2019-07-23] MEDS: SODIUM CHLORIDE 0.9% 500 ML 500 ML IV SCH ×3 (08:48→09:59)
[2019-07-23 09:09] LABS: HCT 28.5 % (39.0-53.0); HGB 9.2 gm/dL (13.0-17.5); Hypochromasia Slight; MCH 32.6 pg (25.0-35.0); MCHC 32.2 g/dL (31.0-37.0); Macrocytosis Slight; Mean Platelet Volume 9.4; Platelet Count 159 k/uL (150-450); RBC 2.82 m/uL (4.30-5.90); WBC 7.3 k/uL (3.8-10.6)
--- NOTE | 2019-07-23 09:22 | XR ---
EXAMINATION TYPE: XR chest 2V DATE OF EXAM: 07/23/2019 HISTORY: Fever. REFERENCE: Previous study dated 06/02/2019. FINDINGS: The heart is enlarged. There is bibasilar airspace disease, essentially unchanged from prev ious. There are small, bilateral effusions. There is vascular congestion and subtle interstitial nova ge. IMPRESSION: 1. SUBTLE FINDINGS OF HEART FAILURE. 2. BIBASILAR AIRSPACE DISEASE. 3. CARDIOMEGALY. 4. SMALL, BILATERAL EFFUSIONS.
[2019-07-23 09:32] LABS: Anisocytosis (M) Present; Lymphocytes # (M) 0.51 k/uL (1.0-4.8); Monocytes # (M) 0.22 k/uL (0-1.0); Neutrophils % (M) 90 %; Nucleated Red Blood Cells 0 /100 WBC (0-0); Poikilocytosis (M) Present; Stomatocytes Present; Target Cells Present; Total Cells Counted 100
[2019-07-23 09:35] LABS: INR 1.3 (<1.2); Partial Thromboplastin Time 30.7 sec (22.0-30.0); Prothrombin Time 13.4 sec (9.0-12.0)
[2019-07-23 09:37] LABS: Albumin 1.9 g/dL (3.5-5.0); Calcium 7.4 mg/dL (8.4-10.2); Potassium 3.1 mmol/L (3.5-5.1); Total Bilirubin 0.9 mg/dL (0.2-1.3); Total Protein 4.4 g/dL (6.3-8.2)
[2019-07-23] MEDS ORDERED: PNEUMONIA PROTOCOL UTILIZED 1 EACH MISC PO PRN (10:17)
[2019-07-23] MEDS ORDERED: SODIUM CHLORIDE 0.9% 500 ML 500 ML IV ONE (10:31)
[2019-07-23] MEDS ORDERED: ALBUTEROL NEBULIZED 2.5 MG/3 ML INHALATION SCH (12:00)
[2019-07-23] MEDS ORDERED: Potassium Replacement Protocol 1 EACH MISC MISCELLANE PRN ×2 (12:21→18:09)
[2019-07-23] MEDS ORDERED: IPRATROPIUM-ALBUTEROL 3 ML NEB INHALATION PRN (12:30)
[2019-07-23] MEDS: POTASSIUM CHLORIDE ER 20 MEQ TAB.ER PO SCH ×4 (12:32→20:37)
[2019-07-23] MEDS: PIPERACILLIN-TAZOBACTAM 3.375 GM in SODIUM CHLORIDE 0.9% 100 ML IVPB SCH ×2 (12:33→20:37)
[2019-07-23] MEDS: IPRATROPIUM-ALBUTEROL 3 ML NEB INHALATION SCH ×2 (13:52→19:35)
[2019-07-23] MEDS: PANTOPRAZOLE 40 MG TABLET PO SCH ×2 (13:56→17:53)
[2019-07-23] MEDS: POTASSIUM CHLORIDE ER 10 MEQ TAB.ER.PRT PO SCH (13:56)
[2019-07-23] MEDS: HYDROCORTISONE SUCCINATE 100 MG/2 ML VIAL IV SCH ×2 (13:56→20:37)
[2019-07-23] MEDS: MULTIVITAMINS, THERA 1 EACH TAB PO SCH (13:56)
[2019-07-23] MEDS: HYDROcodone/APAP 7.5-325MG 1 EACH TAB PO PRN (14:27)
[2019-07-23 16:38] LABS: Appearance,Urine Clear (Clear); Bacteria,Urine Many /hpf; Bilirubin,Urine Negative (Negative); Blood,Urine Trace (Negative); Color,Urine Yellow; Glucose,Urine (UA) Negative (Negative); Hyaline Casts,Urine 4 /lpf (0-2); Ketones,Urine Negative (Negative); Leukocyte Esterase,Urine Large (Negative); Mucus,Urine Rare /hpf; Nitrite,Urine Positive (Negative); PH, Urine 5.5 (5.0-8.0); Protein,Urine Trace (Negative); RBC,Urine 8 /hpf (0-5); Specific Gravity,Urine 1.025 (1.001-1.035); Squamous Epithelial Cell,Urine <1 /hpf (0-4)
--- NOTE | 2019-07-23 19:17 | HP ---
HISTORY AND PHYSICAL CHIEF COMPLAINT: Weakness shortness of breath, cough, fever. HISTORY OF PRESENT ILLNESS: This 69-year-old gentleman with a past medical history of multiple medical problems including history of atrial fibrillation, history of DJD, history of paroxysmal atrial fibrillation, history of EtOH abuse, history of pancreatitis, multiple bariatric surgery being followed by Dr. Hood in the outpatient setting, was recently admitted with acute renal failure possibly secondary from prerenal acute tubular necrosis as well relative hypotension thought to be due to acute adrenocortical insufficiency. Patient treated symptomatically. Patient was discharged to [facility] and currently patient just returned home from apparently from the [facility]. The patient is complaining of shortness of breath, cough and chills, rigors, and fever for the last 2 days and the patient came to [facility]. Patient had features of sepsis and possibility of pneumonia with sepsis suspected. Patient admitted to the hospital for further evaluation and treatment. There is no history of fever, rigors or chills. No history of headache, loss of consciousness, seizures. Patient also has some mild redness of both legs also suggestive of shows some cellulitis also. PAST MEDICAL HISTORY: History of atrial fibrillation, history of DJD, history of pulmonary embolism, history of pancreatitis, ETOH, right renal carcinoma, bariatric surgery. MEDICATIONS: Home medications are: 1. K-Tab ER 10 mEq p.o. daily. 2. Protonix 40 mg p.o. b.i.d. 3. Multivitamins one p.o. daily. 4. Lopressor 25 mg p.o. daily. 5. Cortef 5 mg p.o. q.h.s., 15 mg q.a.m. 6. Lasix 40 mg p.o. daily. 7. Vitamin D3 5000 daily. 8. Eliquis 5 mg p.o. b.i.d. 9. Zyloprim 300 mg p.o. daily. ALLERGIES: None. FAMILY HISTORY: History of ovarian cancer in mother. SOCIAL HISTORY: History of occasional alcohol intake. Previous history of smoking. REVIEW OF SYSTEMS: ENT: Diminished vision. Diminished hearing. CARDIOVASCULAR system as mentioned earlier. RESPIRATORY: As mentioned earlier. GASTROINTESTINAL: As mentioned earlier. no dysuria or hematuria. NERVOUS SYSTEM: As mentioned earlier. ALLERGY/IMMUNOLOGY: No asthma or hayfever. MUSCULOSKELETAL as mentioned earlier. HEMATOLOGY/ONCOLOGY: As mentioned earlier. ENDOCRINE: No history of diabetes or hypothyroidism. CONSTITUTIONAL: As mentioned earlier. DERMATOLOGY negative. RHEUMATOLOGY as mentioned earlier. PSYCHIATRY as mentioned earlier. PHYSICAL EXAMINATION: Alert and oriented x3. The pulse is 92. Blood pressure 101/65, respiration 16, temperature 98.4, pulse ox 97% on 2 L. HEENT: Conjunctivae normal. Oral mucosa moist. NECK is no jugular venous distention. No carotid bruit. No lymph node enlargement. CARDIOVASCULAR system: S1, S2 muffled. No S3, no S4. RESPIRATORY: Breath sounds diminished in the bases. A few scattered rhonchi. No crackles. ABDOMEN: Soft, obese, nontender. No mass palpable. LEGS: No edema. No swelling. NERVOUS SYSTEM: Higher functions as mentioned earlier. Moves all 4 limbs. No focal motor or sensory deficits. LYMPHATICS: No lymph nodes palpable in the neck, axillae or groin. SKIN: No ulcer. No rashes. No bleeding. JOINTS: No active deforming arthropathy. LABS: At this time shows WBC 7.3, hemoglobin 9.2, sodium 139, potassium 3.1 and calcium is 7.4 and alkaline phosphatase 269, albumin is 1.9. ASSESSMENT: 1. Shortness of breath, cough, sputum possibly acute bibasilar pneumonia with sepsis, present on admission. 2. Hypokalemia. 3. Anemia macrocytic, multifactorial. 4. Elevated lactic acid, possibly secondary to sepsis. 5. Hypoalbuminemia with possible chronic liver disease. 6. History of recent acute renal failure. 7. History of recently diagnosed adrenocortical insufficiency. 8. History of bariatric surgery. 9. History of bowel resection. 10.History of right renal kidney lesion cryoablation at [facility]. 11.Gastric sleeve and Bibi-en-Y in 2014. 12.Obesity. 13.Remote history of nicotine dependence. RECOMMENDATIONS AND DISCUSSION: In this 69-year-old gentleman who presented with multiple complex medical issues, we will monitor the patient closely. I recommend initiate broad-spectrum IV antibiotics. Obtain cultures. Follow the septic protocol. We will be careful with IV fluids because of his pulmonary/cardiac comorbidities. Otherwise, I would recommend infectious disease evaluation. Flu is negative. Lactic acid is elevated. I would also recommend continue DVT prophylaxis. Resume the home medications. Medication reconciliation was done. Prognosis guarded because of multiple complex medical issues. Further recommendations to follow. A copy of this dictation being forwarded to Dr. Hood who is the primary physician. We will also obtain PT/OT evaluation also. See orders for details. MMODL / IJN: [id number] / MTDD
[2019-07-23] MEDS: APIXABAN 5 MG TAB PO SCH (20:37)
--- NOTE | 2019-07-23 22:22 | P.CONS ---
History of Present Illness - Reason for Consult Consult date: 07/23/19 - Chief Complaint increasing shortness of breath - History of Present Illness 69-year-old male with a complex past medical history. In 2013 and a gastric sleeve and the role and why performed for his superobesity and has had approximately 100 pound weight loss. He however is gained some fluid weight back as of late. It is noted that he was recently hospitalized at which point in time there was difficulties with adrenal insufficiency, his atrial fibrillation and acute renal failure. The patient improved and was sent to the rehab facility. Apparently just a few days of getting back to his home routine and now he is with increasing shortness of breath cough fever chills inability to get around because presents to the emergency center. There is evidence of changes in his chest x-ray consistent with bibasilar pneumonia as well as potential pleural effusions. He had fever and constantly was admitted and septic workup was begun antibiotic therapy started for pneumonia. He has not the patient has multiple medical troubles which include a history of prior alcohol use with pancreatitis and possible chronic liver disease. He is a chronic rather lower extremity edema but denies current open ulcerations. Review of Systems HEENT:Denies headache or acute visual change. Denies sinus or mouth discomforts. Denies neck stiffness or pain. Denies significant oral cavity pain. Denies difficulty on swallowing. Lungs: Increasing shortness of breath cough is somewhat dry no hemoptysis Cardiovascular: Positive shortness of breath but denies chest pain, he has dyspnea with exertion he has increasing shortness of breath if completely supine does not relate to PND. Poor exercise tolerance. Gastrointestinal:Denies nausea, vomiting, diarrhea, constipation, hematemesis, melena, hematochezia. No no significant change of bowel habit noticed. Musculoskeletal: denies significant myalgias or arthralgias. No new joint swelling. Denies new back pain. Skin: Denies new rash or lesions. No new ulcers or wounds are related.does have chronic lower extremity edema Neuro: Denies headache or visual change. Denies any new onset weakness or dif ficulty with ambulation. Denies falls or seizures. Psychiatric:Denies anxiety or depression. Endocrine: severe fatigue has had some weight gain Past Medical History Past Medical History: Atrial Fibrillation, Blood Disorder, Cancer, Osteoarthritis (OA), Pulmonary Embolus (PE) Additional Past Medical History / Comment(s): Afib/RVR, pulmonary embolism L lung, pancreatitis multiple times, ETOH abuse, was diagnosed with R renal ca rcinoma with cryoablation at [place], past R lung pneumo with chest tube, diverticulitis, benign colon polyps, arthritis multiple joints, abdominal hernias. Dizziness fall and right rib fractures 09/15/18,. Adrenal insufficiently History of Any Multi-Drug Resistant Organisms: None Reported Past Surgical History: Bariatric Surgery, Bowel Resection, Cholecystectomy, Hernia Repair, Joint Replacement Additional Past Surgical History / Comment(s): Recent (2017) r kidney lesion cryoablation at [facility], 2013 bowel resection d/t viscus perf with colostomy later reversed , gastric sleeve converted to darrell-en-Y 08/2014-post op wound infection, paraesphogeal hiat hernia repair, R inguinal and umbilical jonas ia repairs, colonoscopies, L total knee arthroplasty., Past Anesthesia/Blood Transfusion Reactions: No Reported Reaction Past Psychological History: No Psychological Hx Reported Additional Psychological History / Comment(s): Pt resides alone. He is independent. He is retired from [employer]. No ex perience. No travel history. Reformed smoker. History of alcoholism. Denies injection drug use or other recreational drug use. No animals in the home Smoking Status: Former smoker Past Alcohol Use History: None Reported Additional Past Alcohol Use History / Comment(s): SMOKING: FOR 15 YRS, STOPPED, 1987. ETOH: HISTORY OF ABUSE, 6 to 8 mixed drinks per week Past Drug Use History: None Reported - Past Family History Father Family Medical History: COPD, Myocardial Infarction (CA) Additional Family Medical History / Comment(s): Father from a CA at the age of 69yrs. Mother Family Medical History: Cancer Additional Family Medical History / Comment(s): Mother from ovarian cancer at the age of 69yrs. Sister(s) Family Medical History: Cancer Additional Family Medical History / Comment(s): at age 74yrs. Had breast cancer and a defibrillator Medications and Allergies Home Medications and Allergies Comment(s): Laboratory Results WBC 7.3 k/uL (3.8-10.6) 07/23/19 08:40 RBC 2.82 m/uL (4.30-5.90) L 07/23/19 08:40 Hgb 9.2 gm/dL (13.0-17.5) L 07/23/19 08:40 Hct 28.5 % (39.0-53.0) L 07/23/19 08:40 MCV 101.0 fL (80.0-100.0) H D 07/23/19 08:40 MCH 32.6 pg (25.0-35.0) 07/23/19 08:40 MCHC 32.2 g/dL (31.0-37.0) 07/23/19 08:40 RDW 15.0 % (11.5-15.5) 07/23/19 08:40 Plt Count 159 k/uL (150-450) 07/23/19 08:40 Neutrophils % (Manual) 90 % 07/23/19 08:40 Lymphocytes % (Manual) 7 % 07/23/19 08:40 Monocytes % (Manual) 3 % 07/23/19 08:40 Neutrophils # (Manual) 6.57 k/uL (1.3-7.7) 07/23/19 08:40 Lymphocytes # (Manual) 0.51 k/uL (1.0-4.8) L 07/23/19 08:40 Monocytes # (Manual) 0.22 k/uL (0-1.0) 07/23/19 08:40 Nucleated RBCs 0 /100 WBC (0-0) 07/23/19 08:40 Manual Slide Review Performed 07/23/19 08:40 Hypochromasia Slight 07/23/19 08:40 Poikilocytosis (manual Present 07/23/19 08:40 Anisocytosis (manual) Present 07/23/19 08:40 Macrocytosis Slight 07/23/19 08:40 Target Cells Present 07/23/19 08:40 Stomatocytes Present 07/23/19 08:40 PT 13.4 sec (9.0-12.0) H 07/23/19 09:10 INR 1.3 (<1.2) H 07/23/19 09:10 APTT 30.7 sec (22.0-30.0) H 07/23/19 09:10 Sodium 139 mmol/L (137-145) 07/23/19 09:10 Potassium 3.5 mmol/L (3.5-5.1) 07/23/19 17:30 Chloride 105 mmol/L (98-107) 07/23/19 09:10 Carbon Dioxide 29 mmol/L (22-30) 07/23/19 09:10 Anion Gap 5 mmol/L 07/23/19 09:10 BUN 14 mg/dL (9-20) 07/23/19 09:10 Creatinine 1.06 mg/dL (0.66-1.25) 07/23/19 09:10 Est GFR (CKD-EPI)AfAm 84 (>60 ml/min/1.73 sqM) 07/23/19 09:10 Est GFR (CKD-EPI)NonAf 72 (>60 ml/min/1.73 sqM) 07/23/19 09:10 Glucose 74 mg/dL (74-99) 07/23/19 09:10 Lactic Ac Sepsis Rflx Y 07/23/19 09:19 Plasma Lactic Acid Sung 1.0 mmol/L (0.7-2.0) 07/23/19 13:04 Calcium 7.4 mg/dL (8.4-10.2) L 07/23/19 09:10 Total Bilirubin 0.9 mg/dL (0.2-1.3) 07/23/19 09:10 AST 48 U/L (17-59) 07/23/19 09:10 ALT 41 U/L (21-72) 07/23/19 09:10 Alkaline Phosphatase 269 U/L (38-126) H 07/23/19 09:10 Troponin I 0.017 ng/mL (0.000-0.034) 07/23/19 09:10 Total Protein 4.4 g/dL (6.3-8.2) L 07/23/19 09:10 Albumin 1.9 g/dL (3.5-5.0) L 07/23/19 09:10 Urine Color Yellow 07/23/19 16:05 Urine Appearance Clear (Clear) 07/23/19 16:05 Urine pH 5.5 (5.0-8.0) 07/23/19 16:05 Ur Specific [place] 1.025 (1.001-1.035) 07/23/19 16:05 Urine Protein Trace (Negative) H 07/23/19 16:05 Urine Glucose (UA) Negative (Negative) 07/23/19 16:05 Urine Ketones Negative (Negative) 07/23/19 16:05 Urine Blood Trace (Negative) H 07/23/19 16:05 Urine Nitrite Positive (Negative) 07/23/19 16:05 Urine Bilirubin Negative (Negative) 07/23/19 16:05 Urine Urobilinogen 2.0 mg/dL (<2.0) 07/23/19 16:05 Ur Leukocyte Esterase Large (Negative) H 07/23/19 16:05 Urine RBC 8 /hpf (0-5) H 07/23/19 16:05 Urine WBC 36 /hpf (0-5) H 07/23/19 16:05 Ur Squamous Epith Cells <1 /hpf (0-4) 07/23/19 16:05 Urine Bacteria Many /hpf (None) H 07/23/19 16:05 Hyaline Casts 4 /lpf (0-2) H 07/23/19 16:05 Urine Mucus Rare /hpf (None) H 07/23/19 16:05 Influenza Type A RNA Not Detected (Not Detectd) 07/23/19 08:40 Influenza Type B (PCR) Not Detected (Not Detectd) 07/23/19 08:40 Home Medications Medication Instructions Recorded Confirmed Type Allopurinol [Zyloprim] 300 mg PO DAILY 02/22/14 07/23/19 History Cholecalciferol [Vitamin D3 (25 5,000 unit PO DAILY 07/26/14 07/23/19 History Mcg = 1000 Iu)] Multivitamin [Men's Multi-Vitamin] 1 tab PO DAILY #30 07/01/17 07/23/19 Rx Apixaban [Eliquis] 5 mg PO BID #0 06/28/18 07/23/19 Rx Pantoprazole Sodium [Protonix] 40 mg PO BID #60 tablet.dr 06/28/18 07/23/19 Rx Potassium Chloride [K-Tab ER] 10 meq PO DAILY #14 tablet.er 11/29/18 07/23/19 Rx Furosemide [Lasix] 40 mg PO DAILY tab 06/07/19 07/23/19 Rx Hydrocortisone [Cortef] 5 mg PO HS 07/23/19 07/23/19 History Hydrocortisone [Cortef] 15 mg PO QAM 11/02/19 11/02/19 History Metoprolol Tartrate [Lopressor] 25 mg PO DAILY 07/23/19 07/23/19 History Allergies Allergy/AdvReac Type Severity Reaction Status Date / Time No Known Allergies Allergy Verified 07/23/19 09:15 Physical Exam Vitals: Vital Signs Temp Pulse Pulse Resp BP BP Pulse Ox 07/23/19 19:45 85 07/23/19 19:35 85 98 07/23/19 12:28 76 07/23/19 12:18 72 07/23/19 12:15 98.5 F 92 16 101/65 97 07/23/19 11:30 98.2 F 103 H 16 91/54 94 L 07/23/19 11:02 109/64 07/23/19 11:00 18 109/64 07/23/19 10:37 100.5 F H 16 98/61 07/23/19 10:11 100.5 F H 07/23/19 09:36 18 07/23/19 09:11 101.8 F H 115 H 18 112/60 92 L 07/23/19 08:06 102.3 F H 112 H 20 103/82 91 L Intake and Output 07/23/19 07/23/19 07/23/19 06:59 14:59 22:59 Other: # Voids 0 0 # Bowel Movements 0 Weight 115.666 kg 61-year-old male with obesity is mildly short of breath HEENT: Anicteric conjunctiva are pink and moist nasal mucosa grossly intact without significant lesions, there is no thrush.upper denture Neck: The neck is supple without significant lymphadenopathy or thyromegaly. Lungs: There is symmetrical bilateral air entry, there scattered expiratory wheezes, bibasilar crackles with bronchial sounds to the right base no distinct egophony is noted Heart: Irregular with an audible S1 and S2 soft S4 no distinct murmur click or rub PMI is nondisplaced no urethral Abdomen: obese,Positive bowel sounds soft and nontender without palpable masses or organomegaly. There was no guarding or rebound. Extremities: The upper extremities have excellent pulses they are symmetric, no significant petechiae or telangiectasia. No splinter hemorrhages were noted. The lower extremities Have mild edema but no ulcerations are seen. Some chronic venous stasis change with chronic venous engorgement is seen no tenderness to the limbs. Neuro: Awake alert oriented to person place and time. There are no acute new gross focal sensory motor deficits. Results CBC & Chem 7: 07/23/19 08:40 07/23/19 17:30 Labs: Abnormal Lab Results - Last 24 Hours (Table) 07/23/19 07/23/19 07/23/19 Range/Units 08:40 08:40 09:10 RBC 2.82 L (4.30-5.90) m/uL Hgb 9.2 L (13.0-17.5) gm/dL Hct 28.5 L (39.0-53.0) % MCV 101.0 H D (80.0-100.0) fL Lymphocytes # (Manual) 0.51 L (1.0-4.8) k/uL PT 13.4 H (9.0-12.0) sec INR 1.3 H (<1.2) APTT 30.7 H (22.0-30.0) sec Potassium (3.5-5.1) mmol/L Plasma Lactic Acid Sung 2.7 H* (0.7-2.0) mmol/L Calcium (8.4-10.2) mg/dL Alkaline Phosphatase (38-126) U/L Total Protein (6.3-8.2) g/dL Albumin (3.5-5.0) g/dL Urine Protein (Negative) Urine Blood (Negative) Ur Leukocyte Esterase (Negative) Urine RBC (0-5) /hpf Urine WBC (0-5) /hpf Urine Bacteria (None) /hpf Hyaline Casts (0-2) /lpf Urine Mucus (None) /hpf 07/23/19 07/23/19 Range/Units 09:10 16:05 RBC (4.30-5.90) m/uL Hgb (13.0-17.5) gm/dL Hct (39.0-53.0) % MCV (80.0-100.0) fL Lymphocytes # (Manual) (1.0-4.8) k/uL PT (9.0-12.0) sec INR (<1.2) APTT (22.0-30.0) sec Potassium 3.1 L (3.5-5.1) mmol/L Plasma Lactic Acid Sung (0.7-2.0) mmol/L Calcium 7.4 L (8.4-10.2) mg/dL Alkaline Phosphatase 269 H (38-126) U/L Total Protein 4.4 L (6.3-8.2) g/dL Albumin 1.9 L (3.5-5.0) g/dL Urine Protein Trace H (Negative) Urine Blood Trace H (Negative) Ur Leukocyte Esterase Large H (Negative) Urine RBC 8 H (0-5) /hpf Urine WBC 36 H (0-5) /hpf Urine Bacteria Many H (None) /hpf Hyaline Casts 4 H (0-2) /lpf Urine Mucus Rare H (None) /hpf Laboratory Results WBC 7.3 k/uL (3.8-10.6) 07/23/19 08:40 RBC 2.82 m/uL (4.30-5.90) L 07/23/19 08:40 Hgb 9.2 gm/dL (13.0-17.5) L 07/23/19 08:40 Hct 28.5 % (39.0-53.0) L 07/23/19 08:40 MCV 101.0 fL (80.0-100.0) H D 07/23/19 08:40 MCH 32.6 pg (25.0-35.0) 07/23/19 08:40 MCHC 32.2 g/dL (31.0-37.0) 07/23/19 08:40 RDW 15.0 % (11.5-15.5) 07/23/19 08:40 Plt Count 159 k/uL (150-450) 07/23/19 08:40 Neutrophils % (Manual) 90 % 07/23/19 08:40 Lymphocytes % (Manual) 7 % 07/23/19 08:40 Monocytes % (Manual) 3 % 07/23/19 08:40 Neutrophils # (Manual) 6.57 k/uL (1.3-7.7) 07/23/19 08:40 Lymphocytes # (Manual) 0.51 k/uL (1.0-4.8) L 07/23/19 08:40 Monocytes # (Manual) 0.22 k/uL (0-1.0) 07/23/19 08:40 Nucleated RBCs 0 /100 WBC (0-0) 07/23/19 08:40 Manual Slide Review Performed 07/23/19 08:40 Hypochromasia Slight 07/23/19 08:40 Poikilocytosis (manual Present 07/23/19 08:40 Anisocytosis (manual) Present 07/23/19 08:40 Macrocytosis Slight 07/23/19 08:40 Target Cells Present 07/23/19 08:40 Stomatocytes Present 07/23/19 08:40 PT 13.4 sec (9.0-12.0) H 07/23/19 09:10 INR 1.3 (<1.2) H 07/23/19 09:10 APTT 30.7 sec (22.0-30.0) H 07/23/19 09:10 Sodium 139 mmol/L (137-145) 07/23/19 09:10 Potassium 3.5 mmol/L (3.5-5.1) 07/23/19 17:30 Chloride 105 mmol/L (98-107) 07/23/19 09:10 Carbon Dioxide 29 mmol/L (22-30) 07/23/19 09:10 Anion Gap 5 mmol/L 07/23/19 09:10 BUN 14 mg/dL (9-20) 07/23/19 09:10 Creatinine 1.06 mg/dL (0.66-1.25) 07/23/19 09:10 Est GFR (CKD-EPI)AfAm 84 (>60 ml/min/1.73 sqM) 07/23/19 09:10 Est GFR (CKD-EPI)NonAf 72 (>60 ml/min/1.73 sqM) 07/23/19 09:10 Glucose 74 mg/dL (74-99) 07/23/19 09:10 Lactic Ac Sepsis Rflx Y 07/23/19 09:19 Plasma Lactic Acid Sung 1.0 mmol/L (0.7-2.0) 07/23/19 13:04 Calcium 7.4 mg/dL (8.4-10.2) L 07/23/19 09:10 Total Bilirubin 0.9 mg/dL (0.2-1.3) 07/23/19 09:10 AST 48 U/L (17-59) 07/23/19 09:10 ALT 41 U/L (21-72) 07/23/19 09:10 Alkaline Phosphatase 269 U/L (38-126) H 07/23/19 09:10 Troponin I 0.017 ng/mL (0.000-0.034) 07/23/19 09:10 Total Protein 4.4 g/dL (6.3-8.2) L 07/23/19 09:10 Albumin 1.9 g/dL (3.5-5.0) L 07/23/19 09:10 Urine Color Yellow 07/23/19 16:05 Urine Appearance Clear (Clear) 07/23/19 16:05 Urine pH 5.5 (5.0-8.0) 07/23/19 16:05 Ur Specific [place] 1.025 (1.001-1.035) 07/23/19 16:05 Urine Protein Trace (Negative) H 07/23/19 16:05 Urine Glucose (UA) Negative (Negative) 07/23/19 16:05 Urine Ketones Negative (Negative) 07/23/19 16:05 Urine Blood Trace (Negative) H 07/23/19 16:05 Urine Nitrite Positive (Negative) 07/23/19 16:05 Urine Bilirubin Negative (Negative) 07/23/19 16:05 Urine Urobilinogen 2.0 mg/dL (<2.0) 07/23/19 16:05 Ur Leukocyte Esterase Large (Negative) H 07/23/19 16:05 Urine RBC 8 /hpf (0-5) H 07/23/19 16:05 Urine WBC 36 /hpf (0-5) H 07/23/19 16:05 Ur Squamous Epith Cells <1 /hpf (0-4) 07/23/19 16:05 Urine Bacteria Many /hpf (None) H 07/23/19 16:05 Hyaline Casts 4 /lpf (0-2) H 07/23/19 16:05 Urine Mucus Rare /hpf (None) H 07/23/19 16:05 Influenza Type A RNA Not Detected (Not Detectd) 07/23/19 08:40 Influenza Type B (PCR) Not Detected (Not Detectd) 07/23/19 08:40 CT scan - chest: image reviewed (bibasilar effusion with infiltrate right base) Assessment and Plan (1) Healthcare-associated pneumonia Narrative/Plan: 69-year-old male presents to Hospital from home with a several-day history of increasing shortness of breath and increasing difficulties with activities about his home. The day of admission he develops fever and chills and consequently presents to Hospital. Initially the patient was recently hospitalized and then in the rehab facility. Currently been on for a couple of days before the onset of his symptoms and what is concerning to be pneumonia given the abnormal chest x-ray fever and respiratory symptoms. Given that he's been at the rehab facility piperacillin tazobactam and Levaquin will be utilized. Blood cultures are impressive sputum culture is requested we'll also check a urine Legionella antigen given his level of illness. his atrial fibrillation appears to be well controlled, He is not hypotensive and does not appear to be in an acute adrenal crisis situation. Current Visit: Yes Status: Acute Code(s): J18.9 - PNEUMONIA, UNSPECIFIED ORGANISM SNOMED Code(s): 987579694 (2) Pleural effusion Current Visit: Yes Status: Acute Code(s): J90 - PLEURAL EFFUSION, NOT ELSEWHERE CLASSIFIED SNOMED Code(s): 52680693 (3) Fever Current Visit: Yes Status: Acute Code(s): R50.9 - FEVER, UNSPECIFIED SNOMED Code(s): 083282479
[2019-07-24] MEDS: LEVOFLOXACIN 500MG-D5W PMX 500 MG in DEXTROSE/WATER 1 100ML.BAG IVPB SCH ×2 (00:32→23:22)
[2019-07-24] MEDS: HYDROcodone/APAP 7.5-325MG 1 EACH TAB PO PRN ×2 (01:55→21:16)
[2019-07-24] MEDS: PIPERACILLIN-TAZOBACTAM 3.375 GM in SODIUM CHLORIDE 0.9% 100 ML IVPB SCH ×3 (05:04→19:44)
[2019-07-24] MEDS: HYDROCORTISONE SUCCINATE 100 MG/2 ML VIAL IV SCH ×3 (05:04→21:15)
[2019-07-24] MEDS: IPRATROPIUM-ALBUTEROL 3 ML NEB INHALATION SCH ×4 (07:40→19:40)
[2019-07-24 08:01] LABS: INR 1.3 (<1.2); Prothrombin Time 13.5 sec (9.0-12.0)
[2019-07-24 08:11] LABS: Basophils % (A) 0 %; Eosinophils % (A) 0 %; HCT 30.5 % (39.0-53.0); HGB 9.3 gm/dL (13.0-17.5); Hypochromasia Marked; Lymphocytes # (A) 0.7 k/uL (1.0-4.8); Lymphocytes % (A) 8 %; MCH 32.8 pg (25.0-35.0); MCHC 30.7 g/dL (31.0-37.0); Macrocytosis Moderate; Mean Platelet Volume 7.2; Monocytes # (A) 0.2 k/uL (0-1.0); Monocytes % (A) 2 %; Neutrophils % (A) 90 %; Platelet Count 251 k/uL (150-450); RBC 2.85 m/uL (4.30-5.90); RDW 14.8 % (11.5-15.5); WBC 8.9 k/uL (3.8-10.6)
[2019-07-24 08:15] LABS: Potassium 3.6 mmol/L (3.5-5.1)
[2019-07-24] MEDS: POTASSIUM CHLORIDE ER 10 MEQ TAB.ER.PRT PO SCH (08:18)
[2019-07-24] MEDS: MULTIVITAMINS, THERA 1 EACH TAB PO SCH (08:19)
[2019-07-24] MEDS: APIXABAN 5 MG TAB PO SCH ×2 (08:19→21:16)
[2019-07-24] MEDS: ALLOPURINOL 300 MG TAB PO SCH (08:19)
[2019-07-24] MEDS: PANTOPRAZOLE 40 MG TABLET PO SCH ×2 (08:19→17:11)
[2019-07-24] MEDS: CHOLECALCIFEROL 1,000 UNIT TAB PO SCH (08:19)
[2019-07-24 08:28] LABS: MCV 106.7 fL (80.0-100.0)
--- NOTE | 2019-07-24 08:47 | XR ---
EXAMINATION TYPE: XR chest 2V DATE OF EXAM: 07/24/2019 HISTORY: pneumonia. REFERENCE: Previous study dated 07/23/2019. FINDINGS: The heart is enlarged. There is worsening bibasilar infiltrates. There are small, bilateral effusions. There is mild vascular congestion and interstitial change. I could not exclude some super imposed heart failure. IMPRESSION: 1. WORSENING BIBASILAR INFILTRATES WITH ASSOCIATED BILATERAL EFFUSIONS. 2. I COULD NOT EXCLUDE A MILD DEGREE OF HEART FAILURE.
[2019-07-24] MEDS ORDERED: FUROSEMIDE 40 MG TAB PO SCH (09:00)
[2019-07-24] MEDS: FUROSEMIDE 10 MG/ML 4 ML VIAL IV SCH ×2 (11:58→21:16)
--- NOTE | 2019-07-24 20:39 | PN ---
PROGRESS NOTE DATE OF SERVICE: 07/24/2019 This 69-year-old gentleman who was admitted with weakness, shortness of breath and fever had thought to be possibly bibasilar pneumonia. The patient still has shortness of breath at this time. The most recent chest x-ray which was personally reviewed by me showed still bilateral lesions and also left pleural effusion also. Multiple consultants following the patient. Patient on broad spectrum antibiotics. PAST MEDICAL HISTORY: Past medical history reviewed. REVIEW OF SYSTEM: Cardiovascular system: No angina or palpitations. RESPIRATORY: As mentioned earlier. GI no nausea or vomiting. no dysuria. Nervous system: No numbness or weakness. CURRENT MEDICATIONS: Reviewed and include: 1. [place] 7.5 b.i.d. 2. DuoNeb q.i.d. and p.r.n. 3. Zyloprim. 4. Eliquis. 5. Vitamin D. 6. Lasix started today. 7. Solu-Cortef. 8. Levaquin. 9. KCl. 10.Protonix. 11.Zosyn. 12.K-Dur. 13.Restoril. PHYSICAL EXAM: Patient is alert, oriented x3. Pulse 75. Blood pressure 120/75, respiration 20, temperature 97.4, pulse ox 98% on 2 L. HEENT: Conjunctivae normal. Neck: S1, S2 muffled. RESPIRATORY: Breath sounds diminished in the base. A few scattered rhonchi and crackles in the bases. ABDOMEN: Soft, obese. LEGS: Bilateral leg edema. NERVOUS SYSTEM: Higher functions as mentioned earlier. Moves all 4 limbs. No focal motor or sensory deficits. LYMPHATICS: No lymph nodes palpable in the neck, axillae or groin. SKIN no ulcers, no rashes and no bleeding. JOINTS: No active deforming arthropathy. LABS: WBC 8.9, hemoglobin 9.3. INR is 1.3. UA noted. Cultures are at this time pending at this time. ASSESSMENT: 1. Shortness of breath, possibly bibasilar, acute bibasilar pneumonia with sepsis, present on admission. 2. Hypokalemia. 3. Possible congestive heart failure with ejection fraction unknown. 4. Left pleural effusion. 5. Hypokalemia. 6. Anemia, macrocytic, multifactorial. 7. Elevated lactic acid, present on admission secondary to sepsis and hypoalbuminemia possibly chronic liver disease. 8. History of recent acute renal failure. 9. History of recently diagnosed adrenocortical insufficiency. 10.History of bariatric surgery. 11.History of bowel resection. 12.History of right renal kidney lesions, cryoablation at [facility]. 13.Gastric sleeve and Bibi-en-Y in 2014. 14.Obesity. 15.Remote history of nicotine dependence. RECOMMENDATIONS AND DISCUSSION: Recommend to continue current medications, management and symptomatic treatment. Otherwise, I would recommend continue with IV antibiotics. Follow the cultures. Currently the patient is on Zosyn and Levaquin. I would also recommend institute IV Lasix and also order 2D echo. Otherwise, I would also recommend NT proBNP also and set of troponins also. The prognosis is guarded. Further recommendations to follow. Recommendations. MMODL / IJN: [id number] /
[2019-07-24] MEDS: TEMAZEPAM 15 MG CAP PO PRN (21:20)
[2019-07-25] MEDS: PIPERACILLIN-TAZOBACTAM 3.375 GM in SODIUM CHLORIDE 0.9% 100 ML IVPB SCH ×3 (03:59→22:52)
[2019-07-25] MEDS: HYDROCORTISONE SUCCINATE 100 MG/2 ML VIAL IV SCH ×3 (05:25→17:32)
[2019-07-25] MEDS: IPRATROPIUM-ALBUTEROL 3 ML NEB INHALATION SCH ×3 (08:05→19:23)
[2019-07-25] MEDS: PANTOPRAZOLE 40 MG TABLET PO SCH ×2 (08:11→17:31)
[2019-07-25] MEDS: CHOLECALCIFEROL 1,000 UNIT TAB PO SCH (08:11)
[2019-07-25] MEDS: MULTIVITAMINS, THERA 1 EACH TAB PO SCH (08:12)
[2019-07-25] MEDS: ALLOPURINOL 300 MG TAB PO SCH (08:12)
[2019-07-25] MEDS: APIXABAN 5 MG TAB PO SCH ×2 (08:12→22:52)
[2019-07-25] MEDS: FUROSEMIDE 10 MG/ML 4 ML VIAL IV SCH ×2 (08:12→22:52)
[2019-07-25] MEDS: POTASSIUM CHLORIDE ER 10 MEQ TAB.ER.PRT PO SCH (08:12)
[2019-07-25 09:02] LABS: Basophils % (A) 0 %; Eosinophils % (A) 0 %; HCT 28.7 % (39.0-53.0); Hypochromasia Marked; Lymphocytes # (A) 0.6 k/uL (1.0-4.8); Lymphocytes % (A) 9 %; MCH 32.8 pg (25.0-35.0); MCHC 31.2 g/dL (31.0-37.0); Macrocytosis Moderate; Mean Platelet Volume 7.1; Monocytes # (A) 0.1 k/uL (0-1.0); Monocytes % (A) 2 %; Neutrophils # (A) 5.7 k/uL (1.3-7.7); Neutrophils % (A) 88 %; Platelet Count 232 k/uL (150-450); RBC 2.74 m/uL (4.30-5.90); WBC 6.5 k/uL (3.8-10.6)
[2019-07-25 09:06] LABS: INR 1.2 (<1.2); Prothrombin Time 12.6 sec (9.0-12.0)
[2019-07-25 09:13] LABS: Calcium 7.9 mg/dL (8.4-10.2); Potassium 3.1 mmol/L (3.5-5.1)
[2019-07-25] MEDS: HYDROcodone/APAP 7.5-325MG 1 EACH TAB PO PRN ×2 (11:12→22:53)
[2019-07-25] MEDS ORDERED: Potassium Replacement Protocol 1 EACH MISC MISCELLANE PRN (14:20)
--- NOTE | 2019-07-25 14:22 | CDI ---
Documentation Clarification Form Date: 07/25/2019 2:06:13 PM From: Viry Laguerre RN CCDS Admit Date: 07/24/2019 12:45:00 PM Patient Name: Martin Curtis Visit Number: [id number] Discharge Date: ATTENTION: The Clinical Documentation Specialists (CDI) and [facility] Coding Staff appreciate your assistance in clarifying documentation. Please respond to the clarification below the line at the bottom and electronically sign. The CDI & [facility] Coding staff will review the response and follow-up if needed. Please note: Queries are made part of the Legal Health Record. If you have any questions, please contact the author of this message via ITS. Dr. Jamal Steele Conflicting documentation has been found in the medical record: Your Progress Note 07/24/2019 Possibly Acute Bibasilar Pneumonia Infectious Disease Consult 07/23/2019 Healthcare associated pneumonia History/Risk Factors: 69-year-old male presents to the ED via EMS for increasing shortness of breath and chills. Medical history recent hospitalization and then at rehab facility. History of PE Clinical Indicators: CXR 07/23/2019 Heart enlarged bibasilar airspace disease, essentially unchanged from previous. There are small, bilateral effusions. There is vascular congestion and subtle interstitial change. Treatment: 07/23/2019 Levaquin ivpb; Zosyn ivpb In your opinion, what is the most clinically appropriate diagnosis for this patient? * Healthcare Pneumonia poa * Bibasilar Pneumonia poa * Other explanation of clinical findings * Unable to determine (no explanation for clinical findings) (Last Revision: December 2017) Bibasilar Pneumonia poa MTDD
[2019-07-25] MEDS: POTASSIUM CHLORIDE ER 20 MEQ TAB.ER PO SCH ×4 (15:30→22:57)
--- NOTE | 2019-07-25 18:45 | PN ---
PROGRESS NOTE DATE OF SERVICE: 07/25/2019 This 63-year-old gentleman who was admitted with shortness of breath and possible bibasilar pneumonia and sepsis is being closely monitored. The patient also has significant weakness also. PT/OT evaluating the patient. No chest pain. No palpitation. PAST MEDICAL HISTORY: Reviewed. REVIEW OF SYMPTOMS: CARDIOVASCULAR: No angina or palpitations. RESPIRATORY: As mentioned earlier. GI: As mentioned earlier. : No dysuria. CENTRAL NERVOUS SYSTEM: No focal deficits. CURRENT MEDICATIONS: Reviewed and include: 1. [place] 7.5 q.6h p.r.n. 2. DuoNeb q.i.d. 3. Zyloprim. 4. Eliquis. 5. Vitamin D3. 6. Lasix 40 mg IV b.i.d. 7. Solu-Cortef 100 mg q.i.d. 8. Levaquin, replacement protocol. 9. K-Dur. 10.Restoril. 11.Dose reviewed. EXAM: Alert and oriented times three. Pulse is 107, blood pressure 110/60. Respiration 18. temperature 97.6, pulse ox 97% on 2 L. HEENT is conjunctivae normal. NECK: No JVD. CARDIOVASCULAR: S1, S2 muffled. RESPIRATIONS: Breath sounds diminished in the bases. A few scattered rhonchi and crackles. ABDOMEN is soft, obese, nontender. LEGS: Minimal edema. NERVOUS SYSTEM: No focal deficits. LABS: WBC 6.2, hemoglobin 9, potassium 3.1. ASSESSMENT: 1. Shortness of breath, possibly bibasilar acute bibasilar pneumonia with possibly gram-negative with sepsis present on admission. 2. Hypokalemia. 3. Congestive heart failure acute exacerbation with ejection fraction unknown. 4. Left pleural effusion. 5. Hypokalemia. 6. Anemia microcytic multifactorial. 7. Elevated lactic acid, present on admission secondary to sepsis. 8. Hypoalbuminemia with possible chronic liver disease. 9. History of recent acute renal failure. 10.History of recently diagnosed adrenocortical insufficiency. 11.History of bariatric surgery. 12.History of bowel resection. 13.History of right kidney lesion status post cryoablation at [facility]. 14.Gastric sleeve and Bibi-en-Y 2013. 15.Obesity. 16.History of nicotine dependence. 17.FULL CODE. RECOMMENDATIONS AND DISCUSSION: In this 69-year-old gentleman who presented with multiple complex medical issues, we will monitor the patient closely, continue the current medications, continue bronchodilators. Continue with empiric antibiotics. IV diuretics has been continued. The patient diuresing well, accepting the weight loss and symptomatic improvement. Otherwise, we will await the 2D echo to determine ejection fraction. Otherwise, continue with the rest of the medications. The blood pressure is significantly improved. I would recommend to cut down the dose of hydrocortisone to 50 mg IV q.8h. Otherwise follow the cultures. Urine showed gram-negative bacilli. Increase ambulation. Closely eval the patient for safety at home and as well as possible ECF rehab also. Prognosis guarded because of above mentioned multiple complex medical issues. Further recommendations to follow. MMMARIA CL / IJN: [id number] /
[2019-07-25] MEDS: TEMAZEPAM 15 MG CAP PO PRN (22:53)
[2019-07-25] MEDS: LEVOFLOXACIN 500 MG TAB PO SCH (22:53)
[2019-07-26] MEDS: HYDROCORTISONE SUCCINATE 100 MG/2 ML VIAL IV SCH ×3 (02:09→18:03)
[2019-07-26] MEDS: PIPERACILLIN-TAZOBACTAM 3.375 GM in SODIUM CHLORIDE 0.9% 100 ML IVPB SCH ×3 (04:59→20:23)
[2019-07-26] MEDS: IPRATROPIUM-ALBUTEROL 3 ML NEB INHALATION SCH ×3 (06:57→18:56)
[2019-07-26] MEDS: FUROSEMIDE 10 MG/ML 4 ML VIAL IV SCH ×2 (08:23→21:52)
[2019-07-26] MEDS: CHOLECALCIFEROL 1,000 UNIT TAB PO SCH (08:23)
[2019-07-26] MEDS: ALLOPURINOL 300 MG TAB PO SCH (08:23)
[2019-07-26] MEDS: PANTOPRAZOLE 40 MG TABLET PO SCH ×2 (08:23→18:03)
[2019-07-26] MEDS: POTASSIUM CHLORIDE ER 20 MEQ TAB.ER PO SCH ×5 (08:23→21:52)
[2019-07-26] MEDS: MULTIVITAMINS, THERA 1 EACH TAB PO SCH (08:23)
[2019-07-26] MEDS: APIXABAN 5 MG TAB PO SCH ×2 (08:23→21:52)
[2019-07-26] MEDS: POTASSIUM CHLORIDE ER 10 MEQ TAB.ER.PRT PO SCH (08:23)
--- NOTE | 2019-07-26 08:33 | CDI ---
Documentation Clarification Form Date: 07/26/2019 8:19:27 AM From: Viry Laguerre RN CCDS Admit Date: 07/24/2019 12:45:00 PM Patient Name: Martin Curtis Visit Number: [id number] Discharge Date: ATTENTION: The Clinical Documentation Specialists (CDI) and [facility] Coding Staff appreciate your assistance in clarifying documentation. Please respond to the clarification below the line at the bottom and electronically sign. The CDI & [facility] Coding staff will review the response and follow-up if needed. Please note: Queries are made part of the Legal Health Record. If you have any questions, please contact the author of this message via ITS. Dr. Jamal Steele Documentation in the H & P and Progress Note states: Elevated lactic acid, possibly secondary to sepsis History/Risk Factors: 69-year-old male presents to the ED with a cough, shortness of breath, chills and feeling hot over the last two days. Medical History Atrial Fibrillation; recently admitted with acute tubular necrosis Clinical indicators: Abnormal Lactic Acid 2.7 Treatment: 07/23/2019 0.9ns 1.5L bolus Clinical significance of diagnostic testing and treatment CANNOT be assumed or coded without physician documentation of significance if any. Please clarify what abnormal laboratory signifies: * Lactic Acidosis * Abnormal Lab Value * Unable to determine * Other, please specify (Last Revision: June 2017) Abnormal Lab Value MTDD
[2019-07-26 09:12] LABS: Basophils % (A) 0 %; Eosinophils % (A) 0 %; HCT 29.5 % (39.0-53.0); Hypochromasia Marked; Lymphocytes # (A) 0.6 k/uL (1.0-4.8); Lymphocytes % (A) 10 %; MCH 32.2 pg (25.0-35.0); MCHC 30.5 g/dL (31.0-37.0); MCV 105.7 fL (80.0-100.0); Macrocytosis Moderate; Mean Platelet Volume 6.9; Monocytes # (A) 0.2 k/uL (0-1.0); Monocytes % (A) 3 %; Neutrophils # (A) 4.6 k/uL (1.3-7.7); Neutrophils % (A) 85 %; Platelet Count 237 k/uL (150-450); RBC 2.79 m/uL (4.30-5.90); WBC 5.4 k/uL (3.8-10.6)
[2019-07-26 09:14] LABS: INR 1.2 (<1.2); Prothrombin Time 12.3 sec (9.0-12.0)
[2019-07-26 09:23] LABS: Calcium 8.3 mg/dL (8.4-10.2); Potassium 2.9 mmol/L (3.5-5.1)
[2019-07-26] MEDS ORDERED: Potassium Replacement Protocol 1 EACH MISC MISCELLANE PRN (09:50)
[2019-07-26] MEDS: HYDROcodone/APAP 7.5-325MG 1 EACH TAB PO PRN ×2 (10:35→23:43)
--- NOTE | 2019-07-26 10:49 | ECHOF ---
Referral Reason:chf MEASUREMENTS -------- HEIGHT: 180.3 cm WEIGHT: 115.7 kg BP: 104/72 RVIDd: 3.8 cm (< 3.3) IVSd: 1.3 cm (0.6 - 1.1) LVIDd: 4.2 cm (3.9 - 5.3) LVPWd: 1.3 cm (0.6 - 1.1) IVSs: 1.9 cm LVIDs: 2.7 cm LVPWs: 1.6 cm LA Diam: 3.7 cm (2.7 - 3.8) LAESV Index (A-L): 25.44 ml/m Ao Diam: 3.6 cm (2.0 - 3.7) AV Cusp: 2.3 cm (1.5 - 2.6) MV EXCURSION: 16.963 mm (> 18.000) MV EF SLOPE: 77 mm/s (70 - 150) EPSS: 0.6 cm RAP: 5.00 mmHg RVSP: 30.53 mmHg FINDINGS -------- Atrial fibrillation. This was a technically adequate study. The left ventricular size is normal. There is mild concentric left ventricular hypertrophy. Overa ll left ventricular systolic function is normal with, an EF between 60 - 65 %. The right ventricle is mild to moderately enlarged. Normal LA size by volume 22+/-6 ml/m2. The right atrium is normal in size. The aortic valve is trileaflet and appears structurally normal. The mitral valve is normal. Mild tricuspid regurgitation present. Right ventricular systolic pressure is normal at < 35 mmHg. There is no pulmonic regurgitation present. The aortic root size is normal. IVC Not well visulized. There is no pericardial effusion. CONCLUSIONS -------- 1. Atrial fibrillation. 2. This was a technically adequate study. 3. The left ventricular size is normal. 4. There is mild concentric left ventricular hypertrophy. 5. Overall left ventricular systolic function is normal with, an EF between 60 - 65 %. 6. The right ventricle is mild to moderately enlarged. 7. Normal LA size by volume 22+/-6 ml/m2. 8. The right atrium is normal in size. 9. The aortic valve is trileaflet and appears structurally normal. 10. The mitral valve is normal. 11. Mild tricuspid regurgitation present. 12. Right ventricular systolic pressure is normal at < 35 mmHg. 13. There is no pulmonic regurgitation present. 14. The aortic root size is normal. 15. IVC Not well visulized. 16. There is no pericardial effusion. STATISTICAL GENETICIST: Bhavya Valenzuela RDCS
[2019-07-26] MEDS: guaiFENesin SYRUP 100MG/5ML 200 MG/10 ML CUP PO PRN (11:19)
--- NOTE | 2019-07-26 22:01 | PN ---
PROGRESS NOTE DATE OF SERVICE: 07/26/2019 This 69-year-old gentleman who was admitted with shortness of breath and multiple other medical problems, improving significantly. No chest pain. No palpitations. Patient is still weak. PT/OT evaluating the patient closely for possible ECF rehab. Hemoglobin is 9. INR is 1.2. Potassium is 2.9 today. PAST MEDICAL HISTORY: Reviewed. REVIEW OF SYSTEMS: CARDIOVASCULAR SYSTEM: No angina or palpitations. RESPIRATION as mentioned earlier. GASTROINTESTINAL: As mentioned earlier. no dysuria. NERVOUS SYSTEM: Generalized weakness. CURRENT MEDICATIONS: Reviewed and include: 1. [place] 7.5. 2. DuoNeb q.i.d. 3. Eliquis. 4. Vitamin D3. 5. Lasix 40 mg IV b.i.d. 6. Robitussin. 7. Solu-Cortef 50 IV q.8h. 8. Levaquin 500 mg daily. 9. Replacement protocols. 10.Multivitamins. 11.Protonix. 12.K-Dur. 13.Restoril. 14.Doses reviewed. PHYSICAL EXAMINATION: Alert and oriented times three. Pulse 83, blood pressure 124/84, respiration 17, temperature 97.7, pulse ox normal. HEENT: Conjunctivae normal. Oral mucosa moist. NECK is no jugular venous distention. No carotid bruit. No lymph node enlargement. CARDIOVASCULAR SYSTEM: S1, S2 muffled. RESPIRATORY: Breath sounds diminished in the bases. A few scattered rhonchi and crackles. ABDOMEN is soft, nontender. LEGS are no edema. No swelling. CENTRAL NERVOUS SYSTEM: Diffusely weak. LABS: WBC 5.2, hemoglobin is 9, sodium is 143, potassium 2.9. ASSESSMENT: 1. Shortness of breath, possible bibasilar acute pneumonia, bibasilar pneumonia with possibly gram-negative with sepsis present on admission. 2. Severe hypokalemia. 3. Congestive heart failure, acute exacerbation, ejection fraction unknown. 4. Left pleural effusion. 5. Hypokalemia. 6. Anemia normocytic, multifactorial. 7. Elevated lactic acid, present on admission secondary to sepsis. 8. Hypoalbuminemia, possibly chronic liver disease. 9. History of recent acute renal failure. 10.History of recently diagnosed adrenal cortical insufficiency. 11.History of bariatric surgery. 12.History of bowel resection. 13.History of right kidney lesion status post cryoablation at [facility]. 14.Gastric sleeve and Bibi-en-Y 2013. 15.Obesity. 16.History of nicotine dependence. 17.FULL CODE. RECOMMENDATIONS AND DISCUSSION: I recommend to continue current medications, management and symptomatic treatment. Otherwise, at this time I recommend continue with antibiotics. Continue with bronchodilators. Monitor creatinine closely and supplement potassium. Guarded prognosis because of multiple complex medical conditions. See orders for details. Further recommendations to follow. MMODL / IJN: [id number] /
--- NOTE | 2019-07-26 23:25 | P.PN ---
Subjective Progress Note Date: 07/26/19 69-year-old male with a complex past medical history. In 2014 and a gastric sleeve and the role and why performed for his superobesity and has had approximately 100 pound weight loss. He however is gained some fluid weight back as of late. It is noted that he was recently hospitalized at which point in time there was difficulties with adrenal insufficiency, his atrial fibrillation and acute renal failure. The patient improved and was sent to the rehab facility. Apparently just a few days of getting back to his home routine and now he is with increasing shortness of breath cough fever chills inability to get around because presents to the emergency center. There is evidence of changes in his chest x-ray consistent with bibasilar pneumonia as well as potential pleural effusions. He had fever and constantly was admitted and septic workup was begun antibiotic therapy started for pneumonia. He has not the patient has multiple medical troubles which include a history of prior alc ohol use with pancreatitis and possible chronic liver disease. He is a chronic rather lower extremity edema but denies current open ulcerations. 07/26/2019 the patient seems to be feeling slightly better today. He has had adequate diuresis. Urine culture is now available. Objective - Vital Signs Vital signs: Vital Signs Temp 97.7 F 07/26/19 19:06 Pulse 83 07/26/19 20:20 Resp 17 07/26/19 20:20 BP 124/84 07/26/19 19:06 Pulse Ox 99 07/26/19 13:15 Intake & Output 07/26/19 07/26/19 07/27/19 06:59 18:59 06:59 Intake Total 540 820 300 Output Total 3 Balance 537 820 300 Weight 112 kg Intake: Oral 540 820 300 Output: Urine 3 Other: Voiding Method Urinal # Voids 1 4 # Bowel Movements 1 - Exam 61-year-old male with obesity is mildly short of breath HEENT: Anicteric conjunctiva are pink and moist nasal mucosa grossly intact without significant lesions, there is no thrush.upper denture Neck: The neck is supple without significant lymphadenopathy or thyromegaly. Lungs: There is symmetrical bilateral air entry, there scattered expiratory wheezes, bibasilar crackles with bronchial sounds to the right base no distinct egophony is noted Heart: Irregular with an audible S1 and S2 soft S4 no distinct murmur click or rub PMI is nondisplaced no urethral Abdomen: obese,Positive bowel sounds soft and nontender without palpable masses or organomegaly. There was no guarding or rebound. Extremities: The upper extremities have excellent pulses they are symmetric, no significant petechiae or telangiectasia. No splinter hemorrhages were noted. The lower extremities Have mild edema but no ulcerations are seen. Some chronic venous stasis change with chronic venous engorgement is seen no tenderness to the limbs. Neuro: Awake alert oriented to person place and time. There are no acute new gross focal sensory motor deficits. - Labs CBC & Chem 7: 07/26/19 08:05 07/26/19 21:36 Labs: Abnormal Lab Results - Last 24 Hours (Table) 07/26/19 07/26/19 07/26/19 Range/Units 08:05 08:05 08:05 RBC 2.79 L (4.30-5.90) m/uL Hgb 9.0 L (13.0-17.5) gm/dL Hct 29.5 L (39.0-53.0) % MCV 105.7 H (80.0-100.0) fL MCHC 30.5 L (31.0-37.0) g/dL Lymphocytes # 0.6 L (1.0-4.8) k/uL PT 12.3 H (9.0-12.0) sec INR 1.2 H (<1.2) Potassium 2.9 L (3.5-5.1) mmol/L Chloride (98-107) mmol/L Carbon Dioxide 34 H (22-30) mmol/L Glucose 109 H (74-99) mg/dL Calcium 8.3 L (8.4-10.2) mg/dL 07/26/19 Range/Units 21:36 RBC (4.30-5.90) m/uL Hgb (13.0-17.5) gm/dL Hct (39.0-53.0) % MCV (80.0-100.0) fL MCHC (31.0-37.0) g/dL Lymphocytes # (1.0-4.8) k/uL PT (9.0-12.0) sec INR (<1.2) Potassium 3.0 L (3.5-5.1) mmol/L Chloride 108 H (98-107) mmol/L Carbon Dioxide 37 H (22-30) mmol/L Glucose (74-99) mg/dL Calcium (8.4-10.2) mg/dL Microbiology - Last 24 Hours (Table) 07/23/19 08:40 Blood Culture - Preliminary Blood No Growth after 72 hours 07/23/19 16:05 Urine Culture - Final Urine,Voided Escherichia coli Laboratory Results WBC 5.4 k/uL (3.8-10.6) 07/26/19 08:05 RBC 2.79 m/uL (4.30-5.90) L 07/26/19 08:05 Hgb 9.0 gm/dL (13.0-17.5) L 07/26/19 08:05 Hct 29.5 % (39.0-53.0) L 07/26/19 08:05 MCV 105.7 fL (80.0-100.0) H 07/26/19 08:05 MCH 32.2 pg (25.0-35.0) 07/26/19 08:05 MCHC 30.5 g/dL (31.0-37.0) L 07/26/19 08:05 RDW 15.0 % (11.5-15.5) 07/26/19 08:05 Plt Count 237 k/uL (150-450) 07/26/19 08:05 Neutrophils % 85 % 07/26/19 08:05 Neutrophils % (Manual) 90 % 07/23/19 08:40 Lymphocytes % 10 % 07/26/19 08:05 Lymphocytes % (Manual) 7 % 07/23/19 08:40 Monocytes % 3 % 07/26/19 08:05 Monocytes % (Manual) 3 % 07/23/19 08:40 Eosinophils % 0 % 07/26/19 08:05 Basophils % 0 % 07/26/19 08:05 Neutrophils # 4.6 k/uL (1.3-7.7) 07/26/19 08:05 Neutrophils # (Manual) 6.57 k/uL (1.3-7.7) 07/23/19 08:40 Lymphocytes # 0.6 k/uL (1.0-4.8) L 07/26/19 08:05 Lymphocytes # (Manual) 0.51 k/uL (1.0-4.8) L 07/23/19 08:40 Monocytes # 0.2 k/uL (0-1.0) 07/26/19 08:05 Monocytes # (Manual) 0.22 k/uL (0-1.0) 07/23/19 08:40 Eosinophils # 0.0 k/uL (0-0.7) 07/26/19 08:05 Basophils # 0.0 k/uL (0-0.2) 07/26/19 08:05 Nucleated RBCs 0 /100 WBC (0-0) 07/23/19 08:40 Manual Slide Review Performed 07/23/19 08:40 Hypochromasia Marked 07/26/19 08:05 Poikilocytosis (manual Present 07/23/19 08:40 Anisocytosis (manual) Present 07/23/19 08:40 Macrocytosis Moderate 07/26/19 08:05 Target Cells Present 07/23/19 08:40 Stomatocytes Present 07/23/19 08:40 PT 12.3 sec (9.0-12.0) H 07/26/19 08:05 INR 1.2 (<1.2) H 07/26/19 08:05 APTT 30.7 sec (22.0-30.0) H 07/23/19 09:10 Sodium 144 mmol/L (137-145) 07/26/19 21:36 Potassium 3.0 mmol/L (3.5-5.1) L 07/26/19 21:36 Chloride 108 mmol/L (98-107) H 07/26/19 21:36 Carbon Dioxide 37 mmol/L (22-30) H 07/26/19 21:36 Anion Gap -1 mmol/L 07/26/19 21:36 BUN 10 mg/dL (9-20) 07/26/19 08:05 Creatinine 1.05 mg/dL (0.66-1.25) 07/26/19 08:05 Est GFR (CKD-EPI)AfAm 84 (>60 ml/min/1.73 sqM) 07/26/19 08:05 Est GFR (CKD-EPI)NonAf 73 (>60 ml/min/1.73 sqM) 07/26/19 08:05 Glucose 109 mg/dL (74-99) H 07/26/19 08:05 Lactic Ac Sepsis Rflx Y 07/23/19 09:19 Plasma Lactic Acid Sung 1.0 mmol/L (0.7-2.0) 07/23/19 13:04 Calcium 8.3 mg/dL (8.4-10.2) L 07/26/19 08:05 Total Bilirubin 0.9 mg/dL (0.2-1.3) 07/23/19 09:10 AST 48 U/L (17-59) 07/23/19 09:10 ALT 41 U/L (21-72) 07/23/19 09:10 Alkaline Phosphatase 269 U/L (38-126) H 07/23/19 09:10 Troponin I <0.012 ng/mL (0.000-0.034) 07/24/19 18:48 NT-Pro-B Natriuret Pep 4010 pg/mL 07/24/19 18:48 Total Protein 4.4 g/dL (6.3-8.2) L 07/23/19 09:10 Albumin 1.9 g/dL (3.5-5.0) L 07/23/19 09:10 Urine Color Yellow 07/23/19 16:05 Urine Appearance Clear (Clear) 07/23/19 16:05 Urine pH 5.5 (5.0-8.0) 07/23/19 16:05 Ur Specific [place] 1.025 (1.001-1.035) 07/23/19 16:05 Urine Protein Trace (Negative) H 07/23/19 16:05 Urine Glucose (UA) Negative (Negative) 07/23/19 16:05 Urine Ketones Negative (Negative) 07/23/19 16:05 Urine Blood Trace (Negative) H 07/23/19 16:05 Urine Nitrite Positive (Negative) 07/23/19 16:05 Urine Bilirubin Negative (Negative) 07/23/19 16:05 Urine Urobilinogen 2.0 mg/dL (<2.0) 07/23/19 16:05 Ur Leukocyte Esterase Large (Negative) H 07/23/19 16:05 Urine RBC 8 /hpf (0-5) H 07/23/19 16:05 Urine WBC 36 /hpf (0-5) H 07/23/19 16:05 Ur Squamous Epith Cells <1 /hpf (0-4) 07/23/19 16:05 Urine Bacteria Many /hpf (None) H 07/23/19 16:05 Hyaline Casts 4 /lpf (0-2) H 07/23/19 16:05 Urine Mucus Rare /hpf (None) H 07/23/19 16:05 Influenza Type A RNA Not Detected (Not Detectd) 07/23/19 08:40 Influenza Type B (PCR) Not Detected (Not Detectd) 07/23/19 08:40 Urine Legionella Ag Not detected (Not detected) 07/23/19 16:05 Microbiology 07/23/19 08:40 Blood Blood Culture - Preliminary No Growth after 72 hours 07/23/19 16:05 Urine,Voided Urine Culture - Final Escherichia coli Assessment and Plan (1) Healthcare-associated pneumonia Narrative/Plan: 69-year-old male presents to Hospital from home with a several-day history of increasing shortness of breath and increasing difficulties with activities about his home. The day of admission he develops fever and chills and consequently presents to Hospital. Initially the patient was recently hospitalized and then in the rehab facility. Currently been on for a couple of days before the onset of his symptoms and what is concerning to be pneumonia given the abnormal chest x-ray fever and respiratory symptoms. Given that he's been at the rehab facility piperacillin tazobactam and Levaquin will be utilized. Blood cultures and sputum culture is requested we'll also check a urine Legionella antigen given his level of illness. his atrial fibrillation appears to be well controlled, He is not hypotensive and does not appear to be in an acute adrenal crisis situation. 07/26/2019 the patient seems to be doing somewhat better. With diuresis he is much less short of breath. He does not have other acute complaints. Urine Legionella antigen is negative Blood culture is negative Chest x-rays improved Urinalysis was abnormal urine culture has a somewhat susceptible E. coli. As the patient improves would be able to transition to oral antibiotic therapy to complete the treatment of his urinary tract infection. Hopefully with ongoing treatment of his heart failure and volume overload his pulmonary status will also continue to improve. No convincing evidence of significant pneumonia. Current Visit: Yes Status: Acute Code(s): J18.9 - PNEUMONIA, UNSPECIFIED ORGANISM SNOMED Code(s): 634176520 (2) Pleural effusion Current Visit: Yes Status: Acute Code(s): J90 - PLEURAL EFFUSION, NOT ELSEWHERE CLASSIFIED SNOMED Code(s): 78049874 (3) Fever Current Visit: Yes Status: Acute Code(s): R50.9 - FEVER, UNSPECIFIED SNOMED Code(s): 743567310
[2019-07-26] MEDS: TEMAZEPAM 15 MG CAP PO PRN (23:54)
[2019-07-27] MEDS: LEVOFLOXACIN 500 MG TAB PO SCH (00:53)
[2019-07-27] MEDS: POTASSIUM CHLORIDE ER 20 MEQ TAB.ER PO SCH ×4 (00:53→09:04)
[2019-07-27] MEDS: guaiFENesin SYRUP 100MG/5ML 200 MG/10 ML CUP PO PRN ×2 (00:57→09:12)
[2019-07-27] MEDS: HYDROCORTISONE SUCCINATE 100 MG/2 ML VIAL IV SCH ×2 (01:59→09:05)
[2019-07-27] MEDS: PIPERACILLIN-TAZOBACTAM 3.375 GM in SODIUM CHLORIDE 0.9% 100 ML IVPB SCH ×2 (04:13→11:55)
[2019-07-27] MEDS: IPRATROPIUM-ALBUTEROL 3 ML NEB INHALATION SCH ×2 (08:25→13:05)
[2019-07-27] MEDS: PANTOPRAZOLE 40 MG TABLET PO SCH (09:04)
[2019-07-27] MEDS: CHOLECALCIFEROL 1,000 UNIT TAB PO SCH (09:04)
[2019-07-27] MEDS: ALLOPURINOL 300 MG TAB PO SCH (09:04)
[2019-07-27] MEDS: APIXABAN 5 MG TAB PO SCH (09:04)
[2019-07-27] MEDS: MULTIVITAMINS, THERA 1 EACH TAB PO SCH (09:04)
[2019-07-27] MEDS: FUROSEMIDE 10 MG/ML 4 ML VIAL IV SCH (09:04)
[2019-07-27] MEDS: HYDROcodone/APAP 7.5-325MG 1 EACH TAB PO PRN (12:56)
--- NOTE | 2019-07-27 13:27 | P.DS ---
Providers Date of admission: 07/24/19 12:45 Expected date of discharge: 07/27/19 Attending physician: Jamal Steele Consults: 07/23/19 12:27 Consult Physician Routine Consulting Provider: Jose Manuel Shirley Reason/Comments: PNEUMONIA Do you want consulting provider notified?: Yes Primary care physician: Rebekah Hood [facility] Course: Final diagnosis Shortness of breath, possible right basilar acute pneumonia, bibasilar pneumonia with possibly gram-negative with sepsis, present on admission Severe hypokalemia Congestive heart failure, acute exacerbation, ejection fraction between 60-65%. Left pleural effusion Hypokalemia Anemia normocytic, multifactorial Elevated lactic acid, present on admission secondary to sepsis Hypoalbuminemia, possibly chronic liver disease History of recent acute renal failure History of recently diagnosed adrenocortical insufficiency History of bariatric surgery History of bowel resection History of right kidney lesion status post cryoablation's at [facility] Gastric sleeve and Bibi-en-Y in 2013 Obesity History of nicotine dependence Full code Discharge disposition Patient is being discharged in a stable condition with guarded prognosis to [facility] and will continue with PT/OT therapy. Patient will also continue with oral antibiotics per infectious disease recommendations and accommodations are being made. Total time taken is 35 minutes. History of present illness This is a 69-year-old male who was recently admitted with shortness of breath, possible bibasilar acute pneumonia, bibasilar pneumonia possibly gram-negative with sepsis, that was present on admission with acute exacerbation of congestive heart failure and was being closely monitored. Infectious disease was following closely for antibiotic management and will be making accommodations and recommendations for oral antibiotics to complete in the outpatient setting. Patient will continue with PT/OT for strength and mobility at [facility]. During hospitalization patient underwent an echo showing left ventricular systolic function being normal with an EF between 60 and 65% with mild tricuspid regurgitation. Currently patient denies any chest pain, shortness of breath, or palpitations at this time. Patient has been afebrile. Patient denies any nausea or vomiting and is having occasional diarrhea. Patient is tolerating diet. During hospitalization patient's potassium was low and being replaced with the current potassium today of 3.6 and was being closely monitored. Patient will continue on potassium supplementation in the outpatient setting. Patient will need repeat labs in a few days to monitor the electrolytes. Currently patient's condition is stable with much improvement will be discharged today to [facility] on the [place]. Guarded prognosis. On exam vital signs are stable. Temp is 97.5F, pulse is 96, respirations 16, blood pressure is 124/83, oxygen saturation is 95% on room air. Cardio S1 and S2 are muffled. Respiratory system shows diminished breath sounds at the bases with a few scattered rhonchi noted. Abdomen is soft, obese, and nontender upon palpation. Nervous system shows no focal deficits with mild diffuse weakness. Please refer to medication reconciliation sheet for a list of medications. Patient Condition at Discharge: Fair Plan - Discharge Summary New Discharge Prescriptions: New Ipratropium-Albuterol Nebulize [Duoneb 0.5 mg-3 mg/3 ml Soln] 3 ml INHALATION RT-TID ampul.neb Ipratropium-Albuterol Nebulize [Duoneb 0.5 mg-3 mg/3 ml Soln] 3 ml INHALATION RT-TID PRN ampul.neb PRN Reason: Shortness Of Breath Or Wheezing Potassium Chloride ER [K-Dur 20] 40 meq PO DAILY tab.er.prt HYDROcodone/APAP 7.5-325MG [[place] 7.5-325] 1 each PO Q12HR PRN #6 tab PRN Reason: Moderate Pain Temazepam [Restoril] 15 mg PO HS PRN #3 cap PRN Reason: Insomnia guaiFENesin SYRUP 100MG/5ML [Robitussin] 200 mg PO Q6H PRN cup PRN Reason: Cough Budesonide/Formoterol Fumarate [Symbicort 160-4.5 Mcg Inhaler] 1 puff IH BID #1 hfa.aer.ad Continue Allopurinol [Zyloprim] 300 mg PO DAILY Cholecalciferol [Vitamin D3 (25 Mcg = 1000 Iu)] 5,000 unit PO DAILY Multivitamin [Men's Multi-Vitamin] 1 tab PO DAILY #30 Apixaban [Eliquis] 5 mg PO BID #0 Pantoprazole Sodium [Protonix] 40 mg PO BID #60 tablet.dr Furosemide [Lasix] 40 mg PO DAILY tab Metoprolol Tartrate [Lopressor] 25 mg PO DAILY Midodrine [ProAmatine] 15 mg PO AC-TID Changed Hydrocortisone [Cortef] 20 mg PO QAM #0 Hydrocortisone [Cortef] 10 mg PO HS #0 Discontinued Potassium Chloride [K-Tab ER] 10 meq PO DAILY #14 tablet.er Discharge Medication List Allopurinol [Zyloprim] 300 mg PO DAILY 02/22/14 [History] Cholecalciferol [Vitamin D3 (25 Mcg = 1000 Iu)] 5,000 unit PO DAILY 07/26/14 [History] Multivitamin [Men's Multi-Vitamin] 1 tab PO DAILY #30 07/01/17 [Rx] Apixaban [Eliquis] 5 mg PO BID #0 06/28/18 [Rx] Pantoprazole Sodium [Protonix] 40 mg PO BID #60 tablet.dr 06/28/18 [Rx] Furosemide [Lasix] 40 mg PO DAILY tab 06/07/19 [Rx] Metoprolol Tartrate [Lopressor] 25 mg PO DAILY 07/23/19 [History] Midodrine [ProAmatine] 15 mg PO AC-TID 07/25/19 [History] Budesonide/Formoterol Fumarate [Symbicort 160-4.5 Mcg Inhaler] 1 puff IH BID #1 hfa.aer.ad 07/27/19 [Rx] HYDROcodone/APAP 7.5-325MG [[place] 7.5-325] 1 each PO Q12HR PRN #6 tab 07/27/19 [Rx] Hydrocortisone [Cortef] 10 mg PO HS #0 07/27/19 [Rx] Hydrocortisone [Cortef] 20 mg PO QAM #0 07/27/19 [Rx] Ipratropium-Albuterol Nebulize [Duoneb 0.5 mg-3 mg/3 ml Soln] 3 ml INHALATION RT-TID ampul.neb 07/27/19 [Rx] Ipratropium-Albuterol Nebulize [Duoneb 0.5 mg-3 mg/3 ml Soln] 3 ml INHALATION RT-TID PRN ampul.neb 07/27/19 [Rx] Potassium Chloride ER [K-Dur 20] 40 meq PO DAILY tab.er.prt 07/27/19 [Rx] Temazepam [Restoril] 15 mg PO HS PRN #3 cap 07/27/19 [Rx] guaiFENesin SYRUP 100MG/5ML [Robitussin] 200 mg PO Q6H PRN cup 07/27/19 [Rx] Follow up Appointment(s)/Referral(s): Rebekah Hood DO [Primary Care Provider] - 1-2 days [facility], [NON-STAFF] - Ambulatory/Diagnostic Orders: Basic Metabolic Panel [LAB.AMB] Time Frame: 2 Days, Location: None Selected Activity/Diet/Wound Care/Special Instructions: Patient is going to [facility] on the [place] Activity as tolerated Continue current diet Follow-up with primary care provider upon discharge Repeat labs in 2-3 days Continue complete course of antibiotics per infectious disease recommendations until finished Discharge Disposition: TRANSFER TO SNF/ECF
[2019-07-27 14:10] VITALS: BP 112/71; PULSE 101; RESP 16; TEMP 97.9
--- NOTE | 2019-08-03 06:56 | CDI ---
Documentation Clarification Form Date: 08/03/2019 6:44:15 AM From: Padmaja Whiting Phone: If you have a question about this query, please contact Gisselle Carr [employer] Con[employer] Operator at [phone] between 8am and 5pm. Admit Date: 07/24/2019 12:45:00 PM Patient Name: Martin Curtis Visit Number: [id number] Discharge Date: 07/27/2019 4:57:00 PM ATTENTION: The Clinical Documentation Specialists (CDI) and [facility] Coding Staff appreciate your assistance in clarifying documentation. Please respond to the clarification below the line at the bottom and electronically sign. The CDI & [facility] Coding staff will review the response and follow-up if needed. Please note: Queries are made part of the Legal Health Record. If you have any questions, please contact the author of this message via ITS. Dr. Jamal Steele CHF is documented in DCS and throughout chart as acute exacerbation of CHF. Please clarify type of CHF. History/Risk Factors: SOB sepsis pneumonia gram negative VS/Pulse OX: 91% 2L BNP: 4010 Chest X Ray: enlarged heart cannot exclude mild degree of CHF Treatment: IV lasix 40 mg In your professional opinion, can you please clarify the type of CHF if known? Systolic Heart Failure: Diastolic Heart Failure Combined systolic and diastolic heart failure Unable to determine MTDD
== END 2019-07-27 16:57 | DRG 871 ==
LOC: EC 08:00 → 4MS4W 10:27 → OBSVTOIN 07-24 12:45
PROVIDERS: ADMIT Hospitalist; ATTEND Hospitalist
DX: A41.50 Gram-negative sepsis, unspecified (principal); J15.6 Pneumonia due to other Gram-negative bacteria; E27.40 Unspecified adrenocortical insufficiency; N17.9 Acute kidney failure, unspecified; N39.0 Urinary tract infection, site not specified; Y95 Nosocomial condition; Z85.528 Personal history of other malignant neoplasm of kidney; D50.9 Iron deficiency anemia, unspecified; D53.9 Nutritional anemia, unspecified; E66.9 Obesity, unspecified; Z68.34 Body mass index [BMI] 34.0-34.9, adult; E87.6 Hypokalemia; I48.0 Paroxysmal atrial fibrillation; I49.3 Ventricular premature depolarization; I50.9 Heart failure, unspecified; N40.0 Benign prostatic hyperplasia without lower urinary tract symptoms; R56.9 Unspecified convulsions; Z79.01 Long term (current) use of anticoagulants; Z79.899 Other long term (current) drug therapy; Z80.3 Family history of malignant neoplasm of breast; Z80.41 Family history of malignant neoplasm of ovary; Z82.49 Family history of ischemic heart disease and other diseases of the circulatory system; Z82.5 Family history of asthma and other chronic lower respiratory diseases; Z86.711 Personal history of pulmonary embolism; Z87.01 Personal history of pneumonia (recurrent); Z87.19 Personal history of other diseases of the digestive system; Z87.891 Personal history of nicotine dependence; Z90.49 Acquired absence of other specified parts of digestive tract; Z96.652 Presence of left artificial knee joint; Z98.84 Bariatric surgery status; F10.21 Alcohol dependence, in remission; Z91.81 History of falling; M15.9 Polyosteoarthritis, unspecified; Z86.010 Personal history of colon polyps; Z60.2 Problems related to living alone; K76.9 Liver disease, unspecified
CPT/HCPCS: 36415; 71046; 80048; 80051; 80053; 81001; 83605; 83880; 84132; 84484; 85025; 85610; 85730; 87040; 87077; 87086; 87186; 87449; 87502; 93005; 93306; 94640; 94760; 96365; 99285

== ENCOUNTER 2019-08-10 17:15 | Observation (INO) | payer MEDICARE, OTHER ==
[2019-08-10] MEDS ORDERED: PANTOPRAZOLE 40 MG/10 ML VIAL IVP STA (17:19)
--- NOTE | 2019-08-10 17:39 | ED ---
General Adult HPI - General Chief complaint: Recheck/Abnormal Lab/Rx Stated complaint: low hemoglobin Time Seen by Provider: 08/10/19 17:17 Source: patient, RN/MD, EMS, RN notes reviewed, old records reviewed Mode of arrival: EMS Limitations: no limitations - History of Present Illness Initial comments: Patient is a pleasant 69-year-old male presenting to the emergency department with reported anemia. Patient was in the hospital recently with pneumonia. Patient states he is feeling better with that. Patient was discharged to rehab and was planning on leaving their soon. 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 Hemoglobin has been dropping from 8- 7.1. Patient did have positive Hemoccult. Patient denies any fatigue. No abdominal pain. No fevers. Patient states he feels normal. - Related Data Home Medications Medication Instructions Recorded Confirmed Allopurinol [Zyloprim] 300 mg PO DAILY 02/22/14 07/23/19 Cholecalciferol [Vitamin D3 (25 5,000 unit PO DAILY 07/26/14 07/23/19 Mcg = 1000 Iu)] Metoprolol Tartrate [Lopressor] 25 mg PO DAILY 07/23/19 07/25/19 Midodrine [ProAmatine] 15 mg PO AC-TID 07/25/19 07/25/19 Previous Rx's Medication Instructions Recorded Multivitamin [Men's Multi-Vitamin] 1 tab PO DAILY #30 07/01/17 Apixaban [Eliquis] 5 mg PO BID #0 06/28/18 Pantoprazole Sodium [Protonix] 40 mg PO BID #60 tablet.dr 06/28/18 Furosemide [Lasix] 40 mg PO DAILY tab 06/07/19 Budesonide/Formoterol Fumarate 1 puff IH BID #1 hfa.aer.ad 07/27/19 [Symbicort 160-4.5 Mcg Inhaler] Cefuroxime Axetil [Ceftin] 500 mg PO BID #14 tab 07/27/19 HYDROcodone/APAP 7.5-325MG [[place] 1 each PO Q12HR PRN #6 tab 07/27/19 7.5-325] Hydrocortisone [Cortef] 10 mg PO HS #0 07/27/19 Hydrocortisone [Cortef] 20 mg PO QAM #0 07/27/19 Ipratropium-Albuterol Nebulize 3 ml INHALATION RT-TID ampul.neb 07/27/19 [Duoneb 0.5 mg-3 mg/3 ml Soln] Ipratropium-Albuterol Nebulize 3 ml INHALATION RT-TID PRN 07/27/19 [Duoneb 0.5 mg-3 mg/3 ml Soln] ampul.neb Potassium Chloride ER [K-Dur 20] 40 meq PO DAILY tab.er.prt 07/27/19 Temazepam [Restoril] 15 mg PO HS PRN #3 cap 07/27/19 guaiFENesin SYRUP 100MG/5ML 200 mg PO Q6H PRN cup 07/27/19 [Robitussin] Allergies Allergy/AdvReac Type Severity Reaction Status Date / Time No Known Allergies Allergy Verified 07/23/19 09:15 Review of Systems ROS Statement: Those systems with pertinent positive or pertinent negative responses have been documented in the HPI. ROS Other: All systems not noted in ROS Statement are negative. Constitutional: Denies: fever Eyes: Denies: eye pain ENT: Denies: ear pain Respiratory: Denies: cough, dyspnea Cardiovascular: Denies: chest pain Endocrine: Denies: fatigue Gastrointestinal: Denies: abdominal pain, melena, hematochezia Genitourinary: Denies: dysuria Musculoskeletal: Denies: back pain Skin: Denies: rash Neurological: Denies: weakness Past Medical History Past Medical History: Atrial Fibrillation, Blood Disorder, Cancer, Osteoarthritis (OA), Pulmonary Embolus (PE) Additional Past Medical History / Comment(s): Afib/RVR, pulmonary embolism L lung, pancreatitis multiple times, ETOH abuse, was diagnosed with R renal carcinoma with cryoablation at [place], BPH, past R lung pneumo with chest tube, diverticulitis, benign colon polyps, arthritis multiple joints, abdominal hernias. Dizziness fall and right rib fractures 09/15/18,. Adrenal insufficiently History of Any Multi-Drug Resistant Organisms: None Reported Past Surgical History: Bariatric Surgery, Bowel Resection, Cholecystectomy, Hernia Repair, Joint Replacement Additional Past Surgical History / Comment(s): Recent (2017) r kidney lesion cryoablation at [facility], 2013 bowel resection d/t viscus perf with colostomy later reversed , gastric sleeve converted to darrell-en-Y 08/2014-post op wound infection, paraesphogeal hiat hernia repair, R inguinal and umbilical hernia repairs, colonoscopies, L total knee arthroplasty., Past Anesthesia/Blood Transfusion Reactions: No Reported Reaction Past Psychological History: No Psychological Hx Reported Smoking Status: Former smoker Past Alcohol Use History: None Reported Past Drug Use History: None Reported - Past Family History Father Family Medical History: COPD, Myocardial Infarction ([place]) Additional Family Medical History / Comment(s): Father from a DE at the age of 69yrs. Mother Family Medical History: Cancer Additional Family Medical History / Comment(s): Mother from ovarian cancer at the age of 69yrs. Sister(s) Family Medical History: Cancer Additional Family Medical History / Comment(s): at age 74yrs. Had breast cancer and a defibrillator General Exam Limitations: no limitations General appearance: alert, in no apparent distress Head exam: Present: atraumatic Eye exam: Present: normal appearance, PERRL ENT exam: Present: normal oropharynx Neck exam: Present: normal inspection Respiratory exam: Present: normal lung sounds bilaterally Cardiovascular Exam: Present: irregular rhythm GI/Abdominal exam: Present: soft. Absent: distended, tenderness Extremities exam: Present: normal inspection Neurological exam: Present: alert Psychiatric exam: Present: normal affect, normal mood Skin exam: Present: normal color Course Vital Signs 08/10/19 17:17 Temperature 97.6 F Pulse Rate 87 Respiratory 18 Rate Blood Pressure 153/96 O2 Sat by Pulse 99 Oximetry Medical Decision Making - Medical Decision Making Patient reevaluated and updated. Case discussed with Dr. Lyons, who will admit covering for Dr. Harrison. - Lab Data Result diagrams: 08/10/19 17:45 08/10/19 17:45 Lab Results 08/10/19 08/10/19 08/10/19 Range/Units 17:45 17:45 17:45 WBC 4.8 (3.8-10.6) k/uL RBC 2.74 L (4.30-5.90) m/uL Hgb 8.5 L (13.0-17.5) gm/dL Hct 27.0 L (39.0-53.0) % MCV 98.7 D (80.0-100.0) fL MCH 30.9 (25.0-35.0) pg MCHC 31.3 (31.0-37.0) g/dL RDW 15.2 (11.5-15.5) % Plt Count 279 (150-450) k/uL Neutrophils % 65 % Lymphocytes % 22 % Monocytes % 8 % Eosinophils % 1 % Basophils % 0 % Neutrophils # 3.1 (1.3-7.7) k/uL Lymphocytes # 1.1 (1.0-4.8) k/uL Monocytes # 0.4 (0-1.0) k/uL Eosinophils # 0.1 (0-0.7) k/uL Basophils # 0.0 (0-0.2) k/uL Hypochromasia Marked Macrocytosis Slight PT 10.2 (9.0-12.0) sec INR 0.9 (<1.2) APTT 22.6 (22.0-30.0) sec Sodium 138 (137-145) mmol/L Potassium 4.4 (3.5-5.1) mmol/L Chloride 108 H (98-107) mmol/L Carbon Dioxide 27 (22-30) mmol/L Anion Gap 3 mmol/L BUN 20 (9-20) mg/dL Creatinine 1.21 (0.66-1.25) mg/dL Est GFR (CKD-EPI)AfAm 71 (>60 ml/min/1.73 sqM) Est GFR (CKD-EPI)NonAf 61 (>60 ml/min/1.73 sqM) Glucose 94 (74-99) mg/dL Calcium 8.9 (8.4-10.2) mg/dL Magnesium 1.7 (1.6-2.3) mg/dL Total Bilirubin 0.4 (0.2-1.3) mg/dL AST 25 (17-59) U/L ALT 28 (21-72) U/L Alkaline Phosphatase 135 H (38-126) U/L Total Protein 5.1 L (6.3-8.2) g/dL Albumin 2.5 L (3.5-5.0) g/dL Disposition Clinical Impression: GI hemorrhage Disposition: ADMITTED IP TO THIS HOSP Is patient prescribed a controlled substance at d/c from ED?: No Referrals: Rebekah Hood DO [Primary Care Provider] - 1-2 days Decision Time: 18:59
[2019-08-10 18:06] LABS: Albumin 2.5 g/dL (3.5-5.0); Calcium 8.9 mg/dL (8.4-10.2); Magnesium 1.7 mg/dL (1.6-2.3); Potassium 4.4 mmol/L (3.5-5.1); Total Bilirubin 0.4 mg/dL (0.2-1.3); Total Protein 5.1 g/dL (6.3-8.2)
[2019-08-10 18:07] LABS: Basophils % (A) 0 %; Eosinophils # (A) 0.1 k/uL (0-0.7); Eosinophils % (A) 1 %; HGB 8.5 gm/dL (13.0-17.5); Hypochromasia Marked; Lymphocytes # (A) 1.1 k/uL (1.0-4.8); Lymphocytes % (A) 22 %; MCH 30.9 pg (25.0-35.0); MCHC 31.3 g/dL (31.0-37.0); Macrocytosis Slight; Monocytes # (A) 0.4 k/uL (0-1.0); Monocytes % (A) 8 %; Neutrophils # (A) 3.1 k/uL (1.3-7.7); Neutrophils % (A) 65 %; Platelet Count 279 k/uL (150-450); RBC 2.74 m/uL (4.30-5.90); RDW 15.2 % (11.5-15.5); WBC 4.8 k/uL (3.8-10.6)
[2019-08-10 18:09] LABS: MCV 98.7 fL (80.0-100.0)
[2019-08-10 18:12] LABS: INR 0.9 (<1.2); Partial Thromboplastin Time 22.6 sec (22.0-30.0); Prothrombin Time 10.2 sec (9.0-12.0)
[2019-08-10] MEDS ORDERED: NALOXONE 0.4 MG/ML 1 ML VIAL IV PRN (18:59)
[2019-08-10] MEDS: PANTOPRAZOLE 40 MG/10 ML VIAL IV SCH (19:06)
[2019-08-10] MEDS: SODIUM CHLORIDE 0.9% 1,000 ML IV SCH (19:20)
[2019-08-10] MEDS ORDERED: IPRATROPIUM-ALBUTEROL 3 ML NEB INHALATION PRN (21:37)
[2019-08-10] MEDS: HYDROcodone/APAP 7.5-325MG 1 EACH TAB PO PRN (23:16)
[2019-08-10] MEDS: TEMAZEPAM 15 MG CAP PO PRN (23:16)
[2019-08-11] MEDS: IPRATROPIUM-ALBUTEROL 3 ML NEB INHALATION SCH ×4 (00:21→23:27)
[2019-08-11 07:51] LABS: HCT 29.4 % (39.0-53.0); HGB 9.1 gm/dL (13.0-17.5); Hypochromasia Marked; MCH 30.9 pg (25.0-35.0); MCHC 30.8 g/dL (31.0-37.0); MCV 100.2 fL (80.0-100.0); Macrocytosis Slight; Mean Platelet Volume 8.6; Platelet Count 255 k/uL (150-450); RBC 2.93 m/uL (4.30-5.90); RDW 15.1 % (11.5-15.5); WBC 3.8 k/uL (3.8-10.6)
[2019-08-11 08:45] LABS: Eosinophils # (M) 0.15 k/uL (0-0.7); Monocytes # (M) 0.38 k/uL (0-1.0); Neutrophils # (M) 1.67 k/uL (1.3-7.7); Neutrophils % (M) 44 %; Nucleated Red Blood Cells 0 /100 WBC (0-0); Total Cells Counted 100
[2019-08-11] MEDS: ALLOPURINOL 300 MG TAB PO SCH (08:48)
[2019-08-11] MEDS: METOPROLOL SUCCINATE (ER) 25 MG TAB.ER.24H PO SCH (08:48)
[2019-08-11] MEDS: HYDROcodone/APAP 7.5-325MG 1 EACH TAB PO PRN ×2 (08:58→22:48)
[2019-08-11] MEDS: CHOLECALCIFEROL 1,000 UNIT TAB PO SCH (10:00)
[2019-08-11] MEDS: FERROUS SULFATE 325 MG TAB PO SCH ×2 (10:00→21:12)
[2019-08-11] MEDS: HYDROCORTISONE 20 MG TAB PO SCH (10:01)
[2019-08-11] MEDS: POTASSIUM CHLORIDE ER 20 MEQ TAB.ER PO SCH (10:01)
[2019-08-11] MEDS: MULTIVITAMINS, THERA 1 EACH TAB PO SCH (10:01)
[2019-08-11] MEDS: FUROSEMIDE 40 MG TAB PO SCH (10:01)
[2019-08-11] MEDS: PANTOPRAZOLE 40 MG/10 ML VIAL IV SCH (10:31)
[2019-08-11] MEDS: SODIUM CHLORIDE 0.9% 1,000 ML IV SCH (10:33)
--- NOTE | 2019-08-11 13:21 | P.HPIM ---
History of Present Illness 69-year-old pleasant male was sent in here because of anemia hemoglobin was 7.2 and Hemoccult was positive your hemoglobin was about 8 years . Patient has occasional blood-tinged stuff when he wipes after stooling. Patient does have known to have hemorrhoids. Patient doesn't get constipated often. Patient is found to have hemorrhoids that are not actively bleeding patient is on Eliquis for atrial fibrillation. Review of Systems REVIEW OF SYSTEMS: CONSTITUTIONAL: No fever, no malaise, no fatigue. HEENT: No recent visual problems or hearing problems. Denied any sore throat. CARDIOVASCULAR: No chest pain, orthopnea, PND, no palpitations, no syncope. PULMONARY: No shortness of breath, no cough, no hemoptysis. GASTROINTESTINAL: No diarrhea, no nausea, no vomiting, no abdominal pain. NEUROLOGICAL: No headaches, no weakness, no numbness. HEMATOLOGICAL: Denies any bleeding or petechiae. GENITOURINARY: Denies any burning micturition, frequency, or urgency. MUSCULOSKELETAL/RHEUMATOLOGICAL: Denies any joint pain, swelling, or any muscle pain. ENDOCRINE: Denies any polyuria or polydipsia. The rest of the 14-point review of systems is negative. Past Medical History Past Medical History: Atrial Fibrillation, Blood Disorder, Cancer, Osteoar thritis (OA), Pulmonary Embolus (PE) Additional Past Medical History / Comment(s): Afib/RVR, pulmonary embolism L lung, pancreatitis multiple times, ETOH abuse, was diagnosed with R renal carcinoma with cryoablation at [place], [facility], past R lung pneumo with chest tube, diverticulitis, benign colon polyps, arthritis multiple joints, abdominal hernias. Dizziness fall and right rib fractures 09/15/18,. Adrenal insufficiently History of Any Multi-Drug Resistant Organisms: None Reported Past Surgical History: Bariatric Surgery, Bowel Resection, Cholecystectomy, Hernia Repair, Joint Replacement Additional Past Surgical History / Comment(s): Recent (2017) r kidney lesion cryoablation at [facility], 2013 bowel resection d/t viscus perf with colostomy later reversed , gastric sleeve converted to darrell-en-Y 08/2014-post op wound infection, paraesphogeal hiat hernia repair, R inguinal and umbilical hernia repairs, colonoscopies, L total knee arthroplasty., Past Anesthesia/Blood Transfusion Reactions: No Reported Reaction Past Psychological History: No Psychological Hx Reported Additional Psychological History / Comment(s): Pt resides alone. He is independent. He is retired from [employer]. No experience. No travel history. Reformed smoker. History of alcoholism. Denies injection drug use or other recreational drug use. No animals in the home Smoking Status: Former smoker Past Alcohol Use History: None Reported Additional Past Alcohol Use History / Comment(s): SMOKING: FOR 15 YRS, STOPPED, 1987. ETOH: HISTORY OF ABUSE, 6 to 8 mixed drinks per week Past Drug Use History: None Reported - Past Family History Father Family Medical History: COPD, Myocardial Infarction ([place]) Additional Family Medical History / Comment(s): Father from a [place] at the age of 69yrs. Mother Family Medical History: Cancer Additional Family Medical History / Comment(s): Mother from ovarian cancer at the age of 69yrs. Sister(s) Family Medical History: Cancer Additional Family Medical History / Comment(s): at age 74yrs. Had breast cancer and a defibrillator Medications and Allergies Home Medications Medication Instructions Recorded Confirmed Type Allopurinol [Zyloprim] 300 mg PO DAILY@0900 02/22/14 08/10/19 History Cholecalciferol [Vitamin D3 (25 5,000 unit PO DAILY@0900 07/26/14 08/10/19 History Mcg = 1000 Iu)] Midodrine [ProAmatine] 15 mg PO TID@0800,1200,1700 07/25/19 08/10/19 History Temazepam [Restoril] 15 mg PO HS PRN #3 cap 07/27/19 08/10/19 Rx guaiFENesin SYRUP 100MG/5ML 200 mg PO Q6H PRN cup 07/27/19 08/10/19 Rx [Robitussin] Apixaban [Eliquis] 5 mg PO BID@0900,209908/10/19 08/10/19 History Budesonide/Formoterol Fumarate 1 puff INHALATION RT-BID@0900,209908/10/19 08/10/19 History [Symbicort 160-4.5 Mcg Inhaler] Ferrous Gluconate 324 mg PO BID@0900,209908/10/19 08/10/19 History Furosemide [Lasix] 40 mg PO DAILY@0900 08/10/19 08/10/19 History HYDROcodone/APAP 7.5-325MG [[place] 1 tab PO BID PRN 08/10/19 08/10/19 History 7.5-325] Hydrocortisone [Cortef] 10 mg PO HS@2100 08/10/19 08/10/19 History Hydrocortisone [Cortef] 20 mg PO DAILY@0900 08/10/19 08/10/19 History Ipratropium-Albuterol Nebulize 3 ml INHALATION RT-Q8H 08/10/19 08/10/19 History [Duoneb 0.5 mg-3 mg/3 ml Soln] Ipratropium-Albuterol Nebulize 3 ml INHALATION RT-Q8H PRN 08/10/19 08/10/19 H istory [Duoneb 0.5 mg-3 mg/3 ml Soln] Metoprolol Succinate [Toprol XL] 25 mg PO DAILY@0900 08/10/19 08/10/19 History Multivitamin [Men's Multi-Vitamin] 1 tab PO DAILY@0900 08/10/19 08/10/19 History Pantoprazole Sodium [Protonix] 40 mg PO BID@0900,2100 08/10/19 08/10/19 History Potassium Chloride ER [K-Dur 20] 40 meq PO DAILY@0900 08/10/19 08/10/19 History Allergies Allergy/AdvReac Type Severity Reaction Status Date / Time No Known Allergies Allergy Verified 08/10/19 19:50 Physical Exam Vitals: Vital Signs Temp Pulse Pulse Resp BP BP Pulse Ox 08/11/19 07:48 63 08/11/19 07:38 60 08/11/19 07:34 97.9 F 61 18 141/61 08/11/19 00:52 97.4 F L 68 18 125/71 95 08/11/19 00:32 68 08/11/19 00:22 68 08/10/19 19:48 98.0 F 69 18 161/77 98 08/10/19 19:00 59 L 138/79 98 08/10/19 18:30 59 L 154/80 98 08/10/19 18:00 54 L 157/86 98 08/10/19 17:30 153/96 98 08/10/19 17:20 99 08/10/19 17:17 97.6 F 87 18 153/96 99 Intake and Output 08/10/19 08/11/19 08/11/19 22:59 06:59 14:59 Intake Total 75 525 Balance 75 525 Intake: Intake, IV Titration 75 525 Amount Sodium Chloride 0.9% 1, 75 525 000 ml @ 75 mls/hr IV . [id number] [facility] Rx#:[id number] Other: Weight 106.594 kg 105.6 kg PHYSICAL EXAMINATION: GENERAL: The patient is alert and oriented x3, not in any acute distress. Well developed, well nourished. HEENT: Pupils are round and equally reacting to light. EOMI. No scleral icterus. Does have conjunctival pallor. Normocephalic, atraumatic. No pharyngeal erythema. No thyromegaly. CARDIOVASCULAR: S1 and S2 present. No murmurs, rubs, or gallops. PULMONARY: Chest is clear to auscultation, no wheezing or crackles. ABDOMEN: Soft, nontender, nondistended, normoactive bowel sounds. No palpable organomegaly. MUSCULOSKELETAL: No joint swelling or deformity. EXTREMITIES: No cyanosis, clubbing, does have pedal edema 2+ which is chronic much better than usual NEUROLOGICAL: Gross neurological examination did not reveal any focal deficits. SKIN: No rashes. Results CBC & Chem 7: 08/11/19 06:41 08/10/19 17:45 Labs: Abnormal Lab Results - Last 24 Hours (Table) 08/10/19 08/10/19 08/11/19 Range/Units 17:45 17:45 06:41 RBC 2.74 L 2.93 L (4.30-5.90) m/uL Hgb 8.5 L 9.1 L (13.0-17.5) gm/dL Hct 27.0 L 29.4 L (39.0-53.0) % MCV 100.2 H (80.0-100.0) fL MCHC 30.8 L (31.0-37.0) g/dL Chloride 108 H (98-107) mmol/L Alkaline Phosphatase 135 H (38-126) U/L Total Protein 5.1 L (6.3-8.2) g/dL Albumin 2.5 L (3.5-5.0) g/dL Thrombosis Risk Factor Assmnt - Choose All That Apply Any of the Below Risk Factors Present?: No Other Risk Factors: Yes Each Risk Factor Represents 2 Points: Age 61-74 years Other congenital or acquired thrombophilia - If yes, enter type in comment: No Thrombosis Risk Factor Assessment Total Risk Factor Score: 2 Thrombosis Risk Factor Assessment Level: Low Risk Assessment and Plan Plan: -Anemia with the mild acute bleed on and off: Secondary to hemorrhoids no further intervention at this time gastric body evaluate the patient will monitor him overnight here possibility of discharge tomorrow patient did not receive a blood transfusion and his hemoglobin is 9.1 today. Patient probably will be discharged tomorrow depending on GI opinion. Patient can be resumed on Eliquis upon discharge. -Atrial fibrillation presently rate controlled and patient is on Eliquis which will be resumed upon discharge and being held with the possibility of GI bleed although there is no significant evidence for overt GI bleed at this time. -Pulmonary embolism history -Congestive heart failure chronic diastolic dysfunction without any acute exacerbation patient was resumed on his home dose of Lasix and IV fluids were discontinued
[2019-08-11 17:10] LABS: Reticulocyte % 2.2 % (0.5-2.0)
[2019-08-11] MEDS ORDERED: HYDROCORTISONE 10 MG TAB PO SCH (21:00)
--- NOTE | 2019-08-11 21:13 | CONS ---
CONSULTATION DATE OF DICTATION: August 11, 2019. REQUESTING PHYSICIAN: Dr. Ontiveros. REASON FOR CONSULTATION: Anemia. HISTORY OF PRESENT ILLNESS: The patient is a 69-year-old pleasant white male who was recently admitted to the hospital with pneumonia and was discharged to rehab to [facility] on the [place]. While he was here, he had routine labs done and showed a hemoglobin of 7.8, and he was admitted. He was sent to [facility] and was subsequently admitted to the hospital. Repeat labs over here showed a hemoglobin of 9.5 g/dL. The patient however denies any abdominal pain. He reports no nausea vomiting denies any rectal bleeding or melena. He does have intermittent rectal bleeding when he wipes after a bowel movement, possibly from hemorrhoids. He has been admitted in the past with recurrent anemia. He had an EGD and colonoscopy in [address] Jimenes which was unremarkable. In November of this year, he had a small bowel capsule endoscopy done that was unremarkable. The patient has history of atrial fibrillation and has been on Eliquis for 5 years which is currently on hold. PAST MEDICAL HISTORY: Significant for atrial fibrillation, degenerative joint disease, history of DVT and PE in the past, alcohol abuse, benign prostatic hypertrophy. PAST SURGICAL HISTORY: Cholecystectomy, bariatric surgery, hernia repair, right kidney lesion cryoablation, bowel resection, umbilical hernia repair. MEDICATIONS: At home include midodrine, Restoril, Robitussin, Eliquis, Symbicort, Lasix, iron, [place], Cortef, albuterol, metoprolol, multivitamin, Protonix, Zyloprim. ALLERGIES: None. SOCIAL HISTORY: Remote history of smoking. No alcohol use. FAMILY HISTORY: Father had coronary artery disease and COPD. Mother had ovarian cancer. REVIEW OF SYSTEMS: CARDIOPULMONARY: He denies any chest pain, shortness of breath. GENITOURINARY: No dysuria or hematuria. MUSCULOSKELETAL: He complains of chronic back pain. NEUROLOGY unremarkable. PSYCHIATRIC unremarkable. ENT/vision unremarkable. CONSTITUTIONAL: No recent weight loss. No fever, chills, night sweats. HEMATOLOGY: Anemia. ENDOCRINE unremarkable. PHYSICAL EXAMINATION: He appears comfortable. No apparent distress. Vital signs stable. Blood pressure is 145/81, pulse is 69, temperature 98.2. HEENT: examination unremarkable. Conjunctivae pink. Sclerae anicteric. Oral cavity no lesions. NECK: No JVD or lymph node enlargement. CHEST: The chest was clear to auscultation. HEART: Regular rate and rhythm. ABDOMEN: Soft, it was nontender, nondistended. Bowel sounds are positive. No organomegaly. EXTREMITIES: No pedal edema. SKIN no rashes. NEUROLOGIC: Alert and oriented x3. No focal deficits. LABS: WBC 3.5, hemoglobin 9.1, platelets normal. Basic metabolic panel is within normal limits. Stool Hemoccult apparently was positive. IMPRESSION: 1. Macrocytic anemia. Clinically no evidence of active gastrointestinal bleed. Apparently, he had stool that was Hemoccult positive. The patient is on Eliquis for atrial fibrillation which is currently on hold. As mentioned above, he had an EGD colonoscopy in 2017 for evaluation of anemia that was unremarkable. A small bowel capsule endoscopy in November of this year was also unremarkable. The patient most likely may have a component of occult gastrointestinal blood loss exacerbated by ongoing anticoagulation. 2. Atrial fibrillation on Eliquis, currently on hold. 3. History of chronic obstructive pulmonary disease. RECOMMENDATIONS: 1. Start him on a regular diet. 2. Repeat CBC in the morning. 3. Obtain iron studies. 4. If the hemoglobin is stable, he can be discharged home with outpatient followup in 2-3 weeks. 5. No plans for any endoscopy intervention at the present time. Thank you for this consultation. MMODL / IJN: [id number] /
[2019-08-11] MEDS: TEMAZEPAM 15 MG CAP PO PRN (22:48)
[2019-08-12 01:34] LABS: % Iron Saturation 5.56 (15.00-50.00); Ferritin 26.2 ng/mL (22.0-322.0)
[2019-08-12 01:35] LABS: Folate, Serum 21.3 ng/mL
[2019-08-12 07:27] LABS: Hypochromasia Moderate; MCH 30.5 pg (25.0-35.0); MCHC 30.9 g/dL (31.0-37.0); MCV 98.6 fL (80.0-100.0); Mean Platelet Volume 8.4; Platelet Count 208 k/uL (150-450); RBC 2.63 m/uL (4.30-5.90); RDW 15.1 % (11.5-15.5); WBC 3.3 k/uL (3.8-10.6)
[2019-08-12] MEDS: IPRATROPIUM-ALBUTEROL 3 ML NEB INHALATION SCH ×2 (07:29→16:34)
[2019-08-12 07:48] LABS: Calcium 8.5 mg/dL (8.4-10.2)
[2019-08-12 07:56] VITALS: BP 115/75; PULSE 81; RESP 17; TEMP 97.7
[2019-08-12] MEDS: PANTOPRAZOLE 40 MG/10 ML VIAL IV SCH (09:02)
[2019-08-12] MEDS: METOPROLOL SUCCINATE (ER) 25 MG TAB.ER.24H PO SCH (09:20)
[2019-08-12] MEDS: CHOLECALCIFEROL 1,000 UNIT TAB PO SCH (09:21)
[2019-08-12] MEDS: POTASSIUM CHLORIDE ER 20 MEQ TAB.ER PO SCH (09:21)
[2019-08-12] MEDS: FUROSEMIDE 40 MG TAB PO SCH (09:21)
[2019-08-12] MEDS: ALLOPURINOL 300 MG TAB PO SCH (09:22)
[2019-08-12] MEDS: MULTIVITAMINS, THERA 1 EACH TAB PO SCH (09:22)
[2019-08-12] MEDS: FERROUS SULFATE 325 MG TAB PO SCH (09:35)
[2019-08-12] MEDS: HYDROcodone/APAP 7.5-325MG 1 EACH TAB PO PRN (10:17)
[2019-08-12] MEDS: HYDROCORTISONE 20 MG TAB PO SCH (10:18)
[2019-08-12] MEDS ORDERED: CYANOCOBALAMIN 1,000 MCG/ML 1 ML VIAL IM ONE (12:00)
--- NOTE | 2019-08-12 13:36 | P.DS ---
Providers Date of admission: 08/10/19 18:59 Attending physician: Katherin Ontiveros Consults: 08/10/19 18:59 Consult Physician Urgent Consulting Provider: Tameka Emanuel Consult Reason/Comments: gi hemorrhage Do you want consulting provider notified?: Yes Primary care physician: Rebekah Hood [facility] Course: 69-year-old pleasant male was sent in here because of anemia hemoglobin was 7.2 and Hemoccult was positive your hemoglobin was about 8 years . Patient has occasional blood-tinged stuff when he wipes after stooling. Patient does have known to have hemorrhoids. Patient doesn't get constipated often. Patient is found to have hemorrhoids that are not actively bleeding patient is on Eliquis for atrial fibrillation. 08/12/2019 No overnight events patient is clinically doing well no signs or symptoms of for GI bleed at this time patient will be resumed on Eliquis and will be discharged today. Patient's B12 levels are low will order a B12 injection and patient is taking multivitamins at home. PHYSICAL EXAMINATION: GENERAL: The patient is alert and oriented x3, not in any acute distress. Well developed, well nourished. HEENT: Pupils are round and equally reacting to light. EOMI. No scleral icterus. Does have conjunctival pallor. Normocephalic, atraumatic. No pharyngeal erythema. No thyromegaly. CARDIOVASCULAR: S1 and S2 present. No murmurs, rubs, or gallops. PULMONARY: Chest is clear to auscultation, no wheezing or crackles. ABDOMEN: Soft, nontender, nondistended, normoactive bowel sounds. No palpable organomegaly. MUSCULOSKELETAL: No joint swelling or deformity. EXTREMITIES: No cyanosis, clubbing, does have pedal edema 2+ which is chronic much better than usual NEUROLOGICAL: Gross neurological examination did not reveal any focal deficits. SKIN: No rashes. Assessment and Plan Plan: -Anemia with the mild acute bleed on and off: Secondary to hemorrhoids no further intervention at this time gastroneurology evaluated the patient patient doesn't have any signs or symptoms of acute GI bleed at this time and patient will resume his Eliquis -Atrial fibrillation presently rate controlled and patient is on Eliquis -Pulmonary embolism history -Congestive heart failure chronic diastolic dysfunction without any acute exacerbation patient was resumed on his home dose of Lasix . Plan - Discharge Summary Discharge Rx Participant: No New Discharge Prescriptions: New Multivitamins, Thera [Multivitamin (formulary)] 1 each PO DAILY@0900 #30 tab Polyethylene Glycol 3350 [Miralax] 17 gm PO DAILY PRN #15 packet PRN Reason: Constipation Continue Hydrocortisone [Cortef] 10 mg PO HS@2100 Ipratropium-Albuterol Nebulize [Duoneb 0.5 mg-3 mg/3 ml Soln] 3 ml INHALATION RT-Q8H PRN PRN Reason: Shortness Of Breath Or Wheezing Multivitamin [Men's Multi-Vitamin] 1 tab PO DAILY@0900 Hydrocortisone [Cortef] 20 mg PO DAILY@0900 #30 tab Ipratropium-Albuterol Nebulize [Duoneb 0.5 mg-3 mg/3 ml Soln] 3 ml INHALATION RT-Q8H #60 neb Apixaban [Eliquis] 5 mg PO BID@899,2099 #30 tab Ferrous Gluconate 324 mg PO BID@899,2099 #30 tab Potassium Chloride ER [K-Dur 20] 40 meq PO DAILY@0900 #30 tab Furosemide [Lasix] 40 mg PO DAILY@0900 #30 tab Midodrine [ProAmatine] 15 mg PO TID@0800,1200,1700 #60 tab Budesonide/Formoterol Fumarate [Symbicort 160-4.5 Mcg Inhaler] 1 puff INHALATION RT-BID@0900,2100 #1 inhaler Metoprolol Succinate [Toprol XL] 25 mg PO DAILY@0900 #30 tab Cholecalciferol [Vitamin D3 (25 Mcg = 1000 Iu)] 5,000 unit PO DAILY@0900 #30 tab Allopurinol [Zyloprim] 300 mg PO DAILY@0900 #30 tab Changed Pantoprazole Sodium [Protonix] 40 mg PO DAILY #30 tab Discontinued Temazepam [Restoril] 15 mg PO HS PRN #3 cap PRN Reason: Insomnia guaiFENesin SYRUP 100MG/5ML [Robitussin] 200 mg PO Q6H PRN cup PRN Reason: Cough HYDROcodone/APAP 7.5-325MG [[place] 7.5-325] 1 tab PO BID PRN PRN Reason: Pain Discharge Medication List Hydrocortisone [Cortef] 10 mg PO HS@2100 08/10/19 [History] Ipratropium-Albuterol Nebulize [Duoneb 0.5 mg-3 mg/3 ml Soln] 3 ml INHALATION RT-Q8H PRN 08/10/19 [History] Multivitamin [Men's Multi-Vitamin] 1 tab PO DAILY@0900 08/10/19 [History] Allopurinol [Zyloprim] 300 mg PO DAILY@0900 #30 tab 08/12/19 [Rx] Apixaban [Eliquis] 5 mg PO BID@0900,2100 #30 tab 08/12/19 [Rx] Budesonide/Formoterol Fumarate [Symbicort 160-4.5 Mcg Inhaler] 1 puff INHALATION RT-BID@899,2099 #1 inhaler 08/12/19 [Rx] Cholecalciferol [Vitamin D3 (25 Mcg = 1000 Iu)] 5,000 unit PO DAILY@0900 #30 tab 08/12/19 [Rx] Ferrous Gluconate 324 mg PO BID@0900,2100 #30 tab 08/12/19 [Rx] Furosemide [Lasix] 40 mg PO DAILY@0900 #30 tab 08/12/19 [Rx] Hydrocortisone [Cortef] 20 mg PO DAILY@0900 #30 tab 08/12/19 [Rx] Ipratropium-Albuterol Nebulize [Duoneb 0.5 mg-3 mg/3 ml Soln] 3 ml INHALATION RT-Q8H #60 neb 08/12/19 [Rx] Metoprolol Succinate [Toprol XL] 25 mg PO DAILY@0900 #30 tab 08/12/19 [Rx] Midodrine [ProAmatine] 15 mg PO TID@0800,1200,1700 #60 tab 08/12/19 [Rx] Multivitamins, Thera [Multivitamin (formulary)] 1 each PO DAILY@0900 #30 tab 08/12/19 [Rx] Pantoprazole Sodium [Protonix] 40 mg PO DAILY #30 tab 08/12/19 [Rx] Polyethylene Glycol 3350 [Miralax] 17 gm PO DAILY PRN #15 packet 08/12/19 [Rx] Potassium Chloride ER [K-Dur 20] 40 meq PO DAILY@0900 #30 tab 08/12/19 [Rx] Follow up Appointment(s)/Referral(s): Rebekah Hood DO [Primary Care Provider] - 08/15/19 10:20 am Discharge Disposition: HOME WITH HOME HEALTH SERVICES
== END 2019-08-12 17:19 | disposition home health service (06) ==
LOC: EC 17:15 → 4SSUR 18:59
PROVIDERS: ADMIT Internal Medicine; ATTEND Internal Medicine
DX: K64.9 Unspecified hemorrhoids (principal); D62 Acute posthemorrhagic anemia; I48.91 Unspecified atrial fibrillation; I50.32 Chronic diastolic (congestive) heart failure; J44.9 Chronic obstructive pulmonary disease, unspecified; N40.0 Benign prostatic hyperplasia without lower urinary tract symptoms; Z79.01 Long term (current) use of anticoagulants; Z79.51 Long term (current) use of inhaled steroids; Z79.899 Other long term (current) drug therapy; Z80.3 Family history of malignant neoplasm of breast; Z80.41 Family history of malignant neoplasm of ovary; Z82.49 Family history of ischemic heart disease and other diseases of the circulatory system; Z82.5 Family history of asthma and other chronic lower respiratory diseases; Z85.528 Personal history of other malignant neoplasm of kidney; Z86.711 Personal history of pulmonary embolism; Z86.718 Personal history of other venous thrombosis and embolism; Z87.19 Personal history of other diseases of the digestive system; Z87.891 Personal history of nicotine dependence; Z93.3 Colostomy status; Z96.652 Presence of left artificial knee joint; Z98.84 Bariatric surgery status; Z90.49 Acquired absence of other specified parts of digestive tract
CPT/HCPCS: 96376 ×2; 96361 ×2; 96372; 96374; 99285; 36415; 94640 ×3; 97161; 97166; 86900; 86901; 80053; 80048; 82607; 82728; 82746; 83540; 83550; 83735; 85025 ×2; 85027; 85610; 85045; 85730; 86850; G0378 ×3; J3420; C9113 ×3

== ENCOUNTER 2019-09-04 10:40 | Emergency (ER) | payer MEDICARE, OTHER ==
[2019-09-04] MEDS ORDERED: KETOROLAC 30 MG/ML 1 ML VIAL IM STA (11:03)
--- NOTE | 2019-09-04 11:11 | ED ---
Back Pain HPI - General Chief Complaint: Back Pain/Injury Stated Complaint: Rib injury Time Seen by Provider: 09/04/19 10:53 Source: patient Limitations: no limitations - History of Present Illness Initial Comments: Patient is 69-year-old male presenting to emergency Department with a chief complaint of rib pain. Patient reports about 4 days ago a tailgate follow left side of his torso: Some bruising. Patient didn't think much of it and continued about his day. He reports over the last few days she developed increasing pain in the region with some bruising. Patient does report a cough but no shortness of breath or chest pain. Reports the pain is exacerbated with ambulation, left and right rotation and full inspiration. He denies taking medication to alleviate the symptoms. - Related Data Home Medications Medication Instructions Recorded Confirmed Hydrocortisone [Cortef] 10 mg PO HS@209908/10/19 08/10/19 Multivitamin [Men's Multi-Vitamin] 1 tab PO DAILY@0900 08/10/19 08/10/19 Previous Rx's Medication Instructions Recorded Albuterol Inhaler [Ventolin Hfa 1 - 2 puff INHALATION RT-Q6H PRN 08/12/19 Inhaler] 30 Days #1 inhaler Allopurinol [Zyloprim] 300 mg PO DAILY@0900 #30 tab 08/12/19 Apixaban [Eliquis] 5 mg PO BID@0900,2100 #30 tab 08/12/19 Budesonide/Formoterol Fumarate 1 puff INHALATION RT-BID@0900,209908/12/19 [Symbicort 160-4.5 Mcg Inhaler] #1 inhaler Cholecalciferol [Vitamin D3 (25 5,000 unit PO DAILY@0900 #30 tab 08/12/19 Mcg = 1000 Iu)] Ferrous Gluconate 324 mg PO BID@0900,2100 #30 tab 08/12/19 Furosemide [Lasix] 40 mg PO DAILY@0900 #30 tab 08/12/19 Hydrocortisone [Cortef] 20 mg PO DAILY@0900 #30 tab 08/12/19 Metoprolol Succinate [Toprol XL] 25 mg PO DAILY@0900 #30 tab 08/12/19 Midodrine [ProAmatine] 15 mg PO TID@0800,1200,1700 #60 tab 08/12/19 Multivitamins, Thera [Multivitamin 1 each PO DAILY@0900 #30 tab 08/12/19 (formulary)] Pantoprazole Sodium [Protonix] 40 mg PO DAILY #30 tab 08/12/19 Polyethylene Glycol 3350 [Miralax] 17 gm PO DAILY PRN #15 packet 08/12/19 Potassium Chloride ER [K-Dur 20] 40 meq PO DAILY@0900 #30 tab 08/12/19 Tiotropium 18 Mcg/Puff [Spiriva] 1 puff INHALATION DAILY 30 Days #1 08/12/19 device Cyclobenzaprine [Flexeril] 5 mg PO TID PRN #15 tablet 09/04/19 Allergies Allergy/AdvReac Type Severity Reaction Status Date / Time No Known Allergies Allergy Verified 09/04/19 10:46 Review of Systems ROS Statement: Those systems with pertinent positive or pertinent negative responses have been documented in the HPI. ROS Other: All systems not noted in ROS Statement are negative. Past Medical History Past Medical History: Atrial Fibrillation, Blood Disorder, Cancer, Osteoarthritis (OA), Pulmonary Embolus (PE) Additional Past Medical History / Comment(s): Afib/RVR, pulmonary embolism L lung, pancreatitis multiple times, ETOH abuse, was diagnosed with R renal carcinoma with cryoablation at [place], [facility], past R lung pneumo with chest tube, diverticulitis, benign colon polyps, arthritis multiple joints, abdominal hernias. Dizziness fall and right rib fractures 09/15/18,. Adrenal insufficiently History of Any Multi-Drug Resistant Organisms: None Reported Past Surgical History: Bariatric Surgery, Bowel Resection, Cholecystectomy, Hernia Repair, Joint Replacement Additional Past Surgical History / Comment(s): Recent (2017) r kidney lesion cryoablation at [facility], 2013 bowel resection d/t viscus perf with colostomy later reversed , gastric sleeve converted to darrell-en-Y 08/2014-post op wound infection, paraesphogeal hiat hernia repair, R inguinal and umbilical hernia repairs, colonoscopies, L total knee arthroplasty., Past Anesthesia/Blood Transfusion Reactions: No Reported Reaction Past Psychological History: No Psychological Hx Reported Smoking Status: Former smoker Past Alcohol Use History: None Reported Past Drug Use History: None Reported - Past Family History Father Family Medical History: COPD, Myocardial Infarction (NE) Additional Family Medical History / Comment(s): Father from a NE at the age of 69yrs. Mother Family Medical History: Cancer Additional Family Medical History / Comment(s): Mother from ovarian cancer at the age of 69yrs. Sister(s) Family Medical History: Cancer Additional Family Medical History / Comment(s): at age 74yrs. Had breast cancer and a defibrillator General Exam Limitations: no limitations General appearance: alert, in no apparent distress, obese Head exam: Present: atraumatic, normocephalic, normal inspection Eye exam: Present: normal appearance Pupils: Present: normal accommodation ENT exam: Present: normal exam, normal oropharynx, mucous membranes moist, TM's normal bilaterally, normal external ear exam Neck exam: Present: normal inspection, full ROM Respiratory exam: Present: normal lung sounds bilaterally, chest wall tenderness. Absent: respiratory distress, wheezes, rales Cardiovascular Exam: Present: regular rate, normal rhythm, normal heart sounds GI/Abdominal exam: Present: soft, tenderness (Upper left flank pain with some bruising in the region.). Absent: distended Extremities exam: Present: normal inspection, full ROM Back exam: Present: normal inspection, full ROM Neurological exam: Present: alert, oriented X3 Psychiatric exam: Present: normal affect, normal mood Skin exam: Present: warm, dry, intact, normal color Course Vital Signs 09/04/19 10:42 Temperature 97.7 F Pulse Rate 76 Respiratory 20 Rate Blood Pressure 121/71 O2 Sat by Pulse 98 Oximetry Medical Decision Making - Medical Decision Making Patient is 69-year-old male presenting to the emergency Department with chief complaint of rib pain. He states about 4 days ago tell you fell on him and cause some injury to his left flank region. On exam patient has some ecchymosis in the upper left flank region with tenderness to palpation. He has cough but no shortness of breath or chest pain. X-ray shows no signs of damage to the ribs. That show basilar disease and borderline cardiomegaly. Patient is aware of the previously established conditions. Patient given Flexeril and advised about the possible side effects of the medication. He was advised to alternate between Tylenol and ibuprofen for pain control. He was advised to apply ice compress to minimize his symptoms. Patient asked to follow with primary care. Case discussed with physician. Disposition Clinical Impression: Blunt trauma of rib Disposition: ADMITTED IP TO THIS [facility] Condition: Stable Instructions (If sedation given, give patient instructions): Flank Pain (ED) Additional Instructions: Please take prescribed medication as directed. Alternate between Tylenol and ibuprofen for pain control. Please return to emergency department if symptoms worsen. Prescriptions: Cyclobenzaprine [Flexeril] 5 mg PO TID PRN #15 tablet PRN Reason: Muscle Spasm Is patient prescribed a controlled substance at d/c from ED?: No Referrals: Rebekah Hood DO [Primary Care Provider] - 1-2 days Time of Disposition: 12:09
--- NOTE | 2019-09-04 11:36 | XR ---
EXAMINATION TYPE: XR ribs LT w pa chest xray , 5 VIEWS DATE OF EXAM ORDERED: 09/04/2019 HISTORY: trauma, left sided bruising . COMPARISON: Previous chest x-ray dated 07/24/2019. FINDINGS: There is bibasilar airspace disease. There are small bilateral effusions. The heart is upp er limits of normal in size. No definite displaced rib fractures seen. There is no evidence of pneumothorax. IMPRESSION: 1. NO DEFINITE DISPLACED RIB FRACTURES IDENTIFIED. 2. BIBASILAR AIRSPACE DISEASE. 3. SMALL, BILATERAL EFFUSIONS. 4. BORDERLINE CARDIOMEGALY.
[2019-09-04] MEDS ORDERED: CYCLOBENZAPRINE 10MG STARTER 3 TAB BTL PO STA (11:54)
[2019-09-04 12:16] VITALS: BP 118/78; PULSE 67; RESP 16; TEMP 98
== END 2019-09-04 12:16 | disposition other institution (70) ==
LOC: EC 10:40
DX: S29.9XXA Unspecified injury of thorax, initial encounter (principal); S30.1XXA Contusion of abdominal wall, initial encounter; I51.7 Cardiomegaly; I48.91 Unspecified atrial fibrillation; E27.40 Unspecified adrenocortical insufficiency; M19.90 Unspecified osteoarthritis, unspecified site; Z87.891 Personal history of nicotine dependence; Z79.01 Long term (current) use of anticoagulants; Z79.52 Long term (current) use of systemic steroids; Z85.528 Personal history of other malignant neoplasm of kidney; Z87.81 Personal history of (healed) traumatic fracture; Z96.652 Presence of left artificial knee joint; Z98.84 Bariatric surgery status; Z90.49 Acquired absence of other specified parts of digestive tract; Z98.890 Other specified postprocedural states; W20.8XXA Other cause of strike by thrown, projected or falling object, initial encounter
CPT/HCPCS: 71101; 99284; 96372; J1885

== ENCOUNTER 2019-09-19 17:43 | Inpatient (IN) | payer MEDICARE ==
--- NOTE | 2019-09-19 18:06 | ED ---
Weakness HPI - General Chief complaint: Weakness Stated complaint: Weakness Time Seen by Provider: 09/19/19 17:53 Source: EMS Mode of arrival: EMS Limitations: physical limitation - History of Present Illness Initial comments: This 69-year-old white male presents with a complaint of some weakness to his bilateral legs with the left leg being worse in the right leg. He relates that he first noticed this upon waking this morning at approximately 8 AM. He states that he almost fell getting out of bed. He was able to get around the house with his walker throughout the day but it was somewhat difficult. He states that he then later fell tonight shortly prior to arrival and was unable to get up. He rolled around on the ground for several hours. He denies obtaining any injuries. He did not hit his head. He denies any known vascular problems p reviously. He denies any history of CVA or TIA. He states that he has been doing overall fairly well over the past several days. He denies any recent illnesses or fevers. There's been no urinary symptoms there's been no chest pain or shortness of breath. No other complaints or modifying factors. It appears that his upper extremities are unaffected. He does complain of some numbness to his bilateral lower extremities as well as the left leg being worse in the right. There is no other paresthesias. - Related Data Home Medications Medication Instructions Recorded Confirmed Hydrocortisone [Cortef] 10 mg PO HS@2100 08/10/19 09/19/19 Cyclobenzaprine [Flexeril] 10 mg PO DAILY PRN 09/19/19 09/19/19 Metoprolol Tartrate 25 mg PO BID 09/19/19 09/19/19 Pantoprazole Sodium [Protonix] 40 mg PO BID 09/19/19 09/19/19 Previous Rx's Medication Instructions Recorded Allopurinol [Zyloprim] 300 mg PO DAILY@0900 #30 tab 08/12/19 Apixaban [Eliquis] 5 mg PO BID@0900,2100 #30 tab 08/12/19 Cholecalciferol [Vitamin D3 (25 5,000 unit PO DAILY@0900 #30 tab 08/12/19 Mcg = 1000 Iu)] Ferrous Gluconate 324 mg PO BID@0900,2100 #30 tab 08/12/19 Furosemide [Lasix] 40 mg PO DAILY@0900 #30 tab 08/12/19 Hydrocortisone [Cortef] 20 mg PO DAILY@0900 #30 tab 08/12/19 Midodrine [ProAmatine] 15 mg PO TID@0800,1200,1700 #60 tab 08/12/19 Multivitamins, Thera [Multivitamin 1 each PO DAILY@0900 #30 tab 08/12/19 (formulary)] Potassium Chloride ER [K-Dur 20] 40 meq PO DAILY@0900 #30 tab 08/12/19 Allergies Allergy/AdvReac Type Severity Reaction Status Date / Time No Known Allergies Allergy Verified 09/19/19 18:30 Review of Systems ROS Statement: Those systems with pertinent positive or pertinent negative responses have been documented in the HPI. ROS Other: All systems not noted in ROS Statement are negative. Past Medical History Past Medical History: Atrial Fibrillation, Blood Disorder, Cancer, Osteoarthritis (OA), Pulmonary Embolus (PE) Additional Past Medical History / Comment(s): Afib/RVR, pulmonary embolism L lung, pancreatitis multiple times, ETOH abuse, was diagnosed with R renal carcinoma with cryoablation at [place], [facility], past R lung pneumo with chest tube, diverticulitis, benign colon polyps, arthritis multiple joints, abdominal hernias. Dizziness fall and right rib fractures 09/15/18,. Adrenal insufficiently History of Any Multi-Drug Resistant Organisms: None Reported Past Surgical History: Bariatric Surgery, Bowel Resection, Cholecystectomy, Hernia Repair, Joint Replacement Additional Past Surgical History / Comment(s): Recent (2017) r kidney lesion cryoablation at [facility], [facility] bowel resection d/t viscus perf with colostomy later reversed , gastric sleeve converted to darrell-en-Y 08/2014-post op wound infection, paraesphogeal hiat hernia repair, R inguinal and umbilical hernia repairs, colonoscopies, L total knee arthroplasty., Past Anesthesia/Blood Transfusion Reactions: No Reported Reaction Past Psychological History: No Psychological Hx Reported Smoking Status: Former smoker Past Alcohol Use History: None Reported Past Drug Use History: None Reported - Past Family History Father Family Medical History: COPD, Myocardial Infarction (NH) Additional Family Medical History / Comment(s): Father from a NH at the age of 69yrs. Mother Family Medical History: Cancer Additional Family Medical History / Comment(s): Mother from ovarian cancer at the age of 69yrs. Sister(s) Family Medical History: Cancer Additional Family Medical History / Comment(s): at age 74yrs. Had breast cancer and a defibrillator General Exam - General Exam Comments Initial Comments: GENERAL: The patient is well nourished and well hydrated. VITAL SIGNS: Heart rate, blood pressure, respiratory rate reviewed as recorded in nurse's notes. EYES: Pupils are round and reactive. Extraocular movements are intact. No conjunctival / lid redness or swelling. ENT: No external evidence of injury, swelling, or ecchymosis. Airway is patent. Throat is clear. NECK: Nontender. No swelling or evidence of injury. No subcutaneous emphysema. Trachea is midline. No thyroid mass. HEART: Regular rate and rhythm. Good peripheral pulses. LUNGS/CHEST: Breath sounds clear and equal bilaterally. No rales, rhonchi, or wheezes. No ecchymosis, subcutaneous emphysema, or tenderness. ABDOMEN: Abdomen soft without tenderness. No palpable masses or organomegaly. No peritoneal signs. No abdominal wall swelling or ecchymosis. EXTREMITIES: No extremity tenderness. Normal muscle tone and function. No thoracolumbar tenderness. NEUROLOGIC: Subjective numbness noted to bilateral lower extremities worse on the left. There is also some weakness noted to the left lower extremity with strengthening at approximately 3-5 left leg. Right leg appears to be normal with strength. Upper extremity strength is intact. Cranial nerve exam reveals face is symmetrical, tongue is midline, speech is clear. SKIN: No abrasions or ecchymosis is noted. No induration or masses noted. PSYCHIATRIC: Alert and oriented. Appropriate behavior and judgment. Limitations: physical limitation Course Vital Signs 09/19/19 09/19/19 17:50 19:52 Temperature 97.6 F 98.1 F Pulse Rate 80 86 Respiratory 19 20 Rate Blood Pressure 125/70 128/77 O2 Sat by Pulse 97 97 Oximetry Medical Decision Making - Medical Decision Making The patient was seen and examined. All diagnostics are reviewed. The EKG shows an atrial fibrillation rhythm with a heart rate of 86. There is some low voltage. There is nonspecific ST-T wave abnormalities. Occasional PVC is noted. The MA intervals 140, QRS duration 76, and the QTC intervals 447. - Lab Data Result diagrams: 09/19/19 17:59 09/19/19 17:59 Lab Results 09/19/19 09/19/19 09/19/19 Range/Units 17:59 17:59 17:59 WBC 4.9 (3.8-10.6) k/uL RBC 2.98 L (4.30-5.90) m/uL Hgb 9.2 L (13.0-17.5) gm/dL Hct 29.0 L (39.0-53.0) % MCV 97.1 (80.0-100.0) fL MCH 31.0 (25.0-35.0) pg MCHC 31.9 (31.0-37.0) g/dL RDW 20.3 H (11.5-15.5) % Plt Count 238 (150-450) k/uL Neutrophils % 71 % Lymphocytes % 18 % Monocytes % 8 % Eosinophils % 1 % Basophils % 0 % Neutrophils # 3.4 (1.3-7.7) k/uL Lymphocytes # 0.9 L (1.0-4.8) k/uL Monocytes # 0.4 (0-1.0) k/uL Eosinophils # 0.0 (0-0.7) k/uL Basophils # 0.0 (0-0.2) k/uL Hypochromasia Moderate Anisocytosis Moderate Macrocytosis Slight PT (9.0-12.0) sec INR (<1.2) APTT (22.0-30.0) sec Sodium 142 (137-145) mmol/L Potassium 3.4 L (3.5-5.1) mmol/L Chloride 112 H (98-107) mmol/L Carbon Dioxide 24 (22-30) mmol/L Anion Gap 6 mmol/L BUN 15 (9-20) mg/dL Creatinine 1.11 (0.66-1.25) mg/dL Est GFR (CKD-EPI)AfAm 79 (>60 ml/min/1.73 sqM) Est GFR (CKD-EPI)NonAf 68 (>60 ml/min/1.73 sqM) Glucose 79 (74-99) mg/dL Plasma Lactic Acid Sung 1.9 (0.7-2.0) mmol/L Calcium 8.6 (8.4-10.2) mg/dL Phosphorus 3.3 (2.5-4.5) mg/dL Magnesium 1.2 L (1.6-2.3) mg/dL Total Bilirubin 2.2 H (0.2-1.3) mg/dL AST 80 H (17-59) U/L ALT 119 H (4-49) U/L Alkaline Phosphatase 407 H (38-126) U/L Troponin I (0.000-0.034) ng/mL Total Protein 4.8 L (6.3-8.2) g/dL Albumin 2.3 L (3.5-5.0) g/dL TSH 3.940 (0.465-4.680) mIU/L 09/19/19 09/19/19 Range/Units 17:59 17:59 WBC (3.8-10.6) k/uL RBC (4.30-5.90) m/uL Hgb (13.0-17.5) gm/dL Hct (39.0-53.0) % MCV (80.0-100.0) fL MCH (25.0-35.0) pg MCHC (31.0-37.0) g/dL RDW (11.5-15.5) % Plt Count (150-450) k/uL Neutrophils % % Lymphocytes % % Monocytes % % Eosinophils % % Basophils % % Neutrophils # (1.3-7.7) k/uL Lymphocytes # (1.0-4.8) k/uL Monocytes # (0-1.0) k/uL Eosinophils # (0-0.7) k/uL Basophils # (0-0.2) k/uL Hypochromasia Anisocytosis Macrocytosis PT 13.3 H (9.0-12.0) sec INR 1.3 H (<1.2) APTT 24.8 (22.0-30.0) sec Sodium (137-145) mmol/L Potassium (3.5-5.1) mmol/L Chloride (98-107) mmol/L Carbon Dioxide (22-30) mmol/L Anion Gap mmol/L BUN (9-20) mg/dL Creatinine (0.66-1.25) mg/dL Est GFR (CKD-EPI)AfAm (>60 ml/min/1.73 sqM) Est GFR (CKD-EPI)NonAf (>60 ml/min/1.73 sqM) Glucose (74-99) mg/dL Plasma Lactic Acid Sung (0.7-2.0) mmol/L Calcium (8.4-10.2) mg/dL Phosphorus (2.5-4.5) mg/dL Magnesium (1.6-2.3) mg/dL Total Bilirubin (0.2-1.3) mg/dL AST (17-59) U/L ALT (4-49) U/L Alkaline Phosphatase (38-126) U/L Troponin I <0.012 (0.000-0.034) ng/mL Total Protein (6.3-8.2) g/dL Albumin (3.5-5.0) g/dL TSH (0.465-4.680) mIU/L Disposition Clinical Impression: Lower extremity weakness, Paresthesias, Anemia, Hypokalemia, Hypomagnesemia, Atrial fibrillation, Fall, Inability to walk Disposition: ADMITTED IP TO THIS [facility] Condition: Fair Is patient prescribed a controlled substance at d/c from ED?: No Time of Disposition: 20:13 Decision Date: 09/19/19 Decision Time: 20:13
[2019-09-19 18:29] LABS: Anisocytosis Moderate; Basophils % (A) 0 %; Eosinophils % (A) 1 %; HGB 9.2 gm/dL (13.0-17.5); Hypochromasia Moderate; Lymphocytes # (A) 0.9 k/uL (1.0-4.8); Lymphocytes % (A) 18 %; MCHC 31.9 g/dL (31.0-37.0); MCV 97.1 fL (80.0-100.0); Macrocytosis Slight; Mean Platelet Volume 8.8; Monocytes # (A) 0.4 k/uL (0-1.0); Monocytes % (A) 8 %; Neutrophils # (A) 3.4 k/uL (1.3-7.7); Neutrophils % (A) 71 %; Platelet Count 238 k/uL (150-450); RBC 2.98 m/uL (4.30-5.90); RDW 20.3 % (11.5-15.5); WBC 4.9 k/uL (3.8-10.6)
[2019-09-19 18:38] LABS: INR 1.3 (<1.2); Partial Thromboplastin Time 24.8 sec (22.0-30.0); Prothrombin Time 13.3 sec (9.0-12.0)
[2019-09-19 18:45] LABS: Albumin 2.3 g/dL (3.5-5.0); Calcium 8.6 mg/dL (8.4-10.2); Magnesium 1.2 mg/dL (1.6-2.3); Phosphorus 3.3 mg/dL (2.5-4.5); Potassium 3.4 mmol/L (3.5-5.1); Total Bilirubin 2.2 mg/dL (0.2-1.3); Total Protein 4.8 g/dL (6.3-8.2)
--- NOTE | 2019-09-19 19:26 | XR ---
EXAMINATION TYPE: XR chest 2V DATE OF EXAM: 09/19/2019 COMPARISON: 07/24/2019 HISTORY: Weakness TECHNIQUE: FINDINGS: There is blunting of the costophrenic angles. There is some atelectasis at the lung bases. Heart size is normal. There is no heart failure. There are chest leads. IMPRESSION: Pleural effusions and basilar atelectasis and linear infiltrate improved compared to last exam.
--- NOTE | 2019-09-19 19:43 | CT ---
EXAMINATION TYPE: CT brain wo con DATE OF EXAM: 09/19/2019 COMPARISON: 01/08/2019 HISTORY: WEAKNESS CT DLP: 1166.4 mGycm Automated exposure control for dose reduction was used. There is some cerebral cortical atrophy. There is no mass effect nor midline shift. There is no sign of intracranial hemorrhage. Calvarium is intact. There is no evidence of cerebral edema. IMPRESSION: Cerebral atrophy. No acute intracranial abnormality. No change.
[2019-09-19] MEDS ORDERED: ONDANSETRON 4 MG/2 ML VIAL IVP PRN (20:14)
[2019-09-19] MEDS ORDERED: NALOXONE 0.4 MG/ML 1 ML VIAL IV PRN (20:14)
[2019-09-19] MEDS: MAGNESIUM SULFATE-D5W PMX 1 GM in DEXTROSE/WATER 1 100ML.BAG IVPB SCH ×2 (20:27→21:47)
[2019-09-19] MEDS: POTASSIUM CHLORIDE 10 MEQ in WATER FOR INJECTION 1 100ML.BAG IVPB SCH ×2 (20:41→21:47)
[2019-09-19 20:54] LABS: Appearance,Urine Clear (Clear); Bilirubin,Urine Negative (Negative); Blood,Urine Negative (Negative); Color,Urine Yellow; Glucose,Urine (UA) Negative (Negative); Ketones,Urine Negative (Negative); Leukocyte Esterase,Urine Negative (Negative); Nitrite,Urine Negative (Negative); PH, Urine 5.5 (5.0-8.0); Protein,Urine Negative (Negative); Specific Gravity,Urine 1.022 (1.001-1.035)
[2019-09-19] MEDS: CYCLOBENZAPRINE 10 MG TAB PO PRN (22:34)
[2019-09-19] MEDS: FERROUS SULFATE 325 MG TAB PO SCH (22:35)
[2019-09-19] MEDS: APIXABAN 5 MG TAB PO SCH (22:35)
[2019-09-19] MEDS: HYDROCORTISONE 10 MG TAB PO SCH (22:35)
[2019-09-19] MEDS: PANTOPRAZOLE 40 MG TABLET PO SCH (22:35)
[2019-09-19] MEDS: METOPROLOL TARTRATE 25 MG TAB PO SCH (22:35)
[2019-09-20 06:56] LABS: Anisocytosis Moderate; Basophils % (A) 0 %; Eosinophils % (A) 1 %; HCT 28.3 % (39.0-53.0); HGB 8.5 gm/dL (13.0-17.5); Hypochromasia Marked; Lymphocytes # (A) 0.9 k/uL (1.0-4.8); Lymphocytes % (A) 26 %; MCH 29.9 pg (25.0-35.0); MCHC 29.9 g/dL (31.0-37.0); MCV 100.1 fL (80.0-100.0); Macrocytosis Moderate; Mean Platelet Volume 8.9; Monocytes # (A) 0.3 k/uL (0-1.0); Monocytes % (A) 7 %; Neutrophils # (A) 2.2 k/uL (1.3-7.7); Neutrophils % (A) 62 %; Platelet Count 183 k/uL (150-450); RBC 2.83 m/uL (4.30-5.90); WBC 3.5 k/uL (3.8-10.6)
[2019-09-20 07:15] LABS: African American GFR (CKD) >90 (>60 ml/min/1.73 sqM); Anion Gap 7 mmol/L; Blood Urea Nitrogen 13 mg/dL (9-20); Calcium 7.9 mg/dL (8.4-10.2); Carbon Dioxide 22 mmol/L (22-30); Chloride 112 mmol/L (98-107); Glucose 69 mg/dL (74-99); Magnesium 1.6 mg/dL (1.6-2.3); Non-African American GFR(CKD) 86 (>60 ml/min/1.73 sqM); Potassium 3.5 mmol/L (3.5-5.1); Sodium 141 mmol/L (137-145)
[2019-09-20] MEDS: POTASSIUM CHLORIDE ER 20 MEQ TAB.ER PO SCH (08:29)
[2019-09-20] MEDS: METOPROLOL TARTRATE 25 MG TAB PO SCH ×2 (08:30→21:35)
[2019-09-20] MEDS: HYDROCORTISONE 20 MG TAB PO SCH (08:30)
[2019-09-20] MEDS: CHOLECALCIFEROL 1,000 UNIT TAB PO SCH (08:30)
[2019-09-20] MEDS: MULTIVITAMINS, THERA 1 EACH TAB PO SCH (08:30)
[2019-09-20] MEDS: FUROSEMIDE 40 MG TAB PO SCH (08:31)
[2019-09-20] MEDS: MIDODRINE 5 MG TAB PO SCH ×3 (08:32→17:09)
[2019-09-20] MEDS: PANTOPRAZOLE 40 MG TABLET PO SCH ×2 (08:32→17:07)
[2019-09-20] MEDS: APIXABAN 5 MG TAB PO SCH ×2 (08:32→21:35)
[2019-09-20] MEDS: ALLOPURINOL 300 MG TAB PO SCH (08:32)
--- NOTE | 2019-09-20 11:46 | US ---
EXAMINATION TYPE: US abdomen limited DATE OF EXAM: 09/20/2019 COMPARISON: CT February 02, 2019 CLINICAL HISTORY: elevated LFts. cholecystectomy, known lipomatosis of abd seen on CT 02/06 EXAM MEASUREMENTS: Liver Length: 19.2 cm Gallbladder Wall: Surgically absent CBD: 0.6 cm Right Kidney: 11.4 x 4.6 x 6.3 cm exam severely limited due to abd abnormality as stated above Pancreas: not seen Liver: displaced high within ribcage and very difficult to penetrate Gallbladder: Surgically absent Evidence for sonographic Aparicio's sign: no CBD: wnl Right Kidney: malrotated, patient states he had procedure on right kidney, possible lesion superior pole 2.6 x 2.4 x 1.9cm Exam suboptimal due to patient's large body habitus. Suboptimal evaluation of pancreas. Visualized li samra is markedly heterogeneous. Gallbladder noted surgically absent. Cortical thinning in the right ki dney. IMPRESSION: Limited study. CT shows marked retroperitoneal lipomatosis. CT shows also marked fatty in filtration of liver.
[2019-09-20] MEDS: FERROUS SULFATE 325 MG TAB PO SCH ×2 (13:19→21:35)
--- NOTE | 2019-09-20 19:14 | P.HPIM ---
History of Present Illness H&P Date: 09/20/19 Chief Complaint: leg weakness Patient is a 69-year-old male with a known history of CHF with diastolic dysfunction chronic, paroxysmal atrial fibrillation on long-term anticoagulation with the liquids, alcohol abuse and history of right renal carcinoma presents to Hospital with complaints of leg weakness. Patient has been having bilateral leg weakness which is worse on the right side. He relates that he first noticed this upon waking this morning at approximately 8 AM. He states that he almost fell getting out of bed. He was able to get around the house with his walker throughout the day but it was somewhat difficult. He states that he then later fell tonight shortly prior to arrival and was unable to get up. He rolled around on the ground for several hours. He denies obtaining any injuries. He did not hit his head. He denies any known vascular problems previously. He denies any history of CVA or TIA. He states that he has been doing overall fairly well over the past several days. He denies any recent illnesses or fevers. There's been no urinary symptoms there's been no chest pain or shortness of breath. No other complaints or modifying factors. It appears that his upper extremities are unaffected. He does complain of some numbness to his bilateral lower extremities as well as the left leg being worse in the right. There is no other paresthesias. Patient does have previous history of fall. Denied any back pain. Patient was admitted to the hospital with GI bleed/rectal bleed recently. Chest x-ray showed pleural effusions and bibasilar atelectasis and linear infiltrate improved compared to last exam. CT head showed cerebral atrophy. No acute intracranial process. Ultrasound of the abdomen shows marked retroperitoneal lipomatosis and marked fatty infiltration of liver. WBC 4.9, hemoglobin 9.2, INR 1.3, potassium 3.4 BUE and 15 and creatinine 1.1 sodium 142, magnesium 1.2 AST 80 and ALT 119, alk phos 407, albumin 2.3 and TSH 3.94 Troponin 3 negative Urinalysis is negative for infection. Review of Systems Constitutional: Patient denies any fever or chills . Generalized weakness and weight gain.. Abdomen: Patient denied nausea vomiting and diarrhea and abdominal pain. Cardiovascular: Patient denies any chest pain or short of breath no palpita tions. Respiratory: patient denied any cough is from production. No shortness of breath Neurologic: Patient denied any numbness or tingling headache. Bilateral leg weakness. Musculoskeletal: Patient denies any complaints of joint swelling or deformity. Skin: Negative Psychiatric: Negative Endocrine: No heat or cold intolerance. No recent weight gain. Genitourinary: No dysuria or hematuria. All other 14 point ROS negative except the above Past Medical History Past Medical History: Atrial Fibrillation, Blood Disorder, Cancer, Osteoarthritis (OA), Pulmonary Embolus (PE) Additional Past Medical History / Comment(s): Afib/RVR, pulmonary embolism L lung, pancreatitis multiple times, ETOH abuse, was diagnosed with R renal carcinoma with cryoablation at [place], BPH, past R lung pneumo with chest tube, diverticulitis, benign colon polyps, arthritis multiple joints, abdominal hernias. Dizziness fall and right rib fractures 09/15/18,. Adrenal insufficiently History of Any Multi-Drug Resistant Organisms: None Reported Past Surgical History: Bariatric Surgery, Bowel Resection, Cholecystectomy, Hernia Repair, Joint Replacement Additional Past Surgical History / Comment(s): Recent (2017) r kidney lesion cryoablation at [facility], 2013 bowel resection d/t viscus perf with colostomy later reversed , gastric sleeve converted to darrell-en-Y 08/2014-post op wound infection, paraesphogeal hiat hernia repair, R inguinal and umbilical hernia repairs, colonoscopies, L total knee arthroplasty., Past Anesthesia/Blood Transfusion Reactions: No Reported Reaction Past Psychological History: No Psychological Hx Reported Smoking Status: Former smoker Past Alcohol Use History: None Reported Past Drug Use History: None Reported - Past Family History Father Family Medical History: COPD, Myocardial Infarction (OR) Additional Family Medical History / Comment(s): Father from a OR at the age of 69yrs. Mother Family Medical History: Cancer Additional Family Medical History / Comment(s): Mother from ovarian cancer at the age of 69yrs. Sister(s) Family Medical History: Cancer Additional Family Medical History / Comment(s): at age 74yrs. Had breast cancer and a defibrillator Medications and Allergies Home Medications Medication Instructions Recorded Confirmed Type Allopurinol [Zyloprim] 300 mg PO DAILY@0900 #30 tab 08/12/19 09/19/19 Rx Apixaban [Eliquis] 5 mg PO BID@0900,2100 #30 tab 11/22/19 12/30/19 Rx Cholecalciferol [Vitamin D3 (25 5,000 unit PO DAILY@0900 #30 tab 08/12/19 09/19/19 Rx Mcg = 1000 Iu)] Ferrous Gluconate 324 mg PO BID@0900,2100 #30 tab 08/12/19 09/19/19 Rx Furosemide [Lasix] 40 mg PO DAILY@0900 #30 tab 08/12/19 09/19/19 Rx Midodrine [ProAmatine] 15 mg PO TID@0800,1200,1700 #60 tab 08/12/19 09/19/19 Rx Multivitamins, Thera [Multivitamin 1 each PO DAILY@0900 #30 tab 08/12/19 09/19/19 Rx (formulary)] Cyclobenzaprine [Flexeril] 10 mg PO DAILY PRN 09/19/19 09/19/19 History Metoprolol Tartrate 25 mg PO BID 09/19/19 09/19/19 History Pantoprazole Sodium [Protonix] 40 mg PO BID 09/19/19 09/19/19 History Hydrocortisone [Cortef] 5 mg PO HS 09/20/19 09/20/19 History Hydrocortisone [Cortef] 10 mg PO DAILY 09/20/19 09/20/19 History Potassium Chloride ER [K-Dur 20] 20 meq PO DAILY 09/20/19 09/20/19 History Allergies Allergy/AdvReac Type Severity Reaction Status Date / Time No Known Allergies Allergy Verified 09/19/19 18:30 Physical Exam Vitals: Vital Signs Temp Pulse Resp BP Pulse Ox 09/20/19 09:00 98.3 F 73 16 116/61 97 09/20/19 06:00 78 18 114/72 96 09/20/19 03:30 77 18 116/69 96 09/20/19 01:12 84 16 119/76 96 09/19/19 22:36 98.1 F 77 20 132/71 97 09/19/19 20:44 82 20 119/81 97 09/19/19 19:52 98.1 F 86 20 128/77 97 09/19/19 17:50 97.6 F 80 19 125/70 97 Intake and Output 09/19/19 09/20/19 09/20/19 22:59 06:59 14:59 Other: Weight 108.862 kg PHYSICAL EXAMINATION: Patient is lying in the bed comfortably, no acute distress, awake alert and oriented.. HEENT: Normocephalic. Neck is supple. Pupils reactive. Nostrils clear. Oral cavity is moist. Ears reveal no drainage. Neck reveals no JVD, carotid bruits, or thyromegaly. CHEST EXAMINATION: Trachea is central. Symmetrical expansion. Bibasilar diminished air entry. No wheezing ,Lung valdez clear to auscultation and percussion. CARDIAC: Normal S1, S2 with no gallops. No murmurs ABDOMEN: Soft. Bowel sounds normal. No organomegaly. No abdominal bruits. Extremities: 2+ bilateral pedal edema. No clubbing or cyanosis Neurologically awake, alert, oriented x3 with well-coordinated movements. No focal deficits noted Skin: No rash or skin lesions. Psychiatric: Coperative. Nonsuicidal Musculoskeletal: No joint swelling or deformity. Decreased range of motion of bilateral lower extremities. Right greater than left. Results CBC & Chem 7: 09/20/19 06:05 09/20/19 06:05 Labs: Abnormal Lab Results - Last 24 Hours (Table) 09/19/19 09/19/19 09/19/19 Range/Units 17:59 17:59 17:59 WBC (3.8-10.6) k/uL RBC 2.98 L (4.30-5.90) m/uL Hgb 9.2 L (13.0-17.5) gm/dL Hct 29.0 L (39.0-53.0) % MCV (80.0-100.0) fL MCHC (31.0-37.0) g/dL RDW 20.3 H (11.5-15.5) % Lymphocytes # 0.9 L (1.0-4.8) k/uL PT 13.3 H (9.0-12.0) sec INR 1.3 H (<1.2) Potassium 3.4 L (3.5-5.1) mmol/L Chloride 112 H (98-107) mmol/L Glucose (74-99) mg/dL Calcium (8.4-10.2) mg/dL Magnesium 1.2 L (1.6-2.3) mg/dL Total Bilirubin 2.2 H (0.2-1.3) mg/dL AST 80 H (17-59) U/L ALT 119 H (4-49) U/L Alkaline Phosphatase 407 H (38-126) U/L Total Protein 4.8 L (6.3-8.2) g/dL Albumin 2.3 L (3.5-5.0) g/dL 09/20/19 09/20/19 Range/Units 06:05 06:05 WBC 3.5 L (3.8-10.6) k/uL RBC 2.83 L (4.30-5.90) m/uL Hgb 8.5 L (13.0-17.5) gm/dL Hct 28.3 L (39.0-53.0) % MCV 100.1 H (80.0-100.0) fL MCHC 29.9 L (31.0-37.0) g/dL RDW 21.0 H (11.5-15.5) % Lymphocytes # 0.9 L (1.0-4.8) k/uL PT (9.0-12.0) sec INR (<1.2) Potassium (3.5-5.1) mmol/L Chloride 112 H (98-107) mmol/L Glucose 69 L (74-99) mg/dL Calcium 7.9 L (8.4-10.2) mg/dL Magnesium (1.6-2.3) mg/dL Total Bilirubin (0.2-1.3) mg/dL AST (17-59) U/L ALT (4-49) U/L Alkaline Phosphatase (38-126) U/L Total Protein (6.3-8.2) g/dL Albumin (3.5-5.0) g/dL Assessment and Plan Assessment: Bilateral lower extremity weakness right greater than left. Rule out acute CVA. Possible generalized weakness and deconditioning. Paroxysmal atrial fibrillation. On anticoagulant with eliquis Elevated liver enzymes likely due to alcohol Hepatitis. Recent history of GI bleed. 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 Previous history of smoking plan: Patient will be continued on PT OT and replace electrolyte. Continue with home medications including Lasix. Monitor blood pressure closely. Monitor H&H. Follow up liver enzymes. Encourage oral intake and protein supplements. Further recommendations based on the clinical course. Prognosis is guarded with multiple medical problems and comorbid conditions. Patient may need rehab transfer. = Time with Patient: Greater than 30
[2019-09-20] MEDS: HYDROCORTISONE 10 MG TAB PO SCH (21:35)
[2019-09-20] MEDS: CYCLOBENZAPRINE 10 MG TAB PO PRN (21:37)
[2019-09-21 08:02] LABS: ALT 81 U/L (4-49); African American GFR (CKD) >90 (>60 ml/min/1.73 sqM); Anion Gap 1 mmol/L; Blood Urea Nitrogen 13 mg/dL (9-20); Calcium 8.3 mg/dL (8.4-10.2); Carbon Dioxide 30 mmol/L (22-30); Chloride 110 mmol/L (98-107); Glucose 86 mg/dL (74-99); Non-African American GFR(CKD) 86 (>60 ml/min/1.73 sqM); Sodium 141 mmol/L (137-145); Total Bilirubin 1.9 mg/dL (0.2-1.3); Total Protein 4.8 g/dL (6.3-8.2)
[2019-09-21 08:06] LABS: AST 62 U/L (17-59); Alkaline Phosphatase 369 U/L (38-126); Magnesium 1.6 mg/dL (1.6-2.3); Potassium 3.8 mmol/L (3.5-5.1)
[2019-09-21 08:21] LABS: Anisocytosis Moderate; Basophils % (A) 0 %; Eosinophils # (A) 0.1 k/uL (0-0.7); Eosinophils % (A) 2 %; HCT 25.7 % (39.0-53.0); HGB 8.8 gm/dL (13.0-17.5); Hypochromasia Slight; Lymphocytes # (A) 1.1 k/uL (1.0-4.8); Lymphocytes % (A) 26 %; MCHC 34.2 g/dL (31.0-37.0); MCV 96.3 fL (80.0-100.0); Macrocytosis Slight; Mean Platelet Volume 10.1; Monocytes # (A) 0.4 k/uL (0-1.0); Monocytes % (A) 9 %; Neutrophils # (A) 2.7 k/uL (1.3-7.7); Neutrophils % (A) 61 %; Platelet Count 202 k/uL (150-450); RBC 2.66 m/uL (4.30-5.90); WBC 4.3 k/uL (3.8-10.6)
[2019-09-21] MEDS: ALLOPURINOL 300 MG TAB PO SCH (08:28)
[2019-09-21] MEDS: PANTOPRAZOLE 40 MG TABLET PO SCH ×2 (08:28→17:34)
[2019-09-21] MEDS: APIXABAN 5 MG TAB PO SCH ×2 (08:29→20:38)
[2019-09-21] MEDS: FUROSEMIDE 40 MG TAB PO SCH (08:29)
[2019-09-21] MEDS: POTASSIUM CHLORIDE ER 20 MEQ TAB.ER PO SCH (08:29)
[2019-09-21] MEDS: HYDROCORTISONE 20 MG TAB PO SCH (08:29)
[2019-09-21] MEDS: MIDODRINE 5 MG TAB PO SCH ×3 (08:29→17:34)
[2019-09-21] MEDS: CHOLECALCIFEROL 1,000 UNIT TAB PO SCH (08:29)
[2019-09-21] MEDS: METOPROLOL TARTRATE 25 MG TAB PO SCH ×2 (08:30→20:38)
[2019-09-21] MEDS: FERROUS SULFATE 325 MG TAB PO SCH ×2 (08:30→20:38)
[2019-09-21] MEDS: MULTIVITAMINS, THERA 1 EACH TAB PO SCH (08:30)
[2019-09-21 09:34] LABS: Poikilocytosis (M) Present; Target Cells Present
[2019-09-21] MEDS: HYDROCORTISONE 10 MG TAB PO SCH (20:38)
[2019-09-21] MEDS: CYCLOBENZAPRINE 10 MG TAB PO PRN (20:40)
--- NOTE | 2019-09-21 22:38 | P.PN ---
Subjective Progress Note Date: 09/21/19 Principal diagnosis: Bilateral lower extremity weakness Patient is a 69-year-old male with a known history of CHF with diastolic dysfunction chronic, paroxysmal atrial fibrillation on long-term anticoagulation with the liquids, alcohol abuse and history of right renal carcinoma presents to Hospital with complaints of leg weakness. Patient has been having bilateral leg weakness which is worse on the right side. He relates that he first noticed this upon waking this morning at approximately 8 AM. He states that he almost fell getting out of bed. He was able to get around the house with his walker throughout the day but it was somewhat difficult. He states that he then later fell tonight shortly prior to arrival and was unable to get up. He rolled around on the ground for several hours. He denies obtaining any injuries. He did not hit his head. He denies any known vascular problems previously. He denies any history of CVA or TIA. He states that he has been doing overall fairly well over the past several days. He denies any recent illnesses or fevers. There's been no urinary symptoms there's been no chest pain or shortness of breath. No other complaints or modifying factors. It appears that his upper extremities are unaffected. He does complain of some numbness to his bilateral lower extremities as well as the left leg being worse in the right. There is no other paresthesias. Patient does have previous history of fall. Denied any back pain. Patient was admitted to the hospital with GI bleed/rectal bleed recently. Chest x-ray showed pleural effusions and bibasilar atelectasis and linear infiltrate improved compared to last exam. CT head showed cerebral atrophy. No acute intracranial process. Ultrasound of the abdomen shows marked retroperitoneal lipomatosis and marked fatty infiltration of liver. WBC 4.9, hemoglobin 9.2, INR 1.3, potassium 3.4 BUE and 15 and creatinine 1.1 sodium 142, magnesium 1.2 AST 80 and ALT 119, alk phos 407, albumin 2.3 and TSH 3.94 Troponin 3 negative Urinalysis is negative for infection. 09/21/2019 Patient says that his leg weakness is better. Swelling is also improving. Patient is able to ambulate with physical therapy. Medications 1.6 today which is being replaced. Liver enzymes are trending down slowly. Patient has been afebrile. No complaints of chest pain or shortness of breath. No nausea vomiting or abdominal pain. Tolerating oral diet. No headache or dizziness. No dysuria or hematuria. Current medications reviewed. Active Medications Allopurinol (Zyloprim) 300 mg PO DAILY@0900 [facility] Last Admin: 09/21/19 08:28 Dose: 300 mg Documented by: Apixaban (Eliquis) 5 mg PO BID@0900,2100 [facility] Last Admin: 09/21/19 20:38 Dose: 5 mg Documented by: Cholecalciferol (Vitamin D3 (25 Mcg = 1000 Iu)) 5,000 unit PO DAILY@0900 [facility] Last Admin: 09/21/19 08:29 Dose: 5,000 unit Documented by: Cyclobenzaprine HCl (Flexeril) 10 mg PO DAILY PRN PRN Reason: MUSCLE SPASMS Last Admin: 09/21/19 20:40 Dose: 10 mg Documented by: Ferrous Sulfate (Feosol) 325 mg PO BID@0900,2100 [facility] Last Admin: 09/21/19 20:38 Dose: 325 mg Documented by: Furosemide (Lasix) 40 mg PO DAILY@09 [facility] Last Admin: 09/21/19 08:29 Dose: 40 mg Documented by: Hydrocortisone (Cortef) 10 mg PO HS@2100 [facility] Last Admin: 09/21/19 20:38 Dose: 10 mg Documented by: Hydrocortisone (Cortef) 20 mg PO DAILY@09 [facility] Last Admin: 09/21/19 08:29 Dose: 20 mg Documented by: Magnesium Sulfate/Dextrose 1 (gm/ IV Solution) 100 mls @ 100 mls/hr IVPB Q1H [facility] Stop: 09/22/19 01:44 Metoprolol Tartrate (Lopressor) 25 mg PO BID [facility] Last Admin: 09/21/19 20:38 Dose: 25 mg Documented by: Midodrine (Proamatine) 15 mg PO TID@0800,1200,1700 [facility] Last Admin: 09/21/19 17:34 Dose: 15 mg Documented by: Multivitamins (Theragran) 1 each PO DAILY@0900 [facility] Last Admin: 09/21/19 08:30 Dose: 1 each Documented by: Naloxone HCl (Narcan) 0.2 mg IV Q2M PRN PRN Reason: Opioid Reversal Ondansetron HCl (Zofran) 4 mg IVP Q8HR PRN PRN Reason: Nausea And Vomiting Pantoprazole Sodium (Protonix) 40 mg PO AC-BID [facility] Last Admin: 09/21/19 17:34 Dose: 40 mg Documented by: Potassium Chloride (K-Dur 20) 40 meq PO DAILY@0900 [facility] Last Admin: 09/21/19 08:29 Dose: 40 meq Documented by: Objective - Vital Signs Vital signs: Vital Signs Temp 96.3 F L 09/21/19 21:00 Pulse 72 09/21/19 21:00 Resp 16 09/21/19 21:00 BP 142/77 09/21/19 21:00 Pulse Ox 95 09/21/19 21:00 Intake & Output 09/21/19 09/21/19 09/22/19 06:59 18:59 06:59 Intake Total 590 Balance 590 Intake: Oral 590 Other: Voiding Method Urinal Urinal # Voids 2 3 - Exam PHYSICAL EXAMINATION: Patient is lying in the bed comfortably, no acute distress, awake alert and oriented.. HEENT: Normocephalic. Neck is supple. Pupils reactive. Nostrils clear. Oral cavity is moist. Ears reveal no drainage. Neck reveals no JVD, carotid bruits, or thyromegaly. CHEST EXAMINATION: Trachea is central. Symmetrical expansion. Bibasilar diminished air entry. No wheezing ,Lung valdez clear to auscultation and percussion. CARDIAC: Normal S1, S2 with no gallops. No murmurs ABDOMEN: Soft. Bowel sounds normal. No organomegaly. No abdominal bruits. Extremities: 2+ bilateral pedal edema. No clubbing or cyanosis Neurologically awake, alert, oriented x3 with well-coordinated movements. No focal deficits noted Skin: No rash or skin lesions. Psychiatric: Coperative. Nonsuicidal Musculoskeletal: No joint swelling or deformity. Decreased range of motion of bilateral lower extremities. - Labs CBC & Chem 7: 09/21/19 07:24 09/21/19 07:24 Labs: Abnormal Lab Results - Last 24 Hours (Table) 09/21/19 09/21/19 Range/Units 07:24 07:24 RBC 2.66 L (4.30-5.90) m/uL Hgb 8.8 L (13.0-17.5) gm/dL Hct 25.7 L (39.0-53.0) % RDW 21.0 H (11.5-15.5) % Chloride 110 H (98-107) mmol/L Calcium 8.3 L (8.4-10.2) mg/dL Total Bilirubin 1.9 H (0.2-1.3) mg/dL AST 62 H (17-59) U/L ALT 81 H (4-49) U/L Alkaline Phosphatase 369 H (38-126) U/L Total Protein 4.8 L (6.3-8.2) g/dL Albumin 2.0 L (3.5-5.0) g/dL Assessment and Plan Assessment: Bilateral lower extremity weakness right greater than left. Rule out acute CVA. Possible generalized weakness and deconditioning. Paroxysmal atrial fibrillation. On anticoagulant with eliquis. Rate is controlled. Elevated liver enzymes likely due to alcohol Hepatitis. Recent history of GI bleed. 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 History of diverticulosis Chronic adrenal insufficiency currently on supplementation. Previous history of smoking plan: Patient will be continued on PT OT and replace electrolyte. Continue with home medications including Lasix. Monitor blood pressure closely. Monitor H&H. Follow up liver enzymes. Encourage oral intake and protein supplements. Further recommendations based on the clinical course. Prognosis is guarded with multiple medical problems and comorbid conditions. Patient may need rehab transfer. = Time with Patient: Greater than 30
[2019-09-21] MEDS: MAGNESIUM SULFATE-D5W PMX 1 GM in DEXTROSE/WATER 1 100ML.BAG IVPB SCH ×2 (22:41→23:29)
[2019-09-22] MEDS: MAGNESIUM SULFATE-D5W PMX 1 GM in DEXTROSE/WATER 1 100ML.BAG IVPB SCH ×3 (01:16→22:35)
[2019-09-22] MEDS ORDERED: LORazepam 2 MG/ML INJ IV PRN (06:14)
[2019-09-22] MEDS: LORazepam 2 MG/ML INJ IV PRN ×6 (06:25→17:09)
[2019-09-22 07:56] LABS: ALT 71 U/L (4-49); AST 41 U/L (17-59); African American GFR (CKD) >90 (>60 ml/min/1.73 sqM); Albumin 2.2 g/dL (3.5-5.0); Alkaline Phosphatase 373 U/L (38-126); Anion Gap 3 mmol/L; Blood Urea Nitrogen 15 mg/dL (9-20); Calcium 8.3 mg/dL (8.4-10.2); Carbon Dioxide 33 mmol/L (22-30); Chloride 107 mmol/L (98-107); Glucose 88 mg/dL (74-99); Non-African American GFR(CKD) 82 (>60 ml/min/1.73 sqM); Potassium 3.3 mmol/L (3.5-5.1); Sodium 143 mmol/L (137-145); Total Bilirubin 1.9 mg/dL (0.2-1.3)
[2019-09-22 08:02] LABS: Anisocytosis Moderate; Basophils % (A) 1 %; Eosinophils # (A) 0.1 k/uL (0-0.7); Eosinophils % (A) 2 %; HCT 29.9 % (39.0-53.0); HGB 9.2 gm/dL (13.0-17.5); Hypochromasia Marked; Lymphocytes # (A) 1.2 k/uL (1.0-4.8); Lymphocytes % (A) 22 %; MCH 30.7 pg (25.0-35.0); MCHC 30.7 g/dL (31.0-37.0); MCV 100.1 fL (80.0-100.0); Macrocytosis Moderate; Mean Platelet Volume 8.5; Monocytes # (A) 0.4 k/uL (0-1.0); Monocytes % (A) 8 %; Neutrophils # (A) 3.4 k/uL (1.3-7.7); Neutrophils % (A) 64 %; Platelet Count 223 k/uL (150-450); RBC 2.99 m/uL (4.30-5.90); RDW 21.6 % (11.5-15.5); WBC 5.4 k/uL (3.8-10.6)
[2019-09-22] MEDS: FUROSEMIDE 40 MG TAB PO SCH (09:04)
[2019-09-22] MEDS: HYDROCORTISONE 20 MG TAB PO SCH (09:04)
[2019-09-22] MEDS: MIDODRINE 5 MG TAB PO SCH ×3 (09:04→16:53)
[2019-09-22] MEDS: ALLOPURINOL 300 MG TAB PO SCH (09:04)
[2019-09-22] MEDS: METOPROLOL TARTRATE 25 MG TAB PO SCH ×2 (09:05→22:37)
[2019-09-22] MEDS: FERROUS SULFATE 325 MG TAB PO SCH ×2 (09:05→22:36)
[2019-09-22] MEDS: CHOLECALCIFEROL 1,000 UNIT TAB PO SCH (09:05)
[2019-09-22] MEDS: MULTIVITAMINS, THERA 1 EACH TAB PO SCH (09:05)
[2019-09-22] MEDS: APIXABAN 5 MG TAB PO SCH ×2 (09:05→22:36)
[2019-09-22] MEDS: PANTOPRAZOLE 40 MG TABLET PO SCH ×2 (09:06→16:53)
[2019-09-22] MEDS: POTASSIUM CHLORIDE ER 20 MEQ TAB.ER PO SCH (09:06)
--- NOTE | 2019-09-22 14:30 | XR ---
EXAMINATION TYPE: XR chest 1V portable DATE OF EXAM: 09/22/2019 COMPARISON: 09/19/2019 HISTORY: Congestive heart failure and hypoxemia TECHNIQUE: Single frontal view of the chest is obtained. FINDINGS: Cardiomediastinal silhouette is enlarged. There are worsening small pleural effusions and bibasilar airspace disease. There are lower lung volumes than on the prior. Generalized osseous demin eralization is seen. IMPRESSION: Decreased lung volumes and increasing small bilateral pleural effusions with bibasilar a irspace disease and cardiomegaly.
[2019-09-22 14:56] LABS: Glucose,Whole Blood 105 mg/dL (75-99)
[2019-09-22] MEDS ORDERED: DILTIAZEM DRIP BOLUS FROM BAG 1 MG SOLN IV ONE ×2 (15:12→15:47)
[2019-09-22] MEDS: DILTIAZEM 125 MG in SODIUM CHLORIDE 0.9% 100 ML IV SCH (15:22)
[2019-09-22 18:02] LABS: Potassium 4.2 mmol/L (3.5-5.1)
[2019-09-22 18:03] LABS: Magnesium 1.6 mg/dL (1.6-2.3)
--- NOTE | 2019-09-22 22:16 | P.PN ---
Subjective Progress Note Date: 09/22/19 Principal diagnosis: Bilateral lower extremity weakness Acute delirium Acute alcohol withdrawal symptoms Atrial fibrillation with rapid ventricular rate Patient is a 69-year-old male with a known history of CHF with diastolic dysfunction chronic, paroxysmal atrial fibrillation on long-term anticoagulation with Eliquis, alcohol abuse and history of right renal carcinoma presents to Hospital with complaints of leg weakness. Patient has been having bilateral leg weakness which is worse on the right side. He relates that he first noticed this upon waking this morning at approximately 8 AM. He states that he almost fell getting out of bed. He was able to get around the house with his walker throughout the day but it was somewhat difficult. He states that he then later fell tonight shortly prior to arrival and was unable to get up. He rolled around on the ground for several hours. He denies obtaining any injuries. He did not hit his head. He denies any known vascular problems previously. He denies any history of CVA or TIA. He states that he has been doing overall fairly well over the past several days. He denies any recent illnesses or fevers. There's been no urinary symptoms there's been no chest pain or shortness of breath. No other complaints or modifying factors. It appears that his upper extremities are unaffected. He does complain of some numbness to his bilateral lower extremities as well as the left leg being worse in the right. There is no other paresthesias. Patient does have previous history of fall. Denied any back pain. Patient was admitted to the hospital with GI bleed/rectal bleed recently. Chest x-ray showed pleural effusions and bibasilar atelectasis and linear infiltrate improved compared to last exam. CT head showed cerebral atrophy. No acute intracranial process. Ultrasound of the abdomen shows marked retroperitoneal lipomatosis and marked fatty infiltration of liver. WBC 4.9, hemoglobin 9.2, INR 1.3, potassium 3.4 BUE and 15 and creatinine 1.1 sodium 142, magnesium 1.2 AST 80 and ALT 119, alk phos 407, albumin 2.3 and TSH 3.94 Troponin 3 negative Urinalysis is negative for infection. 09/21/2019 Patient says that his leg weakness is better. Swelling is also improving. Patient is able to ambulate with physical therapy. Medications 1.6 today which is being replaced. Liver enzymes are trending down slowly. Patient has been afebrile. No complaints of chest pain or shortness of breath. No nausea vomiting or abdominal pain. Tolerating oral diet. No headache or dizziness. No dysuria or hematuria. 09/22/2019 Patient is more confused and delirious this morning. Patient is being continued on alcohol withdrawal protocol. Patient went into atrial fibrillation with rapid regular rate and rapid response team was called. Patient was started on Cardizem drip and transferred to telemetry unit. Denied any complaints of chest pain. Patient did have shortness of breath. No nausea vomiting. Denied any abdominal pain. Patient has been afebrile. Patient does have low potassium and magnesium. Will be replaced. Liver enzymes are trending down. Cardiology will be consulted for further evaluation of it fibrillation. Patient does have history of paroxysmal atrial fibrillation on anticoagulation with Eliquis. Current medications reviewed. Active Medications Allopurinol (Zyloprim) 300 mg PO DAILY@0900 [facility] Last Admin: 09/21/19 08:28 Dose: 300 mg Documented by: Apixaban (Eliquis) 5 mg PO BID@09,2099 [facility] Last Admin: 09/21/19 20:38 Dose: 5 mg Documented by: Cholecalciferol (Vitamin D3 (25 Mcg = 1000 Iu)) 5,000 unit PO DAILY@09 [facility] Last Admin: 09/21/19 08:29 Dose: 5,000 unit Documented by: Cyclobenzaprine HCl (Flexeril) 10 mg PO DAILY PRN PRN Reason: MUSCLE SPASMS Last Admin: 09/21/19 20:40 Dose: 10 mg Documented by: Ferrous Sulfate (Feosol) 325 mg PO BID@09,2099 [facility] Last Admin: 09/21/19 20:38 Dose: 325 mg Documented by: Furosemide (Lasix) 40 mg PO DAILY@0900 [facility] Last Admin: 09/21/19 08:29 Dose: 40 mg Documented by: Hydrocortisone (Cortef) 10 mg PO HS@2100 [facility] Last Admin: 09/21/19 20:38 Dose: 10 mg Documented by: Hydrocortisone (Cortef) 20 mg PO DAILY@09 [facility] Last Admin: 09/21/19 08:29 Dose: 20 mg Documented by: Magnesium Sulfate/Dextrose 1 (gm/ IV Solution) 100 mls @ 100 mls/hr IVPB Q1H [facility] Stop: 09/22/19 01:44 Metoprolol Tartrate (Lopressor) 25 mg PO BID [facility] Last Admin: 09/21/19 20:38 Dose: 25 mg Documented by: Midodrine (Proamatine) 15 mg PO TID@0800,1200,1700 [facility] Last Admin: 09/21/19 17:34 Dose: 15 mg Documented by: Multivitamins (Theragran) 1 each PO DAILY@0900 [facility] Last Admin: 09/21/19 08:30 Dose: 1 each Documented by: Naloxone HCl (Narcan) 0.2 mg IV Q2M PRN PRN Reason: Opioid Reversal Ondansetron HCl (Zofran) 4 mg IVP Q8HR PRN PRN Reason: Nausea And Vomiting Pantoprazole Sodium (Protonix) 40 mg PO AC-BID [facility] Last Admin: 09/21/19 17:34 Dose: 40 mg Documented by: Potassium Chloride (K-Dur 20) 40 meq PO DAILY@0900 [facility] Last Admin: 09/21/19 08:29 Dose: 40 meq Documented by: Objective - Vital Signs Vital signs: Vital Signs Temp 97.8 F 09/22/19 20:00 Pulse 91 09/22/19 20:00 Resp 19 09/22/19 20:00 BP 133/71 09/22/19 20:00 Pulse Ox 96 09/22/19 20:00 Intake & Output 09/22/19 09/22/19 09/23/19 06:59 18:59 06:59 Intake Total 1770 Balance 1770 Weight 111.5 kg Intake: Oral 1770 Other: Voiding Method Urinal Urinal # Voids 4 4 # Bowel Movements 3 3 - Exam PHYSICAL EXAMINATION: Patient is lying in the bed comfortably, no acute distress, awake alert and delirious and confused.. HEENT: Normocephalic. Neck is supple. Pupils reactive. Nostrils clear. Oral cavity is moist. Ears reveal no drainage. Neck reveals no JVD, carotid bruits, or thyromegaly. CHEST EXAMINATION: Trachea is central. Symmetrical expansion. Bibasilar diminished air entry. No wheezing ,Lung valdez clear to auscultation and percussion. CARDIAC: Normal S1, S2 with no gallops. No murmurs . Irregularly irregular rhythm ABDOMEN: Soft. Bowel sounds normal. No organomegaly. No abdominal bruits. Extremities: 2+ bilateral pedal edema. No clubbing or cyanosis Neurologically awake, alert and delirious. with well-coordinated movements. No focal deficits noted Skin: No rash or skin lesions. Psychiatric: Coperative. Nonsuicidal Musculoskeletal: No joint swelling or deformity. Normal range of motion. - Labs CBC & Chem 7: 09/22/19 07:12 09/22/19 16:46 Labs: Abnormal Lab Results - Last 24 Hours (Table) 09/22/19 09/22/19 09/22/19 Range/Units 07:12 07:12 14:45 RBC 2.99 L (4.30-5.90) m/uL Hgb 9.2 L (13.0-17.5) gm/dL Hct 29.9 L (39.0-53.0) % MCV 100.1 H (80.0-100.0) fL MCHC 30.7 L (31.0-37.0) g/dL RDW 21.6 H (11.5-15.5) % Potassium 3.3 L (3.5-5.1) mmol/L Carbon Dioxide 33 H (22-30) mmol/L POC Glucose (mg/dL) 105 H (75-99) mg/dL Calcium 8.3 L (8.4-10.2) mg/dL Total Bilirubin 1.9 H (0.2-1.3) mg/dL ALT 71 H (4-49) U/L Alkaline Phosphatase 373 H (38-126) U/L Total Protein 5.0 L (6.3-8.2) g/dL Albumin 2.2 L (3.5-5.0) g/dL Assessment and Plan Assessment: Atrial fibrillation with rapid ventricular rate. Acute alcohol withdrawal symptoms and possible DTs Bilateral lower extremity weakness right greater than left. Ruled out acute CVA. Possible generalized weakness and deconditioning. Paroxysmal atrial fibrillation. On anticoagulant with eliquis. Rate is controlled. Elevated liver enzymes likely due to alcohol Hepatitis. Recent history of GI bleed. 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 Previous history of smoking plan: Patient was started on Cardizem drip. Continue with telemetry monitoring. Continue with alcohol withdrawal protocol Patient will be continued on PT OT and replace electrolyte. Continue with home medications including Lasix. Monitor blood pressure closely. Monitor H&H. Follow up liver enzymes. Encourage oral intake and protein supplements. Further recommendations based on the clinical course. Prognosis is guarded with multiple medical problems and comorbid conditions. Patient may need rehab transfer. = Time with Patient: Greater than 30
[2019-09-22] MEDS: HYDROCORTISONE 10 MG TAB PO SCH (22:36)
[2019-09-22 22:52] LABS: Anisocytosis Moderate; Basophils % (A) 0 %; Eosinophils # (A) 0.1 k/uL (0-0.7); Eosinophils % (A) 1 %; HCT 28.4 % (39.0-53.0); HGB 8.6 gm/dL (13.0-17.5); Hypochromasia Moderate; Lymphocytes # (A) 1.3 k/uL (1.0-4.8); Lymphocytes % (A) 19 %; MCHC 30.3 g/dL (31.0-37.0); Macrocytosis Moderate; Mean Platelet Volume 8.1; Monocytes # (A) 0.5 k/uL (0-1.0); Monocytes % (A) 8 %; Neutrophils # (A) 4.6 k/uL (1.3-7.7); Neutrophils % (A) 68 %; Platelet Count 188 k/uL (150-450); RBC 2.87 m/uL (4.30-5.90); RDW 22.2 % (11.5-15.5); WBC 6.8 k/uL (3.8-10.6)
[2019-09-22 23:16] LABS: African American GFR (CKD) >90 (>60 ml/min/1.73 sqM); Anion Gap 2 mmol/L; Blood Urea Nitrogen 16 mg/dL (9-20); Carbon Dioxide 31 mmol/L (22-30); Chloride 109 mmol/L (98-107); Glucose 102 mg/dL (74-99); Magnesium 1.9 mg/dL (1.6-2.3); Non-African American GFR(CKD) 81 (>60 ml/min/1.73 sqM); Potassium 3.4 mmol/L (3.5-5.1); Sodium 142 mmol/L (137-145)
[2019-09-22] MEDS ORDERED: Potassium Replacement Protocol 1 EACH MISC MISCELLANE PRN (23:50)
[2019-09-23] MEDS: POTASSIUM CHLORIDE 10 MEQ in WATER FOR INJECTION 1 100ML.BAG IVPB SCH ×4 (00:33→05:27)
[2019-09-23] MEDS: DILTIAZEM 125 MG in SODIUM CHLORIDE 0.9% 100 ML IV SCH ×2 (00:36→16:40)
[2019-09-23] MEDS: LORazepam 2 MG/ML INJ IV PRN ×3 (01:38→13:22)
[2019-09-23] MEDS: PANTOPRAZOLE 40 MG TABLET PO SCH ×2 (06:18→16:42)
[2019-09-23 08:04] LABS: ALT 58 U/L (4-49); AST 39 U/L (17-59); African American GFR (CKD) >90 (>60 ml/min/1.73 sqM); Albumin 1.9 g/dL (3.5-5.0); Alkaline Phosphatase 285 U/L (38-126); Anion Gap 3 mmol/L; Bilirubin, Delta 1.1 mg/dL (0.0-0.2); Bilirubin,Unconjugated 0.9 mg/dL (0.0-1.1); Blood Urea Nitrogen 14 mg/dL (9-20); Calcium 7.8 mg/dL (8.4-10.2); Carbon Dioxide 31 mmol/L (22-30); Chloride 109 mmol/L (98-107); Glucose 78 mg/dL (74-99); Non-African American GFR(CKD) 86 (>60 ml/min/1.73 sqM); Potassium 3.6 mmol/L (3.5-5.1); Sodium 143 mmol/L (137-145); Total Protein 4.4 g/dL (6.3-8.2)
[2019-09-23 08:06] LABS: Anisocytosis Moderate; Basophils % (A) 0 %; Eosinophils # (A) 0.2 k/uL (0-0.7); Eosinophils % (A) 3 %; HCT 27.6 % (39.0-53.0); HGB 8.3 gm/dL (13.0-17.5); Hypochromasia Marked; Lymphocytes # (A) 1.2 k/uL (1.0-4.8); Lymphocytes % (A) 20 %; MCH 31.2 pg (25.0-35.0); MCHC 30.1 g/dL (31.0-37.0); MCV 103.7 fL (80.0-100.0); Macrocytosis Marked; Mean Platelet Volume 8.6; Monocytes # (A) 0.5 k/uL (0-1.0); Monocytes % (A) 9 %; Neutrophils # (A) 3.8 k/uL (1.3-7.7); Neutrophils % (A) 64 %; Platelet Count 189 k/uL (150-450); RBC 2.66 m/uL (4.30-5.90); RDW 22.1 % (11.5-15.5); WBC 5.8 k/uL (3.8-10.6)
[2019-09-23 08:30] LABS: Target Cells Present
--- NOTE | 2019-09-23 09:25 | P.CRDCN ---
History of Present Illness Consult date: 09/23/19 Requesting physician: Jamal Steele Consult reason: atrial fibrillation Chief complaint: Weakness History of present illness: This is a 69-year-old gentleman with past medical history significant for chronic diastolic heart failure, paroxysmal atrial fibrillation on long-term anticoagulation in the form of Eliquis, patient does have recent history of GI bleeding, chronic alcohol abuse, history of right renal cell carcinoma, he follows with Dr. Mcadams in the office. Patient apparently presented to the hospital with symptoms of progressively worsening weakness. At the time of my examination, patient is fairly unresponsive, he does awake to voice and shaking. He is currently on [facility] protocol. was admitted to the hospital on September 19, his hemoglobin this morning is 8.3 with a platelet count of 189, white blood cell count 5.8, sodium 143, potassium 3.6, BUN 14, creatinine 0.9, his magnesium on admission was 1.2, 1.9 this morning, his AST on admission was 80 ALT 119 alk phos 407, this morning 39, 58, and 285. His troponins 3 have been negative. TSH 3.9. CAT scan of the brain was performed which revealed cerebral atrophy with no acute intracranial abnormality. Chest x-ray showed pleural effusions and bibasilar atelectasis, linear infiltrate improved with prior exam. CAT scan of the abdomen was limited, it shows marked retroperitoneal lipomatosis , CT also shows marked fatty infiltration of the liver. Chest x-ray repeated this morning showed decreased lung volumes and increasing small bilateral pleural effusions. Blood pressure this morning 127/7 0 with a heart rate of 108, 95% on 3 L of oxygen. At the time of my examination this morning, patient arouses if you shake him a little in the bed and call out his name, he is confused he is unsure of where he is at. Not currently taking anything orally Past Medical History Past Medical History: Atrial Fibrillation, Blood Disorder, Cancer, Osteoarthritis (OA), Pulmonary Embolus (PE) Additional Past Medical History / Comment(s): Afib/RVR, pulmonary embolism L lung, pancreatitis multiple times, ETOH abuse, was diagnosed with R renal carcinoma with cryoablation at [facility], BPH, past R lung pneumo with chest tube, diverticulitis, benign colon polyps, arthritis multiple joints, abdominal hernias. Dizziness fall and right rib fractures 09/15/18,. Adrenal insufficiently History of Any Multi-Drug Resistant Organisms: None Reported Past Surgical History: Bariatric Surgery, Bowel Resection, Cholecystectomy, Hernia Repair, Joint Replacement Additional Past Surgical History / Comment(s): Recent (2017) r kidney lesion cryoablation at [facility], 2013 bowel resection d/t viscus perf with colostomy later reversed , gastric sleeve converted to darrell-en-Y 08/2014-post op wound infection, paraesphogeal hiat hernia repair, R inguinal and umbilical hernia repairs, colonoscopies, L total knee arthroplasty., Past Anesthesia/Blood Transfusion Reactions: No Reported Reaction Past Psychological History: No Psychological Hx Reported Smoking Status: Former smoker Past Alcohol Use History: None Reported Past Drug Use History: None Reported - Past Family History Father Family Medical History: COPD, Myocardial Infarction (PA) Additional Family Medical History / Comment(s): Father from a PA at the age of 69yrs. Mother Family Medical History: Cancer Additional Family Medical History / Comment(s): Mother from ovarian cancer at the age of 69yrs. Sister(s) Family Medical History: Cancer Additional Family Medical History / Comment(s): at age 74yrs. Had breast cancer and a defibrillator Medications and Allergies Home Medications Medication Instructions Recorded Confirmed Type Allopurinol [Zyloprim] 300 mg PO DAILY@0900 #30 tab 08/12/19 09/19/19 Rx Apixaban [Eliquis] 5 mg PO BID@0900,2100 #30 tab 08/12/19 09/19/19 Rx Cholecalciferol [Vitamin D3 (25 5,000 unit PO DAILY@0900 #30 tab 08/12/19 09/19/19 Rx Mcg = 1000 Iu)] Ferrous Gluconate 324 mg PO BID@0900,2100 #30 tab 08/12/19 09/19/19 Rx Furosemide [Lasix] 40 mg PO DAILY@0900 #30 tab 08/12/19 09/19/19 Rx Midodrine [ProAmatine] 15 mg PO TID@0800,1200,1700 #60 tab 08/12/19 09/19/19 Rx Multivitamins, Thera [Multivitamin 1 each PO DAILY@0900 #30 tab 08/12/19 09/19/19 Rx (formulary)] Cyclobenzaprine [Flexeril] 10 mg PO DAILY PRN 09/19/19 09/19/19 History Metoprolol Tartrate 25 mg PO BID 09/19/19 09/19/19 History Pantoprazole Sodium [Protonix] 40 mg PO BID 09/19/19 09/19/19 History Hydrocortisone [Cortef] 5 mg PO HS 09/20/19 09/20/19 History Hydrocortisone [Cortef] 10 mg PO DAILY 09/20/19 09/20/19 History Potassium Chloride ER [K-Dur 20] 20 meq PO DAILY 09/20/19 09/20/19 History Allergies Allergy/AdvReac Type Severity Reaction Status Date / Time No Known Allergies Allergy Verified 09/19/19 18:30 Physical Exam Vitals: Vital Signs Temp Pulse Resp BP Pulse Ox 09/23/19 04:00 98.5 F 101 H 19 127/73 95 09/22/19 23:39 98.4 F 107 H 19 117/80 95 09/22/19 20:00 97.8 F 91 19 133/71 96 09/22/19 16:15 98.3 F 116 H 18 119/72 94 L 09/22/19 16:00 123 H 09/22/19 15:50 133 H 136/85 09/22/19 15:47 153 H 153/76 09/22/19 15:38 109 H 140/88 09/22/19 15:32 145 H 20 185/79 91 L 09/22/19 15:29 99.1 F 156 H 119/79 09/22/19 11:23 99.0 F 122 H 20 142/88 98 Intake and Output 09/22/19 09/23/19 09/23/19 22:59 06:59 14:59 Intake Total 120 382.333 0 Balance 120 382.333 0 Intake: IV 10 90 0.9 10 90 Intake, IV Titration 110 292.333 Amount Diltiazem 125 mg In 10 92.333 Sodium Chloride 0.9% 100 ml @ 10 MG/HR 10 mls/hr IV .[id number] [facility] Rx#: [id number] Magnesium Sulfate-D5w Pmx 100 1 gm In Dextrose/Water 1 100ml.bag @ 100 mls/hr IVPB Q1H [facility] Rx#: [id number] Potassium Chloride 10 meq 200 In Water For Injection 1 100ml.bag @ 100 mls/hr IVPB Q1HR [facility] Rx#: [id number] Oral 0 Other: Voiding Method Diaper Incontinent # Voids 1 4 Weight 107 kg PHYSICAL EXAMINATION: GENERAL: 69-year-old gentleman in no acute distress at the time of my examination HEENT: Head is atraumatic, normocephalic. Pupils equal, round. Sclera anicteric. Conjunctiva are clear. Mucous membranes of the mouth are moist. Neck is supple. There is no elevated jugular venous pressure. No carotid bruit is heard. HEART EXAMINATION: Heart S1 and S2 irregularly irregular CHEST EXAMINATION: Lungs are clear anteriorly ABDOMEN: Soft, nontender. Bowel sounds are heard. No organomegaly noted. EXTREMITIES: 2+ peripheral pulses with evidence of peripheral edema and no calf tenderness noted. NEUROLOGIC [patient is sleepy, confused, arouses to verbal stimuli Results 09/23/19 06:52 09/23/19 06:52 Cardiac Enzymes 09/23/19 Range/Units 06:52 AST 39 (17-59) U/L CBC 09/22/19 09/23/19 Range/Units 22:45 06:52 WBC 6.8 5.8 (3.8-10.6) k/uL RBC 2.87 L 2.66 L (4.30-5.90) m/uL Hgb 8.6 L 8.3 L (13.0-17.5) gm/dL Hct 28.4 L 27.6 L (39.0-53.0) % Plt Count 188 189 (150-450) k/uL Comprehensive Metabolic Panel 09/22/19 09/22/19 09/23/19 Range/Units 16:46 22:45 06:52 Sodium 142 143 (137-145) mmol/L Potassium 4.2 3.4 L 3.6 (3.5-5.1) mmol/L Chloride 109 H 109 H (98-107) mmol/L Carbon Dioxide 31 H 31 H (22-30) mmol/L BUN 16 14 (9-20) mg/dL Creatinine 0.97 0.91 (0.66-1.25) mg/dL Glucose 102 H 78 (74-99) mg/dL Calcium 8.0 L 7.8 L (8.4-10.2) mg/dL Unconjugated Bilirubin 0.9 (0.0-1.1) mg/dL AST 39 (17-59) U/L ALT 58 H (4-49) U/L Alkaline Phosphatase 285 H (38-126) U/L Total Protein 4.4 L (6.3-8.2) g/dL Albumin 1.9 L (3.5-5.0) g/dL Current Medications Generic Name Dose Route Start Last Admin Trade Name Freq PRN Reason Stop Dose Admin Allopurinol 300 mg 09/20/19 09:00 09/22/19 09:04 Zyloprim PO 300 mg DAILY@0900 [facility] Administration Apixaban 5 mg 09/19/19 21:00 09/22/19 22:36 Eliquis PO Not Given BID@899,2099 [facility] Cholecalciferol 5,000 unit 09/20/19 09:00 09/22/19 09:05 Vitamin D3 (25 Mcg = 1000 Iu) PO 5,000 unit DAILY@0900 [facility] Administration Cyclobenzaprine HCl 10 mg 09/19/19 20:17 09/21/19 20:40 Flexeril PO 10 mg DAILY PRN Administration MUSCLE SPASMS Ferrous Sulfate 325 mg 09/19/19 21:00 09/22/19 22:36 Feosol PO Not Given BID@899,2099 [facility] Furosemide 40 mg 09/20/19 09:00 09/22/19 09:04 Lasix PO 40 mg DAILY@0900 [facility] Administration Hydrocortisone 10 mg 09/19/19 21:00 09/22/19 22:36 Cortef PO Not Given HS@2100 [facility] Hydrocortisone 20 mg 09/20/19 09:00 09/22/19 09:04 Cortef PO 20 mg DAILY@0900 [facility] Administration Diltiazem HCl 125 mg/ Sodium 125 mls @ 10 mls/hr 09/22/19 15:15 09/23/19 00:36 Chloride IV 10 mg/hr .[id number] JESSY 10 mls/hr Administration 10 MG/HR Lorazepam 1 mg 09/22/19 06:14 Ativan IV Q2HR PRN CIWA 8 or 9 Lorazepam 1 mg 09/22/19 06:14 09/23/19 07:28 Ativan IV 1 mg Q1HR PRN Administration CIWA 10 to 15 Lorazepam 2 mg 09/22/19 06:14 09/23/19 01:38 Ativan IV 09/24/19 06:14 2 mg Q10M PRN Administration CIWA 16 or higher Metoprolol Tartrate 25 mg 09/19/19 21:00 09/22/19 22:37 Lopressor PO Not Given BID [facility] Midodrine 15 mg 09/20/19 08:00 09/22/19 16:53 Proamatine PO Not Given TID@0800,1200,1700 [facility] Miscellaneous Information 1 each 09/22/19 23:50 Potassium Per Protocol MISCELLANE DAILY PRN Per Protocol Protocol Multivitamins 1 each 09/20/19 09:00 09/22/19 09:05 Theragran PO 1 each DAILY@0900 [facility] Administration Naloxone HCl 0.2 mg 09/19/19 20:14 Narcan IV Q2M PRN Opioid Reversal Ondansetron HCl 4 mg 09/19/19 20:14 Zofran IVP Q8HR PRN Nausea And Vomiting Pantoprazole Sodium 40 mg 09/19/19 21:00 09/23/19 06:18 Protonix PO Not Given AC-BID [facility] Potassium Chloride 40 meq 09/20/19 09:00 09/22/19 09:06 K-Dur 20 PO 40 meq DAILY@0900 [facility] Administration Intake and Output 09/22/19 09/23/19 09/23/19 22:59 06:59 14:59 Intake Total 120 382.333 0 Balance 120 382.333 0 Intake: IV 10 90 0.9 10 90 Intake, IV Titration 110 292.333 Amount Diltiazem 125 mg In 10 92.333 Sodium Chloride 0.9% 100 ml @ 10 MG/HR 10 mls/hr IV .[id number] [facility] Rx#: [id number] Magnesium Sulfate-D5w Pmx 100 1 gm In Dextrose/Water 1 100ml.bag @ 100 mls/hr IVPB Q1H [facility] Rx#: [id number] Potassium Chloride 10 meq 200 In Water For Injection 1 100ml.bag @ 100 mls/hr IVPB Q1HR [facility] Rx#: [id number] Oral 0 Other: Voiding Method Diaper Incontinent # Voids 1 4 Weight 107 kg 09/23/19 06:52 09/23/19 06:52 EKG Interpretations (text) EKG shows atrial fibrillation with rapid ventricular response Assessment and Plan Plan: Assessment and plan #1 bilateral lower extremity weakness #2 atrial fibrillation with rapid ventricular response, patient has history of paroxysmal atrial fibrillation #3 elevated liver enzymes, likely secondary to alcohol hepatitis #4 diastolic congestive heart failure, chronic #5 alcohol abuse history, currently on [facility] protocol #6 hypoalbuminemia, likely secondary to malnutrition #7 history of PE #8 history of pancreatitis #9 history of renal carcinoma #10 history of recent GI bleeds #11 prior history of smoking Plan Patient is not taking any oral medications at present, we will continue with the IV Cardizem. Patient's most recent echocardiogram with Doppler study was performed in July 2019 which revealed an ejection fraction of 60-65%. Hemoglobin this morning is 8.3, it appears that the patient may have a bit his tongue, he has significant swelling of the tongue and evidence of Bleeding in his mouth, because of this along with the patient's history of GI bleed, we will hold off on anticoagulation at this time. Further recommendations to follow. DNP note has been reviewed, I agree with a documented findings and plan of care. Patient was seen and examined.
[2019-09-23] MEDS: APIXABAN 5 MG TAB PO SCH ×2 (10:01→19:51)
[2019-09-23] MEDS: CHOLECALCIFEROL 1,000 UNIT TAB PO SCH (10:01)
[2019-09-23] MEDS: MULTIVITAMINS, THERA 1 EACH TAB PO SCH (10:02)
[2019-09-23] MEDS: METOPROLOL TARTRATE 25 MG TAB PO SCH ×2 (10:02→23:29)
[2019-09-23] MEDS: HYDROCORTISONE 20 MG TAB PO SCH ×2 (10:02→23:29)
[2019-09-23] MEDS: FERROUS SULFATE 325 MG TAB PO SCH ×2 (10:02→23:29)
[2019-09-23] MEDS: FUROSEMIDE 40 MG TAB PO SCH (10:02)
[2019-09-23] MEDS: MIDODRINE 5 MG TAB PO SCH ×3 (10:03→16:42)
[2019-09-23] MEDS: ALLOPURINOL 300 MG TAB PO SCH (10:03)
[2019-09-23] MEDS: POTASSIUM CHLORIDE ER 20 MEQ TAB.ER PO SCH (10:03)
[2019-09-23] MEDS: CYCLOBENZAPRINE 10 MG TAB PO PRN (12:36)
[2019-09-23] MEDS: HYDROCORTISONE 10 MG TAB PO SCH (23:29)
--- NOTE | 2019-09-24 00:14 | P.PN ---
Subjective Progress Note Date: 09/23/19 Principal diagnosis: Bilateral lower extremity weakness Acute delirium Acute alcohol withdrawal symptoms Atrial fibrillation with rapid ventricular rate Patient is a 69-year-old male with a known history of CHF with diastolic dysfunction chronic, paroxysmal atrial fibrillation on long-term anticoagulation with Eliquis, alcohol abuse and history of right renal carcinoma presents to Hospital with complaints of leg weakness. Patient has been having bilateral leg weakness which is worse on the right side. He relates that he first noticed this upon waking this morning at approximately 8 AM. He states that he almost fell getting out of bed. He was able to get around the house with his walker throughout the day but it was somewhat difficult. He states that he then later fell tonight shortly prior to arrival and was unable to get up. He rolled around on the ground for several hours. He denies obtaining any injuries. He did not hit his head. He denies any known vascular problems previously. He denies any history of CVA or TIA. He states that he has been doing overall fairly well over the past several days. He denies any recent illnesses or fevers. There's been no urinary symptoms there's been no chest pain or shortness of breath. No other complaints or modifying factors. It appears that his upper extremities are unaffected. He does complain of some numbness to his bilateral lower extremities as well as the left leg being worse in the right. There is no other paresthesias. Patient does have previous history of fall. Denied any back pain. Patient was admitted to the hospital with GI bleed/rectal bleed recently. Chest x-ray showed pleural effusions and bibasilar atelectasis and linear infiltrate improved compared to last exam. CT head showed cerebral atrophy. No acute intracranial process. Ultrasound of the abdomen shows marked retroperitoneal lipomatosis and marked fatty infiltration of liver. WBC 4.9, hemoglobin 9.2, INR 1.3, potassium 3.4 BUE and 15 and creatinine 1.1 sodium 142, magnesium 1.2 AST 80 and ALT 119, alk phos 407, albumin 2.3 and TSH 3.94 Troponin 3 negative Urinalysis is negative for infection. 09/21/2019 Patient says that his leg weakness is better. Swelling is also improving. Patient is able to ambulate with physical therapy. Medications 1.6 today which is being replaced. Liver enzymes are trending down slowly. Patient has been afebrile. No complaints of chest pain or shortness of breath. No nausea vomiting or abdominal pain. Tolerating oral diet. No headache or dizziness. No dysuria or hematuria. 09/22/2019 Patient is more confused and delirious this morning. Patient is being continued on alcohol withdrawal protocol. Patient went into atrial fibrillation with rapid regular rate and rapid response team was called. Patient was started on Cardizem drip and transferred to telemetry unit. Denied any complaints of chest pain. Patient did have shortness of breath. No nausea vomiting. Denied any abdominal pain. Patient has been afebrile. Patient does have low potassium and magnesium. Will be replaced. Liver enzymes are trending down. Cardiology will be consulted for further evaluation of it fibrillation. Patient does have history of paroxysmal atrial fibrillation on anticoagulation with Eliquis. On 12/09/2019 Patient is still confused and is delirious. Continued on alcohol withdrawal protocol. Otherwise heart rate is still elevated discontinued on Cardizem drip. Eliquis is on hold due to tongue bite and bleeding. Cardiology is following. Patient has been afebrile. Hemoglobin is 8.3. Liver enzymes slightly improved. Patient denied any complaints of chest pain or worsening shortness of breath. Leg swelling improved. Current medications reviewed. Active Medications Allopurinol (Zyloprim) 300 mg PO DAILY@899 [facility] Last Admin: 09/21/19 08:28 Dose: 300 mg Documented by: Apixaban (Eliquis) 5 mg PO BID@ [facility] Last Admin: 09/21/19 20:38 Dose: 5 mg Documented by: Cholecalciferol (Vitamin D3 (25 Mcg = 1000 Iu)) 5,000 unit PO DAILY@899 [facility] Last Admin: 09/21/19 08:29 Dose: 5,000 unit Documented by: Cyclobenzaprine HCl (Flexeril) 10 mg PO DAILY PRN PRN Reason: MUSCLE SPASMS Last Admin: 09/21/19 20:40 Dose: 10 mg Documented by: Ferrous Sulfate (Feosol) 325 mg PO BID@ [facility] Last Admin: 09/21/19 20:38 Dose: 325 mg Documented by: Furosemide (Lasix) 40 mg PO DAILY@09 [facility] Last Admin: 09/21/19 08:29 Dose: 40 mg Documented by: Hydrocortisone (Cortef) 10 mg PO HS@2099 [facility] Last Admin: 09/21/19 20:38 Dose: 10 mg Documented by: Hydrocortisone (Cortef) 20 mg PO DAILY@0900 [facility] Last Admin: 09/21/19 08:29 Dose: 20 mg Documented by: Magnesium Sulfate/Dextrose 1 (gm/ IV Solution) 100 mls @ 100 mls/hr IVPB Q1H [facility] Stop: 09/22/19 01:44 Metoprolol Tartrate (Lopressor) 25 mg PO BID [facility] Last Admin: 09/21/19 20:38 Dose: 25 mg Documented by: Midodrine (Proamatine) 15 mg PO TID@0800,1200,1700 [facility] Last Admin: 09/21/19 17:34 Dose: 15 mg Documented by: Multivitamins (Theragran) 1 each PO DAILY@0900 [facility] Last Admin: 09/21/19 08:30 Dose: 1 each Documented by: Naloxone HCl (Narcan) 0.2 mg IV Q2M PRN PRN Reason: Opioid Reversal Ondansetron HCl (Zofran) 4 mg IVP Q8HR PRN PRN Reason: Nausea And Vomiting Pantoprazole Sodium (Protonix) 40 mg PO AC-BID [facility] Last Admin: 09/21/19 17:34 Dose: 40 mg Documented by: Potassium Chloride (K-Dur 20) 40 meq PO DAILY@0900 [facility] Last Admin: 09/21/19 08:29 Dose: 40 meq Documented by: Objective - Vital Signs Vital signs: Vital Signs Temp 97.9 F 09/23/19 08:15 Pulse 106 H 09/23/19 12:15 Resp 18 09/23/19 12:15 BP 140/69 09/23/19 12:15 Pulse Ox 95 09/23/19 12:15 Intake & Output 09/22/19 09/23/19 09/23/19 18:59 06:59 18:59 Intake Total 502.333 0 Balance 502.333 0 Weight 107 kg Intake: IV 100 0.9 100 Intake, IV Titration 402.333 Amount Diltiazem 125 mg In 102.333 Sodium Chloride 0.9% 100 ml @ 10 MG/HR 10 mls/hr IV .[id number] [facility] Rx#: [id number] Magnesium Sulfate-D5w Pmx 100 1 gm In Dextrose/Water 1 100ml.bag @ 100 mls/hr IVPB Q1H [facility] Rx#: [id number] Potassium Chloride 10 meq 200 In Water For Injection 1 100ml.bag @ 100 mls/hr IVPB Q1HR [facility] Rx#: [id number] Oral 0 Other: Voiding Method Urinal Diaper Diaper Incontinent # Voids 4 4 3 # Bowel Movements 3 - Exam PHYSICAL EXAMINATION: Patient is lying in the bed comfortably, no acute distress, awake alert and delirious and confused.. HEENT: Normocephalic. Neck is supple. Pupils reactive. Nostrils clear. Oral cavity is moist. Ears reveal no drainage. Neck reveals no JVD, carotid bruits, or thyromegaly. CHEST EXAMINATION: Trachea is central. Symmetrical expansion. Bibasilar diminished air entry. No wheezing ,Lung valdez clear to auscultation and perc ussion. CARDIAC: Normal S1, S2 with no gallops. No murmurs . Irregularly irregular rhythm ABDOMEN: Soft. Bowel sounds normal. No organomegaly. No abdominal bruits. Extremities: 2+ bilateral pedal edema. No clubbing or cyanosis Neurologically awake, alert and delirious. with well-coordinated movements. No focal deficits noted Skin: No rash or skin lesions. Psychiatric: Coperative. Nonsuicidal Musculoskeletal: No joint swelling or deformity. Normal range of motion. - Labs CBC & Chem 7: 09/23/19 06:52 09/23/19 06:52 Labs: Abnormal Lab Results - Last 24 Hours (Table) 09/22/19 09/22/19 09/22/19 Range/Units 22:45 22:45 22:45 RBC 2.87 L (4.30-5.90) m/uL Hgb 8.6 L (13.0-17.5) gm/dL Hct 28.4 L (39.0-53.0) % MCV (80.0-100.0) fL MCHC 30.3 L (31.0-37.0) g/dL RDW 22.2 H (11.5-15.5) % Macrocytosis Potassium 3.4 L (3.5-5.1) mmol/L Chloride 109 H (98-107) mmol/L Carbon Dioxide 31 H (22-30) mmol/L Glucose 102 H (74-99) mg/dL Plasma Lactic Acid Sung <0.5 L (0.7-2.0) mmol/L Calcium 8.0 L (8.4-10.2) mg/dL Total Bilirubin (0.2-1.3) mg/dL Delta Bilirubin (0.0-0.2) mg/dL ALT (4-49) U/L Alkaline Phosphatase (38-126) U/L Total Protein (6.3-8.2) g/dL Albumin (3.5-5.0) g/dL 09/23/19 09/23/19 Range/Units 06:52 06:52 RBC 2.66 L (4.30-5.90) m/uL Hgb 8.3 L (13.0-17.5) gm/dL Hct 27.6 L (39.0-53.0) % MCV 103.7 H (80.0-100.0) fL MCHC 30.1 L (31.0-37.0) g/dL RDW 22.1 H (11.5-15.5) % Macrocytosis Marked A Potassium (3.5-5.1) mmol/L Chloride 109 H (98-107) mmol/L Carbon Dioxide 31 H (22-30) mmol/L Glucose (74-99) mg/dL Plasma Lactic Acid Sung (0.7-2.0) mmol/L Calcium 7.8 L (8.4-10.2) mg/dL Total Bilirubin 2.0 H (0.2-1.3) mg/dL Delta Bilirubin 1.1 H (0.0-0.2) mg/dL ALT 58 H (4-49) U/L Alkaline Phosphatase 285 H (38-126) U/L Total Protein 4.4 L (6.3-8.2) g/dL Albumin 1.9 L (3.5-5.0) g/dL Assessment and Plan Assessment: Atrial fibrillation with rapid ventricular rate. Acute alcohol withdrawal symptoms and possible DTs Bilateral lower extremity weakness right greater than left. Ruled out acute CVA. Possible generalized weakness and deconditioning. Paroxysmal atrial fibrillation. On anticoagulant with eliquis. Rate is controlled. Elevated liver enzymes likely due to alcohol Hepatitis. Recent history of GI bleed. 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 Previous history of smoking plan: Patient was started on Cardizem drip. Continue with telemetry monitoring. Continue with alcohol withdrawal protocol Patient will be continued on PT OT and replace electrolyte. Continue with home medications including Lasix. Monitor blood pressure closely. Monitor H&H. Follow up liver enzymes. Encourage oral intake and protein supplements. Further recommendations based on the clinical course. Prognosis is guarded with multiple medical problems and comorbid conditions. Patient may need rehab transfer. = Time with Patient: Greater than 30
[2019-09-24] MEDS: PANTOPRAZOLE 40 MG TABLET PO SCH ×2 (06:48→16:44)
[2019-09-24] MEDS: DILTIAZEM 125 MG in SODIUM CHLORIDE 0.9% 100 ML IV SCH ×2 (06:48→16:47)
[2019-09-24] MEDS: MIDODRINE 5 MG TAB PO SCH ×3 (08:33→16:44)
[2019-09-24] MEDS: METOPROLOL TARTRATE 25 MG TAB PO SCH ×2 (08:33→20:51)
[2019-09-24] MEDS: ALLOPURINOL 300 MG TAB PO SCH (08:33)
[2019-09-24] MEDS: POTASSIUM CHLORIDE ER 20 MEQ TAB.ER PO SCH (08:33)
[2019-09-24] MEDS: FUROSEMIDE 40 MG TAB PO SCH (08:33)
[2019-09-24] MEDS: FERROUS SULFATE 325 MG TAB PO SCH ×2 (08:33→20:51)
[2019-09-24] MEDS: MULTIVITAMINS, THERA 1 EACH TAB PO SCH (08:33)
[2019-09-24] MEDS: THIAMINE 100 MG TAB PO SCH (08:33)
[2019-09-24] MEDS: CHOLECALCIFEROL 1,000 UNIT TAB PO SCH (08:34)
[2019-09-24] MEDS: HYDROCORTISONE 20 MG TAB PO SCH (08:37)
[2019-09-24] MEDS: CYCLOBENZAPRINE 10 MG TAB PO PRN (11:30)
--- NOTE | 2019-09-24 13:19 | P.PN ---
Subjective Progress Note Date: 09/24/19 This is a 69-year-old gentleman with past medical history significant for chronic diastolic heart failure, paroxysmal atrial fibrillation on long-term anticoagulation in the form of Eliquis, patient does have recent history of GI bleeding, chronic alcohol abuse, history of right renal cell carcinoma, he follows with Dr. Mcadams in the office. Patient apparently presented to the hospital with symptoms of progressively worsening weakness. At the time of my examination, patient is fairly unresponsive, he does awake to voice and shaking. [facility] was admitted to the hospital on September 19, his hemoglobin this morning is 8.3 with a platelet count of 189, white blood cell count 5.8, sodium 143, potassium 3.6, BUN 14, creatinine 0.9, his magnesium on admission was 1.2, 1.9 this morning, his AST on admission was 80 ALT 119 alk phos 407, this morning 39, 58, and 285. His troponins 3 have been negative. TSH 3.9. CAT scan of the brain was performed which revealed cerebral atrophy with no acute intracranial abnormality. Chest x-ray showed pleural effusions and bibasilar atelectasis, linear infiltrate improved with prior exam. CAT scan of the abdomen was limited, it shows marked retroperitoneal lipomatosis , CT also shows marked fatty infiltration of the liver. Chest x-ray repeated this morning showed decreased lung volumes and increasing small bilateral pleural effusions. Blood pressure this morning 127/70 with a heart rate of 108, 95% on 3 L of oxygen. At the time of my examination this morning, patient arouses if you shake him a little in the bed and call out his name, he is confused he is unsure of where he is at. Not currently taking anything orally. 09/24/2019 Patient seen and examined this morning, blood pressure 135/60 with a heart rate in the 80s, 97% on 3 L of oxygen. Patient is able to swallow oral medications today crushed in applesauce. We will discontinue the IV Cardizem drip. In normal sinus rhythm today. Objective - Vital Signs Vital signs: Vital Signs Temp 98.7 F 09/24/19 11:24 Pulse 82 09/24/19 11:24 Resp 20 09/24/19 11:24 BP 135/65 09/24/19 11:24 Pulse Ox 97 09/24/19 11:24 Intake & Output 09/23/19 09/24/19 09/24/19 18:59 06:59 18:59 Intake Total 125 545 Balance 125 545 Weight 107 kg Intake: IV 180 0.9 180 Intake, IV Titration 125 125 Amount Diltiazem 125 mg In 125 125 Sodium Chloride 0.9% 100 ml @ 10 MG/HR 10 mls/hr IV .[id number] [facility] Rx#: [id number] Oral 0 240 Other: Voiding Method Diaper Diaper Incontinent # Voids 3 4 1 - Exam PHYSICAL EXAMINATION: GENERAL: 69-year-old gentleman in no acute distress at the time of my examination HEENT: Head is atraumatic, normocephalic. Pupils equal, round. Sclera anicteric. Conjunctiva are clear. Mucous membranes of the mouth are moist. Neck is supple. There is no elevated jugular venous pressure. No carotid bruit is heard. HEART EXAMINATION: Heart S1 and S2 normal CHEST EXAMINATION: Lungs are clear anteriorly ABDOMEN: Soft, nontender. Bowel sounds are heard. No organomegaly noted. EXTREMITIES: 2+ peripheral pulses with evidence of peripheral edema and no calf tenderness noted. NEUROLOGIC [patient is sleepy, confused, arouses to verbal stimuli - Labs CBC & Chem 7: 09/23/19 06:52 09/23/19 06:52 Assessment and Plan Plan: Assessment and plan #1 bilateral lower extremity weakness #2 atrial fibrillation with rapid ventricular response, patient has history of paroxysmal atrial fibrillation #3 elevated liver enzymes, likely secondary to alcohol hepatitis #4 diastolic congestive heart failure, chronic #5 alcohol abuse history, currently on [employer] protocol #6 hypoalbuminemia, likely secondary to malnutrition #7 history of PE #8 history of pancreatitis #9 history of renal carcinoma #10 history of recent GI bleeds #11 prior history of smoking Plan We will discontinue the IV Cardizem drip continue oral beta kary. DNP note has been reviewed, I agree with a documented findings and plan of care. Patient was seen and examined.
[2019-09-24] MEDS: HYDROCORTISONE 10 MG TAB PO SCH (20:51)
--- NOTE | 2019-09-24 23:25 | P.PN ---
Subjective Progress Note Date: 09/24/19 Principal diagnosis: Bilateral lower extremity weakness Acute delirium Acute alcohol withdrawal symptoms Atrial fibrillation with rapid ventricular rate Patient is a 69-year-old male with a known history of CHF with diastolic dysfunction chronic, paroxysmal atrial fibrillation on long-term anticoagulation with Eliquis, alcohol abuse and history of right renal carcinoma presents to Hospital with complaints of leg weakness. Patient has been having bilateral leg weakness which is worse on the right side. He relates that he first noticed this upon waking this morning at approximately 8 AM. He states that he almost fell getting out of bed. He was able to get around the house with his walker throughout the day but it was somewhat difficult. He states that he then later fell tonight shortly prior to arrival and was unable to get up. He rolled around on the ground for several hours. He denies obtaining any injuries. He did not hit his head. He denies any known vascular problems previously. He denies any history of CVA or TIA. He states that he has been doing overall fairly well over the past several days. He denies any recent illnesses or fevers. There's been no urinary symptoms there's been no chest pain or shortness of breath. No other complaints or modifying factors. It appears that his upper extremities are unaffected. He does complain of some numbness to his bilateral lower extremities as well as the left leg being worse in the right. There is no other paresthesias. Patient does have previous history of fall. Denied any back pain. Patient was admitted to the hospital with GI bleed/rectal bleed recently. Chest x-ray showed pleural effusions and bibasilar atelectasis and linear infiltrate improved compared to last exam. CT head showed cerebral atrophy. No acute intracranial process. Ultrasound of the abdomen shows marked retroperitoneal lipomatosis and marked fatty infiltration of liver. WBC 4.9, hemoglobin 9.2, INR 1.3, potassium 3.4 BUE and 15 and creatinine 1.1 sodium 142, magnesium 1.2 AST 80 and ALT 119, alk phos 407, albumin 2.3 and TSH 3.94 Troponin 3 negative Urinalysis is negative for infection. 09/21/2019 Patient says that his leg weakness is better. Swelling is also improving. Patient is able to ambulate with physical therapy. Medications 1.6 today which is being replaced. Liver enzymes are trending down slowly. Patient has been afebrile. No complaints of chest pain or shortness of breath. No nausea vomiting or abdominal pain. Tolerating oral diet. No headache or dizziness. No dysuria or hematuria. 09/22/2019 Patient is more confused and delirious this morning. Patient is being continued on alcohol withdrawal protocol. Patient went into atrial fibrillation with rapid regular rate and rapid response team was called. Patient was started on Cardizem drip and transferred to telemetry unit. Denied any complaints of chest pain. Patient did have shortness of breath. No nausea vomiting. Denied any abdominal pain. Patient has been afebrile. Patient does have low potassium and magnesium. Will be replaced. Liver enzymes are trending down. Cardiology will be consulted for further evaluation of it fibrillation. Patient does have history of paroxysmal atrial fibrillation on anticoagulation with Eliquis. 09/23/2019 Patient is still confused and is delirious. Continued on alcohol withdrawal protocol. Otherwise heart rate is still elevated discontinued on Cardizem drip. Eliquis is on hold due to tongue bite and bleeding. Cardiology is following. Patient has been afebrile. Hemoglobin is 8.3. Liver enzymes slightly improved. Patient denied any complaints of chest pain or worsening shortness of breath. Leg swelling improved. 09/24/2019 Patient is more awake and oriented today. Still lethargic and drowsy. Continued on alcohol withdrawal protocol. Heart rate is better controlled and Cardizem drip has been discontinued. patient is being continued on metoprolol. Patient is currently in sinus rhythm. Anticoagulation is on hold due to tongue bite and bleeding. Patient is able to tolerate oral diet today. Liver enzymes are trending down. Hemoglobin was 8.3 yesterday. Follow-up CBC and CMP tomorrow. Current medications reviewed. Active Medications Allopurinol (Zyloprim) 300 mg PO DAILY@0900 [facility] Last Admin: 09/21/19 08:28 Dose: 300 mg Documented by: Apixaban (Eliquis) 5 mg PO BID@0900,2100 [facility] Last Admin: 09/21/19 20:38 Dose: 5 mg Documented by: Cholecalciferol (Vitamin D3 (25 Mcg = 1000 Iu)) 5,000 unit PO DAILY@0900 [facility] Last Admin: 09/21/19 08:29 Dose: 5,000 unit Documented by: Cyclobenzaprine HCl (Flexeril) 10 mg PO DAILY PRN PRN Reason: MUSCLE SPASMS Last Admin: 09/21/19 20:40 Dose: 10 mg Documented by: Ferrous Sulfate (Feosol) 325 mg PO BID@0900,2100 [facility] Last Admin: 09/21/19 20:38 Dose: 325 mg Documented by: Furosemide (Lasix) 40 mg PO DAILY@0900 [facility] Last Admin: 09/21/19 08:29 Dose: 40 mg Documented by: Hydrocortisone (Cortef) 10 mg PO HS@2100 [facility] Last Admin: 09/21/19 20:38 Dose: 10 mg Documented by: Hydrocortisone (Cortef) 20 mg PO DAILY@0900 [facility] Last Admin: 09/21/19 08:29 Dose: 20 mg Documented by: Magnesium Sulfate/Dextrose 1 (gm/ IV Solution) 100 mls @ 100 mls/hr IVPB Q1H [facility] Stop: 09/22/19 01:44 Metoprolol Tartrate (Lopressor) 25 mg PO BID [facility] Last Admin: 09/21/19 20:38 Dose: 25 mg Documented by: Midodrine (Proamatine) 15 mg PO TID@0800,1200,1700 [facility] Last Admin: 09/21/19 17:34 Dose: 15 mg Documented by: Multivitamins (Theragran) 1 each PO DAILY@0900 [facility] Last Admin: 09/21/19 08:30 Dose: 1 each Documented by: Naloxone HCl (Narcan) 0.2 mg IV Q2M PRN PRN Reason: Opioid Reversal Ondansetron HCl (Zofran) 4 mg IVP Q8HR PRN PRN Reason: Nausea And Vomiting Pantoprazole Sodium (Protonix) 40 mg PO AC-BID [facility] Last Admin: 09/21/19 17:34 Dose: 40 mg Documented by: Potassium Chloride (K-Dur 20) 40 meq PO DAILY@0900 [facility] Last Admin: 09/21/19 08:29 Dose: 40 meq Documented by: Objective - Vital Signs Vital signs: Vital Signs Temp 98.7 F 09/24/19 11:24 Pulse 82 09/24/19 11:24 Resp 20 09/24/19 11:24 BP 135/65 09/24/19 11:24 Pulse Ox 97 09/24/19 11:24 Intake & Output 09/23/19 09/24/19 09/24/19 18:59 06:59 18:59 Intake Total 125 545 Balance 125 545 Weight 107 kg Intake: IV 180 0.9 180 Intake, IV Titration 125 125 Amount Diltiazem 125 mg In 125 125 Sodium Chloride 0.9% 100 ml @ 10 MG/HR 10 mls/hr IV .[id number] [facility] Rx#: [id number] Oral 0 240 Other: Voiding Method Diaper Diaper Incontinent # Voids 3 4 1 - Exam PHYSICAL EXAMINATION: Patient is lying in the bed comfortably, no acute distress, awake alert and del irious and confused.. HEENT: Normocephalic. Neck is supple. Pupils reactive. Nostrils clear. Oral c avity is moist. Ears reveal no drainage. Neck reveals no JVD, carotid bruits, or thyromegaly. CHEST EXAMINATION: Trachea is central. Symmetrical expansion. Bibasilar diminished air entry. No wheezing ,Lung valdez clear to auscultation and percussion. CARDIAC: Normal S1, S2 with no gallops. No murmurs . Irregularly irregular rhythm ABDOMEN: Soft. Bowel sounds normal. No organomegaly. No abdominal bruits. Extremities: 2+ bilateral pedal edema. No clubbing or cyanosis Neurologically awake, alert and delirious. with well-coordinated movements. No focal deficits noted Skin: No rash or skin lesions. Psychiatric: Coperative. Nonsuicidal Musculoskeletal: No joint swelling or deformity. Normal range of motion. - Labs CBC & Chem 7: 09/23/19 06:52 09/23/19 06:52 Assessment and Plan Assessment: Atrial fibrillation with rapid ventricular rate. Acute alcohol withdrawal symptoms and possible DTs Bilateral lower extremity weakness right greater than left. Ruled out acute CVA. Possible generalized weakness and deconditioning. Paroxysmal atrial fibrillation. On anticoagulant with eliquis. Rate is co ntrolled. Elevated liver enzymes likely due to alcohol Hepatitis. Recent history of GI bleed. 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 History of diverticulosis Chronic adrenal insufficiency currently on supplementation. Previous history of smoking plan: Patient was on Cardizem drip. Heart rate is controlled and currently in sinus rhythm. Continue with metoprolol. Continue with telemetry monitoring. Continue with alcohol withdrawal protocol Patient will be continued on PT OT and replace electrolyte. Continue with home medications including Lasix. Monitor blood pressure closely. Monitor H&H. Follow up liver enzymes. Encourage oral intake and protein supplements. Further recommendations based on the clinical course. Prognosis is guarded with multiple medical problems and comorbid conditions. Patient may need rehab transfer. = Time with Patient: Greater than 30
[2019-09-25 06:48] LABS: Anisocytosis Moderate; Basophils # (A) 0.1 k/uL (0-0.2); Basophils % (A) 1 %; Eosinophils # (A) 0.1 k/uL (0-0.7); Eosinophils % (A) 2 %; HCT 29.1 % (39.0-53.0); HGB 8.9 gm/dL (13.0-17.5); Hypochromasia Marked; Lymphocytes # (A) 0.9 k/uL (1.0-4.8); Lymphocytes % (A) 13 %; MCH 31.7 pg (25.0-35.0); MCHC 30.5 g/dL (31.0-37.0); MCV 103.7 fL (80.0-100.0); Macrocytosis Marked; Mean Platelet Volume 8.4; Monocytes # (A) 0.6 k/uL (0-1.0); Monocytes % (A) 8 %; Neutrophils # (A) 5.1 k/uL (1.3-7.7); Neutrophils % (A) 72 %; Platelet Count 222 k/uL (150-450); RBC 2.81 m/uL (4.30-5.90); RDW 21.9 % (11.5-15.5)
[2019-09-25] MEDS: DILTIAZEM 125 MG in SODIUM CHLORIDE 0.9% 100 ML IV SCH (06:49)
[2019-09-25] MEDS: PANTOPRAZOLE 40 MG TABLET PO SCH ×2 (06:50→18:04)
[2019-09-25 07:06] LABS: ALT 42 U/L (4-49); AST 32 U/L (17-59); African American GFR (CKD) >90 (>60 ml/min/1.73 sqM); Albumin 2.1 g/dL (3.5-5.0); Alkaline Phosphatase 264 U/L (38-126); Blood Urea Nitrogen 9 mg/dL (9-20); Calcium 8.4 mg/dL (8.4-10.2); Chloride 104 mmol/L (98-107); Glucose 88 mg/dL (74-99); Non-African American GFR(CKD) >90 (>60 ml/min/1.73 sqM); Potassium 3.4 mmol/L (3.5-5.1); Sodium 145 mmol/L (137-145); Total Bilirubin 2.5 mg/dL (0.2-1.3); Total Protein 4.7 g/dL (6.3-8.2)
[2019-09-25 07:13] LABS: Anion Gap 3 mmol/L
[2019-09-25 07:16] LABS: Carbon Dioxide 38 mmol/L (22-30)
[2019-09-25] MEDS: CHOLECALCIFEROL 1,000 UNIT TAB PO SCH (08:58)
[2019-09-25] MEDS: HYDROCORTISONE 20 MG TAB PO SCH (08:58)
[2019-09-25] MEDS: POTASSIUM CHLORIDE ER 20 MEQ TAB.ER PO SCH (08:58)
[2019-09-25] MEDS: METOPROLOL TARTRATE 25 MG TAB PO SCH (08:58)
[2019-09-25] MEDS: MIDODRINE 5 MG TAB PO SCH ×3 (08:58→18:04)
[2019-09-25] MEDS: THIAMINE 100 MG TAB PO SCH (08:58)
[2019-09-25] MEDS: FERROUS SULFATE 325 MG TAB PO SCH ×2 (08:59→21:42)
[2019-09-25] MEDS: FUROSEMIDE 40 MG TAB PO SCH (08:59)
[2019-09-25] MEDS: ALLOPURINOL 300 MG TAB PO SCH (08:59)
[2019-09-25] MEDS: MULTIVITAMINS, THERA 1 EACH TAB PO SCH (08:59)
[2019-09-25] MEDS: CYCLOBENZAPRINE 10 MG TAB PO PRN ×2 (09:01→21:49)
[2019-09-25] MEDS ORDERED: POTASSIUM CHLORIDE ER 20 MEQ TAB.ER PO STA (09:52)
--- NOTE | 2019-09-25 11:55 | P.PN ---
Subjective Progress Note Date: 09/25/19 This is a 69-year-old gentleman with past medical history significant for chronic diastolic heart failure, paroxysmal atrial fibrillation on long-term anticoagulation in the form of Eliquis, patient does have recent history of GI bleeding, chronic alcohol abuse, history of right renal cell carcinoma, he follows with Dr. Mcadams in the office. Patient apparently presented to the hospital with symptoms of progressively worsening weakness. At the time of my examination, patient is fairly unresponsive, he does awake to voice and shaking. [facility]. was admitted to the hospital on September 19, his hemoglobin this morning is 8.3 with a platelet count of 189, white blood cell count 5.8, sodium 143, potassium 3.6, BUN 14, creatinine 0.9, his magnesium on admission was 1.2, 1.9 this morning, his AST on admission was 80 ALT 119 alk phos 407, this morning 39, 58, and 285. His troponins 3 have been negative. TSH 3.9. CAT scan of the brain was performed which revealed cerebral atrophy with no acute intracranial abnormality. Chest x-ray showed pleural effusions and bibasilar atelectasis, linear infiltrate improved with prior exam. CAT scan of the abdomen was limited, it shows marked retroperitoneal lipomatosis , CT also shows marked fatty infiltration of the liver. Chest x-ray repeated this morning showed decreased lung volumes and increasing small bilateral pleural effusions. Blood pressure this morning 127/70 with a heart rate of 108, 95% on 3 L of oxygen. At the time of my examination this morning, patient arouses if you shake him a little in the bed and call out his name, he is confused he is unsure of where he is at. Not currently taking anything orally. 09/24/2019 Patient seen and examined this morning, blood pressure 135/60 with a heart rate in the 80s, 97% on 3 L of oxygen. Patient is able to swallow oral medications today crushed in applesauce. We will discontinue the IV Cardizem drip. In normal sinus rhythm today. 09/25/2019 Patient was seen and examined this morning, much more alert and oriented today, taking his oral medications today without any problem. Blood pressure 122/78 with a heart rate in the 70s, 90% on 3 L of oxygen. White blood cell count 7.0, hemoglobin 8.9, platelet count 222. Sodium 145, potassium 3.4, BUN 9, creatinine 0.7. We will discontinue the Cardizem drip today and increase the do se of beta kary. Objective - Vital Signs Vital signs: Vital Signs Temp 96.1 F L 09/25/19 11:36 Pulse 70 09/25/19 11:36 Resp 20 09/25/19 11:36 BP 123/79 09/25/19 11:36 Pulse Ox 98 09/25/19 11:36 Intake & Output 09/24/19 09/25/19 09/25/19 18:59 06:59 18:59 Intake Total 229.833 405 490 Output Total 300 Balance 229.833 405 190 Weight 104.5 kg Intake: IV 40 0.9 40 Intake, IV Titration 99.833 125 Amount Diltiazem 125 mg In 99.833 125 Sodium Chloride 0.9% 100 ml @ 10 MG/HR 10 mls/hr IV .[id number] [facility] Rx#: [id number] Oral 130 240 490 Output: Urine 300 Other: Voiding Method Incontinent Incontinent Incontinent # Voids 1 4 1 - Exam PHYSICAL EXAMINATION: GENERAL: 69-year-old gentleman in no acute distress at the time of my examination HEENT: Head is atraumatic, normocephalic. Pupils equal, round. Sclera anicteric. Conjunctiva are clear. Mucous membranes of the mouth are moist. Neck is supple. There is no elevated jugular venous pressure. No carotid bruit is heard. HEART EXAMINATION: Heart S1 and S2 normal CHEST EXAMINATION: Lungs are clear anteriorly ABDOMEN: Soft, nontender. Bowel sounds are heard. No organomegaly noted. EXTREMITIES: 2+ peripheral pulses with evidence of peripheral edema and no calf tenderness noted. NEUROLOGIC patient is awake and alert - Labs CBC & Chem 7: 09/25/19 06:08 09/25/19 06:08 Labs: Abnormal Lab Results - Last 24 Hours (Table) 09/25/19 09/25/19 Range/Units 06:08 06:08 RBC 2.81 L (4.30-5.90) m/uL Hgb 8.9 L (13.0-17.5) gm/dL Hct 29.1 L (39.0-53.0) % MCV 103.7 H (80.0-100.0) fL MCHC 30.5 L (31.0-37.0) g/dL RDW 21.9 H (11.5-15.5) % Lymphocytes # 0.9 L (1.0-4.8) k/uL Macrocytosis Marked A Potassium 3.4 L (3.5-5.1) mmol/L Carbon Dioxide 38 H (22-30) mmol/L Total Bilirubin 2.5 H (0.2-1.3) mg/dL Alkaline Phosphatase 264 H (38-126) U/L Total Protein 4.7 L (6.3-8.2) g/dL Albumin 2.1 L (3.5-5.0) g/dL Assessment and Plan Plan: Assessment and plan #1 bilateral lower extremity weakness #2 atrial fibrillation with rapid ventricular response, patient has history of paroxysmal atrial fibrillation #3 elevated liver enzymes, likely secondary to alcohol hepatitis #4 diastolic congestive heart failure, chronic #5 alcohol abuse history, currently on [employer] protocol #6 hypoalbuminemia, likely secondary to malnutrition #7 history of PE #8 history of pancreatitis #9 history of renal carcinoma #10 history of recent GI bleeds #11 prior history of smoking Plan We will discontinue the IV Cardizem drip increase the dose of oral beta kary. DNP note has been reviewed, I agree with a documented findings and plan of care. Patient was seen and examined.
[2019-09-25] MEDS: METOPROLOL TARTRATE 50 MG TAB PO SCH (21:42)
[2019-09-25] MEDS: HYDROCORTISONE 10 MG TAB PO SCH (21:42)
--- NOTE | 2019-09-26 | P.PN ---
Subjective Progress Note Date: 09/25/19 Principal diagnosis: Bilateral lower extremity weakness Acute delirium Acute alcohol withdrawal symptoms Atrial fibrillation with rapid ventricular rate Patient is a 69-year-old male with a known history of CHF with diastolic dysfunction chronic, paroxysmal atrial fibrillation on long-term anticoagulation with Eliquis, alcohol abuse and history of right renal carcinoma presents to Hospital with complaints of leg weakness. Patient has been having bilateral leg weakness which is worse on the right side. He relates that he first noticed this upon waking this morning at approximately 8 AM. He states that he almost fell getting out of bed. He was able to get around the house with his walker throughout the day but it was somewhat difficult. He states that he then later fell tonight shortly prior to arrival and was unable to get up. He rolled around on the ground for several hours. He denies obtaining any injuries. He did not hit his head. He denies any known vascular problems previously. He denies any history of CVA or TIA. He states that he has been doing overall fairly well over the past several days. He denies any recent illnesses or fevers. There's been no urinary symptoms there's been no chest pain or shortness of breath. No other complaints or modifying factors. It appears that his upper extremities are unaffected. He does complain of some numbness to his bilateral lower extremities as well as the left leg being worse in the right. There is no other paresthesias. Patient does have previous history of fall. Denied any back pain. Patient was admitted to the hospital with GI bleed/rectal bleed recently. Chest x-ray showed pleural effusions and bibasilar atelectasis and linear infiltrate improved compared to last exam. CT head showed cerebral atrophy. No acute intracranial process. Ultrasound of the abdomen shows marked retroperitoneal lipomatosis and marked fatty infiltration of liver. WBC 4.9, hemoglobin 9.2, INR 1.3, potassium 3.4 BUE and 15 and creatinine 1.1 sodium 142, magnesium 1.2 AST 80 and ALT 119, alk phos 407, albumin 2.3 and TSH 3.94 Troponin 3 negative Urinalysis is negative for infection. 09/21/2019 Patient says that his leg weakness is better. Swelling is also improving. Patient is able to ambulate with physical therapy. Medications 1.6 today which is being replaced. Liver enzymes are trending down slowly. Patient has been afebrile. No complaints of chest pain or shortness of breath. No nausea vomiting or abdominal pain. Tolerating oral diet. No headache or dizziness. No dysuria or hematuria. 09/22/2019 Patient is more confused and delirious this morning. Patient is being continued on alcohol withdrawal protocol. Patient went into atrial fibrillation with rapid regular rate and rapid response team was called. Patient was started on Cardizem drip and transferred to telemetry unit. Denied any complaints of chest pain. Patient did have shortness of breath. No nausea vomiting. Denied any abdominal pain. Patient has been afebrile. Patient does have low potassium and magnesium. Will be replaced. Liver enzymes are trending down. Cardiology will be consulted for further evaluation of it fibrillation. Patient does have history of paroxysmal atrial fibrillation on anticoagulation with Eliquis. 09/23/2019 Patient is still confused and is delirious. Continued on alcohol withdrawal protocol. Otherwise heart rate is still elevated discontinued on Cardizem drip. Eliquis is on hold due to tongue bite and bleeding. Cardiology is following. Patient has been afebrile. Hemoglobin is 8.3. Liver enzymes slightly improved. Patient denied any complaints of chest pain or worsening shortness of breath. Leg swelling improved. 09/24/2019 Patient is more awake and oriented today. Still lethargic and drowsy. Continued on alcohol withdrawal protocol. Heart rate is better controlled and Cardizem drip has been discontinued. patient is being continued on metoprolol. Patient is currently in sinus rhythm. Anticoagulation is on hold due to tongue bite and bleeding. Patient is able to tolerate oral diet today. Liver enzymes are trending down. Hemoglobin was 8.3 yesterday. Follow-up CBC and CMP tomorrow. 09/25/2019 Patient is more awake and oriented. Currently being continued on alcohol withdrawal protocol. Otherwise heart rate is better controlled. Off Cardizem drip and is on metoprolol. Saturating well on 3 L oxygen via nasal cannula. Patient is on home oxygen. Potassium 3.4, bicarb is elevated and BUN 9 and creatinine 0.7. Patient will be encouraged with PT OT and possible discharge to rehab. Current medications reviewed. Active Medications Allopurinol (Zyloprim) 300 mg PO DAILY@0900 [facility] Last Admin: 09/21/19 08:28 Dose: 300 mg Documented by: Apixaban (Eliquis) 5 mg PO BID@0900,2100 [facility] Last Admin: 09/21/19 20:38 Dose: 5 mg Documented by: Cholecalciferol (Vitamin D3 (25 Mcg = 1000 Iu)) 5,000 unit PO DAILY@09 [facility] Last Admin: 09/21/19 08:29 Dose: 5,000 unit Documented by: Cyclobenzaprine HCl (Flexeril) 10 mg PO DAILY PRN PRN Reason: MUSCLE SPASMS Last Admin: 09/21/19 20:40 Dose: 10 mg Documented by: Ferrous Sulfate (Feosol) 325 mg PO BID@0900,2099 [facility] Last Admin: 09/21/19 20:38 Dose: 325 mg Documented by: Furosemide (Lasix) 40 mg PO DAILY@899 [facility] Last Admin: 09/21/19 08:29 Dose: 40 mg Documented by: Hydrocortisone (Cortef) 10 mg PO HS@2099 [facility] Last Admin: 09/21/19 20:38 Dose: 10 mg Documented by: Hydrocortisone (Cortef) 20 mg PO DAILY@09 [facility] Last Admin: 09/21/19 08:29 Dose: 20 mg Documented by: Magnesium Sulfate/Dextrose 1 (gm/ IV Solution) 100 mls @ 100 mls/hr IVPB Q1H [facility] Stop: 09/22/19 01:44 Metoprolol Tartrate (Lopressor) 25 mg PO BID [facility] Last Admin: 09/21/19 20:38 Dose: 25 mg Documented by: Midodrine (Proamatine) 15 mg PO TID@0800,1200,1700 [facility] Last Admin: 09/21/19 17:34 Dose: 15 mg Documented by: Multivitamins (Theragran) 1 each PO DAILY@0900 [facility] Last Admin: 09/21/19 08:30 Dose: 1 each Documented by: Naloxone HCl (Narcan) 0.2 mg IV Q2M PRN PRN Reason: Opioid Reversal Ondansetron HCl (Zofran) 4 mg IVP Q8HR PRN PRN Reason: Nausea And Vomiting Pantoprazole Sodium (Protonix) 40 mg PO AC-BID [facility] Last Admin: 09/21/19 17:34 Dose: 40 mg Documented by: Potassium Chloride (K-Dur 20) 40 meq PO DAILY@0900 [facility] Last Admin: 09/21/19 08:29 Dose: 40 meq Documented by: Objective - Vital Signs Vital signs: Vital Signs Temp 98.1 F 09/25/19 15:22 Pulse 78 09/25/19 16:00 Resp 20 09/25/19 16:00 BP 118/68 09/25/19 15:22 Pulse Ox 98 09/25/19 15:22 Intake & Output 09/25/19 09/25/19 09/26/19 06:59 18:59 06:59 Intake Total 405 490 780 Output Total 300 Balance 405 190 780 Weight 104.5 kg Intake: IV 40 0.9 40 Intake, IV Titration 125 Amount Diltiazem 125 mg In 125 Sodium Chloride 0.9% 100 ml @ 10 MG/HR 10 mls/hr IV .[id number] [id number] Rx#: [id number] Oral 240 490 780 Output: Urine 300 Other: Voiding Method Incontinent Urinal Incontinent # Voids 4 1 - Exam PHYSICAL EXAMINATION: Patient is lying in the bed comfortably, no acute distress, awake alert and oriented. Drowsy otherwise.. HEENT: Normocephalic. Neck is supple. Pupils reactive. Nostrils clear. Oral cavity is moist. Ears reveal no drainage. Neck reveals no JVD, carotid bruits, or thyromegaly. CHEST EXAMINATION: Trachea is central. Symmetrical expansion. Bibasilar diminished air entry. No wheezing ,Lung valdez clear to auscultation and percussion. CARDIAC: Normal S1, S2 with no gallops. No murmurs . Irregularly irregular rhythm ABDOMEN: Soft. Bowel sounds normal. No organomegaly. No abdominal bruits. Extremities: 2+ bilateral pedal edema. No clubbing or cyanosis Neurologically awake, alert and oriented. with well-coordinated movements. No focal deficits noted Skin: No rash or skin lesions. Psychiatric: Coperative. Nonsuicidal Musculoskeletal: No joint swelling or deformity. Normal range of motion. - Labs CBC & Chem 7: 09/25/19 06:08 09/25/19 06:08 Labs: Abnormal Lab Results - Last 24 Hours (Table) 09/25/19 09/25/19 Range/Units 06:08 06:08 RBC 2.81 L (4.30-5.90) m/uL Hgb 8.9 L (13.0-17.5) gm/dL Hct 29.1 L (39.0-53.0) % MCV 103.7 H (80.0-100.0) fL MCHC 30.5 L (31.0-37.0) g/dL RDW 21.9 H (11.5-15.5) % Lymphocytes # 0.9 L (1.0-4.8) k/uL Macrocytosis Marked A Potassium 3.4 L (3.5-5.1) mmol/L Carbon Dioxide 38 H (22-30) mmol/L Total Bilirubin 2.5 H (0.2-1.3) mg/dL Alkaline Phosphatase 264 H (38-126) U/L Total Protein 4.7 L (6.3-8.2) g/dL Albumin 2.1 L (3.5-5.0) g/dL Assessment and Plan Assessment: Atrial fibrillation with rapid ventricular rate. Acute alcohol withdrawal symptoms and possible DTs Bilateral lower extremity weakness right greater than left. Ruled out acute CVA. Possible generalized weakness and deconditioning. Paroxysmal atrial fibrillation. On anticoagulant with eliquis. Rate is controlled. Elevated liver enzymes likely due to alcohol Hepatitis. Recent history of GI bleed. 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 Previous history of smoking plan: Patient was on Cardizem drip. Heart rate is controlled and currently in sinus rhythm. Continue with metoprolol. Continue with telemetry monitoring. Continue with alcohol withdrawal protocol Patient will be continued on PT OT and replace electrolyte. Continue with home medications including Lasix. Monitor blood pressure closely. Monitor H&H. Follow up liver enzymes. Encourage oral intake and protein suppl ements. Further recommendations based on the clinical course. Prognosis is guarded with multiple medical problems and comorbid conditions. Patient may need rehab transfer. = Time with Patient: Greater than 30
[2019-09-26] MEDS: PANTOPRAZOLE 40 MG TABLET PO SCH ×2 (06:18→17:25)
[2019-09-26 06:27] LABS: Anisocytosis Moderate; Basophils % (A) 0 %; Eosinophils # (A) 0.1 k/uL (0-0.7); Eosinophils % (A) 1 %; HCT 27.5 % (39.0-53.0); HGB 8.1 gm/dL (13.0-17.5); Hypochromasia Marked; Lymphocytes # (A) 0.8 k/uL (1.0-4.8); Lymphocytes % (A) 15 %; MCH 30.9 pg (25.0-35.0); MCHC 29.6 g/dL (31.0-37.0); MCV 104.5 fL (80.0-100.0); Mean Platelet Volume 8.4; Monocytes # (A) 0.4 k/uL (0-1.0); Monocytes % (A) 7 %; Neutrophils # (A) 4.1 k/uL (1.3-7.7); Neutrophils % (A) 74 %; Platelet Count 223 k/uL (150-450); RBC 2.63 m/uL (4.30-5.90); RDW 21.7 % (11.5-15.5); WBC 5.5 k/uL (3.8-10.6)
[2019-09-26 06:30] LABS: Macrocytosis Marked
[2019-09-26 06:41] LABS: African American GFR (CKD) >90 (>60 ml/min/1.73 sqM); Blood Urea Nitrogen 12 mg/dL (9-20); Calcium 8.5 mg/dL (8.4-10.2); Chloride 102 mmol/L (98-107); Glucose 99 mg/dL (74-99); Non-African American GFR(CKD) >90 (>60 ml/min/1.73 sqM); Potassium 3.4 mmol/L (3.5-5.1); Sodium 143 mmol/L (137-145)
[2019-09-26 06:47] LABS: Anion Gap 0 mmol/L
[2019-09-26 06:52] LABS: Carbon Dioxide 41 mmol/L (22-30)
[2019-09-26] MEDS: CHOLECALCIFEROL 1,000 UNIT TAB PO SCH (09:04)
[2019-09-26] MEDS: FERROUS SULFATE 325 MG TAB PO SCH (09:05)
[2019-09-26] MEDS: MULTIVITAMINS, THERA 1 EACH TAB PO SCH (09:05)
[2019-09-26] MEDS: POTASSIUM CHLORIDE ER 20 MEQ TAB.ER PO SCH (09:05)
[2019-09-26] MEDS: THIAMINE 100 MG TAB PO SCH (09:05)
[2019-09-26] MEDS: METOPROLOL TARTRATE 50 MG TAB PO SCH ×2 (09:05→17:26)
[2019-09-26] MEDS: ALLOPURINOL 300 MG TAB PO SCH (09:05)
[2019-09-26] MEDS: MIDODRINE 5 MG TAB PO SCH ×3 (09:06→17:18)
[2019-09-26] MEDS: FUROSEMIDE 40 MG TAB PO SCH (09:06)
[2019-09-26 11:09] VITALS: RESP 18
--- NOTE | 2019-09-26 11:40 | P.PN ---
Subjective Progress Note Date: 09/26/19 This is a 69-year-old gentleman with past medical history significant for chronic diastolic heart failure, paroxysmal atrial fibrillation on long-term anticoagulation in the form of Eliquis, patient does have recent history of GI bleeding, chronic alcohol abuse, history of right renal cell carcinoma, he follows with Dr. Mcadams in the office. Patient apparently presented to the hospital with symptoms of progressively worsening weakness. At the time of my examination, patient is fairly unresponsive, he does awake to voice and shaking. He is [facility]. was admitted to the hospital on September 19, his hemoglobin this morning is 8.3 with a platelet count of 189, white blood cell count 5.8, sodium 143, potassium 3.6, BUN 14, creatinine 0.9, his magnesium on admission was 1.2, 1.9 this morning, his AST on admission was 80 ALT 119 alk phos 407, this morning 39, 58, and 285. His troponins 3 have been negative. TSH 3.9. CAT scan of the brain was performed which revealed cerebral atrophy with no acute intracranial abnormality. Chest x-ray showed pleural effusions and bibasilar atelectasis, linear infiltrate improved with prior exam. CAT scan of the abdomen was limited, it shows marked retroperitoneal lipomatosis , CT also shows marked fatty infiltration of the liver. Chest x-ray repeated this morning showed decreased lung volumes and increasing small bilateral pleural effusions. Blood pressure this morning 127/70 with a heart rate of 108, 95% on 3 L of oxygen. At the time of my examination this morning, patient arouses if you shake him a little in the bed and call out his name, he is confused he is unsure of where he is at. Not currently taking anything orally. 09/24/2019 Patient seen and examined this morning, blood pressure 135/60 with a heart rate in the 80s, 97% on 3 L of oxygen. Patient is able to swallow oral medications today crushed in applesauce. We will discontinue the IV Cardizem drip. In normal sinus rhythm today. 09/25/2019 Patient was seen and examined this morning, much more alert and oriented today, taking his oral medications today without any problem. Blood pressure 122/78 with a heart rate in the 70s, 90% on 3 L of oxygen. White blood cell count 7.0, hemoglobin 8.9, platelet count 222. Sodium 145, potassium 3.4, BUN 9, creatinine 0.7. We will discontinue the Cardizem drip today and increase the do se of beta kary. 09/26/2019 Patient seen and examined today, hemodynamically stable, blood pressure 102/60 with a heart rate in the 70s.White blood cell count 5.5, hemoglobin 8.1, platelet count 223. Sodium 143, potassium 3.4, BUN 12, creatinine 0.8. Objective - Vital Signs Vital signs: Vital Signs Temp 98.0 F 09/26/19 08:00 Pulse 86 09/26/19 08:00 Resp 18 09/26/19 08:00 BP 101/60 09/26/19 08:00 Pulse Ox 99 09/26/19 08:00 Intake & Output 09/25/19 09/26/19 09/26/19 18:59 06:59 18:59 Intake Total 490 780 236 Output Total 300 475 Balance 190 305 236 Weight 105.5 kg Intake: Oral 490 780 236 Output: Urine 300 475 Other: Voiding Method Urinal Urinal Urinal Incontinent Incontinent Incontinent # Voids 1 1 - Exam PHYSICAL EXAMINATION: GENERAL: 69-year-old gentleman in no acute distress at the time of my examination HEENT: Head is atraumatic, normocephalic. Pupils equal, round. Sclera anicteric. Conjunctiva are clear. Mucous membranes of the mouth are moist. Neck is supple. There is no elevated jugular venous pressure. No carotid bruit is heard. HEART EXAMINATION: Heart S1 and S2 normal CHEST EXAMINATION: Lungs are clear anteriorly ABDOMEN: Soft, nontender. Bowel sounds are heard. No organomegaly noted. EXTREMITIES: 2+ peripheral pulses with evidence of peripheral edema and no calf tenderness noted. NEUROLOGIC patient is awake and alert - Labs CBC & Chem 7: 09/26/19 06:10 09/26/19 06:10 Labs: Abnormal Lab Results - Last 24 Hours (Table) 09/26/19 09/26/19 Range/Units 06:10 06:10 RBC 2.63 L (4.30-5.90) m/uL Hgb 8.1 L (13.0-17.5) gm/dL Hct 27.5 L (39.0-53.0) % MCV 104.5 H (80.0-100.0) fL MCHC 29.6 L (31.0-37.0) g/dL RDW 21.7 H (11.5-15.5) % Lymphocytes # 0.8 L (1.0-4.8) k/uL Macrocytosis Marked A Potassium 3.4 L (3.5-5.1) mmol/L Carbon Dioxide 41 H* (22-30) mmol/L Assessment and Plan Plan: Assessment and plan #1 bilateral lower extremity weakness #2 atrial fibrillation with rapid ventricular response, patient has history of paroxysmal atrial fibrillation #3 elevated liver enzymes, likely secondary to alcohol hepatitis #4 diastolic congestive heart failure, chronic #5 alcohol abuse history, currently on [employer] protocol #6 hypoalbuminemia, likely secondary to malnutrition #7 history of PE #8 history of pancreatitis #9 history of renal carcinoma #10 history of recent GI bleeds #11 prior history of smoking Plan from cardiology's perspective, we'll continue this patient on his current medications. He may be able to be discharged once cleared by primary. DNP note has been reviewed, I agree with a documented findings and plan of care. Patient was seen and examined.
[2019-09-26] MEDS: HYDROCORTISONE 20 MG TAB PO SCH (12:01)
--- NOTE | 2019-09-26 12:06 | P.DS ---
Providers Date of admission: 09/19/19 20:14 Attending physician: Jamal Steele Consults: 09/22/19 14:51 Consult Physician Routine Consulting Provider: Daniele Mcadams Consult Reason/Comments: tachycardia Do you want consulting provider notified?: Yes Primary care physician: Rebekah Hood [facility] Course: 69-year-old male with a known history of CHF with diastolic dysfunction chronic, paroxysmal atrial fibrillation on long-term anticoagulation with Eliquis, alcohol abuse and history of right renal carcinoma presents to Hospital with complaints of leg weakness. Patient has been having bilateral leg weakness which is worse on the right side. He relates that he first noticed this upon waking this morning at approximately 8 AM. He states that he almost fell getting out of bed. He was able to get around the house with his walker throughout the day but it was somewhat difficult. He states that he then later fell tonight shortly prior to arrival and was unable to get up. He rolled around on the ground for several hours. He denies obtaining any injuries. He did not hit his head. He denies any known vascular problems previously. He denies any history of CVA or TIA. He states that he has been doing overall fairly well over the past several days. He denies any recent illnesses or fevers. There's been no urinary symptoms there's been no chest pain or shortness of breath. No other complaints or modifying factors. It appears that his upper extremities are unaffected. He does complain of some numbness to his bilateral lower extremities as well as the left leg being worse in the right. There is no other paresthesias. Patient does have previous history of fall. Denied any back pain. Patient was admitted to the hospital with GI bleed/rectal bleed recently. Chest x-ray showed pleural effusions and bibasilar atelectasis and linear infiltrate improved compared to last exam. CT head showed cerebral atrophy. No acute intracranial process. Ultrasound of the abdomen shows marked retroperitoneal lipomatosis and marked fatty infiltration of liver. WBC 4.9, hemoglobin 9.2, INR 1.3, potassium 3.4 BUE and 15 and creatinine 1.1 sodium 142, magnesium 1.2 AST 80 and ALT 119, alk phos 407, albumin 2.3 and TSH 3.94 Troponin 3 negative Urinalysis is negative for infection. 09/21/2019 Patient says that his leg weakness is better. Swelling is also improving. Patient is able to ambulate with physical therapy. Medications 1.6 today which is being replaced. Liver enzymes are trending down slowly. Patient has been afebrile. No complaints of chest pain or shortness of breath. No nausea vomiting or abdominal pain. Tolerating oral diet. No headache or dizziness. No dysuria or hematuria. 09/22/2019 Patient is more confused and delirious this morning. Patient is being continued on alcohol withdrawal protocol. Patient went into atrial fibrillation with rapid regular rate and rapid response team was called. Patient was started on Cardizem drip and transferred to teleme try unit. Denied any complaints of chest pain. Patient did have shortness of breath. No nausea vomiting. Denied any abdominal pain. Patient has been afebrile. Patient does have low potassium and magnesium. Will be replaced. Liver enzymes are trending down. Cardiology will be consulted for further evaluation of it fibrillation. Patient does have history of paroxysmal atrial fibrillation on anticoagulation with Eliquis. 09/23/2019 Patient is still confused and is delirious. Continued on alcohol withdrawal protocol. Otherwise heart rate is still elevated discontinued on Cardizem drip. Eliquis is on hold due to tongue bite and bleeding. Cardiology is following. Patient has been afebrile. Hemoglobin is 8.3. Liver enzymes slightly improved. Patient denied any complaints of chest pain or worsening shortness of breath. Leg swelling improved. 09/24/2019 Patient is more awake and oriented today. Still lethargic and drowsy. Continued on alcohol withdrawal protocol. Heart rate is better controlled and Cardizem drip has been discontinued. patient is being continued on metoprolol. Patient is currently in sinus rhythm. Anticoagulation is on hold due to tongue bite and bleeding. Patient is able to tolerate oral diet today. Liver enzymes are trending down. Hemoglobin was 8.3 yesterday. Follow-up CBC and CMP tomorrow. 09/25/2019 Patient is more awake and oriented. Currently being continued on alcohol withdrawal protocol. Otherwise heart rate is better controlled. Off Cardizem drip and is on metoprolol. Saturating well on 3 L oxygen via nasal cannula. Patient is on home oxygen. Potassium 3.4, bicarb is elevated and BUN 9 and creatinine 0.7. Patient will be encouraged with PT OT and possible discharge to rehab. 09/26/2019 Patient is not having any withdrawals at this time patient is off Cardizem drip and is on metoprolol 50 twice a day instead of 25 twice a day. Patient will not be discharged on anticoagulation because of his recent GI bleeds and continued alcohol use. Discussed with the cardiology patient is cleared to be discharged patient will be discharged to subacute rehabilitation today. Patient still has some lightheadedness upon ambulation PHYSICAL EXAMINATION: Patient is lying in the bed comfortably, no acute distress, awake alert and oriented. Appears to be quite weak HEENT: Normocephalic. Neck is supple. Pupils reactive. Nostrils clear. Oral cavity is moist. Ears reveal no drainage. Neck reveals no JVD, carotid bruits, or thyromegaly. CHEST EXAMINATION: Trachea is central. Symmetrical expansion. Bibasilar diminished air entry. No wheezing ,Lung valdez clear to auscultation and percussion. CARDIAC: Normal S1, S2 with no gallops. No murmurs . Irregularly irregular rhythm ABDOMEN: Soft. Bowel sounds normal. No organomegaly. No abdominal bruits. Extremities: 2+ bilateral pedal edema. No clubbing or cyanosis Neurologically awake, alert and oriented. with well-coordinated movements. No focal deficits noted Skin: No rash or skin lesions. Psychiatric: Coperative. Nonsuicidal Musculoskeletal: No joint swelling or deformity. Normal range of motion. Assessment and Plan Assessment: Atrial fibrillation with rapid ventricular rate. Presently rate controlled increase the dose of beta kary Acute alcohol withdrawal symptoms, patient is presently not having any withdraw al symptoms Bilateral lower extremity weakness right greater than left. Ruled out acute CVA. Possible generalized weakness and deconditioning. Paroxysmal atrial fibrillation. Not be discharged on Eliquis because of his recent GI bleed Elevated liver enzymes likely due to alcohol Hepatitis. Recent history of GI bleed. Hemoglobin currently at 9.2 and 8.5--8.8 osteoarthritis Chronic CHF with diastolic dysfunction Chronic alcohol abuse history Hypomagnesemia, hypokalemia Hypoalbuminemia/mild protein calorie malnutrition History of pulmonary embolism History of pancreatitis with multiple admissions BPH Right renal carcinoma with cryoablation at [facility] History of diverticulosis Chronic adrenal insufficiency currently on supplementation. Previous history of smoking Patient Condition at Discharge: Fair Plan - Discharge Summary Discharge Rx Participant: No New Discharge Prescriptions: New Metoprolol Tartrate [Lopressor] 50 mg PO BID tab Thiamine [Vitamin B-1] 100 mg PO DAILY tab Continue Multivitamins, Thera [Multivitamin (formulary)] 1 each PO DAILY@0900 #30 tab Ferrous Gluconate 324 mg PO BID@0900,2100 #30 tab Furosemide [Lasix] 40 mg PO DAILY@0900 #30 tab Midodrine [ProAmatine] 15 mg PO TID@0800,1200,1700 #60 tab Cholecalciferol [Vitamin D3 (25 Mcg = 1000 Iu)] 5,000 unit PO DAILY@0900 #30 tab Allopurinol [Zyloprim] 300 mg PO DAILY@0900 #30 tab Cyclobenzaprine [Flexeril] 10 mg PO DAILY PRN PRN Reason: MUSCLE SPASMS Pantoprazole Sodium [Protonix] 40 mg PO BID Potassium Chloride ER [K-Dur 20] 20 meq PO DAILY Hydrocortisone [Cortef] 10 mg PO DAILY Hydrocortisone [Cortef] 5 mg PO HS Discontinued Apixaban [Eliquis] 5 mg PO BID@0900,2100 #30 tab Metoprolol Tartrate 25 mg PO BID Discharge Medication List Allopurinol [Zyloprim] 300 mg PO DAILY@0900 #30 tab 08/12/19 [Rx] Cholecalciferol [Vitamin D3 (25 Mcg = 1000 Iu)] 5,000 unit PO DAILY@0900 #30 tab 08/12/19 [Rx] Ferrous Gluconate 324 mg PO BID@0900,2100 #30 tab 08/12/19 [Rx] Furosemide [Lasix] 40 mg PO DAILY@0900 #30 tab 08/12/19 [Rx] Midodrine [ProAmatine] 15 mg PO TID@0800,1200,1700 #60 tab 08/12/19 [Rx] Multivitamins, Thera [Multivitamin (formulary)] 1 each PO DAILY@0900 #30 tab 08/12/19 [Rx] Cyclobenzaprine [Flexeril] 10 mg PO DAILY PRN 09/19/19 [History] Pantoprazole Sodium [Protonix] 40 mg PO BID 09/19/19 [History] Hydrocortisone [Cortef] 5 mg PO HS 09/20/19 [History] Hydrocortisone [Cortef] 10 mg PO DAILY 09/20/19 [History] Potassium Chloride ER [K-Dur 20] 20 meq PO DAILY 09/20/19 [History] Metoprolol Tartrate [Lopressor] 50 mg PO BID tab 09/26/19 [Rx] Thiamine [Vitamin B-1] 100 mg PO DAILY tab 09/26/19 [Rx]
[2019-09-26 13:01] VITALS: PULSE 70
[2019-09-26 13:13] VITALS: BMI 32.4
[2019-09-26 17:47] VITALS: BP 107/63; TEMP 98.3
== END 2019-09-26 17:18 | DRG 309 ==
LOC: EC 17:43 → 5NMEDONC 20:14 → 3SCARD 09-22 16:08
PROVIDERS: ADMIT Hospitalist; ATTEND Hospitalist
DX: I48.0 Paroxysmal atrial fibrillation (principal); E44.1 Mild protein-calorie malnutrition; E27.40 Unspecified adrenocortical insufficiency; F10.231 Alcohol dependence with withdrawal delirium; I50.32 Chronic diastolic (congestive) heart failure; J98.11 Atelectasis; Z85.528 Personal history of other malignant neoplasm of kidney; D64.9 Anemia, unspecified; E83.42 Hypomagnesemia; E87.6 Hypokalemia; E88.2 Lipomatosis, not elsewhere classified; K70.0 Alcoholic fatty liver; I49.3 Ventricular premature depolarization; K70.10 Alcoholic hepatitis without ascites; M15.9 Polyosteoarthritis, unspecified; N40.0 Benign prostatic hyperplasia without lower urinary tract symptoms; Z79.01 Long term (current) use of anticoagulants; Z79.899 Other long term (current) drug therapy; Z80.3 Family history of malignant neoplasm of breast; Z80.41 Family history of malignant neoplasm of ovary; Z82.49 Family history of ischemic heart disease and other diseases of the circulatory system; Z82.5 Family history of asthma and other chronic lower respiratory diseases; Z86.711 Personal history of pulmonary embolism; Z86.010 Personal history of colon polyps; Z87.19 Personal history of other diseases of the digestive system; Z87.891 Personal history of nicotine dependence; Z96.652 Presence of left artificial knee joint; Z99.81 Dependence on supplemental oxygen; Z91.81 History of falling; S01.552A Open bite of oral cavity, initial encounter; K57.30 Diverticulosis of large intestine without perforation or abscess without bleeding; Z90.49 Acquired absence of other specified parts of digestive tract
CPT/HCPCS: 36415; 70450; 71045; 71046; 76705; 80048; 80053; 80076; 81003; 83605; 83735; 84100; 84132; 84443; 84484; 85025; 85610; 85730; 93005; 94760; 96365; 96366; 96368; 99285

== ENCOUNTER 2019-10-12 14:44 | Inpatient (IN) | payer MEDICARE, OTHER ==
--- NOTE | 2019-10-12 15:22 | ED ---
General Adult HPI - General Source: patient, RN notes reviewed, old records reviewed Mode of arrival: EMS Limitations: no limitations <Yovani Lopez - Last Filed: 10/12/19 15:20> <Mickey Ziegler - Last Filed: 10/12/19 17:31> - General Chief complaint: Weakness Stated complaint: weakness Time Seen by Provider: 10/12/19 14:46 - History of Present Illness Initial comments: 69-year-old male patient presents to ED for chief complaint of chest pain, exertional dyspnea, some dizziness when standing up abruptly. Patient reports symptoms have been ongoing for the last 2 days. Patient reports that the chest pain is transient in nature, sharp, substernal. Reports that he is having some shortness of breath while ambulatory. Also reports that he stands up abruptly gets dizzy. Denies any recent falls or trauma. Denies any other complaints. Pt is anticoagulated on eliquis. Denies any active chest pain at this time, denies active shortness of breath this time. Patient was initially evaluated at [facility] for Dr. Ziegler. (Yovani Lopez) - Related Data Home Medications Medication Instructions Recorded Confirmed Cyclobenzaprine [Flexeril] 10 mg PO DAILY PRN 09/19/19 09/19/19 Pantoprazole Sodium [Protonix] 40 mg PO BID 09/19/19 09/19/19 Hydrocortisone [Cortef] 5 mg PO HS 09/20/19 09/20/19 Hydrocortisone [Cortef] 10 mg PO DAILY 09/20/19 09/20/19 Potassium Chloride ER [K-Dur 20] 20 meq PO DAILY 09/20/19 09/20/19 Previous Rx's Medication Instructions Recorded Allopurinol [Zyloprim] 300 mg PO DAILY@0900 #30 tab 08/12/19 Cholecalciferol [Vitamin D3 (25 5,000 unit PO DAILY@0900 #30 tab 08/12/19 Mcg = 1000 Iu)] Ferrous Gluconate 324 mg PO BID@0900,2100 #30 tab 08/12/19 Furosemide [Lasix] 40 mg PO DAILY@0900 #30 tab 08/12/19 Midodrine [ProAmatine] 15 mg PO TID@0800,1200,1700 #60 tab 08/12/19 Multivitamins, Thera [Multivitamin 1 each PO DAILY@0900 #30 tab 08/12/19 (formulary)] Metoprolol Tartrate [Lopressor] 50 mg PO BID tab 09/26/19 Thiamine [Vitamin B-1] 100 mg PO DAILY tab 09/26/19 Allergies Allergy/AdvReac Type Severity Reaction Status Date / Time No Known Allergies Allergy Verified 09/19/19 18:30 Review of Systems ROS Other: All systems not noted in ROS Statement are negative. <Yovani Lopez - Last Filed: 10/12/19 15:20> ROS Other: All systems not noted in ROS Statement are negative. <Mickey Ziegler - Last Filed: 10/12/19 17:31> ROS Statement: Those systems with pertinent positive or pertinent negative responses have been documented in the HPI. Past Medical History Past Medical History: Atrial Fibrillation, Blood Disorder, Cancer, Osteo arthritis (OA), Pulmonary Embolus (PE) Additional Past Medical History / Comment(s): Afib/RVR, pulmonary embolism L lung, pancreatitis multiple times, ETOH abuse, was diagnosed with R renal carcinoma with cryoablation at [place], [facility], past R lung pneumo with chest tube, diverticulitis, benign colon polyps, arthritis multiple joints, abdominal hernias. Dizziness fall and right rib fractures 09/15/18,. Adrenal insufficiently History of Any Multi-Drug Resistant Organisms: None Reported Past Surgical History: Bariatric Surgery, Bowel Resection, Cholecystectomy, Hernia Repair, Joint Replacement Additional Past Surgical History / Comment(s): Recent (2017) r kidney lesion cryoablation at [facility], 2013 bowel resection d/t viscus perf with colostomy later reversed , gastric sleeve converted to darrell-en-Y 08/2014-post op wound infection, paraesphogeal hiat hernia repair, R inguinal and umbilical hernia repairs, colonoscopies, L total knee arthroplasty., Past Anesthesia/Blood Transfusion Reactions: No Reported Reaction Past Psychological History: No Psychological Hx Reported Smoking Status: Former smoker Past Alcohol Use History: None Reported Past Drug Use History: None Reported - Past Family History Father Family Medical History: COPD, Myocardial Infarction (AK) Additional Family Medical History / Comment(s): Father from a AK at the age of 69yrs. Mother Family Medical History: Cancer Additional Family Medical History / Comment(s): Mother from ovarian cancer at the age of 69yrs. Sister(s) Family Medical History: Cancer Additional Family Medical History / Comment(s): at age 74yrs. Had breast cancer and a defibrillator <Yovani Lopez - Last Filed: 10/12/19 15:20> General Exam Limitations: no limitations <Yovani Lopez - Last Filed: 10/12/19 15:20> Course Vital Signs 10/12/19 14:48 Temperature 98.3 F Pulse Rate 75 Respiratory 18 Rate Blood Pressure 118/75 O2 Sat by Pulse 98 Oximetry EKG Findings - EKG Comments: EKG Findings:: EKG: Normal sinus rhythm, PAC, no ST segment elevation, rate of 74, QRS duration 78, QTC 432 <Mickey Ziegler - Last Filed: 10/12/19 17:31> Medical Decision Making - Lab Data Result diagrams: 10/12/19 15:27 10/12/19 15:27 <Mickey Ziegler - Last Filed: 10/12/19 17:31> - Medical Decision Making 61-year-old male presenting for evaluation of cough, dyspnea and intermittent chest pain. Patient has history of PE and is anticoagulated. He reports increased generalized weakness. He is denying fever. Chest x-ray was obtained which shows concern for pneumonia. He has no leukocytosis, hemoglobin 10.1 which is stable and increased for this patient. He has normal electrolytes. Urinalysis is pending. He is initiated on IV antibiotics and will be admitted for treatment of pneumonia. (Mickey Ziegler) - Lab Data Lab Results 10/12/19 10/12/19 10/12/19 Range/Units 15:27 15:27 15:27 WBC 5.1 (3.8-10.6) k/uL RBC 3.10 L (4.30-5.90) m/uL Hgb 10.1 L (13.0-17.5) gm/dL Hct 31.7 L (39.0-53.0) % MCV 102.2 H (80.0-100.0) fL MCH 32.7 (25.0-35.0) pg MCHC 32.0 (31.0-37.0) g/dL RDW 19.9 H (11.5-15.5) % Plt Count 304 (150-450) k/uL Neutrophils % 73 % Lymphocytes % 16 % Monocytes % 6 % Eosinophils % 2 % Basophils % 1 % Neutrophils # 3.7 (1.3-7.7) k/uL Lymphocytes # 0.8 L (1.0-4.8) k/uL Monocytes # 0.3 (0-1.0) k/uL Eosinophils # 0.1 (0-0.7) k/uL Basophils # 0.0 (0-0.2) k/uL Hypochromasia Moderate Anisocytosis Slight Macrocytosis Moderate PT (9.0-12.0) sec INR (<1.2) APTT (22.0-30.0) sec Sodium 143 (137-145) mmol/L Potassium 3.6 (3.5-5.1) mmol/L Chloride 108 H (98-107) mmol/L Carbon Dioxide 28 (22-30) mmol/L Anion Gap 7 mmol/L BUN 14 (9-20) mg/dL Creatinine 0.94 (0.66-1.25) mg/dL Est GFR (CKD-EPI)AfAm >90 (>60 ml/min/1.73 sqM) Est GFR (CKD-EPI)NonAf 83 (>60 ml/min/1.73 sqM) Glucose 74 (74-99) mg/dL Calcium 8.2 L (8.4-10.2) mg/dL Magnesium 1.6 (1.6-2.3) mg/dL Total Bilirubin 1.6 H (0.2-1.3) mg/dL AST 29 (17-59) U/L ALT 16 (4-49) U/L Alkaline Phosphatase 245 H (38-126) U/L Troponin I (0.000-0.034) ng/mL NT-Pro-B Natriuret Pep 1680 pg/mL Total Protein 5.5 L (6.3-8.2) g/dL Albumin 2.2 L (3.5-5.0) g/dL 10/12/19 10/12/19 Range/Units 15:27 15:27 WBC (3.8-10.6) k/uL RBC (4.30-5.90) m/uL Hgb (13.0-17.5) gm/dL Hct (39.0-53.0) % MCV (80.0-100.0) fL MCH (25.0-35.0) pg MCHC (31.0-37.0) g/dL RDW (11.5-15.5) % Plt Count (150-450) k/uL Neutrophils % % Lymphocytes % % Monocytes % % Eosinophils % % Basophils % % Neutrophils # (1.3-7.7) k/uL Lymphocytes # (1.0-4.8) k/uL Monocytes # (0-1.0) k/uL Eosinophils # (0-0.7) k/uL Basophils # (0-0.2) k/uL Hypochromasia Anisocytosis Macrocytosis PT 11.7 (9.0-12.0) sec INR 1.1 (<1.2) APTT 24.3 (22.0-30.0) sec Sodium (137-145) mmol/L Potassium (3.5-5.1) mmol/L Chloride (98-107) mmol/L Carbon Dioxide (22-30) mmol/L Anion Gap mmol/L BUN (9-20) mg/dL Creatinine (0.66-1.25) mg/dL Est GFR (CKD-EPI)AfAm (>60 ml/min/1.73 sqM) Est GFR (CKD-EPI)NonAf (>60 ml/min/1.73 sqM) Glucose (74-99) mg/dL Calcium (8.4-10.2) mg/dL Magnesium (1.6-2.3) mg/dL Total Bilirubin (0.2-1.3) mg/dL AST (17-59) U/L ALT (4-49) U/L Alkaline Phosphatase (38-126) U/L Troponin I <0.012 (0.000-0.034) ng/mL NT-Pro-B Natriuret Pep pg/mL Total Protein (6.3-8.2) g/dL Albumin (3.5-5.0) g/dL Disposition <Yovani Lopez - Last Filed: 10/12/19 15:20> Is patient prescribed a controlled substance at d/c from ED?: No Decision to Admit Reason: Admit from EC Decision Date: 10/12/19 Decision Time: 17:31 <Mickey Ziegler - Last Filed: 10/12/19 17:31> Clinical Impression: Weakness, Pneumonia Disposition: ADMITTED IP TO THIS [facility] Condition: Stable Referrals: Rebekah Hood DO [Primary Care Provider] - 1-2 days
[2019-10-12 15:51] LABS: Anisocytosis Slight; Basophils % (A) 1 %; Eosinophils # (A) 0.1 k/uL (0-0.7); Eosinophils % (A) 2 %; HCT 31.7 % (39.0-53.0); HGB 10.1 gm/dL (13.0-17.5); Hypochromasia Moderate; Lymphocytes # (A) 0.8 k/uL (1.0-4.8); Lymphocytes % (A) 16 %; MCH 32.7 pg (25.0-35.0); MCV 102.2 fL (80.0-100.0); Macrocytosis Moderate; Mean Platelet Volume 8.3; Monocytes # (A) 0.3 k/uL (0-1.0); Monocytes % (A) 6 %; Neutrophils # (A) 3.7 k/uL (1.3-7.7); Neutrophils % (A) 73 %; Platelet Count 304 k/uL (150-450); RDW 19.9 % (11.5-15.5); WBC 5.1 k/uL (3.8-10.6)
[2019-10-12 15:56] LABS: INR 1.1 (<1.2); Partial Thromboplastin Time 24.3 sec (22.0-30.0); Prothrombin Time 11.7 sec (9.0-12.0)
[2019-10-12 15:57] LABS: ALT 16 U/L (4-49); AST 29 U/L (17-59); African American GFR (CKD) >90 (>60 ml/min/1.73 sqM); Albumin 2.2 g/dL (3.5-5.0); Alkaline Phosphatase 245 U/L (38-126); Anion Gap 7 mmol/L; Blood Urea Nitrogen 14 mg/dL (9-20); Calcium 8.2 mg/dL (8.4-10.2); Carbon Dioxide 28 mmol/L (22-30); Chloride 108 mmol/L (98-107); Glucose 74 mg/dL (74-99); Magnesium 1.6 mg/dL (1.6-2.3); Non-African American GFR(CKD) 83 (>60 ml/min/1.73 sqM); Potassium 3.6 mmol/L (3.5-5.1); Sodium 143 mmol/L (137-145); Total Bilirubin 1.6 mg/dL (0.2-1.3); Total Protein 5.5 g/dL (6.3-8.2)
--- NOTE | 2019-10-12 16:05 | XR ---
EXAMINATION TYPE: XR chest 2V DATE OF EXAM: 10/12/2019 COMPARISON: 09/22/2019 TECHNIQUE: PA and lateral views submitted. HISTORY: Chest pain FINDINGS: Heart is enlarged there is bilateral consolidation small effusion. No pneumothorax. Arthropathy of th e shoulders. No overt failure. Degenerative change of the spine. Left lateral rib cage deformities ar e noted correlate for previous trauma. IMPRESSION: 1. Bilateral infiltrate and pleural effusion correlate for pneumonia. No overt failure. 2. Lower left lateral rib cage deformities correlate for previous trauma.
[2019-10-12] MEDS ORDERED: cefTRIAXone IN SWFI 1,000 MG/10 ML SYRINGE IVP STA (17:27)
[2019-10-12] MEDS ORDERED: AZITHROMYCIN 500 MG in SODIUM CHLORIDE 0.9% 250 ML IVPB STA (17:27)
[2019-10-12] MEDS ORDERED: PNEUMONIA PROTOCOL UTILIZED 1 EACH MISC PO PRN (17:28)
[2019-10-12] MEDS ORDERED: HYDROcodone/APAP 5-325MG 1 EACH TAB PO ONE (20:15)
[2019-10-12] MEDS: ALBUTEROL NEBULIZED 2.5 MG/3 ML INHALATION SCH (20:41)
[2019-10-12] MEDS: PANTOPRAZOLE 40 MG TABLET PO SCH (21:35)
[2019-10-12] MEDS: METOPROLOL TARTRATE 50 MG TAB PO SCH (21:35)
[2019-10-12] MEDS: HYDROCORTISONE 10 MG TAB PO SCH (21:35)
[2019-10-12] MEDS: CYCLOBENZAPRINE 10 MG TAB PO PRN (23:47)
[2019-10-12] MEDS: HEPARIN SODIUM,PORCINE 5,000 UNIT/ML 1 ML VIAL SQ SCH (23:47)
[2019-10-13 03:33] LABS: Amorphous Sediment,Urine Rare /hpf; Appearance,Urine Cloudy (Clear); Bilirubin,Urine Negative (Negative); Blood,Urine Negative (Negative); Color,Urine Yellow; Glucose,Urine (UA) Negative (Negative); Hyaline Casts,Urine 13 /lpf (0-2); Ketones,Urine 1+ (Negative); Leukocyte Esterase,Urine Negative (Negative); Mucus,Urine Rare /hpf; Nitrite,Urine Negative (Negative); PH, Urine 5.5 (5.0-8.0); Protein,Urine Negative (Negative); RBC,Urine 19 /hpf (0-5); Specific Gravity,Urine 1.021 (1.001-1.035); Squamous Epithelial Cell,Urine <1 /hpf (0-4)
[2019-10-13] MEDS: MIDODRINE 5 MG TAB PO SCH ×3 (08:16→15:17)
[2019-10-13] MEDS: ALBUTEROL NEBULIZED 2.5 MG/3 ML INHALATION SCH ×2 (08:16→12:39)
[2019-10-13] MEDS: PANTOPRAZOLE 40 MG TABLET PO SCH ×2 (08:31→17:14)
[2019-10-13] MEDS: HEPARIN SODIUM,PORCINE 5,000 UNIT/ML 1 ML VIAL SQ SCH (08:31)
[2019-10-13] MEDS: CYCLOBENZAPRINE 10 MG TAB PO PRN (08:32)
[2019-10-13] MEDS: METOPROLOL TARTRATE 50 MG TAB PO SCH ×2 (08:32→21:42)
[2019-10-13] MEDS ORDERED: AZITHROMYCIN 500 MG TAB PO SCH (09:00)
--- NOTE | 2019-10-13 09:52 | P.HPIM ---
History of Present Illness This is a pleasant 69 years old with past medical history of pulmonary embolism, atrial fibrillation, diastolic congestive heart failure with ejection fraction of 60-65%, alcohol abuse, right renal carcinoma and follow-up at [facility], benign prostatic hypertrophy, diverticulitis abdominal hernia, dizziness and fall with right rib fracture on 2018. He follows with Dr. Mcadams and Dr. Hood in the outpatient setting. Patient presents because of 2 days of dyspnea with a dry cough associated with headache and dizziness, dizzy spells especially postural dizziness whenever he gets up. He denies chest pain, however he has chronic back pain and he sees an orthopedic as an outpatient. No nausea vomiting or swallowing a problem, no problem with his bowel movements. Abdominal pain. At baseline and he uses a walker but still he needs help with ambulation Follow last 2 days he starts seeing sneaks Patient confirmed to me he is still on Eliquis 5 mg Vitals stable and patient is afebrile. No leukocytosis. INR is 1.1, BMP and liver enzymes are unremarkable. EKG showing normal sinus rhythm at [address]-T abnormality. QTC is 432. Chest x-ray: Bilateral infiltrates and pleural effusion suspicious for pneumonia. ProBNP his 1618 On admission patient was started on Zithromax and Rocephin. Review of Systems CONSTITUTIONAL: No fever, no malaise, no fatigue. HEENT: No recent visual problems or hearing problems. Denied any sore throat. CARDIOVASCULAR: No orthopnea, PND, no palpitations, no syncope. PULMONARY: no hemoptysis. GASTROINTESTINAL: No diarrhea, no nausea, no vomiting, no abdominal pain. Normoactive bowel sounds. NEUROLOGICAL: no weakness, no numbness. HEMATOLOGICAL: Denies any bleeding or petechiae. GENITOURINARY: Denies any burning micturition, frequency, or urgency. MUSCULOSKELETAL/RHEUMATOLOGICAL: Denies any joint pain, swelling, or any muscle pain. ENDOCRINE: Denies any polyuria or polydipsia. Past Medical History Past Medical History: Atrial Fibrillation, Blood Disorder, Cancer, Osteo arthritis (OA), Pulmonary Embolus (PE) Additional Past Medical History / Comment(s): Afib/RVR, pulmonary embolism L lung, pancreatitis multiple times, ETOH abuse, was diagnosed with R renal carcinoma with cryoablation at [place], BPH, past R lung pneumo with chest tube, diverticulitis, benign colon polyps, arthritis multiple joints, abdominal hernias. Dizziness fall and right rib fractures 09/15/18,. Adrenal insufficiently History of Any Multi-Drug Resistant Organisms: None Reported Past Surgical History: Bariatric Surgery, Bowel Resection, Cholecystectomy, Hernia Repair, Joint Replacement Additional Past Surgical History / Comment(s): Recent (2017) r kidney lesion cryoablation at [facility], 2012 bowel resection d/t viscus perf with colostomy later reversed , gastric sleeve converted to darrell-en-Y 08/2014-post op wound infection, paraesphogeal hiat hernia repair, R inguinal and umbilical hernia repairs, colonoscopies, L total knee arthroplasty., Past Anesthesia/Blood Transfusion Reactions: No Reported Reaction Past Psychological History: No Psychological Hx Reported Additional Psychological History / Comment(s): Pt resides alone. He is independent. He is retired from [employer]. No experience. No travel history. Reformed smoker. History of alcoholism. Denies injection drug use or other recreational drug use. No animals in the home Smoking Status: Former smoker Past Alcohol Use History: None Reported Additional Past Alcohol Use History / Comment(s): SMOKING: FOR 15 YRS, STOPPED, 1987. ETOH: HISTORY OF ABUSE, 6 to 8 mixed drinks per week ; 10/12/19 Patient reports only occasional ETOH use Past Drug Use History: None Reported - Past Family History Father Family Medical History: COPD, Myocardial Infarction (ME) Additional Family Medical History / Comment(s): Father from a ME at the age of 69yrs. Mother Family Medical History: Cancer Additional Family Medical History / Comment(s): Mother from ovarian cancer at the age of 69yrs. Sister(s) Family Medical History: Cancer Additional Family Medical History / Comment(s): at age 74yrs. Had breas t cancer and a defibrillator Medications and Allergies Home Medications Medication Instructions Recorded Confirmed Type Allopurinol [Zyloprim] 300 mg PO DAILY@0900 #30 tab 08/12/19 10/12/19 Rx Cholecalciferol [Vitamin D3 (25 5,000 unit PO DAILY@0900 #30 tab 08/12/19 10/12/19 Rx Mcg = 1000 Iu)] Ferrous Gluconate 324 mg PO BID@0900,2100 #30 tab 08/12/19 10/12/19 Rx Furosemide [Lasix] 40 mg PO DAILY@0900 #30 tab 08/12/19 10/12/19 Rx Midodrine [ProAmatine] 15 mg PO TID@0800,1200,1700 #60 tab 08/12/19 10/12/19 Rx Cyclobenzaprine [Flexeril] 10 mg PO DAILY PRN 09/19/19 10/12/19 History Pantoprazole Sodium [Protonix] 40 mg PO BID 09/19/19 10/12/19 History Hydrocortisone [Cortef] 5 mg PO HS 09/20/19 10/12/19 History Hydrocortisone [Cortef] 10 mg PO DAILY 09/20/19 10/12/19 History Potassium Chloride ER [K-Dur 20] 20 meq PO DAILY 09/20/19 10/12/19 History Metoprolol Tartrate [Lopressor] 50 mg PO BID tab 09/26/19 10/12/19 Rx Multivitamins, Thera [Multivitamin 1 tab PO DAILY@0900 10/12/19 10/12/19 History (formulary)] Allergies Allergy/AdvReac Type Severity Reaction Status Date / Time No Known Allergies Allergy Verified 10/12/19 17:52 Physical Exam Vitals: Vital Signs Temp Pulse Pulse Resp BP BP Pulse Ox 10/13/19 08:30 98 10/13/19 08:17 88 10/13/19 07:00 97.8 F 74 16 129/88 98 10/13/19 02:12 98.2 F 68 17 139/79 97 10/12/19 21:34 109 H 126/75 10/12/19 20:51 96 10/12/19 20:44 96 10/12/19 18:30 97.6 F 77 16 136/72 95 10/12/19 18:02 98.2 F 92 18 143/84 97 10/12/19 14:48 98.3 F 75 18 118/75 98 Intake and Output 10/12/19 10/13/19 10/13/19 22:59 06:59 14:59 Intake Total 780 325 Output Total 300 Balance 780 -300 325 Intake: Intake, IV Titration 300 Amount Azithromycin 500 mg In 250 Sodium Chloride 0.9% 250 ml @ 250 mls/hr IVPB ONCE STA Rx#:[id number] cefTRIAXone 1 gm In 50 Sodium Chloride 0.9% 50 ml @ 100 mls/hr IVPB Q24HR [facility] Rx#:[id number] Oral 480 325 Output: Urine 300 Other: Voiding Method Urinal # Voids 1 Weight 96.5 kg GENERAL: The patient is alert and oriented x3, not in any acute distress. Well developed, well nourished. HEENT: Pupils are round and equally reacting to light. EOMI. No scleral icterus. No conjunctival pallor. Normocephalic, atraumatic. No pharyngeal erythema. No thyromegaly. CARDIOVASCULAR: S1 and S2 present. No murmurs, rubs, or gallops. PULMONARY: Chest is clear to auscultation, no wheezing. Bilateral basal crepitation ABDOMEN: Soft, nontender, nondistended, normoactive bowel sounds. No palpable organomegaly. MUSCULOSKELETAL: No joint swelling or deformity. -EXTREMITIES: No cyanosis, clubbing. Bilateral leg redness and warmth and tenderness, bilateral leg pitting edema NEUROLOGICAL: Gross neurological examination did not reveal any focal deficits. SKIN: No rashes. No petechiae Results CBC & Chem 7: 10/12/19 15:27 10/12/19 15:27 Labs: Abnormal Lab Results - Last 24 Hours (Table) 10/12/19 10/12/19 10/13/19 Range/Units 15:27 15:27 02:55 RBC 3.10 L (4.30-5.90) m/uL Hgb 10.1 L (13.0-17.5) gm/dL Hct 31.7 L (39.0-53.0) % MCV 102.2 H (80.0-100.0) fL RDW 19.9 H (11.5-15.5) % Lymphocytes # 0.8 L (1.0-4.8) k/uL Chloride 108 H (98-107) mmol/L Calcium 8.2 L (8.4-10.2) mg/dL Total Bilirubin 1.6 H (0.2-1.3) mg/dL Alkaline Phosphatase 245 H (38-126) U/L Total Protein 5.5 L (6.3-8.2) g/dL Albumin 2.2 L (3.5-5.0) g/dL Urine Ketones 1+ H (Negative) Urine RBC 19 H (0-5) /hpf Amorphous Sediment Rare H (None) /hpf Hyaline Casts 13 H (0-2) /lpf Urine Mucus Rare H (None) /hpf Thrombosis Risk Factor Assmnt - Choose All That Apply Any of the Below Risk Factors Present?: Yes Each Factor Represents 1 point: Obesity (BMI >25) Other Risk Factors: Yes Each Risk Factor Represents 2 Points: Age 61-74 years Thrombosis Risk Factor Assessment Total Risk Factor Score: 3 Thrombosis Risk Factor Assessment Level: Moderate Risk Assessment and Plan Assessment: Bilateral basal infiltrates and consolidation with pleural effusion, suspicious for pneumonia versus CHF. Possible acute on chronic diastolic heart failure Bilateral lower extremity cellulitis hallucinations Atrial fibrillation Alcohol abuse Benign prostatic hypertrophy History of pulmonary embolism History of diverticulitis Abdominal hernia History of fall and rib fracture Plan: This is a pleasant 69 years old male who presents with respiratory system, suspicious for pneumonia versus CHF, leg cellulitis and hallucinations. Continue with antibiotics, follow-up culture results. Continue bronchodilators and oxygen as needed. Continue with IV Lasix. Consult pulmonary and psychiat didier services Labs and medication were reviewed.. Continue same treatment. Continue with symptomatic treatment. Resume home medication. Monitor lytes and vitals. DVT and GI prophylaxis. Further recommendations of the clinical course of the patient DVT prophylaxis: eliquis GI ProphylaxiProtonix PT/OT: Pending Prognosis is guarded
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
[2019-10-13] MEDS: HYDROcodone/APAP 5-325MG 1 EACH TAB PO PRN ×2 (13:53→22:34)
[2019-10-13] MEDS: APIXABAN 5 MG TAB PO SCH ×2 (13:53→21:42)
[2019-10-13 15:26] VITALS: BMI 30.5
[2019-10-13] MEDS: IPRATROPIUM-ALBUTEROL 3 ML NEB INHALATION PRN (21:18)
[2019-10-13] MEDS: FUROSEMIDE 10 MG/ML 4 ML VIAL IV SCH (21:42)
[2019-10-13] MEDS: FERROUS GLUCONATE 324 MG PO SCH (21:42)
[2019-10-13] MEDS: HYDROCORTISONE 10 MG TAB PO SCH (21:42)
[2019-10-14] MEDS: METOPROLOL TARTRATE 50 MG TAB PO SCH ×2 (07:35→21:20)
[2019-10-14] MEDS: ALLOPURINOL 300 MG TAB PO SCH (07:35)
[2019-10-14] MEDS: POTASSIUM CHLORIDE ER 20 MEQ TAB.ER PO SCH (07:35)
[2019-10-14] MEDS: APIXABAN 5 MG TAB PO SCH ×2 (07:36→21:20)
[2019-10-14] MEDS: FUROSEMIDE 10 MG/ML 4 ML VIAL IV SCH ×2 (07:36→21:20)
[2019-10-14] MEDS: MIDODRINE 5 MG TAB PO SCH ×3 (07:36→12:21)
[2019-10-14] MEDS: PANTOPRAZOLE 40 MG TABLET PO SCH ×2 (07:36→17:02)
[2019-10-14] MEDS: FERROUS GLUCONATE 324 MG PO SCH ×2 (07:37→21:02)
[2019-10-14 08:01] LABS: African American GFR (CKD) >90 (>60 ml/min/1.73 sqM); Anion Gap 4 mmol/L; Blood Urea Nitrogen 13 mg/dL (9-20); Calcium 7.8 mg/dL (8.4-10.2); Carbon Dioxide 31 mmol/L (22-30); Chloride 106 mmol/L (98-107); Glucose 75 mg/dL (74-99); Non-African American GFR(CKD) 82 (>60 ml/min/1.73 sqM); Potassium 3.4 mmol/L (3.5-5.1); Sodium 141 mmol/L (137-145)
[2019-10-14 08:23] LABS: Anisocytosis Slight; Basophils % (A) 1 %; Eosinophils # (A) 0.1 k/uL (0-0.7); Eosinophils % (A) 3 %; HCT 29.8 % (39.0-53.0); HGB 9.4 gm/dL (13.0-17.5); Hypochromasia Moderate; Lymphocytes # (A) 0.9 k/uL (1.0-4.8); Lymphocytes % (A) 22 %; MCH 32.7 pg (25.0-35.0); MCHC 31.7 g/dL (31.0-37.0); MCV 103.3 fL (80.0-100.0); Macrocytosis Marked; Mean Platelet Volume 8.5; Monocytes # (A) 0.3 k/uL (0-1.0); Monocytes % (A) 7 %; Neutrophils # (A) 2.5 k/uL (1.3-7.7); Neutrophils % (A) 64 %; Platelet Count 274 k/uL (150-450); RBC 2.88 m/uL (4.30-5.90); RDW 19.4 % (11.5-15.5); WBC 3.9 k/uL (3.8-10.6)
[2019-10-14] MEDS: IPRATROPIUM-ALBUTEROL 3 ML NEB INHALATION PRN ×2 (08:41→11:49)
[2019-10-14 10:05] LABS: Poikilocytosis (M) Present
[2019-10-14] MEDS ORDERED: DEXAMETHASONE SOD PHOSPHATE 10 MG/ML 1 ML VIAL IV STA (11:59)
--- NOTE | 2019-10-14 12:19 | P.PN ---
Subjective This is a pleasant 69 years old with past medical history of pulmonary embolism, atrial fibrillation, diastolic congestive heart failure with ejection fraction of 60-65%, alcohol abuse, right renal carcinoma and follow-up at [facility], benign prostatic hypertrophy, diverticulitis abdominal hernia, dizziness and fall with right rib fracture on 2018. He follows with Dr. Mcadams and Dr. Hood in the outpatient setting. Patient presents because of 2 days of dyspnea with a dry cough associated with headache and dizziness, dizzy spells especially postural dizziness whenever he gets up. He denies chest pain, however he has chronic back pain and he sees an orthopedic as an outpatient. No nausea vomiting or swallowing a problem, no problem with his bowel movements. Abdominal pain. At baseline and he uses a walker but still he needs help with ambulation Follow last 2 days he starts seeing sneaks Patient confirmed to me he is still on Eliquis 5 mg Vitals stable and patient is afebrile. No leukocytosis. INR is 1.1, BMP and liver enzymes are unremarkable. EKG showing normal sinus rhythm at [address]-T abnormality. QTC is 432. Chest x-ray: Bilateral infiltrates and pleural effusion suspicious for pneumonia. ProBNP his 1618 On admission patient was started on Zithromax and Rocephin. 10/14/2019 Patient breathing is better, he has leg swelling, his redness and tenderness in both legs are improving significantly after 2 day of IV antibiotics. However patient is still feels generally weak and he says he has difficulty walking and feeling some postural dizziness. He denies chest pain or abdominal pain or nausea vomiting or diarrhea. Patient is an okay sign of weakness in his legs and usually uses a walker and he can walk for example to do his grocery in the last week for example, also he states that his tailgate of his truck fell on his back about one month ago, he went to see his orthopedic Dr. Diaz twice for evaluation. Also he says that his weakness in the upper extremity but less pronounced. Patient says whenever he gets infection he gets such weakness and happened to him before. Patient also complaining of from back pain in the lower back more and total a lesser extent in the middle back. Vitals and labs are reviewed on the looks stable. Blood culture no growth. He change antibiotics to oral Keflex. He remains on IV Lasix 40 mg twice daily. Also noticed that patient was taken only Cortef 5 mg While at home he was taking 10 mg daily and 5 at night, however he missed 10 mg morning dose yesterday today. Don't resume that and give him 1 extra dose of Decadron which might contribute to this patient's weakness Objective - Vital Signs Vital signs: Vital Signs Temp 98.3 F 10/14/19 06:57 Pulse 80 10/14/19 08:51 Resp 19 10/14/19 08:30 BP 110/68 10/14/19 06:57 Pulse Ox 91 L 10/14/19 01:04 Intake & Output 10/13/19 10/14/19 10/14/19 18:59 06:59 18:59 Intake Total 775 225 Output Total 500 Balance 775 -500 225 Weight 96.5 kg 98.5 kg Intake: Oral 775 225 Output: Urine 500 Other: # Voids 1 1 - Exam GENERAL: The patient is alert and oriented x3, not in any acute distress. Well developed, well nourished. HEENT: Pupils are round and equally reacting to light. EOMI. No scleral icterus. No conjunctival pallor. Normocephalic, atraumatic. No pharyngeal erythema. No thyromegaly. CARDIOVASCULAR: S1 and S2 present. No murmurs, rubs, or gallops. PULMONARY: Chest is clear to auscultation, no wheezing. Bilateral basal crepitation ABDOMEN: Soft, nontender, nondistended, normoactive bowel sounds. No palpable organomegaly. MUSCULOSKELETAL: No joint swelling or deformity. -EXTREMITIES: No cyanosis, clubbing. Bilateral leg redness and warmth and tenderness, bilateral leg pitting edema, improving NEUROLOGICAL: Gross neurological examination did not reveal any focal deficits. SKIN: No rashes. No petechiae - Labs CBC & Chem 7: 10/14/19 07:03 10/14/19 07:03 Labs: Abnormal Lab Results - Last 24 Hours (Table) 10/14/19 10/14/19 Range/Units 07:03 07:03 RBC 2.88 L (4.30-5.90) m/uL Hgb 9.4 L (13.0-17.5) gm/dL Hct 29.8 L (39.0-53.0) % MCV 103.3 H (80.0-100.0) fL RDW 19.4 H (11.5-15.5) % Lymphocytes # 0.9 L (1.0-4.8) k/uL Macrocytosis Marked A Potassium 3.4 L (3.5-5.1) mmol/L Carbon Dioxide 31 H (22-30) mmol/L Calcium 7.8 L (8.4-10.2) mg/dL Microbiology - Last 24 Hours (Table) 10/12/19 17:45 Blood Culture - Preliminary Blood No Growth after 24 hours Assessment and Plan Assessment: Bilateral basal infiltrates and consolidation with pleural effusion, suspicious for CHF, pneumonia acute on chronic diastolic heart failure Generalized weakness, related to under treatment for adrenal insufficiency Recent history of back trauma with back pain Bilateral lower extremity cellulitis , improving hallucinations Atrial fibrillation Alcohol abuse Benign prostatic hypertrophy History of pulmonary embolism History of diverticulitis Abdominal hernia History of fall and rib fracture Plan: This is a pleasant 69 years old male who presents with respiratory system, suspicious for CHF, leg cellulitis and hallucinations. Continue with antibiotic s, follow-up culture results. Continue bronchodilators and oxygen as needed. Continue with IV Lasix. Consult pulmonary and psychiatric services. Call Dr. Diaz as is known to the patient for his back pain. Resume his morning dose of Cortef 10 mg daily and Extra Dose of Decadron. Check TSH and B12 Labs and medication were reviewed.. Continue same treatment. Continue with symptomatic treatment. Resume home medication. Monitor lytes and vitals. DVT and GI prophylaxis. Further recommendations of the clinical course of the patient DVT prophylaxis: eliquis GI Prophylaxis: Protonix PT/OT: Need subacute rehab Prognosis is guarded
[2019-10-14] MEDS: CEPHALEXIN 500 MG CAP PO SCH ×3 (12:21→21:20)
[2019-10-14] MEDS: HYDROCORTISONE 10 MG TAB PO SCH ×2 (13:40→21:20)
--- NOTE | 2019-10-14 15:37 | P.PN ---
Subjective Progress Note Date: 10/14/19 Principal diagnosis: Weakness, chest pain, shortness of breath on exertion, orthostatic hypotension On 10/14/2019 patient seen in follow-up on her general medical floor, he is re sting comfortably in bed, he still feels little weak, little wobbly on his feet, he has been ambulating with a walker and supervision, but otherwise doing well, no syncopal episodes, blood pressure is stable, 100/64, room air pulse ox 94%, he denies any difficulty breathing, his been afebrile. No complaints of chest pain. These labs have been reviewed, white blood cell, 3.9, hemoglobin is 9.4, sodium is 141, potassium is 3.4, chloride is 106, CO2 is 31, increased reflexes lites and renal profile were within normal limits, influenza screen was negative. Culture has been negative. Patient continues on Cortef 10 mg in the morning 5 mg at bedtime, she remains on midodrine at 15 mg 3 times daily Objective - Vital Signs Vital signs: Vital Signs Temp 98.2 F 10/14/19 15:00 Pulse 70 10/14/19 15:00 Resp 18 10/14/19 15:00 BP 100/64 10/14/19 15:00 Pulse Ox 94 L 10/14/19 15:00 Intake & Output 10/13/19 10/14/19 10/14/19 18:59 06:59 18:59 Intake Total 775 450 Output Total 500 Balance 775 -500 450 Weight 96.5 kg 98.5 kg Intake: Oral 775 450 Output: Urine 500 Other: # Voids 1 1 3 - Exam GENERAL EXAM: Alert, pleasant, 69-year-old white male room air, with a pulse ox 95%, comfortable in no apparent distress. HEAD: Normocephalic/atraumatic. EYES: Normal reaction of pupils, equal size. Conjunctiva pink, sclera white. NOSE: Clear with pink turbinates. THROAT: No erythema or exudates. NECK: No masses, no JVD, no thyroid enlargement, no adenopathy. CHEST: No chest wall deformity. Symmetrical expansion. LUNGS: Equal air entry with no crackles, wheeze, rhonchi or dullness. CVS: Regular rate and rhythm, normal S1 and S2, no gallops, no murmurs, no rubs ABDOMEN: Soft, nontender. No hepatosplenomegaly, normal bowel sounds, no guarding or rigidity. EXTREMITIES: No clubbing, no edema, no cyanosis, 2+ pulses and upper and lower extremities. MUSCULOSKELETAL: Muscle strength and tone normal. SPINE: No scoliosis or deformity SKIN: No rashes CENTRAL NERVOUS SYSTEM: Alert and oriented -3. No focal deficits, tone is n ormal in all 4 extremities. PSYCHIATRIC: Alert and oriented -3. Appropriate affect. Intact judgment and insight. - Labs CBC & Chem 7: 10/14/19 07:03 10/14/19 07:03 Labs: Abnormal Lab Results - Last 24 Hours (Table) 10/14/19 10/14/19 Range/Units 07:03 07:03 RBC 2.88 L (4.30-5.90) m/uL Hgb 9.4 L (13.0-17.5) gm/dL Hct 29.8 L (39.0-53.0) % MCV 103.3 H (80.0-100.0) fL RDW 19.4 H (11.5-15.5) % Lymphocytes # 0.9 L (1.0-4.8) k/uL Macrocytosis Marked A Potassium 3.4 L (3.5-5.1) mmol/L Carbon Dioxide 31 H (22-30) mmol/L Calcium 7.8 L (8.4-10.2) mg/dL Microbiology - Last 24 Hours (Table) 10/12/19 17:45 Blood Culture - Preliminary Blood No Growth after 24 hours Assessment and Plan Plan: Assessment: #1. Orthostatic hypotension, with lightheadedness and dizziness on abrupt ri sing #2. History of shortness of breath, likely related to underlying mild fluid overload #3. History of atrial fibrillation on anticoagulation #4. Osteoarthritis #5. History of pulmonary embolism on anticoagulation #6. History of chronic episodes of pancreatitis #7. Previous history of alcohol abuse #8. Status post cryoablation of right renal hyperdense nephroma #9. Previous chest trauma with resultant pneumothorax probably contusion and rib fractures requiring chest tube drainage #10. Diverticular disease #11. Benign colonic polyps #12. Degenerative joint disease #13. History of adrenal insufficiency on Cortef #14. Multiple previous surgeries including bariatric surgery Plan: From pulmonary perspective patient remains stable, no pulmonary complaints, he is on room air, denies any chest pain, denies any cough or congestion, still has some weakness in his legs and wobbly gait, he usually uses a walker no nipple episodes today, he is on Cortef and midodrine, from pulmonary perspective patient is stable, we will sign off and follow on as-needed basis I performed a history & physical examination of the patient and discussed their management with my nurse practitioner, Nargis Gordon. I reviewed the nurse practitioner's note and agree with the documented findings and plan of care. Lung sounds are positive for clear breath sounds. The findings and the impression was discussed with the patient. I attest to the documentation by the nurse practitioner. Time with Patient: Less than 30
--- NOTE | 2019-10-14 20:11 | CONS ---
CONSULTATION DATE OF SERVICE: 10/14/2019. PURPOSE FOR CONSULTATION: Evaluate for visual hallucinations. HISTORY OF PRESENTING ILLNESS: The patient is a 69-year-old male. He was admitted for dyspnea and cough. He had postural dizziness. He was diagnosed with pneumonia and has been started on antibiotics. From a psychiatric standpoint, the patient has visual hallucinations. He will see snakes crawling. He also sees some slinky-type objects. Sometimes they may be up moving in the corners of the wall. When I talked to the patient, he said in fact he could see a snake across the room from his bed. According to the patient, he said he had not had these kind of hallucinations until he came into the hospital. It is noteworthy that on Dr. Hopkins' assessment, he indicated "hallucinations." He did not make a specific reference to hallucinations in his initial evaluation. The patient says that prior to coming into the hospital he did not experience any of these visions. He said it only started since he has been in the hospital. He reports no past history of any mental health issues. He is not currently on any psychotropic medications nor has he been on any in the past. He has not had any significant issues with anxiety, depression or other related problems. He does have a history of alcohol use. He was somewhat unclear about specifics. He was vague about whether he had past issues with drinking. He said in the last few months he has only been drinking a few times. He said he had two drinks at [place]; prior to that he might have one beer per week, though nothing more than that. He notes that he has been on [place] for the past 2 to 3 months due to lower back problems. He says he has "pressure fracture and degenerative disc disease." It is noteworthy that there is no list of opioids on his home medication list. The patient says he has been sleeping on and off. He says what he experienced prior to coming into the hospital was some shivers and chills. MENTAL STATUS: Patient was sitting on the side of the bed. He gave fair eye contact. Psychomotor motor activity was a little restless. He answered questions appropriately. His thoughts were clear. It is noteworthy that at one point he began talking about some test he was having and that he was anticipating getting the results when he got out of the hospital. He referenced his kidneys. He made comments about a test that Dr. Mendoza was following him on. Dr. Mendoza's note did not it indicate anything in this regard. It is unclear whether the patient talking about this particular issue was possibly a cognitive issue, possibly with some confusion. Generally his mood was even. On cognitive exam he was oriented x3 and alert. He was able to give me appropriate details about aspects of his treatment. For the most part, he was aware of circumstances and surroundings. ASSESSMENT: This 69-year-old male may be having some degree of delirium relating to his pneumonia and start of antibiotics. The visual hallucinations and possibly even the statement about his kidneys and testing may reflect some of this, even though for the most part his cognition seems fairly well intact. I discussed issues with the patient that there is at least the option that he could consider getting started on antipsychotic medications, possibly at a low dose, particularly if he was feeling that these hallucinations were distressing to him. Nursing did note that he has not shown any significant behavioral issues, confusion or the like that might warrant being on medication. The patient said that based on my discussion, he would choose at this point not to start antipsychotic medications. I reassured the patient that if he changed his mind or if things got more difficult, it would be appropriate to look at starting an antipsychotic. I reviewed these issues with the nurse as well. If the patient seems to show further difficulties, I recommend re-consulting Psychiatry. TOMASA / BENY: [id number] /
--- NOTE | 2019-10-14 21:05 | P.CNNES ---
History of Present Illness Consult date: 10/14/19 Requesting physician: Jet Cerda Reason for Consult: Weakness History of Present Illness: Patient is a 69-year-old male, who was brought to the hospital on 10/12/2019, for chest pain, exertional dyspnea, dizziness of 2 days duration. Neurology was consulted for weakness. Patient states that he has been feeling dizzy spells, shortness of breath, weakness, on and off since summer. He states that he started seeing hallucinations about a week ago. Patient states that he feels weakness slightly more in the left leg as compared to the right and he sometimes drags. Patient has history of chronic neck and back pain, off and on for a long time. He states he has history of to compression fracture in the thoracic vertebrae. He takes [place] 5/325, one to 2 tablets a day. He also had total left knee arthroplasty. Patient has history of malignant renal cancer, that was treated with ablation in 2017. Patient has smoked 1 pack per day for 10 years, quit in 1988. He also used to drink heavily, but quit 1-1/2 years ago. He is to drink heavily for 6 years. At present patient is single, lives by himself. He uses walker all the time. He has been using walker since he had the left knee surgery in 2015. He has 1 daughter who lives in [place] and the son lives in [place]. Patient had a computed tomography scan of head on 09/19/2019, which revealed cerebral atrophy with no acute intracranial abnormality. Patient had a 2-D echo on 07/25/2019 which revealed atrial fibrillation, mild concentric LVH. Overall left-ventricular systolic function is normal between 60-65%. Right ventricle is mild to moderately enlarged. Left atrial size is normal. Chest x-ray showed bilateral infiltrate and pleural effusion, correlate for pneumonia. No overt failure. Left lower lateral rib cage deformities, correlate for previous trauma. Patient had arterial Doppler of lower extremities on 09/08/2018, which was normal. Past Medical History Past Medical History: Atrial Fibrillation, Blood Disorder, Cancer, Osteoarthritis (OA), Pulmonary Embolus (PE) Additional Past Medical History / Comment(s): Afib/RVR, pulmonary embolism L lung, pancreatitis multiple times, ETOH abuse, was diagnosed with R renal carcinoma with cryoablation at [place], BPH, past R lung pneumo with chest tube, diverticulitis, benign colon polyps, arthritis multiple joints, abdominal hernias. Dizziness fall and right rib fractures 09/15/18,. Adrenal insufficiently History of Any Multi-Drug Resistant Organisms: None Reported Past Surgical History: Bariatric Surgery, Bowel Resection, Cholecystectomy, Hernia Repair, Joint Replacement Additional Past Surgical History / Comment(s): Recent (2017) r kidney lesion cryoablation at [facility], 2013 bowel resection d/t viscus perf with colostomy later reversed , gastric sleeve converted to darrell-en-Y 08/2014-post op wound infection, paraesphogeal hiat hernia repair, R inguinal and umbilical hernia repairs, colonoscopies, L total knee arthroplasty., Past Anesthesia/Blood Transfusion Reactions: No Reported Reaction Past Psychological History: No Psychological Hx Reported Additional Psychological History / Comment(s): Pt resides alone. He is independent. He is retired from [employer]. No experience. No travel history. Reformed smoker. History of alcoholism. Denies injection drug use or other recreational drug use. No animals in the home Smoking Status: Former smoker Past Alcohol Use History: None Reported Additional Past Alcohol Use History / Comment(s): SMOKING: FOR 15 YRS, STOPPED, 1987. ETOH: HISTORY OF ABUSE, 6 to 8 mixed drinks per week ; 10/12/19 Patient reports only occasional ETOH use Past Drug Use History: None Reported - Past Family History Father Family Medical History: COPD, Myocardial Infarction (AK) Additional Family Medical History / Comment(s): Father from a AK at the age of 69yrs. Mother Family Medical History: Cancer Additional Family Medical History / Comment(s): Mother from ovarian cancer at the age of 69yrs. Sister(s) Family Medical History: Cancer Additional Family Medical History / Comment(s): at age 74yrs. Had breast cancer and a defibrillator Medications and Allergies Home Medications Medication Instructions Recorded Confirmed Type Allopurinol [Zyloprim] 300 mg PO DAILY@0900 #30 tab 08/12/19 10/12/19 Rx Cholecalciferol [Vitamin D3 (25 5,000 unit PO DAILY@0900 #30 tab 08/12/19 10/12/19 Rx Mcg = 1000 Iu)] Ferrous Gluconate 324 mg PO BID@0900,2100 #30 tab 08/12/19 10/12/19 Rx Furosemide [Lasix] 40 mg PO DAILY@0900 #30 tab 08/12/19 10/12/19 Rx Midodrine [ProAmatine] 15 mg PO TID@0800,1200,1700 #60 tab 08/12/19 10/12/19 Rx Cyclobenzaprine [Flexeril] 10 mg PO DAILY PRN 09/19/19 10/12/19 History Pantoprazole Sodium [Protonix] 40 mg PO BID 09/19/19 10/12/19 History Hydrocortisone [Cortef] 5 mg PO HS 09/20/19 10/12/19 History Hydrocortisone [Cortef] 10 mg PO DAILY 09/20/19 10/12/19 History Potassium Chloride ER [K-Dur 20] 20 meq PO DAILY 09/20/19 10/12/19 History Metoprolol Tartrate [Lopressor] 50 mg PO BID tab 09/26/19 10/12/19 Rx Multivitamins, Thera [Multivitamin 1 tab PO DAILY@0900 10/12/19 10/12/19 History (formulary)] Allergies Allergy/AdvReac Type Severity Reaction Status Date / Time No Known Allergies Allergy Verified 10/12/19 17:52 Physical Examination - Vital Signs Vital Signs: Vital Signs Temp Pulse Pulse Resp BP Pulse Ox 10/14/19 15:00 98.2 F 70 18 100/64 94 L 10/14/19 11:58 76 10/14/19 11:50 76 10/14/19 08:51 80 10/14/19 08:43 76 10/14/19 08:30 80 19 10/14/19 06:57 98.3 F 85 19 110/68 10/14/19 01:04 98.0 F 98 12 119/65 91 L 10/13/19 21:41 118/73 10/13/19 21:31 74 10/13/19 21:21 95 10/13/19 21:18 69 18 Intake and Output 10/14/19 10/14/19 10/14/19 06:59 14:59 22:59 Intake Total 450 220 Output Total 500 Balance -500 450 220 Intake: Oral 450 220 Output: Urine 500 Other: Voiding Method Urinal # Voids 1 3 On examination patient is an elderly male, in no acute distress. He is alert and awake. He is fully oriented knows it is September 2019 and name of the city and state he is in and the president. Speech and language functions are normal. Attention and concentration fund of knowledge appears adequate for age. Patient is slightly tremulous, probably metabolic tremor. On cranial nerve exam. Pupils are round and reactive to light, visual valdez are full on confrontation, except muscles are intact with no nystagmus. Face symmetric and tongue protrudes the midline. Palatal elevation and sensation normal. On muscle strength testing the strength is normal in the arms except left deltoid which is weak from arthritis. Patient's hip flexion is about 4, knee extension normal ankle dorsiflexion 5-bilaterally. Reflexes are diminished to absent, and plantars are downgoing. Sensory touch is equal. No ataxia for [id number] testing. Patient has fine tremors of outstretched hands. Bulk of muscles appears normal. No obvious bruit S1 and S2 audible. Results Patient's B12 is 409, TSH normal. Liver functions are normal. Renal functions normal. UA is negative. Influenza screen negative. Patient's last hemoglobin A1c is 4.8 on 12/06/2018. Patient's ammonia was normal , 09/15/2018. Methylmalonic acid 0.24 normal on 05/12/2019. RBC folate normal. Vitamin B1 normal 80. Patient's rheumatoid factor was elevated 06/09 on 08/24/2014. - Laboratory Findings CBC and BMP: 10/14/19 07:03 10/14/19 07:03 Abnormal Lab Findings: Abnormal Labs 10/12/19 10/12/19 10/13/19 15:27 15:27 02:55 RBC 3.10 L Hgb 10.1 L Hct 31.7 L MCV 102.2 H RDW 19.9 H Lymphocytes # 0.8 L Macrocytosis Potassium Chloride 108 H Carbon Dioxide Calcium 8.2 L Total Bilirubin 1.6 H Alkaline Phosphatase 245 H Total Protein 5.5 L Albumin 2.2 L Urine Ketones 1+ H Urine RBC 19 H Amorphous Sediment Rare H Hyaline Casts 13 H Urine Mucus Rare H 10/14/19 10/14/19 07:03 07:03 RBC 2.88 L Hgb 9.4 L Hct 29.8 L MCV 103.3 H RDW 19.4 H Lymphocytes # 0.9 L Macrocytosis Marked A Potassium 3.4 L Chloride Carbon Dioxide 31 H Calcium 7.8 L Total Bilirubin Alkaline Phosphatase Total Protein Albumin Urine Ketones Urine RBC Amorphous Sediment Hyaline Casts Urine Mucus Assessment and Plan Assessment: * 69-year-old male admitted for shortness of breath, dizziness and generalized weakness. Patient has been diagnosed with pneumonia and pleural effusion. Patient also has anemia with hemoglobin 9.4. Patient appears to have some degree of metabolic encephalopathy at this time. Examination also reveals metabolic tremors in both arms. * Weakness, likely multifactorial. Patient's history of previous compression fractures, degenerative joint disease, and above metabolic conditions may be contributing. Patient was slightly hyporeflexic, need to rule out peripheral neuropathy. Patient also has chronic back pain, therefore may have some degree of spondylosis. B12 level is normal. Patient is nondiabetic. Plan: * Consider checking an MRI of cervical and lumbar spines to rule out spondylosis. * Suggest EMG and nerve conductions of lower extremities as an outpatient. * PT OT evaluate gait. * Treatment of various metabolic conditions as mentioned above, as per internal medicine.
[2019-10-15 07:33] LABS: Anisocytosis Slight; Basophils % (A) 0 %; Eosinophils % (A) 0 %; HCT 30.2 % (39.0-53.0); HGB 9.1 gm/dL (13.0-17.5); Hypochromasia Slight; Lymphocytes # (A) 0.7 k/uL (1.0-4.8); Lymphocytes % (A) 17 %; MCH 31.2 pg (25.0-35.0); MCHC 30.3 g/dL (31.0-37.0); Macrocytosis Marked; Mean Platelet Volume 8.5; Monocytes # (A) 0.3 k/uL (0-1.0); Monocytes % (A) 7 %; Neutrophils # (A) 3.1 k/uL (1.3-7.7); Neutrophils % (A) 73 %; Platelet Count 260 k/uL (150-450); RBC 2.93 m/uL (4.30-5.90); RDW 19.6 % (11.5-15.5); WBC 4.2 k/uL (3.8-10.6)
[2019-10-15 07:53] LABS: African American GFR (CKD) >90 (>60 ml/min/1.73 sqM); Anion Gap 4 mmol/L; Blood Urea Nitrogen 15 mg/dL (9-20); Calcium 8.3 mg/dL (8.4-10.2); Carbon Dioxide 28 mmol/L (22-30); Chloride 107 mmol/L (98-107); Glucose 96 mg/dL (74-99); Non-African American GFR(CKD) >90 (>60 ml/min/1.73 sqM); Potassium 3.3 mmol/L (3.5-5.1); Sodium 139 mmol/L (137-145)
[2019-10-15] MEDS: MIDODRINE 5 MG TAB PO SCH ×3 (08:02→16:39)
[2019-10-15] MEDS: FERROUS GLUCONATE 324 MG PO SCH ×2 (08:03→20:09)
[2019-10-15] MEDS: FUROSEMIDE 10 MG/ML 4 ML VIAL IV SCH ×2 (08:05→20:09)
[2019-10-15] MEDS: POTASSIUM CHLORIDE ER 20 MEQ TAB.ER PO SCH (08:05)
[2019-10-15] MEDS: ALLOPURINOL 300 MG TAB PO SCH (08:06)
[2019-10-15] MEDS: CEPHALEXIN 500 MG CAP PO SCH ×4 (08:06→20:08)
[2019-10-15] MEDS: PANTOPRAZOLE 40 MG TABLET PO SCH ×2 (08:06→16:40)
[2019-10-15] MEDS: METOPROLOL TARTRATE 50 MG TAB PO SCH ×2 (08:06→20:08)
[2019-10-15] MEDS: HYDROCORTISONE 10 MG TAB PO SCH ×2 (08:06→20:08)
[2019-10-15] MEDS: APIXABAN 5 MG TAB PO SCH ×2 (08:06→20:08)
[2019-10-15] MEDS ORDERED: DEXAMETHASONE SOD PHOSPHATE 4 MG/ML 1 ML VIAL IV PRN (11:33)
[2019-10-15] MEDS ORDERED: LORazepam 1 MG TAB PO PRN ×2 (11:36→18:31)
--- NOTE | 2019-10-15 11:39 | P.PN ---
Subjective This is a pleasant 69 years old with past medical history of pulmonary embolism, atrial fibrillation, diastolic congestive heart failure with ejection fraction of 60-65%, alcohol abuse, right renal carcinoma and follow-up at [facility], benign prostatic hypertrophy, diverticulitis abdominal hernia, dizziness and fall with right rib fracture on 2018. He follows with Dr. Mcadams and Dr. Hood in the outpatient setting. Patient presents because of 2 days of dyspnea with a dry cough associated with headache and dizziness, dizzy spells especially postural dizziness whenever he gets up. He denies chest pain, however he has chronic back pain and he sees an orthopedic as an outpatient. No nausea vomiting or swallowing a problem, no problem with his bowel movements. Abdominal pain. At baseline and he uses a walker but still he needs help with ambulation Follow last 2 days he starts seeing sneaks Patient confirmed to me he is still on Eliquis 5 mg Vitals stable and patient is afebrile. No leukocytosis. INR is 1.1, BMP and liver enzymes are unremarkable. EKG showing normal sinus rhythm at [address]-T abnormality. QTC is 432. Chest x-ray: Bilateral infiltrates and pleural effusion suspicious for pneumonia. ProBNP his 1618 On admission patient was started on Zithromax and Rocephin. 10/14/2019 Patient breathing is better, he has leg swelling, his redness and tenderness in both legs are improving significantly after 2 day of IV antibiotics. However patient is still feels generally weak and he says he has difficulty walking and feeling some postural dizziness. He denies chest pain or abdominal pain or nausea vomiting or diarrhea. Patient is an okay sign of weakness in his legs and usually uses a walker and he can walk for example to do his grocery in the last week for example, also he states that his tailgate of his truck fell on his back about one month ago, he went to see his orthopedic Dr. Diaz twice for evaluation. Also he says that his weakness in the upper extremity but less pronounced. Patient says whenever he gets infection he gets such weakness and happened to him before. Patient also complaining of from back pain in the lower back more and total a lesser extent in the middle back. Vitals and labs are reviewed on the looks stable. Blood culture no growth. He change antibiotics to oral Keflex. He remains on IV Lasix 40 mg twice daily. Also noticed that patient was taken only Cortef 5 mg While at home he was taking 10 mg daily and 5 at night, however he missed 10 mg morning dose yesterday today. Don't resume that and give him 1 extra dose of Decadron which might contribute to this patient's weakness 10/15/2019 Patient states that his weakness is improved compared to yesterday however this about 50% compared to his prostate. He still have some shakiness and hallucinations with confusion at times and a sitter was placed because of this however when I saw him this morning he was fully awake and oriented, he was calm, he did not have any hallucination at that time. He says that his weakness is better, his back pain is better, his shortness of breath is improved as well as cellulitis and bilateral leg swelling. Pulmonary have signed off. However because of his ongoing weakness we given him more steroids. Neurology recommended MRI of the cervical and lumbar spine, I'm going to add MRI of the thoracic spine due to recent history of trauma to the back. I spoke with orthopedic team that he will not be available told this Thursday. However neurology already saw the patient and we do an MRI. Patient states that he had MRI of his left shoulder about 2 years ago and that he does not have any mental in his body after that, a phobia, no pacemaker, known asthma clips were hold. TSH and B12 are within normal limits Objective - Vital Signs Vital signs: Vital Signs Temp 98.1 F 10/15/19 07:00 Pulse 82 10/15/19 07:00 Resp 18 10/15/19 07:00 BP 134/87 10/15/19 07:00 Pulse Ox 95 10/15/19 07:00 Intake & Output 10/14/19 10/15/19 10/15/19 18:59 06:59 18:59 Intake Total 670 Balance 670 Weight 93 kg Intake: Oral 670 Other: Voiding Method Urinal # Voids 3 1 # Bowel Movements 1 - Exam GENERAL: The patient is alert and oriented x3, not in any acute distress. Well developed, well nourished. HEENT: Pupils are round and equally reacting to light. EOMI. No scleral icterus. No conjunctival pallor. Normocephalic, atraumatic. No pharyngeal erythema. No thyromegaly. CARDIOVASCULAR: S1 and S2 present. No murmurs, rubs, or gallops. PULMONARY: Chest is clear to auscultation, no wheezing. Bilateral basal crepitation ABDOMEN: Soft, nontender, nondistended, normoactive bowel sounds. No palpable organomegaly. MUSCULOSKELETAL: No joint swelling or deformity. -EXTREMITIES: No cyanosis, clubbing. Bilateral leg redness and warmth and tenderness, bilateral leg pitting edema, improving NEUROLOGICAL: Gross neurological examination did not reveal any focal deficits. SKIN: No rashes. No petechiae - Labs CBC & Chem 7: 10/15/19 06:37 10/15/19 06:37 Labs: Abnormal Lab Results - Last 24 Hours (Table) 10/15/19 10/15/19 Range/Units 06:37 06:37 RBC 2.93 L (4.30-5.90) m/uL Hgb 9.1 L (13.0-17.5) gm/dL Hct 30.2 L (39.0-53.0) % MCV 103.0 H (80.0-100.0) fL MCHC 30.3 L (31.0-37.0) g/dL RDW 19.6 H (11.5-15.5) % Lymphocytes # 0.7 L (1.0-4.8) k/uL Macrocytosis Marked A Potassium 3.3 L (3.5-5.1) mmol/L Calcium 8.3 L (8.4-10.2) mg/dL Microbiology - Last 24 Hours (Table) 10/12/19 17:45 Blood Culture - Preliminary Blood No Growth after 48 hours Assessment and Plan Assessment: Bilateral basal infiltrates and consolidation with pleural effusion, suspicious for CHF, improving acute on chronic diastolic heart failure, improving Generalized weakness, related to under treatment for adrenal insufficiency, rule out spondylosis Recent history of back trauma with back pain, rule out spondylosis Bilateral lower extremity cellulitis , improving hallucinations Atrial fibrillation Alcohol abuse Benign prostatic hypertrophy History of pulmonary embolism History of diverticulitis Abdominal hernia History of fall and rib fracture Plan: This is a pleasant 69 years old male who presents with respiratory system, suspicious for CHF, leg cellulitis and hallucinations. Continue with antibiotics, follow-up culture results. Continue bronchodilators and oxygen as needed. Continue with IV Lasix. Recommendation by Consult pulmonary and psychiatric services. Follow-up with neurology recommendation with MRI of the spine. Resume his morning dose of Cortef 10 mg daily and Extra Dose of Decadron. Labs and medication were reviewed.. Continue same treatment. Continue with symptomatic treatment. Resume home medication. Monitor lytes and vitals. DVT and GI prophylaxis. Further recommendations of the clinical course of the patie nt DVT prophylaxis: eliquis GI Prophylaxis: Protonix PT/OT: Need subacute rehab Prognosis is guarded
--- NOTE | 2019-10-15 14:52 | MR ---
EXAMINATION TYPE: MR cspine/lspine wo con DATE OF EXAM: 10/15/2019 COMPARISON: HISTORY: Back pain, r/o spondylosis Multiplanar multiecho imaging of the cervical and lumbar spine was performed without contrast. There is endplate spur formation at C5-6 with some encroachment on the spinal canal posteriorly. Exam is limited slightly by motion. The spinal canal is narrowed to 7.5 mm at C5-6. Cervical cord shows n o edema. The brainstem is intact. There is no cervical paraspinal mass. There is narrowing also at C6 -7 and C7-T1 disc spaces. There is mild anterior subluxation of C4 in relation to C5. Lumbar vertebra have normal alignment. There is degenerative disc space narrowing throughout the lumb ar spine. There is no lumbar compression fracture. Lumbar exam limited slightly by motion. Lumbar ner ve roots appear normal. There is 10% depression of the superior endplate of L1 vertebra. On the T1 im ages this vertebra shows decreased signal consistent with some edema. There is no lumbar paraspinal m ass. IMPRESSION: The cervical spine exam shows mild relative spinal stenosis at C5-6 with posterior disc herniation an d spur formation. No cord edema. No fracture. There is a minimal 3 mm degenerative spondylolisthesis of C4-5. Lumbar spine exam demonstrates evidence of an acute or subacute mild compression fracture of L1 verte bral body with edema. Multilevel lumbar spondylotic changes.
--- NOTE | 2019-10-15 15:43 | P.CRDCN ---
History of Present Illness Consult date: 10/15/19 Consult reason: congestive heart failure History of present illness: The patient is a 69-year-old male with past medical history of chronic diastolic heart failure, paroxysmal atrial fibrillation, pulmonary emboli, and chronic alcohol abuse, who presented to the hospital for shortness of breath and dizziness. Cardiology was consulted for a BNP of 1680. EKG shows sinus rhythm with PACs. Previous echocardiogram in July 2019 reveals normal LV function with mild LVH and mild mitral regurgitation. On exam, the patient is currently lying in bed hallucinating. He has talking to several months standing outside of his window. When asked, he does not know where he is and states he was brought here after being "in the hospital for several days." He denies any chest pain, palpitations, dizziness, or vertigo. He states he does occasionally get short of breath. PAST MEDICAL HISTORY: Chronic diastolic heart failure, paroxysmal atrial fibrillation, coronary emboli, EtOH abuse REVIEW OF SYSTEMS: No fever or chills. No cough or expectoration. No diaphoresis. Patient denies headache, dizziness, blurred vision, double vision. Patient denies any stomach discomfort. No nausea, vomiting. No hematochezia. No hematemesis. Denies any black stools or blood in his stools. Denies dysuria or hematuria. No muscle weakness or numbness. Positive for shortness of breath PHYSICAL EXAMINATION: This is a 69-year-old male who is confused at the time of my examination. HEENT: Head is atraumatic, normocephalic. Pupils are equal, round. Sclerae anicteric. Conjunctivae are clear. Mucous membranes of the mouth are moist. Neck is supple. There is no jugular venous distention. No carotid bruit is heard. CHEST EXAMINATION: Lungs are clear to auscultation. No chest wall tenderness is noted on palpation or with deep breathing. HEART EXAMINATION: Heart rate irregular. S1, S2 heard. Systolic murmur audible. No gallops or rub. ABDOMEN: Soft, nontender. Bowel sounds are heard. No organomegaly noted. Palpable umbilical hernia. EXTREMITIES: 2+ peripheral pulses with no evidence of peripheral edema and no calf tenderness noted. NEUROLOGIC EXAMINATION: Patient is awake, alert and oriented x1 LABORATORY DATA: WBC 4.2, hemoglobin 9.1, hematocrit 30.2, platelet 260, sodium 139, potassium 3.3, BUN 15, creatinine 0.84, TSH 3.3, troponin 1 normal Vital signs: Blood pressure 120/77. Pulse 86, temperature 98.4F, respirations 16, SpO2 93% on room air FINAL ASSESSMENT AND PLAN: #1 diastolic heart failure, elevated BNP #2 shortness of breath #3 paroxysmal atrial fibrillation, on Eliquis #4 confusion #5 EtOH abuse #6 hypokalemia, on supplementation protocol PLAN: Continue current medication regimen, including diuretics. Electrolyte supplementation per primary care. Past Medical History Past Medical History: Atrial Fibrillation, Blood Disorder, Cancer, Oste oarthritis (OA), Pulmonary Embolus (PE) Additional Past Medical History / Comment(s): Afib/RVR, pulmonary embolism L lung, pancreatitis multiple times, ETOH abuse, was diagnosed with R renal carcinoma with cryoablation at [place], [facility] past R lung pneumo with chest tube, diverticulitis, benign colon polyps, arthritis multiple joints, abdominal hernias. Dizziness fall and right rib fractures 09/15/18,. Adrenal insufficiently History of Any Multi-Drug Resistant Organisms: None Reported Past Surgical History: Bariatric Surgery, Bowel Resection, Cholecystectomy, Hernia Repair, Joint Replacement Additional Past Surgical History / Comment(s): Recent (2017) r kidney lesion cryoablation at [facility], 2013 bowel resection d/t viscus perf with colostomy later reversed , gastric sleeve converted to darrell-en-Y 08/2014-post op wound infection, paraesphogeal hiat hernia repair, R inguinal and umbilical hernia repairs, colonoscopies, L total knee arthroplasty., Past Anesthesia/Blood Transfusion Reactions: No Reported Reaction Past Psychological History: No Psychological Hx Reported Additional Psychological History / Comment(s): Pt resides alone. He is independent. He is retired from [employer]. No experience. No travel history. Reformed smoker. History of alcoholism. Denies injection drug use or other recreational drug use. No animals in the home Smoking Status: Former smoker Past Alcohol Use History: None Reported Additional Past Alcohol Use History / Comment(s): SMOKING: FOR 15 YRS, STOPPED, 1987. ETOH: HISTORY OF ABUSE, 6 to 8 mixed drinks per week ; 10/12/19 Patient reports only occasional ETOH use Past Drug Use History: None Reported - Past Family History Father Family Medical History: COPD, Myocardial Infarction (IA) Additional Family Medical History / Comment(s): Father from a IA at the age of 69yrs. Mother Family Medical History: Cancer Additional Family Medical History / Comment(s): Mother from ovarian cancer at the age of 69yrs. Sister(s) Family Medical History: Cancer Additional Family Medical History / Comment(s): at age 74yrs[address] Had [address] cancer and a defibrillator Medications and Allergies Home Medications Medication Instructions Recorded Confirmed Type Allopurinol [Zyloprim] 300 mg PO DAILY@0900 #30 tab 08/12/19 10/12/19 Rx Cholecalciferol [Vitamin D3 (25 5,000 unit PO DAILY@0900 #30 tab 08/12/19 10/12/19 Rx Mcg = 1000 Iu)] Ferrous Gluconate 324 mg PO BID@0900,2100 #30 tab 08/12/19 10/12/19 Rx Furosemide [Lasix] 40 mg PO DAILY@0900 #30 tab 08/12/19 10/12/19 Rx Midodrine [ProAmatine] 15 mg PO TID@0800,1200,1700 #60 tab 08/12/19 10/12/19 Rx Cyclobenzaprine [Flexeril] 10 mg PO DAILY PRN 09/19/19 10/12/19 History Pantoprazole Sodium [Protonix] 40 mg PO BID 09/19/19 10/12/19 History Hydrocortisone [Cortef] 5 mg PO HS 09/20/19 10/12/19 History Hydrocortisone [Cortef] 10 mg PO DAILY 09/20/19 10/12/19 History Potassium Chloride ER [K-Dur 20] 20 meq PO DAILY 09/20/19 10/12/19 History Metoprolol Tartrate [Lopressor] 50 mg PO BID tab 09/26/19 10/12/19 Rx Multivitamins, Thera [Multivitamin 1 tab PO DAILY@0900 10/12/19 10/12/19 History (formulary)] Allergies Allergy/AdvReac Type Severity Reaction Status Date / Time No Known Allergies Allergy Verified 10/12/19 17:52 Physical Exam Vitals: Vital Signs Temp Pulse Resp BP Pulse Ox 10/15/19 07:00 98.1 F 82 18 134/87 95 10/15/19 01:04 98.1 F 73 12 125/72 96 10/15/19 00:55 12 10/14/19 19:17 98.3 F 85 12 118/71 94 L Intake and Output 10/15/19 10/15/19 10/15/19 06:59 14:59 22:59 Intake Total 800 Balance 800 Intake: Oral 800 Other: # Voids 1 3 # Bowel Movements 2 Results 10/15/19 06:37 10/15/19 06:37 CBC 10/15/19 Range/Units 06:37 WBC 4.2 (3.8-10.6) k/uL RBC 2.93 L (4.30-5.90) m/uL Hgb 9.1 L (13.0-17.5) gm/dL Hct 30.2 L (39.0-53.0) % Plt Count 260 (150-450) k/uL Comprehensive Metabolic Panel 10/15/19 Range/Units 06:37 Sodium 139 (137-145) mmol/L Potassium 3.3 L (3.5-5.1) mmol/L Chloride 107 (98-107) mmol/L Carbon Dioxide 28 (22-30) mmol/L BUN 15 (9-20) mg/dL Creatinine 0.84 (0.66-1.25) mg/dL Glucose 96 (74-99) mg/dL Calcium 8.3 L (8.4-10.2) mg/dL Current Medications Generic Name Dose Route Start Last Admin Trade Name Freq PRN Reason Stop Dose Admin Hydrocodone Bitart/Acetaminophen 1 each 10/13/19 10:14 10/13/19 22:34 [place] 5-325 PO 1 each Q6HR PRN Administration Pain Albuterol/Ipratropium 3 ml 10/12/19 22:30 10/14/19 11:49 Duoneb 0.5 Mg-3 Mg/3 Ml Soln INHALATION 3 ml RT-Q4H PRN Administration Shortness Of Breath Or Wheezing Allopurinol 300 mg 10/14/19 09:00 10/15/19 08:06 Zyloprim PO 300 mg DAILY@0900 JESSY Administration Apixaban 5 mg 10/13/19 10:00 10/15/19 08:06 Eliquis PO 5 mg BID JESSY Administration Cephalexin 500 mg 10/14/19 13:00 10/15/19 12:18 Keflex PO 500 mg QID JESSY Administration Cyclobenzaprine HCl 10 mg 10/12/19 20:00 10/13/19 08:32 Flexeril PO 10 mg DAILY PRN Administration MUSCLE SPASMS Dexamethasone Sodium Phosphate 4 mg 10/15/19 11:33 Decadron IV Q6HR PRN Nausea And Vomiting Furosemide 40 mg 10/13/19 21:00 10/15/19 08:05 Lasix IV 40 mg Q12HR JESSY Administration Hydrocortisone 5 mg 10/12/19 21:00 10/14/19 21:20 Cortef PO 5 mg HS JESSY Administration Hydrocortisone 10 mg 10/14/19 12:00 10/15/19 08:06 Cortef PO 10 mg DAILY JESSY Administration Lorazepam 1 mg 10/15/19 11:36 10/15/19 13:17 Ativan PO 1 mg ONCE PRN Administration Sedation Metoprolol Tartrate 50 mg 10/12/19 21:00 10/15/19 08:06 Lopressor PO 50 mg BID JESSY Administration Midodrine 15 mg 10/13/19 08:00 10/15/19 12:17 Proamatine PO Not Given TID@0800,1200,1700 [facility] Miscellaneous Information 1 each 10/12/19 17:28 Pneumonia Protocol Utilized PO ONCE PRN Per Protocol Non-Formulary Medication 324 mg 10/13/19 21:00 10/15/19 08:03 Ferrous Gluconate [Ferrous Gluconate] PO Not Given BID@0900,2100 [facility] Pantoprazole Sodium 40 mg 10/12/19 21:00 10/15/19 08:06 Protonix PO 40 mg AC-BID JESSY Administration Potassium Chloride 20 meq 10/14/19 09:00 10/15/19 08:05 K-Dur 20 PO 20 meq DAILY JESSY Administration Intake and Output 10/15/19 10/15/19 10/15/19 06:59 14:59 22:59 Intake Total 800 Balance 800 Intake: Oral 800 Other: # Voids 1 3 # Bowel Movements 2 10/15/19 06:37 10/15/19 06:37
[2019-10-15] MEDS: CYCLOBENZAPRINE 10 MG TAB PO PRN (16:40)
[2019-10-15] MEDS: DEXAMETHASONE SOD PHOSPHATE 4 MG/ML 1 ML VIAL IV SCH (20:09)
[2019-10-16] MEDS: DEXAMETHASONE SOD PHOSPHATE 4 MG/ML 1 ML VIAL IV SCH ×5 (00:07→23:18)
[2019-10-16] MEDS: CEPHALEXIN 500 MG CAP PO SCH ×5 (06:36→20:04)
[2019-10-16] MEDS: APIXABAN 5 MG TAB PO SCH ×3 (06:36→20:03)
[2019-10-16] MEDS: FUROSEMIDE 10 MG/ML 4 ML VIAL IV SCH ×3 (06:36→20:04)
[2019-10-16] MEDS: METOPROLOL TARTRATE 50 MG TAB PO SCH ×3 (06:36→20:04)
[2019-10-16] MEDS: HYDROCORTISONE 10 MG TAB PO SCH ×3 (06:37→20:03)
[2019-10-16 07:26] LABS: Calcium 8.5 mg/dL (8.4-10.2); Potassium 3.5 mmol/L (3.5-5.1)
[2019-10-16 07:38] LABS: Anisocytosis Slight; Basophils % (A) 0 %; Eosinophils % (A) 0 %; HCT 30.1 % (39.0-53.0); HGB 8.9 gm/dL (13.0-17.5); Hypochromasia Marked; Lymphocytes # (A) 0.4 k/uL (1.0-4.8); Lymphocytes % (A) 12 %; MCH 31.1 pg (25.0-35.0); MCHC 29.5 g/dL (31.0-37.0); MCV 105.6 fL (80.0-100.0); Macrocytosis Marked; Mean Platelet Volume 8.9; Monocytes # (A) 0.1 k/uL (0-1.0); Monocytes % (A) 3 %; Neutrophils # (A) 2.8 k/uL (1.3-7.7); Neutrophils % (A) 85 %; Platelet Count 273 k/uL (150-450); RBC 2.85 m/uL (4.30-5.90); RDW 19.2 % (11.5-15.5); WBC 3.4 k/uL (3.8-10.6)
[2019-10-16] MEDS: ALLOPURINOL 300 MG TAB PO SCH (08:35)
[2019-10-16] MEDS: POTASSIUM CHLORIDE ER 20 MEQ TAB.ER PO SCH (08:35)
[2019-10-16] MEDS: PANTOPRAZOLE 40 MG TABLET PO SCH ×2 (08:35→17:06)
[2019-10-16] MEDS: FERROUS GLUCONATE 324 MG PO SCH ×2 (08:44→21:06)
[2019-10-16] MEDS: MIDODRINE 5 MG TAB PO SCH ×3 (08:44→17:05)
--- NOTE | 2019-10-16 10:20 | P.PN ---
Subjective This is a pleasant 69 years old with past medical history of pulmonary embolism, atrial fibrillation, diastolic congestive heart failure with ejection fraction of 60-65%, alcohol abuse, right renal carcinoma and follow-up at [facility], benign prostatic hypertrophy, diverticulitis abdominal hernia, dizziness and fall with right rib fracture on 2018. He follows with Dr. Mcadams and Dr. Hood in the outpatient setting. Patient presents because of 2 days of dyspnea with a dry cough associated with headache and dizziness, dizzy spells especially postural dizziness whenever he gets up. He denies chest pain, however he has chronic back pain and he sees an orthopedic as an outpatient. No nausea vomiting or swallowing a problem, no problem with his bowel movements. Abdominal pain. At baseline and he uses a walker but still he needs help with ambulation Follow last 2 days he starts seeing sneaks Patient confirmed to me he is still on Eliquis 5 mg Vitals stable and patient is afebrile. No leukocytosis. INR is 1.1, BMP and liver enzymes are unremarkable. EKG showing normal sinus rhythm at [address]-T abnormality. QTC is 432. Chest x-ray: Bilateral infiltrates and pleural effusion suspicious for pneumonia. ProBNP his 1618 On admission patient was started on Zithromax and Rocephin. 10/14/2019 Patient breathing is better, he has leg swelling, his redness and tenderness in both legs are improving significantly after 2 day of IV antibiotics. However patient is still feels generally weak and he says he has difficulty walking and feeling some postural dizziness. He denies chest pain or abdominal pain or nausea vomiting or diarrhea. Patient is an okay sign of weakness in his legs and usually uses a walker and he can walk for example to do his grocery in the last week for example, also he states that his tailgate of his truck fell on his back about one month ago, he went to see his orthopedic Dr. Diaz twice for evaluation. Also he says that his weakness in the upper extremity but less pronounced. Patient says whenever he gets infection he gets such weakness and happened to him before. Patient also complaining of from back pain in the lower back more and total a lesser extent in the middle back. Vitals and labs are reviewed on the looks stable. Blood culture no growth. He change antibiotics to oral Keflex. He remains on IV Lasix 40 mg twice daily. Also noticed that patient was taken only Cortef 5 mg While at home he was taking 10 mg daily and 5 at night, however he missed 10 mg morning dose yesterday today. Don't resume that and give him 1 extra dose of Decadron which might contribute to this patient's weakness 10/15/2019 Patient states that his weakness is improved compared to yesterday however this about 50% compared to his prostate. He still have some shakiness and hallucinations with confusion at times and a sitter was placed because of this however when I saw him this morning he was fully awake and oriented, he was calm, he did not have any hallucination at that time. He says that his weakness is better, his back pain is better, his shortness of breath is improved as well as cellulitis and bilateral leg swelling. Pulmonary have signed off. However because of his ongoing weakness we given him more steroids. Neurology recommended MRI of the cervical and lumbar spine, I'm going to add MRI of the thoracic spine due to recent history of trauma to the back. I spoke with orthopedic team that he will not be available told this Thursday. However neurology already saw the patient and we do an MRI. Patient states that he had MRI of his left shoulder about 2 years ago and that he does not have any mental in his body after that, a phobia, no pacemaker, known asthma clips were hold. TSH and B12 are within normal limits 10/16/2019 Patient feels the same as yesterday with his generalized weakness otherwise somewhat improved, no other new symptoms, he looks Santos ca;m compared to yesterday.MRI of the lumbar spine showing mild compression of fracture, probably patient has osteoporoses. MRI of the thoracic spine is pending. His leg cellulitis and breathing are significantly improved. Orthopedic team have been consulted Objective - Vital Signs Vital signs: Vital Signs Temp 98.7 F 10/16/19 01:05 Pulse 71 10/16/19 01:05 Resp 18 10/16/19 01:05 BP 114/64 10/16/19 01:05 Pulse Ox 94 L 10/16/19 01:05 Intake & Output 10/15/19 10/16/19 10/16/19 18:59 06:59 18:59 Intake Total 800 Output Total 300 Balance 800 -300 Weight 90.2 kg Intake: Oral 800 Output: Urine 300 Other: Voiding Method Urinal # Voids 3 3 # Bowel Movements 2 1 - Exam GENERAL: The patient is alert and oriented x3, not in any acute distress. Well developed, well nourished. HEENT: Pupils are round and equally reacting to light. EOMI. No scleral icterus. No conjunctival pallor. Normocephalic, atraumatic. No pharyngeal erythema. No thyromegaly. CARDIOVASCULAR: S1 and S2 present. No murmurs, rubs, or gallops. PULMONARY: Chest is clear to auscultation, no wheezing. Bilateral basal crepitation ABDOMEN: Soft, nontender, nondistended, normoactive bowel sounds. No palpable organomegaly. MUSCULOSKELETAL: No joint swelling or deformity. -EXTREMITIES: No cyanosis, clubbing. Bilateral leg redness and warmth and tenderness, bilateral leg pitting edema, improving NEUROLOGICAL: Gross neurological examination did not reveal any focal deficits. SKIN: No rashes. No petechiae - Labs CBC & Chem 7: 10/16/19 06:31 10/16/19 06:31 Labs: Abnormal Lab Results - Last 24 Hours (Table) 10/16/19 10/16/19 Range/Units 06:31 06:31 WBC 3.4 L (3.8-10.6) k/uL RBC 2.85 L (4.30-5.90) m/uL Hgb 8.9 L (13.0-17.5) gm/dL Hct 30.1 L (39.0-53.0) % MCV 105.6 H (80.0-100.0) fL MCHC 29.5 L (31.0-37.0) g/dL RDW 19.2 H (11.5-15.5) % Lymphocytes # 0.4 L (1.0-4.8) k/uL Macrocytosis Marked A Chloride 109 H (98-107) mmol/L Glucose 118 H (74-99) mg/dL Microbiology - Last 24 Hours (Table) 10/12/19 17:45 Blood Culture - Preliminary Blood No Growth after 72 hours Assessment and Plan Assessment: Bilateral basal infiltrates and consolidation with pleural effusion, suspicious for CHF, improving acute on chronic diastolic heart failure, improving Generalized weakness, related to under treatment for adrenal insufficiency, rule out spondylosis Mild compression fracture of L1 Osteoporosis Recent history of back trauma with back pain, rule out spondylosis Bilateral lower extremity cellulitis , improving hallucinations Atrial fibrillation Alcohol abuse Benign prostatic hypertrophy History of pulmonary embolism History of diverticulitis Abdominal hernia History of fall and rib fracture Plan: This is a pleasant 69 years old male who presents with respiratory system, suspicious for CHF, leg cellulitis and hallucinations. Continue with antibiotics, follow-up culture results. Continue bronchodilators and oxygen as needed. Continue with IV Lasix. Start the patient on calcium/vitamin D . Follow-up with neurology recommendation with MRI of the spine. Resume his morning dose of Cortef 10 mg daily and Extra Dose of Decadron. Labs and medication were reviewed.. Continue same treatment. Continue with symptomatic treatment. Resume home medication. Monitor lytes and vitals. DVT and GI prophylaxis. Further recommendations of the clinical course of the patient DVT prophylaxis: eliquis GI Prophylaxis: Protonix PT/OT: Need subacute rehab Prognosis is guarded
[2019-10-16] MEDS: CALCIUM CARB-VIT D 500MG-200UN 1 EACH TAB PO SCH ×2 (11:43→17:06)
[2019-10-16] MEDS: HYDROcodone/APAP 5-325MG 1 EACH TAB PO PRN (22:05)
[2019-10-17] MEDS: DEXAMETHASONE SOD PHOSPHATE 4 MG/ML 1 ML VIAL IV SCH (05:13)
[2019-10-17] MEDS: MIDODRINE 5 MG TAB PO SCH ×3 (07:38→17:09)
[2019-10-17] MEDS: FERROUS GLUCONATE 324 MG PO SCH ×2 (07:39→21:42)
[2019-10-17] MEDS: FUROSEMIDE 10 MG/ML 4 ML VIAL IV SCH (07:42)
[2019-10-17] MEDS: HYDROCORTISONE 10 MG TAB PO SCH ×2 (07:49→21:25)
[2019-10-17] MEDS: CEPHALEXIN 500 MG CAP PO SCH ×4 (07:49→21:39)
[2019-10-17] MEDS: ALLOPURINOL 300 MG TAB PO SCH (07:49)
[2019-10-17] MEDS: PANTOPRAZOLE 40 MG TABLET PO SCH ×2 (07:49→17:12)
[2019-10-17] MEDS: APIXABAN 5 MG TAB PO SCH ×2 (07:49→21:25)
[2019-10-17] MEDS: POTASSIUM CHLORIDE ER 20 MEQ TAB.ER PO SCH (07:49)
[2019-10-17] MEDS: CALCIUM CARB-VIT D 500MG-200UN 1 EACH TAB PO SCH ×3 (07:50→17:12)
[2019-10-17] MEDS: METOPROLOL TARTRATE 50 MG TAB PO SCH ×2 (07:50→21:25)
[2019-10-17] MEDS ORDERED: LORazepam 1 MG TAB PO STA (13:51)
--- NOTE | 2019-10-17 13:57 | P.CNOR ---
History of Present Illness - [facility] Consult date: 10/17/19 Requesting physician: Jet E Sheet Consult reason: low back pain (L1 compression fracture deformity), back pain (T horacic back pain) History of present illness: Patient is a very pleasant 69-year-old male who is well known to our service who is seen exam and for further evaluation for ongoing low back pain. Patient is known have sustained compression fracture deformities at T6 and T11 in April 2019. He was seen and examined in the outpatient setting. He was previously prescribed a TLSO brace. He had been wearing this brace as instructed. His last appointment in the office was in July 2019. He was set up for follow- up on an as-needed basis after his last appointment. Patient recently presented to the emergency department on 10/12/2019 with increased shortness of breath. He has been seen and examined by medicine. He was also having significant altered mental status changes. He has been seen by neurology. He's had significant improvement in his overall mental status. He states he continues to have ongoing low back pain. He is not currently experiencing any upper thoracic pain. His pain is most centered along the thoracolumbar junction. He denies any recent new injuries. He denies any lower extremity weakness radiculopathy bilaterally. He has active full range of motion bilateral lower extremities without difficulty. He has been discussing rehabilitation with medicine at the time of discharge. He feels this is a good plan of care for him. He may eventually move to [place] to reside with his daughter. Prior to today's evaluation at the bedside he has had MRI imaging of the cervical and lumbar spine. He is currently scheduled to have an MRI of the thoracic spine this afternoon. He has been able to ambulate with physical therapy. He is currently being treated for bilateral lower extremity cellulitis with Keflex which has be en improving. Patient does have a medical history which includes pulmonary embolism, atrial fibrillation, congestive heart failure, alcohol abuse, and right renal cell carcinoma. Past Medical History Past Medical History: Atrial Fibrillation, Blood Disorder, Cancer, Osteoarthritis (OA), Pulmonary Embolus (PE) Additional Past Medical History / Comment(s): Afib/RVR, pulmonary embolism L lung, pancreatitis multiple times, ETOH abuse, was diagnosed with R renal carcinoma with cryoablation at [place], BPH, past R lung pneumo with chest tube, diverticulitis, benign colon polyps, arthritis multiple joints, abdominal hernias. Dizziness fall and right rib fractures 09/15/18,. Adrenal insufficiently History of Any Multi-Drug Resistant Organisms: None Reported Past Surgical History: Bariatric Surgery, Bowel Resection, Cholecystectomy, Hernia Repair, Joint Replacement Additional Past Surgical History / Comment(s): Recent (2017) r kidney lesion cryoablation at [facility], 2012 bowel resection d/t viscus perf with colostomy later reversed , gastric sleeve converted to darrell-en-Y 08/2014-post op wound infection, paraesphogeal hiat hernia repair, R inguinal and umbilical hernia repairs, colonoscopies, L total knee arthroplasty., Past Anesthesia/Blood Transfusion Reactions: No Reported Reaction Past Psychological History: No Psychological Hx Reported Additional Psychological History / Comment(s): Pt resides alone. He is independent. He is retired from [employer]. No experience. No travel history. Reformed smoker. History of alcoholism. Denies injection drug use or other recreational drug use. No animals in the home Smoking Status: Former smoker Past Alcohol Use History: None Reported Additional Past Alcohol Use History / Comment(s): SMOKING: FOR 15 YRS, STOPPED, 1987. ETOH: HISTORY OF ABUSE, 6 to 8 mixed drinks per week ; 10/12/19 Patient reports only occasional ETOH use Past Drug Use History: None Reported - Past Family History Father Family Medical History: COPD, Myocardial Infarction (RI) Additional Family Medical History / Comment(s): Father from a RI at the age of 69yrs. Mother Family Medical History: Cancer Additional Family Medical History / Comment(s): Mother from ovarian cancer at the age of 69yrs. Sister(s) Family Medical History: Cancer Additional Family Medical History / Comment(s): at age 74yrs. Had breast cancer and a defibrillator Medications and Allergies Home Medications Medication Instructions Recorded Confirmed Type Allopurinol [Zyloprim] 300 mg PO DAILY@0900 #30 tab 08/12/19 10/12/19 Rx Cholecalciferol [Vitamin D3 (25 5,000 unit PO DAILY@0900 #30 tab 08/12/19 10/12/19 Rx Mcg = 1000 Iu)] Ferrous Gluconate 324 mg PO BID@0900,2100 #30 tab 08/12/19 10/12/19 Rx Furosemide [Lasix] 40 mg PO DAILY@0900 #30 tab 08/12/19 10/12/19 Rx Midodrine [ProAmatine] 15 mg PO TID@0800,1200,1700 #60 tab 08/12/19 10/12/19 Rx Cyclobenzaprine [Flexeril] 10 mg PO DAILY PRN 09/19/19 10/12/19 History Pantoprazole Sodium [Protonix] 40 mg PO BID 09/19/19 10/12/19 History Hydrocortisone [Cortef] 5 mg PO HS 09/20/19 10/12/19 History Hydrocortisone [Cortef] 10 mg PO DAILY 09/20/19 10/12/19 History Potassium Chloride ER [K-Dur 20] 20 meq PO DAILY 09/20/19 10/12/19 History Metoprolol Tartrate [Lopressor] 50 mg PO BID tab 09/26/19 10/12/19 Rx Multivitamins, Thera [Multivitamin 1 tab PO DAILY@0900 10/12/19 10/12/19 History (formulary)] Allergies Allergy/AdvReac Type Severity Reaction Status Date / Time No Known Allergies Allergy Verified 10/12/19 17:52 Physical Examination Physical exam: Patient is awake, alert, and oriented 3 Vital signs stable Good chest excursion with deep inspiration and expiration Abdomen soft nontender Examination of thoracic and lumbar spine reveals skin is intact with no abrasions, aspirations, or bruises; no erythema, purulence or signs of infection Pain with palpation along the thoracolumbar junction No pain with palpation of the upper thoracic spine No pain on palpation of the lower lumbar spine Dorsiflexion, plantarflexion, and extensor hallucis longus positive sustained bilaterally Lower extremity strength 5/5 bilaterally No lower extremity hyperreflexia bilaterally Straight leg test negative bilateral lower extremities Negative Lasegue's test bilaterally No signs or symptoms of DVT; no calf pain No pain with internal and external rotation of the hips bilaterally Neurovascularly intact Evidence of some purple pen working on the bilateral lower extremity from previous marking of cellulitis No significant erythema the bilateral lower extremities Some atrophic skin changes over the anterior lower extremities bilaterally Results Pertinent studies: MRI of the cervical and lumbar spine taken on 10/15/2019: Exam is limited by patient movement; C4-5 spondylolisthesis; C5-6 degenerative disc disease, disc herniation, posterior osteophytic spurring resulting in spinal canal stenosis; C6-7 degenerative disc disease; C7-T1 degenerative disease; L2-3 facet arthropathy and some disc bulging with possible stenosis in which imaging is limited due to motion; L3-4 facet arthropathy and disc herniation resulting in central canal stenosis and neuroforaminal stenosis; acute L1 compression fracture deformity with approximately 10% height loss evident on T1 weighted imaging; L4-5 and L5-S1 degenerative disc disease - Labs Labs: Microbiology - Last 24 Hours (Table) 10/12/19 17:45 Blood Culture - Preliminary Blood No Growth after 96 hours H & H 10/12/19 10/14/19 10/15/19 Range/Units 15:27 07:03 06:37 Hgb 10.1 L 9.4 L 9.1 L (13.0-17.5) gm/dL Hct 31.7 L 29.8 L 30.2 L (39.0-53.0) % 10/16/19 Range/Units 06:31 Hgb 8.9 L (13.0-17.5) gm/dL Hct 30.1 L (39.0-53.0) % Coagulation 10/12/19 Range/Units 15:27 INR 1.1 (<1.2) Result Diagrams: 10/16/19 06:31 10/16/19 06:31 Assessment and Plan Assessment: Assessment: Subacute thoracic back pain Acute low back pain Acute L1 compression fracture deformity at approximately 10% height loss L3-4 lumbar stenosis Lumbar facet arthropathy Lumbar degenerative disc disease C5-6 spinal canal stenosis Cervical degenerative disc disease C4-5 spondylolisthesis History of T6 and T11 compression fracture deformities History of pulmonary embolism Atrial fibrillation Congestive heart failure History of alcohol abuse History of right renal cell carcinoma Shortness of breath on presentation (1) L1 vertebral fracture Current Visit: Yes Status: Acute Code(s): S32.019A - UNSP FRACTURE OF FIRST LUMBAR VERTEBRA, INIT FOR CLOS FX SNOMED Code(s): 898585750 (2) T6 vertebral fracture Current Visit: Yes Status: Acute Code(s): S22.059A - UNSP FRACTURE OF T5-T6 VERTEBRA, INIT FOR CLOS FX SNOMED Code(s): 239268284 (3) T11 vertebral fracture Current Visit: Yes Status: Acute Code(s): S22.089A - UNSP FRACTURE OF T11- T12 VERTEBRA, INIT FOR CLOS FX SNOMED Code(s): 474134808 (4) Acute lumbar back pain Current Visit: Yes Status: Acute Code(s): M54.5 - LOW BACK PAIN SNOMED Code(s): 320327531 (5) Lumbar stenosis Current Visit: Yes Status: Acute Code(s): M48.061 - SPINAL STENOSIS, LUMBAR REGION WITHOUT NEUROGENIC FARSHAD SNOMED Code(s): 72386580 (6) Lumbar facet arthropathy Current Visit: Yes Status: Acute Code(s): M47.816 - SPONDYLOSIS W/O MYELOPATHY OR RADICULOPATHY, LUMBAR REGION SNOMED Code(s): 863402460 (7) Spondylolisthesis, cervical region Current Visit: Yes Status: Acute Code(s): M43.12 - SPONDYLOLISTHESIS, CERVICAL REGION SNOMED Code(s): 618015129 (8) Degenerative cervical disc Current Visit: Yes Status: Acute Code(s): M50.30 - OTHER CERVICAL DISC DEGENERATION, UNSP CERVICAL REGION SNOMED Code(s): 20756155 (9) Cervical spinal stenosis Current Visit: Yes Status: Acute Code(s): M48.02 - SPINAL STENOSIS, CERVICAL REGION SNOMED Code(s): 75860722 (10) History of renal cell carcinoma Current Visit: Yes Status: Acute Code(s): Z85.528 - PERSONAL HISTORY OF OTHER MALIGNANT NEOPLASM OF KIDNEY SNOMED Code(s): 250563604 (11) Shortness of breath Current Visit: Yes Status: Acute Code(s): R06.02 - SHORTNESS OF BREATH SNOMED Code(s): 282206915 (12) Atrial fibrillation Current Visit: No Status: Acute Code(s): I48.91 - UNSPECIFIED ATRIAL FIBR ILLATION SNOMED Code(s): 37841391 (13) CHF (congestive heart failure) Current Visit: No Status: Acute Code(s): I50.9 - HEART FAILURE, UNSPECIFIED SNOMED Code(s): 35177630 (14) H/O ETOH abuse Current Visit: No Status: Acute Code(s): Z87.898 - PERSONAL HISTORY OF OTHER SPECIFIED CONDITIONS SNOMED Code(s): 980644492 (15) History of pulmonary embolism Current Visit: No Status: Acute Code(s): Z86.711 - PERSONAL HISTORY OF PULMONARY EMBOLISM SNOMED Code(s): 198117735 (16) Lumbar degenerative disc disease Current Visit: No Status: Acute Code(s): M51.36 - OTHER INTERVERTEBRAL DISC DEGENERATION, LUMBAR REGION SNOMED Code(s): 72799683 (17) Thoracic back pain Current Visit: No Status: Acute Code(s): M54.6 - PAIN IN THORACIC SPINE SNOMED Code(s): 442593781 Plan: Plan: 1. After physical examination the patient, further discussion with the patient, and review of imaging, we are currently waiting for further imaging with the thoracic MRI which is scheduled to be performed today. He does have multilevel degenerative changes at both his cervical spine and lumbar spine. His thoracolumbar pain is his most significant symptom. He is not complaining of any cervical pain. He is not experiencing any lower extremity weakness or radiculopathy bilaterally. Most specifically he does have evidence of a new compression fracture deformity at L1. He was previously treated for compression fracture deformities at T6 and T11. He was previously prescribed a TLSO brace. We discussed he should plan to obtain this brace from home while in the hospital as we will plan to resume him wearing this brace as previously instructed. He will see if some was able to retrieve this brace for him from his home. We also discussed will further assess his thoracic spine following his thoracic MRI. We discussed he should wear this brace while sitting upright at greater than 45, during ambulation, during increase activities, and while working with physical therapy. Brace does not have to be worn while lying in bed or while bathing. We discussed the importance of obtaining this brace prior to his discharge to a rehabilitation facility. We will plan to follow up for further evaluation following his thoracic MRI and will discuss those MRI results. We did discuss following discharge, we will plan have him follow-up in the outpatient setting in approximately 2-3 weeks for further evaluation. Following discharge, patient may follow-up with Kevin Bains PA-C or Dr. Martín Diaz at [facility]. 2. Patient will continue be seen and examined by other medical providers including medicine and neurology Time with Patient: Greater than 30 (Including obtaining history, physical examination, reviewing of imaging, and dictation.)
--- NOTE | 2019-10-17 15:38 | MR ---
EXAMINATION TYPE: MR thoracic spine wo con DATE OF EXAM: 10/17/2019 COMPARISON: MRI cervical and lumbar spine 2 days ago. Chest x-ray 5 days ago and older x-rays. CTA ch est April 24, 2019. HISTORY: Back pain, R/O spondylosis TECHNIQUE: Multiplanar, multisequence imaging of thoracic spine is performed without contrast FINDINGS Spinal cord shows normal course, caliber, and signal as it courses the thoracic spine. Mod erate chronic compression fracture at T10 level corresponds to area of acute or subacute fracture on CT April 24, 2019 with lucency and sclerosis. New mild height loss superior T5 endplate with diminish ed T1 and heterogeneity but no definitive increased T2 signal to definitively suggest acute fracture. Alignment is satisfactory. Tiny posterior disc herniations minimally efface the anterior thecal sac at several levels in the spinal canal. No marked spinal canal effacement. No significant posterior re tropulsion T10 level. Review of the axial images shows no significant spinal canal stenosis or neural foraminal narrowing a t any thoracic level. Small hiatal hernia redemonstrated. Multiple tiny bilateral pleural effusions and fairly again seen. Seen best on coronal images there are old posterior right mid to lower rib fra ctures with bridging osteophytes confirmed on CT. There appears to be new paraspinal prominence anter ior to the posterior right 10th and 11th ribs of intensity near fat on T1-weighted images and slightl y hyperintense on T2-weighted images. Repeat chest CT can be performed to better evaluate and charact erize. I suspect acute/subacute fractures with adjacent pleural based hematoma. IMPRESSION: Moderate chronic compression fracture T10 level. 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 Correlate clinically. Repeat c hest CT can be performed to further evaluate.
[2019-10-17] MEDS: FUROSEMIDE 40 MG TAB PO SCH (17:12)
[2019-10-17] MEDS: DEXAMETHASONE 4 MG TAB PO SCH (21:25)
[2019-10-17] MEDS: HYDROcodone/APAP 5-325MG 1 EACH TAB PO PRN (23:29)
--- NOTE | 2019-10-18 00:53 | P.PN ---
Subjective This is a pleasant 69 years old with past medical history of pulmonary embolism, atrial fibrillation, diastolic congestive heart failure with ejection fraction of 60-65%, alcohol abuse, right renal carcinoma and follow-up at [facility], benign prostatic hypertrophy, diverticulitis abdominal hernia, dizziness and fall with right rib fracture on 2018. He follows with Dr. Mcadams and Dr. Hood in the outpatient setting. Patient presents because of 2 days of dyspnea with a dry cough associated with headache and dizziness, dizzy spells especially postural dizziness whenever he gets up. He denies chest pain, however he has chronic back pain and he sees an orthopedic as an outpatient. No nausea vomiting or swallowing a problem, no problem with his bowel movements. Abdominal pain. At baseline and he uses a walker but still he needs help with ambulation Follow last 2 days he starts seeing sneaks Patient confirmed to me he is still on Eliquis 5 mg Vitals stable and patient is afebrile. No leukocytosis. INR is 1.1, BMP and liver enzymes are unremarkable. EKG showing normal sinus rhythm at [address]-T abnormality. QTC is 432. Chest x-ray: Bilateral infiltrates and pleural effusion suspicious for pneumonia. ProBNP his 1618 On admission patient was started on Zithromax and Rocephin. 10/14/2019 Patient breathing is better, he has leg swelling, his redness and tenderness in both legs are improving significantly after 2 day of IV antibiotics. However patient is still feels generally weak and he says he has difficulty walking and feeling some postural dizziness. He denies chest pain or abdominal pain or nausea vomiting or diarrhea. Patient is an okay sign of weakness in his legs and usually uses a walker and he can walk for example to do his grocery in the last week for example, also he states that his tailgate of his truck fell on his back about one month ago, he went to see his orthopedic Dr. Diaz twice for evaluation. Also he says that his weakness in the upper extremity but less pronounced. Patient says whenever he gets infection he gets such weakness and happened to him before. Patient also complaining of from back pain in the lower back more and total a lesser extent in the middle back. Vitals and labs are reviewed on the looks stable. Blood culture no growth. He change antibiotics to oral Keflex. He remains on IV Lasix 40 mg twice daily. Also noticed that patient was taken only Cortef 5 mg While at home he was taking 10 mg daily and 5 at night, however he missed 10 mg morning dose yesterday today. Don't resume that and give him 1 extra dose of Decadron which might contribute to this patient's weakness 10/15/2019 Patient states that his weakness is improved compared to yesterday however this about 50% compared to his prostate. He still have some shakiness and hallucinations with confusion at times and a sitter was placed because of this however when I saw him this morning he was fully awake and oriented, he was calm, he did not have any hallucination at that time. He says that his weakness is better, his back pain is better, his shortness of breath is improved as well as cellulitis and bilateral leg swelling. Pulmonary have signed off. However because of his ongoing weakness we given him more steroids. Neurology recommended MRI of the cervical and lumbar spine, I'm going to add MRI of the thoracic spine due to recent history of trauma to the back. I spoke with orthopedic team that he will not be available told this Thursday. However neurology already saw the patient and we do an MRI. Patient states that he had MRI of his left shoulder about 2 years ago and that he does not have any mental in his body after that, a phobia, no pacemaker, known asthma clips were hold. TSH and B12 are within normal limits 10/16/2019 Patient feels the same as yesterday with his generalized weakness otherwise somewhat improved, no other new symptoms, he looks Santos ca;m compared to yesterday.MRI of the lumbar spine showing mild compression of fracture, probably patient has osteoporoses. MRI of the thoracic spine is pending. His leg cellulitis and breathing are significantly improved. Orthopedic team have been consulted 10/17/19 pt is more awake and alert , no hallucination , no confusion,he still complains from some back pain , with abrasion on the back . CT thorac showing acute or subacute displaced 10th and 11th ribs with pleural hematoma , orthopedic teams on the case and i discussed the case with and he recommends a brace . home health care case manager consult for providing a brace . pt might benefit from ECF for rehab. change lasix to PO, taper decadrone and c/w cortef. c/w keflex for short course upon discharge for b/l leg cellulitis , improving. Objective - Vital Signs Vital signs: Vital Signs Temp 97.6 F 10/17/19 19:23 Pulse 76 10/17/19 19:23 Resp 16 10/17/19 19:23 BP 146/79 10/17/19 19:23 Pulse Ox 97 10/17/19 19:23 Intake & Output 10/17/19 10/17/19 10/18/19 06:59 18:59 06:59 Intake Total 725 Output Total 750 450 Balance -750 725 -450 Weight 91.2 kg Intake: Oral 725 Output: Urine 750 450 Other: Voiding Method Urinal Urinal Diaper Diaper # Voids 3 1 - Exam GENERAL: The patient is alert and oriented x3, not in any acute distress. Well developed, well nourished. HEENT: Pupils are round and equally reacting to light. EOMI. No scleral icterus. No conjunctival pallor. Normocephalic, atraumatic. No pharyngeal erythema. No thyromegaly. CARDIOVASCULAR: S1 and S2 present. No murmurs, rubs, or gallops. PULMONARY: Chest is clear to auscultation, no wheezing. Bilateral basal crepitation ABDOMEN: Soft, nontender, nondistended, normoactive bowel sounds. No palpable organomegaly. MUSCULOSKELETAL: No joint swelling or deformity. -EXTREMITIES: No cyanosis, clubbing. Bilateral leg redness and warmth and tenderness, bilateral leg pitting edema, improving NEUROLOGICAL: Gross neurological examination did not reveal any focal deficits. SKIN: No rashes. No petechiae - Labs CBC & Chem 7: 10/16/19 06:31 10/16/19 06:31 Labs: Microbiology - Last 24 Hours (Table) 10/12/19 17:45 Blood Culture - Preliminary Blood No Growth after 120 hours Assessment and Plan Assessment: Bilateral basal infiltrates and consolidation with pleural effusion, suspicious for CHF, improving acute on chronic diastolic heart failure, improving Generalized weakness, related to under treatment for adrenal insufficiency, rule out spondylosis Mild compression fracture of L1 Osteoporosis Recent history of back trauma with back pain, rule out spondylosis Bilateral lower extremity cellulitis , improving hallucinations Atrial fibrillation Alcohol abuse Benign prostatic hypertrophy History of pulmonary embolism History of diverticulitis Abdominal hernia History of fall and rib fracture Plan: This is a pleasant 69 years old male who presents with respiratory system, suspicious for CHF, leg cellulitis and hallucinations. Continue with antibiotics,. Continue bronchodilators and oxygen as needed. change IV Lasix to po. Start the patient on calcium/vitamin D .obtains brace and home health care case manager consulted. Resume his morning dose of Cortef 10 mg daily and Extra Dose of Decadron. Labs and medication were reviewed.. Continue same treatment. Continue with symptomatic treatment. Resume home medication. Monitor lytes and vitals. DVT and GI prophylaxis. Further recommendations of the clinical course of the patient DVT prophylaxis: eliquis GI Prophylaxis: Protonix PT/OT: Need subacute rehab Prognosis is guarded
[2019-10-18] MEDS: FERROUS GLUCONATE 324 MG PO SCH ×2 (08:04→21:39)
[2019-10-18] MEDS: MIDODRINE 5 MG TAB PO SCH ×4 (08:18→18:00)
[2019-10-18] MEDS: PANTOPRAZOLE 40 MG TABLET PO SCH ×2 (08:27→18:01)
[2019-10-18] MEDS: POTASSIUM CHLORIDE ER 20 MEQ TAB.ER PO SCH (08:27)
[2019-10-18] MEDS: CEPHALEXIN 500 MG CAP PO SCH ×4 (08:27→21:43)
[2019-10-18] MEDS: FUROSEMIDE 40 MG TAB PO SCH ×2 (08:27→18:01)
[2019-10-18] MEDS: CALCIUM CARB-VIT D 500MG-200UN 1 EACH TAB PO SCH ×3 (08:27→18:01)
[2019-10-18] MEDS: APIXABAN 5 MG TAB PO SCH ×2 (08:27→21:43)
[2019-10-18] MEDS: ALLOPURINOL 300 MG TAB PO SCH (08:27)
[2019-10-18] MEDS: HYDROCORTISONE 10 MG TAB PO SCH ×2 (08:28→21:43)
[2019-10-18] MEDS: DEXAMETHASONE 4 MG TAB PO SCH ×2 (08:28→21:43)
[2019-10-18] MEDS: METOPROLOL TARTRATE 50 MG TAB PO SCH ×2 (08:28→21:43)
--- NOTE | 2019-10-18 13:42 | P.PN ---
Progress Note - Text Progress Note Date: 10/18/19 Orthopedic spine: History of present illness: Patient is a very pleasant 69-year-old male who is well known to our service who is seen exam and for further evaluation for ongoing low back pain. Patient is known have sustained thoracic compression fracture deformities in April 2019. After comparison to recent thoracic MRI, these fracture sites had been identified at T5 and T10 not previously stated T6 and T11. He was seen and examined in the outpatient setting. He was previously prescribed a TLSO brace. He had been wearing this brace as instructed. His last appointment in the office was in July 2019. He was set up for follow-up on an as-needed basis after his last appointment. Patient recently presented to the emergency department on 10/12/2019 with increased shortness of breath. He has been seen and examined by medicine. He was also having significant altered mental status changes. He has been seen by neurology. He's had significant improvement in his overall mental status. He states he continues to have ongoing low back pain. He is not currently experiencing any upper thoracic pain. His pain is most centered along the thoracolumbar junction. He denies any recent new injuries. He does admit to a fall approximately 1-1/2 months ago. He denies any injuries since that time. He denies any lower extremity weakness radiculopathy bilaterally. He has active full range of motion bilateral lower extremities without difficulty. He has been discussing rehabilitation with medicine at the time of discharge. He feels this is a good plan of care for him. He is currently waiting for his family to deliver his TLSO brace, which was previously prescribed, which is at his home. Medicine is planning for discharge to rehabilitation facility tomorrow after the TLSO brace is delivered from his home. He may eventually move to [place] to reside with his daughter. Prior to today's evaluation at the bedside he has had MRI imaging of the thoracic spine. MRI imaging of the cervical and lumbar spine were performed previously and interpreted. He has been able to ambulate with physical therapy. He is currently being treated for bilateral lower extremity cellulitis with Keflex which has been improving. Patient does have a medical history which includes pulmonary embolism, atrial fibrillation, congestive heart failure, alcohol abuse, and right renal cell carcinoma. Physical exam: Patient is awake, alert, and oriented 3 Vital signs stable Good chest excursion with deep inspiration and expiration Abdomen soft nontender Examination of thoracic and lumbar spine reveals skin is intact with no abr asions, aspirations, or bruises; no erythema, purulence or signs of infection Evidence of a healing wound over the right mid upper ribs which patient states is from a previous scratch; no significant edema or bruising at the wound site; no active drainage from the wound site No specific pain to palpation over the right inferior posterior ribs Pain with palpation along the thoracolumbar junction No pain with palpation of the upper thoracic spine No pain on palpation of the lower lumbar spine Dorsiflexion, plantarflexion, and extensor hallucis longus positive sustained bilaterally Lower extremity strength 5/5 bilaterally No lower extremity hyperreflexia bilaterally Straight leg test negative bilateral lower extremities Negative Lasegue's test bilaterally No signs or symptoms of DVT; no calf pain No pain with internal and external rotation of the hips bilaterally Neurovascularly intact Evidence of some purple pen writing on the bilateral lower extremity from previous marking of cellulitis No significant erythema the bilateral lower extremities Some atrophic skin changes over the anterior lower extremities bilaterally Pertinent studies: MRI of these thoracic spine taken on 10/17/2019: Evidence of T5 ENT 10 chronic compression fracture deformities; suspect new or subacute displaced posterior right 10th and 11th rib fractures with adjacent pleural hematoma; no evidence of new thoracic compression fracture deformity; evidence of L1 compression fracture deformity MRI of the cervical and lumbar spine taken on 10/15/2019: Exam is limited by patient movement; C4-5 spondylolisthesis; C5-6 degenerative disc disease, disc herniation, posterior osteophytic spurring resulting in spinal canal stenosis; C6-7 degenerative disc disease; C7-T1 degenerative disease; L2-3 facet arthropathy and some disc bulging with possible stenosis in which imaging is limited due to motion; L3-4 facet arthropathy and disc herniation resulting in central canal stenosis and neuroforaminal stenosis; acute L1 compression fracture deformity with approximately 10% height loss evident on T1 weighted imaging; L4-5 and L5-S1 degenerative disc disease Assessment: Subacute thoracic back pain Acute low back pain Acute L1 compression fracture deformity at approximately 10% height loss Suspected new or subacute right displaced posterior 10th and 11th rib fractures with adjacent pleural hematoma L3-4 lumbar stenosis Lumbar facet arthropathy Lumbar degenerative disc disease C5-6 spinal canal stenosis Cervical degenerative disc disease C4-5 spondylolisthesis History of T5 and T10 compression fracture deformities History of pulmonary embolism Atrial fibrillation Congestive heart failure History of alcohol abuse History of right renal cell carcinoma Shortness of breath on presentation Plan: 1. After physical examination the patient, further discussion with the patient, and review of imaging, we will plan to continue with conservative treatment at this time. He does have multilevel degenerative changes at both his cervical spine and lumbar spine. His thoracolumbar pain is his most significant symptom. He is not complaining of any cervical pain. He is not experiencing any lower extremity weakness or radiculopathy bilaterally. Most specifically he does have evidence of a new compression fracture deformity at L1. He was previously treated for compression fracture deformities at T5 and T10. Reviewing of recent thoracic MRI imaging does show his chronic compression fracture deformities at T5 and T10 along with visualization of the acute L1 fracture. Thoracic MRI also indicates suspected new or subacute right displaced posterior 10th and 11th rib fractures with adjacent pleural hematoma. Patient is not experiencing any significant pain over his right inferior posterior ribs. He does not have any pain with palpation over these ribs. He has sustained a fall previously with his last fall proximal one and a half months ago. He denies any other injuries since that time. In regards to his acute L1 compression fracture, we will plan for bracing. He was previously prescribed a TLSO brace. We discussed he should plan to obtain this brace from home while in the hospital as we will plan to resume him wearing this brace as previously instructed. He will see if some was able to retrieve this brace for him from his home. He states they this brace is scheduled to be delivered to him by his son tomorrow. We discussed he should wear this brace while sitting upright at greater than 45, during ambulation, during increase activities, and while working with physical therapy. Brace does not have to be worn while lying in bed or while bathing. We discussed the importance of obtaining this brace prior to his discharge to a rehabilitation facility. Once this brace is delivered, medicine is playing for discharge to a rehabilitation facility tomorrow. We did discuss following discharge, we will plan have him follow-up in the outpatient setting in approximately 2-3 weeks for further evaluation. Following discharge, patient may follow-up with Kevin Bains PA-C or Dr. Martín Diaz at [facility]. 2. Patient will continue be seen and examined by other medical providers including medicine and neurology 3. We did discuss the patient's adjacent pleural hematoma in regards to his suspected new or subacute displaced posterior right 10th and 11th rib fractures. At this time we do not need to obtain further imaging from an orthopedic standpoint. We discussed if clinically correlated, medicine may plan to order a repeat chest CT at their discretion.
[2019-10-18] MEDS: HYDROcodone/APAP 5-325MG 1 EACH TAB PO PRN ×2 (13:55→23:08)
--- NOTE | 2019-10-18 14:43 | XR ---
EXAMINATION TYPE: XR chest 1V portable DATE OF EXAM: 10/18/2019 COMPARISON: 10/12/2019 HISTORY: Congestive heart failure. Shortness of breath. TECHNIQUE: Single frontal view of the chest is obtained. FINDINGS: Right hemidiaphragm elevation is seen with right basilar linear airspace disease, likely a telectasis. Cardiomediastinal silhouette is enlarged. Healed fracture deformities of the left lower r ibs. Diffuse osseous demineralization. Trace pleural effusion blunts the right costophrenic angle. IMPRESSION: Trace right pleural effusion and right basilar linear airspace disease, likely atelectas is.
--- NOTE | 2019-10-18 15:31 | PN ---
PROGRESS NOTE DATE OF SERVICE: 10/18/2019 This is a 69-year-old gentleman who was admitted with bilateral basilar infiltrates, bilateral pneumonia, pleural effusion, also had CHF. The patient also complaining of back pain. PT, OT evaluation, possible ECF rehab. The back x-rays are pending at this time. A thoracic spine MRI shows moderate chronic compression of the T10 and the most recent chest x-ray done on 10/12 which was reviewed personally by me showed evidence of bibasilar atelectasis, also the NT proBNP average was 1680. The patient is receiving Lasix at this time. Patient will be closely monitored. PAST MEDICAL HISTORY: Reviewed. REVIEW OF SYSTEMS: CARDIOVASCULAR SYSTEM: As mentioned earlier. RESPIRATORY: As mentioned earlier. GI: As mentioned earlier. : No dysuria. NERVOUS SYSTEM: No focal deficits. CURRENT MEDICATIONS: Reviewed and include: 1. [place] 5 mg q.6 p.r.n. 2. DuoNeb q.i.d. p.r.n. 3. Zyloprim. 4. Eliquis 5 mg p.o. b.i.d. 5. Os-Mane with vitamin D. 6. Keflex. 7. Lasix p.o. 8. Cortef 5 mg p.o. q.h.s. and 10 mg p.o. daily. 9. Ativan. 10.Lopressor. 11.ProAmatine. 12.Protonix. PHYSICAL EXAMINATION: Alert and oriented x3, pulse 71, blood pressure 109/68, respiration 16, temperature 97.4, pulse ox 94% on room air. HEENT: Conjunctivae normal. Oral mucosa moist. NECK: No jugular venous distention. No lymph node enlargement. CARDIOVASCULAR SYSTEMS: S1, S2., muffled. RESPIRATION: Breath sounds diminished at the bases, a few scattered rhonchi, no crackles. ABDOMEN: Soft, obese, nontender. LEGS: Bilateral leg edema. NERVOUS SYSTEM: Diffusely weak. LABS: WBC is 4.2, hemoglobin is 9.1, sodium 139, potassium 3.3. ASSESSMENT: 1. Congestive heart failure, acute exacerbation with acute on chronic diastolic dysfunction. 2. Paroxysmal atrial fibrillation on Eliquis. 3. Change in mental status, acute metabolic encephalopathy multifactorial. 4. Adrenocortical insufficiency. 5. Weakness. 6. L1 compression fracture and back pain. 7. Gait dysfunction. 8. Bilateral lower extremity cellulitis. 9. Hallucinations. 10.History of EtOH abuse. 11.History of benign prostatic hypertrophy. 12.History of pulmonary embolism. 13.History of diverticulitis. 14.History of abdominal hernia. 15.History of fall and rib fractures. RECOMMENDATIONS AND DISCUSSION: In this 69-year-old gentleman with multiple medical issues, at this time I recommend to continue the current management and symptomatic treatment. Continue with potassium supplementation, otherwise repeat labs also. Will also order a chest x-ray stat to assess the fluid balance. PT, OT evaluation, brace. Symptomatic treatment. Possible ECF rehab within the next 24-48 hours. MMODL / IJN: [id number] / MTDD
[2019-10-19 07:39] VITALS: BP 128/68; PULSE 60; RESP 16; TEMP 98
[2019-10-19 08:04] LABS: African American GFR (CKD) >90 (>60 ml/min/1.73 sqM); Anion Gap 4 mmol/L; Blood Urea Nitrogen 30 mg/dL (9-20); Carbon Dioxide 31 mmol/L (22-30); Chloride 104 mmol/L (98-107); Glucose 121 mg/dL (74-99); Non-African American GFR(CKD) 81 (>60 ml/min/1.73 sqM); Potassium 3.7 mmol/L (3.5-5.1); Sodium 139 mmol/L (137-145)
[2019-10-19 08:18] LABS: Anisocytosis Slight; Basophils % (A) 0 %; Eosinophils % (A) 0 %; HCT 32.3 % (39.0-53.0); HGB 9.7 gm/dL (13.0-17.5); Hypochromasia Moderate; Lymphocytes # (A) 0.7 k/uL (1.0-4.8); Lymphocytes % (A) 13 %; MCH 30.9 pg (25.0-35.0); MCHC 29.9 g/dL (31.0-37.0); MCV 103.3 fL (80.0-100.0); Macrocytosis Moderate; Mean Platelet Volume 8.9; Monocytes # (A) 0.3 k/uL (0-1.0); Monocytes % (A) 5 %; Neutrophils # (A) 4.3 k/uL (1.3-7.7); Neutrophils % (A) 81 %; Platelet Count 286 k/uL (150-450); RBC 3.13 m/uL (4.30-5.90); RDW 18.6 % (11.5-15.5); WBC 5.3 k/uL (3.8-10.6)
[2019-10-19] MEDS: MIDODRINE 5 MG TAB PO SCH ×2 (08:27→12:18)
[2019-10-19] MEDS: CALCIUM CARB-VIT D 500MG-200UN 1 EACH TAB PO SCH ×2 (08:27→12:18)
[2019-10-19] MEDS: APIXABAN 5 MG TAB PO SCH (08:27)
[2019-10-19] MEDS: ALLOPURINOL 300 MG TAB PO SCH (08:27)
[2019-10-19] MEDS: FUROSEMIDE 40 MG TAB PO SCH (08:28)
[2019-10-19] MEDS: METOPROLOL TARTRATE 50 MG TAB PO SCH (08:28)
[2019-10-19] MEDS: PANTOPRAZOLE 40 MG TABLET PO SCH (08:28)
[2019-10-19] MEDS: DEXAMETHASONE 4 MG TAB PO SCH (08:28)
[2019-10-19] MEDS: POTASSIUM CHLORIDE ER 20 MEQ TAB.ER PO SCH (08:28)
[2019-10-19] MEDS: CEPHALEXIN 500 MG CAP PO SCH ×2 (08:28→12:18)
[2019-10-19] MEDS: HYDROCORTISONE 10 MG TAB PO SCH (08:29)
[2019-10-19] MEDS: FERROUS GLUCONATE 324 MG PO SCH (08:29)
[2019-10-19] MEDS ORDERED: MULTIVITAMINS, THERA 1 EACH TAB PO SCH (09:00)
[2019-10-19] MEDS ORDERED: CHOLECALCIFEROL 1,000 UNIT TAB PO SCH (09:00)
--- NOTE | 2019-10-19 14:43 | P.DS ---
Providers Date of admission: 10/12/19 17:28 Expected date of discharge: 10/19/19 Attending physician: Jonah Powell Consults: 10/13/19 09:52 Consult Physician Routine Consulting Provider: Mickey Mendoza Consult Reason/Comments: possible b/l pna Do you want consulting provider notified?: Yes 10/13/19 10:48 Consult Physician Routine Consulting Provider: Satinder Landeros Consult Reason/Comments: hallucinations Do you want consulting provider notified?: Yes 10/14/19 11:31 Consult Physician Routine Consulting Provider: Nawaf Diaz Consult Reason/Comments: previous back injury Do you want consulting provider notified?: Yes 10/14/19 12:46 Consult Physician Routine Consulting Provider: Mirta Padilla Consult Reason/Comments: weakness Do you want consulting provider notified?: Yes Primary care physician: Rebekah Hood Hospital Course: discharge diagnosis Acute on chronic CHF with diastolic dysfunction Paroxysmal atrial fibrillation on anticoagulation to decrease Bilateral lower action to be cellulitis improving clinically Acute metabolic encephalopathy multifactorial improved now Chronic adrenal insufficiency Acute thoracic back pain and low back pain. L1 compression fracture, L3-L4 lumbar stenosis New were subacute right displaced posterior 10th and 11th rib fractures with adjacent pleural hematoma. Gait dysfunction secondary to above Hallucinations improved History of EtOH abuse BPH History of PE History of diverticulitis History of abdominal hernia Hospital course This is a pleasant 69 years old with past medical history of pulmonary embolism, atrial fibrillation, diastolic congestive heart failure with ejection fraction of 60-65%, alcohol abuse, right renal carcinoma and follow-up at [facility], benign prostatic hypertrophy, diverticulitis abdominal hernia, dizziness and fall with right rib fracture on 2018. He follows with Dr. Mcadams and Dr. Hood in the outpatient setting. Patient presents because of 2 days of dyspnea with a dry cough associated with headache and dizziness, dizzy spells especially postural dizziness whenever he gets up. He denies chest pain, however he has chronic back pain and he sees an orthopedic as an outpatient. No nausea vomiting or swallowing a problem, no problem with his bowel movements. Abdominal pain. At baseline and he uses a walker but still he needs help with ambulation Follow last 2 days he starts seeing sneaks Patient confirmed to me he is still on Eliquis 5 mg Vitals stable and patient is afebrile. No leukocytosis. INR is 1.1, BMP and liver enzymes are unremarkable. EKG showing normal sinus rhythm at [address]-T abnormality. QTC is 432. Chest x-ray: Bilateral infiltrates and pleural effusion suspicious for pneumonia. ProBNP his 1618 On admission patient was started on Zithromax and Rocephin. 10/14/2019 Patient breathing is better, he has leg swelling, his redness and tenderness in both legs are improving significantly after 2 day of IV antibiotics. However patient is still feels generally weak and he says he has difficulty walking and feeling some postural dizziness. He denies chest pain or abdominal pain or nausea vomiting or diarrhea. Patient is an okay sign of weakness in his legs and usually uses a walker and he can walk for example to do his grocery in the last week for example, also he states that his tailgate of his truck fell on his back about one month ago, he went to see his orthopedic Dr. Diaz twice for evaluation. Also he says that his weakness in the upper extremity but less pronounced. Patient says whenever he gets infection he gets such weakness and happened to him before. Patient also complaining of from back pain in the lower back more and total a lesser extent in the middle back. Vitals and labs are reviewed on the looks stable. Blood culture no growth. He change antibiotics to oral Keflex. He remains on IV Lasix 40 mg twice daily. Also noticed that patient was taken only Cortef 5 mg While at home he was taking 10 mg daily and 5 at night, however he missed 10 mg morning dose yesterday today. Don't resume that and give him 1 extra dose of Decadron which might contribute to this patient's weakness 10/15/2019 Patient states that his weakness is improved compared to yesterday however this about 50% compared to his prostate. He still have some shakiness and hallucinations with confusion at times and a sitter was placed because of this however when I saw him this morning he was fully awake and oriented, he was calm, he did not have any hallucination at that time. He says that his weakness is better, his back pain is better, his shortness of breath is improved as well as cellulitis and bilateral leg swelling. Pulmonary have signed off. However because of his ongoing weakness we given him more steroids. Neurology recommended MRI of the cervical and lumbar spine, I'm going to add MRI of the thoracic spine due to recent history of trauma to the back. I spoke with orthopedic team that he will not be available told this Thursday. However neurology already saw the patient and we do an MRI. Patient states that he had MRI of his left shoulder about 2 years ago and that he does not have any mental in his body after that, a phobia, no pacemaker, known asthma clips were hold. TSH and B12 are within normal limits 10/16/2019 Patient feels the same as yesterday with his generalized weakness otherwise somewhat improved, no other new symptoms, he looks Santos ca;m compared to yesterday.MRI of the lumbar spine showing mild compression of fracture, probably patient has osteoporoses. MRI of the thoracic spine is pending. His leg cellulitis and breathing are significantly improved. Orthopedic team have been consulted 10/17/19 pt is more awake and alert , no hallucination , no confusion,he still complains from some back pain , with abrasion on the back . CT thorac showing acute or subacute displaced 10th and 11th ribs with pleural hematoma , orthopedic teams on the case and i discussed the case with and he recommends a brace . case aide consult for providing a brace . pt might benefit from ECF for rehab. change lasix to PO, taper decadrone and c/w cortef. c/w keflex for short course upon discharge for b/l leg cellulitis , improving. 10/19/2019 Patient is currently lying in the bed comfortably. Able to walk to the bathroom without much support. Patient was seen by orthopedic surgery and back brace was provided which he can wear while walking. Patient had MRI of the thoracic spine which showed 10th and 11th ribs acute or subacute displaced fractures. Patient was seen by orthopedic surgery. Recommends to follow up in the clinic in 2 weeks. Patient will be continued on Lasix 40 mg daily. Repeat chest x-ray today showed trace right pleural effusion and right basilar linear airspace disease likely atelectasis. Patient did improve symptomatically. Patient will be continued on dexamethasone 4 mg daily for 3 days and stop. Patient is on Cortef for orthostatic hypotension already. Patient will be discharged to rehab. PHYSICAL EXAMINATION: Patient is lying in the bed comfortably, no acute distress, awake alert and oriented.. HEENT: Normocephalic. Neck is supple. Pupils reactive. Nostrils clear. Oral cavity is moist. Ears reveal no drainage. Neck reveals no JVD, carotid bruits, or thyromegaly. CHEST EXAMINATION: Trachea is central. Symmetrical expansion. Right minimal basilar crackles. No rhonchi no wheezing. Lung valdez clear to auscultation and percussion. CARDIAC: Normal S1, S2 with no gallops. No murmurs ABDOMEN: Soft. Bowel sounds normal. No organomegaly. No abdominal bruits. Extremities: Trace bilateral leg edema. No clubbing or cyanosis Neurologically awake, alert, oriented x3 with well-coordinated movements. No focal deficits noted Skin: No rash or skin lesions. Psychiatric: Coperative. Nonsuicidal Musculoskeletal: No joint swelling or deformity. Normal range of motion. Vital Signs 10/19/19 07:15 Temperature 98 F Pulse Rate [ 60 Left] Respiratory 16 Rate Blood Pressure 128/68 [Left Arm] Total time taken greater than 35 minutes including 18 minutes for counseling and coordination of care. Patient Condition at Discharge: Stable Plan - Discharge Summary Discharge Rx Participant: No New Discharge Prescriptions: New Apixaban [Eliquis] 5 mg PO BID tab Calcium Carb-Vit D 500Mg-200Un [Oscal 500+D] 1 each PO TID-W/MEALS #90 tab HYDROcodone/APAP 5-325MG [[place] 5-325] 1 each PO Q6HR PRN 3 Days #12 tab PRN Reason: Pain Cephalexin [Keflex] 500 mg PO TID 3 Days #9 cap Dexamethasone [Hexadrol] 4 mg PO DAILY #3 tab Continue Ferrous Gluconate 324 mg PO BID@0900,2100 #30 tab Furosemide [Lasix] 40 mg PO DAILY@0900 #30 tab Midodrine [ProAmatine] 15 mg PO TID@0800,1200,1700 #60 tab Cholecalciferol [Vitamin D3 (25 Mcg = 1000 Iu)] 5,000 unit PO DAILY@0900 #30 tab Allopurinol [Zyloprim] 300 mg PO DAILY@0900 #30 tab Cyclobenzaprine [Flexeril] 10 mg PO DAILY PRN PRN Reason: MUSCLE SPASMS Pantoprazole Sodium [Protonix] 40 mg PO BID Potassium Chloride ER [K-Dur 20] 20 meq PO DAILY Hydrocortisone [Cortef] 10 mg PO DAILY Hydrocortisone [Cortef] 5 mg PO HS Metoprolol Tartrate [Lopressor] 50 mg PO BID tab Multivitamins, Thera [Multivitamin (formulary)] 1 tab PO DAILY@0900 Discharge Medication List Allopurinol [Zyloprim] 300 mg PO DAILY@0900 #30 tab 08/12/19 [Rx] Cholecalciferol [Vitamin D3 (25 Mcg = 1000 Iu)] 5,000 unit PO DAILY@0900 #30 tab 08/12/19 [Rx] Ferrous Gluconate 324 mg PO BID@0900,2100 #30 tab 08/12/19 [Rx] Furosemide [Lasix] 40 mg PO DAILY@0900 #30 tab 08/12/19 [Rx] Midodrine [ProAmatine] 15 mg PO TID@0800,1200,1700 #60 tab 08/12/19 [Rx] Cyclobenzaprine [Flexeril] 10 mg PO DAILY PRN 09/19/19 [History] Pantoprazole Sodium [Protonix] 40 mg PO BID 09/19/19 [History] Hydrocortisone [Cortef] 5 mg PO HS 09/20/19 [History] Hydrocortisone [Cortef] 10 mg PO DAILY 09/20/19 [History] Potassium Chloride ER [K-Dur 20] 20 meq PO DAILY 09/20/19 [History] Metoprolol Tartrate [Lopressor] 50 mg PO BID tab 09/26/19 [Rx] Multivitamins, Thera [Multivitamin (formulary)] 1 tab PO DAILY@0900 10/12/19 [History] Apixaban [Eliquis] 5 mg PO BID tab 10/19/19 [Rx] Calcium Carb-Vit D 500Mg-200Un [Oscal 500+D] 1 each PO TID-W/MEALS #90 tab 10/19/19 [Rx] Cephalexin [Keflex] 500 mg PO TID 3 Days #9 cap 10/19/19 [Rx] Dexamethasone [Hexadrol] 4 mg PO DAILY #3 tab 10/19/19 [Rx] HYDROcodone/APAP 5-325MG [[place] 5-325] 1 each PO Q6HR PRN 3 Days #12 tab 10/19/19 [Rx] Follow up Appointment(s)/Referral(s): Kevin Bains, PATRICK [PHYSICIAN DIVERSIONAL THERAPIST'S ASSISTANT] - 11/04/19 10:30 am (Patient may follow-up with Kevin Bains PA-C or Dr. Martín Diaz at [facility] in 2-3 week following discharge. ) Rebekah Hood DO [Primary Care Provider] - 1-2 days (ECF) [facility], [NON-STAFF] - Carlita Wilkinson MD [STAFF PHYSICIAN] - 1 Week (we Suggest EMG and nerve conductions of lower extremities as an outpatient. Please call office to schedule your appointment) Activity/Diet/Wound Care/Special Instructions: 1. Patient may wear TLSO brace for comfort and support while sitting upright at greater than 45, while working with therapy, and while ambulating; patient does not have to wear the brace while lying in bed or bathing 2. Patient should avoid excessive bending, twisting, and lifting; no lifting greater than 10 pounds Discharge Disposition: TRANSFER TO SNF/ECF
== END 2019-10-19 16:06 | DRG 291 ==
LOC: EC 14:44 → 4SSUR 17:28
PROVIDERS: ADMIT Internal Medicine; ATTEND Internal Medicine
DX: I50.33 Acute on chronic diastolic (congestive) heart failure (principal); G93.41 Metabolic encephalopathy; J18.9 Pneumonia, unspecified organism; S22.49XA Multiple fractures of ribs, unspecified side, initial encounter for closed fracture; E27.40 Unspecified adrenocortical insufficiency; M48.56XA Collapsed vertebra, not elsewhere classified, lumbar region, initial encounter for fracture; M47.16 Other spondylosis with myelopathy, lumbar region; L03.116 Cellulitis of left lower limb; L03.115 Cellulitis of right lower limb; R44.3 Hallucinations, unspecified; F10.10 Alcohol abuse, uncomplicated; D64.9 Anemia, unspecified; F17.210 Nicotine dependence, cigarettes, uncomplicated; G89.29 Other chronic pain; I48.0 Paroxysmal atrial fibrillation; K57.90 Diverticulosis of intestine, part unspecified, without perforation or abscess without bleeding; M19.90 Unspecified osteoarthritis, unspecified site; M48.061 Spinal stenosis, lumbar region without neurogenic claudication; M48.02 Spinal stenosis, cervical region; M81.0 Age-related osteoporosis without current pathological fracture; N40.0 Benign prostatic hyperplasia without lower urinary tract symptoms; Z96.652 Presence of left artificial knee joint; M47.26 Other spondylosis with radiculopathy, lumbar region; M43.12 Spondylolisthesis, cervical region; K63.5 Polyp of colon; K46.9 Unspecified abdominal hernia without obstruction or gangrene; Z98.84 Bariatric surgery status; Z90.49 Acquired absence of other specified parts of digestive tract; Z87.828 Personal history of other (healed) physical injury and trauma; Z87.19 Personal history of other diseases of the digestive system; Z86.711 Personal history of pulmonary embolism; Z85.528 Personal history of other malignant neoplasm of kidney; Z82.5 Family history of asthma and other chronic lower respiratory diseases; Z82.49 Family history of ischemic heart disease and other diseases of the circulatory system; Z80.41 Family history of malignant neoplasm of ovary; Z79.899 Other long term (current) drug therapy; Z80.3 Family history of malignant neoplasm of breast; Z93.3 Colostomy status; Z79.01 Long term (current) use of anticoagulants
CPT/HCPCS: 36415; 71045; 71046; 72141; 72146; 72148; 80048; 80053; 81001; 82607; 83605; 83735; 83880; 84443; 84484; 85025; 85610; 85730; 87040; 87502; 93005; 94640; 94760; 96374; 99285